=== PATIENT | male | born 1955 | race Caucasian/White ===

== ENCOUNTER 2025-04-01 12:28 | Outpatient (REF) | payer MEDICARE, MEDICAID, SELFPAY ==
--- OUTSIDE RECORDS SUMMARY | 2025-03-16 05:16 | XMS_ITS | Encounter Summary ---
Author Organization [employer] [facility] tem Address [id number] [address] [place] [address] Care Team Providers Care Cabinet Builder Name Role Phone Gato Cha MD Primary Care Provider [phone] Reason for Referral * Misc (Routine) - AuthorizedSpecialtyDiagnoses / ProceduresReferred By Contact Referred To Contact Procedures Discharge follow-up Deana Albert MD [address] [place] [address] Phone: tel: fax: Referral IDStatusReasonStart DateExpiration DateVisits RequestedVisits [id number]/11/202512/11/202611 * Misc (Routine) - AuthorizedSpecialtyDiagnoses / ProceduresReferred By Contact Referred To Contact Procedures Discharge follow-up Deana Albert MD [address] [place] [address] Phone: tel: fax: Referral IDStatusReasonStart DateExpiration DateVisits RequestedVisits [id number]/11/202512/11/202611 * Misc (Routine) - AuthorizedSpecialtyDiagnoses / ProceduresReferred By Contact Referred To Contact Procedures Adult diet Deana Albert MD [address] [place] [address] [address] Phone: tel: fax: Referral IDStatusReasonStart DateExpiration DateVisits RequestedVisits [id number]/11/202512/11/202611 * Misc (Routine) - AuthorizedSpecialtyDiagnoses / ProceduresReferred By Contact Referred To Contact Procedures Discharge Follow-Up Deana Albert MD [address] [place] [address] [address] Phone: tel: fax: Referral IDStatusReasonStart DateExpiration DateVisits RequestedVisits [id number]/11/202512/11/202611 * Misc (Routine) - AuthorizedSpecialtyDiagnoses / ProceduresReferred By Contact Referred To Contact Procedures Discharge Follow-Up Deana Albert MD [address] [facility] [address] [address] Phone: tel: fax: Referral IDStatusReasonStart DateExpiration DateVisits RequestedVisits [id number]/11/202512/11/202611 * Misc (Routine) - AuthorizedSpecialtyDiagnoses / ProceduresReferred By Contact Referred To Contact Procedures Discharge Follow-Up Deana Albert MD [address] [address] Phone: tel: fax: Referral IDStatusReasonStart DateExpiration DateVisits RequestedVisits [id number]/11/202512/11/202611 * Misc (Routine) - AuthorizedSpecialtyDiagnoses / ProceduresReferred By Contact Referred To Contact Diagnoses Sepsis with encephalopathy and septic shock, due to unspecified organism ([facility]) Procedures Follow-up with primary care provider Daena Albert MD [address] [address] Phone: tel: fax: Referral IDStatusReasonStmingo junction DateExpiration DateVisits RequestedVisits [id number]/11/202512/11/202611 Reason for Visit * ReasonCommentsAltered Mental Status * Auth/CertSpecialtyDiagnoses / ProceduresReferred By ContactReferred To Contact Diagnoses Sepsis with encephalopathy and septic shock, due to unspecified organism ([facility]) Sumit Osborne MD [address] [facility], [address] [place] [address] Phone: tel: fax: Referral IDStatusAlissaasonTama DateExpiration DateVisits RequestedVisits [id number] Encounter Details DateTypeDepartmentCare Team (Latest Contact Info)Avquszwjfmm66/03/2025 5:16 AM EST - 03/25/2025 1:20 AM ESTHospital Encounter [facility] [address] [place] [id number] Fritz, Aurelio, DO [address] [facility], 3rd [place] [address] Sumit Osborne MD [address] [facility], [address] [place] [address] Michelle Howell MD [address] [facility], [address] [place] [address] Celina Mckeon, [address] [address] Landy Ness MD [address] [place] [address] Ricarda Reece MD [address] [place] [address] Deana Albert MD [address] [address] Sepsis with encephalopathy and septic shock, due to unspecified organism ([facility]) (Primary Dx); Pneumonia of right lower lobe due to infectious organism; ESRD (end stage renal disease) ([facility]) Discharge Disposition: [facility] Facility-Medicare Cert Social History Tobacco UseTypesPacks/DayYears UsedDateSmoking Tobacco: NeverSmokeless Tobacco: Never Comments:02/25 [facility] - AMS, un able to reach family. Per [place] pt does not have history of smoking on file with them Alcohol UseStandard Drinks/WeekCommentsDefer0 (1 standard drink = 0.6 oz pure alcohol)02/25 [facility] - AMS, unable to reach family.AUDIT-CAnswerDate RecordedQ1: How often do you have a drink containing alcohol?Patient unable to answer 02/25/2025Q2: How many drinks containing alcohol do you have on a typical day when you are drinking?Patient unable to wefcjp3302/25/2025Q3: How often do you have six or more drinks on one occasion?Patient unable to gfexug0702/25/2025 PRAPARE - TransportationAnswerDate RecordedIn the past 12 months, has lack of transportation kept you from medical appointments or from getting medications?No 02/25/2025In the past 12 months, has lack of transportation kept you from meetings, work, or from getting things needed for daily living?No02/25/2025HC UtilitiesAnswerDate RecordedIn the past 12 months has the electric, gas, oil, or water company threatened to shut off services in your home?No02/25/2025Housing InstabilityAnswerDate RecordedAre you worried or concerned that in the next two months you may not have stable housing that you own, rent or stay in as a part of a household?No02/25/2025hildcareAnswerDate RecordedChildcareUnknown 09/21/2018EmploymentAnswerDate DfppdgxqBihewplbmaEhbrkzn56/10/2019Hunger ScreeningAnswerDate RecordedWithin the past 12 months we worried whether our food would run out before we got money to buy more.Never True03/19/2025Within the past 12 months the food we bought just didn't last and we didn't have money to get more.Never True03/19/2025Sex and Gender InformationValueDate RecordedSex Assigned at BirthNot on fileLegal ZgxTtmu9511/15/2014 1:57 PM EDTGender Identity Not on fileSexual OrientationNot on filedocumented as of this encounter Last Filed Vital Signs Vital SignReadingTime TakenCommentsBlood Ccjuywew728/8203/24/2025 10:06 PM EST Ciykp012603/24/2025 10:06 PM GZKSfztrhzwolb10.9 ??C (98.5 ??F)03/24/2025 7:34 PM ESTRespiratory Opzz981505/25/2024 9:09 PM ESTOxygen Pdaguinpdn207%03/24/2025 9:09 PM ESTInhaled Oxygen Concentration--Vhnbcr42.9 kg (176 lb 2.4 oz)03/24/2025 3:23 PM TBPQfwctp549.2 cm (5' 7 )03/22/2025 10:11 AM ESTBody Mass Index27.59 03/22/2025 10:11 AM ESTdocumented in this encounter Functional Status * VitalsQuestionAnswerDate of WzijztmeksDntklwSD298/8203/24/2025 10:06 PM EST Rylee Baez ZOTrlkq2561/11/2025 10:06 PM Rylee Cook RNHeight67 03/22/2025 10:11 AM Elsa Barboza RN * HEENTQuestionAnswerDate of AssessmentAuthorHEENT (WDL)X105/25/2024 7:34 PM Rylee Casas RNR IfkDjepsw14/11/2025 7:34 PM Rylee Cook RNL EyeIntact 03/24/2025 7:34 PM Rylee Cook RNR EarImpaired Hearing;Inqwot2603/23/2025 7:27 AM Parrish Gresham RNL EarIntact;Impaired Jjhsrru0603/23/2025 7:27 AM Parrish Gresham SSNwbkXymdpd06/10/2025 7:27 AM Parrish Gresham, MISTYNasal Drainage ColorUnable to lydbnn9303/23/2025 7:27 AM Parrish Gresham, MISTYNasal Drainage ConsistencyUnable to hixltz3303/23/2025 7:27 AM Parrish Gresham RNThroatIntact;Dry03/23/2025 7:27 AM Parrish Gresham JEPhspysJom67/11/2025 7:34 PM Rylee Cook RNVoiceHoarse 03/23/2025 7:27 AM Parrish Gresham RNMucous Membrane(s)Intact;Dry 03/24/2025 7:34 PM Rylee Cook RNTeethMissing teeth03/24/2025 7:34 PM Rylee Cook RNHead and KtlcLojapwndziz37/11/2025 7:34 PM Rylee Cook RNNeckSymmetrical03/23/2025 7:27 AM Parrish Gresham RNLips Dry;Macmbntfgbq80/11/2025 7:34 PM Rylee Cook RN * ICP/PressureQuestionAnswerDate of AssessmentAuthorMAP (mmHg)8103/24/2025 7:34 PM Rylee Cook RN * IP Hunger/Food Insecurity ScreeningQuestionAnswerDate of AssessmentAuthor Within the past 12 months the food we bought just didn't last and we didn't have money to get more.Never True03/19/2025 3:47 PM Luh Galicia RNWithin the past 12 months we worried whether our food would run out before we got money to buy more.Never True03/19/2025 3:47 PM Luh Galicia RNHunger Screening Complete?Yes03/19/2025 3:47 PM Luh Galicia RNPt. Eligible for Food / SvajpubCo84/06/2025 3:47 PM Luh Galicia RN * Mobility AssessmentQuestionAnswerDate of AssessmentAuthorFailed Criteria Vasopressor(s)03/18/2025 8:00 AM Dia Gandara * ActivityQuestionAnswerDate of AssessmentAuthorActivity PerformedResting in bed 03/24/2025 7:34 PM Rylee Cook RNActivity ResponseTolerated well 03/23/2025 7:41 PM Rylee Cook RNRange of MotionActive;All extremities 03/23/2025 7:41 PM Rylee Cook RNToileting AssistanceAssist with urinal 03/23/2025 7:27 AM Parrish Gresham RNRepositionedSemi Merritt's;Lying left side;Pillow smdxspl7903/25/2025 12:30 AM Rylee Cook RNTransport MethodBed;Vlefrwgsj79/11/2025 8:45 AM Rosana Zafar RN * Deterioration IndexQuestionAnswerDate of AssessmentAuthorDeterioration Index (30-60 mod; 60+ high)43.9503/25/2025 1:15 AM Blake Clindonella * Pulmonary MechanicsQuestionAnswerDate of NxdpjohvwbIxpkiaXlfa1894/11/2025 9:09 PM Jozef Jackson RCP * BEE (kcal)AnswerDate of TnsinuokvyUwcwtt806599/09/2025 10:11 AM Elsa Barboza RN * Opioid Screening (SAFER)QuestionAnswerDate of AssessmentAuthorDo you struggle with any opiates (such as Oxycodone, [place], Percocet, Morphine, Fentanyl, Heroin) that you may need help?Unable to Rgtbty8603/16/2025 5:34 AM Nory Hayes RN * Clinical Practice Guidelines OrderedQuestionAnswerDate of AssessmentAuthor Oxygen IndicationsHome oxygen use03/19/2025 1:54 PM Aurelio Zapata RCP Bronchodilator IndicationsDiseases requiring aerosolized medication;Home duffzon5503/24/2025 10:06 AM Delisa Mejia, PHILPBronchodilator Total2 03/24/2025 10:06 AM Delisa Mejia, PHILPConsult Assessment Consult;Ioipjhqsjpzlcm16/11/2025 10:06 AM Delisa Mejia RCP * Pneumonia Vaccine Screen 65 and OverQuestionAnswerDate of AssessmentAuthorHas the patient received a dose of any pneumococcal vaccine?Prevnar 13 (PCV13) + Pneumovax 23 (PPSV23)03/16/2025 12:01 PM Mirlande Lovelace RNWas a dose of PPSV23 given after the age of 65?Yes03/16/2025 12:01 PM Mirlande Lovelace RNPneumococcal Vaccine Decision:STOP - No Pneumococcal vaccine is indicated 03/16/2025 12:01 PM Mirlande Lovelace RNAre any of the following pneumococcal vaccine contraindications present?No taeowgxdkigqpvtas24/03/2025 12:01 PM Mirlande Lovelace RN * Vital SignsQuestionAnswerDate of ZrvjulzrnrRnxxkfFcO731983/11/2025 9:09 PM Jozef Terrazas RCPO2 DeviceNone (Room air)03/24/2025 9:02 PM Jozef Jackson RCPHeart Rate SourcePulse Ox03/24/2025 9:02 PM Jozef Jackson RCP FiO2 (%)28105/19/2024 8:52 PM Kimberly Munroe RCPPatient Position Semi-ltgvryo4403/24/2025 9:02 PM Jozef Jackson RCP * Skin ManagementQuestionAnswerDate of AssessmentAuthorSkin InspectionWNL 03/24/2025 9:52 AM Trang Prince RCP * Sepsis RN ScreeningQuestionAnswerDate of AssessmentAuthorReasons for Suspending Sepsis Early Detection Alerts (12h)Sepsis not suspected per ywusxfkb22/07/2025 7:15 PM Britni Pastor RN * Fall Risk 65+QuestionAnswerDate of AssessmentAuthorHave you fallen in the past year?1. 5:34 AM Nory Hayes RNDo you feel unsteady while standing or walking?1. 5:34 AM Nory Hayes RNDo you worry about falling?1. 5:34 AM Nory Hayes RNIs there an observable gait, strength or balance problem?1. 5:34 AM Nory Hayes RNIn the past year how many times have you fallen?3. 5:34 AM Nory Hayes RNWere you injured?2. 5:34 AM Nory Hayes RNScore9 03/16/2025 5:34 AM Nory Hayes RN * Stephanie Coma ScaleQuestionAnswerDate of AssessmentAuthorEye Cnssupa200/11/2025 7:34 PM Rylee Cook RNBest Motor Gtoydccj095/11/2025 7:34 PM Rylee Cook RNBest Verbal Qlqhodwp843/11/2025 7:34 PM Rylee Cook RNGlasgow Coma Scale Iwugt2439/11/2025 7:34 PM Rylee Cook RN * Vital SignsQuestionAnswerDate of AssessmentAuthorO2 Flow Rate (L/min)2 03/24/2025 3:23 PM Jb Martines RNIs this an Orthostatic BP?No03/24/2025 3:23 PM Jb Martines RNOrthostatic ErwnsjbcYwgh45/11/2025 3:23 PM Jb Wolf RN * Pain 2QuestionAnswerDate of AssessmentAuthorObserved BehaviorRestless 03/24/2025 10:25 PM Rylee Cook RN * Patient ObservationQuestionAnswerDate of NcvfpafpbuDdauduNfzncc4535.36 03/24/2025 3:23 PM Summer Deal RNPatient Observationspatient leaving HD to go back to room03/21/2025 2:23 PM Adelaide Rg LPN * VitalsQuestionAnswerDate of BnkhnrtixgQoycfpWyjp06. 7:34 PM Rylee Casas RNTemp vuwSfbm9703/24/2025 7:34 PM Rylee Cook RNBP LocationLeft arm03/24/2025 7:34 PM Rylee Cook RNBP MethodAutomatic 03/24/2025 7:34 PM Rylee Cook RN * NeurologicalQuestionAnswerDate of AssessmentAuthorOrientation LevelOriented to person;Oriented to place;Oriented to age;Disoriented to situation;Oriented to time03/24/2025 7:34 PM Rylee Cook RNCognitionFollows commands;Poor judgement;Poor safety xpvroutvd56/11/2025 7:34 PM Rylee Cook RNSpeech Sgdmntk88/11/2025 7:34 PM Rylee Cook RNLUE Motor ResponseResponds to jzvrajmy16/11/2025 7:34 PM Rylee Cook RNLUE Sensation Numbness;Tingling;Svyalpyc20/11/2025 7:34 PM Rylee Cook RNLLE Motor ResponseResponds to hmrkjkfu59/11/2025 7:34 PM Rylee Cook RNLLE SensationNumbness;Tingling;Xocqjvqy17/11/2025 7:34 PM Rylee Cook RNRUE Motor ResponseResponds to vdghkiyn10/11/2025 7:34 PM Rylee Cook RNRUE SensationNumbness;Tingling;Xphgzgpk69/11/2025 7:34 PM Rylee Cook RNRLE Motor ResponseResponds to glignrwx07/11/2025 7:34 PM Rylee Cook RNRLE SensationNumbness;Tingling;Kepzjlxy19/11/2025 7:34 PM Rylee Cook RN Neuro (WDL)X105/25/2024 7:34 PM ESTKiptoo, Rylee, RNSwallowDifficulty cjqjkxzaqs63/11/2025 7:34 PM Rylee Cook, RNRLE Motor StrengthNormal power03/24/2025 7:34 PM Rylee Cook, RNLLE Motor StrengthNormal power 03/24/2025 7:34 PM Rylee Cook, RNL Hand MpyigEmhdrkcz82/11/2025 7:34 PM Rylee Cook, RNR Hand HnuitQltwmbmy34/11/2025 7:34 PM Rylee Cook, RNRUE Motor StrengthNormal power03/24/2025 7:34 PM Rylee Cook, RNLUE Motor StrengthNormal power03/24/2025 7:34 PM Rylee Cook, RNBalanceUnable to hhcrtl0103/24/2025 7:34 PM Rylee Cook, RNPupil HuohnnenpsGei19/11/2025 7:34 PM Rylee Cook, RNR Pupil Size (mm) 7:34 PM Rylee Cook, RNR Pupil NnayyArarg33/11/2025 7:34 PM Rylee Cook, RNR Pupil ZhrhzirjZahde26/11/2025 7:34 PM Rylee Cook, RNL Pupil Size (mm)2 03/24/2025 7:34 PM Rylee Cook, RNL Pupil AaegxYjmji64/11/2025 7:34 PM Rylee Cook, RNL Pupil SysxyxtlKnbfy2025 7:34 PM Rylee Cook, RNR Foot JdsynezrcnciOaxm68/11/2025 7:34 PM Rylee Cook, RNL Foot HhcnowbexmssBsrg23/11/2025 7:34 PM Rylee Cook, RNR Foot Plantar Flexion Weak03/24/2025 7:34 PM Rylee Cook, RNL Foot Plantar FlexionWeak 03/24/2025 7:34 PM Rylee Cook, RNTongue StrvdzppmSyiv28/11/2025 7:34 PM Rylee Cook, RNNeuro UqaphjsaJqld68/11/2025 7:34 PM Rylee Cook RN Relieved byListening and hoxvfylome09/06/2025 4:23 PM Mahsa Field RNNeuro Additional SusekriaheyFz89/06/2025 1:45 AM Flori Hoff RNMotor Function/Sensation AssessmentGrip;Dorsiflexion;Plantar flexion;Motor response;Motor strength;Epfbhybws70/11/2025 7:34 PM Rylee Cook, RNFacial KoomfkxfNhfmdahntxq44/11/2025 7:34 PM Rylee Cook RNRichmond Agitation Sedation Scale (RASS) 6:03 AM Britni Pastor RN * RespiratoryQuestionAnswerDate of AssessmentAuthorRespiratory (WDL)X105/25/2024 7:34 PM Rylee Cook RNVentilator WnyipshKb42/10/2025 7:27 AM Parrish Gresham RNRespiratory Additional VwrulorklenYk85/10/2025 7:27 AM Parrish Smith RN * Pacemaker/ICDQuestionAnswerDate of AssessmentAuthorPacemaker/ICDPacemaker 03/24/2025 7:34 PM Ryele Cook RNCardiac RhythmNormal sinus rhythm 03/24/2025 8:45 AM Rosana Zafar RNEctopyPremature ventricular contractions 03/23/2025 7:27 AM Parrish Gresham RNEctopy FrequencyOccasional 03/23/2025 7:27 AM Parrish Gresham RNPacemaker UavjUvnqhwupj84/11/2025 7:34 PM Rylee Cook RN * Bowel SoundsQuestionAnswerDate of AssessmentAuthorRUQ Bowel SoundsActive 03/24/2025 7:34 PM Rylee Cook RNRLQ Bowel TvrlkvLrhpdb19/11/2025 7:34 PM Rylee Cook RNLUQ Bowel TsmbttBaoedl11/11/2025 7:34 PM Rylee Cook RNLLQ Bowel BtudltEywlpx58/11/2025 7:34 PM Rylee Cook RN * GastrointestinalQuestionAnswerDate of AssessmentAuthorLast Rvev77665 03/24/2025 7:34 PM Rylee Cook, RNPassing UplxbuOcw41/11/2025 8:45 AM Rosana Hernandez RNGastrointestinal (WDL)WDL105/25/2024 7:34 PM Rylee Cook RNAbdomen AssessmentSoft;Limemvhvimkn46/11/2025 7:34 PM Rylee Cook RN Appears NourishedWell Tcsohweye88/11/2025 7:34 PM Rylee Cook RNGI HjybmilsWifz20/11/2025 7:34 PM Rylee Cook RNGastrointestinal Additional WogymxjbrpiAf31/11/2025 7:34 PM Rylee Cook RN * EdemaQuestionAnswerDate of NpbdznfwquKvdzolXyhyctv056/11/2025 7:34 PM Rylee Casas RNRLE Edema+ 7:27 AM Parrish Gresham RNLLE Edema+ 7:27 AM Parrish Gresham, MISTY * RUE Peripheral Vascular AssessmentQuestionAnswerDate of AssessmentAuthorR Radial Pulse+ 7:34 PM Rylee Cook RN * LUE Peripheral Vascular AssessmentQuestionAnswerDate of AssessmentAuthorL Radial Pulse+ 7:34 PM Rylee Cook RN * RLE Peripheral Vascular AssessmentQuestionAnswerDate of AssessmentAuthorR Posterior Tibial Pulse+ 8:00 PM Georgia Hargrove RNR Dorsalis Pedis/Pedal Pulse+ 7:34 PM Rylee Cook RN * LLE Peripheral Vascular AssessmentQuestionAnswerDate of AssessmentAuthorL Posterior Tibial Pulse+ 9:30 AM Rosana Zafar RNL Dorsalis Pedis/Pedal Pulse+ 7:34 PM Rylee Cook RN * MusculoskeletalQuestionAnswerDate of AssessmentAuthorRUEFull movement 03/24/2025 7:34 PM Rylee Cook RNRLEFull movement;Kmiffgpf61/11/2025 7:34 PM Rylee Cook RNLUEFull fmmejduj2025 7:34 PM Rylee Cook RNLLEFull movement;Dkkscoky43/11/2025 7:34 PM Rylee Cook RN Musculoskeletal (WDL)X105/25/2024 7:34 PM Rylee Cook RNMusculoskeletal Additional FvaaicjyvifEn36/10/2025 7:27 AM Parrish Gresham RN * Urine AssessmentQuestionAnswerDate of AssessmentAuthorUrinary IncontinenceYes 03/24/2025 8:45 AM Rosana Zafar RN * Anus/RectumQuestionAnswerDate of AssessmentAuthorAnus/Rectum ([facility])WDL 03/24/2025 7:34 PM Rylee Cook RN * PsychosocialQuestionAnswerDate of AssessmentAuthorPatient Behaviors/Mood Anxious;Fpxaakhay66/11/2025 7:34 PM Rylee Cook RNNeeds ExpressedDenies 03/24/2025 7:34 PM Rylee Cook RNPsychosocial ([facility])X105/25/2024 7:34 PM Rylee Cook RNPerson/Family VisitationNo visitors dxinmai9103/24/2025 7:34 PM Rylee Cook RNPsychosocial Additional YrnjxujyekdIc89/11/2025 7:34 PM Rylee Cook RNAbility to Express FeelingsAble to jisvcou5303/24/2025 7:34 PM Rylee Cook RNAbility to Express NeedsAble to tohboez7603/24/2025 7:34 PM Rylee Cook RNAbility to Express ThoughtsAble to asztkra5603/24/2025 7:34 PM Rylee Cook RNAbilbrenden to Understand OthersSometimes understands 03/24/2025 7:34 PM Rylee Cook RN * IntakeQuestionAnswerDate of AssessmentAuthorPercent Meals Eaten (%)25 03/24/2025 1:00 PM Rosana Zafar RN * Arriaga Fall RiskQuestionAnswerDate of AssessmentAuthorHistory of Falling0 03/24/2025 7:34 PM Rylee Cook, RNSecondary Iffrvadnn4762/11/2025 7:34 PM Rylee Cook, RNAmbulatory Fcty33805/25/2024 7:34 PM Rylee Cook RN Intravenous Therapy/Heparin/Saline Ecuz536305/25/2024 7:34 PM Rylee Cook RNGait/Srzhsxzboejy528/11/2025 7:34 PM Rylee Cook RNMental Ezacsr51 03/24/2025 7:34 PM Rylee Cook, QNGymnk2477/11/2025 7:34 PM Rylee Cook RN * Jus ScaleQuestionAnswerDate of AssessmentAuthorSensory Perceptions3 03/24/2025 7:34 PM Rylee Cook QOHliptlmn417/11/2025 7:34 PM Rylee Cook, MOIrjplvwk936/11/2025 7:34 PM Rylee Cook LOFigshgae941/11/2025 7:34 PM Rylee Cook UWZlymliqxf625/11/2025 7:34 PM Rylee Cook RN Friction and Jiypr43605/25/2024 7:34 PM Rylee Cook RNBraden Scale Score16 03/24/2025 7:34 PM Rylee Cook RN * BSA (Calculated - sq m)AnswerDate of AssessmentAuthor1.9703/22/2025 10:11 AM Elsa Barboza, MISTY * BMI (Calculated)AnswerDate of WgioqnacmfVhwrze81.312 10:11 AM Elsa Jeronimo, MISTY * Charting TypeQuestionAnswerDate of AssessmentAuthorCharting TypeShift yveocatpnt22/11/2025 7:34 PM Rylee Cook RN * Inhalation TherapyQuestionAnswerDate of AssessmentAuthorVolume to be Infused: pulm105/25/2024 9:05 PM Jozef Jackson RCPDelivery TmmsdtCevoxf45/11/2025 9:05 PM Jozef Jackson RCPDuration (Minutes)8105/25/2024 9:52 AM Trang Prince, PHILPPositionHigh Merritt'03/24/2025 9:05 PM Jozef Jackson RCP LsgsciXrdcwtcgj37/11/2025 9:05 PM Jozef Jackson RCP * Patient InformationQuestionAnswerDate of AssessmentAuthorPrimary Caregiver Pulgys4203/19/2025 3:47 PM Luh Galicia RNSupport SystemFamily Members 03/19/2025 3:47 PM Luh Galicia RNReligious/Cultural Factorsdenies 03/19/2025 3:47 PM Lhu Galicia RNInitial Pre-Hospitalization Assessment Completed?Yqjgmuajh89/06/2025 3:47 PM Luh Galicia RN * Activities of Daily LivingQuestionAnswerDate of AssessmentAuthorFunctional StatusTotally odhelryyc13/06/2025 3:46 PM Luh Galicia, RNAmbulationMaximum /06/2025 3:46 PM Luh Galicia RNPGXbmiqetkBegnypwt78/06/2025 3:46 PM Luh Galicia RNDressingNeeds mlmsyvostr49/06/2025 3:46 PM Luh Shelby, RNGroomingNeeds voskilscnm19/06/2025 3:46 PM Luh Galicia RN FeedingNeeds wpchjztgqi35/06/2025 3:46 PM Luh Galicia RNBathingNeeds tspxkynvlz44/06/2025 3:46 PM Luh Galicia RNToiletingNeeds assistance 03/19/2025 3:46 PM Luh Galicia, RN * Services RequestedQuestionAnswerDate of AssessmentAuthorDoes the patient need discharge transportation arranged?Yes03/19/2025 3:47 PM Luh Galicia RN Discharge DispositionSkilled Msngao1903/19/2025 3:47 PM Luh Galicia RN Patient expects to be discharged to:[place]03/19/2025 3:47 PM Luh Galicia RNTransportation ZsvhbpijWmkqdilaz64/06/2025 3:47 PM Luh Galicia RNSkilled [place]/19/2025 3:47 PM Luh Galicia RNSkilled Return Fax Vvqxni111-390-931638/06/2025 3:47 PM Luh Galicia RNSkilled Return Phone Nomcjw957-614-497913/06/2025 3:47 PM Luh Galicia RNDoes the patient wish to have family/friend/caregiver involved in their discharge planning?Yes03/19/2025 3:47 PM Luh Galicia RNDoes the patient plan to return home to a community setting?No, patient to discharge to facility-based provider. See Discharge Cpamashwiub28/06/2025 3:47 PM Luh Galicia RNList ProvidedOther (comment)03/19/2025 3:47 PM Luh Galicia RNPatient choice offeredOther (comment)03/19/2025 3:47 PM Luh Galicia RN * Discharge PlanningQuestionAnswerDate of AssessmentAuthorSupport SystemsFamily members;Other (Comment)03/16/2025 12:02 PM Mirlande Lovelace RNDoes the patient need discharge transport arranged?Yes03/16/2025 12:02 PM Mirlande Lovelace RN * Stool AssessmentQuestionAnswerDate of AssessmentAuthorStool ColorBrown 03/23/2025 7:27 AM Parrish Gresham RNStool BqktfhFegody84/10/2025 7:27 AM Parrish Gresham RNBowel QqdurqxihjkcUtl03/10/2025 7:27 AM Parrish Gresham RN * GenitourinaryQuestionAnswerDate of AssessmentAuthorMale Genitalia Intact;Enlarged oradngr2303/24/2025 8:45 AM Rosana Zafar RNGenitourinary (WDL)X105/25/2024 8:45 AM Rosana Zafar RNGenitourinary SymptomsIncontinence (bladder);Diminished urine tkaepejjxl21/11/2025 8:45 AM Rosana Zafar RN * Abuse Indicator ScreeningQuestionAnswerDate of AssessmentAuthorSafe in HomeUTA 03/16/2025 5:34 AM Nory Hayes RNDo you feel safe in your relationship(s)?UTA03/16/2025 5:34 AM Nory Hayes RNAre you in immediate danger?UTA03/16/2025 5:34 AM Nory Hayes RN * Baseline AssessmentQuestionAnswerDate of AssessmentAuthorTemperature Spikes LnjpoZf8403/24/2025 10:52 AM Magaly Aguila CCC-SLPBehavior/Cognition Alert;Aveogemzwic17/11/2025 10:52 AM Magaly Aguila CCC-SLPVision Functional for self-dgfidjy9103/24/2025 10:52 AM Magaly Aguila CCC-SLP Patient PositioningUpright in bed03/24/2025 10:52 AM Magaly Aguila CCC-SLPBaseline Vocal QualityWet/lziuyj3803/17/2025 11:05 AM Trena Headley CCC-SLPVolitional MfcfzPmbm99/04/2025 11:05 AM Trena Headley CCC-SLP Volitional DzuntokIbxkydm01/04/2025 11:05 AM Trena Headley CCC-SLP DiemeiopqGsjfwgmfyn19/11/2025 10:52 AM Magaly Aguila CCC-SLP Additional Testing ResultsChest X-Ray;CT03/24/2025 10:52 AM Magaly Aguila CCC-SLPLaryngectomyNo03/24/2025 10:52 AM Magaly Aguila CCC-SLPAbility to Control XnpiwadefsSqi52/11/2025 10:52 AM Magaly Aguila CCC-SLP * Consistencies AssessedQuestionAnswerDate of AssessmentAuthorConsistencies WwaacitpAbz13/04/2025 11:05 AM Trena Headley CCC-SLP * Safe EnvironmentQuestionAnswerDate of AssessmentAuthorHourly RoundingYes 03/24/2025 10:00 PM Rylee Cook RNArm Bands OnID;Allergies;Fall 03/24/2025 10:00 PM Rylee Cook RNCall Sher Within JracuPpa49/11/2025 10:00 PM Rylee Cook RNOverbed Table Within MvmdnWbn11/11/2025 10:00 PM Rylee Cook RNBed In Lowest UjvmlvmfGte65/11/2025 10:00 PM Rylee Cook RNBed Wheels PnzuheIcw71/11/2025 10:00 PM Rylee Cook RNSide Rails/Bed Safety3/ 10:00 PM Rylee Cook RNNonSkid Footwear On;Patient in bed03/24/2025 10:00 PM Rylee Cook RNBed/Chair Alarm On Yes/Qedfqaz1103/24/2025 10:00 PM Rylee Cook RN * Hygiene and AssistanceQuestionAnswerDate of AssessmentAuthorSkin CareAnti- fungal powder;Barrier cream/ointment;Cornstarch/Baby powder;Moisturizing Hihfkk0603/24/2025 9:22 AM Dorcas Renteria CNAHygieneBrief changed;Diaper edafsas9803/24/2025 4:45 PM Dorcas Renteria CNAOral CareMouth swabbed 03/24/2025 5:51 AM Kirsten Preston CNAEye CareEyes lucpmvhe03/10/2025 7:41 PM Rylee Cook RNApplied to:Cspekyru05/11/2025 4:51 AM Rylee Cook RNCHG (Chlorhexidine Gluconate) ZzypmqsSqkhsjiup63/11/2025 4:51 AM Rylee Cook RN * PrecautionsQuestionAnswerDate of AssessmentAuthorPrecautions Aspiration/Swallowing;Fall03/24/2025 7:34 PM Rylee Cook RN * Comfort and Environment InterventionsQuestionAnswerDate of AssessmentAuthor Comfort/Environmental InterventionsSpecial mattress/bed03/23/2025 7:27 AM Parrish Smith RN * Safety Equipment at BedsideQuestionAnswerDate of AssessmentAuthorSafety Equipment at BedsideOxygen setup03/23/2025 7:41 PM Rylee Cook RN * Level 4 PureedQuestionAnswerDate of AssessmentAuthorPresentationSpoon 03/17/2025 11:05 AM Trena Headley CCC-SLPOralDecreased bolus formation;Decreased A-P zbkwqlxfxu66/04/2025 11:05 AM Trena Headley CCC-MILKAPharyngealDelayed swallow nmdukernfu31/04/2025 11:05 AM Trena Headley CCC-MILKA * Level 0 ThinQuestionAnswerDate of ZvrnsenvyxRsrbzgMmkuunoanwtpAvrty78/04/2025 11:05 AM Trena Headley CCC-SLPOralSuspect premature qgueboas71/04/2025 11:05 AM Trena Headley CCC-MILKAPharyngealDelayed swallow initiation;Decreased laryngeal elevation;Wet/gurgly vocal niabbwe6803/17/2025 11:05 AM Trena Headley CCC-SLP * Oral/MotorQuestionAnswerDate of AssessmentAuthorLabial CBRAwllemb26/04/2025 11:05 AM Trena Headley CCC-MILKALabial TlhdmgozHgdsbym57/04/2025 11:05 AM Trena Headley CCC-SLPLingual XDRBxdoamw05/04/2025 11:05 AM Trena Headley CCC-SLPLingual HowhyrvmJnkdqdf30/04/2025 11:05 AM Trena Headley CCC-DGSDbrFqov24/04/2025 11:05 AM Trena Headley CCC-NRQCjayKwbu92/04/2025 11:05 AM Trena Headley CCC-SLPVocal KklvuwyO89/04/2025 11:05 AM Trena Headley CCC-SLPVocal QupixcafcZAO33/04/2025 11:05 AM Trena Headley CCC-PROPRIETARY TRADER Overall Oral/Motor QlkgfeB54/04/2025 11:05 AM Trena Headley CCC-SLPLabial JxglirlxpehdBwnsahi86/04/2025 11:05 AM Trena Headley CCC-SLPLingual VbompwqddhvaFciugmw33/04/2025 11:05 AM Trena Headley CCC-SLP * Provider CommunicationQuestionAnswerDate of AssessmentAuthorProvider Role Consulting yerczqwgi82/11/2025 3:00 PM Summer Deal RNProvider NameDr. Maritza Caawjh5703/24/2025 3:00 PM Summer Deal RNMethod of AhrxckrdfhsbqLfsp23/11/2025 3:00 PM Summer Deal RNResponseSee pzqsqp1103/24/2025 3:00 PM Summer Deal RN * Harm Risk AssessmentQuestionAnswerDate of AssessmentAuthorAre you having thoughts of homicide or causing harm to others?No03/16/2025 1:58 PM Alla Samuel RN * Neuro Additional AssessmentsAnswerDate of TodikicnwbUkkxcyUBD43/03/2025 5:35 AM Brandi Chang RN * Special Mattress/BedAnswerDate of AssessmentAuthorLow air loss03/23/2025 7:27 AM Parrish Gresham RN * Blood HistoryQuestionAnswerDate of AssessmentAuthorHave you had a blood transfusion?Vetcvxu8103/16/2025 5:34 AM Nory Hayes RNWould you accept a blood transfusion in a life-threatening situation?Ldluisp1503/16/2025 5:34 AM Nory Hayes RN * Medium/High Fall Risk Interventions (score = 25 and higher)AnswerDate of AssessmentAuthorAdequate lighting/nightlight;Bed alarm;Bed/low position;Bed or chair locked;Call light within reach;Chair alarm on;Diversional activity;Evaluate SPH needs;Fall risk ID band;Reinforce fall risk limits; [place] footwear;Patient fall risk education reinforced;[place] to environment;Personal items withinreach;PT/OT consult;Side rails up x3;Supervise patient dvcvkc4803/24/2025 7:34 PM Rylee Cook RN * VTE Nursing InterventionsQuestionAnswerDate of AssessmentAuthorVTE Prophylaxis TgtlddJyuetzvtrb63/11/2025 7:34 PM Rylee Cook RNType of [facility] VTE ProphylaxisIntermittent pneumatic cuffs (IPC/EPC)03/23/2025 7:41 PM Rylee Cook RNIntermittent Pneumatic Cuff (IPC/EPC)Bilateral lower extremities;Off;Patient odteivf4003/23/2025 7:41 PM Rylee Cook RN * HeadacheQuestionAnswerDate of AssessmentAuthorComplaint of HeadacheNo 03/24/2025 7:34 PM Rylee Cook RN * NeurologicalQuestionAnswerDate of AssessmentAuthorL Pupil ReactionBrisk 03/16/2025 5:35 AM Brandi Chang RNL Pupil Size (mm) 5:35 AM Brandi Taveras RNR Pupil RlydwnxiEgpuw12/03/2025 5:35 AM Brandi Chang RNR Pupil Size (mm) 5:35 AM Brandi Chang RNLevel of Consciousness Responds to Pain03/16/2025 5:35 AM Brandi Chang RNR Pupil ShapeRound 03/16/2025 5:35 AM Brandi Chang RNL Pupil HgjpzSkrzv99/03/2025 5:35 AM Brandi Taveras RNNeuro (WDL)X105/17/2024 5:35 AM Brandi Chang RN * Patient Safety ChecksQuestionAnswerDate of AssessmentAuthorTransducer CheckN/A 03/24/2025 3:00 PM Jb Martines RNAccess YstukVyx87/11/2025 3:00 PM Jb Wolf RNArterial/Venous parameters jylWlm5303/24/2025 3:00 PM Jb Wolf, RNSaline Line double wytoigqEut45/11/2025 3:00 PM Jb Martines RNAir Detector GivsvapEjt81/11/2025 3:00 PM Jb Martines RN Arteriovenous Lines GqaeimLmi22/11/2025 3:00 PM Jb Martines RNHemosafe Clip OnYe03/24/2025 3:00 PM Jb Martines RN * PrescriptionQuestionAnswerDate of AssessmentAuthorEstimated Dry Weight (kg) 2821.8903/21/2025 11:44 AM Shama Victor LPN * Machine ReadingsQuestionAnswerDate of AssessmentAuthorTreatment Status Fnkcyboqv10/11/2025 3:22 PM Jb Martines RN * Height and WeightQuestionAnswerDate of AssessmentAuthorWeight MethodBed scale 03/24/2025 3:23 PM Jb Martines RNPre-Treatment Uwnxmh5921.42105/25/2024 1:16 PM Summer Deal RNPost-Treatment Bzkcst0163.36105/25/2024 3:23 PM Jb Martines RNWeight Change for Billing (kg) (read only)79.9 03/24/2025 3:23 PM Jb Martines RNTreatment Weight Change (kg)-0.2 03/24/2025 3:23 PM Jb Martines RN * Time-OutQuestionAnswerDate of AssessmentAuthorCorrect Treament LocationYes 03/24/2025 1:16 PM Summer Deal RNCorrect Water Quality Checks RejregukjLsy55/11/2025 1:16 PM Summer Deal RNCorrect PatientY 03/24/2025 1:16 PM Summer Deal RNCorrect Access SiteYes 03/24/2025 1:16 PM Summer Deal RNCorrect Treatment OrdersYes 03/24/2025 1:16 PM Summer Deal RNConsents ZhfcrfjaOce47/11/2025 1:16 PM Summer Deal RNRad Studies AvailableN/A105/19/2024 8:17 AM Jelena De Luna RNLab Results LxfbhdqvpZqc10/11/2025 1:16 PM ESTHenderson, Summer, RNSafety Precautions TnxqfbebRji45/11/2025 1:16 PM Summer Deal RN * Pre-Hemodialysis AssessmentQuestionAnswerDate of AssessmentAuthorTreatment LocationChronic Unit03/24/2025 1:16 PM Summer Deal RN * Patient belongings returned?AnswerDate of DgyzqtbmjzEzhfcmRen57/12/2025 1:26 AM Rylee Cook RN * Belongings returned to?AnswerDate of CbgpjjfnwdIwvklcHckprha18/12/2025 1:26 AM Rylee Cook RN * Belongings returned from security/ safe?AnswerDate of AssessmentAuthorNone to fjgwvq2503/25/2025 1:26 AM Rylee Cook RN * Family/Corporate Travel Manager Notified of TransferQuestionAnswerDate of Assessment AuthorFamily/Corporate Travel Manager Notified of TransferUnable to reach03/19/2025 11:31 AM Mahsa Field RN * Readmission RiskQuestionAnswerDate of AssessmentAuthorRisk of Unplanned Readmission (30+ danger)27.7105/26/2024 1:29 AM Blake Clinvijaya * Adult Sepsis RiskQuestionAnswerDate of AssessmentAuthorSIRS Criteria1 03/25/2025 1:20 AM Yael Lozano of Sepsis v.22. 1:20 AM Alaina Lozano * Skin Breakdown PreventionQuestionAnswerDate of AssessmentAuthorBed PositionHOB 45105/25/2024 8:45 AM Rosana Zafar RNPreventative Dressing TypeDry Dressing 03/21/2025 7:45 AM Mahsa Field RNDressing LocationCoccyx/Muxrpy1103/21/2025 7:45 AM Mahsa Field RNDressing BavnmwXmswaeh26/08/2025 7:45 AM Mahsa Field RNExtremities ElevatedBilateral heels105/25/2024 8:45 AM Rosana Zafar RNProtective DeviceWaffle boot - mjdvoweuf99/11/2025 7:34 PM Rylee Cook RN * VisitQuestionAnswerDate of AssessmentAuthorOT Type of VisitDischarge from Therapy;Patient oqcgkwa3703/23/2025 9:30 AM Regan Reddy, OTR/LReason For Medical DeferralVitals outside safe tovftpqabs04/09/2025 7:33 AM Regan Reddy, OTR/LLab ResultsLow vmwiphuayo30/09/2025 7:33 AM Regan Reddy, OTR/LPT Type of VisitDischarge from Iujluyu1803/23/2025 9:31 AM Starr Rivas, PTRN EejyhhbneujyjLug47/10/2025 9:31 AM Starr Rivas, PTMedical Record SkpuqkhsPky70/10/2025 9:31 AM Starr Rivas, PT * Influenza Vaccine Screen - January Through JuneQuestionAnswerDate of AssessmentAuthorHave you had an influenza vaccine this season?Yes03/16/2025 2:50 PM Mirlande Lovelace RN * RN: Observer/Environment EvaluationQuestionAnswerDate of AssessmentAuthor ObserverNot vlqprnrum99/11/2025 7:34 PM Rylee Cook, MISTY * Bedside MonitorQuestionAnswerDate of AssessmentAuthorPulse Ox Monitoring Oqmekbeddo04/03/2025 5:34 AM Nory Hayes, MISTY * HEENTQuestionAnswerDate of AssessmentAuthorHEENT (WDL)WDL105/17/2024 5:35 AM Brandi Chang RN * Weight in (lb) to have BMI = 25AnswerDate of LbzsbisewqIitbjv478. 10:11 AM Elsa Barboza, MISTY * Respiratory AssessmentQuestionAnswerDate of AssessmentAuthorSubjective Commentspt wanted to keep chewing on nebulizer - kept with pt03/19/2025 8:26 PM Kong Patel RCPBilateral Breath YvbozwNlahe03/11/2025 9:09 PM Jozef Terrazas, PHILPRespiratory KbzysmkYfiumsa92/11/2025 9:09 PM Jozef Jackson RCPChest AssessmentChest expansion sygukadcceb51/11/2025 9:09 PM Jozef Terrazas RCPAssessment TypePost-cnmlrlius31/11/2025 9:09 PM Jozef Jackson RCPLevel of JanzaypmicyhdYffqn87/11/2025 9:09 PM Jozef Jackson RCP * Post-Hemodialysis AssessmentQuestionAnswerDate of AssessmentAuthorDialysis length of treatment in nfhyeme87285/11/2025 3:23 PM Jb Martines RN Catheter Ports Locked to fill volume with locking solution (See MAR)Yes 03/24/2025 3:23 PM Jb Martines RNMobility StatusBed Rest03/24/2025 3:23 PM Jb Martines RNRinseback Volume (mL)5004703/24/2025 3:23 PM Jb Martines RNTotal Liters Processed (L)41.512 3:23 PM Jb Martines RN Dialyzer MgbnpqptyOdtdc07/11/2025 3:23 PM Jb Martines RNHemodialysis Intake (mL)1545403/24/2025 3:23 PM Jb Martines RNHemodialysis Output (mL) 9026803/24/2025 3:23 PM Jb Martines RNPatient Response to Treatment toleratd poor03/24/2025 3:23 PM Jb Martines RNPost-Hemodialysis Comments See Post HD note03/24/2025 3:23 PM Jb Martines RNDischarge patient to: Room03/24/2025 3:23 PM Jb Martines RN * Blood Specimen Collection StatusQuestionAnswerDate of AssessmentAuthorBlood Specimen HuxzfnyjwyVsq59/10/2025 7:41 PM Rylee Cook RN * Pain AssessmentQuestionAnswerDate of AssessmentAuthorPain LocationGeneralized 03/24/2025 10:25 PM Rylee Cook RNPain Orientation Right;Left;Anterior;Pfwsrjewp28/10/2025 3:42 PM Parrish Gresham RNPain Intervention(s)Medication (See MAR)03/24/2025 10:25 PM Rylee Cook RN Pain Radiating TowardsN/A105/24/2024 3:42 PM Parrish Gresham RNPain DescriptorsAching;Oajvbfalph37/11/2025 10:25 PM Rylee Cook RNPain UjobelwwToevhuyujjwg40/11/2025 10:25 PM Rylee Cook RNPatient's Stated Acceptable Pain LevelNo pain03/24/2025 10:25 PM Rylee Cook RNResponse to InterventionsPain improved;Quiet03/23/2025 3:42 PM Parrish Gresham RNMultiple Pain FqhpbWj4603/23/2025 3:42 PM Parrish Gresham RNSelf Entered Pain Udrig32305/24/2024 4:31 AM Sally Larkin RNPain Assessment No/denies pain03/24/2025 11:25 PM Rylee Cook RN * FLACC (Face, Legs, Activity, Crying, Consolability)QuestionAnswerDate of AssessmentAuthorPain Rating: FLACC (Rest) - Whsh995 12:00 AM Georgia Hargrove RNPain Rating: FLACC (Rest) - Czfd169 12:00 AM Georgia Hargrove RNPain Rating: FLACC (Rest) - Aqmjtvbu550/04/2025 12:00 AM Georgia Hargrove RNPain Rating: FLACC (Rest) - Cem079 12:00 AM Georgia Hargrove RNPain Rating: FLACC (Rest) - Naqlxffansxmb658/04/2025 12:00 AM Georgia Heredia RNScore: FLACC (Rest) 12:00 AM Georgia Hargrove RNPain Rating: FLACC (Activity) - Egep518 4:00 PM En Li RNPain Rating: FLACC (Activity) - Xisd865 4:00 PM En Li RNPain Rating: FLACC (Activity) 4:00 PM En Li RNPain Rating: FLACC (Activity) - Mht10603/16/2025 4:00 PM En Li RNPain Rating: FLACC (Activity) - Gyqcmfmqwkbwh729/03/2025 4:00 PM En Li RNScore: FLACC (Activity)6105/17/2024 4:00 PM En Li RN * ReflexesQuestionAnswerDate of AssessmentAuthorL DjjvvacTgxkfs15/10/2025 7:27 AM Parrish Gresham RNCoughPresent03/23/2025 7:27 AM Parrish Gresham RNGagUnable to mwumje2403/23/2025 7:27 AM Parrish Gresham RNR GlfqqcaSlfxjt64/10/2025 7:27 AM Parrish Gresham, MISTY * NutritionQuestionAnswerDate of AssessmentAuthorFluid Restrictionsno fluids 03/23/2025 7:41 PM Rylee Cook RNCurrent Diet TypeLevel 5 Minced and Moist;Level 3 Moderately Thick03/24/2025 7:34 PM Rylee Cook, RNAppetite Good03/24/2025 8:45 AM Rosana Zafar RNSnackapple sauce & ogsvoel4303/23/2025 9:31 PM Rylee Cook RNRoom ServiceNon Appropriate for room service 03/24/2025 7:34 PM Rylee Cook RNNPO for:Per order03/17/2025 8:00 AM Trena Reagan RN * Respiratory InterventionsAnswerDate of AssessmentAuthorCough and deep breathe 03/23/2025 7:27 AM Parrish Gresham, MISTY * Cough and Deep BreatheQuestionAnswerDate of AssessmentAuthorCough and Deep FzmmonfAov64/10/2025 7:27 AM Parrish Gresham, MISTY * IntegumentaryQuestionAnswerDate of AssessmentAuthorSkin Integrity Bruising;Excoriation;Vlgtsni0703/24/2025 8:45 AM Rosana Zafar RNSkin Color Pale;Ebrgxnuisz99/11/2025 7:34 PM Rylee Cook RNSkin TempWarm;Dry 03/24/2025 7:34 PM Rylee Cook RNCosignI Reviewed & Agree With The Skin and Wound Ajubzewneg93/06/2025 1:45 AM Zenia Smiley, RNBruising location Arm;Hand;Qowscoe1103/24/2025 8:45 AM ESTWade, Rosana, RNBruising Orientation Bilateral;Left03/24/2025 8:45 AM ESTWade, Rosana, RNExcoriation Location Adugkuuz54/11/2025 8:45 AM ESTWade, Rosana, RNExcoriation OrientationBilateral 03/24/2025 8:45 AM ESTWade, Rosana, RNFlaking BjzhwvzrRtau98/11/2025 8:45 AM ESTWade, Rosana, RNFlaking VousprykdrbYjgfcogif06/11/2025 8:45 AM ESTWade, Rosana, RNScaling LocationFoot;Leg03/24/2025 8:45 AM ESTWade, Rosana, RNScaling BgaucwdbmviThnalvdeg91/11/2025 8:45 AM ESTWade, Rosana, RNSwelling Location Huespam6703/24/2025 8:45 AM ESTWade, Rosana, RNSwelling OrientationBilateral 03/23/2025 7:27 AM Parrish Gresham RNIntegumentary (WDL)X105/25/2024 7:34 PM Rylee Cook RN * Patient medications returnedAnswerDate of AssessmentAuthorNone to return 03/25/2025 1:26 AM Rylee Cook RN * Adult Non-Verbal Pain ScoreQuestionAnswerDate of AssessmentAuthorFacial Bbwalrqqdf595/03/2025 8:00 AM En Li RNActivity/Movement0 03/16/2025 8:00 AM En Li RNGuarding0105/17/2024 8:00 AM En Dempsey RNVital Kmerh57705/17/2024 8:00 AM En Li RN Respiratory Khvkqrof748/03/2025 8:00 AM En Li RNAdu Nonverbal Pain Kaexj49605/17/2024 8:00 AM En Li RN * Dominant HandQuestionAnswerDate of AssessmentAuthorWhich is your dominant hand?Right03/19/2025 11:00 AM Mahsa Field RN * Pain ScoreAnswerDate of FywgnojrqxTgvwea045/11/2025 10:25 PM Rylee Cook RN * Confusion Assessment Method (CAM)QuestionAnswerDate of AssessmentAuthorAcute OnadlFw7703/24/2025 7:34 PM Rylee Cook, RNFluctuating IgitpvNm49/11/2025 8:45 AM Rosana Zafar RNInattentionNo03/24/2025 8:45 AM Rosana Zafar RN Disorganized BsvqapcaCc17/11/2025 8:45 AM Rosana Zafar RNRate Patient's Level of ConsciousnessAlert (Normal), No03/24/2025 8:45 AM Rosana Zafar RN Delirium UhckiyvXl18/11/2025 8:45 AM Rosana Zafar RN * Confusion Assessment Method-ICU (CAM-ICU)QuestionAnswerDate of Assessment AuthorFeature 1: Acute Onset or Fluctuating KyxivlWfmjbakt20/03/2025 4:00 PM En Li RNFeature 2: GqwfutdloshPqmkqlho45/03/2025 4:00 PM En Dempsey RN * Feature 3: Altered Level of ConsciousnessAnswerDate of AssessmentAuthor Ifcwcbig62/07/2025 6:03 AM Britni Pastor RN * Fall Risk ScaleQuestionAnswerDate of AssessmentAuthorFall Risk ScaleMorse Fall Risk Scale03/24/2025 7:34 PM Rylee Cook RN * Urine Output/AssessmentQuestionAnswerDate of NwuiagliobLtouwoAifrv710 03/24/2025 10:07 PM Rylee Cook RNBladder Scan Volume Pre-Void or Cath (mL)6903/19/2025 1:10 PM Mahsa Field RNBladder Scan Volume Post-Void (mL) 4:00 PM Mahsa Field RNUrine EntoyUextz51/11/2025 10:07 PM EST Rylee Baez RNUrine WelvbbvvyhCswhm20/11/2025 10:07 PM Rylee Cook RN * Neuro ShortQuestionAnswerDate of AssessmentAuthorLevel of ConsciousnessAlert 03/24/2025 3:23 PM Jb Martines RNNeuro ([facility])X105/25/2024 3:23 PM EST Jb Reddy RN * Respiratory ShortQuestionAnswerDate of AssessmentAuthorR Breath SoundsClear 03/24/2025 3:23 PM Jb Martines RNL Breath RkbghfUkoqn80/11/2025 3:23 PM Jb Martines RNCoughNone105/25/2024 1:16 PM Summer Deal RN Respiratory ([facility])X105/25/2024 3:23 PM Jb Martines RN * Cardiac ShortQuestionAnswerDate of AssessmentAuthorCardiac RegularityRegular 03/24/2025 3:23 PM Jb Martines RNCardiac ([facility])WDL105/25/2024 3:23 PM Jb Wolf RN * Peripheral Vascular ShortQuestionAnswerDate of AssessmentAuthorGeneralized LbubrPpoy90/11/2025 3:23 PM Jb Martines RNCyanosisNone105/25/2024 3:23 PM Jb Martines RNPeripheral Vascular (WDL)WDL105/25/2024 3:23 PM Jb Martines RN * Integumentary ShortQuestionAnswerDate of AssessmentAuthorSkin Integrity Xrrkfcke80/11/2025 3:23 PM Jb Martines RNSkin Locationgeneralized 03/24/2025 3:23 PM Jb Martines RNIntegumentary (WD)WDL105/25/2024 3:23 PM Jb Martines RN * Tattoos/PiercingsQuestionAnswerDate of AssessmentAuthorPiercings RemainingNo 03/19/2025 1:45 AM Flori Hoff RNDoes patient have tattoos?No03/19/2025 1:45 AM Flori Hoff RN * PsychosocialQuestionAnswerDate of AssessmentAuthorPsychosocial (WDL)WDL 03/24/2025 3:23 PM Jb Martines RN * Alcohol/Subtance Abuse AssessmentQuestionAnswerDate of AssessmentAuthor Alcohol/Substance AssessmentNo - Patient Cydxfp0503/19/2025 3:46 PM Luh Galicia RN * Patient/Caregiver GoalsQuestionAnswerDate of AssessmentAuthoHolmes Regional Medical Centered [facility] ([employer])03/19/2025 3:47 PM Luh Galicia RN Patient/Caregiver GoalsSkilled Nursing Care03/19/2025 3:47 PM Luh Galicia RN * Community Provider ReferralQuestionAnswerDate of AssessmentAuthorCommunity Provider JsubuymeRhkd06/06/2025 3:47 PM Luh Galicia RN * Readmission EvaluationQuestionAnswerDate of AssessmentAuthorIs this admission a 30-day gwdjsusapbgPh70/06/2025 3:47 PM Luh Galicia RN * [place] Suicide BehaviorQuestionAnswerDate of AssessmentAuthor6. Have you ever done anything, started to do anything, or prepared to do anything to end your life?No03/16/2025 1:58 PM Alla Viramontes RN * Suicidal Ideation (Last Month)QuestionAnswerDate of AssessmentAuthor1. In the last month have you wished you were or wished you could go to sleep and not wake up?No03/16/2025 1:58 PM Alla Viramontes RN2. In the last month have you actually had any thoughts of killing yourself?No03/16/2025 1:58 PM Alla Viramontes RNAble to assess?Yes03/16/2025 1:58 PM Alla Samuel RN * Oxygen TherapyQuestionAnswerDate of AssessmentAuthorPulse Oximetry Type Mgempgjfqr08/11/2025 3:23 PM Jb Martines RN * ADL AssessmentQuestionAnswerDate of AssessmentAuthorLevel of Hygiene AssistanceComplete ecvkvm8203/24/2025 7:34 PM Rylee Cook RNLevel of Feeding AssistanceNeeds set up;Needs fzerqz8203/24/2025 7:34 PM Rylee Cook RN * AbdominalQuestionAnswerDate of AssessmentAuthorGastrointestinal (WDL)X 03/16/2025 5:35 AM Brandi Chang RN * CardiovascularQuestionAnswerDate of AssessmentAuthorHeart SoundsMurmur 03/16/2025 5:35 AM Brandi Chang RNCardiovascular (WDL)X105/17/2024 5:35 AM Brandi Chang RN * GenitourinaryQuestionAnswerDate of AssessmentAuthorGenitourinary (WDL)X 03/16/2025 5:35 AM Brandi Chang RN * Vitals TimerQuestionAnswerDate of AssessmentAuthorRestart Vitals TimerYes 03/24/2025 8:08 AM Dorcas Renteria CNA * Respiratory (WDL)AnswerDate of EqgrjefkwtPftgniQSR51/03/2025 5:35 AM Brandi Chang RN * CardiovascularQuestionAnswerDate of AssessmentAuthorCardiovascular (WDL)X 03/24/2025 7:34 PM Rylee Cook RNCardiac VytmyxrfhrIwvxgld96/11/2025 8:45 AM Rosana Zafar RNBedside CeubmljqmtGbqokcylv76/11/2025 8:45 AM Rosana Hernandez RNMonitoring XygeblxmubtuvRrzsrnzzju57/11/2025 8:45 AM Rosana Zafar RNMonitoring AlarmsAudible;Alarms Set and Jekvsoq9803/24/2025 8:45 AM Rosana Hernandez RNCapillary RefillLess than/equal to 3 seconds (All extremities) 03/24/2025 7:34 PM Rylee Cook RNPulsesR dorsalis pedis/pedal;L dorsalis pedis/pedal;R radial;L xfckiq2503/24/2025 7:34 PM Rylee Cook RNHeart SoundsS1, S203/24/2025 7:34 PM Rylee Cook RNTelemetry Box PnebusY321 03/21/2025 3:29 PM Mahsa Field RNEdemaScrotal105/25/2024 7:34 PM Rylee Casas RNPVS Additional CzjajwrpuviQc58/06/2025 1:45 AM Flori Hoff RNJugular Venous Distention (JVD)None03/24/2025 7:34 PM Rylee Cook RNCardiac BmoisgowAygu25/11/2025 7:34 PM Rylee Cook RN * Discharge PlanningQuestionAnswerDate of AssessmentAuthorLiving Arrangements Nursing Home03/19/2025 3:47 PM Luh Galicia RNAssistance Neededad 03/19/2025 3:47 PM Luh Galicia RNType [facility]25 3:47 PM [facility]/19/2025 3:47 PM [facility] ZdsactwxPb11/06/2025 3:47 PM Luh Galicia, RN * TB ScreeningQuestionAnswerDate of AssessmentAuthorPatient has prolonged cough? Mpxsxkl0403/16/2025 5:34 AM Nory Hayes RNPatient has bloody cough?Unknown 03/16/2025 5:34 AM Nory Hayes RNPatient has fever?Orvxmfo3903/16/2025 5:34 AM Nory Hayes RNPatient has night sweats?Zqdmehq5003/16/2025 5:34 AM Nory Hooker RNPatient has weight loss?Bbodkzd9803/16/2025 5:34 AM Nory Hayes RNPatient has positive PPD?Mfvrgfi0703/16/2025 5:34 AM Nory Hayes RN * Critical ResultsQuestionAnswerDate of AssessmentAuthorProvider Namedustin tmfiaex49/09/2025 6:11 AM Britni Pastor RNCritical Results Commenthgb 6.8105/23/2024 6:11 AM Britni Pastor RNMethod of CommunicationCall 03/22/2025 6:11 AM Britni Pastor RN * Reason for CommunicationQuestionAnswerDate of AssessmentAuthorReason for UspvqqsgfeqykUpbvqjb03/11/2025 6:53 PM Rosana Zafar RN * Evaluate PatientQuestionAnswerDate of AssessmentAuthorEvaluate Patient Comment Pt temp 100.7, had tylenol an hour prior, SBP 80s/MAP 50s, levo restarted 03/18/2025 12:00 AM Steffi Hayes RN * OrdersQuestionAnswerDate of AssessmentAuthorOrders Commenthmg 7.2, drop from 8.0. recheck hmg in a few hours03/18/2025 3:45 AM Georgia Hargrove RN * Other CommunicationQuestionAnswerDate of AssessmentAuthorOther Communication CommentmaNavas aware of low urine ojoadd0603/16/2025 11:00 PM Georgia Hargrove RN * Blood Return Present?AnswerDate of FjzfiravkeBiexwwTbd14/11/2025 1:30 PM Summer Lizama RN * [place] Suicide Risk LevelAnswerDate of AssessmentAuthorNot at Suicide Risk 03/16/2025 1:58 PM Alla Viramontes RN * Penetration/Aspiration ScaleQuestionAnswerDate of AssessmentAuthorLevel 0 Thin 8105/25/2024 10:52 AM Magaly Aguila CCC-SLPLevel 2 Mildly Thick8 03/24/2025 10:52 AM Magaly Aguila CCC-MILKALevel 3 Moderately Thick1 03/24/2025 10:52 AM Magaly Aguila CCC-SLPLevel 4 Trqtcq375 10:52 AM Magaly Aguila CCC-SLPLevel 6 Soft & Bite-Ekpif812 10:52 AM Magaly Aguila CCC-SLPRegular 10:52 AM Magaly Sanderson CCC-SLPPenetration/Aspiration Scale EofrzsxxvW60/11/2025 10:52 AM Magaly Aguila CCC-SLP * HandoffQuestionAnswerDate of AssessmentAuthorHandoff Report:Given to Next Shift RN03/24/2025 6:55 PM Rosana Zafar RNPerson Handoff Given To / Received FtxcZwtco09/11/2025 6:55 PM Rosana Zafar RNHandoff Comments:report 03/23/2025 7:09 PM Parrish Gresham RN * VisitQuestionAnswerDate of AssessmentAuthorAllergies Marked As Reviewed Isnfhysa29/11/2025 10:52 AM Magaly Aguila CCC-SLPFood or Dye TbkzoorfmDc63/11/2025 10:52 AM Magaly Aguila CCC-SLP * Treatment PlanQuestionAnswerDate of AssessmentAuthorDurationUntil discharge 03/24/2025 10:52 AM Magaly Aguila CCC-SLPFrequency2-3days/week 03/24/2025 10:52 AM Magaly Aguila CCC-SLP * Discharge Recommendations for Safe Patient TransitionQuestionAnswerDate of AssessmentAuthorCurrent Impairments Informing Therapy RecommendationSwallowing 03/19/2025 10:12 AM Tatiana Leon CCC-SLPSLP Therapy Recommendations Continue ST crhumhak09/11/2025 10:52 AM Magaly Aguila CCC-SLP * VitalsQuestionAnswerDate of DqqivddabsZksrbvKC448/8203/24/2025 10:06 PM Rylee Casas RNPulse7703/24/2025 10:06 PM Rylee Cook RNHeight67 03/22/2025 10:11 AM Elsa Barboza RN * ICP/PressureQuestionAnswerDate of AssessmentAuthorMAP (mmHg)8103/24/2025 7:34 PM Rylee Cook RN * ActivityQuestionAnswerDate of AssessmentAuthorActivity PerformedResting in bed 03/24/2025 7:34 PM Rylee Cook RNActivity ResponseTolerated well 03/23/2025 7:41 PM Rylee Cook RNRange of MotionActive;All extremities 03/23/2025 7:41 PM Rylee Cook RNToileting AssistanceAssist with urinal 03/23/2025 7:27 AM Parrish Gresham RNRepositionedSemi Merritt's;Lying left side;Pillow yttlnos7303/25/2025 12:30 AM Rylee Cook RNTransport MethodBed;Snbwxbqcv54/11/2025 8:45 AM Rosana Zafar RN * Pulmonary MechanicsQuestionAnswerDate of VogprjdcibKntjwnNidb3400/11/2025 9:09 PM Jozef Jackson RCP * BEE (kcal)AnswerDate of IylwamptcdXfrwhf170817/09/2025 10:11 AM Elsa Barboza RN * Vital SignsQuestionAnswerDate of NkhxpzrtiqDymxejQuX001164/11/2025 9:09 PM Jozef Terrazas RCPHeart Rate SourcePulse Ox03/24/2025 9:02 PM Jozef Jackson RCPPatient PositionSemi-tvoysvc9003/24/2025 9:02 PM Jozef Jackson RCP * Vital SignsQuestionAnswerDate of AssessmentAuthorIs this an Orthostatic BP?No 03/24/2025 3:23 PM Jb Martines RNOrthostatic LprnpzudVgkk31/11/2025 3:23 PM Jb Martines RN * Patient ObservationQuestionAnswerDate of AnrolgdjtcLtqdzcGxeeka6019.36 03/24/2025 3:23 PM Summer Deal RN * VitalsQuestionAnswerDate of XqjyjmdiclRmrfyaSzxc12. 7:34 PM Rylee Casas RNTemp kzkJxyf1903/24/2025 7:34 PM Rylee Cook RNBP LocationLeft arm03/24/2025 7:34 PM Rylee Cook RNBP MethodAutomatic 03/24/2025 7:34 PM Rylee Cook RN * BSA (Calculated - sq m)AnswerDate of AssessmentAuthor1.9703/22/2025 10:11 AM Elsa Barboza RN * BMI (Calculated)AnswerDate of YzbuuquxhaIijujb17.312 10:11 AM Elsa Jeronimo RN * Activities of Daily LivingQuestionAnswerDate of AssessmentAuthorFunctional StatusTotally fsgbifdsk81/06/2025 3:46 PM Luh Galicia RNAmbulationMaximum vbyipwnrmb56/06/2025 3:46 PM Luh Galicia RNVIJfzyydaiLorsaycn31/06/2025 3:46 PM Luh Galicia RNDressingNeeds wlgiciymdf82/06/2025 3:46 PM Luh Shelby RNGroomingNeeds /06/2025 3:46 PM Luh Galicia RN FeedingNeeds ylbkirsqvf07/06/2025 3:46 PM Luh Galicia RNBathingNeeds ntfomunjlu00/06/2025 3:46 PM Luh Galicia RNToiletingNeeds assistance 03/19/2025 3:46 PM Luh Galicia RN * Safe EnvironmentQuestionAnswerDate of AssessmentAuthorCall Sher Within Reach Yes03/24/2025 10:00 PM Rylee Cook RNBed In Lowest JmnxsbyiSnq75/11/2025 10:00 PM Rylee Cook RNBed Wheels CdmmhaWzr67/11/2025 10:00 PM Rylee Casas RN * PrescriptionQuestionAnswerDate of AssessmentAuthorEstimated Dry Weight (kg) 2821.8903/21/2025 11:44 AM Shama Victor LPN * Height and WeightQuestionAnswerDate of AssessmentAuthorWeight MethodBed scale 03/24/2025 3:23 PM Jb Martines RN * Skin Breakdown PreventionQuestionAnswerDate of AssessmentAuthorBed PositionHOB 45105/25/2024 8:45 AM Rosana Zafar RNExtremities ElevatedBilateral heels 03/24/2025 8:45 AM Rosana Zafar RNProtective DeviceWaffle boot - bilateral 03/24/2025 7:34 PM Rylee Cook RN * VisitQuestionAnswerDate of AssessmentAuthorOT Type of VisitDischarge from Therapy;Patient gsutpwz5803/23/2025 9:30 AM Regan Reddy, OTR/LReason For Medical DeferralVitals outside safe swjttluycm38/09/2025 7:33 AM Regan Reddy, OTR/LLab ResultsLow geireiyobh13/09/2025 7:33 AM Regan Reddy, OTR/LPT Type of VisitDischarge from Urzsjku2003/23/2025 9:31 AM Starr Rivas, PTRN NjjmmoqrlhfheYta25/10/2025 9:31 AM Starr Rivas, PTMedical Record DybnofsqUll60/10/2025 9:31 AM Starr Rivas, PT * Weight in (lb) to have BMI = 25AnswerDate of OerogazzlkCupnus541. 10:11 AM Elsa Barboza RN * Dominant HandQuestionAnswerDate of AssessmentAuthorWhich is your dominant hand?Right03/19/2025 11:00 AM Mahsa Field RN documented as of this encounter Mental Status * VitalsQuestionAnswerEntry PdnnCaioasHY576/8203/24/2025 10:06 PM Rylee Cook RNPulse7703/24/2025 10:06 PM Rylee Cook RN * HEENTQuestionAnswerEntry DateAuthorHEENT (WDL)X105/25/2024 7:34 PM Rylee Cook RNR YqhUmyepq69/11/2025 7:34 PM Rylee Cook RNL EyeIntact 03/24/2025 7:34 PM Rylee Cook RNR EarImpaired Hearing;Forzdb4303/23/2025 7:27 AM ESTRoxas, Parrish Eloy, RNL EarIntact;Impaired Cxdbztb6803/23/2025 7:27 AM Parrish Gresham RNNoseIntact03/23/2025 7:27 AM Parrish Gresham RNNasal Drainage ColorUnable to gauylq8903/23/2025 7:27 AM Parrish Gresham RNNasal Drainage ConsistencyUnable to nkckeq8103/23/2025 7:27 AM Parrish Gresham RNThroatIntact;Dry03/23/2025 7:27 AM Parrish Gresham YGLzodxrOcs29/11/2025 7:34 PM Rylee Cook RNVoiceHoarse 03/23/2025 7:27 AM Parrish Grehsam RNMucous Membrane(s)Intact;Dry 03/24/2025 7:34 PM Rylee Cook RNTeethMissing teeth03/24/2025 7:34 PM Rylee Cook RNHead and KihgYyyprbtdyts77/11/2025 7:34 PM Rylee Cook RNNeckSymmetrical03/23/2025 7:27 AM Parrish Gresham RNLips Dry;Ldyaqkxlazv16/11/2025 7:34 PM Rylee Cook RN * ICP/PressureQuestionAnswerEntry DateAuthorMAP (mmHg)8103/24/2025 7:34 PM Rylee Casas RN * ActivityQuestionAnswerEntry DateAuthorTransport MethodBed;Ypsklzeen39/11/2025 8:45 AM Rosana Zafar RN * Pulmonary MechanicsQuestionAnswerEntry QmsqYoydmoUopz4073/11/2025 9:09 PM Jozef Terrazas RCP * Vital SignsQuestionAnswerEntry JaddZhdlgmYdR794040/11/2025 9:09 PM Jozef Jackson RCPO2 DeviceNone (Room air)03/24/2025 9:02 PM Jozef Jackson RCP Heart Rate SourcePulse Ox03/24/2025 9:02 PM Jozef Jackson RCPFiO2 (%)28 03/18/2025 8:52 PM Ludwig Kimberlykurt Perkins, RCPPatient PositionSemi-fowlers 03/24/2025 9:02 PM Jozef Jackson RCP * [place] Coma ScaleQuestionAnswerEntry DateAuthorEye Byleect929/11/2025 7:34 PM Rylee Cook RNBest Motor Fosqdkgw124/11/2025 7:34 PM Rylee Cook RNBest Verbal Cwjdgipp001/11/2025 7:34 PM Rylee Cook RNGlasgow Coma Scale Pzlnq3353/11/2025 7:34 PM Rylee Cook RN * Vital SignsQuestionAnswerEntry DateAuthorO2 Flow Rate (L/min) 3:23 PM Jb Martines RNIs this an Orthostatic BP?No03/24/2025 3:23 PM Jb Wolf RNOrthostatic QrlvhwznOxvf14/11/2025 3:23 PM Jb Martines RN * Pain 2QuestionAnswerEntry DateAuthorObserved EawwyaraOofdyofg88/11/2025 10:25 PM Rylee Cook RN * VitalsQuestionAnswerEntry BwglHrhiyuPiht76. 7:34 PM Rylee Cook RNTemp sjmMdei6803/24/2025 7:34 PM Rylee Cook RNBP LocationLeft arm03/24/2025 7:34 PM Rylee Cook RNBP VxhwerJpxtdcuvk68/11/2025 7:34 PM Rylee Cook RN * NeurologicalQuestionAnswerEntry DateAuthorOrientation LevelOriented to person;Oriented to place;Oriented to age;Disoriented to situation;Oriented to time03/24/2025 7:34 PM Rylee Cook RNCognitionFollows commands;Poor judgement;Poor safety affkbiqrv53/11/2025 7:34 PM Rylee Cook RNSpeech Owkqhmn13/11/2025 7:34 PM Rylee Cook RNLUE Motor ResponseResponds to iipcgrbb32/11/2025 7:34 PM Rylee Cook, RNLUE Sensation Numbness;Tingling;Gulkgnuk73/11/2025 7:34 PM Rylee Cook, RNLLE Motor ResponseResponds to ugfrmitn54/11/2025 7:34 PM Rylee Cook, RNLLE SensationNumbness;Tingling;Mahpicpq63/11/2025 7:34 PM Rylee Cook, RNRUE Motor ResponseResponds to ukyimcec46/11/2025 7:34 PM Rylee Cook, RNRUE SensationNumbness;Tingling;Uutreesx29/11/2025 7:34 PM Rylee Cook, RNRLE Motor ResponseResponds to /11/2025 7:34 PM Rylee Cook, RNRLE SensationNumbness;Tingling;Jzhksqzz22/11/2025 7:34 PM Rylee Cook RN Neuro (WDL)X105/25/2024 7:34 PM Rylee Cook, RNSwallowDifficulty pogvmciqus41/11/2025 7:34 PM Rylee Cook RNRLE Motor StrengthNormal power03/24/2025 7:34 PM Rylee Cook, RNLLE Motor StrengthNormal power 03/24/2025 7:34 PM Rylee Cook, RNL Hand AbptgDtkgjacq32/11/2025 7:34 PM Rylee Cook RNR Hand QhlqnPiczmgfl78/11/2025 7:34 PM Rylee Cook, RNRUE Motor StrengthNormal power03/24/2025 7:34 PM Rylee Cook, RNLUE Motor StrengthNormal power03/24/2025 7:34 PM Rylee Cook RNBalanceUnable to szpapp3303/24/2025 7:34 PM Rylee Cook RNPupil MzjkxhawtlZvu20/11/2025 7:34 PM Rylee Cook RNR Pupil Size (mm) 7:34 PM Rylee Cook RNR Pupil UdhdhKacfg20/11/2025 7:34 PM ESTKiptoo, Rylee, RNR Pupil KwlxysleKtrrc09/11/2025 7:34 PM Rylee Cook, RNL Pupil Size (mm)2 03/24/2025 7:34 PM Rylee Cook, RNL Pupil MvyyoOytxw14/11/2025 7:34 PM yRlee Cook, RNL Pupil MmexfudnGotnb74/11/2025 7:34 PM Rylee Cook, RNR Foot YmvevxlcoegcBetr08/11/2025 7:34 PM Rylee Cook, RNL Foot EuonzkssszapKyou83/11/2025 7:34 PM Rylee Cook, RNR Foot Plantar Flexion Weak03/24/2025 7:34 PM Rylee Cook, RNL Foot Plantar FlexionWeak 03/24/2025 7:34 PM Rylee Cook RNTongue WydcivdolPibt68/11/2025 7:34 PM Rylee Cook RNNeuro VbjcasmfYazo42/11/2025 7:34 PM Rylee Cook, RN Relieved byListening and elndgblzsq45/06/2025 4:23 PM Mahsa Field RNNeuro Additional ObganmzeoroXn62/06/2025 1:45 AM Flori Hoff RNMotor Function/Sensation AssessmentGrip;Dorsiflexion;Plantar flexion;Motor response;Motor strength;Gajtmbadz13/11/2025 7:34 PM Rylee Cook, RNFacial GfjyarxsYywzkykaunb93/11/2025 7:34 PM Rylee Cook RNRichmond Agitation Sedation Scale (RASS) 6:03 AM Britni Pastor RN * RespiratoryQuestionAnswerEntry DateAuthorRespiratory (WDL)X105/25/2024 7:34 PM Rylee Cook RNVentilator VrdnegwJt36/10/2025 7:27 AM Parrish Gresham, MISTYRespiratory Additional JdydixamvkcIr64/10/2025 7:27 AM Parrish Gresham, MISTY * Pacemaker/ICDQuestionAnswerEntry DateAuthorPacemaker/GSOIiivuhzfz32/11/2025 7:34 PM Rylee Cook RNCardiac RhythmNormal sinus mfnjey3003/24/2025 8:45 AM Rosana Zafar RNEctopyPremature ventricular vplpbuhbhsni96/10/2025 7:27 AM Parrish Gresham, RNEctopy HgklalwvcRoydtnfnqx50/10/2025 7:27 AM Parrish Smith, RNPacemaker QdurYrnmrhnoo27/11/2025 7:34 PM Rylee Cook, RN * Bowel SoundsQuestionAnswerEntry DateAuthorRUQ Bowel JflqgnJwwvbc56/11/2025 7:34 PM Rylee Cook, RNRLQ Bowel TeqrauZrzhlk60/11/2025 7:34 PM Rylee Casas, RNLUQ Bowel DodnucEnxpsp25/11/2025 7:34 PM Rylee Cook RN LLQ Bowel SabeklYiipvw54/11/2025 7:34 PM Rylee Cook RN * GastrointestinalQuestionAnswerEntry DateAuthorLast BM Xcfh4327975/11/2025 7:34 PM Rylee Cook, RNPassing VqroumRpp96/11/2025 8:45 AM Rosana Zafar RN Gastrointestinal (WDL)WDL105/25/2024 7:34 PM Rylee Cook, RNAbdomen AssessmentSoft;Pediglgevcup48/11/2025 7:34 PM Rylee Cook, RNAppears NourishedWell Tuckeeldv06/11/2025 7:34 PM Rylee Cook RNGI SymptomsNone 03/24/2025 7:34 PM Rylee Cook RNGastrointestinal Additional Assessments No03/24/2025 7:34 PM Rylee Cook RN * EdemaQuestionAnswerEntry HvnaIqfxymLyfojmy930/11/2025 7:34 PM Rylee Cook RNRLE Edema+ 7:27 AM Parrish Gresham, RNLLE Edema+1 03/23/2025 7:27 AM Parrish Gresham, RN * RUE Peripheral Vascular AssessmentQuestionAnswerEntry DateAuthorR Radial Pulse + 7:34 PM Rylee Cook RN * LUE Peripheral Vascular AssessmentQuestionAnswerEntry DateAuthorL Radial Pulse + 7:34 PM Ryele Cook RN * RLE Peripheral Vascular AssessmentQuestionAnswerEntry DateAuthorR Posterior Tibial Pulse+ 8:00 PM Georgia Hargrove, RNR Dorsalis Pedis/Pedal Pulse+ 7:34 PM Rylee Cook RN * LLE Peripheral Vascular AssessmentQuestionAnswerEntry DateAuthorL Posterior Tibial Pulse+ 9:30 AM Rosana Zafar RNL Dorsalis Pedis/Pedal Pulse+ 7:34 PM Rylee Cook RN * MusculoskeletalQuestionAnswerEntry DateAuthorRUEFull gnidrmib99/11/2025 7:34 PM Rylee Cook RNRLEFull movement;Mzcixjkf83/11/2025 7:34 PM Rylee Cook RNLUEFull pxlsriiq55/11/2025 7:34 PM Rylee Cook RNLLEFull movement;Sxcecugv79/11/2025 7:34 PM Rylee Cook RNMusculoskeletal (WDL)X 03/24/2025 7:34 PM Rylee Cook RNMusculoskeletal Additional Assessments No03/23/2025 7:27 AM Parrish Gresham RN * Urine AssessmentQuestionAnswerEntry DateAuthorUrinary IncontinenceYes 03/24/2025 8:45 AM Rosana Zafar RN * Anus/RectumQuestionAnswerEntry DateAuthorAnus/Rectum (WDL)WDL105/25/2024 7:34 PM Rylee Cook RN * PsychosocialQuestionAnswerEntry DateAuthorPatient Behaviors/Mood Anxious;Xqnpuwwkw32/11/2025 7:34 PM Rylee Cook RNNeeds ExpressedDenies 03/24/2025 7:34 PM ESTKiptoo, Rylee, RNPsychosocial (WDL)X105/25/2024 7:34 PM Rylee Cook, RNPerson/Family VisitationNo visitors ntklaqv5003/24/2025 7:34 PM Rylee Cook RNPsychosocial Additional AqmgoiaiavrBt05/11/2025 7:34 PM Rylee Cook, RNAbility to Express FeelingsAble to mhzdhcm7603/24/2025 7:34 PM Rylee Cook, RNAbility to Express NeedsAble to mvgmllj4103/24/2025 7:34 PM Rylee Cook, RNAbility to Express ThoughtsAble to express 03/24/2025 7:34 PM Rylee Cook, RNAbility to Understand OthersSometimes pslatcslekb59/11/2025 7:34 PM Rylee Cook RN * Jus ScaleQuestionAnswerEntry DateAuthorSensory Lhfjwahodid938/11/2025 7:34 PM Rylee Cook, ZJTcjumxya256/11/2025 7:34 PM Rylee Cook, RN Bxgeknrl112/11/2025 7:34 PM Rylee Cook, EUDdqzcalf467/11/2025 7:34 PM Rylee Cook, LXDfdxvoxzm465/11/2025 7:34 PM Rylee Cook, RNFriction and Fqlug37405/25/2024 7:34 PM Rylee Cook RNBraden Scale Score16 03/24/2025 7:34 PM Rylee Cook RN * Charting TypeQuestionAnswerEntry DateAuthorCharting TypeShift assessment 03/24/2025 7:34 PM Rylee Cook RN * Stool AssessmentQuestionAnswerEntry DateAuthorStool WupqlIfkjj46/10/2025 7:27 AM Parrish Gresham, RNStool NbcjknVrgaio27/10/2025 7:27 AM Parrish Gresham, RNBowel VmbdurwokypfKru41/10/2025 7:27 AM Parrish Gresham, RN * GenitourinaryQuestionAnswerEntry DateAuthorMale GenitaliaIntact;Enlarged ntmkwxp2103/24/2025 8:45 AM Rosana Zafar RNGenitourinary (WDL)X105/25/2024 8:45 AM Rosana Zafar RNGenitourinary SymptomsIncontinence (bladder);Diminished urine vxeagmegvt10/11/2025 8:45 AM Rosana Zafar RN * Baseline AssessmentQuestionAnswerEntry AzygPntlsoFrzxekayoYbrdgtdyjr47/11/2025 10:52 AM Magaly Aguila CCC-PROPRIETARY TRADER * Oral/MotorQuestionAnswerEntry DateAuthorLabial NNWZlfeemt95/04/2025 11:05 AM Trena Headley CCC-SLPLabial ZyjydhxeIchkjbd54/04/2025 11:05 AM Trena Headley CCC-SLPLingual BMOPlcndcg86/04/2025 11:05 AM Trena Headley CCC-PROPRIETARY TRADER Lingual BbsmasehZldxvqr42/04/2025 11:05 AM Trena Headley CCC-SLPWetMild 03/17/2025 11:05 AM Trena Headley CCC-OZTSxjnRgux44/04/2025 11:05 AM Trena Olivas CCC-SLPVocal KluiniqJ84/04/2025 11:05 AM Trena Headley CCC-SLPVocal EbfxfqmggWVF71/04/2025 11:05 AM Trena Headley CCC-SLPOverall Oral/Motor CcameoW09/04/2025 11:05 AM Trena Headley CCC-SLPLabial BxpgtqivjbiiSdxucul22/04/2025 11:05 AM Trena Headley CCC-SLPLingual IwwhtqbfyrwvEeuzxzy80/04/2025 11:05 AM Trena Headley [facility]-PROPRIETARY TRADER * Provider CommunicationQuestionAnswerEntry DateAuthorProvider RoleConsulting vlghdkdai04/11/2025 3:00 PM Summer Deal RNProvider NameDr. Maritza Sharma03/24/2025 3:00 PM Summer Deal RNMethod of XitvttusbaqxgYbsm44/11/2025 3:00 PM Summer Deal RNResponseSee brpxuu6703/24/2025 3:00 PM Summer Deal RN * Neuro Additional AssessmentsAnswerEntry NjipKfnrswBCL71/03/2025 5:35 AM Brandi Taveras RN * HeadacheQuestionAnswerEntry DateAuthorComplaint of MrnuokyuAv33/11/2025 7:34 PM Rylee Cook RN * NeurologicalQuestionAnswerEntry DateAuthorL Pupil ConrzhzjAcjeh00/03/2025 5:35 AM Brandi Chang RNL Pupil Size (mm) 5:35 AM Brandi Chang RN R Pupil EfigualqMyaad33/03/2025 5:35 AM Brandi Chang RNR Pupil Size (mm)3 03/16/2025 5:35 AM Brandi Chang RNLevel of ConsciousnessResponds to Pain 03/16/2025 5:35 AM Brandi Chang RNR Pupil UjmibRrsvr91/03/2025 5:35 AM Brandi Taveras RNL Pupil WbzkgLrujr69/03/2025 5:35 AM Brandi Chang RNNeuro (WDL)X105/17/2024 5:35 AM Brandi Chang RN * Time-OutQuestionAnswerEntry DateAuthorCorrect JkzeisuI19/11/2025 1:16 PM Summer Lizama RNCorrect Access CvloVhy26/11/2025 1:16 PM Summer Lizama RNCorrect Treatment AdceazIuf21/11/2025 1:16 PM Summer Lizama RNConsents OmequfwgCyy65/11/2025 1:16 PM Summer Deal RNRad Studies AvailableN/A105/19/2024 8:17 AM Jelena De Luna RNLab Results JjpeorfucEjy38/11/2025 1:16 PM Summer Deal RN Safety Precautions JqscictoNfb65/11/2025 1:16 PM Summer Deal RN * RN: Observer/Environment EvaluationQuestionAnswerEntry DateAuthorObserverNot vmgntaylb86/11/2025 7:34 PM Rylee Cook RN * Respiratory AssessmentQuestionAnswerEntry DateAuthorBilateral Breath Sounds Clear03/24/2025 9:09 PM Jozef Jackson RCPRespiratory PatternRegular 03/24/2025 9:09 PM Jozef Jackson RCPChest AssessmentChest expansion vkbdzyacgmv41/11/2025 9:09 PM Jozef Jackson RCPLevel of Consciousness Alert03/24/2025 9:09 PM Jozef Jackson RCP * Pain AssessmentQuestionAnswerEntry DateAuthorPain LocationGeneralized 03/24/2025 10:25 PM Rylee Cook RNPain Orientation Right;Left;Anterior;Clzetwomx84/10/2025 3:42 PM Parrish Gresham RNPain Intervention(s)Medication (See MAR)03/24/2025 10:25 PM Rylee Cook RN Pain Radiating TowardsN/A105/24/2024 3:42 PM Parrish Gresham RNPain DescriptorsAching;Yucoogiiws59/11/2025 10:25 PM Rylee Cook RNPain QuhdskoxNiqeibzqiygy89/11/2025 10:25 PM Rylee Cook RNPatient's Stated Acceptable Pain LevelNo pain03/24/2025 10:25 PM Rylee Cook RNResponse to InterventionsPain improved;Quiet03/23/2025 3:42 PM Parrish Gresham RNMultiple Pain CvbeiHv3103/23/2025 3:42 PM Parrish Gresham RNSelf Entered Pain Ktqxp82305/24/2024 4:31 AM Sally Larkin RNPain Assessment No/denies pain03/24/2025 11:25 PM Rylee Cook RN * FLACC (Face, Legs, Activity, Crying, Consolability)QuestionAnswerEntry Date AuthorPain Rating: FLACC (Rest) - Gofw07905/18/2024 12:00 AM Georgia Hargrove RNPain Rating: FLACC (Rest) - Zxzh669 12:00 AM Georgia Hargrove RN Pain Rating: FLACC (Rest) - Dbjcrhqg982/04/2025 12:00 AM Georgia Hargrove RNPain Rating: FLACC (Rest) - Nxq81205/18/2024 12:00 AM Georgia Hargrove RN Pain Rating: FLACC (Rest) - Hfgkucocrfiui757/04/2025 12:00 AM Georgia Hargrove, RNScore: FLACC (Rest) 12:00 AM Georgia Hargrove RNPain Rating: FLACC (Activity) - Cswc027 4:00 PM En Li RNPain Rating: FLACC (Activity) - Gpho792 4:00 PM En Li RNPain Rating: FLACC (Activity) 4:00 PM En Li RNPain Rating: FLACC (Activity) - Jff96103/16/2025 4:00 PM En Li RNPain Rating: FLACC (Activity) - Txmasorssoyos346/03/2025 4:00 PM En Li RNScore: FLACC (Activity)6105/17/2024 4:00 PM En Li RN * ReflexesQuestionAnswerEntry DateAuthorL PihoagjGikano40/10/2025 7:27 AM Parrish Smiht RNCoughPresent03/23/2025 7:27 AM Parrish Gresham RNGagUnable to dsoyqt7003/23/2025 7:27 AM Parrish Gresham RNR Corneal Fozdin8803/23/2025 7:27 AM Parrish Gresham RN * Respiratory InterventionsAnswerEntry DateAuthorCough and deep breathe 03/23/2025 7:27 AM Parrish Gresham RN * Cough and Deep BreatheQuestionAnswerEntry DateAuthorCough and Deep BreatheYes 03/23/2025 7:27 AM Parrish Gresham RN * IntegumentaryQuestionAnswerEntry DateAuthorSkin Integrity Bruising;Excoriation;Jxgvgck3403/24/2025 8:45 AM Rosana Zafar RNSkin Color Pale;Enifzrrnvd88/11/2025 7:34 PM Rylee Cook RNSkin TempWarm;Dry 03/24/2025 7:34 PM Rylee Cook RNCosignI Reviewed & Agree With The Skin and Wound Juyhmezpuv09/06/2025 1:45 AM THONGMetZenia bailon, RNBruising location Arm;Hand;Ieaubrq4603/24/2025 8:45 AM ESTWaRosana vasquez, RNBruising Orientation Bilateral;Left03/24/2025 8:45 AM ESTRosana Lemus, RNExcoriation Location Shzhyvwo15/11/2025 8:45 AM ESTRosana Lemus, RNExcoriation OrientationBilateral 03/24/2025 8:45 AM ESTWadeJeremya, RNFlaking PlshbxucQxjf56/11/2025 8:45 AM ESTWade, Rosana, RNFlaking YaqowxxqtbcRbtthxaws39/11/2025 8:45 AM ESTWade, Rosana, RNScaling LocationFoot;Leg03/24/2025 8:45 AM ESTWade, Rosana, RNScaling IucvfbwxcfxXuukgkmqq12/11/2025 8:45 AM ESTWaJeremy vasqueza, RNSwelling Location Yepdtwc6303/24/2025 8:45 AM ESTWaJeremy vasqueza, RNSwelling OrientationBilateral 03/23/2025 7:27 AM Parrish Gresham RNIntegumentary (WDL)X105/25/2024 7:34 PM Rylee Cook RN * Pain ScoreAnswerEntry YffcAuuovc084/11/2025 10:25 PM Rylee Cook RN * Confusion Assessment Method (CAM)QuestionAnswerEntry DateAuthorAcute OnsetNo 03/24/2025 7:34 PM Rylee Cook RNFluctuating HpoheuWl57/11/2025 8:45 AM Rosana Zafar RNInattentionNo03/24/2025 8:45 AM Rosana Zafar RN Disorganized JngehjzlBj27/11/2025 8:45 AM Rosana Zafar RNRate Patient's Level of ConsciousnessAlert (Normal), No03/24/2025 8:45 AM Rosana Zafar RN Delirium XyroxbfWe67/11/2025 8:45 AM Rosana Zafar RN * Confusion Assessment Method-ICU (CAM-ICU)QuestionAnswerEntry DateAuthorFeature 1: Acute Onset or Fluctuating YulcekIkdftrhu45/03/2025 4:00 PM En Li RNFeature 2: KxrzxgrhkthGkdfittd74/03/2025 4:00 PM En Li RN * Feature 3: Altered Level of ConsciousnessAnswerEntry DateAuthorNegative 03/20/2025 6:03 AM Britni Pastor RN * Urine Output/AssessmentQuestionAnswerEntry ZxvrCfgcdzPapgu10940/11/2025 10:07 PM Rylee Cook RNBladder Scan Volume Pre-Void or Cath (mL)6903/19/2025 1:10 PM Mahsa Field RNBladder Scan Volume Post-Void (mL) 4:00 PM Mahsa Field RNUrine JcsaqRjzht08/11/2025 10:07 PM Rylee Cook RN Urine AtpcsyqykzCwucu55/11/2025 10:07 PM Rylee Cook RN * Neuro ShortQuestionAnswerEntry DateAuthorLevel of UmoioogzwttteDxxar44/11/2025 3:23 PM Jb Martines RN * Respiratory ShortQuestionAnswerEntry DateAuthorR Breath HszzitBknqm75/11/2025 3:23 PM Jb Martines RNL Breath IhqbzlAjjfi36/11/2025 3:23 PM Jb Martines RNCoughNone105/25/2024 1:16 PM Summer Deal RN * Peripheral Vascular ShortQuestionAnswerEntry DateAuthorGeneralized EdemaNone 03/24/2025 3:23 PM Jb Martines RNCyanosisNone105/25/2024 3:23 PM Jb Wolf RN * Tattoos/PiercingsQuestionAnswerEntry DateAuthorPiercings FsbtahwjgTq66/06/2025 1:45 AM Flori Hoff RNDoes patient have tattoos?No03/19/2025 1:45 AM Flori Vinson RN * Oxygen TherapyQuestionAnswerEntry DateAuthorPulse Oximetry TypeContinuous 03/24/2025 3:23 PM Jb Martines RN * CardiovascularQuestionAnswerEntry DateAuthorCardiac RegularityRegular 03/24/2025 8:45 AM Rosana Zafar RNBedside JslpezwntzWqowrshah87/11/2025 8:45 AM Rosana Zafar RNMonitoring FsdgilkupxxxuKywpuwfklg10/11/2025 8:45 AM Rosana Zafar RNMonitoring AlarmsAudible;Alarms Set and Gmasmip0703/24/2025 8:45 AM Rosana Zaafr RNCapillary RefillLess than/equal to 3 seconds (All extremities)03/24/2025 7:34 PM Rylee Cook RNPulsesR dorsalis pedis/pedal;L dorsalis pedis/pedal;R radial;L tdxhuq3003/24/2025 7:34 PM Rylee Casas RNHeart SoundsS1, S203/24/2025 7:34 PM Rylee Cook RN Telemetry Box TacgufU31220/08/2025 3:29 PM Mahsa Field RNEdemaScrotal 03/24/2025 7:34 PM Rylee Cook RNPVS Additional RipfuohuefgEb30/06/2025 1:45 AM Flori Hoff RNJugular Venous Distention (JVD)None03/24/2025 7:34 PM Rylee Cook RNCardiac QbixtaofOzwl63/11/2025 7:34 PM Rylee Cook RN * Treatment PlanQuestionAnswerEntry DateAuthorDurationUntil mfoolwguz44/11/2025 10:52 AM Magaly Aguila CCC-SLPFrequency2-3days/week03/24/2025 10:52 AM Magaly Aguila CCC-SLP * Discharge Recommendations for Safe Patient TransitionQuestionAnswerEntry Date AuthorCurrent Impairments Informing Therapy VhfoddmdcdlixvFuxuobxgyo56/06/2025 10:12 AM Tatiana Leon CCC-SLPSLP Therapy RecommendationsContinue ST daumnemn11/11/2025 10:52 AM Magaly Aguila CCC-SLP documented in this encounter Discharge Summaries * Deana Albert MD - 03/24/2025 2:29 PM EST Images from the original note were not included. [facility] Medicine Discharge Summary Patient Name: Timmy Muñoz : 1955 PCP: GATO CHA MD DATE OF ADMISSION: 03/16/2025 DATE OF DISCHARGE: 03/24/2025 PRIMARY DISCHARGE DIAGNOSIS: Septic shock present on admission-resolved SECONDARY DISCHARGE DIAGNOSIS: Acute metabolic encephalopathy in setting of sepsis. History of dementia on rivastigmine. And history of schizoaffective/bipolar Acute on chronic respiratory failure with hypoxia-resolved. Currently on room air. Previously notedto use 2 L/min nasal cannula at baseline Right lower lobe bacterial pneumonia Enterococcus UTI Acute on chronic anemia. Concern for GI bleed with positive fecal occult on anemia of chronic disease. Oropharyngeal dysphagia COPD on home oxygen-no exacerbation ESRD on hemodialysis MWF Chronic systolic heart failure with no exacerbation Paroxysmal atrial fibrillation status post Maze on Eliquis Coronary artery disease status post CABG and stent. Brilinta on hold for history of GI bleed and anemia Chronic thrombocytopenia Sick sinus syndrome status post pacemaker Diabetes mellitus type 2 BPH on [facility] delirium CONSULTANTS: Nephrology Gastroenterology Infectious Disease Palliative Medicine HPI/HOSPITAL COURSE SUMMARY: Timmy Muñoz is a 70 y.o. male with a past medical history significant for COPD, on 2 L O2 baseline supplemental oxygen, history of coronary artery disease, history of CABG, history of ischemic cardiomyopathy, heart failure reduced ejection fraction, paroxysmal atrial fibrillation on Eliquis, hyp ertension, end-stage renal disease on hemodialysis, type 2 diabetes mellitus Who presented to outside ED initial concerns for altered mental status and initially evaluated as astroke alert at [place] Patient required transferred to [facility] ICU for septic shock For right lower lobe bacterial pneumonia and Enterococcus UTI Completed course of IV daptomycin andmeropenem Daptomycin and meropenem per infectious disease CT abdomen pelvis right basilar infiltrate underlying lesion not excluded and continued follow up recommended. Large left inguinal hernia extending in the scrotum without definitive obstruction or findings of acute ischemia. Large left inguinal hernia also noted on CT abdomen and pelvis 03/12/2024. Continue to trend H&H . Monitor for overt evidence of GI bleeding. Appreciate gastroenterology recommendations okay to continue anticoagulation as long as no overt GIbleed Per GI. No urgent endoscopic intervention warranted and to considering outpatient EGD/colonoscopy. Currently no liquid diet. Repeat swallow study Nebulizers prn Cardiology following. Toprol increased to 12.5 mg b.I.d.. Continue amiodarone 200 mg. DISCHARGE INSTRUCTIONS: Disposition: discharge to [facility] facility Condition: good Activity: as tolerated Diet: Adult diet Level 5 Minced and Moist diet; Level 3 Moderately Thick; No straws (No Liquids); No straws, meds crushed in puree, no ice, ice cream, popsicles, jellow, shakes, smoothies, small sips/one at a time, remain upright 15 mins after meals, as... Adult diet Code Status: Full Code FOLLOW-UP: Follow up with primary care provider within 1-2 weeks of discharge Follow up Infectious Disease in clinic in 2-3 weeks Follow up with Nephrology for hemodialysis Follow up with Gastroenterology for consideration for outpatient EGD / colonoscopy Physical Exam: BP 145/72 Pulse 71 Temp 36.5 ??C (97.7 ??F) (Oral) Resp 21 Ht 170.2 cm (5' 7 ) Wt 81.7 kg(180 lb 1.9 oz) SpO2 100% BMI 28.21 kg/m?? General appearance: alert, in no acute distress Skin: warm and dry to touch HEENT: atraumatic, EOM's intact Lungs: clear to ausculation bilaterally, no use of accessory muscles Heart: RRR, normal S1 and S2, no murmurs Abdomen: soft, non-distended, non-tender, bowel sounds normoactive Extremities: no edema Neurologic: no focal motor deficits Intake/output: Net IO Since Admission: -2,218.18 mL [03/24/25 1429] Labs: Results from last 7 days Lab Units 03/24/25 0547 03/23/25 1515 03/23/25 0604 03/22/25 1324 03/22/25 0529 WBC 10^9/L 4.5 -- 4.9 -- 4.3 HEMOGLOBIN g/dL 7.4* 7.4* 7.4* < > 6.8* HEMATOCRIT % 21.9* 21.9* 21.7* < > 20.1* PLATELETS 10^9/L 224 -- 212 -- 190 < > = values in this interval not displayed. Results from last 7 days Lab Units 03/24/25 0547 03/23/25 0604 03/22/25 0529 03/21/25 0642 SODIUM mmol/L 147* 145 144 146 POTASSIUM mmol/L 4.6 4.6 4.1 4.2 CHLORIDE mmol/L 116* 112* 110* 111* CO2 mmol/L 24 24 26 24 BUN mg/dL 45* 42* 37* 46* CREATININE mg/dL 2.22* 2.33* 2.03* 2.39* CALCIUM mg/dL 9.3 9.1 8.8 9.3 MAGNESIUM mg/dL -- 2.0 2.0 2.1 Results from last 7 days Lab Units 03/24/25 0547 03/23/25 0604 03/22/25 0529 ALBUMIN g/dL 3.4 3.2 3.1* PROTEIN TOTAL g/dL 6.3 6.1 5.9* ALT U/L 8 5 7 AST U/L 11 8 10 ALK PHOS U/L 170* 156* 151* Results from last 7 days Lab Units 03/24/25 0547 03/23/25 0604 03/22/25 0529 GLUCOSE mg/dL 125* 173* 122* No results found for: HGBA1C Results from last 7 days Lab Units 03/21/25 1708 03/21/25 1518 TROPONIN I HS ng/L 14 18 Results from last 7 days Lab Units 03/18/25 0203 PROCALCITONIN ng/mL 13.33* Results from last 7 days Lab Units 03/22/25 0700 VITAMIN B 12 pg/mL 507 FOLATE ng/mL 17.6 FERRITIN ng/mL 849* IRON ug/dL 40* IRON BINDING CAPACITY ug/dL 162* IRON SATURATION % SATURATION 25 Lab Results Component Value Date WBCU 3 03/15/2025 SPECIFICGRA 1.015 03/15/2025 LEUKOCYTE Negative 03/15/2025 NITRITEN Positive (A) 02/24/2025 PHNUR 6.5 02/24/2025 PROTEINNUR >=300 mg/dL (A) 02/24/2025 KETONESNUR 15 mg/dL (A) 02/24/2025 UROBILINOGEN 1.0 eu/dL 03/15/2025 BLOODHGBNU Large (A) 02/24/2025 Imaging X-ray chest 1 view Result Date: 03/16/2025 History: Right lower lobe infiltrate Technique: A portable single frontal view of the chest was obtained. Comparison: 03/15/25 Findings: A right lower lobe infiltrate is again seen. The heart size remains enlarged but is unchanged. The remaining lung emery are clear. There is a stable tunneled dialysis catheter on the right. Impression: Stable right lower lobe infiltrate. Finalized by Aurelio Saldaña MD on 03/16/2025 1:57 AM Last Echo Echo complete W/3D Recon Independ wkstn Result Date: 02/01/2025 1 1 [facility] Heart Station [address] [id number] [phone] (fax) Echocardiogram-[facility] Name: TIMMY MUÑOZ Study Date: 02/01/2025 04:09 PM B/P: 144 mmHg/65 mmHg HR: 72 bpm Date of : 1955 Location: [facility] Height: 67 in. Age: 69 year(s) Patient Room: 3135 Weight: 210 lb. Gender: Male Patient Status: InPt BSA: 2.06 m2 Indication: Arrhythmia, Ischemic cardiomyopathy, CHF with low EF, Atrial Fibrillation, H/O NSTEMI, H/O ETOH abuse Examination: Echocardiogram (Complete), Lumason Contrast Image Quality: Fair Patient Consent: Procedure explained to patient Exam Details Contrast: I.V. dose of LumasonConclusions Left Ventricle: The left ventricle is normal size. Global left ventricular systolic function is moderately reduced. The EF is 35 % visually. Left ventricular wall thickness is mildly increased. Regional wall motion abnormalities (see diagram). Grade 3, severe diastolic dysfunction (reversible restrictive LV filling pattern). Right Ventricle: The right ventricle is mildly enlarged. Right ventricular systolic function appears reduced. Doppler studies suggest severely elevated right sided pressures. Left Atrium: The left atrium is moderately enlarged. Right Atrium: The right atrium is moderately enlarged. Mitral Valve: Mild to moderate mitral regurgitation. Aortic Valve: Trivial aortic valve regurgitation. Tricuspid Valve: Moderate tricuspid regurgitation. Aorta: The aortic root exhibits mild dilatation. Overall Conclusions: Due to suboptimal imaging Lumason contrast was administered for opacification and better delineation of endocardial borders. Measurements Left Ventricle Label Value Normal Value LVOTd 2.2 cm (19cm - 21cm) LVOT VTI 19.3 cm (18cm - 22cm) LVOT PGmax 4 mmHgLVEF visual 35 % LVDd, 2D 5.41 cm (4.2cm - 5.9cm) LVDs, 2D 4.04 cm (2.1cm - 4cm) IVSd, 2D 1.44 cm (0.6cm - 1.1cm) LVPWd, 2D 1.24 cm (0.6cm - 1cm) LV Mass, 2D ASE 309.38 g LV Mass Index, 2D ASE 150.2 g/m?? (50g/m?? - 102.4g/m??) RWT, MM 0.46 (0 - 0.42) LVSVI, 2D 34 ml/m2 LVOT PGmean 2 mmHg LVSV_LVOT73 ml Right Ventricle Label Value Normal Value RVDd, 2D 4.42 cm (1.9cm - 3.8cm) TAPSE 1.5 cm Left Atrium Label Value Normal Value LA Volume, BP 96 ml (18ml - 58ml) LADs, 2D 4.5 cm (3cm - 4cm) LAESV index, BP 46.6 ml/m?? Right Atrium Label Value Normal Value RA Area 28 cm?? Aortic Valve Label Value Normal Value AV DVI 0.58 AV VTI 35.1 cm Mitral Valve Label Value Normal Value MV E Vmax 1.19 m/s MV A Vmax 0.51 m/s MV E/A 2.33 MV E/E' lateral 14.4 MV E' lateral 0.08 m/s Tricuspid Valve Label Value Normal Value RA Pressure 8 mmHg RVSP 69 mmHg TR Vmax 3.89 m/s Aorta Label Value Normal Value AoRoot,2D 3.9 cm (1.4cm - 3.8cm) Great Vessels Label Value Normal Value IVC 2.6 cm (1.2cm - 2.3cm) Valvular Assessment LVOT 0.7 - 1.1 m/sec Aortic Valve 1.0 - 1.7 m/sec Mitral Valve 0.6 - 1.3 m/sec Tricuspid Valve 0.3 - 0.7 m/sec Pulmonic Valve 0.6 - 0.9 m/sec Regurgitation Trivial MildMod Moderate Trivial Stenosis No No No No Max Velocity 1.05 m/sec 1.82 m/s 1.19 m/sec Max Gradient 13.00 mmHg Mean Gradient 7.00 mmHg Valve Area 2.2 cm?? Findings Left Ventricle: The left ventricle is normal size. Global left ventricular systolic function is moderately reduced. The EF is 35 % visually. Left ventricular wall thickness is mildly increased. Regional wall motion abnormalities (see diagram). The basal anterior, basal anteroseptal, basal inferoseptal, basal inferior, mid anterior, mid anteroseptal, mid i nferoseptal, mid inferior, apical anterior, apical septal, apical inferior and apex left ventricular wall segments are hypokinetic. All remaining scored left ventricular wall segments are with no wall motion abnormalities. Grade 3, severe diastolic dysfunction (reversible restrictive LV filling pattern). No thrombus is identified in the left ventricle. Right Ventricle: The right ventricle is mildly enlarged. Right ventricular systolic function appears reduced. A pacemaker wire is seen in the right atrium and right ventricle. Doppler studies suggest severely elevated right sided pressures. Left Atrium: The left atrium is moderately enlarged. Right Atrium: The right atrium is moderately enlarged. Mitral Valve: There is nonspecific thickening of the mitral valve leaflet. Mild to moderate mitral regurgitation. No mitral valve stenosis. Aortic Valve: Aortic valve is tri-leaflet. Trivial aortic valve regurgitation. No aortic valve stenosis. Aortic leaflets exhibit mild calcification. Tricuspid Valve: Tricuspid valve appears normal. Moderate tricuspid regurgitation. No tricuspid valve steno sis. Pulmonic Valve: Pulmonary valve appears normal. Trivial pulmonary regurgitation. No pulmonic valve stenosis. Aorta: The aortic root exhibits mild dilatation. Great Vessels: IVC: The IVC is dilated. Respiratory inspiration greater than 50%. Pericardium: No pericardial effusion. Procedure Staff Reading Group: [facility] Referring Physician: JOE LONG Grease Man[facility] Ordering Physician: RODOLFO MOORE Wall Motion Scores -1 - hyperkinesia, 0 - not evaluated, 1 - normal, 2 - hypokinesia, 3 - akinesia, 4 - dyskinesia Echo congenital limited W/O contrast Result Date: 12/22/2024 Left Ventricle: Severely reduced left ventricular systolic function with a visually estimated EF of15 - 20%. EF by visual approximation is 20%. Left ventricle size is normal. Moderately increased wall thickness. See diagram for wall motion findings. Normal diastolic function. Right Ventricle: Right ventricle size is normal. Lead present in the right ventricle. Normal systolic function. Aortic Valve: Mildly calcified cusps. Mitral Valve: Mildly thickened leaflets. Moderate regurgitation. Tricuspid Valve: Moderate to severe regurgitation. Severely elevated RVSP, consistent with severe pulmonary hypertension. RVSP is 75 mmHg. Image quality is adequate. Contrast used: Lumason. Left Ventricle Severely reduced left ventricular systolic function with a visually estimated EF of 15 - 20%. EF by visual approximation is 20%. Left ventricle size is normal. Moderately increased wall thickness. See diagram for wall motion findings. Normal diastolic function. Right Ventricle Right ventricle size isnormal. Lead present in the right ventricle. Normal systolic function. Left Atrium Left atrium sizeis normal. Right Atrium Lead present in the right atrium. Right atrium size is normal. IVC/SVC IVC diameter is dilated and decreases less than 50% during inspiration; therefore the estimated right atrial pressure is elevated (~15 mmHg). IVC size is normal. Mitral Valve Mildly thickened leaflets. Moderate regurgitation. No stenosis noted. Tricuspid Valve Valve structure is normal. Moderate to severe regurgitation. No stenosis noted. Severely elevated RVSP, consistent with severe pulmonary hypertension. RVSP is 75 mmHg. Aortic Valve Mildly calcified cusps. No regurgitation. No stenosis. Pulmonic Valve The pulmonic valve visualization is suboptimal but appears to be functioning normally. Physiologically normal regurgitation. No stenosis noted. Ascending Aorta Normal sized aortic root and ascending aorta. Pericardium No pericardial effusion. Septum No interatrial shunt visualized with colorDoppler. Study Details Image quality: adequate. Heart rate was 66 bpm. The underlying ECG rhythm was sinus rhythm. Cardiac history: PPM/AICD. Color flow Doppler was performed and pulse wave and/or continuous wave Doppler was performed. Lumason contrast was given to enhance imaging. Wall Scoring Baseline Score Index: 1.76 The following segments are akinetic: basal inferoseptal, basal inferior, mid inferoseptal and apical septal. The following segments are hypokinetic: basal anteroseptal, mid anteroseptal, mid inferior, apical inferior and apex. All other segments are normal. Echo complete W/3D Recon Independ wkstn Result Date: 07/08/2024 1 1 [facility] Heart Station [address] [place] [address] [phone] (fax) Echocardiogram-[facility] Name: TIMMY MUÑOZ Study Date: 07/08/2024 12:08 PM B/P: 132 mmHg/68 mmHg HR: Date of : 1955 Location: [facility] Height: 67 in. Age: 69 year(s) Patient Room: 3135 Weight: 230 lb. Gender: Male Patient Status: InPt BSA : 2.15 m2 Indication: CHF with low ejection fraction Examination: Echocardiogram (Complete), Lumason Contrast Image Quality: Fair Patient Consent: Procedure explained to patient Conclusions Left Ventricle: The left ventricle is normal size. Global left ventricular systolic function is severely reduced. The EF is 10 % visually. Left ventricular wall thickness is normal. Diffuse global hypokinesis.Right Ventricle: The right ventricle is enlarged. Right ventricular systolic function appears reduced. Doppler studies suggest moderately elevated right sided pressures (elevated pulmonary pressure).Left Atrium: The left atrium is moderately enlarged. Right Atrium: The right atrium is moderately enlarged. Mitral Valve: Mild mitral regurgitation. Tricuspid Valve: Moderate tricuspid regurgitation.Great Vessels: IVC: The IVC is dilated. There is no inspiratory collapse of the IVC. Overall Conclusions: Due to suboptimal imaging Lumason contrast was administered for opacification and better delineation of endocardial borders. Measurements Left Ventricle Label Value Normal Value LVOT VTI 10.5 cm (18cm - 22cm) LVOT PGmax 1 mmHg LVEF visual 10 % LVDd, 2D 5.28 cm (4.2cm - 5.9cm) LVDs, 2D 4.62 cm(2.1cm - 4cm) IVSd, 2D 1.33 cm (0.6cm - 1.1cm) LVPWd, 2D 1.07 cm (0.6cm - 1cm) LV Mass, 2D ASE 255.01 g LV Mass Index, 2D ASE 118.6 g/m?? (50g/m?? - 102.4g/m??) RWT, MM 0.41 (0 - 0.42) LVSVI, 2D 16.7ml/m2 LVOT PGmean 1 mmHg Right Ventricle Label Value Normal Value RVDd, 2D 4.59 cm (1.9cm - 3.8cm) TAPSE 0.78 cm Left Atrium Label Value Normal Value LA Volume, BP 87 ml (18ml - 58ml) LAESV index, BP40.5 ml/m?? Right Atrium Label Value Normal Value RA Area 24.2 cm?? Aortic Valve Label Value NormalValue AV DVI 0.44 AV VTI 21.7 cm Mitral Valve Label Value Normal Value MV E' lateral 0.08 m/s Tricuspid Valve Label Value Normal Value RA Pressure 15 mmHg RVSP 47 mmHg TR Vmax 2.82 m/s Aorta Label Value Normal Value AoRoot, 2D 3.8 cm (1.4cm - 3.8cm) Valvular Assessment LVOT 0.7 - 1.1 m/sec Aortic Valve 1.0 - 1.7 m/sec Mitral Valve 0.6 - 1.3 m/sec Tricuspid Valve 0.3 - 0.7 m/sec Pulmonic Valve 0.6- 0.9 m/sec Regurgitation No Mild Moderate Trivial Max Velocity 0.57 m/sec 1.30 m/s 0.84 m/s Max Gradient 7.00 mmHg 3.00 mmHg Mean Gradient 3.00 mmHg Findings Left Ventricle: The left ventricle is normal size. Global left ventricular systolic function is severely reduced. The EF is 10 % visually. Left ventricular wall thickness is normal. Diffuse global hypokinesis. Right Ventricle: The right vent ricle is enlarged. Right ventricular systolic function appears reduced. Doppler studies suggest moderately elevated right sided pressures (elevated pulmonary pressure). Left Atrium: The left atrium is moderately enlarged. Right Atrium: The right atrium is moderately enlarged. Mitral Valve: There isnonspecific thickening of the mitral valve leaflet. Mild mitral regurgitation. Aortic Valve: Focal aortic cusp thickening is noted. No aortic valve regurgitation. Tricuspid Valve: Normal tricuspid valve. Moderate tricuspid regurgitation. Pulmonic Valve: Normal pulmonary valve. Trivial pulmonary regurgitation. Aorta: The aortic root exhibits normal size. Great Vessels: IVC: The IVC is dilated. There is no inspiratory collapse of the IVC. Pericardium: No pericardial effusion. Procedure Staff Reading Group: [facility] Grease Man: Morena Green RDCS Ordering Physician: PIERRE AKINS Echo congenital limited W/O contrast Result Date: 01/26/2024 Left Ventricle: Moderately reduced left ventricular systolic function with a visually estimated EF of 35 - 40%. EF by 2D Simpsons Biplane is 36%. Left ventricle size is normal. Mild posterior thickening. Moderate septal thickening. Moderate hypokinesis of the following segments: basal inferior, midinferior and mid inferoseptal. Diastolic function indeterminate in the setting of atrial fibrillation. Right Ventricle: Right ventricle is mildly dilated. Lead present in the right ventricle. MitralValve: Moderate regurgitation with a centrally directed jet. Tricuspid Valve: Mild to moderate regurgitation with a centrally directed jet. The estimated RVSP is 87 mmHg. Severely elevated RVSP, consistent with severe pulmonary hypertension. Aorta: Normal sized ascending aorta. Mildly dilated aortic root. Ao root diameter is 4.1 cm. No previous studies were available for comparison. Left Ventricle Moderately reduced left ventricular systolic function with a visually estimated EF of 35 - 40%. EFby 2D Simpsons Biplane is 36%. Left ventricle size is normal. Mild posterior thickening. Moderate septal thickening.Moderate hypokinesis of the following segments: basal inferior, mid inferior and mid inferoseptal. Diastolic function indeterminate in the setting of atrial fibrillation. Right Ventricle Right ventricle is mildly dilated. Lead present in the right ventricle. Normal systolic function. Left Atrium Left atrium size is normal. Right Atrium Lead present in the right atrium. Right atrium size is normal. IVC/SVC IVC diameter is less than or equal to 21 mm and decreases greater than 50%during inspiration; therefore the estimated right atrial pressure is normal (~3 mmHg). IVC size is normal. Mitral Valve Valve structure is normal. Moderate regurgitation with a centrally directed jet. No stenosis noted. Tricuspid Valve Valve structure is normal. Mild to moderate regurgitation with a centrally directed jet. The estimated RVSP is 87 mmHg. No stenosis noted. Severely elevated RVSP, consistent with severe pulmonary hypertension. Aortic Valve Valve structure is normal. Trace regurgit ation. No stenosis. Pulmonic Valve The pulmonic valve visualization is suboptimal but appears to befunctioning normally. Mild regurgitation. No stenosis noted. Ascending Aorta Normal sized ascendingaorta. Mildly dilated aortic root. Ao root diameter is 4.1 cm. Pericardium No pericardial effusion. Pulmonary Artery Main pulmonary artery is mildly dilated. Study Details Image quality: adequate. Nocontrast was given. Echo limited W/O contrast Result Date: 04/08/2023 APPROVED REPORT Conclusion Mild left ventricular enlargement Mild concentric LVH Mild to moderate global LV systolic dysfunction with no obvious segmental wall motion abnormalities-ejection fraction 40% Grossly normal right-sided chamber dimensions Trileaflet aortic valve with mild calcification but no stenosis Grossly normal mitral valve No pericardial effusion Left Ventricle Left ventricle is mildly dilated. Mild to moderate overall LV systolic dysfunction with no major discrete wall motion abnormalities Borderline concentric left ventricular hypertrophy. General global hypokinesis The diastolic function was not assessed. LVEF is 40%. Right Ventricle The right ventricle is normal size. Right ventricular systolic function could not be assessed. Atria Left atrium is borderline dilated. The right atrium size is normal. The right atrium size is normal. Aortic Valve Trileaflet valve with mild fibrocalcific changes and normal opening in systole The aortic valve is normal in structure. There is no aortic valvular stenosis. Tricuspid Valve The tricuspid valve is normal in structure. Pulmonic Valve Pulmonic valve is not well visualized. Great Vessels The aortic root is normal in size. The IVC was not visualized. Pericardium There is no pericardial effusion. EXAM: Limited 2D Echocardiogram Imaging system used: Bee Resilient 2D Dimensions LVDd 5.5 cm M: 4.2 - 5.8 LVEF (Roberts's) 47.11 % M: 52 - 72 LVDs 4.58 cm M: 2.5 - 4.0 EF AP4-a2DQ 41.12 % EF AP2-a2DQ 50.69 % EF BP-a2DQ 47.11 % LVESV 89 mL LVEDV 167.48 mL M: 62 - 150 LV Volume Index 72.50 mL/m2 M: 34 - 74 Cultures Microbiology Results Procedure Component Value Units Date/Time Blood culture #1 [[id number]] Collected: 03/19/25 0649 Specimen: Blood, Venous Updated: 03/24/25801 CULTURE RESULTS NO GROWTH 5 DAYS Narrative: Suboptimal volume of blood collected, Results may be affected. Blood culture #2 [[id number]] Collected: 03/19/25648 Specimen: Blood, Venous Updated: 03/24/25801 CULTURE RESULTS NO GROWTH 5 DAYS Narrative: Suboptimal volume of blood collected, Results may be affected. DISCHARGE MEDICATIONS: Your medication list PAUSE taking these medications Instructions Last Dose Given Next Dose Due ranolazine 1,000 mg 12 hr tablet Wait to take this until your doctor or other care provider tells you to start again. Commonly known as: RANEXA sacubitriL-valsartan 24-26 mg tablet Wait to take this until your doctor or other care provider tells you to start again. Commonly known as: ENTRESTO ticagrelor 90 mg tablet Wait to take this until your doctor or other care provider tells you to start again. Commonly known as: BRILINTA START taking these medications Instructions Last Dose Given Next Dose Due aspirin 81 mg chewable tablet Start taking on: March 25, 2025 Chew 1 tablet (81 mg total) and swallow in the morning. metoprolol succinate XL 25 mg 24 hr tablet Commonly known as: TOPROL XL Take 0.5 tablets (12.5 mg total) by mouth in the morning and 0.5 tablets (12.5 mg total) before bedtime. CONTINUE taking these medications Instructions Last Dose Given Next Dose Due acetaminophen 500 mg tablet Commonly known as: TYLENOL EXTRA STRENGTH albuterol 90 mcg/actuation inhaler Commonly known as: PROVENTIL HFA;VENTOLIN HFA albuterol 2.5 mg /3 mL (0.083 %) nebulizer solution Commonly known as: PROVENTIL,VENTOLIN albuterol-budesonide 90-80 mcg/actuation HFA aerosol inhaler allopurinoL 200 mg tablet amiodarone 200 mg tablet Commonly known as: PACERONE ammonium lactate 12 % cream Commonly known as: AMLACTIN apixaban 5 mg tablet Commonly known as: ELIQUIS ARIPiprazole 10 mg tablet Commonly known as: ABILIFY atorvastatin 40 mg tablet Commonly known as: LIPITOR budesonide 0.5 mg/2 mL nebulizer solution Commonly known as: PULMICORT busPIRone 15 mg tablet Commonly known as: BUSPAR cholecalciferol 1,000 units tablet Commonly known as: VITAMIN D3 cyanocobalamin 1000 MCG tablet Take 1 tablet (1,000 mcg total) by mouth in the morning. darbepoetin sylwia-polysorbate 60 mcg/0.3 mL syringe Commonly known as: ARANESP Inject 0.3 mL (60 mcg total) under the skin once a week Indications: anemia due to kidney failure. DULoxetine 20 mg capsule Commonly known as: CYMBALTA ferrous sulfate 325 (65 FE) MG tablet gabapentin 100 mg capsule Commonly known as: NEURONTIN ipratropium-albuteroL 0.5 mg-3 mg(2.5 mg base)/3 mL nebulizer Commonly known as: DUONEB isosorbide mononitrate 120 mg 24 hr tablet Commonly known as: IMDUR melatonin 5 mg tablet Commonly known as: CIRCADIN Take 1 tablet (5 mg total) by mouth nightly as needed (insomina). midodrine 10 mg tablet Commonly known as: PROAMATINE nitroglycerin 0.4 MG SL tablet Commonly known as: NITROSTAT pantoprazole 40 mg EC tablet Commonly known as: PROTONIX polyethylene glycol 17 gram packet Commonly known as: GLYCOLAX risperiDONE 3 mg tablet Commonly known as: RisperDAL rivastigmine 4.6 mg/24 hour Commonly known as: EXELON sevelamer 800 mg tablet Commonly known as: RENVELA sodium chloride 0.9 % injection Infuse 10 mL into a venous catheter as needed for line care. spironolactone 25 mg tablet Commonly known as: ALDACTONE Take 0.5 tablets (12.5 mg total) by mouth in the morning. tamsulosin 0.4 mg capsule Commonly known as: FLOMAX topiramate 200 MG tablet Commonly known as: TOPAMAX STOP taking these medications carvediloL 3.125 mg tablet Commonly known as: COREG furosemide 80 mg tablet Commonly known as: LASIX ASK your doctor about these medications Instructions Last Dose Given Next Dose Due sodium chloride 0.9 % injection Infuse 20 mL into a venous catheter as needed for line care. sodium chloride 0.9 % injection Infuse 10 mL into a venous catheter every 12 (twelve) hours. Where to Get Your Medications Information about where to get these medications is not yet available Ask your nurse or doctor about these medications aspirin 81 mg chewable tablet metoprolol succinate XL 25 mg 24 hr tablet 35 minutes were spent on discharging this patient. Deana Albert MD documented in this encounter Medications at Time of Discharge MedicationSigDispense QuantityRefillsLast FilledStart DateEnd Date acetaminophen (TYLENOL EXTRA STRENGTH) 500 mg tablet Take 2 tablets (1,000 mg total) by mouth every 12 (twelve) hours as needed for pain. albuterol (PROVENTIL HFA;VENTOLIN HFA) 90 mcg/actuation inhaler Inhale 2 puffs every 6 (six) hours as needed for wheezing or shortness of breath. albuterol (PROVENTIL,VENTOLIN) 2.5 mg /3 mL (0.083 %) nebulizer solution Inhale 3 mL (2.5 mg total) every 6 (six) hours as needed for wheezing or shortness of breath. albuterol-budesonide 90-80 mcg/actuation HFA aerosol inhaler Inhale 2 puffs every 6 (six) hours as needed (wheezing, SOB). allopurinoL 200 mg tablet Take 200 mg by mouth in the morning. amiodarone (PACERONE) 200 mg tablet Take 1 tablet (200 mg total) by mouth in the morning.01/11/2025 ammonium lactate (AMLACTIN) 12 % cream Apply 1 Application topically in the morning and 1 Application before bedtime. apixaban (ELIQUIS) 5 mg tablet Take 1 tablet (5 mg total) by mouth in the morning and 1 tablet (5 mg total) before bedtime.04/08/2024 ARIPiprazole (ABILIFY) 10 mg tablet Indications:bipolar disorderTake 1 tablet (10 mg total) by mouth in the morning. Indications: manic-depression. aspirin 81 mg chewable tablet Chew 1 tablet (81 mg total) and swallow in the morning.03/25/2025 atorvastatin (LIPITOR) 40 mg tablet Indications:hyperlipidemiaTake 1 tablet (40 mg total) by mouth in the morning. Indications: excessive fat in the blood. budesonide (PULMICORT) 0.5 mg/2 mL nebulizer solution Inhale 2 mL (0.5 mg total) in the morning and 2 mL (0.5 mg total) before bedtime. busPIRone (BUSPAR) 15 mg tablet Take 1 tablet (15 mg total) by mouth 3 (three) times a day. cholecalciferol (VITAMIN D3) 1,000 units tablet Take 2 tablets (2,000 Units total) by mouth in the morning. cyanocobalamin 1000 MCG tablet Take 1 tablet (1,000 mcg total) by mouth in the morning.03/02/2025 darbepoetin sylwia-polysorbate (ARANESP) 60 mcg/0.3 mL syringe Indications:anemia due to renal failureInject 0.3 mL (60 mcg total) under the skin once a week Indications: anemia due to kidney failure.03/07/2025 DULoxetine (CYMBALTA) 20 mg capsule Take 1 capsule (20 mg total) by mouth in the morning. ferrous sulfate 325 (65 FE) MG tablet Take 1 tablet (325 mg total) by mouth daily with breakfast. gabapentin (NEURONTIN) 100 mg capsule Take 1 capsule (100 mg total) by mouth 3 (three) times a day. ipratropium-albuteroL (DUONEB) 0.5 mg-3 mg(2.5 mg base)/3 mL nebulizer Inhale 3 mL in the morning and 3 mL before bedtime. isosorbide mononitrate (IMDUR) 120 mg 24 hr tablet Take 1 tablet (120 mg total) by mouth daily.02/19/2025 melatonin (CIRCADIN) 5 mg tablet Take 1 tablet (5 mg total) by mouth nightly as needed (insomina).03/01/2025 metoprolol succinate XL (TOPROL XL) 25 mg 24 hr tablet Take 0.5 tablets (12.5 mg total) by mouth in the morning and 0.5 tablets (12.5 mg total) before bedtime.03/24/2025 midodrine (PROAMATINE) 10 mg tablet Take 1 tablet (10 mg total) by mouth every 3 (three) hours as needed (for hypotension give pre and mid dialysis).02/22/2025 nitroglycerin (NITROSTAT) 0.[address] 1 tablet (0.4 mg total) under the tongue every 5 (five) minutes as needed for chest pain.02/20/2025 pantoprazole (PROTONIX) 40 mg EC tablet Take 1 tablet (40 mg total) by mouth every morning before breakfast.12/29/2024 polyethylene glycol (GLYCOLAX) 17 gram packet Take 17 g by mouth in the morning. ranolazine (RANEXA) 1,000 mg 12 hr tablet Take 1 tablet (1,000 mg total) by mouth in the morning and 1 tablet (1,000 mg total) before bedtime.12/29/2024 risperiDONE (RisperDAL) 3 mg tablet Take 1 tablet (3 mg total) by mouth nightly.01/03/2025 rivastigmine (EXELON) 4.6 mg/[address] 1 patch on the skin in the morning.02/19/2025 sacubitriL-valsartan (ENTRESTO) 24-26 mg tablet Take 0.5 tablets by mouth in the morning and 0.5 tablets before bedtime. sevelamer (RENVELA) 800 mg tablet Take 1 tablet (800 mg total) by mouth 3 (three) times a day. sodium chloride 0.9 % injection Infuse 10 mL into a venous catheter as needed for line care.03/01/2025 sodium chloride 0.9 % injection Infuse 20 mL into a venous catheter as needed for line care.03/01/2025 sodium chloride 0.9 % injection Infuse 10 mL into a venous catheter every 12 (twelve) hours.03/01/2025 spironolactone (ALDACTONE) 25 mg tablet Take 0.5 tablets (12.5 mg total) by mouth in the morning.03/01/2025 tamsulosin (FLOMAX) 0.4 mg capsule Take 1 capsule (0.4 mg total) by mouth in the morning. ticagrelor (BRILINTA) 90 mg tablet Take 1 tablet (90 mg total) by mouth in the morning and 1 tablet (90 mg total) before bedtime. topiramate (TOPAMAX) 200 MG tablet Take 1 tablet (200 mg total) by mouth in the morning and 1 tablet (200 mg total) before bedtime.documented as of this encounter Progress Notes * Maritza Sharma MD - 03/24/2025 5:24 PM EST Images from the original note were not included. [facility] Mattcasandra Goncalves, A[employer]IC FACILITY MANAGER Nephrology Progress Note Patient Name: Timmy Muñoz : 1955 Date of Service: 03/24/25 PCP: GATO CHA MD Attending Physician: Deana Albert MD Admission Date: 03/16/2025 Length of stay: LOS: 8 days Chief complaint. Chief Complaint Patient presents with Altered Mental Status Reason for Consult: Assessment and Plan. 70-year-old male with a past medical history significant for end-stage renal disease (ESRD) on hemodialysis (Friday, , Friday schedule) since 12/23/2024 at [facility] under the care of Dr. Matt Sharma, chronic systolic heart failure with reduced ejection fraction (HFrEF) of 35%, paroxysmal atrial fibrillation on Eliquis, type 2 diabetes mellitus, and COPD on 2 liters of oxygen at baseline presented to the emergency department with altered mental status on 03/16/2025. The patient was initially at [facility] where a stroke alert was called for left-sided deficit, facial droop, and slurring of speech. CT of the brain was negative for acute pathology. A chest x-ray revealed a right lower lobe infiltrate, and the altered mental status was attributed to an infectious etiology. The patient was started on vancomycin and cefepime. While being transferred to [facility], he developed hypotension, unresponsiveness, and fever, prompting his return to the [facility] ED. There, a right femoral central line was placed, and he was started on vasopressor support with Levophed. He was subsequently transferred to the ICU at this facility for septic shock. Upon arrival in the ICU, he was noted to be alert but confused and not following commands, requiring Levophed. Nephrology consultation was requested for management of ESRD and planning for hemodialysis in thesetting of critical illness. Assessment End stage renal disease (ESRD) [facility]. Electrolyte Abnormalities: Stable. Acid-Base status: No significant acidosis or alkalosis. Volume Status: Appears euvolemic. Blood pressure remains on the low side. Net I/O over last 24 hours is -53.84 ml. Hypertension: Home antihypertensives are held due to hypotension. Hemodynamics: History of reduced LVEF EF 35% per last echo on 01/2025. Currently requires vasopressor support for hypotension. Anemia of CKD: Most recent hemoglobin is 7.2 g/dL. CKD-MBD / Renal Osteodystrophy: To be managed as per outpatient protocol. Sepsis secondary to right-sided pneumonia. Septic shock requiring vasopressor support. Acute on chronic hypoxic respiratory failure. COPD on 2L NC at baseline. Acute Metabolic encephalopathy, improving. Heart failure with reduced ejection fraction (HFrEF). Paroxysmal atrial fibrillation on Eliquis. Type 2 diabetes mellitus. Plan Plan for dialysis today Loop diuretics for volume management as needed Continue amiodarone Home dose of Entresto spironolactone Imdur Flomax to be resumed as able KG per protocol. Heme/onc and GI following for anemia Pneumonia and respiratory failure management per primary service/ ID Dose all medication to GFR <10 ml/min. Strict ins and outs, renal chemistry, and monitoring in AM. Thank you for this consultation, we will follow along with you regarding care of this patient whilethe patient is here in the hospital, please call if you have any questions or concerns. MARITZA SHARMA MD on 03/24/2025 at 5:24 PM [facility] 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 Schedule : See [facility] on-call schedule for [facility] ( [facility] ) Nephrology [facility] chat : Available on Blink for iPhone and Android chat during working hours only, if no response please use answering service Perfect serve answering service: [phone], if no response please use utilization reviewer Physician Cell phone Cell Phone for utilization reviewer Physician : Use as back up, available on Bl[employer] for iPhone and Android on-call schedule Subjective : Patient is stable seen at bedside, he remains confused Objective VITALS BP 146/86 Pulse 81 Temp 36.6 ??C (97.9 ??F) (Axillary) Resp 21 Ht 170.2 cm (5' 7 ) Wt 79.9 kg (176 lb 2.4 oz) SpO2 100% BMI 27.59 kg/m?? BMI: Body mass index is 27.59 kg/m??. Weight change: -0.3 kg (-10.6 oz) Wt Readings from Last 3 Encounters: 03/24/25 79.9 kg (176 lb 2.4 oz) 03/16/25 83 kg (183 lb) 02/28/25 83.4 kg (183 lb 13.8 oz) I/O (24 Hours) Intake/Output Summary (Last 24 hours) at 03/24/2025 1724 Last data filed at 03/24/2025 1523 Gross per 24 hour Intake 1080 ml Output 1110 ml Net -30 ml General: Awake, alert, he remains confused HEENT: No conjunctival pallor, anicteric sclera. Atraumatic, normocephalic. Moist oral mucosa. Neck: No lymphadenopathy, no JVD. Neck is supple. Cardiovascular: Regular rate and rhythm. S1 and S2 heard. No murmur, rub, or gallop. Dialysis port present in right upper chest. Respiratory: Bilateral air entry clear to auscultation. No wheezes, rhonchi or crackles. No respiratory distress. Abdomen: Soft, non-tender to palpation. Bowel sounds are normal. Extremities: No cyanosis, clubbing, or edema. Neurological: Patient awake, he remains confused, examination grossly nonfocal Skin: No rashes or lesions. Skin is pink, warm, and dry. Psychiatric: No agitation Medications Scheduled Meds: amiodarone, 200 mg, oral, Daily apixaban, 5 mg, oral, BID ARIPiprazole, 10 mg, oral, Daily aspirin, 81 mg, nasogastric, Daily budesonide, 0.5 mg, nebulization, Q12H busPIRone, 15 mg, nasogastric, TID cholecalciferol (vitamin D3), 1,000 Units, nasogastric, Daily cyanocobalamin, 1,000 mcg, nasogastric, Daily darbepoetin sylwia (ARANESP) injection, 60 mcg, subcutaneous, Weekly DULoxetine, 20 mg, oral, Daily ferrous sulfate, 325 mg, nasogastric, Daily with breakfast gabapentin, 100 mg, oral, TID ipratropium-albuteroL, 3 mL, nebulization, Q6H While awake metoprolol succinate XL, 12.5 mg, oral, BID pantoprazole, 40 mg, intravenous, Q12H risperiDONE, 3 mg, oral, Nightly rivastigmine, 1 patch, transdermal, Daily sodium chloride, 10 mL, intravenous, Q96H sodium chloride, 10 mL, intravenous, Q96H sodium chloride, 30 mL, intravenous, Q8H AND sodium chloride, 10 mL, intravenous, PRN AND sodium chloride, 20 mL, intravenous, PRN sodium citrate, 1.6 mL, intravenous, Q96H sodium citrate, 1.6 mL, intravenous, Q96H tamsulosin, 0.4 mg, oral, Daily topiramate, 200 mg, nasogastric, BID Continuous Infusions: PRN Meds: acetaminophen calcium gluconate OR calcium gluconate OR [DISCONTINUED] calcium gluconate ipratropium-albuteroL magnesium sulfate OR [DISCONTINUED] magnesium sulfate melatonin midodrine oxyCODONE OR oxyCODONE sodium chloride AND sodium chloride AND sodium chloride sodium chloride sodium chloride sodium chloride sodium chloride sodium citrate sodium citrate sodium phosphate IV OR sodium phosphate IV - central line OR [DISCONTINUED] sod phos di, mono-K phos mono Results Review: Renal Chemistry Results from last 7 days Lab Units 03/24/25 0547 03/23/25 0604 03/22/25 0529 03/21/25 0642 03/19/25 0649 SODIUM mmol/L 147* 145 144 146 140 POTASSIUM mmol/L 4.6 4.6 4.1 4.2 3.9 CHLORIDE mmol/L 116* 112* 110* 111* 104 CO2 mmol/L 24 24 26 24 27 BUN mg/dL 45* 42* 37* 46* 34* CREATININE mg/dL 2.22* 2.33* 2.03* 2.39* 2.23* CALCIUM mg/dL 9.3 9.1 8.8 9.3 9.0 MAGNESIUM mg/dL -- 2.0 2.0 2.1 -- Hepatic: Lab Results Component Value Date AST 11 03/24/2025 AST 8 03/23/2025 AST 10 03/22/2025 ALT 8 03/24/2025 ALT 5 03/23/2025 ALT 7 03/22/2025 ALKPHOS 170 (H) 03/24/2025 ALKPHOS 156 (H) 03/23/2025 ALKPHOS 151 (H) 03/22/2025 BNP Lab Results Component Value Date BNP 951 (H) 03/16/2025 Albumin: Lab Results Component Value Date ALBUMIN 3.4 03/24/2025 CBC Results from last 7 days Lab Units 03/24/25 1637 03/24/25 0547 03/23/25 1515 03/23/25 0604 03/22/25 1652 03/22/25 1324 03/22/25 0529 03/21/25 0642 03/19/25 0649 WBC 10^9/L -- 4.5 -- 4.9 -- -- 4.3 4.7 4.3 HEMOGLOBIN g/dL 8.7* 7.4* 7.4* 7.4* 7.6* < > 6.8* 7.4* 7.9* HEMATOCRIT % 25.6* 21.9* 21.9* 21.7* 22.5* < > 20.1* 21.8* 23.8* PLATELETS 10^9/L -- 224 -- 212 -- -- 190 165 118* < > = values in this interval not displayed. Results from last 7 days Lab Units 03/24/25 1432 03/24/25 0547 03/23/25 0604 03/22/25 0529 03/21/25 0642 BEDSIDE GLUCOSE mg/dL 133* -- -- -- -- GLUCOSE mg/dL -- 125* 173* 122* 144* Urine Studies: Lab Results Component Value Date COLOR Yellow 03/15/2025 TURBIDITY Clear 03/15/2025 SPECIFICGRA 1.015 03/15/2025 SPECIFICGRA 1.020 07/12/2012 NITRITE Negative 03/15/2025 PHURINE 7.0 03/15/2025 LEUKOCYTE Negative 03/15/2025 LEUKOCYTE Negative 07/12/2012 PROTEIN 100 mg/dL (A) 03/15/2025 KETONES Negative 03/15/2025 UROBILINOGEN 1.0 eu/dL 03/15/2025 UROBILINOGEN 0.2 07/12/2012 BLOODHGB Moderate (A) 03/15/2025 No results found for: URINECREATI , PROTUR , MICROALBUR , MICRAU No results found for: UPROCRTRAT , ALBCREATRA Urine Sodium: No components found for: TRAVIS Urine Potassium: No results found for: KUR Urine Chloride: No results found for: CLUR Urine Osmolarity: No components found for: OSMOU Urine Creatinine: No results found for: LABCREA Urine Eosinophils: No components found for: UEOS Urine Protein: No components found for: TPU Immunology Profile Lab Results Component Value Date CRP 1.6 (H) 02/25/2025 No results found for: HAV , HEPAIGM , HEPBIGM , HEPBCAB , HBEAG , HEPCAB SARITA: No results found for: SARITA C3:No results found for: C3 C4:No results found for: C4 MPO ANCA: No results found for: MPO PR3 ANCA: No components found for: PR3 hepatitis serologies ANTIGBM:No components found for: GBMABIGG HEPATITIS B SURFACE AG: Lab Results Component Value Date HEPBSAG Non-Reactive 02/25/2025 HEPATITIS C AB: No results found for: HEPCAB Electrophoresis: SPEP:No results found for: PROT , LABALPH , LABBETA , PATH UPEP:No results found for: LABPE Anemia Profile Lab Results Component Value Date WBC 4.5 03/24/2025 WBC 4.9 03/23/2025 HGB 8.7 (L) 03/24/2025 HGB 7.4 (L) 03/24/2025 HCT 25.6 (L) 03/24/2025 HCT 21.9 (L) 03/24/2025 PLT 224 03/24/2025 PLT 212 03/23/2025 Lab Results Component Value Date IRONSAT 25 03/22/2025 IRONSAT 30 02/25/2025 FERRITIN 849 (H) 03/22/2025 FERRITIN 551 (H) 02/25/2025 [id number] 507 03/22/2025 [id number] 226 02/25/2025 FOLATE 17.6 03/22/2025 FOLATE >25.0 02/25/2025 Bone Mineral Profile No results found for: PTH Echocardiogram: Echo complete W/3D Recon Independ wkstn Result Date: 02/01/2025 1 1 [facility] Heart Station [address], [place] [id number] (fax) Echocardiogram-[facility] Name: TIMMY MUÑOZ Study Date: 02/01/2025 04:09 PM B/P: 144 mmHg/65 mmHg HR: 72 bpm Date of : 1955 Location: [facility] Height: 67 in. Age: 69 year(s) Patient Room: 3135 Weight: 210 lb. Gender: Male Patient Status: InPt BSA: 2.06 m2 Indication: Arrhythmia, Ischemic cardiomyopathy, CHF with low EF, Atrial Fibrillation, H/O NSTEMI, H/O ETOH abuse Examination: Echocardiogram (Complete), Lumason Contrast Image Quality: Fair Patient Consent: Procedure explained to patient Exam Details Contrast: I.V. dose of LumasonConclusions Left Ventricle: The left ventricle is normal size. Global left ventricular systolic function is moderately reduced. The EF is 35 % visually. Left ventricular wall thickness is mildly increased. Regional wall motion abnormalities (see diagram). Grade 3, severe diastolic dysfunction (reversible restrictive LV filling pattern). Right Ventricle: The right ventricle is mildly enlarged. Right ventricular systolic function appears reduced. Doppler studies suggest severely elevated right sided pressures. Left Atrium: The left atrium is moderately enlarged. Right Atrium: The right atrium is moderately enlarged. Mitral Valve: Mild to moderate mitral regurgitation. Aortic Valve: Trivial aortic valve regurgitation. Tricuspid Valve: Moderate tricuspid regurgitation. Aorta: The aortic root exhibits mild dilatation. Overall Conclusions: Due to suboptimal imaging Lumason contrast was administered for opacification and better delineation of endocardial borders. Measurements Left Ventricle Label Value Normal Value LVOTd 2.2 cm (19cm - 21cm) LVOT VTI 19.3 cm (18cm - 22cm) LVOT PGmax 4 mmHgLVEF visual 35 % LVDd, 2D 5.41 cm (4.2cm - 5.9cm) LVDs, 2D 4.04 cm (2.1cm - 4cm) IVSd, 2D 1.44 cm (0.6cm - 1.1cm) LVPWd, 2D 1.24 cm (0.6cm - 1cm) LV Mass, 2D ASE 309.38 g LV Mass Index, 2D ASE 150.2 g/m?? (50g/m?? - 102.4g/m??) RWT, MM 0.46 (0 - 0.42) LVSVI, 2D 34 ml/m2 LVOT PGmean 2 mmHg [id number] ml Right Ventricle Label Value Normal Value RVDd, 2D 4.42 cm (1.9cm - 3.8cm) TAPSE 1.5 cm Left Atrium Label Value Normal Value LA Volume, BP 96 ml (18ml - 58ml) LADs, 2D 4.5 cm (3cm - 4cm) LAESV index, BP 46.6 ml/m?? Right Atrium Label Value Normal Value RA Area 28 cm?? Aortic Valve Label Value Normal Value AV DVI 0.58 AV VTI 35.1 cm Mitral Valve Label Value Normal Value MV E Vmax 1.19 m/s MV A Vmax 0.51 m/s MV E/A 2.33 MV E/E' lateral 14.4 MV E' lateral 0.08 m/s Tricuspid Valve Label Value Normal Value RA Pressure 8 mmHg RVSP 69 mmHg TR Vmax 3.89 m/s Aorta Label Value Normal Value AoRoot,2D 3.9 cm (1.4cm - 3.8cm) Great Vessels Label Value Normal Value IVC 2.6 cm (1.2cm - 2.3cm) Valvular Assessment LVOT 0.7 - 1.1 m/sec Aortic Valve 1.0 - 1.7 m/sec Mitral Valve 0.6 - 1.3 m/sec Tricuspid Valve 0.3 - 0.7 m/sec Pulmonic Valve 0.6 - 0.9 m/sec Regurgitation Trivial MildMod Moderate Trivial Stenosis No No No No Max Velocity 1.05 m/sec 1.82 m/s 1.19 m/sec Max Gradient 13.00 mmHg Mean Gradient 7.00 mmHg Valve Area 2.2 cm?? Findings Left Ventricle: The left ventricle is normal size. Global left ventricular systolic function is moderately reduced. The EF is 35 % visually. Left ventricular wall thickness is mildly increased. Regional wall motion abnormalities (see diagram). The basal anterior, basal anteroseptal, basal inferoseptal, basal inferior, mid anterior, mid anteroseptal, mid i nferoseptal, mid inferior, apical anterior, apical septal, apical inferior and apex left ventricular wall segments are hypokinetic. All remaining scored left ventricular wall segments are with no wall motion abnormalities. Grade 3, severe diastolic dysfunction (reversible restrictive LV filling pattern). No thrombus is identified in the left ventricle. Right Ventricle: The right ventricle is mildly enlarged. Right ventricular systolic function appears reduced. A pacemaker wire is seen in the right atrium and right ventricle. Doppler studies suggest severely elevated right sided pressures. Left Atrium: The left atrium is moderately enlarged. Right Atrium: The right atrium is moderately enlarged. Mitral Valve: There is nonspecific thickening of the mitral valve leaflet. Mild to moderate mitral regurgitation. No mitral valve stenosis. Aortic Valve: Aortic valve is tri-leaflet. Trivial aortic valve regurgitation. No aortic valve stenosis. Aortic leaflets exhibit mild calcification. Tricuspid Valve: Tricuspid valve appears normal. Moderate tricuspid regurgitation. No tricuspid valve stenosis. Pulmonic Valve: Pulmonary valve appears normal. Trivial pulmonary regurgitation. No pulmonic valve stenosis. Aorta: The aortic root exhibits mild dilatation. Great Vessels: IVC: The IVC is dilated. Respiratory inspiration greater than 50%. Pericardium: No pericardial effusion. Procedure Staff Reading Group: [facility] Referring Physician: JOE LONG Grease Man: PRACHI Baires Ordering Physician: RODOLFO MOORE Wall Motion Scores -1 - hyperkinesia, 0 - not evaluated, 1 - normal, 2 - hypokinesia, 3 - akinesia, 4 - dyskinesia Echo congenital limited W/O contrast Result Date: 12/22/2024 Left Ventricle: Severely reduced left ventricular systolic function with a visually estimated EF of15 - 20%. EF by visual approximation is 20%. Left ventricle size is normal. Moderately increased wall thickness. See diagram for wall motion findings. Normal diastolic function. Right Ventricle: Right ventricle size is normal. Lead present in the right ventricle. Normal systolic function. Aortic Valve: Mildly calcified cusps. Mitral Valve: Mildly thickened leaflets. Moderate regurgitation. Tricuspid Valve: Moderate to severe regurgitation. Severely elevated RVSP, consistent with severe pulmonary hypertension. RVSP is 75 mmHg. Image quality is adequate. Contrast used: Lumason. Left Ventricle Severely reduced left ventricular systolic function with a visually estimated EF of 15 - 20%. EF by visual approximation is 20%. Left ventricle size is normal. Moderately increased wall thickness. See diagram for wall motion findings. Normal diastolic function. Right Ventricle Right ventricle size isnormal. Lead present in the right ventricle. Normal systolic function. Left Atrium Left atrium sizeis normal. Right Atrium Lead present in the right atrium. Right atrium size is normal. IVC/SVC IVC diameter is dilated and decreases less than 50% during inspiration; therefore the estimated right atrial pressure is elevated (~15 mmHg). IVC size is normal. Mitral Valve Mildly thickened leaflets. Moderate regurgitation. No stenosis noted. Tricuspid Valve Valve structure is normal. Moderate to severe regurgitation. No stenosis noted. Severely elevated RVSP, consistent with severe pulmonary hypertension. RVSP is 75 mmHg. Aortic Valve Mildly calcified cusps. No regurgitation. No stenosis. Pulmonic Valve The pulmonic valve visualization is suboptimal but appears to be functioning normally. Physiologically normal regurgitation. No stenosis noted. Ascending Aorta Normal sized aortic root and ascending aorta. Pericardium No pericardial effusion. Septum No interatrial shunt visualized with colorDoppler. Study Details Image quality: adequate. Heart rate was 66 bpm. The underlying ECG rhythm was sinus rhythm. Cardiac history: PPM/AICD. Color flow Doppler was performed and pulse wave and/or continuous wave Doppler was performed. Lumason contrast was given to enhance imaging. Wall Scoring Baseline Score Index: 1.76 The following segments are akinetic: basal inferoseptal, basal inferior, mid inferoseptal and apical septal. The following segments are hypokinetic: basal anteroseptal, mid anteroseptal, mid inferior, apical inferior and apex. All other segments are normal. Echo complete W/3D Recon Independ wkstn Result Date: 07/08/2024 1 1 [facility] Heart Station [address] [place] [address] [phone] (fax) Echocardiogram-[facility] Name: TIMMY MUÑOZ Study Date: 07/08/2024 12:08 PM B/P: 132 mmHg/68 mmHg HR: Date of : 1955 Location: [facility] Height: 67 in. Age: 69 year(s) Patient Room: 3135 Weight: 230 lb. Gender: Male Patient Status: InPt BSA: 2.15 m2 Indication: CHF with low ejection fraction Examination: Echocardiogram (Complete), Lumason Contrast Image Quality: Fair Patient Consent: Procedure explained to patient Conclusions Left Ventricle: The left ventricle is normal size. Global left ventricular systolic function is severely reduced. The EF is 10 % visually. Left ventricular wall thickness is normal. Diffuse global hypokinesis.Right Ventricle: The right ventricle is enlarged. Right ventricular systolic function appears reduced. Doppler studies suggest moderately elevated right sided pressures (elevated pulmonary pressure).Left Atrium: The left atrium is moderately enlarged. Right Atrium: The right atrium is moderately enlarged. Mitral Valve: Mild mitral regurgitation. Tricuspid Valve: Moderate tricuspid regurgitation.Great Vessels: IVC: The IVC is dilated. There is no inspiratory collapse of the IVC. Overall Conclusions: Due to suboptimal imaging Lumason contrast was administered for opacification and better delineation of endocardial borders. Measurements Left Ventricle Label Value Normal Value LVOT VTI 10.5 cm (18cm - 22cm) LVOT PGmax 1 mmHg LVEF visual 10 % LVDd, 2D 5.28 cm (4.2cm - 5.9cm) LVDs, 2D 4.62 cm(2.1cm - 4cm) IVSd, 2D 1.33 cm (0.6cm - 1.1cm) LVPWd, 2D 1.07 cm (0.6cm - 1cm) LV Mass, 2D ASE 255.01 g LV Mass Index, 2D ASE 118.6 g/m?? (50g/m?? - 102.4g/m??) RWT, MM 0.41 (0 - 0.42) LVSVI, 2D 16.7ml/m2 LVOT PGmean 1 mmHg Right Ventricle Label Value Normal Value RVDd, 2D 4.59 cm (1.9cm - 3.8cm) TAPSE 0.78 cm Left Atrium Label Value Normal Value LA Volume, BP 87 ml (18ml - 58ml) LAESV index, BP40.5 ml/m?? Right Atrium Label Value Normal Value RA Area 24.2 cm?? Aortic Valve Label Value NormalValue AV DVI 0.44 AV VTI 21.7 cm Mitral Valve Label Value Normal Value MV E' lateral 0.08 m/s Tricuspid Valve Label Value Normal Value RA Pressure 15 mmHg RVSP 47 mmHg TR Vmax 2.82 m/s Aorta Label Value Normal Value AoRoot, 2D 3.8 cm (1.4cm - 3.8cm) Valvular Assessment LVOT 0.7 - 1.1 m/sec Aortic Valve 1.0 - 1.7 m/sec Mitral Valve 0.6 - 1.3 m/sec Tricuspid Valve 0.3 - 0.7 m/sec Pulmonic Valve 0.6- 0.9 m/sec Regurgitation No Mild Moderate Trivial Max Velocity 0.57 m/sec 1.30 m/s 0.84 m/s Max Gradient 7.00 mmHg 3.00 mmHg Mean Gradient 3.00 mmHg Findings Left Ventricle: The left ventricle is normal size. Global left ventricular systolic function is severely reduced. The EF is 10 % visually. Left ventricular wall thickness is normal. Diffuse global hypokinesis. Right Ventricle: The right ventricle is enlarged. Right ventricular systolic function appears reduced. Doppler studies suggest moderately elevated right sided pressures (elevated pulmonary pressure). Left Atrium: The left atrium is moderately enlarged. Right Atrium: The right atrium is moderately enlarged. Mitral Valve: There isnonspecific thickening of the mitral valve leaflet. Mild mitral regurgitation. Aortic Valve: Focal aortic cusp thickening is noted. No aortic valve regurgitation. Tricuspid Valve: Normal tricuspid valve. Moderate tricuspid regurgitation. Pulmonic Valve: Normal pulmonary valve. Trivial pulmonary regurgitation. Aorta: The aortic root exhibits normal size. Great Vessels: IVC: The IVC is dilated. There is no inspiratory collapse of the IVC. Pericardium: No pericardial effusion. Procedure Staff Reading Group: [facility] Grease Man: Morena Green RDCS Ordering Physician: PIERRE AKINS Echo congenital limited W/O contrast Result Date: 01/26/2024 Left Ventricle: Moderately reduced left ventricular systolic function with a visually estimated EF of 35 - 40%. EF by 2D Simpsons Biplane is 36%. Left ventricle size is normal. Mild posterior thickening. Moderate septal thickening. Moderate hypokinesis of the following segments: basal inferior, midinferior and mid inferoseptal. Diastolic function indeterminate in the setting of atrial fibrillation. Right Ventricle: Right ventricle is mildly dilated. Lead present in the right ventricle. Mitral Valve: Moderate regurgitation with a centrally directed jet. Tricuspid Valve: Mild to moderate regurgitation with a centrally directed jet. The estimated RVSP is 87 mmHg. Severely elevated RVSP, consistent with severe pulmonary hypertension. Aorta: Normal sized ascending aorta. Mildly dilated aorticroot. Ao root diameter is 4.1 cm. No previous studies were available for comparison. Left VentricleModerately reduced left ventricular systolic function with a visually estimated EF of 35 - 40%. EF by 2D Simpsons Biplane is 36%. Left ventricle size is normal. Mild posterior thickening. Moderate septal thickening.Moderate hypokinesis of the following segments: basal inferior, mid inferior and midinferoseptal. Diastolic function indeterminate in the setting of atrial fibrillation. Right Ventricle Right ventricle is mildly dilated. Lead present in the right ventricle. Normal systolic function.Left Atrium Left atrium size is normal. Right Atrium Lead present in the right atrium. Right atriumsize is normal. IVC/SVC IVC diameter is less than or equal to 21 mm and decreases greater than 50% during inspiration; therefore the estimated right atrial pressure is normal (~3 mmHg). IVC size is normal. Mitral Valve Valve structure is normal. Moderate regurgitation with a centrally directed jet.No stenosis noted. Tricuspid Valve Valve structure is normal. Mild to moderate regurgitation with acentrally directed jet. The estimated RVSP is 87 mmHg. No stenosis noted. Severely elevated RVSP, consistent with severe pulmonary hypertension. Aortic Valve Valve structure is normal. Trace regurgita tion. No stenosis. Pulmonic Valve The pulmonic valve visualization is suboptimal but appears to be functioning normally. Mild regurgitation. No stenosis noted. Ascending Aorta Normal sized ascending aorta. Mildly dilated aortic root. Ao root diameter is 4.1 cm. Pericardium No pericardial effusion. Pulmonary Artery Main pulmonary artery is mildly dilated. Study Details Image quality: adequate. No contrast was given. Echo limited W/O contrast Result Date: 04/08/2023 APPROVED REPORT Conclusion Mild left ventricular enlargement Mild concentric LVH Mild to moderate global LV systolic dysfunction with no obvious segmental wall motion abnormalities-ejection fraction 40% Grossly normal right-sided chamber dimensions Trileaflet aortic valve with mild calcification but no stenosis Grossly normal mitral valve No pericardial effusion Left Ventricle Left ventricle is mildly dilated. Mild to moderate overall LV systolic dysfunction with no major discrete wall motion abnormalities Borderline concentric left ventricular hypertrophy. General global hypokinesis The diastolic function was not assessed. LVEF is 40%. Right Ventricle The right ventricle is normal size. Right ventricular systolic function could not be assessed. Atria Left atrium is borderline dilated. The right atrium size is normal. The right atrium size is normal. Aortic Valve Trileaflet valve with mild fibrocalcific changes and normal opening in systole The aortic valve is normal in structure. There is no aortic valvular stenosis. Tricuspid Valve The tricuspid valve is normal in structure. Pulmonic Valve Pulmonic valve is not well visualized. Great Vessels The aortic root is normal in size. The IVC was not visualized. Pericardium There is no pericardial effusion. EXAM: Limited 2D Echocardiogram Imaging system used: GE 2D Dimensions LVDd 5.5 cm M: 4.2 - 5.8 LVEF (Roberts's) 47.11 % M: 52 - 72 LVDs 4.58 cm M: 2.5 - 4.0 EF AP4-a2DQ 41.12 % EF AP2-a2DQ 50.69 %EF BP-a2DQ 47.11 % LVESV 89 mL LVEDV 167.48 mL M: 62 - 150 LV Volume Index 72.50 mL/m2 M: 34 - 74 Thank you for the consultation. Please do not hesitate to contact us for any further questions/concerns. We will continue to follow along with you. * EMILI Izaguirre - 03/24/2025 10:17 AM EST NUTRITION ADULT INITIAL EVALUATION NUTRITION ASSESSMENT: Reason to be seen: length of stay Patient History: Admit Diagnosis: Patient Active Problem List Diagnosis Has a tremor Atrial fibrillation, chronic ([facility]) Type 2 diabetes mellitus with hyperglycemia ([facility]) Chronic obstructive pulmonary disease ([facility]) Acute systolic (congestive) heart failure ([facility]) End stage renal disease ([facility]) Sepsis with encephalopathy and septic shock, due to unspecified organism ([facility]) Past Medical History: Past Medical History: Diagnosis Date Acute myocardial infarction ([facility]) Cardiac pacemaker in situ Chronic systolic heart failure ([facility]) Dependence on renal dialysis Diabetes mellitus without complication ([facility]) End stage renal disease ([facility]) Has a tremor 02/25/2025 admission Hypomagnesemia Hyposmolality syndrome PNA (pneumonia) Sepsis with encephalopathy and septic shock, due to unspecified organism ([facility]) 03/16/2025 Syncope and collapse Past Surgical History:No past surgical history on file. Social/ Cognitive/ Economic: from a facility Brief Clinical Summary: Pt with past medical history of COPD on 2 L oxygen at baseline, history of CAD status post stent, history of CABG, ischemic cardiomyopathy, HFrEF (last echo showed EF of 35%),paroxysmal Afib on Eliquis, hypertension, ESRD on hemodialysis (T/T/S), type 2 diabetes mellitus. Initially he was admitted to ICU for septic shock and now out of ICU. Biochemical Data, Medical Tests, and Procedures: Labs: Results from last 3 days Lab Units 03/24/25 0547 03/23/25 0604 03/22/25 0529 SODIUM mmol/L 147* 145 144 POTASSIUM mmol/L 4.6 4.6 4.1 CHLORIDE mmol/L 116* 112* 110* CO2 mmol/L 24 24 26 BUN mg/dL 45* 42* 37* CREATININE mg/dL 2.22* 2.33* 2.03* CALCIUM mg/dL 9.3 9.1 8.8 ALBUMIN g/dL 3.4 3.2 3.1* ALK PHOS U/L 170* 156* 151* ALT U/L 8 5 7 AST U/L 11 8 10 Results from last 7 days Lab Units 03/24/25 0547 03/23/25 0604 03/22/25 0529 03/21/25 0642 03/19/25 0649 03/18/25 0203 GLUCOSE mg/dL 125* 173* 122* 144* 126* 166* Results from last 3 days Lab Units 03/24/25 0547 03/23/25 1515 03/23/25 0604 03/22/25 1324 03/22/25 0529 WBC 10^9/L 4.5 -- 4.9 -- 4.3 HEMOGLOBIN g/dL 7.4* 7.4* 7.4* < > 6.8* HEMATOCRIT % 21.9* 21.9* 21.7* < > 20.1* PLATELETS 10^9/L 224 -- 212 -- 190 MCV fL 94 -- 94 -- 94 < > = values in this interval not displayed. Results from last 3 days Lab Units 03/23/25 0604 03/22/25 0529 MAGNESIUM mg/dL 2.0 2.0 No data from last 3 days. Results from last 3 days Lab Units 03/24/25 0547 03/23/25 0604 03/22/25 0529 BILIRUBIN, TOTAL mg/dL 0.6 0.6 0.7 No results found for: HGBA1C Lab Results Component Value Date IRON 40 (L) 03/22/2025 TIBC 162 (L) 03/22/2025 FERRITIN 849 (H) 03/22/2025 Lab Results Component Value Date IRONSAT 25 03/22/2025 No results found for: CHOL No results found for: CHDL No results found for: HDL No results found for: LDLCALC No results found for: TRIG No results found for: VERYLOWLIP Lab Results Component Value Date [id number] 507 03/22/2025 Lab Results Component Value Date FOLATE 17.6 03/22/2025 Lab Results Component Value Date VITD25 14.6 (L) 02/25/2025 Comments (labs): Vit D low, Na 147 CL 116 BUN 45 creat 2.22 K 4.6 Medications/ Parenteral: Renvela Vit D, Medications Prior to Admission Medication Sig Dispense Refill Last Dose/Taking acetaminophen (TYLENOL EXTRA STRENGTH) 500 mg tablet Take 2 tablets (1,000 mg total) by mouth every12 (twelve) hours as needed for pain. Taking As Needed albuterol (PROVENTIL HFA;VENTOLIN HFA) 90 mcg/actuation inhaler Inhale 2 puffs every 6 (six) hours as needed for wheezing or shortness of breath. Taking As Needed albuterol (PROVENTIL,VENTOLIN) 2.5 mg /3 mL (0.083 %) nebulizer solution Inhale 3 mL (2.5 mg total)every 6 (six) hours as needed for wheezing or shortness of breath. Taking As Needed albuterol-budesonide 90-80 mcg/actuation HFA aerosol inhaler Inhale 2 puffs every 6 (six) hours as needed (wheezing, SOB). Taking As Needed allopurinoL 200 mg tablet Take 200 mg by mouth in the morning. Taking amiodarone (PACERONE) 200 mg tablet Take 1 tablet (200 mg total) by mouth in the morning. Taking ammonium lactate (AMLACTIN) 12 % cream Apply 1 Application topically in the morning and 1 Application before bedtime. Taking apixaban (ELIQUIS) 5 mg tablet Take 1 tablet (5 mg total) by mouth in the morning and 1 tablet (5 mg total) before bedtime. Taking ARIPiprazole (ABILIFY) 10 mg tablet Take 1 tablet (10 mg total) by mouth in the morning. Indications: manic-depression. Taking atorvastatin (LIPITOR) 40 mg tablet Take 1 tablet (40 mg total) by mouth in the morning. Indications: excessive fat in the blood. Taking budesonide (PULMICORT) 0.5 mg/2 mL nebulizer solution Inhale 2 mL (0.5 mg total) in the morning and2 mL (0.5 mg total) before bedtime. Taking busPIRone (BUSPAR) 15 mg tablet Take 1 tablet (15 mg total) by mouth 3 (three) times a day. Taking carvediloL (COREG) 3.125 mg tablet Take 1 tablet (3.125 mg total) by mouth in the morning and 1 tablet (3.125 mg total) before bedtime. Taking cholecalciferol (VITAMIN D3) 1,000 units tablet Take 2 tablets (2,000 Units total) by mouth in the morning. Taking cyanocobalamin 1000 MCG tablet Take 1 tablet (1,000 mcg total) by mouth in the morning. Taking darbepoetin sylwia-polysorbate (ARANESP) 60 mcg/0.3 mL syringe Inject 0.3 mL (60 mcg total) under theskin once a week Indications: anemia due to kidney failure. (Patient taking differently: Inject 0.3mL (60 mcg total) under the skin once a week Indications: anemia due to kidney failure. Mondays) Taking Differently DULoxetine (CYMBALTA) 20 mg capsule Take 1 capsule (20 mg total) by mouth in the morning. Taking ferrous sulfate 325 (65 FE) MG tablet Take 1 tablet (325 mg total) by mouth daily with breakfast. Taking furosemide (LASIX) 80 mg tablet Take 1 tablet (80 mg total) by mouth daily. Taking gabapentin (NEURONTIN) 100 mg capsule Take 1 capsule (100 mg total) by mouth 3 (three) times a day.Taking ipratropium-albuteroL (DUONEB) 0.5 mg-3 mg(2.5 mg base)/3 mL nebulizer Inhale 3 mL in the morning and 3 mL before bedtime. Taking isosorbide mononitrate (IMDUR) 120 mg 24 hr tablet Take 1 tablet (120 mg total) by mouth daily. Taking melatonin (CIRCADIN) 5 mg tablet Take 1 tablet (5 mg total) by mouth nightly as needed (insomina). Taking As Needed midodrine (PROAMATINE) 10 mg tablet Take 1 tablet (10 mg total) by mouth every 3 (three) hours as needed (for hypotension give pre and mid dialysis). Taking As Needed nitroglycerin (NITROSTAT) 0.[address] 1 tablet (0.4 mg total) under the tongue every 5 (five) minutes as needed for chest pain. Taking As Needed pantoprazole (PROTONIX) 40 mg EC tablet Take 1 tablet (40 mg total) by mouth every morning before breakfast. Taking polyethylene glycol (GLYCOLAX) 17 gram packet Take 17 g by mouth in the morning. Taking ranolazine (RANEXA) 1,000 mg 12 hr tablet Take 1 tablet (1,000 mg total) by mouth in the morning and 1 tablet (1,000 mg total) before bedtime. Taking risperiDONE (RisperDAL) 3 mg tablet Take 1 tablet (3 mg total) by mouth nightly. Taking rivastigmine (EXELON) 4.6 mg/[address] 1 patch on the skin in the morning. Taking sacubitriL-valsartan (ENTRESTO) 24-26 mg tablet Take 0.5 tablets by mouth in the morning and 0.5 tablets before bedtime. Taking sevelamer (RENVELA) 800 mg tablet Take 1 tablet (800 mg total) by mouth 3 (three) times a day. Taking sodium chloride 0.9 % injection Infuse 10 mL into a venous catheter as needed for line care. (Patient taking differently: Infuse 10 mL into a venous catheter every 12 (twelve) hours. Line care) Taking Differently spironolactone (ALDACTONE) 25 mg tablet Take 0.5 tablets (12.5 mg total) by mouth in the morning. Taking tamsulosin (FLOMAX) 0.4 mg capsule Take 1 capsule (0.4 mg total) by mouth in the morning. Taking ticagrelor (BRILINTA) 90 mg tablet Take 1 tablet (90 mg total) by mouth in the morning and 1 tablet(90 mg total) before bedtime. Taking topiramate (TOPAMAX) 200 MG tablet Take 1 tablet (200 mg total) by mouth in the morning and 1 tablet (200 mg total) before bedtime. Taking sodium chloride 0.9 % injection Infuse 20 mL into a venous catheter as needed for line care. (Patient not taking: Reported on 03/16/2025) Unknown sodium chloride 0.9 % injection Infuse 10 mL into a venous catheter every 12 (twelve) hours. (Patient not taking: Reported on 03/16/2025) Unknown Current Facility-Administered Medications Medication Dose Route Frequency Provider Last Rate Last Admin acetaminophen (TYLENOL) tablet 650 mg 650 mg oral Q6H PRN Elvira Atkins MD 650 mg at 03/24/25 0516 amiodarone (PACERONE) tablet 200 mg 200 mg oral Daily Landy Ness MD 200 mg at 03/24/25 0853 apixaban (ELIQUIS) tablet 5 mg 5 mg oral BID Deana Albert MD 5 mg at 03/24/25 0851 ARIPiprazole (ABILIFY) tablet 10 mg 10 mg oral Daily Ezio Mccabe MD 10 mg at 03/24/25 0900 aspirin chewable tablet 81 mg 81 mg nasogastric Daily Magdiel Greene MD 81 mg at 03/24/25 0853 budesonide (PULMICORT) nebulizer solution 0.5 mg 0.5 mg nebulization Q12H Celina Mckeon DO 0.5 mg at 03/24/25 0952 busPIRone (BUSPAR) tablet 15 mg 15 mg nasogastric TID Magdiel Greene MD 15 mg at 03/24/25 0516 calcium gluconate IVPB 1000 mg/50 mL (20 mg/mL premix) 1,000 mg intravenous PRN Ezio Mccabe MD Or calcium gluconate IVPB 2000 mg/100 mL (20 mg/mL premix) 2,000 mg intravenous PRN Ezio Mccabe MD cholecalciferol (vitamin D3) tablet 1,000 Units 1,000 Units nasogastric Daily Magdiel Greene MD 1,000 Units at 03/24/25 0852 cyanocobalamin tablet 1,000 mcg 1,000 mcg nasogastric Daily Magdiel Greene MD 1,000 mcg at 03/24/25 0851 darbepoetin sylwia-polysorbate (ARANESP) injection 60 mcg 60 mcg subcutaneous Weekly Maritza Sharma MD 60 mcg at 03/16/25 1748 DULoxetine (CYMBALTA) DR capsule 20 mg 20 mg oral Daily Ezio Mccabe MD 20 mg at 03/24/25 0859 ferrous sulfate tablet 325 mg 325 mg nasogastric Daily with breakfast Magdiel Greene MD 325 mg at 03/24/25 0853 gabapentin (NEURONTIN) capsule 100 mg 100 mg oral TID Ezio Mccabe MD 100 mg at 03/24/25 0516 ipratropium-albuteroL (DUONEB) 0.5 mg-3 mg(2.5 mg base)/3 mL nebulizer solution 3 mL 3 mL nebulization Q6H PRN Sumit Osborne MD ipratropium-albuteroL (DUONEB) 0.5 mg-3 mg(2.5 mg base)/3 mL nebulizer solution 3 mL 3 mL nebulization Q6H While awake Deana Albert MD magnesium sulfate IVPB 2000 mg/50 mL in iso-osmotic water (40 mg/mL premix) 2,000 mg intravenous PRN Ezio Mccabe MD Stopped at 03/17/25 0652 melatonin (CIRCADIN) tablet 5 mg 5 mg oral Nightly PRN Deana Albert MD 5 mg at 03/23/25 213 metoprolol succinate XL (TOPROL XL) 24 hr tablet 12.5 mg 12.5 mg oral BID Siddhartha Vazquez MD 12.5 mg at 03/24/25 0851 midodrine (PROAMATINE) tablet 5 mg 5 mg oral PRN Siddhartha Vazquez MD oxyCODONE (ROXICODONE) immediate release tablet 5 mg 5 mg oral Q4H PRN Merlin Albaro, MATERIAL REQUISITIONER-A[employer]ATIC FACILITY MANAGER 5 mg at 03/23/25 2133 Or oxyCODONE (ROXICODONE) immediate release tablet 10 mg 10 mg oral Q4H PRN Merlin Albaro, MATERIAL REQUISITIONER-AQUATIC FACILITY MANAGER pantoprazole (PROTONIX) injection 40 mg 40 mg intravenous Q12H Merlin Albaro, MATERIAL REQUISITIONER-AQUATIC FACILITY MANAGER 40 mg at 03/24/25 0900 risperiDONE (RisperDAL) tablet 3 mg 3 mg oral Nightly Farheen Abel MD 3 mg at 03/23/252128 rivastigmine (EXELON) 4.6 mg/24 hour 1 patch 1 patch transdermal Daily Magdiel Greene MD 1 patch at 03/24/25 0900 sodium chloride 0.9 % flush 30 mL 30 mL intravenous Q8H Ezio Mccabe MD 30 mL at 03/24/25 0901 And sodium chloride 0.9 % flush 10 mL 10 mL intravenous PRN Ezio Mccabe MD And sodium chloride 0.9 % flush 20 mL 20 mL intravenous PRN Ezio Mccabe MD sodium chloride 0.9 % flush 10 mL 10 mL intravenous Q96H Maritza Sharma MD sodium chloride 0.9 % flush 10 mL 10 mL intravenous Q96H Maritza Sharma MD 10 mL at 03/20/25 1436 sodium chloride 0.9 % flush 10 mL 10 mL intravenous PRN Maritza Sharma MD 10 mL at 03/21/25 1238 sodium chloride 0.9 % flush 10 mL 10 mL intravenous PRCrow Sharma MD 10 mL at 03/18/25 1057 sodium chloride 0.9 % flush 10 mL 10 mL intravenous PRN Maritza Sharma MD 10 mL at 03/21/25 1238 sodium chloride 0.9 % flush 10 mL 10 mL intravenous PRN Maritza Sharma MD 10 mL at 03/18/25 1057 sodium citrate 4 % (3 mL) flush 1.6 mL 1.6 mL intravenous Q96H Maritza Sharma MD sodium citrate 4 % (3 mL) flush 1.6 mL 1.6 mL intravenous Q96H Maritza Sharma MD sodium citrate 4 % (3 mL) flush 1.6 mL 1.6 mL intravenous PRCrow Sharma MD 1.6 mL at 03/21/25 1400 sodium citrate 4 % (3 mL) flush 1.6 mL 1.6 mL intravenous BERTON Maritza Sharma MD 1.6 mL at 03/21/25 1400 sodium phosphate 20 mmol in sodium chloride 0.9 % 250 mL IVPB 20 mmol intravenous PRN Ezio Mccabe MD Or sodium phosphate 20 mmol in sodium chloride 0.9 % 100 mL IVPB 20 mmol intravenous PRN Ezio Mccabe MD tamsulosin (FLOMAX) 24 hr capsule 0.4 mg 0.4 mg oral Daily Landy Ness MD 0.4 mg at 03/24/25 0851 topiramate (TOPAMAX) tablet 200 mg 200 mg nasogastric BID Magdiel Greene MD 200 mg at 03/24/25 0853 Nutrition Focused Physical Findings no IVF running, pt is ESRD, Urine output 350ml yesterday Extremities, Muscles, and Bones- pt is not in room. Skin (per nursing flow sheets): Skin Color: Pale; Ecchymosis (03/23/251940) Skin Temp: Warm; Dry (03/23/251940) Wound (per nursing flow sheets): Wound 03/20/25 1 Skin Tear Arm Anterior;Left-Site Assessment: Dry (03/23/25726) Gastrointestinal (per nursing flow sheets): Abdomen Assessment: Soft; Nondistended (03/23/251940) Last BM Date: 03/23/25 (03/23/251940) Passing Flatus: Yes (03/23/25726) RUQ Bowel Sounds: Active (03/23/251940) LUQ Bowel Sounds: Active (03/23/251940) RLQ Bowel Sounds: Active (03/23/251940) LLQ Bowel Sounds: Active (03/23/251940) GI Symptoms: None (03/23/251940) Edema (per nursing flow sheets): Generalized Edema: None (03/23/25726) RLE Edema: +1 (03/23/25726) LLE Edema: +1 (03/23/25726) Intake/ Output Last 24 hrs: Intake/Output Summary (Last 24 hours) at 03/24/2025 1018 Last data filed at 03/23/20251940 Gross per 24 hour Intake 20 ml Output 350 ml Net -330 ml Food/Nutrition Related History: Diet History: was recently in hospital, on 1200ml fluid restricted, level 6, renal restricted diet Allergies: Allergies Allergen Reactions Diphenhydramine Anxiety, Hallucinations and Other (See Comments) Confusion Amlodipine Depakote [Divalproex] Felodipine Metformin Nitroglycerin Hives Patient states I get hives , breakout in rashes Ropinirole Sulfa (Sulfonamide Antibiotics) Diet/ Nutrition Order Review: Dietary Orders (From admission, onward) Start Ordered 03/22/25 180 Adult diet Level 4 Pureed diet; No fluids on tray (No Liquids); Small sips/bites at atime, one bit/sip at a time Diet effective now Question Answer Comment Diet Type: Level 4 Pureed diet Additional Liquid/Fluid Modifiers: No fluids on tray No Liquids Nursing Instructions: Small sips/bites at a time, one bit/sip at a time 03/22/25 1807 Diet Intakes: Percent Meals Eaten (%): 75 (03/23/25 1941) Anthropometrics: Ht Readings from Last 1 Encounters: 03/22/25 170.2 cm (5' 7 ) Wt Readings from Last 20 Encounters: 03/24/25 81.7 kg (180 lb 1.9 oz) 03/16/25 83 kg (183 lb) 02/28/25 83.4 kg (183 lb 13.8 oz) 02/24/25 64.9 kg (143 lb) Last 3 Weight Readings 03/22/25 1011 03/23/25 0500 03/24/25 0451 Weight: 82 kg (180 lb 12.4 oz) 81.5 kg (179 lb 10.8 oz) 81.7 kg (180 lb 1.9 oz) Admit Weight: 82kg (Bed Scale, 03/22) Usual Body Weight: see above Renal Standard Weight: 77kg Percent [place] [place] Weight: 106 Weight Changes: stable Body Mass Index: Body mass index is 28.21 kg/m??. BMI Category: Pre-obese (25.00- 29.99) Comparative Standards: Estimated Energy Needs: 4856-5902 kcals daily. Method and weight used: 25-35 kcal/kg RSW 77kg Estimated Protein Needs: 85-116 grams daily. Method and weight used: 1.1-1.5g protein/kg RSW Estimated Fluid Needs: 0944-0807 ml daily. Method weight used: 25-35 ml/kg RSW Comments: dialysis needs Malnutrition Status: Malnutrition Present: No NUTRITION DIAGNOSIS: Intake Diagnosis: Inadequate fluid intake (NI 3.1) related to dysphagia as evidenced by failed swallow study for fluids. *note pt is on HD for ESRD, low UO NUTRITION INTERVENTIONS: Meals & snacks: continue diet per PROPRIETARY TRADER. Supplements (medical food, vitamin or mineral): will add magic cup BID fof 290 kcal and 9 g proteinper serving.Monitor renal labs. Defer fluids to renal; may need supplemental route for fluids if not contraindicated( ie enteral feeding tube) , noted some UO. GOAL(S): >75% of meals/supplements to be taken. NUTRITION MONITORING AND EVALUATION: I/O, weights, po intake, supplement acceptance. Ileana Bowden R.D,LLeora. Clinical dietitian Patient Touch extension:[phone] Direct Dial phone number: [phone] 03/24/25 10:55 AM * Tanna Josue MD - 03/24/2025 8:22 AM EST [facility] - Daily Progress Note Timmy Muñoz Admission date/time 03/16/2025 5:16 AM Today's Date and Time: 03/24/2025, 8:22 AM Impression : Sepsis Fever Aspiration pneumonia Right basilar infiltrate Right pleural effusion Enterococcus UTI History of ESBL E coli UTI February 2025 Altered mental status COPD CAD status post stenting and CABG Ischemic cardiomyopathy Heart failure with reduced ejection fraction AFib on Eliquis Hypertension End-stage renal disease on hemodialysis Type 2 diabetes mellitus Anemia Thrombocytopenia Prolonged QTC Recommendations: CT abdomen pelvis without contrast 03/22/2025: IMPRESSION: Large left inguinal hernia extending into the scrotum containing a large and small bowel without definite obstruction or findings of acute ischemia. Close follow-up recommended. Right basilar infiltrate suggestive of pneumonia but not completely imaged on this study. An underlying lesion is not excluded and follow-up is recommended. Moderate right pleural effusion. ECG 03/22/2025: Prolonged QTC of 517 Cultures Blood cultures x2 03/19/2025 finalized with no growth Blood cultures x2 03/16/25 finalized with no growth. MRSA PCR 03/16/2025 finalized negative Respiratory pathogen panel 03/16/2025 final negative Urine culture 03/15/2025 positive for Enterococcus Blood cultures x2 03/15/2025 negative Previous admission Urine culture 02/24/2025 positive for ESBL E coli. Antibiotics Completed daptomycin and meropenem March 23, 2025 Nephrology and palliative medicine on consult Follow-up WBC platelets creatinine LFT ID clinic in 2-3 weeks Supportive care FOLLOW UP/chief complaints Aspiration pneumonia, Enterococcus UTI Interval History: The patient is seen resting in bed. Afebrile. Denies nausea, vomiting, diarrhea, trauma rash. ROS: Negative except as above Social History: Social History Socioeconomic History Marital status: Single Spouse name: Not on file Number of children: Not on file Years of education: Not on file Highest education level: Not on file Occupational History Not on file Tobacco Use Smoking status: Never Smokeless tobacco: Never Tobacco comments: 02/25 TEO - AMS, unable to reach family. [facility] pt does not have history of smoking on file with them Vaping Use Vaping status: Unknown Substance and Sexual Activity Alcohol use: Defer Comment: 02/25 TEO - AMS, unable to reach family. Drug use: Not on file Comment: 02/25 TEO - AMS, unable to reach family. Sexual activity: Not on file Other Topics Concern Not on file Social History Narrative Not on file Social Drivers of Health Financial Resource Strain: Low Risk (01/31/2025) [facility] Difficulty of Paying Living Expenses: Not hard at all Food Insecurity: No Food Insecurity (03/19/2025) Hunger Screening Food Insecurity - Worry: Never True Food Insecurity - Inability: Never True Transportation Needs: No Transportation Needs (02/25/2025) PRAPARE - Transportation Lack of Transportation (Medical): No Lack of Transportation (Non-Medical): No Physical Activity: Not on file Stress: Not on file Social Connections: Not on file Interpersonal Safety: Patient Unable To Answer (02/25/2025) Humiliation, Afraid, Rape, and Kick questionnaire Fear of Current or Ex-Partner: Patient unable to answer Emotionally Abused: Patient unable to answer Physically Abused: Patient unable to answer Sexually Abused: Patient unable to answer Housing Instability: Low Risk (02/25/2025) Housing Instability Housing Instability: No Family History: Family History Family history unknown: Yes Physical Examination : Vitals: 03/24/25 0451 03/24/25 0551 03/24/25 0635 03/24/25 0808 BP: 118/69 Pulse: 73 73 76 Resp: 16 19 20 Temp: TempSrc: Oral SpO2: 98% 98% 90% Weight: 81.7 kg (180 lb 1.9 oz) Height: Temperature Range: Temp: 36.6 ??C (97.8 ??F) Temp Av.6 ??C (97.8 ??F) Min: 36.6 ??C (97.8 ??F)Max: 36.6 ??C (97.8 ??F) General Appearance: Awake, alert, and in no apparent distress Pulmonary/Chest: Clear to auscultation, without wheezes, rales, or rhonchi Cardiovascular: Regular rate and rhythm without murmurs, rubs, or gallops. Abdomen: soft, non-tender, without masses or organomegaly, normal bowel sounds Extremities: No cyanosis, clubbing, edema, or effusions. Skin:no unusual rash Laboratory data: I have independently reviewed the following labs: Results from last 7 days Lab Units 03/24/25 0547 03/23/25 1515 03/23/25 0604 03/22/25 1324 03/22/25 0529 WBC 10^9/L 4.5 -- 4.9 -- 4.3 HEMOGLOBIN g/dL 7.4* 7.4* 7.4* < > 6.8* HEMATOCRIT % 21.9* 21.9* 21.7* < > 20.1* PLATELETS 10^9/L 224 -- 212 -- 190 < > = values in this interval not displayed. Results from last 7 days Lab Units 03/24/25 0547 03/23/25 0604 03/22/25 0529 03/21/25 0642 POTASSIUM mmol/L 4.6 4.6 4.1 4.2 CHLORIDE mmol/L 116* 112* 110* 111* CO2 mmol/L 24 24 26 24 BUN mg/dL 45* 42* 37* 46* CREATININE mg/dL 2.22* 2.33* 2.03* 2.39* EGFR (CKD-EPI) NON-RACE DEPENDENT ml/min/1.73sq.m 31* 29* 34* 28* CALCIUM mg/dL 9.3 9.1 8.8 9.3 MAGNESIUM mg/dL -- 2.0 2.0 2.1 Results from last 7 days Lab Units 03/24/25 0547 03/23/25 0604 03/22/25 0529 ALK PHOS U/L 170* 156* 151* ALT U/L 8 5 7 AST U/L 11 8 10 Lab Results Component Value Date CRP 1.6 (H) 02/25/2025 No results found for: SEDRATE Cultures: Microbiology Results Procedure Component Value Units Date/Time Blood culture #1 [[id number]] Collected: 03/19/25648 Specimen: Blood, Venous Updated: 03/24/25801 CULTURE RESULTS NO GROWTH 5 DAYS Narrative: Suboptimal volume of blood collected, Results may be affected. Blood culture #2 [[id number]] Collected: 03/19/25648 Specimen: Blood, Venous Updated: 03/24/25801 CULTURE RESULTS NO GROWTH 5 DAYS Narrative: Suboptimal volume of blood collected, Results may be affected. Imaging Studies: CT abdomen and pelvis without contrast Result Date: 03/22/2025 Clinical History: Fever. CT abdomen and pelvis without contrast: 03/22/2025 Procedure: Axial images were obtained through the abdomen and pelvis without intravenous contrast. Coronal and sagittal reconstructions were performed. All CT scans at this facility use dose modulation, iterative reconstruction, and/or weight based dosing when appropriate to reduce radiation dose to as low as reasonably achievable. Findings: There is confluent opacity in the right basilar region with a right pleural effusion. Minimal strandy density is present in the left lung base centrally. Noncontrast evaluation of abdominal and retroperitoneal organs is not optimal. No focal hepatic or splenic abnormality is present. There is no pancreatic, adrenal, or biliary abnormality grossly. The patient is postcholecystectomy. . Punctate nonobstructing right superior pole renal calculus is present. There is no hydronephrosis. Renal contours are within normal limits. The ureters and urinary bladder are within normal limits. A moderate of stool is present within the left colon extending to the rectosigmoid region. Enlarged left inguinal hernia contains a large portion of the colon. There is no free intracranial gas or fluid. No mass or mass effect is evident. Moderate calcifications are present within the aorta and iliac vessels. There are degenerative changes through the lower lumbar spine and within the hips. G eographic sclerosis within the superior femoral heads are compatible with avascular necrosis. IMPRESSION: Large left inguinal hernia extending into the scrotum containing a large and small bowel without definite obstruction or findings of acute ischemia. Close follow-up recommended. Right basilar in filtrate suggestive of pneumonia but not completely imaged on this study. An underlying lesion is not excluded and follow-up is recommended. Moderate right pleural effusion. Other chronic appearing findings as described above. Finalized by Lester Morgan MD on 03/22/2025 3:06 PM Medications: amiodarone, 200 mg, oral, Daily apixaban, 5 mg, oral, BID ARIPiprazole, 10 mg, oral, Daily aspirin, 81 mg, nasogastric, Daily budesonide, 0.5 mg, nebulization, Q12H busPIRone, 15 mg, nasogastric, TID cholecalciferol (vitamin D3), 1,000 Units, nasogastric, Daily cyanocobalamin, 1,000 mcg, nasogastric, Daily DAPTOmycin (CUBICIN) IV, 500 mg, intravenous, Q48H darbepoetin sylwia (ARANESP) injection, 60 mcg, subcutaneous, Weekly DULoxetine, 20 mg, oral, Daily ferrous sulfate, 325 mg, nasogastric, Daily with breakfast gabapentin, 100 mg, oral, TID ipratropium-albuteroL, 3 mL, nebulization, Q6H [COMPLETED] meropenem, 500 mg, intravenous, Once FOLLOWED BY meropenem, 500 mg, intravenous, Q24H metoprolol succinate XL, 12.5 mg, oral, BID pantoprazole, 40 mg, intravenous, Q12H risperiDONE, 3 mg, oral, Nightly rivastigmine, 1 patch, transdermal, Daily sodium chloride, 10 mL, intravenous, Q96H sodium chloride, 10 mL, intravenous, Q96H sodium chloride, 30 mL, intravenous, Q8H AND sodium chloride, 10 mL, intravenous, PRN AND sodium chloride, 20 mL, intravenous, PRN sodium citrate, 1.6 mL, intravenous, Q96H sodium citrate, 1.6 mL, intravenous, Q96H tamsulosin, 0.4 mg, oral, Daily topiramate, 200 mg, nasogastric, BID Thank you for allowing us to participate in the care of this patient. Please call with questions. TIMOTEO Smart This note was completed using a voice mailing jogger system. Every effort was made to ensure accuracy. However, inadvertent computerized mailing jogger errors may be present. TIMOTEO Peña 03/24/25 1053 ITanna MD, personally performed [id number] diagnostic evaluation on this patient I reviewed and performed all the darby component of the patient visit I reviewed SUGAR history, exam and MDM - Tanna Josue MD 03/24/25 11:17 AM * Lorena Hall MD - 03/24/2025 6:51 AM EST [facility] Teaching GI Service Consult Gastroenterology/Hepatology Progress Note IDENTIFYING DATA PATIENT: Timmy Muñoz ADMIT DATE: 03/16/2025 TIME OF EVALUATION: 03/24/2025 6:51 AM HOSPITAL STAY: LOS: 8 days REASON FOR HOSPITALIZATION: Septic shock SUBJECTIVE/INTERVAL HISTORY Timmy Muñoz's overnight events were reviewed. Patient's hemoglobin has been stable for the past 2 days. He is started back on anticoagulation. Patient had 1 bowel movement yesterday morning which was brown, no black or tarry stool reported. OBJECTIVE MEDICATIONS SCHEDULED: @MEDSCURRENTMD@ PRNs: acetaminophen, 650 mg, Q6H PRN calcium gluconate, 1,000 mg, PRN Or calcium gluconate, 2,000 mg, PRN ipratropium-albuteroL, 3 mL, Q6H PRN magnesium sulfate, 2,000 mg, PRN melatonin, 5 mg, Nightly PRN midodrine, 5 mg, PRN oxyCODONE, 5 mg, Q4H PRN Or oxyCODONE, 10 mg, Q4H PRN sodium chloride, 10 mL, PRN And sodium chloride, 20 mL, PRN sodium chloride, 10 mL, PRN sodium chloride, 10 mL, PRN sodium chloride, 10 mL, PRN sodium chloride, 10 mL, PRN sodium citrate, 1.6 mL, PRN sodium citrate, 1.6 mL, PRN sodium phosphate IV, 20 mmol, PRN Or sodium phosphate IV - central line, 20 mmol, PRN Physical VITALS: BP 145/77 Pulse 73 Temp 36.6 ??C (97.8 ??F) (Oral) Resp 19 Ht 170.2 cm (5' 7 ) Wt81.7 kg (180 lb 1.9 oz) SpO2 98% BMI 28.21 kg/m?? GEN: alert and oriented x3, NAD HEENT: No lymphadenopathy, normal appearance of eyes, ears, nose, trachea midline CV: RRR, no murmur, no edema PULM: CTAB ABD: soft, non-tender, non-distended, +BS, no hernias Neuro: PERRLA, CN intact, no overt deficits Skin: No rashes, erythema, or bruising Lymph: No enlarged LN Psych: normal affect, normal mentation LABS AND IMAGING CBC: Lab Results Component Value Date WBC 4.5 03/24/2025 HGB 7.4 (L) 03/24/2025 HCT 21.9 (L) 03/24/2025 MCV 94 03/24/2025 RDW 18.5 (H) 03/24/2025 RDW 13.9 07/12/2012 PLT 224 03/24/2025 CMP: Lab Results Component Value Date K 4.6 03/23/2025 CL 112 (H) 03/23/2025 CL 108 07/12/2012 CO2 24 03/23/2025 BUN 42 (H) 03/23/2025 GLU 173 (H) 03/23/2025 GLU 180 (H) 03/17/2025 GLU 161 (H) 07/12/2012 IMAGING: ASSESSMENT AND PLAN Timmy Muñoz is a 70 y.o. 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 Patient was found to have septic shock likely secondary to Enterococcus UTI. On 03/22, patient's hemoglobin dropped to 6.8. GI consulted for GI bleed. Assessment: Acute on chronic anemia, no overt GI bleeding On 03/22, patient's hemoglobin dropped to 6.8. Baseline hemoglobin is around 9. No overt GI bleeding noted. Patient had a brown bowel movement earlier on 03/22 Patient has acute on chronic anemia likely multifactorial in the setting of sepsis, anemia of chronic disease. Septic shock on admission, resolved Right lower lobe bacterial pneumonia Oropharyngeal dysphagia, on level 4 diet ESRD on hemodialysis Chronic heart failure with reduced ejection fraction Paroxysmal atrial fibrillation status post Maze procedure, on Eliquis Last dose of Eliquis 12/8 p.m. CAD s/p CABG X 4 Brilinta has been on hold this admission due to anemia and history of GI bleeding Sick sinus syndrome s/p pacemaker Type 2 diabetes mellitus BPH Oropharyngeal dysphagia Plan: Continue to monitor hemoglobin, transfuse as clinically indicated. Monitor for overt GI bleeding. Continue Protonix 40 mg twice daily. Okay to continue aspirin Okay to continue anticoagulation as per primary team as patient has had no overt bleeding and hemoglobin has been stable. No urgent endoscopic intervention warranted in the setting of sepsis and no overt GI bleeding. We can consider for outpatient EGD and colonoscopy workup upon resolution of the current issues. If patient's hemoglobin continues to drop or if he develops any overt GI bleeding, we will considerendoscopy. GI will sign off. Please call us with questions. The case will be discussed with the attending physician For Questions please contact us at: [facility] GI Service 7 am to 5pm weekdays in house 5 pm to 7 am or weekends please contact the steam plant operator to page the fellow information assurance analyst Cosigned by Gordon Garrison MD at 03/24/2025 10:56 AM EST Associated attestation - Gordon Garrison MD - 03/24/2025 10:56 AM EST Discussed with fellow, agree with plan. * Maritza Sharma MD - 03/23/2025 5:13 PM EST Images from the original note were not included. [facility] Matt Goncalves, AQUATIC FACILITY MANAGER Nephrology Progress Note Patient Name: Timmy Muñoz : 1955 Date of Service: 03/23/25 PCP: GATO CHA MD Attending Physician: Deana Albert MD Admission Date: 03/16/2025 Length of stay: LOS: 7 days Chief complaint. Chief Complaint Patient presents with Altered Mental Status Reason for Consult: Assessment and Plan. 70-year-old male with a past medical history significant for end-stage renal disease (ESRD) on hemodialysis (Friday, , Friday schedule) since 12/23/2024 at [facility] under the care of Dr. Matt Sharma, chronic systolic heart failure with reduced ejection fraction (HFrEF) of 35%, paroxysmal atrial fibrillation on Eliquis, type 2 diabetes mellitus, and COPD on 2 liters of oxygen at baseline presented to the emergency department with altered mental status on 03/16/2025. The patient was initially at [facility] where a stroke alert was called for left-sided deficit, facial droop, and slurring of speech. CT of the brain was negative for acute pathology. A chest x-ray revealed a right lower lobe infiltrate, and the altered mental status was attributed to an infectious etiology. The patient was started on vancomycin and cefepime. While being transferred to [facility], he developed hypotension, unresponsiveness, and fever, prompting his return to the [facility] ED. There, a right femoral central line was placed, and he was started on vasopressor support with Levophed. He was subsequently transferred to the ICU at this facility for septic shock. Upon arrival in the ICU, he was noted to be alert but confused and not following commands, requiring Levophed. Nephrology consultation was requested for management of ESRD and planning for hemodialysis in thesetting of critical illness. Assessment End stage renal disease (ESRD) on maintenance hemodialysis, Friday, , Friday schedule [facility] under the care of Dr. Matt Sharma. Electrolyte Abnormalities: Stable. Acid-Base status: No significant acidosis or alkalosis. Volume Status: Appears euvolemic. Blood pressure remains on the low side. Net I/O over last 24 hours is -53.84 ml. Hypertension: Home antihypertensives are held due to hypotension. Hemodynamics: History of reduced LVEF EF 35% per last echo on 01/2025. Currently requires vasopressor support for hypotension. Anemia of CKD: Most recent hemoglobin is 7.2 g/dL. CKD-MBD / Renal Osteodystrophy: To be managed as per outpatient protocol. Sepsis secondary to right-sided pneumonia. Septic shock requiring vasopressor support. Acute on chronic hypoxic respiratory failure. COPD on 2L NC at baseline. Acute Metabolic encephalopathy, improving. Heart failure with reduced ejection fraction (HFrEF). Paroxysmal atrial fibrillation on Eliquis. Type 2 diabetes mellitus. Plan Patient refused hemodialysis today , we will plan for hemodialysis tomorrow and will then continue as TTS per his schedule. Loop diuretics for volume management as needed Continue amiodarone Home dose of Entresto spironolactone Imdur Flomax to be resumed as able KG per protocol. Heme/onc and GI following for anemia Pneumonia and respiratory failure management per primary service/ ID Dose all medication to GFR <10 ml/min. Strict ins and outs, renal chemistry, and monitoring in AM. Thank you for this consultation, we will follow along with you regarding care of this patient whilethe patient is here in the hospital, please call if you have any questions or concerns. MARITZA SHARMA MD on 03/23/2025 at 5:14 PM [facility] 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 Schedule : See Blink for iPhone and Android on-call schedule for [facility] ( [facility] ) Nephrology [facility] chat : Available on Blink for iPhone and Android chat during working hours only, if no response please use answering service Perfect serve answering service: [phone], if no response please use utilization reviewer Physician Cell phone Cell Phone for utilization reviewer Physician : Use as back up, available on Blink for iPhone and Android on-call schedule Subjective : Patient is stable seen at bedside, he remains confused This morning patient refused hemodialysis Objective VITALS BP 144/74 Pulse 84 Temp 36.4 ??C (97.6 ??F) (Axillary) Resp 15 Ht 170.2 cm (5' 7 ) Wt 81.5 kg (179 lb 10.8 oz) SpO2 93% BMI 28.14 kg/m?? BMI: Body mass index is 28.14 kg/m??. Weight change: 0 kg (0 lb) Wt Readings from Last 3 Encounters: 03/23/25 81.5 kg (179 lb 10.8 oz) 03/16/25 83 kg (183 lb) 02/28/25 83.4 kg (183 lb 13.8 oz) I/O (24 Hours) Intake/Output Summary (Last 24 hours) at 03/23/2025 1714 Last data filed at 03/23/2025 1534 Gross per 24 hour Intake -- Output 525 ml Net -525 ml General: Awake, alert, he remains confused HEENT: No conjunctival pallor, anicteric sclera. Atraumatic, normocephalic. Moist oral mucosa. Neck: No lymphadenopathy, no JVD. Neck is supple. Cardiovascular: Regular rate and rhythm. S1 and S2 heard. No murmur, rub, or gallop. Dialysis port present in right upper chest. Respiratory: Bilateral air entry clear to auscultation. No wheezes, rhonchi or crackles. No respiratory distress. Abdomen: Soft, non-tender to palpation. Bowel sounds are normal. Extremities: No cyanosis, clubbing, or edema. Neurological: Patient awake, he remains confused, examination grossly nonfocal Skin: No rashes or lesions. Skin is pink, warm, and dry. Psychiatric: No agitation Medications Scheduled Meds: amiodarone, 200 mg, oral, Daily apixaban, 5 mg, oral, BID ARIPiprazole, 10 mg, oral, Daily aspirin, 81 mg, nasogastric, Daily budesonide, 0.5 mg, nebulization, Q12H busPIRone, 15 mg, nasogastric, TID cholecalciferol (vitamin D3), 1,000 Units, nasogastric, Daily cyanocobalamin, 1,000 mcg, nasogastric, Daily DAPTOmycin (CUBICIN) IV, 500 mg, intravenous, Q48H darbepoetin sylwia (ARANESP) injection, 60 mcg, subcutaneous, Weekly DULoxetine, 20 mg, oral, Daily ferrous sulfate, 325 mg, nasogastric, Daily with breakfast gabapentin, 100 mg, oral, TID ipratropium-albuteroL, 3 mL, nebulization, Q6H [COMPLETED] meropenem, 500 mg, intravenous, Once FOLLOWED BY meropenem, 500 mg, intravenous, Q24H metoprolol succinate XL, 12.5 mg, oral, BID pantoprazole, 40 mg, intravenous, Q12H risperiDONE, 3 mg, oral, Nightly rivastigmine, 1 patch, transdermal, Daily sodium chloride, 10 mL, intravenous, Q96H sodium chloride, 10 mL, intravenous, Q96H sodium chloride, 30 mL, intravenous, Q8H AND sodium chloride, 10 mL, intravenous, PRN AND sodium chloride, 20 mL, intravenous, PRN sodium citrate, 1.6 mL, intravenous, Q96H sodium citrate, 1.6 mL, intravenous, Q96H tamsulosin, 0.4 mg, oral, Daily topiramate, 200 mg, nasogastric, BID Continuous Infusions: PRN Meds: acetaminophen calcium gluconate OR calcium gluconate OR [DISCONTINUED] calcium gluconate ipratropium-albuteroL magnesium sulfate OR [DISCONTINUED] magnesium sulfate melatonin midodrine oxyCODONE OR oxyCODONE sodium chloride AND sodium chloride AND sodium chloride sodium chloride sodium chloride sodium chloride sodium chloride sodium citrate sodium citrate sodium phosphate IV OR sodium phosphate IV - central line OR [DISCONTINUED] sod phos di, mono-K phos mono Results Review: Renal Chemistry Results from last 7 days Lab Units 03/23/25 0604 03/22/25 0529 03/21/25 0642 03/19/25 0649 03/18/25 0203 03/17/25 0627 03/17/25 0223 SODIUM mmol/L 145 144 146 140 135 -- 139 POTASSIUM mmol/L 4.6 4.1 4.2 3.9 3.9 < > 3.5 CHLORIDE mmol/L 112* 110* 111* 104 101 -- 105 CO2 mmol/L 24 26 24 27 23 -- 24 BUN mg/dL 42* 37* 46* 34* 52* -- 34* CREATININE mg/dL 2.33* 2.03* 2.39* 2.23* 3.33* -- 2.28* CALCIUM mg/dL 9.1 8.8 9.3 9.0 8.8 -- 8.3* MAGNESIUM mg/dL 2.0 2.0 2.1 -- -- -- 1.7* < > = values in this interval not displayed. Hepatic: Lab Results Component Value Date AST 8 03/23/2025 AST 10 03/22/2025 AST 8 03/21/2025 ALT 5 03/23/2025 ALT 7 03/22/2025 ALT 8 03/21/2025 ALKPHOS 156 (H) 03/23/2025 ALKPHOS 151 (H) 03/22/2025 ALKPHOS 154 (H) 03/21/2025 BNP Lab Results Component Value Date BNP 951 (H) 03/16/2025 Albumin: Lab Results Component Value Date ALBUMIN 3.2 03/23/2025 CBC Results from last 7 days Lab Units 03/23/25 1515 03/23/25 0604 03/22/25 1652 03/22/25 1324 03/22/25 0529 03/21/25 0642 03/19/25 0649 03/18/25 0503 03/18/25 0203 WBC 10^9/L -- 4.9 -- -- 4.3 4.7 4.3 -- 4.6 HEMOGLOBIN g/dL 7.4* 7.4* 7.6* 8.0* 6.8* 7.4* 7.9* < > 7.2* HEMATOCRIT % 21.9* 21.7* 22.5* 23.2* 20.1* 21.8* 23.8* -- 21.6* PLATELETS 10^9/L -- 212 -- -- 190 165 118* -- 109* < > = values in this interval not displayed. Results from last 7 days Lab Units 03/23/25 0604 03/22/25 0529 03/21/25 0642 03/19/25 0649 03/18/25 0203 GLUCOSE mg/dL 173* 122* 144* 126* 166* Urine Studies: Lab Results Component Value Date COLOR Yellow 03/15/2025 TURBIDITY Clear 03/15/2025 SPECIFICGRA 1.015 03/15/2025 SPECIFICGRA 1.020 07/12/2012 NITRITE Negative 03/15/2025 PHURINE 7.0 03/15/2025 LEUKOCYTE Negative 03/15/2025 LEUKOCYTE Negative 07/12/2012 PROTEIN 100 mg/dL (A) 03/15/2025 KETONES Negative 03/15/2025 UROBILINOGEN 1.0 eu/dL 03/15/2025 UROBILINOGEN 0.2 07/12/2012 BLOODHGB Moderate (A) 03/15/2025 No results found for: URINECREATI , PROTUR , MICROALBUR , MICRAU No results found for: UPROCRTRAT , ALBCREATRA Urine Sodium: No components found for: TRAVIS Urine Potassium: No results found for: KUR Urine Chloride: No results found for: CLUR Urine Osmolarity: No components found for: OSMOU Urine Creatinine: No results found for: LABCREA Urine Eosinophils: No components found for: UEOS Urine Protein: No components found for: TPU Immunology Profile Lab Results Component Value Date CRP 1.6 (H) 02/25/2025 No results found for: HAV , HEPAIGM , HEPBIGM , HEPBCAB , HBEAG , HEPCAB SARITA: No results found for: SARITA C3:No results found for: C3 C4:No results found for: C4 MPO ANCA: No results found for: MPO PR3 ANCA: No components found for: PR3 hepatitis serologies ANTIGBM:No components found for: GBMABIGG HEPATITIS B SURFACE AG: Lab Results Component Value Date HEPBSAG Non-Reactive 02/25/2025 HEPATITIS C AB: No results found for: HEPCAB Electrophoresis: SPEP:No results found for: PROT , LABALPH , LABBETA , PATH UPEP:No results found for: LABPE Anemia Profile Lab Results Component Value Date WBC 4.9 03/23/2025 WBC 4.3 03/22/2025 HGB 7.4 (L) 03/23/2025 HGB 7.4 (L) 03/23/2025 HCT 21.9 (L) 03/23/2025 HCT 21.7 (L) 03/23/2025 PLT 212 03/23/2025 PLT 190 03/22/2025 Lab Results Component Value Date IRONSAT 25 03/22/2025 IRONSAT 30 02/25/2025 FERRITIN 849 (H) 03/22/2025 FERRITIN 551 (H) 02/25/2025 [id number] 507 03/22/2025 [id number] 226 02/25/2025 FOLATE 17.6 03/22/2025 FOLATE >25.0 02/25/2025 Bone Mineral Profile No results found for: PTH Echocardiogram: Echo complete W/3D Recon Independ wkstn Result Date: 02/01/2025 1 1 [facility] Heart Station [address] [place] [address] [phone] (fax) Echocardiogram-[facility] Name: TIMMY MUÑOZ Study Date: 02/01/2025 04:09 PM B/P: 144 mmHg/65 mmHg HR: 72 bpm Date of : 1955 Location: [facility] Height: 67 in. Age: 69 year(s) Patient Room: 3135 Weight: 210 lb. Gender: Male Patient Status: InPt BSA: 2.06 m2 Indication: Arrhythmia, Ischemic cardiomyopathy, CHF with low EF, Atrial Fibrillation, H/O NSTEMI, H/O ETOH abuse Examination: Echocardiogram (Complete), Lumason Contrast Image Quality: Fair Patient Consent: Procedure explained to patient Exam Details Contrast: I.V. dose of LumasonConclusions Left Ventricle: The left ventricle is normal size. Global left ventricular systolic function is moderately reduced. The EF is 35 % visually. Left ventricular wall thickness is mildly increased. Regional wall motion abnormalities (see diagram). Grade 3, severe diastolic dysfunction (reversible restrictive LV filling pattern). Right Ventricle: The right ventricle is mildly enlarged. Right ventricular systolic function appears reduced. Doppler studies suggest severely elevated right sided pressures. Left Atrium: The left atrium is moderately enlarged. Right Atrium: The right atrium is moderately enlarged. Mitral Valve: Mild to moderate mitral regurgitation. Aortic Valve: Trivial aortic valve regurgitation. Tricuspid Valve: Moderate tricuspid regurgitation. Aorta: The aortic root exhibits mild dilatation. Overall Conclusions: Due to suboptimal imaging Lumason contrast was administered for opacification and better delineation of endocardial borders. Measurements Left Ventricle Label Value Normal Value LVOTd 2.2 cm (19cm - 21cm) LVOT VTI 19.3 cm (18cm - 22cm) LVOT PGmax 4 mmHgLVEF visual 35 % LVDd, 2D 5.41 cm (4.2cm - 5.9cm) LVDs, 2D 4.04 cm (2.1cm - 4cm) IVSd, 2D 1.44 cm (0.6cm - 1.1cm) LVPWd, 2D 1.24 cm (0.6cm - 1cm) LV Mass, 2D ASE 309.38 g LV Mass Index, 2D ASE 150.2 g/m?? (50g/m?? - 102.4g/m??) RWT, MM 0.46 (0 - 0.42) LVSVI, 2D 34 ml/m2 LVOT PGmean 2 mmHg LVSV_LVOT73 ml Right Ventricle Label Value Normal Value RVDd, 2D 4.42 cm (1.9cm - 3.8cm) TAPSE 1.5 cm Left Atrium Label Value Normal Value LA Volume, BP 96 ml (18ml - 58ml) LADs, 2D 4.5 cm (3cm - 4cm) LAESV index, BP 46.6 ml/m?? Right Atrium Label Value Normal Value RA Area 28 cm?? Aortic Valve Label Value Normal Value AV DVI 0.58 AV VTI 35.1 cm Mitral Valve Label Value Normal Value MV E Vmax 1.19 m/s MV A Vmax 0.51 m/s MV E/A 2.33 MV E/E' lateral 14.4 MV E' lateral 0.08 m/s Tricuspid Valve Label Value Normal Value RA Pressure 8 mmHg RVSP 69 mmHg TR Vmax 3.89 m/s Aorta Label Value Normal Value AoRoot,2D 3.9 cm (1.4cm - 3.8cm) Great Vessels Label Value Normal Value IVC 2.6 cm (1.2cm - 2.3cm) Valvular Assessment LVOT 0.7 - 1.1 m/sec Aortic Valve 1.0 - 1.7 m/sec Mitral Valve 0.6 - 1.3 m/sec Tricuspid Valve 0.3 - 0.7 m/sec Pulmonic Valve 0.6 - 0.9 m/sec Regurgitation Trivial MildMod Moderate Trivial Stenosis No No No No Max Velocity 1.05 m/sec 1.82 m/s 1.19 m/sec Max Gradient 13.00 mmHg Mean Gradient 7.00 mmHg Valve Area 2.2 cm?? Findings Left Ventricle: The left ventricle is normal size. Global left ventricular systolic function is moderately reduced. The EF is 35 % visually. Left ventricular wall thickness is mildly increased. Regional wall motion abnormalities (see diagram). The basal anterior, basal anteroseptal, basal inferoseptal, basal inferior, mid anterior, mid anteroseptal, mid i nferoseptal, mid inferior, apical anterior, apical septal, apical inferior and apex left ventricular wall segments are hypokinetic. All remaining scored left ventricular wall segments are with no wall motion abnormalities. Grade 3, severe diastolic dysfunction (reversible restrictive LV filling pattern). No thrombus is identified in the left ventricle. Right Ventricle: The right ventricle is mildly enlarged. Right ventricular systolic function appears reduced. A pacemaker wire is seen in the right atrium and right ventricle. Doppler studies suggest severely elevated right sided pressures. Left Atrium: The left atrium is moderately enlarged. Right Atrium: The right atrium is moderately enlarged. Mitral Valve: There is nonspecific thickening of the mitral valve leaflet. Mild to moderate mitral regurgitation. No mitral valve stenosis. Aortic Valve: Aortic valve is tri-leaflet. Trivial aortic valve regurgitation. No aortic valve stenosis. Aortic leaflets exhibit mild calcification. Tricuspid Valve: Tricuspid valve appears normal. Moderate tricuspid regurgitation. No tricuspid valve stenosis. Pulmonic Valve: Pulmonary valve appears normal. Trivial pulmonary regurgitation. No pulmonic valve stenosis. Aorta: The aortic root exhibits mild dilatation. Great Vessels: IVC: The IVC is dilated. Respiratory inspiration greater than 50%. Pericardium: No pericardial effusion. Procedure Staff Reading Group: [facility] Referring Physician: JOE LONG Grease Man: PRACHI Baires Ordering Physician: RODOLFO MOORE Wall Motion Scores -1 - hyperkinesia, 0 - not evaluated, 1 - normal, 2 - hypokinesia, 3 - akinesia, 4 - dyskinesia Echo congenital limited W/O contrast Result Date: 12/22/2024 Left Ventricle: Severely reduced left ventricular systolic function with a visually estimated EF of15 - 20%. EF by visual approximation is 20%. Left ventricle size is normal. Moderately increased wall thickness. See diagram for wall motion findings. Normal diastolic function. Right Ventricle: Right ventricle size is normal. Lead present in the right ventricle. Normal systolic function. Aortic Valve: Mildly calcified cusps. Mitral Valve: Mildly thickened leaflets. Moderate regurgitation. Tricuspid Valve: Moderate to severe regurgitation. Severely elevated RVSP, consistent with severe pulmonary hypertension. RVSP is 75 mmHg. Image quality is adequate. Contrast used: Lumason. Left Ventricle Severely reduced left ventricular systolic function with a visually estimated EF of 15 - 20%. EF by visual approximation is 20%. Left ventricle size is normal. Moderately increased wall thickness. See diagram for wall motion findings. Normal diastolic function. Right Ventricle Right ventricle size isnormal. Lead present in the right ventricle. Normal systolic function. Left Atrium Left atrium sizeis normal. Right Atrium Lead present in the right atrium. Right atrium size is normal. IVC/SVC IVC diameter is dilated and decreases less than 50% during inspiration; therefore the estimated right atrial pressure is elevated (~15 mmHg). IVC size is normal. Mitral Valve Mildly thickened leaflets. Moderate regurgitation. No stenosis noted. Tricuspid Valve Valve structure is normal. Moderate to severe regurgitation. No stenosis noted. Severely elevated RVSP, consistent with severe pulmonary hypertension. RVSP is 75 mmHg. Aortic Valve Mildly calcified cusps. No regurgitation. No stenosis. Pulmonic Valve The pulmonic valve visualization is suboptimal but appears to be functioning normally. Physiologically normal regurgitation. No stenosis noted. Ascending Aorta Normal sized aortic root and ascending aorta. Pericardium No pericardial effusion. Septum No interatrial shunt visualized with colorDoppler. Study Details Image quality: adequate. Heart rate was 66 bpm. The underlying ECG rhythm was sinus rhythm. Cardiac history: PPM/AICD. Color flow Doppler was performed and pulse wave and/or continuous wave Doppler was performed. Lumason contrast was given to enhance imaging. Wall Scoring Baseline Score Index: 1.76 The following segments are akinetic: basal inferoseptal, basal inferior, mid inferoseptal and apical septal. The following segments are hypokinetic: basal anteroseptal, mid anteroseptal, mid inferior, apical inferior and apex. All other segments are normal. Echo complete W/3D Recon Independ wkstn Result Date: 07/08/2024 1 1 [facility] Heart Station [address] [place] [address] [phone] (fax) Echocardiogram-[facility] Name: TIMMY MUÑOZ Study Date: 07/08/2024 12:08 PM B/P: 132 mmHg/68 mmHg HR: Date of : 1955 Location: [facility] Height: 67 in. Age: 69 year(s) Patient Room: 3135 Weight: 230 lb. Gender: Male Patient Status: InPt BSA: 2.15 m2 Indication: CHF with low ejection fraction Examination: Echocardiogram (Complete), Lumason Contrast Image Quality: Fair Patient Consent: Procedure explained to patient Conclusions Left Ventricle: The left ventricle is normal size. Global left ventricular systolic function is severely reduced. The EF is 10 % visually. Left ventricular wall thickness is normal. Diffuse global hypokinesis.Right Ventricle: The right ventricle is enlarged. Right ventricular systolic function appears reduced. Doppler studies suggest moderately elevated right sided pressures (elevated pulmonary pressure).Left Atrium: The left atrium is moderately enlarged. Right Atrium: The right atrium is moderately enlarged. Mitral Valve: Mild mitral regurgitation. Tricuspid Valve: Moderate tricuspid regurgitation.Great Vessels: IVC: The IVC is dilated. There is no inspiratory collapse of the IVC. Overall Conclusions: Due to suboptimal imaging Lumason contrast was administered for opacification and better delineation of endocardial borders. Measurements Left Ventricle Label Value Normal Value LVOT VTI 10.5 cm (18cm - 22cm) LVOT PGmax 1 mmHg LVEF visual 10 % LVDd, 2D 5.28 cm (4.2cm - 5.9cm) LVDs, 2D 4.62 cm(2.1cm - 4cm) IVSd, 2D 1.33 cm (0.6cm - 1.1cm) LVPWd, 2D 1.07 cm (0.6cm - 1cm) LV Mass, 2D ASE 255.01 g LV Mass Index, 2D ASE 118.6 g/m?? (50g/m?? - 102.4g/m??) RWT, MM 0.41 (0 - 0.42) LVSVI, 2D 16.7ml/m2 LVOT PGmean 1 mmHg Right Ventricle Label Value Normal Value RVDd, 2D 4.59 cm (1.9cm - 3.8cm) TAPSE 0.78 cm Left Atrium Label Value Normal Value LA Volume, BP 87 ml (18ml - 58ml) LAESV index, BP40.5 ml/m?? Right Atrium Label Value Normal Value RA Area 24.2 cm?? Aortic Valve Label Value NormalValue AV DVI 0.44 AV VTI 21.7 cm Mitral Valve Label Value Normal Value MV E' lateral 0.08 m/s Tricuspid Valve Label Value Normal Value RA Pressure 15 mmHg RVSP 47 mmHg TR Vmax 2.82 m/s Aorta Label Value Normal Value AoRoot, 2D 3.8 cm (1.4cm - 3.8cm) Valvular Assessment LVOT 0.7 - 1.1 m/sec Aortic Valve 1.0 - 1.7 m/sec Mitral Valve 0.6 - 1.3 m/sec Tricuspid Valve 0.3 - 0.7 m/sec Pulmonic Valve 0.6- 0.9 m/sec Regurgitation No Mild Moderate Trivial Max Velocity 0.57 m/sec 1.30 m/s 0.84 m/s Max Gradient 7.00 mmHg 3.00 mmHg Mean Gradient 3.00 mmHg Findings Left Ventricle: The left ventricle is normal size. Global left ventricular systolic function is severely reduced. The EF is 10 % visually. Left ventricular wall thickness is normal. Diffuse global hypokinesis. Right Ventricle: The right ventricle is enlarged. Right ventricular systolic function appears reduced. Doppler studies suggest moderately elevated right sided pressures (elevated pulmonary pressure). Left Atrium: The left atrium is moderately enlarged. Right Atrium: The right atrium is moderately enlarged. Mitral Valve: There isnonspecific thickening of the mitral valve leaflet. Mild mitral regurgitation. Aortic Valve: Focal aortic cusp thickening is noted. No aortic valve regurgitation. Tricuspid Valve: Normal tricuspid valve. Moderate tricuspid regurgitation. Pulmonic Valve: Normal pulmonary valve. Trivial pulmonary regurgitation. Aorta: The aortic root exhibits normal size. Great Vessels: IVC: The IVC is dilated. There is no inspiratory collapse of the IVC. Pericardium: No pericardial effusion. Procedure Staff Reading Group: [facility] Grease Man: Morena Green RDCS Ordering Physician: PIERRE AKINS Echo congenital limited W/O contrast Result Date: 01/26/2024 Left Ventricle: Moderately reduced left ventricular systolic function with a visually estimated EF of 35 - 40%. EF by 2D Simpsons Biplane is 36%. Left ventricle size is normal. Mild posterior thickening. Moderate septal thickening. Moderate hypokinesis of the following segments: basal inferior, midinferior and mid inferoseptal. Diastolic function indeterminate in the setting of atrial fibrillation. Right Ventricle: Right ventricle is mildly dilated. Lead present in the right ventricle. Mitral Valve: Moderate regurgitation with a centrally directed jet. Tricuspid Valve: Mild to moderate regurgitation with a centrally directed jet. The estimated RVSP is 87 mmHg. Severely elevated RVSP, consistent with severe pulmonary hypertension. Aorta: Normal sized ascending aorta. Mildly dilated aorticroot. Ao root diameter is 4.1 cm. No previous studies were available for comparison. Left VentricleModerately reduced left ventricular systolic function with a visually estimated EF of 35 - 40%. EF by 2D Simpsons Biplane is 36%. Left ventricle size is normal. Mild posterior thickening. Moderate septal thickening.Moderate hypokinesis of the following segments: basal inferior, mid inferior and midinferoseptal. Diastolic function indeterminate in the setting of atrial fibrillation. Right Ventricle Right ventricle is mildly dilated. Lead present in the right ventricle. Normal systolic function.Left Atrium Left atrium size is normal. Right Atrium Lead present in the right atrium. Right atriumsize is normal. IVC/SVC IVC diameter is less than or equal to 21 mm and decreases greater than 50% during inspiration; therefore the estimated right atrial pressure is normal (~3 mmHg). IVC size is normal. Mitral Valve Valve structure is normal. Moderate regurgitation with a centrally directed jet.No stenosis noted. Tricuspid Valve Valve structure is normal. Mild to moderate regurgitation with acentrally directed jet. The estimated RVSP is 87 mmHg. No stenosis noted. Severely elevated RVSP, consistent with severe pulmonary hypertension. Aortic Valve Valve structure is normal. Trace regurgita tion. No stenosis. Pulmonic Valve The pulmonic valve visualization is suboptimal but appears to be functioning normally. Mild regurgitation. No stenosis noted. Ascending Aorta Normal sized ascending aorta. Mildly dilated aortic root. Ao root diameter is 4.1 cm. Pericardium No pericardial effusion. Pulmonary Artery Main pulmonary artery is mildly dilated. Study Details Image quality: adequate. No contrast was given. Echo limited W/O contrast Result Date: 04/08/2023 APPROVED REPORT Conclusion Mild left ventricular enlargement Mild concentric LVH Mild to moderate global LV systolic dysfunction with no obvious segmental wall motion abnormalities-ejection fraction 40% Grossly normal right-sided chamber dimensions Trileaflet aortic valve with mild calcification but no stenosis Grossly normal mitral valve No pericardial effusion Left Ventricle Left ventricle is mildly dilated. Mild to moderate overall LV systolic dysfunction with no major discrete wall motion abnormalities Borderline concentric left ventricular hypertrophy. General global hypokinesis The diastolic function was not assessed. LVEF is 40%. Right Ventricle The right ventricle is normal size. Right ventricular systolic function could not be assessed. Atria Left atrium is borderline dilated. The right atrium size is normal. The right atrium size is normal. Aortic Valve Trileaflet valve with mild fibrocalcific changes and normal opening in systole The aortic valve is normal in structure. There is no aortic valvular stenosis. Tricuspid Valve The tricuspid valve is normal in structure. Pulmonic Valve Pulmonic valve is not well visualized. Great Vessels The aortic root is normal in size. The IVC was not visualized. Pericardium There is no pericardial effusion. EXAM: Limited 2D Echocardiogram Imaging system used: Bee Resilient 2D Dimensions LVDd 5.5 cm M: 4.2 - 5.8 LVEF (Roberts's) 47.11 % M: 52 - 72 LVDs 4.58 cm M: 2.5 - 4.0 EF AP4-a2DQ 41.12 % EF AP2-a2DQ 50.69 %EF BP-a2DQ 47.11 % LVESV 89 mL LVEDV 167.48 mL M: 62 - 150 LV Volume Index 72.50 mL/m2 M: 34 - 74 Thank you for the consultation. Please do not hesitate to contact us for any further questions/concerns. We will continue to follow along with you. * Deana Albert MD - 03/23/2025 4:29 PM EST [facility] 03/23/2025 Hospital Day: 8 Patient Name: Timmy Muñoz : 1955 ASSESSMENT Septic shock present on admission-resolved Acute metabolic encephalopathy in setting of sepsis. History of dementia on rivastigmine. And history of schizoaffective/bipolar Acute on chronic respiratory failure with hypoxia-resolved. Currently on room air. Previously notedto use 2 L/min nasal cannula at baseline Right lower lobe bacterial pneumonia Enterococcus UTI Acute on chronic anemia. Concern for GI bleed with positive fecal occult on anemia of chronic disease. Oropharyngeal dysphagia on level 4 pureed diet and no liquids. Per chart review patient refusing PEG tube placement. COPD on home oxygen-no exacerbation ESRD on hemodialysis MWF Chronic systolic heart failure with no exacerbation Paroxysmal atrial fibrillation status post Maze on Eliquis Coronary artery disease status post CABG and stent. Brilinta on hold for history of GI bleed and anemia Chronic thrombocytopenia Sick sinus syndrome status post pacemaker Diabetes mellitus type 2 BPH on [facility] delirium PLAN Daptomycin and meropenem per infectious disease CT abdomen pelvis right basilar infiltrate underlying lesion not excluded and continued follow up recommended. Large left inguinal hernia extending in the scrotum without definitive obstruction or findings of acute ischemia. Large left inguinal hernia also noted on CT abdomen and pelvis 03/12/2024. Continue to trend H&H . Monitor for overt evidence of GI bleeding. Appreciate gastroenterology recommendations okay to continue anticoagulation as long as no overt GIbleed Per GI. No urgent endoscopic intervention warranted and to considering outpatient EGD/colonoscopy. Currently no liquid diet. Repeat swallow study Nebulizers prn Cardiology following. Toprol increased to 12.5 mg b.I.d.. Continue amiodarone 200 mg. PT/OT Delirium precautions Patient was agitated this morning and declined hemodialysis DVT prophylaxis: SCDs, On Eliquis Discharge planning: SNF Subjective SUBJECTIVE Patient was evaluated at bedside. He is irritable and tells me to get out . Discussed with MISTY tineo. Patient had declined oral medications and declined dialysis. Noted dialysis rescheduled for tomorrow. Objective OBJECTIVE Physical Exam: General appearance: alert, agitated HEENT: atraumatic, EOM intact, no erythema Lungs: clear to auscultation bilaterally, no use of accessory muscles Heart: RRR, normal S1 and S2, no murmurs Abdomen: soft, non-distended, non-tender, normoactive bowel sounds Extremities: no edema, no rash Neurologic: no focal deficits Vital Signs: Temp: [36.3 ??C (97.4 ??F)-36.4 ??C (97.6 ??F)] 36.4 ??C (97.6 ??F) Pulse: [65-84] 84 Resp: [12-26] 15 BP: (135-144)/(74-82) 144/74 SpO2: [92 %-100 %] 93 % O2 Device: None (Room air) O2 Flow Rate (L/min): [0 L/min] 0 L/min Weight: Body mass index is 28.14 kg/m??. Admission weight: 86.5 kg (190 lb 11.2 oz) Wt Readings from Last 3 Encounters: 03/23/25 81.5 kg (179 lb 10.8 oz) 03/16/25 83 kg (183 lb) 02/28/25 83.4 kg (183 lb 13.8 oz) Input/Output: Intake/Output Summary (Last 24 hours) at 03/23/2025 1629 Last data filed at 03/23/2025 1534 Gross per 24 hour Intake -- Output 525 ml Net -525 ml Labs/Imaging: Recent Results (from the past 24 hours) Hemoglobin and hematocrit, blood Collection Time: 03/22/25 4:52 PM Result Value Ref Range Hemoglobin 7.6 (L) 13 - 17 g/dL Hematocrit 22.5 (L) 39 - 50 % Comprehensive metabolic panel Collection Time: 03/23/25 6:04 AM Result Value Ref Range SODIUM 145 134 - 146 mmol/L POTASSIUM 4.6 3.5 - 5.0 mmol/L CHLORIDE 112 (H) 98 - 109 mmol/L CARBON DIOXIDE 24 22 - 32 mmol/L ANION GAP 9 5 - 15 mmol/L BLOOD UREA NITROGEN 42 (H) 5 - 27 mg/dL CREATININE 2.33 (H) 0.60 - 1.30 mg/dL GLUCOSE 173 (H) 65 - 99 mg/dL CALCIUM 9.1 8.5 - 10.5 mg/dL TOTAL PROTEIN 6.1 6.0 - 8.0 g/dL ALBUMIN 3.2 3.2 - 5.3 g/dL ALKALINE PHOSPHATASE 156 (H) 39 - 130 U/L AST 8 <=41 U/L ALT 5 <=40 U/L BILIRUBIN,TOTAL 0.6 0.3 - 1.2 mg/dL EGFR Non-Race Dependent 29 (L) >=60 ml/min/1.73sq.m CBC auto differential Collection Time: 03/23/25 6:04 AM Result Value Ref Range WBC 4.9 4 - 11 10^9/L RBC Count 2.31 (L) 4.1 - 5.7 10^12/L Hemoglobin 7.4 (L) 13 - 17 g/dL Hematocrit 21.7 (L) 39 - 50 % MCV 94 80 - 100 fL MCH 32.1 27 - 34 pg MCHC 34.1 32 - 36 g/dL RDW 18.6 (H) 11.5 - 15 % Platelet Count 212 150 - 450 10^9/L MPV 7.3 7 - 12 fL Neutrophils % 66.3 % Lymphocytes % 15.9 % Monocytes % 9.1 % Eosinophils % 7.5 % Basophils % 1.2 % Neutrophils Absolute (A) 3.3 1.5 - 6.6 10^9/L Lymphocytes Absolute 0.8 (L) 1.0 - 3.5 10^9/L Monocytes Absolute 0.4 0.0 - 0.9 10^9/L Eosinophils Absolute 0.4 0.0 - 0.4 10^9/L Basophils Absolute 0.1 0.0 - 0.2 10^9/L Differential Type AUTOMATED DIFFERENTIAL Magnesium Collection Time: 03/23/25 6:04 AM Result Value Ref Range MAGNESIUM 2.0 1.8 - 2.6 mg/dL Hemoglobin and hematocrit, blood Collection Time: 03/23/25 3:15 PM Result Value Ref Range Hemoglobin 7.4 (L) 13 - 17 g/dL Hematocrit 21.9 (L) 39 - 50 % All available laboratory, imaging, and microbiology data has been personally reviewed in detail, and accessible in full per EMR. Medications: amiodarone, 200 mg, oral, Daily ARIPiprazole, 10 mg, oral, Daily aspirin, 81 mg, nasogastric, Daily budesonide, 0.5 mg, nebulization, Q12H busPIRone, 15 mg, nasogastric, TID cholecalciferol (vitamin D3), 1,000 Units, nasogastric, Daily cyanocobalamin, 1,000 mcg, nasogastric, Daily DAPTOmycin (CUBICIN) IV, 500 mg, intravenous, Q48H darbepoetin sylwia (ARANESP) injection, 60 mcg, subcutaneous, Weekly DULoxetine, 20 mg, oral, Daily ferrous sulfate, 325 mg, nasogastric, Daily with breakfast gabapentin, 100 mg, oral, TID ipratropium-albuteroL, 3 mL, nebulization, Q6H [COMPLETED] meropenem, 500 mg, intravenous, Once FOLLOWED BY meropenem, 500 mg, intravenous, Q24H metoprolol succinate XL, 12.5 mg, oral, BID pantoprazole, 40 mg, intravenous, Q12H risperiDONE, 3 mg, oral, Nightly rivastigmine, 1 patch, transdermal, Daily sodium chloride, 10 mL, intravenous, Q96H sodium chloride, 10 mL, intravenous, Q96H sodium chloride, 30 mL, intravenous, Q8H AND sodium chloride, 10 mL, intravenous, PRN AND sodium chloride, 20 mL, intravenous, PRN sodium citrate, 1.6 mL, intravenous, Q96H sodium citrate, 1.6 mL, intravenous, Q96H tamsulosin, 0.4 mg, oral, Daily topiramate, 200 mg, nasogastric, BID acetaminophen calcium gluconate OR calcium gluconate OR [DISCONTINUED] calcium gluconate ipratropium-albuteroL magnesium sulfate OR [DISCONTINUED] magnesium sulfate melatonin midodrine oxyCODONE OR oxyCODONE sodium chloride AND sodium chloride AND sodium chloride sodium chloride sodium chloride sodium chloride sodium chloride sodium citrate sodium citrate sodium phosphate IV OR sodium phosphate IV - central line OR [DISCONTINUED] sod phos di, mono-K phos mono Deana Albert MD * Tanna Josue MD - 03/23/2025 8:42 AM EST [facility] - Daily Progress Note Timmy Muñoz Admission date/time 03/16/2025 5:16 AM Today's Date and Time: 03/23/2025, 8:42 AM Impression : Sepsis Fever Aspiration pneumonia Right basilar infiltrate Right pleural effusion Enterococcus UTI History of ESBL E coli UTI February 2025 Altered mental status COPD CAD status post stenting and CABG Ischemic cardiomyopathy Heart failure with reduced ejection fraction AFib on Eliquis Hypertension End-stage renal disease on hemodialysis Type 2 diabetes mellitus Anemia Thrombocytopenia Prolonged QTC Recommendations: CT abdomen pelvis without contrast 03/22/2025: IMPRESSION: Large left inguinal hernia extending into the scrotum containing a large and small bowel without definite obstruction or findings of acute ischemia. Close follow-up recommended. Right basilar infiltrate suggestive of pneumonia but not completely imaged on this study. An underlying lesion is not excluded and follow-up is recommended. Moderate right pleural effusion. ECG 03/22/2025: Prolonged QTC of 517 ck 25 Cultures Blood cultures x2 03/19/2025 in process Blood cultures x2 03/16/25 finalized with no growth. MRSA PCR 03/16/2025 finalized negative Respiratory pathogen panel 03/16/2025 final negative Urine culture 03/15/2025 positive for Enterococcus Blood cultures x2 03/15/2025 negative Previous admission Urine culture 02/24/2025 positive for ESBL E coli. Antibiotics Continue daptomycin and meropenem tentatively until March 23 No statins while on daptomycin Check and monitor CK level Nephrology and palliative medicine on consult Follow-up WBC platelets creatinine LFT ID clinic in 2-3 weeks Supportive care FOLLOW UP/chief complaints Aspiration pneumonia, Enterococcus UTI Interval History: The patient was seen resting in bed. He is trying to eat breakfast, although no food or tray is in front of him. Patient redirected. Afebrile. Denies nausea, vomiting, diarrhea, itch, rash. ROS: Negative except as above Social History: Social History Socioeconomic History Marital status: Single Spouse name: Not on file Number of children: Not on file Years of education: Not on file Highest education level: Not on file Occupational History Not on file Tobacco Use Smoking status: Never Smokeless tobacco: Never Tobacco comments: 02/25 TEO - AMS, unable to reach family. Per [place] pt does not have history of smoking on file with them Vaping Use Vaping status: Unknown Substance and Sexual Activity Alcohol use: Defer Comment: 02/25 TEO - AMS, unable to reach family. Drug use: Not on file Comment: 02/25 TEO - AMS, unable to reach family. Sexual activity: Not on file Other Topics Concern Not on file Social History Narrative Not on file Social Drivers of Health Financial Resource Strain: Low Risk (01/31/2025) Received from [facility] Overall Financial Resource Strain (CARDIA) Difficulty of Paying Living Expenses: Not hard at all Food Insecurity: No Food Insecurity (03/19/2025) Hunger Screening Food Insecurity - Worry: Never True Food Insecurity - Inability: Never True Transportation Needs: No Transportation Needs (02/25/2025) PRAPARE - Transportation Lack of Transportation (Medical): No Lack of Transportation (Non-Medical): No Physical Activity: Not on file Stress: Not on file Social Connections: Not on file Interpersonal Safety: Patient Unable To Answer (02/25/2025) Humiliation, Afraid, Rape, and Kick questionnaire Fear of Current or Ex-Partner: Patient unable to answer Emotionally Abused: Patient unable to answer Physically Abused: Patient unable to answer Sexually Abused: Patient unable to answer Housing Instability: Low Risk (02/25/2025) Housing Instability Housing Instability: No Family History: Family History Family history unknown: Yes Physical Examination : Vitals: 03/23/25 0314 03/23/25 0500 03/23/25 0727 03/23/25 0839 BP: 144/74 Pulse: 68 72 78 Resp: 17 23 12 Temp: 36.4 ??C (97.6 ??F) TempSrc: Axillary SpO2: 100% 92% Weight: 81.5 kg (179 lb 10.8 oz) Height: Temperature Range: Temp: 36.4 ??C (97.6 ??F) Temp Av.4 ??C (97.5 ??F) Min: 36.1 ??C (96.9 ??F)Max: 36.5 ??C (97.7 ??F) General Appearance: Awake, alert, and in no apparent distress Pulmonary/Chest: Clear to auscultation, without wheezes, rales, or rhonchi Cardiovascular: Regular rate and rhythm without murmurs, rubs, or gallops. Abdomen: soft, non-tender, without masses or organomegaly, normal bowel sounds Extremities: No cyanosis, clubbing, edema, or effusions. Skin:no unusual rash Laboratory data: I have independently reviewed the following labs: Results from last 7 days Lab Units 03/23/25 0604 03/22/25 1652 03/22/25 1324 03/22/25 0529 03/21/25 0642 WBC 10^9/L 4.9 -- -- 4.3 4.7 HEMOGLOBIN g/dL 7.4* 7.6* 8.0* 6.8* 7.4* HEMATOCRIT % 21.7* 22.5* 23.2* 20.1* 21.8* PLATELETS 10^9/L 212 -- -- 190 165 Results from last 7 days Lab Units 03/23/25 0604 03/22/25 0529 03/21/25 0642 POTASSIUM mmol/L 4.6 4.1 4.2 CHLORIDE mmol/L 112* 110* 111* CO2 mmol/L 24 26 24 BUN mg/dL 42* 37* 46* CREATININE mg/dL 2.33* 2.03* 2.39* EGFR (CKD-EPI) NON-RACE DEPENDENT ml/min/1.73sq.m 29* 34* 28* CALCIUM mg/dL 9.1 8.8 9.3 MAGNESIUM mg/dL 2.0 2.0 2.1 Results from last 7 days Lab Units 03/23/25 0604 03/22/25 0529 03/21/25 0642 ALK PHOS U/L 156* 151* 154* ALT U/L 5 7 8 AST U/L 8 10 8 Lab Results Component Value Date CRP 1.6 (H) 02/25/2025 No results found for: SEDRATE Cultures: Microbiology Results Procedure Component Value Units Date/Time Blood culture #1 [[id number]] Collected: 03/19/2549 Specimen: Blood, Venous Updated: 03/23/25 0801 CULTURE RESULTS NO GROWTH 4 DAYS Narrative: Suboptimal volume of blood collected, Results may be affected. Blood culture #2 [[id number]] Collected: 03/19/25 0649 Specimen: Blood, Venous Updated: 03/23/25 0801 CULTURE RESULTS NO GROWTH 4 DAYS Narrative: Suboptimal volume of blood collected, Results may be affected. Blood culture #1 [[id number]] Collected: 03/16/25 1035 Specimen: Blood, Venous Updated: 03/21/25 1101 CULTURE RESULTS NO GROWTH 5 DAYS Narrative: Suboptimal volume of blood collected, Results may be affected. Blood culture #2 [[id number]] Collected: 03/16/25 1035 Specimen: Blood, Venous Updated: 03/21/25 1101 CULTURE RESULTS NO GROWTH 5 DAYS Narrative: Suboptimal volume of blood collected, Results may be affected. Imaging Studies: CT abdomen and pelvis without contrast Result Date: 03/22/2025 Clinical History: Fever. CT abdomen and pelvis without contrast: 03/22/2025 Procedure: Axial images were obtained through the abdomen and pelvis without intravenous contrast. Coronal and sagittal reconstructions were performed. All CT scans at this facility use dose modulation, iterative reconstruction, and/or weight based dosing when appropriate to reduce radiation dose to as low as reasonably achievable. Findings: There is confluent opacity in the right basilar region with a right pleural effusion. Minimal strandy density is present in the left lung base centrally. Noncontrast evaluation of abdominal and retroperitoneal organs is not optimal. No focal hepatic or splenic abnormality is present. There is no pancreatic, adrenal, or biliary abnormality grossly. The patient is postcholecystectomy. . Punctate nonobstructing right superior pole renal calculus is present. There is no hydronephrosis. Renal contours are within normal limits. The ureters and urinary bladder are within normal limits. A moderate of stool is present within the left colon extending to the rectosigmoid region. Enlarged left inguinal hernia contains a large portion of the colon. There is no free intracranial gas or fluid. No mass or mass effect is evident. Moderate calcifications are present within the aorta and iliac vessels. There are degenerative changes through the lower lumbar spine and within the hips. G eographic sclerosis within the superior femoral heads are compatible with avascular necrosis. IMPRESSION: Large left inguinal hernia extending into the scrotum containing a large and small bowel without definite obstruction or findings of acute ischemia. Close follow-up recommended. Right basilar in filtrate suggestive of pneumonia but not completely imaged on this study. An underlying lesion is not excluded and follow-up is recommended. Moderate right pleural effusion. Other chronic appearing findings as described above. Finalized by Lester Morgan MD on 03/22/2025 3:06 PM Medications: amiodarone, 200 mg, oral, Daily ARIPiprazole, 10 mg, oral, Daily aspirin, 81 mg, nasogastric, Daily budesonide, 0.5 mg, nebulization, Q12H busPIRone, 15 mg, nasogastric, TID cholecalciferol (vitamin D3), 1,000 Units, nasogastric, Daily cyanocobalamin, 1,000 mcg, nasogastric, Daily DAPTOmycin (CUBICIN) IV, 500 mg, intravenous, Q48H darbepoetin sylwia (ARANESP) injection, 60 mcg, subcutaneous, Weekly DULoxetine, 20 mg, oral, Daily ferrous sulfate, 325 mg, nasogastric, Daily with breakfast gabapentin, 100 mg, oral, TID ipratropium-albuteroL, 3 mL, nebulization, Q6H [COMPLETED] meropenem, 500 mg, intravenous, Once FOLLOWED BY meropenem, 500 mg, intravenous, Q24H metoprolol succinate XL, 12.5 mg, oral, BID pantoprazole, 40 mg, intravenous, Q12H risperiDONE, 3 mg, oral, Nightly rivastigmine, 1 patch, transdermal, Daily sodium chloride, 10 mL, intravenous, Q96H sodium chloride, 10 mL, intravenous, Q96H sodium chloride, 30 mL, intravenous, Q8H AND sodium chloride, 10 mL, intravenous, PRN AND sodium chloride, 20 mL, intravenous, PRN sodium citrate, 1.6 mL, intravenous, Q96H sodium citrate, 1.6 mL, intravenous, Q96H tamsulosin, 0.4 mg, oral, Daily topiramate, 200 mg, nasogastric, BID Thank you for allowing us to participate in the care of this patient. Please call with questions. TIMOTEO Smart This note was completed using a voice mailing jogger system. Every effort was made to ensure accuracy. However, inadvertent computerized mailing jogger errors may be present. TIMOTEO Peña 03/23/25 0948 ITanna MD, personally performed [id number] diagnostic evaluation on this patient I reviewed and performed all the darby component of the patient visit I reviewed SUGAR history, exam and MDM - Tanna Josue MD 03/23/25 11:03 AM * Maritza Sharma MD - 03/22/2025 5:08 PM EST Images from the original note were not included. [facility] Matt Goncalves CNP Nephrology Progress Note Patient Name: Timmy Muñoz : 1955 Date of Service: 03/22/25 PCP: GATO CHA MD Attending Physician: Deana Albert MD Admission Date: 03/16/2025 Length of stay: LOS: 6 days Chief complaint. Chief Complaint Patient presents with Altered Mental Status Reason for Consult: Assessment and Plan. 70-year-old male with a past medical history significant for end-stage renal disease (ESRD) on hemodialysis (Friday, , Friday schedule) since 12/23/2024 at [facility] under the care of Dr. Matt Sharma, chronic systolic heart failure with reduced ejection fraction (HFrEF) of 35%, paroxysmal atrial fibrillation on Eliquis, type 2 diabetes mellitus, and COPD on 2 liters of oxygen at baseline presented to the emergency department with altered mental status on 03/16/2025. The patient was initially at [facility] where a stroke alert was called for left-sided deficit, facial droop, and slurring of speech. CT of the brain was negative for acute pathology. A chest x-ray revealed a right lower lobe infiltrate, and the altered mental status was attributed to an infectious etiology. The patient was started on vancomycin and cefepime. While being transferred to [facility], he developed hypotension, unresponsiveness, and fever, prompting his return to the [facility] ED. There, a right femoral central line was placed, and he was started on vasopressor support with Levophed. He was subsequently transferred to the ICU at this facility for septic shock. Upon arrival in the ICU, he was noted to be alert but confused and not following commands, requiring Levophed. Nephrology consultation was requested for management of ESRD and planning for hemodialysis in thesetting of critical illness. Assessment End stage renal disease (ESRD) on maintenance hemodialysis, Friday, , Friday schedule [facility] under the care of Dr. Matt Sharma. Electrolyte Abnormalities: Stable. Acid-Base status: No significant acidosis or alkalosis. Volume Status: Appears euvolemic. Blood pressure remains on the low side. Net I/O over last 24 hours is -53.84 ml. Hypertension: Home antihypertensives are held due to hypotension. Hemodynamics: History of reduced LVEF EF 35% per last echo on 01/2025. Currently requires vasopressor support for hypotension. Anemia of CKD: Most recent hemoglobin is 7.2 g/dL. CKD-MBD / Renal Osteodystrophy: To be managed as per outpatient protocol. Sepsis secondary to right-sided pneumonia. Septic shock requiring vasopressor support. Acute on chronic hypoxic respiratory failure. COPD on 2L NC at baseline. Acute Metabolic encephalopathy, improving. Heart failure with reduced ejection fraction (HFrEF). Paroxysmal atrial fibrillation on Eliquis. Type 2 diabetes mellitus. Plan We will plan for another session tomorrow, we will then continue TTS per his schedule. Loop diuretics for volume management as needed Continue amiodarone Home dose of Entresto spironolactone Imdur Flomax to be resumed as able KG per protocol. Heme/onc and GI following for anemia Pneumonia and respiratory failure management per primary service/ ID Dose all medication to GFR <10 ml/min. Strict ins and outs, renal chemistry, and monitoring in AM. Thank you for this consultation, we will follow along with you regarding care of this patient whilethe patient is here in the hospital, please call if you have any questions or concerns. MARITZA SHARMA MD on 03/22/2025 at 5:08 PM [facility] 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 Schedule : See Blink for iPhone and Android on-call schedule for [facility] ( [facility] ) Nephrology Epic chat : Available on Blink for iPhone and Android chat during working hours only, if no response please use answering service Perfect serve answering service: [phone], if no response please use utilization reviewer Physician Cell phone Cell Phone for utilization reviewer Physician : Use as back up, available on Blink for iPhone and Android on-call schedule Subjective : Patient is stable seen at bedside, he remains confused Objective VITALS BP 135/68 Pulse 74 Temp 36.4 ??C (97.6 ??F) (Oral) Resp 25 Ht 170.2 cm (5' 7 ) Wt 82 kg (180 lb 12.4 oz) SpO2 100% BMI 28.31 kg/m?? BMI: Body mass index is 28.31 kg/m??. Weight change: -4.3 kg (-9 lb 7.7 oz) Wt Readings from Last 3 Encounters: 03/22/25 82 kg (180 lb 12.4 oz) 03/16/25 83 kg (183 lb) 02/28/25 83.4 kg (183 lb 13.8 oz) I/O (24 Hours) Intake/Output Summary (Last 24 hours) at 03/22/2025 1708 Last data filed at 03/22/2025 1202 Gross per 24 hour Intake 347.33 ml Output 500 ml Net -152.67 ml General: Awake, alert, he remains confused HEENT: No conjunctival pallor, anicteric sclera. Atraumatic, normocephalic. Moist oral mucosa. Neck: No lymphadenopathy, no JVD. Neck is supple. Cardiovascular: Regular rate and rhythm. S1 and S2 heard. No murmur, rub, or gallop. Dialysis port present in right upper chest. Respiratory: Bilateral air entry clear to auscultation. No wheezes, rhonchi or crackles. No respiratory distress. Abdomen: Soft, non-tender to palpation. Bowel sounds are normal. Extremities: No cyanosis, clubbing, or edema. Neurological: Patient awake, he remains confused, examination grossly nonfocal Skin: No rashes or lesions. Skin is pink, warm, and dry. Psychiatric: No agitation Medications Scheduled Meds: amiodarone, 200 mg, oral, Daily ARIPiprazole, 10 mg, oral, Daily aspirin, 81 mg, nasogastric, Daily budesonide, 0.5 mg, nebulization, Q12H busPIRone, 15 mg, nasogastric, TID cholecalciferol (vitamin D3), 1,000 Units, nasogastric, Daily cyanocobalamin, 1,000 mcg, nasogastric, Daily DAPTOmycin (CUBICIN) IV, 500 mg, intravenous, Q48H darbepoetin sylwia (ARANESP) injection, 60 mcg, subcutaneous, Weekly DULoxetine, 20 mg, oral, Daily ferrous sulfate, 325 mg, nasogastric, Daily with breakfast gabapentin, 100 mg, oral, TID ipratropium-albuteroL, 3 mL, nebulization, Q6H [COMPLETED] meropenem, 500 mg, intravenous, Once FOLLOWED BY meropenem, 500 mg, intravenous, Q24H metoprolol succinate XL, 12.5 mg, oral, BID pantoprazole, 40 mg, intravenous, Q12H risperiDONE, 3 mg, oral, Nightly rivastigmine, 1 patch, transdermal, Daily sodium chloride, 10 mL, intravenous, Q96H sodium chloride, 10 mL, intravenous, Q96H sodium chloride, 30 mL, intravenous, Q8H AND sodium chloride, 10 mL, intravenous, PRN AND sodium chloride, 20 mL, intravenous, PRN sodium citrate, 1.6 mL, intravenous, Q96H sodium citrate, 1.6 mL, intravenous, Q96H tamsulosin, 0.4 mg, oral, Daily topiramate, 200 mg, nasogastric, BID Continuous Infusions: sodium chloride 0.9 %, 20 mL/hr PRN Meds: acetaminophen calcium gluconate OR calcium gluconate OR [DISCONTINUED] calcium gluconate ipratropium-albuteroL magnesium sulfate OR [DISCONTINUED] magnesium sulfate midodrine sodium chloride AND sodium chloride AND sodium chloride sodium chloride sodium chloride sodium chloride sodium chloride sodium chloride 0.9 % sodium citrate sodium citrate sodium phosphate IV OR sodium phosphate IV - central line OR [DISCONTINUED] sod phos di, mono-K phos mono Results Review: Renal Chemistry Results from last 7 days Lab Units 03/22/25 0529 03/21/25 0642 03/19/25 0649 03/18/25 0203 03/17/25 0627 03/17/25 0223 03/16/25 1132 03/16/25 0135 03/15/25 1739 SODIUM mmol/L 144 146 140 135 -- 139 < > -- 136 POTASSIUM mmol/L 4.1 4.2 3.9 3.9 4.3 3.5 < > -- 4.0 CHLORIDE mmol/L 110* 111* 104 101 -- 105 < > -- 100 CO2 mmol/L 26 24 27 23 -- 24 < > -- 24 BUN mg/dL 37* 46* 34* 52* -- 34* < > -- 51* CREATININE mg/dL 2.03* 2.39* 2.23* 3.33* -- 2.28* < > -- 3.13* CALCIUM mg/dL 8.8 9.3 9.0 8.8 -- 8.3* < > -- 9.2 MAGNESIUM mg/dL 2.0 2.1 -- -- -- 1.7* -- 1.9 1.8 < > = values in this interval not displayed. Hepatic: Lab Results Component Value Date AST 10 03/22/2025 AST 8 03/21/2025 AST 11 03/19/2025 ALT 7 03/22/2025 ALT 8 03/21/2025 ALT 6 03/19/2025 ALKPHOS 151 (H) 03/22/2025 ALKPHOS 154 (H) 03/21/2025 ALKPHOS 132 (H) 03/19/2025 BNP Lab Results Component Value Date BNP 951 (H) 03/16/2025 Albumin: Lab Results Component Value Date ALBUMIN 3.1 (L) 03/22/2025 CBC Results from last 7 days Lab Units 03/22/25 1324 03/22/25 0529 03/21/25 0642 03/19/25 0649 03/18/25 0503 03/18/25 0203 03/17/25 0740 03/17/25 0223 WBC 10^9/L -- 4.3 4.7 4.3 -- 4.6 -- 5.0 HEMOGLOBIN g/dL 8.0* 6.8* 7.4* 7.9* 7.4* 7.2* < > 7.0* HEMATOCRIT % 23.2* 20.1* 21.8* 23.8* -- 21.6* < > 20.5* PLATELETS 10^9/L -- 190 165 118* -- 109* -- 77* < > = values in this interval not displayed. Results from last 7 days Lab Units 03/22/25 0529 03/21/25 0642 03/19/25 0649 03/18/25 0203 03/17/25 0223 BEDSIDE GLUCOSE mg/dL -- -- -- -- 180* GLUCOSE mg/dL 122* 144* 126* 166* 122* Urine Studies: Lab Results Component Value Date COLOR Yellow 03/15/2025 TURBIDITY Clear 03/15/2025 SPECIFICGRA 1.015 03/15/2025 SPECIFICGRA 1.020 07/12/2012 NITRITE Negative 03/15/2025 PHURINE 7.0 03/15/2025 LEUKOCYTE Negative 03/15/2025 LEUKOCYTE Negative 07/12/2012 PROTEIN 100 mg/dL (A) 03/15/2025 KETONES Negative 03/15/2025 UROBILINOGEN 1.0 eu/dL 03/15/2025 UROBILINOGEN 0.2 07/12/2012 BLOODHGB Moderate (A) 03/15/2025 No results found for: URINECREATI , PROTUR , MICROALBUR , MICRAU No results found for: UPROCRTRAT , ALBCREATRA Urine Sodium: No components found for: TRAVIS Urine Potassium: No results found for: KUR Urine Chloride: No results found for: CLUR Urine Osmolarity: No components found for: OSMOU Urine Creatinine: No results found for: LABCREA Urine Eosinophils: No components found for: UEOS Urine Protein: No components found for: TPU Immunology Profile Lab Results Component Value Date CRP 1.6 (H) 02/25/2025 No results found for: HAV , HEPAIGM , HEPBIGM , HEPBCAB , HBEAG , HEPCAB SARITA: No results found for: SARITA C3:No results found for: C3 C4:No results found for: C4 MPO ANCA: No results found for: MPO PR3 ANCA: No components found for: PR3 hepatitis serologies ANTIGBM:No components found for: GBMABIGG HEPATITIS B SURFACE AG: Lab Results Component Value Date HEPBSAG Non-Reactive 02/25/2025 HEPATITIS C AB: No results found for: HEPCAB Electrophoresis: SPEP:No results found for: PROT , LABALPH , LABBETA , PATH UPEP:No results found for: LABPE Anemia Profile Lab Results Component Value Date WBC 4.3 03/22/2025 WBC 4.7 03/21/2025 HGB 8.0 (L) 03/22/2025 HGB 6.8 (LL) 03/22/2025 HCT 23.2 (L) 03/22/2025 HCT 20.1 (L) 03/22/2025 PLT 190 03/22/2025 PLT 165 03/21/2025 Lab Results Component Value Date IRONSAT 25 03/22/2025 IRONSAT 30 02/25/2025 FERRITIN 849 (H) 03/22/2025 FERRITIN 551 (H) 02/25/2025 [id number] 507 03/22/2025 [id number] 226 02/25/2025 FOLATE 17.6 03/22/2025 FOLATE >25.0 02/25/2025 Bone Mineral Profile No results found for: PTH Echocardiogram: Echo complete W/3D Recon Independ wkstn Result Date: 02/01/2025 1 1 [facility] Heart Station [address] [place] [address] [phone] (fax) Echocardiogram-[facility] Name: TIMMY MUÑOZ Study Date: 02/01/2025 04:09 PM B/P: 144 mmHg/65 mmHg HR: 72 bpm Date of : 1955 Location: [facility] Height: 67 in. Age: 69 year(s) Patient Room: 3135 Weight: 210 lb. Gender: Male Patient Status: InPt BSA: 2.06 m2 Indication: Arrhythmia, Ischemic cardiomyopathy, CHF with low EF, Atrial Fibrillation, H/O NSTEMI, H/O ETOH abuse Examination: Echocardiogram (Complete), Lumason Contrast Image Quality: Fair Patient Consent: Procedure explained to patient Exam Details Contrast: I.V. dose of LumasonConclusions Left Ventricle: The left ventricle is normal size. Global left ventricular systolic function is moderately reduced. The EF is 35 % visually. Left ventricular wall thickness is mildly increased. Regional wall motion abnormalities (see diagram). Grade 3, severe diastolic dysfunction (reversible restrictive LV filling pattern). Right Ventricle: The right ventricle is mildly enlarged. Right ventricular systolic function appears reduced. Doppler studies suggest severely elevated right sided pressures. Left Atrium: The left atrium is moderately enlarged. Right Atrium: The right atrium is moderately enlarged. Mitral Valve: Mild to moderate mitral regurgitation. Aortic Valve: Trivial aortic valve regurgitation. Tricuspid Valve: Moderate tricuspid regurgitation. Aorta: The aortic root exhibits mild dilatation. Overall Conclusions: Due to suboptimal imaging Lumason contrast was administered for opacification and better delineation of endocardial borders. Measurements Left Ventricle Label Value Normal Value LVOTd 2.2 cm (19cm - 21cm) LVOT VTI 19.3 cm (18cm - 22cm) LVOT PGmax 4 mmHgLVEF visual 35 % LVDd, 2D 5.41 cm (4.2cm - 5.9cm) LVDs, 2D 4.04 cm (2.1cm - 4cm) IVSd, 2D 1.44 cm (0.6cm - 1.1cm) LVPWd, 2D 1.24 cm (0.6cm - 1cm) LV Mass, 2D ASE 309.38 g LV Mass Index, 2D ASE 150.2 g/m?? (50g/m?? - 102.4g/m??) RWT, MM 0.46 (0 - 0.42) LVSVI, 2D 34 ml/m2 LVOT PGmean 2 mmHg LVSV_LVOT73 ml Right Ventricle Label Value Normal Value RVDd, 2D 4.42 cm (1.9cm - 3.8cm) TAPSE 1.5 cm Left Atrium Label Value Normal Value LA Volume, BP 96 ml (18ml - 58ml) LADs, 2D 4.5 cm (3cm - 4cm) LAESV index, BP 46.6 ml/m?? Right Atrium Label Value Normal Value RA Area 28 cm?? Aortic Valve Label Value Normal Value AV DVI 0.58 AV VTI 35.1 cm Mitral Valve Label Value Normal Value MV E Vmax 1.19 m/s MV A Vmax 0.51 m/s MV E/A 2.33 MV E/E' lateral 14.4 MV E' lateral 0.08 m/s Tricuspid Valve Label Value Normal Value RA Pressure 8 mmHg RVSP 69 mmHg TR Vmax 3.89 m/s Aorta Label Value Normal Value AoRoot,2D 3.9 cm (1.4cm - 3.8cm) Great Vessels Label Value Normal Value IVC 2.6 cm (1.2cm - 2.3cm) Valvular Assessment LVOT 0.7 - 1.1 m/sec Aortic Valve 1.0 - 1.7 m/sec Mitral Valve 0.6 - 1.3 m/sec Tricuspid Valve 0.3 - 0.7 m/sec Pulmonic Valve 0.6 - 0.9 m/sec Regurgitation Trivial MildMod Moderate Trivial Stenosis No No No No Max Velocity 1.05 m/sec 1.82 m/s 1.19 m/sec Max Gradient 13.00 mmHg Mean Gradient 7.00 mmHg Valve Area 2.2 cm?? Findings Left Ventricle: The left ventricle is normal size. Global left ventricular systolic function is moderately reduced. The EF is 35 % visually. Left ventricular wall thickness is mildly increased. Regional wall motion abnormalities (see diagram). The basal anterior, basal anteroseptal, basal inferoseptal, basal inferior, mid anterior, mid anteroseptal, mid i nferoseptal, mid inferior, apical anterior, apical septal, apical inferior and apex left ventricular wall segments are hypokinetic. All remaining scored left ventricular wall segments are with no wall motion abnormalities. Grade 3, severe diastolic dysfunction (reversible restrictive LV filling pattern). No thrombus is identified in the left ventricle. Right Ventricle: The right ventricle is mildly enlarged. Right ventricular systolic function appears reduced. A pacemaker wire is seen in the right atrium and right ventricle. Doppler studies suggest severely elevated right sided pressures. Left Atrium: The left atrium is moderately enlarged. Right Atrium: The right atrium is moderately enlarged. Mitral Valve: There is nonspecific thickening of the mitral valve leaflet. Mild to moderate mitral regurgitation. No mitral valve stenosis. Aortic Valve: Aortic valve is tri-leaflet. Trivial aortic valve regurgitation. No aortic valve stenosis. Aortic leaflets exhibit mild calcification. Tricuspid Valve: Tricuspid valve appears normal. Moderate tricuspid regurgitation. No tricuspid valve stenosis. Pulmonic Valve: Pulmonary valve appears normal. Trivial pulmonary regurgitation. No pulmonic valve stenosis. Aorta: The aortic root exhibits mild dilatation. Great Vessels: IVC: The IVC is dilated. Respiratory inspiration greater than 50%. Pericardium: No pericardial effusion. Procedure Staff Reading Group: [facility] Referring Physician: JOE LONG Grease Man[facility] Ordering Physician: RODOLFO MOORE Wall Motion Scores -1 - hyperkinesia, 0 - not evaluated, 1 - normal, 2 - hypokinesia, 3 - akinesia, 4 - dyskinesia Echo congenital limited W/O contrast Result Date: 12/22/2024 Left Ventricle: Severely reduced left ventricular systolic function with a visually estimated EF of15 - 20%. EF by visual approximation is 20%. Left ventricle size is normal. Moderately increased wall thickness. See diagram for wall motion findings. Normal diastolic function. Right Ventricle: Right ventricle size is normal. Lead present in the right ventricle. Normal systolic function. Aortic Valve: Mildly calcified cusps. Mitral Valve: Mildly thickened leaflets. Moderate regurgitation. Tricuspid Valve: Moderate to severe regurgitation. Severely elevated RVSP, consistent with severe pulmonary hypertension. RVSP is 75 mmHg. Image quality is adequate. Contrast used: Lumason. Left Ventricle Severely reduced left ventricular systolic function with a visually estimated EF of 15 - 20%. EF by visual approximation is 20%. Left ventricle size is normal. Moderately increased wall thickness. See diagram for wall motion findings. Normal diastolic function. Right Ventricle Right ventricle size isnormal. Lead present in the right ventricle. Normal systolic function. Left Atrium Left atrium sizeis normal. Right Atrium Lead present in the right atrium. Right atrium size is normal. IVC/SVC IVC diameter is dilated and decreases less than 50% during inspiration; therefore the estimated right atrial pressure is elevated (~15 mmHg). IVC size is normal. Mitral Valve Mildly thickened leaflets. Moderate regurgitation. No stenosis noted. Tricuspid Valve Valve structure is normal. Moderate to severe regurgitation. No stenosis noted. Severely elevated RVSP, consistent with severe pulmonary hypertension. RVSP is 75 mmHg. Aortic Valve Mildly calcified cusps. No regurgitation. No stenosis. Pulmonic Valve The pulmonic valve visualization is suboptimal but appears to be functioning normally. Physiologically normal regurgitation. No stenosis noted. Ascending Aorta Normal sized aortic root and ascending aorta. Pericardium No pericardial effusion. Septum No interatrial shunt visualized with colorDoppler. Study Details Image quality: adequate. Heart rate was 66 bpm. The underlying ECG rhythm was sinus rhythm. Cardiac history: PPM/AICD. Color flow Doppler was performed and pulse wave and/or continuous wave Doppler was performed. Lumason contrast was given to enhance imaging. Wall Scoring Baseline Score Index: 1.76 The following segments are akinetic: basal inferoseptal, basal inferior, mid inferoseptal and apical septal. The following segments are hypokinetic: basal anteroseptal, mid anteroseptal, mid inferior, apical inferior and apex. All other segments are normal. Echo complete W/3D Recon Independ wkstn Result Date: 07/08/2024 1 1 [facility] Heart Station [address] [place] [address] [phone] (fax) Echocardiogram-[facility] Name: TIMMY MUÑOZ Study Date: 07/08/2024 12:08 PM B/P: 132 mmHg/68 mmHg HR: Date of : 1955 Location: [facility] Height: 67 in. Age: 69 year(s) Patient Room: 3135 Weight: 230 lb. Gender: Male Patient Status: InPt BSA: 2.15 m2 Indication: CHF with low ejection fraction Examination: Echocardiogram (Complete), Lumason Contrast Image Quality: Fair Patient Consent: Procedure explained to patient Conclusions Left Ventricle: The left ventricle is normal size. Global left ventricular systolic function is severely reduced. The EF is 10 % visually. Left ventricular wall thickness is normal. Diffuse global hypokinesis.Right Ventricle: The right ventricle is enlarged. Right ventricular systolic function appears reduced. Doppler studies suggest moderately elevated right sided pressures (elevated pulmonary pressure).Left Atrium: The left atrium is moderately enlarged. Right Atrium: The right atrium is moderately enlarged. Mitral Valve: Mild mitral regurgitation. Tricuspid Valve: Moderate tricuspid regurgitation.Great Vessels: IVC: The IVC is dilated. There is no inspiratory collapse of the IVC. Overall Conclusions: Due to suboptimal imaging Lumason contrast was administered for opacification and better delineation of endocardial borders. Measurements Left Ventricle Label Value Normal Value LVOT VTI 10.5 cm (18cm - 22cm) LVOT PGmax 1 mmHg LVEF visual 10 % LVDd, 2D 5.28 cm (4.2cm - 5.9cm) LVDs, 2D 4.62 cm(2.1cm - 4cm) IVSd, 2D 1.33 cm (0.6cm - 1.1cm) LVPWd, 2D 1.07 cm (0.6cm - 1cm) LV Mass, 2D ASE 255.01 g LV Mass Index, 2D ASE 118.6 g/m?? (50g/m?? - 102.4g/m??) RWT, MM 0.41 (0 - 0.42) LVSVI, 2D 16.7ml/m2 LVOT PGmean 1 mmHg Right Ventricle Label Value Normal Value RVDd, 2D 4.59 cm (1.9cm - 3.8cm) TAPSE 0.78 cm Left Atrium Label Value Normal Value LA Volume, BP 87 ml (18ml - 58ml) LAESV index, BP40.5 ml/m?? Right Atrium Label Value Normal Value RA Area 24.2 cm?? Aortic Valve Label Value NormalValue AV DVI 0.44 AV VTI 21.7 cm Mitral Valve Label Value Normal Value MV E' lateral 0.08 m/s Tricuspid Valve Label Value Normal Value RA Pressure 15 mmHg RVSP 47 mmHg TR Vmax 2.82 m/s Aorta Label Value Normal Value AoRoot, 2D 3.8 cm (1.4cm - 3.8cm) Valvular Assessment LVOT 0.7 - 1.1 m/sec Aortic Valve 1.0 - 1.7 m/sec Mitral Valve 0.6 - 1.3 m/sec Tricuspid Valve 0.3 - 0.7 m/sec Pulmonic Valve 0.6- 0.9 m/sec Regurgitation No Mild Moderate Trivial Max Velocity 0.57 m/sec 1.30 m/s 0.84 m/s Max Gradient 7.00 mmHg 3.00 mmHg Mean Gradient 3.00 mmHg Findings Left Ventricle: The left ventricle is normal size. Global left ventricular systolic function is severely reduced. The EF is 10 % visually. Left ventricular wall thickness is normal. Diffuse global hypokinesis. Right Ventricle: The right ventricle is enlarged. Right ventricular systolic function appears reduced. Doppler studies suggest moderately elevated right sided pressures (elevated pulmonary pressure). Left Atrium: The left atrium is moderately enlarged. Right Atrium: The right atrium is moderately enlarged. Mitral Valve: There isnonspecific thickening of the mitral valve leaflet. Mild mitral regurgitation. Aortic Valve: Focal aortic cusp thickening is noted. No aortic valve regurgitation. Tricuspid Valve: Normal tricuspid valve. Moderate tricuspid regurgitation. Pulmonic Valve: Normal pulmonary valve. Trivial pulmonary regurgitation. Aorta: The aortic root exhibits normal size. Great Vessels: IVC: The IVC is dilated. There is no inspiratory collapse of the IVC. Pericardium: No pericardial effusion. Procedure Staff Reading Group: [facility] Grease Man: Morena Green RDCS Ordering Physician: PIERRE AKINS Echo congenital limited W/O contrast Result Date: 01/26/2024 Left Ventricle: Moderately reduced left ventricular systolic function with a visually estimated EF of 35 - 40%. EF by 2D Simpsons Biplane is 36%. Left ventricle size is normal. Mild posterior thickening. Moderate septal thickening. Moderate hypokinesis of the following segments: basal inferior, midinferior and mid inferoseptal. Diastolic function indeterminate in the setting of atrial fibrillation. Right Ventricle: Right ventricle is mildly dilated. Lead present in the right ventricle. Mitral Valve: Moderate regurgitation with a centrally directed jet. Tricuspid Valve: Mild to moderate regurgitation with a centrally directed jet. The estimated RVSP is 87 mmHg. Severely elevated RVSP, consistent with severe pulmonary hypertension. Aorta: Normal sized ascending aorta. Mildly dilated aorticroot. Ao root diameter is 4.1 cm. No previous studies were available for comparison. Left VentricleModerately reduced left ventricular systolic function with a visually estimated EF of 35 - 40%. EF by 2D Simpsons Biplane is 36%. Left ventricle size is normal. Mild posterior thickening. Moderate septal thickening.Moderate hypokinesis of the following segments: basal inferior, mid inferior and midinferoseptal. Diastolic function indeterminate in the setting of atrial fibrillation. Right Ventricle Right ventricle is mildly dilated. Lead present in the right ventricle. Normal systolic function.Left Atrium Left atrium size is normal. Right Atrium Lead present in the right atrium. Right atriumsize is normal. IVC/SVC IVC diameter is less than or equal to 21 mm and decreases greater than 50% during inspiration; therefore the estimated right atrial pressure is normal (~3 mmHg). IVC size is normal. Mitral Valve Valve structure is normal. Moderate regurgitation with a centrally directed jet.No stenosis noted. Tricuspid Valve Valve structure is normal. Mild to moderate regurgitation with acentrally directed jet. The estimated RVSP is 87 mmHg. No stenosis noted. Severely elevated RVSP, consistent with severe pulmonary hypertension. Aortic Valve Valve structure is normal. Trace regurgita tion. No stenosis. Pulmonic Valve The pulmonic valve visualization is suboptimal but appears to be functioning normally. Mild regurgitation. No stenosis noted. Ascending Aorta Normal sized ascending aorta. Mildly dilated aortic root. Ao root diameter is 4.1 cm. Pericardium No pericardial effusion. Pulmonary Artery Main pulmonary artery is mildly dilated. Study Details Image quality: adequate. No contrast was given. Echo limited W/O contrast Result Date: 04/08/2023 APPROVED REPORT Conclusion Mild left ventricular enlargement Mild concentric LVH Mild to moderate global LV systolic dysfunction with no obvious segmental wall motion abnormalities-ejection fraction 40% Grossly normal right-sided chamber dimensions Trileaflet aortic valve with mild calcification but no stenosis Grossly normal mitral valve No pericardial effusion Left Ventricle Left ventricle is mildly dilated. Mild to moderate overall LV systolic dysfunction with no major discrete wall motion abnormalities Borderline concentric left ventricular hypertrophy. General global hypokinesis The diastolic function was not assessed. LVEF is 40%. Right Ventricle The right ventricle is normal size. Right ventricular systolic function could not be assessed. Atria Left atrium is borderline dilated. The right atrium size is normal. The right atrium size is normal. Aortic Valve Trileaflet valve with mild fibrocalcific changes and normal opening in systole The aortic valve is normal in structure. There is no aortic valvular stenosis. Tricuspid Valve The tricuspid valve is normal in structure. Pulmonic Valve Pulmonic valve is not well visualized. Great Vessels The aortic root is normal in size. The IVC was not visualized. Pericardium There is no pericardial effusion. EXAM: Limited 2D Echocardiogram Imaging system used: GE 2D Dimensions LVDd 5.5 cm M: 4.2 - 5.8 LVEF (Roberts's) 47.11 % M: 52 - 72 LVDs 4.58 cm M: 2.5 - 4.0 EF AP4-a2DQ 41.12 % EF AP2-a2DQ 50.69 % EF BP-a2DQ 47.11 % LVESV 89 mL LVEDV 167.48 mL M: 62 - 150 LV Volume Index 72.50 mL/m2 M: 34 - 74 Thank you for the consultation. Please do not hesitate to contact us for any further questions/concerns. We will continue to follow along with you. * Deana Albert MD - 03/22/2025 3:30 PM EST [facility] 03/22/2025 Hospital Day: 7 Patient Name: Timmy Muñoz : 1955 ASSESSMENT Septic shock present on admission-resolved Acute metabolic encephalopathy in setting of sepsis Acute on chronic respiratory failure with hypoxia-resolved. Currently on room air. Previously notedto use 2 L/min nasal cannula at baseline Right lower lobe bacterial pneumonia Enterococcus UTI Acute on chronic anemia. Oropharyngeal dysphagia on level 4 pureed diet and no liquids. Per chart review patient refusing PEG tube placement. COPD on home oxygen-no exacerbation ESRD on hemodialysis MWF Chronic systolic heart failure with no exacerbation Paroxysmal atrial fibrillation status post Maze on Eliquis Coronary artery disease status post CABG and stent. Brilinta on hold for history of GI bleed and anemia Acute on chronic anemia. Concern for GI bleed with positive fecal occult on anemia of chronic disease. Chronic thrombocytopenia Sick sinus syndrome status post pacemaker Diabetes mellitus type 2 BPH on [facility] delirium PLAN Daptomycin and meropenem per infectiosu disease 1 unit packed red blood cells ordered this morning for hemoglobin 6.8 Fecal occult blood test positive. Gastroenterology consulted. Appreciate recommendations. Protonix q.12 hours Level 4 pureed diet and no liquids per [employer]ET[employer]ADER recommendations. Will hold all off on repeat swallow study and keep NPO pending GI evaluation. Eliquis/ aspirin on hold Nebulizers prn Cardiology following. Toprol increased to 12.5 mg b.I.d.. Continue amiodarone 200 mg. PT/OT Delirium precautions DVT prophylaxis: SCDs, Eliquis on hold due to severe anemia requiring blood transfusion and concernfor GI bleeding Discharge planning: SNF Subjective SUBJECTIVE Hemoglobin 6.8 on this morning labs and unit of packed red blood cells ordered. He denies abdominalpain. Discussed with RN no reported hematochezia or melena. Several brown bowel movements documented yesterday. Objective OBJECTIVE Physical Exam: General appearance: alert, in no apparent distress HEENT: atraumatic, EOM intact, no erythema Lungs: clear to auscultation bilaterally, no use of accessory muscles Heart: RRR, normal S1 and S2, no murmurs Abdomen: soft, non-distended, non-tender, normoactive bowel sounds Extremities: no edema, no rash Neurologic: no focal deficits Vital Signs: Temp: [36.1 ??C (96.9 ??F)-36.8 ??C (98.2 ??F)] 36.4 ??C (97.6 ??F) Pulse: [66-95] 74 Resp: [16-34] 25 BP: (119-139)/(60-85) 135/68 SpO2: [92 %-100 %] 100 % O2 Device: None (Room air) O2 Flow Rate (L/min): [0 L/min] 0 L/min Weight: Body mass index is 28.31 kg/m??. Admission weight: 86.5 kg (190 lb 11.2 oz) Wt Readings from Last 3 Encounters: 03/22/25 82 kg (180 lb 12.4 oz) 03/16/25 83 kg (183 lb) 02/28/25 83.4 kg (183 lb 13.8 oz) Input/Output: Intake/Output Summary (Last 24 hours) at 03/22/2025 1530 Last data filed at 03/22/2025 1202 Gross per 24 hour Intake 347.33 ml Output 700 ml Net -352.67 ml Labs/Imaging: Recent Results (from the past 24 hours) Troponin I, High Sensitivity 1 Hour Collection Time: 03/21/25 5:08 PM Result Value Ref Range TROPONIN I, HIGH SENSITIVITY 14 <21 ng/L Comprehensive metabolic panel Collection Time: 03/22/25 5:29 AM Result Value Ref Range SODIUM 144 134 - 146 mmol/L POTASSIUM 4.1 3.5 - 5.0 mmol/L CHLORIDE 110 (H) 98 - 109 mmol/L CARBON DIOXIDE 26 22 - 32 mmol/L ANION GAP 8 5 - 15 mmol/L BLOOD UREA NITROGEN 37 (H) 5 - 27 mg/dL CREATININE 2.03 (H) 0.60 - 1.30 mg/dL GLUCOSE 122 (H) 65 - 99 mg/dL CALCIUM 8.8 8.5 - 10.5 mg/dL TOTAL PROTEIN 5.9 (L) 6.0 - 8.0 g/dL ALBUMIN 3.1 (L) 3.2 - 5.3 g/dL ALKALINE PHOSPHATASE 151 (H) 39 - 130 U/L AST 10 <=41 U/L ALT 7 <=40 U/L BILIRUBIN,TOTAL 0.7 0.3 - 1.2 mg/dL EGFR Non-Race Dependent 34 (L) >=60 ml/min/1.73sq.m CBC auto differential Collection Time: 03/22/25 5:29 AM Result Value Ref Range WBC 4.3 4 - 11 10^9/L RBC Count 2.15 (L) 4.1 - 5.7 10^12/L Hemoglobin 6.8 (LL) 13 - 17 g/dL Hematocrit 20.1 (L) 39 - 50 % MCV 94 80 - 100 fL MCH 31.5 27 - 34 pg MCHC 33.7 32 - 36 g/dL RDW 18.8 (H) 11.5 - 15 % Platelet Count 190 150 - 450 10^9/L MPV 7.3 7 - 12 fL Neutrophils % 61.5 % Lymphocytes % 19.0 % Monocytes % 10.7 % Eosinophils % 7.7 % Basophils % 1.1 % Neutrophils Absolute (A) 2.7 1.5 - 6.6 10^9/L Lymphocytes Absolute 0.8 (L) 1.0 - 3.5 10^9/L Monocytes Absolute 0.5 0.0 - 0.9 10^9/L Eosinophils Absolute 0.3 0.0 - 0.4 10^9/L Basophils Absolute 0.0 0.0 - 0.2 10^9/L Differential Type AUTOMATED DIFFERENTIAL Magnesium Collection Time: 03/22/25 5:29 AM Result Value Ref Range MAGNESIUM 2.0 1.8 - 2.6 mg/dL Type and screen(includes indirect bryce) Collection Time: 03/22/25 7:00 AM Result Value Ref Range ABO O RH Positive Antibody Screen Negative Iron and TIBC Collection Time: 03/22/25 7:00 AM Result Value Ref Range IRON 40 (L) 50 - 212 ug/dL IRON BINDING 162 (L) 250 - 425 ug/dL IRON SATURATION 25 20 - 50 % SATURATION Extra Tubes Collection Time: 03/22/25 7:00 AM Narrative The following orders were created for panel order Extra Tubes. Procedure Abnormality Status --------- ------ Lavender Top[[id number]] Final result Please view results for these tests on the individual orders. Lavender Top Collection Time: 03/22/25 7:00 AM Result Value Ref Range Extra Tube Auto Resulted Ferritin Collection Time: 03/22/25 7:00 AM Result Value Ref Range FERRITIN 849 (H) 24 - 336 ng/mL Vitamin B12 Collection Time: 03/22/25 7:00 AM Result Value Ref Range VITAMIN B12 507 180 - 914 pg/mL Folate Collection Time: 03/22/25 7:00 AM Result Value Ref Range FOLIC ACID 17.6 >5.8 ng/mL Crossmatch RBC:Number of Units: 1 Collection Time: 03/22/25 7:00 AM Result Value Ref Range Blood component type [id number] Unit number [id number] Unit ABO O Unit RH POS Crossmatch Compatible Status of unit ISSUED Expiration Date [id number] BB Type Barcode 5100 Occult blood x 1, stool Collection Time: 03/22/25 11:59 AM Result Value Ref Range FECAL OCCULT BLOOD Positive (A) Negative Hemoglobin and hematocrit, blood Collection Time: 03/22/25 1:24 PM Result Value Ref Range Hemoglobin 8.0 (L) 13 - 17 g/dL Hematocrit 23.2 (L) 39 - 50 % All available laboratory, imaging, and microbiology data has been personally reviewed in detail, and accessible in full per EMR. Medications: amiodarone, 200 mg, oral, Daily ARIPiprazole, 10 mg, oral, Daily aspirin, 81 mg, nasogastric, Daily budesonide, 0.5 mg, nebulization, Q12H busPIRone, 15 mg, nasogastric, TID cholecalciferol (vitamin D3), 1,000 Units, nasogastric, Daily cyanocobalamin, 1,000 mcg, nasogastric, Daily DAPTOmycin (CUBICIN) IV, 500 mg, intravenous, Q48H darbepoetin sylwia (ARANESP) injection, 60 mcg, subcutaneous, Weekly DULoxetine, 20 mg, oral, Daily ferrous sulfate, 325 mg, nasogastric, Daily with breakfast gabapentin, 100 mg, oral, TID ipratropium-albuteroL, 3 mL, nebulization, Q6H [COMPLETED] meropenem, 500 mg, intravenous, Once FOLLOWED BY meropenem, 500 mg, intravenous, Q24H metoprolol succinate XL, 12.5 mg, oral, BID pantoprazole, 40 mg, intravenous, Q12H risperiDONE, 3 mg, oral, Nightly rivastigmine, 1 patch, transdermal, Daily sodium chloride, 10 mL, intravenous, Q96H sodium chloride, 10 mL, intravenous, Q96H sodium chloride, 30 mL, intravenous, Q8H AND sodium chloride, 10 mL, intravenous, PRN AND sodium chloride, 20 mL, intravenous, PRN sodium citrate, 1.6 mL, intravenous, Q96H sodium citrate, 1.6 mL, intravenous, Q96H tamsulosin, 0.4 mg, oral, Daily topiramate, 200 mg, nasogastric, BID acetaminophen calcium gluconate OR calcium gluconate OR [DISCONTINUED] calcium gluconate ipratropium-albuteroL magnesium sulfate OR [DISCONTINUED] magnesium sulfate midodrine sodium chloride AND sodium chloride AND sodium chloride sodium chloride sodium chloride sodium chloride sodium chloride sodium chloride 0.9 % sodium citrate sodium citrate sodium phosphate IV OR sodium phosphate IV - central line OR [DISCONTINUED] sod phos di, mono-K phos mono Deana Albert MD * Siddhartha Vazquez MD - 03/22/2025 12:21 PM EST Images from the original note were not included. [facility], SIDDHARTHA VAZQUEZ MD, personally performed the face to face diagnostic evaluation on this patient.My findings are as follows: Subjective:NAEON. PVCs noted on Tele. Appears to be in atrial fibrillation. Pt does not answer my questions and falls back asleep. Objective: BP 135/68 Pulse 74 Temp 36.4 ??C (97.6 ??F) (Oral) Resp 25 Ht 170.2 cm (5' 7 ) Wt 82 kg (180 lb 12.4 oz) SpO2 100% BMI 28.31 kg/m?? General: no acute distress Cardiac: irregular rate and rhythm Lungs: Clear to ausculation Ext: no edema PVCs/NSVT Device interrogated. No VT. Frequent episodes of PMT (pacemaker mediated tachycardia). 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 -Change midodrine to as needed for dialysis. -Continue amiodarone 200 mg, Elquis 5 mg BID. -[facility] cardi[facility] [facility]. Thank you for this consult, cardiology will sign off. SIDDHARTHA VAZQUEZ MD This note was completed using a voice mailing jogger system. Every effort was made to ensure accuracy. However, inadvertent computerized mailing jogger errors may be present. * Tanna Josue MD - 03/22/2025 9:24 AM EST Images from the original note were not included. [facility] - Daily Progress Note Timmy Muñoz Admission date/time 03/16/2025 5:16 AM Today's Date and Time: 03/22/2025, 9:24 AM Impression : sepsis Fever Aspiration pneumonia Right basilar infiltrate Enterococcus UTI History of ESBL E coli UTI February 2025 Altered mental status COPD CAD status post stenting and CABG Ischemic cardiomyopathy Heart failure with reduced ejection fraction AFib on Eliquis Hypertension End-stage renal disease on hemodialysis Type 2 diabetes mellitus Anemia Thrombocytopenia Prolonged QTC Recommendations: Chest x-ray 03/19/2025: IMPRESSION: Airspace infiltrate at the right lung base appears more extensive than on the previous study suggestive of pneumonia. ECG 03/16/2025: Prolonged QTC of 512 Cultures Blood cultures x2 03/19/2025 in process Blood cultures x2 03/15/25 finalized with no growth. MRSA PCR 03/16/2025 finalized negative Respiratory pathogen panel 03/16/2025 final negative Urine culture 03/15/2025 positive for Enterococcus Blood cultures x2 03/15/2025 in process Previous admission Urine culture 02/24/2025 positive for ESBL E coli. CK [address] abdomen and pelvis Antibiotics Continue daptomycin and meropenem tentatively until March [address] abdomen pelvis negative No statins while on daptomycin Check and monitor CK level Nephrology and palliative medicine on consult Follow-up WBC platelets creatinine LFT ID clinic in 2-3 weeks Supportive care FOLLOW UP/chief complaints Aspiration pneumonia, Enterococcus UTI Interval History: The patient was seen resting in bed. Afebrile. Denies nausea, vomiting, diarrhea, itch, rash. ROS: Negative except as above Social History: Social History Socioeconomic History Marital status: Single Spouse name: Not on file Number of children: Not on file Years of education: Not on file Highest education level: Not on file Occupational History Not on file Tobacco Use Smoking status: Never Smokeless tobacco: Never Tobacco comments: 02/25 TEO - AMS, unable to reach family. [facility] pt does not have history of smoking on file with them Vaping Use Vaping status: Unknown Substance and Sexual Activity Alcohol use: Defer Comment: 02/25 TEO - AMS, unable to reach family. Drug use: Not on file Comment: 02/25 TEO - AMS, unable to reach family. Sexual activity: Not on file Other Topics Concern Not on file Social History Narrative Not on file Social Drivers of Health Financial Resource Strain: Low Risk (01/31/2025) Received from [facility] Overall Financial Resource Strain ([facility]) Difficulty of Paying Living Expenses: Not hard at all Food Insecurity: No Food Insecurity (03/19/2025) Hunger Screening Food Insecurity - Worry: Never True Food Insecurity - Inability: Never True Transportation Needs: No Transportation Needs (02/25/2025) PRAPARE - Transportation Lack of Transportation (Medical): No Lack of Transportation (Non-Medical): No Physical Activity: Not on file Stress: Not on file Social Connections: Not on file Interpersonal Safety: Patient Unable To Answer (02/25/2025) Humiliation, Afraid, Rape, and Kick questionnaire Fear of Current or Ex-Partner: Patient unable to answer Emotionally Abused: Patient unable to answer Physically Abused: Patient unable to answer Sexually Abused: Patient unable to answer Housing Instability: Low Risk (02/25/2025) Housing Instability Housing Instability: No Family History: Family History Family history unknown: Yes Physical Examination : Vitals: 03/21/25200903/21/25 2020 03/22/25 0559 03/22/25 0809 BP: 128/76 Pulse: 93 80 95 Resp: (!) 27 (!) 34 (!) 27 Temp: 36.8 ??C (98.2 ??F) TempSrc: Oral SpO2: 97% 99% 98% Weight: 82 kg (180 lb 12.4 oz) Temperature Range: Temp: 36.8 ??C (98.2 ??F) Temp Av.6 ??C (97.9 ??F) Min: 36.4 ??C (97.6 ??F)Max: 36.8 ??C (98.2 ??F) General Appearance: Awake, alert, and in no apparent distress Pulmonary/Chest: Clear to auscultation, without wheezes, rales, or rhonchi Cardiovascular: Regular rate and rhythm without murmurs, rubs, or gallops. Abdomen: soft, non-tender, without masses or organomegaly, normal bowel sounds Extremities: No cyanosis, clubbing, edema, or effusions. Skin:no unusual rash Laboratory data: I have independently reviewed the following labs: Results from last 7 days Lab Units 03/22/2552803/21/2564103/19/25648 WBC 10^9/L 4.3 4.7 4.3 HEMOGLOBIN g/dL 6.8* 7.4* 7.9* HEMATOCRIT % 20.1* 21.8* 23.8* PLATELETS 10^9/L 190 165 118* Results from last 7 days Lab Units 03/22/25 0503/21/2542 03/19/2549 03/17/2562603/17/25 0223 POTASSIUM mmol/L 4.1 4.2 3.9 < > 3.5 CHLORIDE mmol/L 110* 111* 104 < > 105 CO2 mmol/L 26 24 27 < > 24 BUN mg/dL 37* 46* 34* < > 34* CREATININE mg/dL 2.03* 2.39* 2.23* < > 2.28* EGFR (CKD-EPI) NON-RACE DEPENDENT ml/min/1.73sq.m 34* 28* 31* < > 30* CALCIUM mg/dL 8.8 9.3 9.0 < > 8.3* MAGNESIUM mg/dL 2.0 2.1 -- -- 1.7* < > = values in this interval not displayed. Results from last 7 days Lab Units 03/22/25 0503/21/2564103/19/25648 ALK PHOS U/L 151* 154* 132* ALT U/L 7 8 6 AST U/L 10 8 11 Lab Results Component Value Date CRP 1.6 (H) 02/25/2025 No results found for: SEDRATE Cultures: Microbiology Results Procedure Component Value Units Date/Time Blood culture #1 [[id number]] Collected: 03/19/25648 Specimen: Blood, Venous Updated: 03/22/25 0801 CULTURE RESULTS NO GROWTH 3 DAYS Narrative: Suboptimal volume of blood collected, Results may be affected. Blood culture #2 [[id number]] Collected: 03/19/25 0649 Specimen: Blood, Venous Updated: 03/22/25 0801 CULTURE RESULTS NO GROWTH 3 DAYS Narrative: Suboptimal volume of blood collected, Results may be affected. Blood culture #1 [[id number]] Collected: 03/16/25 1035 Specimen: Blood, Venous Updated: 03/21/25 1101 CULTURE RESULTS NO GROWTH 5 DAYS Narrative: Suboptimal volume of blood collected, Results may be affected. Blood culture #2 [[id number]] Collected: 03/16/25 1035 Specimen: Blood, Venous Updated: 03/21/25 1101 CULTURE RESULTS NO GROWTH 5 DAYS Narrative: Suboptimal volume of blood collected, Results may be affected. Mrsa Pcr nasal swab [[id number]] (Normal) Collected: 03/16/25 0748 Specimen: Swab from Nostril Updated: 03/16/25 0959 MRSA PCR NASAL Negative Resp Pathogens Panel/SARS CoV-2 [[id number]] (Normal) Collected: 03/16/25 0748 Specimen: Swab from Nasopharynx Updated: 03/16/25 0949 SARS COV 2 BY PCR Not Detected ADENOVIRUS Not Detected CORONAVIRUS 229E Not Detected CORONAVIRUS HKU1 Not Detected CORONAVIRUS NL63 Not Detected CORONAVIRUS OC43 Not Detected HUMAN METAPNEUVIRUS Not Detected RHINO/ENTEROVIRUS Not Detected INFLUENZA A Not Detected INFLUENZA B Not Detected PARAINFLUENZA 1 Not Detected PARAINFLUENZA 2 Not Detected PARAINFLUENZA 3 Not Detected PARAINFLUENZA 4 Not Detected RESP SYNCYTIAL VIRUS Not Detected BORD PARAPERTUSSIS Not Detected BORDETELLA PERTUSSIS Not Detected CHLAM.PNEUMONIAE Not Detected MYCOPLASMA PNEUMONIAE Not Detected Narrative: The [employer] Respiratory Panel 2.1 (RP2.1) is a multiplexed nucleic acid test intended for the simultaneous qualitative detection and differentiation of nucleic acid from multiple viral and bacterial respiratory organisms, including nucleic acid from Severe Acute Respiratory Syndrome Coronavirus 2 (SARS-CoV-2), in nasopharyngeal swabs obtained from individuals suspected of COVID-19 by their healthcare provider. Testing is limited to laboratories certified under the Clinical Laboratory Improvement Amendments of 1988 (CLIA), to perform high complexity or moderate complexity tests. SARS-CoV-2 RNA and nucleic acids from the other respiratory viral and bacterial organisms identified by this test are generally detectable in nasopharyngeal swabs during the acute phase of infection.The detection and identification of specific viral and bacterial nucleic acids from individuals exhibiting signs and/or symptoms of respiratory infection is indicative of the presence of the identified microorganism and aids in the diagnosis of respiratory infection if used in conjunction with other clinical and epidemiological information. Positive results are indicative of the presence of the identified organism, but do not rule out co-infection with other pathogens. The agent(s) detected by the [employer] RP2.1 may not be the definite cause of disease and clinical correlation with patient history and other diagnostic information is necessary to determine patient infection status. Negative results in the setting of a respiratory illness may be due to infection with pathogens notdetected by this test, or lower respiratory tract infection that may not be detected by a nasopharyngeal specimen. Negative results do not preclude SARS-CoV-2 infection and should not be used as the sole basis for patient management decisions. Negative HORACIO-CoV-2 results must be combined with clinical observations, patient history and epidemiological information. Negative results for other organisms identified by the test may require additional laboratory testing when evaluating a patient with possible respiratory tract infection. Urine Culture Urine, Indwelling Catheter [[id number]] (Abnormal) (Susceptibility) Collected: 03/15/25 1751 Specimen: Urine, Indwelling Catheter Updated: 03/18/25 0820 CULTURE RESULTS 50,000-100,000 CFU/mL Enterococcus species Susceptibility Enterococcus species Method Not Specified Ampicillin >=32.0 Resistant Levofloxacin >=8.0 Resistant Nitrofurantoin 32 Susceptible Vancomycin <=0.5 Susceptible Blood culture [[id number]] Collected: 03/15/251738 Specimen: Blood, Venous Updated: 03/21/25 0004 CULTURE RESULTS NO GROWTH 5 DAYS Narrative: Suboptimal volume of blood collected, Results may be affected. Blood culture [[id number]] Collected: 03/15/251738 Specimen: Blood, Venous Updated: 03/21/25 0004 CULTURE RESULTS NO GROWTH 5 DAYS Narrative: Suboptimal volume of blood collected, Results may be affected. Imaging Studies: Fluoroscopy swallow motility function Result Date: 03/19/2025 FL SWALLOW MOTILITY FUNCTION HISTORY: Oropharyngeal dysphagia COMPARISON: None TECHNIQUE: Video fluoroscopic swallow study was performed in conjunction with speech pathologist. Barium contrast materials of varying consistencies administered. FINDINGS: Fluoroscopy time: 2.6 Reference air kerma: 5.4 mGy Runs: 13 Thin: Aspiration Mildly thick: Aspiration Moderately thick: Aspiration Applesauce: No penetration or aspiration. Fruit: No penetration or aspiration. IMPRESSION: 1. Abnormal swallow studyas described above 2. Please correlate with dedicated speech pathology report for additional details and recommendations. Approved by Res Alejandro Teran MD on 03/19/2025 10:31 AM I, Kwesi Cleary have personally reviewed the image(s) and agree with and/or edited the report Finalized by Kwesi Cleary on 03/19/2025 10:39 AM Medications: amiodarone, 200 mg, oral, Daily ARIPiprazole, 10 mg, oral, Daily aspirin, 81 mg, nasogastric, Daily budesonide, 0.5 mg, nebulization, Q12H busPIRone, 15 mg, nasogastric, TID cholecalciferol (vitamin D3), 1,000 Units, nasogastric, Daily cyanocobalamin, 1,000 mcg, nasogastric, Daily DAPTOmycin (CUBICIN) IV, 500 mg, intravenous, Q48H darbepoetin sylwia (ARANESP) injection, 60 mcg, subcutaneous, Weekly DULoxetine, 20 mg, oral, Daily ferrous sulfate, 325 mg, nasogastric, Daily with breakfast gabapentin, 100 mg, oral, TID ipratropium-albuteroL, 3 mL, nebulization, Q6H [COMPLETED] meropenem, 500 mg, intravenous, Once FOLLOWED BY meropenem, 500 mg, intravenous, Q24H metoprolol succinate XL, 12.5 mg, oral, Daily midodrine, 5 mg, oral, TID pantoprazole, 40 mg, intravenous, Q12H risperiDONE, 3 mg, oral, Nightly rivastigmine, 1 patch, transdermal, Daily sodium chloride, 10 mL, intravenous, Q96H sodium chloride, 10 mL, intravenous, Q96H sodium chloride, 30 mL, intravenous, Q8H AND sodium chloride, 10 mL, intravenous, PRN AND sodium chloride, 20 mL, intravenous, PRN sodium citrate, 1.6 mL, intravenous, Q96H sodium citrate, 1.6 mL, intravenous, Q96H tamsulosin, 0.4 mg, oral, Daily topiramate, 200 mg, nasogastric, BID Thank you for allowing us to participate in the care of this patient. Please call with questions. TIMOTEO Smart This note was completed using a voice mailing jogger system. Every effort was made to ensure accuracy. However, inadvertent computerized mailing jogger errors may be present. TIMOTEO Peña 03/22/25 1017 ITanna MD, personally performed veid-fw-lwce diagnostic evaluation on this patient I reviewed and performed all the darby component of the patient visit I reviewed SUGAR history, exam and MDM - Tanna Josue MD 03/22/25 11:29 AM * Maritza Sharma MD - 03/21/2025 5:40 PM EST Images from the original note were not included. [facility] Matt Goncalves CNP Nephrology Progress Note Patient Name: Timmy Muñoz : 1955 Date of Service: 03/21/25 PCP: GATO CHA MD Attending Physician: Deana Albert MD Admission Date: 03/16/2025 Length of stay: LOS: 5 days Chief complaint. Chief Complaint Patient presents with Altered Mental Status Reason for Consult: Assessment and Plan. 70-year-old male with a past medical history significant for end-stage renal disease (ESRD) on hemodialysis (Friday, , Friday schedule) since 12/23/2024 at [facility] under the care of Dr. Matt Sharma, chronic systolic heart failure with reduced ejection fraction (HFrEF) of 35%, paroxysmal atrial fibrillation on Eliquis, type 2 diabetes mellitus, and COPD on 2 liters of oxygen at baseline presented to the emergency department with altered mental status on 03/16/2025. The patient was initially at [facility] where a stroke alert was called for left-sided deficit, facial droop, and slurring of speech. CT of the brain was negative for acute pathology. A chest x-ray revealed a right lower lobe infiltrate, and the altered mental status was attributed to an infectious etiology. The patient was started on vancomycin and cefepime. While being transferred to [facility], he developed hypotension, unresponsiveness, and fever, prompting his return to the [facility] ED. There, a right femoral central line was placed, and he was started on vasopressor support with Levophed. He was subsequently transferred to the ICU at this facility for septic shock. Upon arrival in the ICU, he was noted to be alert but confused and not following commands, requiring Levophed. Nephrology consultation was requested for management of ESRD and planning for hemodialysis in thesetting of critical illness. Assessment End stage renal disease (ESRD) on maintenance hemodialysis, Friday, , Friday schedule [facility] under the care of Dr. Matt Sharma. Electrolyte Abnormalities: Stable. Acid-Base status: No significant acidosis or alkalosis. Volume Status: Appears euvolemic. Blood pressure remains on the low side. Net I/O over last 24 hours is -53.84 ml. Hypertension: Home antihypertensives are held due to hypotension. Hemodynamics: History of reduced LVEF EF 35% per last echo on 01/2025. Currently requires vasopressor support for hypotension. Anemia of CKD: Most recent hemoglobin is 7.2 g/dL. CKD-MBD / Renal Osteodystrophy: To be managed as per outpatient protocol. Sepsis secondary to right-sided pneumonia. Septic shock requiring vasopressor support. Acute on chronic hypoxic respiratory failure. COPD on 2L NC at baseline. Acute Metabolic encephalopathy, improving. Heart failure with reduced ejection fraction (HFrEF). Paroxysmal atrial fibrillation on Eliquis. Type 2 diabetes mellitus. Plan Plan for HD today Loop diuretics for volume management as needed Continue amiodarone Home dose of Entresto spironolactone Imdur Flomax to be resumed as able KG per protocol. Pneumonia and respiratory failure management per primary service. Recommend neurology evaluation given multiple sedative and psychotropic medications including Abilify, buspirone, Cymbalta, Neurontin, risperidone, rivastigmine, and Topamax. Dose all medication to GFR <10 ml/min. Strict ins and outs, renal chemistry, and monitoring in AM. Thank you for this consultation, we will follow along with you regarding care of this patient whilethe patient is here in the hospital, please call if you have any questions or concerns. MARITZA SHARMA MD on 03/21/2025 at 5:40 PM [facility] 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 Schedule : See [facility] on-call schedule for [facility] ( [facility] ) Nephrology Epic chat : Available on Blink for iPhone and Android chat during working hours only, if no response please use answering service Perfect serve answering service: [phone], if no response please use utilization reviewer Physician Cell phone Cell Phone for utilization reviewer Physician : Use as back up, available on Blink for iPhone and Android on-call schedule Subjective : PVCs/NSVT on telemetry while on HD Rapide response called HD dc'd Cardiology consulted Objective VITALS BP 136/75 Pulse 85 Temp 36.4 ??C (97.6 ??F) (Oral) Resp 18 Wt 86.3 kg (190 lb 4.1 oz) SpO2 95% BMI 29.80 kg/m?? BMI: Body mass index is 29.8 kg/m??. Weight change: 0.2 kg (7.1 oz) Wt Readings from Last 3 Encounters: 03/21/25 86.3 kg (190 lb 4.1 oz) 03/16/25 83 kg (183 lb) 02/28/25 83.4 kg (183 lb 13.8 oz) I/O (24 Hours) Intake/Output Summary (Last 24 hours) at 03/21/2025 1740 Last data filed at 03/21/2025 1600 Gross per 24 hour Intake 619.69 ml Output 1420 ml Net -800.31 ml General: Awake, alert, he remains confused HEENT: No conjunctival pallor, anicteric sclera. Atraumatic, normocephalic. Moist oral mucosa. Neck: No lymphadenopathy, no JVD. Neck is supple. Cardiovascular: Regular rate and rhythm. S1 and S2 heard. No murmur, rub, or gallop. Dialysis port present in right upper chest. Respiratory: Bilateral air entry clear to auscultation. No wheezes, rhonchi or crackles. No respiratory distress. Abdomen: Soft, non-tender to palpation. Bowel sounds are normal. Extremities: No cyanosis, clubbing, or edema. Neurological: Patient awake, he remains confused, examination grossly nonfocal Skin: No rashes or lesions. Skin is pink, warm, and dry. Psychiatric: No agitation Medications Scheduled Meds: amiodarone, 200 mg, oral, Daily apixaban, 5 mg, oral, BID ARIPiprazole, 10 mg, oral, Daily aspirin, 81 mg, nasogastric, Daily budesonide, 0.5 mg, nebulization, Q12H busPIRone, 15 mg, nasogastric, TID cholecalciferol (vitamin D3), 1,000 Units, nasogastric, Daily cyanocobalamin, 1,000 mcg, nasogastric, Daily DAPTOmycin (CUBICIN) IV, 500 mg, intravenous, Q48H darbepoetin sylwia (ARANESP) injection, 60 mcg, subcutaneous, Weekly DULoxetine, 20 mg, oral, Daily ferrous sulfate, 325 mg, nasogastric, Daily with breakfast gabapentin, 100 mg, oral, TID ipratropium-albuteroL, 3 mL, nebulization, Q6H [COMPLETED] meropenem, 500 mg, intravenous, Once FOLLOWED BY meropenem, 500 mg, intravenous, Q24H metoprolol succinate XL, 12.5 mg, oral, Daily midodrine, 5 mg, oral, TID pantoprazole, 40 mg, oral, QAM AC risperiDONE, 3 mg, oral, Nightly rivastigmine, 1 patch, transdermal, Daily sodium chloride, 10 mL, intravenous, Q96H sodium chloride, 10 mL, intravenous, Q96H sodium chloride, 30 mL, intravenous, Q8H AND sodium chloride, 10 mL, intravenous, PRN AND sodium chloride, 20 mL, intravenous, PRN sodium citrate, 1.6 mL, intravenous, Q96H sodium citrate, 1.6 mL, intravenous, Q96H tamsulosin, 0.4 mg, oral, Daily topiramate, 200 mg, nasogastric, BID Continuous Infusions: PRN Meds: acetaminophen calcium gluconate OR calcium gluconate OR [DISCONTINUED] calcium gluconate ipratropium-albuteroL magnesium sulfate OR [DISCONTINUED] magnesium sulfate sodium chloride AND sodium chloride AND sodium chloride sodium chloride sodium chloride sodium chloride sodium chloride sodium citrate sodium citrate sodium phosphate IV OR sodium phosphate IV - central line OR [DISCONTINUED] sod phos di, mono-K phos mono Results Review: Renal Chemistry Results from last 7 days Lab Units 03/21/25 0642 03/19/25 0649 03/18/25 0203 03/17/25 0627 03/17/25 0223 03/16/25 1132 03/16/25 0135 03/15/25 1739 SODIUM mmol/L 146 140 135 -- 139 139 -- 136 POTASSIUM mmol/L 4.2 3.9 3.9 4.3 3.5 4.1 -- 4.0 CHLORIDE mmol/L 111* 104 101 -- 105 104 -- 100 CO2 mmol/L 24 27 23 -- 24 24 -- 24 BUN mg/dL 46* 34* 52* -- 34* 59* -- 51* CREATININE mg/dL 2.39* 2.23* 3.33* -- 2.28* 3.86* -- 3.13* CALCIUM mg/dL 9.3 9.0 8.8 -- 8.3* 9.1 -- 9.2 MAGNESIUM mg/dL 2.1 -- -- -- 1.7* -- 1.9 1.8 Hepatic: Lab Results Component Value Date AST 8 03/21/2025 AST 11 03/19/2025 AST 12 03/18/2025 ALT 8 03/21/2025 ALT 6 03/19/2025 ALT 8 03/18/2025 ALKPHOS 154 (H) 03/21/2025 ALKPHOS 132 (H) 03/19/2025 ALKPHOS 115 03/18/2025 BNP Lab Results Component Value Date BNP 951 (H) 03/16/2025 Albumin: Lab Results Component Value Date ALBUMIN 3.3 03/21/2025 CBC Results from last 7 days Lab Units 03/21/25 0642 03/19/25 0649 03/18/25 0503 03/18/25 0203 03/17/25 0740 03/17/25 0223 03/16/25 1132 WBC 10^9/L 4.7 4.3 -- 4.6 -- 5.0 8.1 HEMOGLOBIN g/dL 7.4* 7.9* 7.4* 7.2* 8.0* 7.0* 8.1* HEMATOCRIT % 21.8* 23.8* -- 21.6* 24.0* 20.5* 23.9* PLATELETS 10^9/L 165 118* -- 109* -- 77* 84* Results from last 7 days Lab Units 03/21/25 0642 03/19/25 0649 03/18/25 0203 03/17/25 0223 BEDSIDE GLUCOSE mg/dL -- -- -- 180* GLUCOSE mg/dL 144* 126* 166* 122* Urine Studies: Lab Results Component Value Date COLOR Yellow 03/15/2025 TURBIDITY Clear 03/15/2025 SPECIFICGRA 1.015 03/15/2025 SPECIFICGRA 1.020 07/12/2012 NITRITE Negative 03/15/2025 PHURINE 7.0 03/15/2025 LEUKOCYTE Negative 03/15/2025 LEUKOCYTE Negative 07/12/2012 PROTEIN 100 mg/dL (A) 03/15/2025 KETONES Negative 03/15/2025 UROBILINOGEN 1.0 eu/dL 03/15/2025 UROBILINOGEN 0.2 07/12/2012 BLOODHGB Moderate (A) 03/15/2025 No results found for: URINECREATI , PROTUR , MICROALBUR , MICRAU No results found for: UPROCRTRAT , ALBCREATRA Urine Sodium: No components found for: TRAVIS Urine Potassium: No results found for: KUR Urine Chloride: No results found for: CLUR Urine Osmolarity: No components found for: OSMOU Urine Creatinine: No results found for: LABCREA Urine Eosinophils: No components found for: UEOS Urine Protein: No components found for: TPU Immunology Profile Lab Results Component Value Date CRP 1.6 (H) 02/25/2025 No results found for: HAV , HEPAIGM , HEPBIGM , HEPBCAB , HBEAG , HEPCAB SARITA: No results found for: SARITA C3:No results found for: C3 C4:No results found for: C4 MPO ANCA: No results found for: MPO PR3 ANCA: No components found for: PR3 hepatitis serologies ANTIGBM:No components found for: GBMABIGG HEPATITIS B SURFACE AG: Lab Results Component Value Date HEPBSAG Non-Reactive 02/25/2025 HEPATITIS C AB: No results found for: HEPCAB Electrophoresis: SPEP:No results found for: PROT , LABALPH , LABBETA , PATH UPEP:No results found for: LABPE Anemia Profile Lab Results Component Value Date WBC 4.7 03/21/2025 WBC 4.3 03/19/2025 HGB 7.4 (L) 03/21/2025 HGB 7.9 (L) 03/19/2025 HCT 21.8 (L) 03/21/2025 HCT 23.8 (L) 03/19/2025 PLT 165 03/21/2025 PLT 118 (L) 03/19/2025 Lab Results Component Value Date IRONSAT 30 02/25/2025 FERRITIN 551 (H) 02/25/2025 [id number] 226 02/25/2025 FOLATE >25.0 02/25/2025 Bone Mineral Profile No results found for: PTH Echocardiogram: Echo complete W/3D Recon Independ wkstn Result Date: 02/01/2025 1 1 [facility] Heart Station [address] [phone] (fax) Echocardiogram-[facility] Name: TIMMY MUÑOZ Study Date: 02/01/2025 04:09 PM B/P: 144 mmHg/65 mmHg HR: 72 bpm Date of : 1955 Location: [facility] Height: 67 in. Age: 69 year(s) Patient Room: 3135 Weight: 210 lb. Gender: Male Patient Status: InPt BSA: 2.06 m2 Indication: Arrhythmia, Ischemic cardiomyopathy, CHF with low EF, Atrial Fibrillation, H/O NSTEMI, H/O ETOH abuse Examination: Echocardiogram (Complete), Lumason Contrast Image Quality: Fair Patient Consent: Procedure explained to patient Exam Details Contrast: I.V. dose of LumasonConclusions Left Ventricle: The left ventricle is normal size. Global left ventricular systolic function is moderately reduced. The EF is 35 % visually. Left ventricular wall thickness is mildly increased. Regional wall motion abnormalities (see diagram). Grade 3, severe diastolic dysfunction (reversible restrictive LV filling pattern). Right Ventricle: The right ventricle is mildly enlarged. Right ventricular systolic function appears reduced. Doppler studies suggest severely elevated right sided pressures. Left Atrium: The left atrium is moderately enlarged. Right Atrium: The right atrium is moderately enlarged. Mitral Valve: Mild to moderate mitral regurgitation. Aortic Valve: Trivial aortic valve regurgitation. Tricuspid Valve: Moderate tricuspid regurgitation. Aorta: The aortic root exhibits mild dilatation. Overall Conclusions: Due to suboptimal imaging Lumason contrast was administered for opacification and better delineation of endocardial borders. Measurements Left Ventricle Label Value Normal Value LVOTd 2.2 cm (19cm - 21cm) LVOT VTI 19.3 cm (18cm - 22cm) LVOT PGmax 4 mmHgLVEF visual 35 % LVDd, 2D 5.41 cm (4.2cm - 5.9cm) LVDs, 2D 4.04 cm (2.1cm - 4cm) IVSd, 2D 1.44 cm (0.6cm - 1.1cm) LVPWd, 2D 1.24 cm (0.6cm - 1cm) LV Mass, 2D ASE 309.38 g LV Mass Index, 2D ASE 150.2 g/m?? (50g/m?? - 102.4g/m??) RWT, MM 0.46 (0 - 0.42) LVSVI, 2D 34 ml/m2 LVOT PGmean 2 mmHg [id number]_LVOT73 ml Right Ventricle Label Value Normal Value RVDd, 2D 4.42 cm (1.9cm - 3.8cm) TAPSE 1.5 cm Left Atrium Label Value Normal Value LA Volume, BP 96 ml (18ml - 58ml) LADs, 2D 4.5 cm (3cm - 4cm) LAESV index, BP 46.6 ml/m?? Right Atrium Label Value Normal Value RA Area 28 cm?? Aortic Valve Label Value Normal Value AV DVI 0.58 AV VTI 35.1 cm Mitral Valve Label Value Normal Value MV E Vmax 1.19 m/s MV A Vmax 0.51 m/s MV E/A 2.33 MV E/E' lateral 14.4 MV E' lateral 0.08 m/s Tricuspid Valve Label Value Normal Value RA Pressure 8 mmHg RVSP 69 mmHg TR Vmax 3.89 m/s Aorta Label Value Normal Value AoRoot,2D 3.9 cm (1.4cm - 3.8cm) Great Vessels Label Value Normal Value IVC 2.6 cm (1.2cm - 2.3cm) Valvular Assessment LVOT 0.7 - 1.1 m/sec Aortic Valve 1.0 - 1.7 m/sec Mitral Valve 0.6 - 1.3 m/sec Tricuspid Valve 0.3 - 0.7 m/sec Pulmonic Valve 0.6 - 0.9 m/sec Regurgitation Trivial MildMod Moderate Trivial Stenosis No No No No Max Velocity 1.05 m/sec 1.82 m/s 1.19 m/sec Max Gradient 13.00 mmHg Mean Gradient 7.00 mmHg Valve Area 2.2 cm?? Findings Left Ventricle: The left ventricle is normal size. Global left ventricular systolic function is moderately reduced. The EF is 35 % visually. Left ventricular wall thickness is mildly increased. Regional wall motion abnormalities (see diagram). The basal anterior, basal anteroseptal, basal inferoseptal, basal inferior, mid anterior, mid anteroseptal, mid i nferoseptal, mid inferior, apical anterior, apical septal, apical inferior and apex left ventricular wall segments are hypokinetic. All remaining scored left ventricular wall segments are with no wall motion abnormalities. Grade 3, severe diastolic dysfunction (reversible restrictive LV filling pattern). No thrombus is identified in the left ventricle. Right Ventricle: The right ventricle is mildly enlarged. Right ventricular systolic function appears reduced. A pacemaker wire is seen in the right atrium and right ventricle. Doppler studies suggest severely elevated right sided pressures. Left Atrium: The left atrium is moderately enlarged. Right Atrium: The right atrium is moderately enlarged. Mitral Valve: There is nonspecific thickening of the mitral valve leaflet. Mild to moderate mitral regurgitation. No mitral valve stenosis. Aortic Valve: Aortic valve is tri-leaflet. Trivial aortic valve regurgitation. No aortic valve stenosis. Aortic leaflets exhibit mild calcification. Tricuspid Valve: Tricuspid valve appears normal. Moderate tricuspid regurgitation. No tricuspid valve stenosis. Pulmonic Valve: Pulmonary valve appears normal. Trivial pulmonary regurgitation. No pulmonic valve stenosis. Aorta: The aortic root exhibits mild dilatation. Great Vessels: IVC: The IVC is dilated. Respiratory inspiration greater than 50%. Pericardium: No pericardial effusion. Procedure Staff Reading Group: [facility] Referring Physician: JOE LONG Grease Man[facility] Ordering Physician: RODOLFO MOORE Wall Motion Scores -1 - hyperkinesia, 0 - not evaluated, 1 - normal, 2 - hypokinesia, 3 - akinesia, 4 - dyskinesia Echo congenital limited W/O contrast Result Date: 12/22/2024 Left Ventricle: Severely reduced left ventricular systolic function with a visually estimated EF of15 - 20%. EF by visual approximation is 20%. Left ventricle size is normal. Moderately increased wall thickness. See diagram for wall motion findings. Normal diastolic function. Right Ventricle: Right ventricle size is normal. Lead present in the right ventricle. Normal systolic function. Aortic Valve: Mildly calcified cusps. Mitral Valve: Mildly thickened leaflets. Moderate regurgitation. Tricuspid Valve: Moderate to severe regurgitation. Severely elevated RVSP, consistent with severe pulmonary hypertension. RVSP is 75 mmHg. Image quality is adequate. Contrast used: Lumason. Left Ventricle Severely reduced left ventricular systolic function with a visually estimated EF of 15 - 20%. EF by visual approximation is 20%. Left ventricle size is normal. Moderately increased wall thickness. See diagram for wall motion findings. Normal diastolic function. Right Ventricle Right ventricle size isnormal. Lead present in the right ventricle. Normal systolic function. Left Atrium Left atrium sizeis normal. Right Atrium Lead present in the right atrium. Right atrium size is normal. IVC/SVC IVC diameter is dilated and decreases less than 50% during inspiration; therefore the estimated right atrial pressure is elevated (~15 mmHg). IVC size is normal. Mitral Valve Mildly thickened leaflets. Moderate regurgitation. No stenosis noted. Tricuspid Valve Valve structure is normal. Moderate to severe regurgitation. No stenosis noted. Severely elevated RVSP, consistent with severe pulmonary hypertension. RVSP is 75 mmHg. Aortic Valve Mildly calcified cusps. No regurgitation. No stenosis. Pulmonic Valve The pulmonic valve visualization is suboptimal but appears to be functioning normally. Physiologically normal regurgitation. No stenosis noted. Ascending Aorta Normal sized aortic root and ascending aorta. Pericardium No pericardial effusion. Septum No interatrial shunt visualized with colorDoppler. Study Details Image quality: adequate. Heart rate was 66 bpm. The underlying ECG rhythm was sinus rhythm. Cardiac history: PPM/AICD. Color flow Doppler was performed and pulse wave and/or continuous wave Doppler was performed. Lumason contrast was given to enhance imaging. Wall Scoring Baseline Score Index: 1.76 The following segments are akinetic: basal inferoseptal, basal inferior, mid inferoseptal and apical septal. The following segments are hypokinetic: basal anteroseptal, mid anteroseptal, mid inferior, apical inferior and apex. All other segments are normal. Echo complete W/3D Recon Independ wkstn Result Date: 07/08/2024 1 1 [facility] Heart Station [address] [place] [address] [phone] (fax) Echocardiogram-[facility] Name: TIMMY MUÑOZ Study Date: 07/08/2024 12:08 PM B/P: 132 mmHg/68 mmHg HR: Date of : 1955 Location: [facility] Height: 67 in. Age: 69 year(s) Patient Room: 3135 Weight: 230 lb. Gender: Male Patient Status: InPt BSA: 2.15 m2 Indication: CHF with low ejection fraction Examination: Echocardiogram (Complete), Lumason Contrast Image Quality: Fair Patient Consent: Procedure explained to patient Conclusions Left Ventricle: The left ventricle is normal size. Global left ventricular systolic function is severely reduced. The EF is 10 % visually. Left ventricular wall thickness is normal. Diffuse global hypokinesis.Right Ventricle: The right ventricle is enlarged. Right ventricular systolic function appears reduced. Doppler studies suggest moderately elevated right sided pressures (elevated pulmonary pressure).Left Atrium: The left atrium is moderately enlarged. Right Atrium: The right atrium is moderately enlarged. Mitral Valve: Mild mitral regurgitation. Tricuspid Valve: Moderate tricuspid regurgitation.Great Vessels: IVC: The IVC is dilated. There is no inspiratory collapse of the IVC. Overall Conclusions: Due to suboptimal imaging Lumason contrast was administered for opacification and better delineation of endocardial borders. Measurements Left Ventricle Label Value Normal Value LVOT VTI 10.5 cm (18cm - 22cm) LVOT PGmax 1 mmHg LVEF visual 10 % LVDd, 2D 5.28 cm (4.2cm - 5.9cm) LVDs, 2D 4.62 cm(2.1cm - 4cm) IVSd, 2D 1.33 cm (0.6cm - 1.1cm) LVPWd, 2D 1.07 cm (0.6cm - 1cm) LV Mass, 2D ASE 255.01 g LV Mass Index, 2D ASE 118.6 g/m?? (50g/m?? - 102.4g/m??) RWT, MM 0.41 (0 - 0.42) LVSVI, 2D 16.7ml/m2 LVOT PGmean 1 mmHg Right Ventricle Label Value Normal Value RVDd, 2D 4.59 cm (1.9cm - 3.8cm) TAPSE 0.78 cm Left Atrium Label Value Normal Value LA Volume, BP 87 ml (18ml - 58ml) LAESV index, BP40.5 ml/m?? Right Atrium Label Value Normal Value RA Area 24.2 cm?? Aortic Valve Label Value NormalValue AV DVI 0.44 AV VTI 21.7 cm Mitral Valve Label Value Normal Value MV E' lateral 0.08 m/s Tricuspid Valve Label Value Normal Value RA Pressure 15 mmHg RVSP 47 mmHg TR Vmax 2.82 m/s Aorta Label Value Normal Value AoRoot, 2D 3.8 cm (1.4cm - 3.8cm) Valvular Assessment LVOT 0.7 - 1.1 m/sec Aortic Valve 1.0 - 1.7 m/sec Mitral Valve 0.6 - 1.3 m/sec Tricuspid Valve 0.3 - 0.7 m/sec Pulmonic Valve 0.6- 0.9 m/sec Regurgitation No Mild Moderate Trivial Max Velocity 0.57 m/sec 1.30 m/s 0.84 m/s Max Gradient 7.00 mmHg 3.00 mmHg Mean Gradient 3.00 mmHg Findings Left Ventricle: The left ventricle is normal size. Global left ventricular systolic function is severely reduced. The EF is 10 % visually. Left ventricular wall thickness is normal. Diffuse global hypokinesis. Right Ventricle: The right ventricle is enlarged. Right ventricular systolic function appears reduced. Doppler studies suggest moderately elevated right sided pressures (elevated pulmonary pressure). Left Atrium: The left atrium is moderately enlarged. Right Atrium: The right atrium is moderately enlarged. Mitral Valve: There isnonspecific thickening of the mitral valve leaflet. Mild mitral regurgitation. Aortic Valve: Focal aortic cusp thickening is noted. No aortic valve regurgitation. Tricuspid Valve: Normal tricuspid valve. Moderate tricuspid regurgitation. Pulmonic Valve: Normal pulmonary valve. Trivial pulmonary regurgitation. Aorta: The aortic root exhibits normal size. Great Vessels: IVC: The IVC is dilated. There is no inspiratory collapse of the IVC. Pericardium: No pericardial effusion. Procedure Staff Reading Group: [facility] Grease Man: Morena Green RDCS Ordering Physician: PIERRE AKINS Echo congenital limited W/O contrast Result Date: 01/26/2024 Left Ventricle: Moderately reduced left ventricular systolic function with a visually estimated EF of 35 - 40%. EF by 2D Simpsons Biplane is 36%. Left ventricle size is normal. Mild posterior thickening. Moderate septal thickening. Moderate hypokinesis of the following segments: basal inferior, midinferior and mid inferoseptal. Diastolic function indeterminate in the setting of atrial fibrillation. Right Ventricle: Right ventricle is mildly dilated. Lead present in the right ventricle. Mitral Valve: Moderate regurgitation with a centrally directed jet. Tricuspid Valve: Mild to moderate regurgitation with a centrally directed jet. The estimated RVSP is 87 mmHg. Severely elevated RVSP, consistent with severe pulmonary hypertension. Aorta: Normal sized ascending aorta. Mildly dilated aorticroot. Ao root diameter is 4.1 cm. No previous studies were available for comparison. Left VentricleModerately reduced left ventricular systolic function with a visually estimated EF of 35 - 40%. EF by 2D Simpsons Biplane is 36%. Left ventricle size is normal. Mild posterior thickening. Moderate septal thickening.Moderate hypokinesis of the following segments: basal inferior, mid inferior and midinferoseptal. Diastolic function indeterminate in the setting of atrial fibrillation. Right Ventricle Right ventricle is mildly dilated. Lead present in the right ventricle. Normal systolic function.Left Atrium Left atrium size is normal. Right Atrium Lead present in the right atrium. Right atriumsize is normal. IVC/SVC IVC diameter is less than or equal to 21 mm and decreases greater than 50% during inspiration; therefore the estimated right atrial pressure is normal (~3 mmHg). IVC size is normal. Mitral Valve Valve structure is normal. Moderate regurgitation with a centrally directed jet.No stenosis noted. Tricuspid Valve Valve structure is normal. Mild to moderate regurgitation with acentrally directed jet. The estimated RVSP is 87 mmHg. No stenosis noted. Severely elevated RVSP, consistent with severe pulmonary hypertension. Aortic Valve Valve structure is normal. Trace regurgita tion. No stenosis. Pulmonic Valve The pulmonic valve visualization is suboptimal but appears to be functioning normally. Mild regurgitation. No stenosis noted. Ascending Aorta Normal sized ascending aorta. Mildly dilated aortic root. Ao root diameter is 4.1 cm. Pericardium No pericardial effusion. Pulmonary Artery Main pulmonary artery is mildly dilated. Study Details Image quality: adequate. No contrast was given. Echo limited W/O contrast Result Date: 04/08/2023 APPROVED REPORT Conclusion Mild left ventricular enlargement Mild concentric LVH Mild to moderate global LV systolic dysfunction with no obvious segmental wall motion abnormalities-ejection fraction 40% Grossly normal right-sided chamber dimensions Trileaflet aortic valve with mild calcification but no stenosis Grossly normal mitral valve No pericardial effusion Left Ventricle Left ventricle is mildly dilated. Mild to moderate overall LV systolic dysfunction with no major discrete wall motion abnormalities Borderline concentric left ventricular hypertrophy. General global hypokinesis The diastolic function was not assessed. LVEF is 40%. Right Ventricle The right ventricle is normal size. Right ventricular systolic function could not be assessed. Atria Left atrium is borderline dilated. The right atrium size is normal. The right atrium size is normal. Aortic Valve Trileaflet valve with mild fibrocalcific changes and normal opening in systole The aortic valve is normal in structure. There is no aortic valvular stenosis. Tricuspid Valve The tricuspid valve is normal in structure. Pulmonic Valve Pulmonic valve is not well visualized. Great Vessels The aortic root is normal in size. The IVC was not visualized. Pericardium There is no pericardial effusion. EXAM: Limited 2D Echocardiogram Imaging system used: Bee Resilient 2D Dimensions LVDd 5.5 cm M: 4.2 - 5.8 LVEF (Roberts's) 47.11 % M: 52 - 72 LVDs 4.58 cm M: 2.5 - 4.0 EF AP4-a2DQ 41.12 % EF AP2-a2DQ 50.69 % EF BP-a2DQ 47.11 % LVESV 89 mL LVEDV 167.48 mL M: 62 - 150 LV Volume Index 72.50 mL/m2 M: 34 - 74 Thank you for the consultation. Please do not hesitate to contact us for any further questions/concerns. We will continue to follow along with you. * Deana Albert MD - 03/21/2025 4:32 PM EST [facility] 03/21/2025 Hospital Day: 6 Patient Name: Timmy Muñoz : 1955 ASSESSMENT Septic shock present on admission-resolved Acute metabolic encephalopathy in setting of sepsis Acute on chronic respiratory failure with hypoxia-resolved. Currently on room air. Supposed to be using 2 L/min nasal cannula at baseline Right lower lobe bacterial pneumonia Enterococcus UTI Oropharyngeal dysphagia on level 4 pureed diet and no liquids. Per chart review patient refusing PEG tube placement. COPD on home oxygen-no exacerbation ESRD on hemodialysis MWF Chronic systolic heart failure with no exacerbation Paroxysmal atrial fibrillation status post Maze on [facility] Coronary artery disease status post CABG and stent. Brilinta on hold for history of GI bleed and anemia Normocytic anemia -stable Chronic thrombocytopenia Sick sinus syndrome status post pacemaker Diabetes mellitus type 2 BPH on [facility] delirium PLAN Daptomycin and meropenem per infectiosu disease Currently on level 4 pureed diet and no liquids per [employer]RIET[employer]ADER recommendations Aspiration precautions Repeat swallow study tomorrow Nebulizers prn Antihypertensives on hold. Currently on midodrin tid with hold parameters. Continue to monitor blood pressure. Resume home GDMT as able. Continue home eliquis Patient was unable to complete entire dialysis session due to reported chest pain/PVCs. Troponins negative. Cardiology consulted appreciate recommendations. PT/OT Delirium precautions DVT prophylaxis: on eliquis Discharge planning: SNF Subjective SUBJECTIVE Patient was evaluated at bedside. He does not cooperate with history and responds to orientation questions such as location with you know where we are . He denied having pain or shortness of breath this morning. This afternoon RN reported dialysis was unable to be completed due to patient having chest pain and it was noted during dialysis patient was having intermittent PVCs but that he was not having any further chest pain symptoms. Objective OBJECTIVE Physical Exam: General appearance: alert, in no apparent distress HEENT: atraumatic, EOM intact, no erythema Lungs: clear to auscultation bilaterally, no use of accessory muscles Heart: RRR, normal S1 and S2, no murmurs Abdomen: soft, non-distended, non-tender, normoactive bowel sounds Extremities: no edema, no rash Neurologic: no focal deficits Vital Signs: Temp: [36.4 ??C (97.6 ??F)-36.8 ??C (98.3 ??F)] 36.4 ??C (97.6 ??F) Pulse: [72-95] 85 Resp: [14-23] 18 BP: (124-149)/(75-95) 136/75 SpO2: [91 %-100 %] 95 % O2 Device: None (Room air) O2 Flow Rate (L/min): [2 L/min] 2 L/min Weight: Body mass index is 29.8 kg/m??. Admission weight: 86.5 kg (190 lb 11.2 oz) Wt Readings from Last 3 Encounters: 03/21/25 86.3 kg (190 lb 4.1 oz) 03/16/25 83 kg (183 lb) 02/28/25 83.4 kg (183 lb 13.8 oz) Input/Output: Intake/Output Summary (Last 24 hours) at 03/21/2025 1632 Last data filed at 03/21/2025 1600 Gross per 24 hour Intake 619.69 ml Output 1420 ml Net -800.31 ml Labs/Imaging: Recent Results (from the past 24 hours) Comprehensive metabolic panel Collection Time: 03/21/25 6:42 AM Result Value Ref Range SODIUM 146 134 - 146 mmol/L POTASSIUM 4.2 3.5 - 5.0 mmol/L CHLORIDE 111 (H) 98 - 109 mmol/L CARBON DIOXIDE 24 22 - 32 mmol/L ANION GAP 11 5 - 15 mmol/L BLOOD UREA NITROGEN 46 (H) 5 - 27 mg/dL CREATININE 2.39 (H) 0.60 - 1.30 mg/dL GLUCOSE 144 (H) 65 - 99 mg/dL CALCIUM 9.3 8.5 - 10.5 mg/dL TOTAL PROTEIN 6.4 6.0 - 8.0 g/dL ALBUMIN 3.3 3.2 - 5.3 g/dL ALKALINE PHOSPHATASE 154 (H) 39 - 130 U/L AST 8 <=41 U/L ALT 8 <=40 U/L BILIRUBIN,TOTAL 0.7 0.3 - 1.2 mg/dL EGFR Non-Race Dependent 28 (L) >=60 ml/min/1.73sq.m CBC auto differential Collection Time: 03/21/25 6:42 AM Result Value Ref Range WBC 4.7 4 - 11 10^9/L RBC Count 2.31 (L) 4.1 - 5.7 10^12/L Hemoglobin 7.4 (L) 13 - 17 g/dL Hematocrit 21.8 (L) 39 - 50 % MCV 94 80 - 100 fL MCH 31.9 27 - 34 pg MCHC 33.9 32 - 36 g/dL RDW 19.2 (H) 11.5 - 15 % Platelet Count 165 150 - 450 10^9/L MPV 7.4 7 - 12 fL Neutrophils % 70.8 % Lymphocytes % 12.1 % Monocytes % 8.6 % Eosinophils % 7.5 % Basophils % 1.0 % Neutrophils Absolute (A) 3.3 1.5 - 6.6 10^9/L Lymphocytes Absolute 0.6 (L) 1.0 - 3.5 10^9/L Monocytes Absolute 0.4 0.0 - 0.9 10^9/L Eosinophils Absolute 0.4 0.0 - 0.4 10^9/L Basophils Absolute 0.0 0.0 - 0.2 10^9/L Differential Type AUTOMATED DIFFERENTIAL Magnesium Collection Time: 03/21/25 6:42 AM Result Value Ref Range MAGNESIUM 2.1 1.8 - 2.6 mg/dL CK Total Collection Time: 03/21/25 6:42 AM Result Value Ref Range CPK 25 24 - 195 U/L Troponin I, High Sensitivity Collection Time: 03/21/25 3:18 PM Narrative The following orders were created for panel order Troponin I, High Sensitivity. Procedure Abnormality Status --------- ------ Troponin I, High Sensiti...[[id number]] Normal Final result Troponin I, High Sensiti...[[id number]] Please view results for these tests on the individual orders. Troponin I, High Sensitivity 0 Hour Collection Time: 03/21/25 3:18 PM Result Value Ref Range TROPONIN I, HIGH SENSITIVITY 18 <21 ng/L All available laboratory, imaging, and microbiology data has been personally reviewed in detail, and accessible in full per EMR. Medications: amiodarone, 200 mg, oral, Daily apixaban, 5 mg, oral, BID ARIPiprazole, 10 mg, oral, Daily aspirin, 81 mg, nasogastric, Daily budesonide, 0.5 mg, nebulization, Q12H busPIRone, 15 mg, nasogastric, TID cholecalciferol (vitamin D3), 1,000 Units, nasogastric, Daily cyanocobalamin, 1,000 mcg, nasogastric, Daily DAPTOmycin (CUBICIN) IV, 500 mg, intravenous, Q48H darbepoetin sylwia (ARANESP) injection, 60 mcg, subcutaneous, Weekly DULoxetine, 20 mg, oral, Daily ferrous sulfate, 325 mg, nasogastric, Daily with breakfast gabapentin, 100 mg, oral, TID ipratropium-albuteroL, 3 mL, nebulization, Q6H [COMPLETED] meropenem, 500 mg, intravenous, Once FOLLOWED BY meropenem, 500 mg, intravenous, Q24H midodrine, 10 mg, oral, TID pantoprazole, 40 mg, oral, QAM AC risperiDONE, 3 mg, oral, Nightly rivastigmine, 1 patch, transdermal, Daily sodium chloride, 10 mL, intravenous, Q96H sodium chloride, 10 mL, intravenous, Q96H sodium chloride, 30 mL, intravenous, Q8H AND sodium chloride, 10 mL, intravenous, PRN AND sodium chloride, 20 mL, intravenous, PRN sodium citrate, 1.6 mL, intravenous, Q96H sodium citrate, 1.6 mL, intravenous, Q96H tamsulosin, 0.4 mg, oral, Daily topiramate, 200 mg, nasogastric, BID acetaminophen calcium gluconate OR calcium gluconate OR [DISCONTINUED] calcium gluconate ipratropium-albuteroL magnesium sulfate OR [DISCONTINUED] magnesium sulfate sodium chloride AND sodium chloride AND sodium chloride sodium chloride sodium chloride sodium chloride sodium chloride sodium citrate sodium citrate sodium phosphate IV OR sodium phosphate IV - central line OR [DISCONTINUED] sod phos di, mono-K phos mono Deana Albert MD * Tanna Josue MD - 03/21/2025 8:50 AM EST Images from the original note were not included. [facility] - Daily Progress Note Timmy Muñoz Admission date/time 03/16/2025 5:16 AM Today's Date and Time: 03/21/2025, 8:50 AM Impression : sepsis Fever Aspiration pneumonia Right basilar infiltrate Enterococcus UTI History of ESBL E coli UTI February 2025 Altered mental status COPD CAD status post stenting and CABG Ischemic cardiomyopathy Heart failure with reduced ejection fraction AFib on Eliquis Hypertension End-stage renal disease on hemodialysis Type 2 diabetes mellitus Anemia Thrombocytopenia Prolonged QTC Recommendations: Chest x-ray 03/19/2025: IMPRESSION: Airspace infiltrate at the right lung base appears more extensive than on the previous study suggestive of pneumonia. ECG 03/16/2025: Prolonged QTC of 512 Cultures Blood cultures x2 03/19/2025 in process Blood cultures x2 03/16/2025 in process MRSA PCR 03/16/2025 finalized negative Respiratory pathogen panel 03/16/2025 final negative Urine culture 03/15/2025 positive for Enterococcus Blood cultures x2 03/15/2025 in process Previous admission Urine culture 02/24/2025 positive for ESBL E coli. Antibiotics Continue daptomycin and meropenem No statins while on daptomycin Check and monitor CK level - ordered for 03/20, not yet completed. Will reorder CK level for today. Nephrology and palliative medicine on consult Follow-up WBC platelets creatinine LFT ID clinic in 2-3 weeks Supportive care FOLLOW UP/chief complaints Aspiration pneumonia, Enterococcus UTI Interval History: The patient was seen resting in bed eating breakfast. Afebrile. Denies nausea, vomiting, diarrhea, itch, rash. ROS: Negative except as above Social History: Social History Socioeconomic History Marital status: Single Spouse name: Not on file Number of children: Not on file Years of education: Not on file Highest education level: Not on file Occupational History Not on file Tobacco Use Smoking status: Never Smokeless tobacco: Never Tobacco comments: 02/25 TEO - AMS, unable to reach family. Per [place] pt does not have history of smoking on file with them Vaping Use Vaping status: Unknown Substance and Sexual Activity Alcohol use: Defer Comment: 02/25 TEO - AMS, unable to reach family. Drug use: Not on file Comment: 02/25 TEO - AMS, unable to reach family. Sexual activity: Not on file Other Topics Concern Not on file Social History Narrative Not on file Social Drivers of Health Financial Resource Strain: Low Risk (01/31/2025) Received from [facility] Overall Financial Resource Strain (CARDIA) Difficulty of Paying Living Expenses: Not hard at all Food Insecurity: No Food Insecurity (03/19/2025) Hunger Screening Food Insecurity - Worry: Never True Food Insecurity - Inability: Never True Transportation Needs: No Transportation Needs (02/25/2025) PRAPARE - Transportation Lack of Transportation (Medical): No Lack of Transportation (Non-Medical): No Physical Activity: Not on file Stress: Not on file Social Connections: Not on file Interpersonal Safety: Patient Unable To Answer (02/25/2025) Humiliation, Afraid, Rape, and Kick questionnaire Fear of Current or Ex-Partner: Patient unable to answer Emotionally Abused: Patient unable to answer Physically Abused: Patient unable to answer Sexually Abused: Patient unable to answer Housing Instability: Low Risk (02/25/2025) Housing Instability Housing Instability: No Family History: Family History Family history unknown: Yes Physical Examination : Vitals: 03/21/25 0430 03/21/25 0500 03/21/25 0744 03/21/25 0745 BP: 136/80 Pulse: 88 84 92 92 Resp: Temp: 36.7 ??C (98.1 ??F) 36.7 ??C (98.1 ??F) TempSrc: Oral Oral SpO2: 95% Weight: 86.3 kg (190 lb 4.1 oz) Temperature Range: Temp: 36.7 ??C (98.1 ??F) Temp Av.8 ??C (98.2 ??F) Min: 36.7 ??C (98.1 ??F)Max: 36.8 ??C (98.3 ??F) General Appearance: Awake, alert, and in no apparent distress Pulmonary/Chest: Clear to auscultation, without wheezes, rales, or rhonchi Cardiovascular: Regular rate and rhythm without murmurs, rubs, or gallops. Abdomen: soft, non-tender, without masses or organomegaly, normal bowel sounds Extremities: No cyanosis, clubbing, edema, or effusions. Skin:no unusual rash Laboratory data: I have independently reviewed the following labs: Results from last 7 days Lab Units 03/21/25 0642 03/19/25 0649 03/18/25 0503 03/18/25 0203 WBC 10^9/L 4.7 4.3 -- 4.6 HEMOGLOBIN g/dL 7.4* 7.9* 7.4* 7.2* HEMATOCRIT % 21.8* 23.8* -- 21.6* PLATELETS 10^9/L 165 118* -- 109* Results from last 7 days Lab Units 03/21/25 0642 03/19/25 0649 03/18/25 0203 03/17/25 0627 03/17/25 0223 03/16/25 1132 03/16/25 0135 POTASSIUM mmol/L 4.2 3.9 3.9 < > 3.5 < > -- CHLORIDE mmol/L 111* 104 101 -- 105 < > -- CO2 mmol/L 24 27 23 -- 24 < > -- BUN mg/dL 46* 34* 52* -- 34* < > -- CREATININE mg/dL 2.39* 2.23* 3.33* -- 2.28* < > -- EGFR (CKD-EPI) NON-RACE DEPENDENT ml/min/1.73sq.m 28* 31* 19* -- 30* < > -- CALCIUM mg/dL 9.3 9.0 8.8 -- 8.3* < > -- MAGNESIUM mg/dL 2.1 -- -- -- 1.7* -- 1.9 < > = values in this interval not displayed. Results from last 7 days Lab Units 03/21/25 0642 03/19/25 0649 03/18/25 0203 ALK PHOS U/L 154* 132* 115 ALT U/L 8 6 8 AST U/L 8 11 12 Lab Results Component Value Date CRP 1.6 (H) 02/25/2025 No results found for: SEDRATE Cultures: Microbiology Results Procedure Component Value Units Date/Time Blood culture #1 [[id number]] Collected: 12/06/25 0649 Specimen: Blood, Venous Updated: 03/21/25 0802 CULTURE RESULTS NO GROWTH 2 DAYS Narrative: Suboptimal volume of blood collected, Results may be affected. Blood culture #2 [[id number]] Collected: 03/19/25 0649 Specimen: Blood, Venous Updated: 03/21/25 0802 CULTURE RESULTS NO GROWTH 2 DAYS Narrative: Suboptimal volume of blood collected, Results may be affected. Blood culture #1 [[id number]] Collected: 03/16/25 1035 Specimen: Blood, Venous Updated: 03/20/25 1101 CULTURE RESULTS NO GROWTH 4 DAYS Narrative: Suboptimal volume of blood collected, Results may be affected. Blood culture #2 [[id number]] Collected: 03/16/25 1035 Specimen: Blood, Venous Updated: 03/20/25 1101 CULTURE RESULTS NO GROWTH 4 DAYS Narrative: Suboptimal volume of blood collected, Results may be affected. Mrsa Pcr nasal swab [[id number]] (Normal) Collected: 03/16/25 0748 Specimen: Swab from Nostril Updated: 03/16/25 0959 MRSA PCR NASAL Negative Resp Pathogens Panel/SARS CoV-2 [[id number]] (Normal) Collected: 03/16/2548 Specimen: Swab from Nasopharynx Updated: 03/16/25 0949 SARS COV 2 BY PCR Not Detected ADENOVIRUS Not Detected CORONAVIRUS 229E Not Detected CORONAVIRUS HKU1 Not Detected CORONAVIRUS NL63 Not Detected CORONAVIRUS OC43 Not Detected HUMAN METAPNEUVIRUS Not Detected RHINO/ENTEROVIRUS Not Detected INFLUENZA A Not Detected INFLUENZA B Not Detected PARAINFLUENZA 1 Not Detected PARAINFLUENZA 2 Not Detected PARAINFLUENZA 3 Not Detected PARAINFLUENZA 4 Not Detected RESP SYNCYTIAL VIRUS Not Detected BORD PARAPERTUSSIS Not Detected BORDETELLA PERTUSSIS Not Detected CHLAM.PNEUMONIAE Not Detected MYCOPLASMA PNEUMONIAE Not Detected Narrative: The [employer] Respiratory Panel 2.1 (RP2.1) is a multiplexed nucleic acid test intended for the simultaneous qualitative detection and differentiation of nucleic acid from multiple viral and bacterial respiratory organisms, including nucleic acid from Severe Acute Respiratory Syndrome Coronavirus 2 (SARS-CoV-2), in nasopharyngeal swabs obtained from individuals suspected of COVID-19 by their healthcare provider. Testing is limited to laboratories certified under the Clinical Laboratory Improvement Amendments of 1988 (CLIA), to perform high complexity or moderate complexity tests. SARS-CoV-2 RNA and nucleic acids from the other respiratory viral and bacterial organisms identified by this test are generally detectable in nasopharyngeal swabs during the acute phase of infection.The detection and identification of specific viral and bacterial nucleic acids from individuals exhibiting signs and/or symptoms of respiratory infection is indicative of the presence of the identified microorganism and aids in the diagnosis of respiratory infection if used in conjunction with other clinical and epidemiological information. Positive results are indicative of the presence of the identified organism, but do not rule out co-infection with other pathogens. The agent(s) detected by the [employer] RP2.1 may not be the definite cause of disease and clinical correlation with patient history and other diagnostic information is necessary to determine patient infection status. Negative results in the setting of a respiratory illness may be due to infection with pathogens notdetected by this test, or lower respiratory tract infection that may not be detected by a nasopharyngeal specimen. Negative results do not preclude SARS-CoV-2 infection and should not be used as the sole basis for patient management decisions. Negative HORACIO-CoV-2 results must be combined with clinical observations, patient history and epidemiological information. Negative results for other organisms identified by the test may require additional laboratory testing when evaluating a patient with possible respiratory tract infection. Urine Culture Urine, Indwelling Catheter [[id number]] (Abnormal) (Susceptibility) Collected: 03/15/25 175 Specimen: Urine, Indwelling Catheter Updated: 03/18/25 0820 CULTURE RESULTS 50,000-100,000 CFU/mL Enterococcus species Susceptibility Enterococcus species Method Not Specified Ampicillin >=32.0 Resistant Levofloxacin >=8.0 Resistant Nitrofurantoin 32 Susceptible Vancomycin <=0.5 Susceptible Blood culture [[id number]] Collected: 03/15/251738 Specimen: Blood, Venous Updated: 03/21/25 0004 CULTURE RESULTS NO GROWTH 5 DAYS Narrative: Suboptimal volume of blood collected, Results may be affected. Blood culture [[id number]] Collected: 03/15/251738 Specimen: Blood, Venous Updated: 03/21/25 0004 CULTURE RESULTS NO GROWTH 5 DAYS Narrative: Suboptimal volume of blood collected, Results may be affected. Imaging Studies: Fluoroscopy swallow motility function Result Date: 03/19/2025 FL SWALLOW MOTILITY FUNCTION HISTORY: Oropharyngeal dysphagia COMPARISON: None TECHNIQUE: Video fluoroscopic swallow study was performed in conjunction with speech pathologist. Barium contrast materials of varying consistencies administered. FINDINGS: Fluoroscopy time: 2.6 Reference air kerma: 5.4 mGy Runs: 13 Thin: Aspiration Mildly thick: Aspiration Moderately thick: Aspiration Applesauce: No penetration or aspiration. Fruit: No penetration or aspiration. IMPRESSION: 1. Abnormal swallow studyas described above 2. Please correlate with dedicated speech pathology report for additional details and recommendations. Approved by Edward Teran MD on 03/19/2025 10:31 AM IKwesi have personally reviewed the image(s) and agree with and/or edited the report Finalized by Kwesi Cleary on 03/19/2025 10:39 AM X-ray chest 1 view Result Date: 03/19/2025 History: Follow-up for infiltrate right lung. Exam/Technique: Portable upright AP chest Comparison:03/16/2025 Findings: Right-sided tunneled dialysis catheter, transvenous pacemaker, and changes fromprevious open heart surgery all unaltered. Infiltrate at the right lung base appears more extensivethan on the previous study.. Cardiomegaly appears unchanged with interval increase in vascular congestion IMPRESSION: Airspace infiltrate at the right lung base appears more extensive than on the previous study suggestive of pneumonia. Pulmonary vascular congestion has also increased. Finalized by Erwin Rivero MD on 03/19/2025 5:03 AM Medications: amiodarone, 200 mg, oral, Daily apixaban, 5 mg, oral, BID ARIPiprazole, 10 mg, oral, Daily aspirin, 81 mg, nasogastric, Daily budesonide, 0.5 mg, nebulization, Q12H busPIRone, 15 mg, nasogastric, TID cholecalciferol (vitamin D3), 1,000 Units, nasogastric, Daily cyanocobalamin, 1,000 mcg, nasogastric, Daily DAPTOmycin (CUBICIN) IV, 500 mg, intravenous, Q48H darbepoetin sylwia (ARANESP) injection, 60 mcg, subcutaneous, Weekly DULoxetine, 20 mg, oral, Daily ferrous sulfate, 325 mg, nasogastric, Daily with breakfast gabapentin, 100 mg, oral, TID ipratropium-albuteroL, 3 mL, nebulization, Q6H [COMPLETED] meropenem, 500 mg, intravenous, Once FOLLOWED BY meropenem, 500 mg, intravenous, Q24H midodrine, 10 mg, oral, TID pantoprazole, 40 mg, oral, QAM AC risperiDONE, 3 mg, oral, Nightly rivastigmine, 1 patch, transdermal, Daily sodium chloride, 10 mL, intravenous, Q96H sodium chloride, 10 mL, intravenous, Q96H sodium chloride, 30 mL, intravenous, Q8H AND sodium chloride, 10 mL, intravenous, PRN AND sodium chloride, 20 mL, intravenous, PRN sodium citrate, 1.6 mL, intravenous, Q96H sodium citrate, 1.6 mL, intravenous, Q96H tamsulosin, 0.4 mg, oral, Daily topiramate, 200 mg, nasogastric, BID Thank you for allowing us to participate in the care of this patient. Please call with questions. Trena Sanford APRN-THADDEUS This note was completed using a voice mailing jogger system. Every effort was made to ensure accuracy. However, inadvertent computerized mailing jogger errors may be present. TIMOTEO Peña 03/21/25 1051 I, Tanna Josue MD, personally performed [id number] diagnostic evaluation on this patient I reviewed and performed all the darby component of the patient visit I reviewed SUGAR history, exam and MDM - Tanna Josue MD 03/21/25 2:20 PM * Maritza Sharma MD - 03/20/2025 5:00 PM EST Images from the original note were not included. [facility] Matt Goncalves, AQUATIC FACILITY MANAGER Nephrology Progress Note Patient Name: Timmy Muñoz : 1955 Date of Service: 03/20/25 PCP: GATO CHA MD Attending Physician: Ricarda Reece MD Admission Date: 03/16/2025 Length of stay: LOS: 4 days Chief complaint. Chief Complaint Patient presents with Altered Mental Status Reason for Consult: Assessment and Plan. 70-year-old male with a past medical history significant for end-stage renal disease (ESRD) on hemodialysis (Friday, , Friday schedule) since 12/23/2024 at [facility] under the care of Dr. Matt Sharma, chronic systolic heart failure with reduced ejection fraction (HFrEF) of 35%, paroxysmal atrial fibrillation on Eliquis, type 2 diabetes mellitus, and COPD on 2 liters of oxygen at baseline presented to the emergency department with altered mental status on 03/16/2025. The patient was initially at [facility] where a stroke alert was called for left-sided deficit, facial droop, and slurring of speech. CT of the brain was negative for acute pathology. A chest x-ray revealed a right lower lobe infiltrate, and the altered mental status was attributed to an infectious etiology. The patient was started on vancomycin and cefepime. While being transferred to [facility], he developed hypotension, unresponsiveness, and fever, prompting his return to the [facility] ED. There, a right femoral central line was placed, and he was started on vasopressor support with Levophed. He was subsequently transferred to the ICU at this facility for septic shock. Upon arrival in the ICU, he was noted to be alert but confused and not following commands, requiring Levophed. Nephrology consultation was requested for management of ESRD and planning for hemodialysis in thesetting of critical illness. Assessment End stage renal disease (ESRD) on maintenance hemodialysis, Friday, , Friday schedule [facility] under the care of Dr. Matt Sharma. Electrolyte Abnormalities: Stable. Acid-Base status: No significant acidosis or alkalosis. Volume Status: Appears euvolemic. Blood pressure remains on the low side. Net I/O over last 24 hours is -53.84 ml. Hypertension: Home antihypertensives are held due to hypotension. Hemodynamics: History of reduced LVEF EF 35% per last echo on 01/2025. Currently requires vasopressor support for hypotension. Anemia of CKD: Most recent hemoglobin is 7.2 g/dL. CKD-MBD / Renal Osteodystrophy: To be managed as per outpatient protocol. Sepsis secondary to right-sided pneumonia. Septic shock requiring vasopressor support. Acute on chronic hypoxic respiratory failure. COPD on 2L NC at baseline. Acute Metabolic encephalopathy, improving. Heart failure with reduced ejection fraction (HFrEF). Paroxysmal atrial fibrillation on Eliquis. Type 2 diabetes mellitus. Plan We will evaluate for hemodialysis tomorrow otherwise we will continue per his schedule TTS Continue midodrine for blood pressure support. Loop diuretics for volume management as needed Continue amiodarone Home dose of Entresto spironolactone Imdur Flomax to be resumed as able KG per protocol. Pneumonia and respiratory failure management per primary service. Recommend neurology evaluation given multiple sedative and psychotropic medications including Abilify, buspirone, Cymbalta, Neurontin, risperidone, rivastigmine, and Topamax. Dose all medication to GFR <10 ml/min. Strict ins and outs, renal chemistry, and monitoring in AM. Thank you for this consultation, we will follow along with you regarding care of this patient whilethe patient is here in the hospital, please call if you have any questions or concerns. MARITZA SHARMA MD on 03/20/2025 at 5:01 PM [facility] 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 Schedule : See [facility] on-call schedule for [facility] ( [facility] ) Nephrology [facility] chat : Available on Blink for iPhone and Android chat during working hours only, if no response please use answering service Perfect serve answering service: [phone], if no response please use utilization reviewer Physician Cell phone Cell Phone for utilization reviewer Physician : Use as back up, available on Blink for iPhone and Android on-call schedule Subjective : Patient seen at bedside, No acute distress Objective VITALS BP 151/79 Pulse 86 Temp 36.4 ??C (97.5 ??F) (Oral) Resp 18 Wt 86.1 kg (189 lb 13.1 oz) SpO2 97% BMI 29.73 kg/m?? BMI: Body mass index is 29.73 kg/m??. Weight change: Wt Readings from Last 3 Encounters: 03/20/25 86.1 kg (189 lb 13.1 oz) 03/16/25 83 kg (183 lb) 02/28/25 83.4 kg (183 lb 13.8 oz) I/O (24 Hours) Intake/Output Summary (Last 24 hours) at 03/20/2025 1701 Last data filed at 03/20/2025 1000 Gross per 24 hour Intake 107.14 ml Output 400 ml Net -292.86 ml General: Awake, alert, he remains confused HEENT: No conjunctival pallor, anicteric sclera. Atraumatic, normocephalic. Moist oral mucosa. Neck: No lymphadenopathy, no JVD. Neck is supple. Cardiovascular: Regular rate and rhythm. S1 and S2 heard. No murmur, rub, or gallop. Dialysis port present in right upper chest. Respiratory: Bilateral air entry clear to auscultation. No wheezes, rhonchi or crackles. No respiratory distress. Abdomen: Soft, non-tender to palpation. Bowel sounds are normal. Extremities: No cyanosis, clubbing, or edema. Neurological: Patient awake, he remains confused, examination grossly nonfocal Skin: No rashes or lesions. Skin is pink, warm, and dry. Psychiatric: No agitation Medications Scheduled Meds: amiodarone, 200 mg, oral, Daily apixaban, 5 mg, oral, BID ARIPiprazole, 10 mg, oral, Daily aspirin, 81 mg, nasogastric, Daily budesonide, 0.5 mg, nebulization, Q12H busPIRone, 15 mg, nasogastric, TID cholecalciferol (vitamin D3), 1,000 Units, nasogastric, Daily cyanocobalamin, 1,000 mcg, nasogastric, Daily DAPTOmycin (CUBICIN) IV, 500 mg, intravenous, Q48H darbepoetin sylwia (ARANESP) injection, 60 mcg, subcutaneous, Weekly DULoxetine, 20 mg, oral, Daily ferrous sulfate, 325 mg, nasogastric, Daily with breakfast gabapentin, 100 mg, oral, TID ipratropium-albuteroL, 3 mL, nebulization, Q6H [COMPLETED] meropenem, 500 mg, intravenous, Once FOLLOWED BY meropenem, 500 mg, intravenous, Q24H midodrine, 10 mg, oral, TID pantoprazole, 40 mg, oral, QAM AC risperiDONE, 3 mg, oral, Nightly rivastigmine, 1 patch, transdermal, Daily sodium chloride, 10 mL, intravenous, Q96H sodium chloride, 10 mL, intravenous, Q96H sodium chloride, 30 mL, intravenous, Q8H AND sodium chloride, 10 mL, intravenous, PRN AND sodium chloride, 20 mL, intravenous, PRN sodium citrate, 1.6 mL, intravenous, Q96H sodium citrate, 1.6 mL, intravenous, Q96H tamsulosin, 0.4 mg, oral, Daily topiramate, 200 mg, nasogastric, BID Continuous Infusions: PRN Meds: acetaminophen calcium gluconate OR calcium gluconate OR [DISCONTINUED] calcium gluconate ipratropium-albuteroL magnesium sulfate OR [DISCONTINUED] magnesium sulfate sodium chloride AND sodium chloride AND sodium chloride sodium chloride sodium chloride sodium chloride sodium chloride sodium citrate sodium citrate sodium phosphate IV OR sodium phosphate IV - central line OR [DISCONTINUED] sod phos di, mono-K phos mono Results Review: Renal Chemistry Results from last 7 days Lab Units 03/19/25 0649 03/18/25 0203 03/17/25 0627 03/17/25 0223 03/16/25 1132 03/16/25 0135 03/15/25 1739 SODIUM mmol/L 140 135 -- 139 139 -- 136 POTASSIUM mmol/L 3.9 3.9 4.3 3.5 4.1 -- 4.0 CHLORIDE mmol/L 104 101 -- 105 104 -- 100 CO2 mmol/L 27 23 -- 24 24 -- 24 BUN mg/dL 34* 52* -- 34* 59* -- 51* CREATININE mg/dL 2.23* 3.33* -- 2.28* 3.86* -- 3.13* CALCIUM mg/dL 9.0 8.8 -- 8.3* 9.1 -- 9.2 MAGNESIUM mg/dL -- -- -- 1.7* -- 1.9 1.8 Hepatic: Lab Results Component Value Date AST 11 03/19/2025 AST 12 03/18/2025 AST 10 03/17/2025 ALT 6 03/19/2025 ALT 8 03/18/2025 ALT 6 03/17/2025 ALKPHOS 132 (H) 03/19/2025 ALKPHOS 115 03/18/2025 ALKPHOS 100 03/17/2025 BNP Lab Results Component Value Date BNP 951 (H) 03/16/2025 Albumin: Lab Results Component Value Date ALBUMIN 3.3 03/19/2025 CBC Results from last 7 days Lab Units 03/19/25 0649 03/18/25 0503 03/18/25 0203 03/17/25 0740 03/17/25 0223 03/16/25 1132 03/15/25 1739 WBC 10^9/L 4.3 -- 4.6 -- 5.0 8.1 9.4 HEMOGLOBIN g/dL 7.9* 7.4* 7.2* 8.0* 7.0* 8.1* 9.4* HEMATOCRIT % 23.8* -- 21.6* 24.0* 20.5* 23.9* 27.3* PLATELETS 10^9/L 118* -- 109* -- 77* 84* 96* Results from last 7 days Lab Units 03/19/25 0649 03/18/25 0203 03/17/25 0223 03/16/25 1917 BEDSIDE GLUCOSE mg/dL -- -- 180* 118* GLUCOSE mg/dL 126* 166* 122* -- Urine Studies: Lab Results Component Value Date COLOR Yellow 03/15/2025 TURBIDITY Clear 03/15/2025 SPECIFICGRA 1.015 03/15/2025 SPECIFICGRA 1.020 07/12/2012 NITRITE Negative 03/15/2025 PHURINE 7.0 03/15/2025 LEUKOCYTE Negative 03/15/2025 LEUKOCYTE Negative 07/12/2012 PROTEIN 100 mg/dL (A) 03/15/2025 KETONES Negative 03/15/2025 UROBILINOGEN 1.0 eu/dL 03/15/2025 UROBILINOGEN 0.2 07/12/2012 BLOODHGB Moderate (A) 03/15/2025 No results found for: URINECREATI , PROTUR , MICROALBUR , MICRAU No results found for: UPROCRTRAT , ALBCREATRA Urine Sodium: No components found for: TRAVIS Urine Potassium: No results found for: KUR Urine Chloride: No results found for: CLUR Urine Osmolarity: No components found for: OSMOU Urine Creatinine: No results found for: LABCREA Urine Eosinophils: No components found for: UEOS Urine Protein: No components found for: TPU Immunology Profile Lab Results Component Value Date CRP 1.6 (H) 02/25/2025 No results found for: HAV , HEPAIGM , HEPBIGM , HEPBCAB , HBEAG , HEPCAB SARITA: No results found for: SARITA C3:No results found for: C3 C4:No results found for: C4 MPO ANCA: No results found for: MPO PR3 ANCA: No components found for: PR3 hepatitis serologies ANTIGBM:No components found for: GBMABIGG HEPATITIS B SURFACE AG: Lab Results Component Value Date HEPBSAG Non-Reactive 02/25/2025 HEPATITIS C AB: No results found for: HEPCAB Electrophoresis: SPEP:No results found for: PROT , LABALPH , LABBETA , PATH UPEP:No results found for: LABPE Anemia Profile Lab Results Component Value Date WBC 4.3 03/19/2025 WBC 4.6 03/18/2025 HGB 7.9 (L) 03/19/2025 HGB 7.4 (L) 03/18/2025 HCT 23.8 (L) 03/19/2025 HCT 21.6 (L) 03/18/2025 PLT 118 (L) 03/19/2025 PLT 109 (L) 03/18/2025 Lab Results Component Value Date IRONSAT 30 02/25/2025 FERRITIN 551 (H) 02/25/2025 [id number] 226 02/25/2025 FOLATE >25.0 02/25/2025 Bone Mineral Profile No results found for: PTH Echocardiogram: Echo complete W/3D Recon Independ wkstn Result Date: 02/01/2025 1 1 [facility] Heart [facility] [address] [facility] [place] [id number] (fax) Echocardiogram-[facility] Name: TIMMY MUÑOZ Study Date: 02/01/2025 04:09 PM B/P: 144 mmHg/65 mmHg HR: 72 bpm Date of : 1955 Location: [facility] Height: 67 in. Age: 69 year(s) Patient Room: 3135 Weight: 210 lb. Gender: Male Patient Status: InPt BSA: 2.06 m2 Indication: Arrhythmia, Ischemic cardiomyopathy, CHF with low EF, Atrial Fibrillation, H/O NSTEMI, H/O ETOH abuse Examination: Echocardiogram (Complete), Lumason Contrast Image Quality: Fair Patient Consent: Procedure explained to patient Exam Details Contrast: I.V. dose of LumasonConclusions Left Ventricle: The left ventricle is normal size. Global left ventricular systolic function is moderately reduced. The EF is 35 % visually. Left ventricular wall thickness is mildly increased. Regional wall motion abnormalities (see diagram). Grade 3, severe diastolic dysfunction (reversible restrictive LV filling pattern). Right Ventricle: The right ventricle is mildly enlarged. Right ventricular systolic function appears reduced. Doppler studies suggest severely elevated right sided pressures. Left Atrium: The left atrium is moderately enlarged. Right Atrium: The right atrium is moderately enlarged. Mitral Valve: Mild to moderate mitral regurgitation. Aortic Valve: Trivial aortic valve regurgitation. Tricuspid Valve: Moderate tricuspid regurgitation. Aorta: The aortic root exhibits mild dilatation. Overall Conclusions: Due to suboptimal imaging Lumason contrast was administered for opacification and better delineation of endocardial borders. Measurements Left Ventricle Label Value Normal Value LVOTd 2.2 cm (19cm - 21cm) LVOT VTI 19.3 cm (18cm - 22cm) LVOT PGmax 4 mmHgLVEF visual 35 % LVDd, 2D 5.41 cm (4.2cm - 5.9cm) LVDs, 2D 4.04 cm (2.1cm - 4cm) IVSd, 2D 1.44 cm (0.6cm - 1.1cm) LVPWd, 2D 1.24 cm (0.6cm - 1cm) LV Mass, 2D ASE 309.38 g LV Mass Index, 2D ASE 150.2 g/m?? (50g/m?? - 102.4g/m??) RWT, MM 0.46 (0 - 0.42) LVSVI, 2D 34 ml/m2 LVOT PGmean 2 mmHg LVSV_LVOT73 ml Right Ventricle Label Value Normal Value RVDd, 2D 4.42 cm (1.9cm - 3.8cm) TAPSE 1.5 cm Left Atrium Label Value Normal Value LA Volume, BP 96 ml (18ml - 58ml) LADs, 2D 4.5 cm (3cm - 4cm) LAESV index, BP 46.6 ml/m?? Right Atrium Label Value Normal Value RA Area 28 cm?? Aortic Valve Label Value Normal Value AV DVI 0.58 AV VTI 35.1 cm Mitral Valve Label Value Normal Value MV E Vmax 1.19 m/s MV A Vmax 0.51 m/s MV E/A 2.33 MV E/E' lateral 14.4 MV E' lateral 0.08 m/s Tricuspid Valve Label Value Normal Value RA Pressure 8 mmHg RVSP 69 mmHg TR Vmax 3.89 m/s Aorta Label Value Normal Value AoRoot,2D 3.9 cm (1.4cm - 3.8cm) Great Vessels Label Value Normal Value IVC 2.6 cm (1.2cm - 2.3cm) Valvular Assessment LVOT 0.7 - 1.1 m/sec Aortic Valve 1.0 - 1.7 m/sec Mitral Valve 0.6 - 1.3 m/sec Tricuspid Valve 0.3 - 0.7 m/sec Pulmonic Valve 0.6 - 0.9 m/sec Regurgitation Trivial MildMod Moderate Trivial Stenosis No No No No Max Velocity 1.05 m/sec 1.82 m/s 1.19 m/sec Max Gradient 13.00 mmHg Mean Gradient 7.00 mmHg Valve Area 2.2 cm?? Findings Left Ventricle: The left ventricle is normal size. Global left ventricular systolic function is moderately reduced. The EF is 35 % visually. Left ventricular wall thickness is mildly increased. Regional wall motion abnormalities (see diagram). The basal anterior, basal anteroseptal, basal inferoseptal, basal inferior, mid anterior, mid anteroseptal, mid i nferoseptal, mid inferior, apical anterior, apical septal, apical inferior and apex left ventricular wall segments are hypokinetic. All remaining scored left ventricular wall segments are with no wall motion abnormalities. Grade 3, severe diastolic dysfunction (reversible restrictive LV filling pattern). No thrombus is identified in the left ventricle. Right Ventricle: The right ventricle is mildly enlarged. Right ventricular systolic function appears reduced. A pacemaker wire is seen in the right atrium and right ventricle. Doppler studies suggest severely elevated right sided pressures. Left Atrium: The left atrium is moderately enlarged. Right Atrium: The right atrium is moderately enlarged. Mitral Valve: There is nonspecific thickening of the mitral valve leaflet. Mild to moderate mitral regurgitation. No mitral valve stenosis. Aortic Valve: Aortic valve is tri-leaflet. Trivial aortic valve regurgitation. No aortic valve stenosis. Aortic leaflets exhibit mild calcification. Tricuspid Valve: Tricuspid valve appears normal. Moderate tricuspid regurgitation. No tricuspid valve stenosis. Pulmonic Valve: Pulmonary valve appears normal. Trivial pulmonary regurgitation. No pulmonic valve stenosis. Aorta: The aortic root exhibits mild dilatation. Great Vessels: IVC: The IVC is dilated. Respiratory inspiration greater than 50%. Pericardium: No pericardial effusion. Procedure Staff Reading Group: [facility] Referring Physician: JOE LONG Grease Man: PRACHI Baires Ordering Physician: RODOLFO MOORE Wall Motion Scores -1 - hyperkinesia, 0 - not evaluated, 1 - normal, 2 - hypokinesia, 3 - akinesia, 4 - dyskinesia Echo congenital limited W/O contrast Result Date: 12/22/2024 Left Ventricle: Severely reduced left ventricular systolic function with a visually estimated EF of15 - 20%. EF by visual approximation is 20%. Left ventricle size is normal. Moderately increased wall thickness. See diagram for wall motion findings. Normal diastolic function. Right Ventricle: Right ventricle size is normal. Lead present in the right ventricle. Normal systolic function. Aortic Valve: Mildly calcified cusps. Mitral Valve: Mildly thickened leaflets. Moderate regurgitation. Tricuspid Valve: Moderate to severe regurgitation. Severely elevated RVSP, consistent with severe pulmonary hypertension. RVSP is 75 mmHg. Image quality is adequate. Contrast used: Lumason. Left Ventricle Severely reduced left ventricular systolic function with a visually estimated EF of 15 - 20%. EF by visual approximation is 20%. Left ventricle size is normal. Moderately increased wall thickness. See diagram for wall motion findings. Normal diastolic function. Right Ventricle Right ventricle size isnormal. Lead present in the right ventricle. Normal systolic function. Left Atrium Left atrium sizeis normal. Right Atrium Lead present in the right atrium. Right atrium size is normal. IVC/SVC IVC diameter is dilated and decreases less than 50% during inspiration; therefore the estimated right atrial pressure is elevated (~15 mmHg). IVC size is normal. Mitral Valve Mildly thickened leaflets. Moderate regurgitation. No stenosis noted. Tricuspid Valve Valve structure is normal. Moderate to severe regurgitation. No stenosis noted. Severely elevated RVSP, consistent with severe pulmonary hypertension. RVSP is 75 mmHg. Aortic Valve Mildly calcified cusps. No regurgitation. No stenosis. Pulmonic Valve The pulmonic valve visualization is suboptimal but appears to be functioning normally. Physiologically normal regurgitation. No stenosis noted. Ascending Aorta Normal sized aortic root and ascending aorta. Pericardium No pericardial effusion. Septum No interatrial shunt visualized with colorDoppler. Study Details Image quality: adequate. Heart rate was 66 bpm. The underlying ECG rhythm was sinus rhythm. Cardiac history: PPM/AICD. Color flow Doppler was performed and pulse wave and/or continuous wave Doppler was performed. Lumason contrast was given to enhance imaging. Wall Scoring Baseline Score Index: 1.76 The following segments are akinetic: basal inferoseptal, basal inferior, mid inferoseptal and apical septal. The following segments are hypokinetic: basal anteroseptal, mid anteroseptal, mid inferior, apical inferior and apex. All other segments are normal. Echo complete W/3D Recon Independ wkstn Result Date: 07/08/2024 1 1 [facility] Heart Station [address] [place] [address] [phone] (fax) Echocardiogram-[facility] Name: TIMMY MUÑOZ Study Date: 07/08/2024 12:08 PM B/P: 132 mmHg/68 mmHg HR: Date of : 1955 Location: [facility] Height: 67 in. Age: 69 year(s) Patient Room: 3135 Weight: 230 lb. Gender: Male Patient Status: InPt BSA: 2.15 m2 Indication: CHF with low ejection fraction Examination: Echocardiogram (Complete), Lumason Contrast Image Quality: Fair Patient Consent: Procedure explained to patient Conclusions Left Ventricle: The left ventricle is normal size. Global left ventricular systolic function is severely reduced. The EF is 10 % visually. Left ventricular wall thickness is normal. Diffuse global hypokinesis.Right Ventricle: The right ventricle is enlarged. Right ventricular systolic function appears reduced. Doppler studies suggest moderately elevated right sided pressures (elevated pulmonary pressure).Left Atrium: The left atrium is moderately enlarged. Right Atrium: The right atrium is moderately enlarged. Mitral Valve: Mild mitral regurgitation. Tricuspid Valve: Moderate tricuspid regurgitation.Great Vessels: IVC: The IVC is dilated. There is no inspiratory collapse of the IVC. Overall Conclusions: Due to suboptimal imaging Lumason contrast was administered for opacification and better delineation of endocardial borders. Measurements Left Ventricle Label Value Normal Value LVOT VTI 10.5 cm (18cm - 22cm) LVOT PGmax 1 mmHg LVEF visual 10 % LVDd, 2D 5.28 cm (4.2cm - 5.9cm) LVDs, 2D 4.62 cm(2.1cm - 4cm) IVSd, 2D 1.33 cm (0.6cm - 1.1cm) LVPWd, 2D 1.07 cm (0.6cm - 1cm) LV Mass, 2D ASE 255.01 g LV Mass Index, 2D ASE 118.6 g/m?? (50g/m?? - 102.4g/m??) RWT, MM 0.41 (0 - 0.42) LVSVI, 2D 16.7ml/m2 LVOT PGmean 1 mmHg Right Ventricle Label Value Normal Value RVDd, 2D 4.59 cm (1.9cm - 3.8cm) TAPSE 0.78 cm Left Atrium Label Value Normal Value LA Volume, BP 87 ml (18ml - 58ml) LAESV index, BP40.5 ml/m?? Right Atrium Label Value Normal Value RA Area 24.2 cm?? Aortic Valve Label Value NormalValue AV DVI 0.44 AV VTI 21.7 cm Mitral Valve Label Value Normal Value MV E' lateral 0.08 m/s Tricuspid Valve Label Value Normal Value RA Pressure 15 mmHg RVSP 47 mmHg TR Vmax 2.82 m/s Aorta Label Value Normal Value AoRoot, 2D 3.8 cm (1.4cm - 3.8cm) Valvular Assessment LVOT 0.7 - 1.1 m/sec Aortic Valve 1.0 - 1.7 m/sec Mitral Valve 0.6 - 1.3 m/sec Tricuspid Valve 0.3 - 0.7 m/sec Pulmonic Valve 0.6- 0.9 m/sec Regurgitation No Mild Moderate Trivial Max Velocity 0.57 m/sec 1.30 m/s 0.84 m/s Max Gradient 7.00 mmHg 3.00 mmHg Mean Gradient 3.00 mmHg Findings Left Ventricle: The left ventricle is normal size. Global left ventricular systolic function is severely reduced. The EF is 10 % visually. Left ventricular wall thickness is normal. Diffuse global hypokinesis. Right Ventricle: The right ventricle is enlarged. Right ventricular systolic function appears reduced. Doppler studies suggest moderately elevated right sided pressures (elevated pulmonary pressure). Left Atrium: The left atrium is moderately enlarged. Right Atrium: The right atrium is moderately enlarged. Mitral Valve: There isnonspecific thickening of the mitral valve leaflet. Mild mitral regurgitation. Aortic Valve: Focal aortic cusp thickening is noted. No aortic valve regurgitation. Tricuspid Valve: Normal tricuspid valve. Moderate tricuspid regurgitation. Pulmonic Valve: Normal pulmonary valve. Trivial pulmonary regurgitation. Aorta: The aortic root exhibits normal size. Great Vessels: IVC: The IVC is dilated. There is no inspiratory collapse of the IVC. Pericardium: No pericardial effusion. Procedure Staff Reading Group: [facility] Grease Man: Morena Green RDCS Ordering Physician: PIERRE AKINS Echo congenital limited W/O contrast Result Date: 01/26/2024 Left Ventricle: Moderately reduced left ventricular systolic function with a visually estimated EF of 35 - 40%. EF by 2D Simpsons Biplane is 36%. Left ventricle size is normal. Mild posterior thickening. Moderate septal thickening. Moderate hypokinesis of the following segments: basal inferior, midinferior and mid inferoseptal. Diastolic function indeterminate in the setting of atrial fibrillation. Right Ventricle: Right ventricle is mildly dilated. Lead present in the right ventricle. Mitral Valve: Moderate regurgitation with a centrally directed jet. Tricuspid Valve: Mild to moderate regurgitation with a centrally directed jet. The estimated RVSP is 87 mmHg. Severely elevated RVSP, consistent with severe pulmonary hypertension. Aorta: Normal sized ascending aorta. Mildly dilated aorticroot. Ao root diameter is 4.1 cm. No previous studies were available for comparison. Left VentricleModerately reduced left ventricular systolic function with a visually estimated EF of 35 - 40%. EF by 2D Simpsons Biplane is 36%. Left ventricle size is normal. Mild posterior thickening. Moderate septal thickening.Moderate hypokinesis of the following segments: basal inferior, mid inferior and midinferoseptal. Diastolic function indeterminate in the setting of atrial fibrillation. Right Ventricle Right ventricle is mildly dilated. Lead present in the right ventricle. Normal systolic function.Left Atrium Left atrium size is normal. Right Atrium Lead present in the right atrium. Right atriumsize is normal. IVC/SVC IVC diameter is less than or equal to 21 mm and decreases greater than 50% during inspiration; therefore the estimated right atrial pressure is normal (~3 mmHg). IVC size is normal. Mitral Valve Valve structure is normal. Moderate regurgitation with a centrally directed jet.No stenosis noted. Tricuspid Valve Valve structure is normal. Mild to moderate regurgitation with acentrally directed jet. The estimated RVSP is 87 mmHg. No stenosis noted. Severely elevated RVSP, consistent with severe pulmonary hypertension. Aortic Valve Valve structure is normal. Trace regurgita tion. No stenosis. Pulmonic Valve The pulmonic valve visualization is suboptimal but appears to be functioning normally. Mild regurgitation. No stenosis noted. Ascending Aorta Normal sized ascending aorta. Mildly dilated aortic root. Ao root diameter is 4.1 cm. Pericardium No pericardial effusion. Pulmonary Artery Main pulmonary artery is mildly dilated. Study Details Image quality: adequate. No contrast was given. Echo limited W/O contrast Result Date: 04/08/2023 APPROVED REPORT Conclusion Mild left ventricular enlargement Mild concentric LVH Mild to moderate global LV systolic dysfunction with no obvious segmental wall motion abnormalities-ejection fraction 40% Grossly normal right-sided chamber dimensions Trileaflet aortic valve with mild calcification but no stenosis Grossly normal mitral valve No pericardial effusion Left Ventricle Left ventricle is mildly dilated. Mild to moderate overall LV systolic dysfunction with no major discrete wall motion abnormalities Borderline concentric left ventricular hypertrophy. General global hypokinesis The diastolic function was not assessed. LVEF is 40%. Right Ventricle The right ventricle is normal size. Right ventricular systolic function could not be assessed. Atria Left atrium is borderline dilated. The right atrium size is normal. The right atrium size is normal. Aortic Valve Trileaflet valve with mild fibrocalcific changes and normal opening in systole The aortic valve is normal in structure. There is no aortic valvular stenosis. Tricuspid Valve The tricuspid valve is normal in structure. Pulmonic Valve Pulmonic valve is not well visualized. Great Vessels The aortic root is normal in size. The IVC was not visualized. Pericardium There is no pericardial effusion. EXAM: Limited 2D Echocardiogram Imaging system used: Bee Resilient 2D Dimensions LVDd 5.5 cm M: 4.2 - 5.8 LVEF (Roberts's) 47.11 % M: 52 - 72 LVDs 4.58 cm M: 2.5 - 4.0 EF AP4-a2DQ 41.12 % EF AP2-a2DQ 50.69 % EF BP-a2DQ 47.11 % LVESV 89 mL LVEDV 167.48 mL M: 62 - 150 LV Volume Index 72.50 mL/m2 M: 34 - 74 Thank you for the consultation. Please do not hesitate to contact us for any further questions/concerns. We will continue to follow along with you. * Sarwat Salas RN - 03/20/2025 2:18 PM EST Images from the original note were not included. FOLLOW-UP: Post-Intensive Care Rounding Note Patient: Timmy Muñoz : 1955 Age: 70 y.o. Length of Stay: 4 days Admission Diagnosis: ESRD (end stage renal disease) ([facility]) [N18.6] Pneumonia of right lower lobe due to infectious organism [J18.9] Sepsis with encephalopathy and septic shock, due to unspecified organism ([facility]) [A41.9, R65.21, G93.41] Reviewing patient due to his recent transfer out from Intensive Care. Recorded vital signs are stable and the patient is not noted to be in any apparent distress. Telemetry and monitoring noted. Staff may call with any issues or concerns regarding his clinical presentation or stability. Thank you, Sarwat Salas RN Rapid Response: [facility] * Ricarda Reece MD - 03/20/2025 11:[address] [facility] PROGRESS NOTE 03/20/2025 Patient Name: Timmy Muñoz : 1955 Hospital Day: 5 Chief complaint: Chief Complaint Patient presents with Altered Mental Status SUBJECTIVE Patient seen and examined bedside. No acute events overnight. Patient sitting comfortably in bed having breakfast with nursing teacher assistance. Did not want to be-door examined and did not want to interact with physician. Care of patient discussed with RN at bedside. No concerns OBJECTIVE Vital Signs: BP 151/79 Pulse 86 Temp 36.4 ??C (97.5 ??F) (Oral) Resp 18 Wt 86.1 kg (189 lb 13.1 oz) SpO2 97% BMI 29.73 kg/m?? Weight: Body mass index is 29.73 kg/m??. Admission weight: 86.5 kg (190 lb 11.2 oz) Wt Readings from Last 3 Encounters: 03/20/25 86.1 kg (189 lb 13.1 oz) 03/16/25 83 kg (183 lb) 02/28/25 83.4 kg (183 lb 13.8 oz) Input/Output: Intake/Output Summary (Last 24 hours) at 03/20/2025 1140 Last data filed at 03/20/2025 0226 Gross per 24 hour Intake 107.14 ml Output 200 ml Net -92.86 ml Physical Exam: Physical Exam Constitutional No distress. Pulmonary/Chest: Effort normal. No respiratory distress. Neurological He is alert. Physical exam limited as patient did not permit and got agitated Labs/Imaging: Recent Results (from the past 48 hours) Cortisol Collection Time: 03/18/25 2:24 PM Result Value Ref Range CORTISOL, TOTAL 17.2 ug/dL Narrative Due to the diurnal variation of cortisol levels in normal subjects, all cortisol measurments should be referenced to the time of day of sample collection. AM Cortisol Age>=6 6.7-22.4 ug/dL PM Cortisol Age>=6 <10 ug/dL Blood culture #1 Collection Time: 03/19/25 6:49 AM Specimen: Blood, Venous Result Value Ref Range CULTURE RESULTS NO GROWTH 1 DAY Narrative Suboptimal volume of blood collected, Results may be affected. Blood culture #2 Collection Time: 03/19/25 6:49 AM Specimen: Blood, Venous Result Value Ref Range CULTURE RESULTS NO GROWTH 1 DAY Narrative Suboptimal volume of blood collected, Results may be affected. Comprehensive metabolic panel Collection Time: 03/19/25 6:49 AM Result Value Ref Range SODIUM 140 134 - 146 mmol/L POTASSIUM 3.9 3.5 - 5.0 mmol/L CHLORIDE 104 98 - 109 mmol/L CARBON DIOXIDE 27 22 - 32 mmol/L ANION GAP 9 5 - 15 mmol/L BLOOD UREA NITROGEN 34 (H) 5 - 27 mg/dL CREATININE 2.23 (H) 0.60 - 1.30 mg/dL GLUCOSE 126 (H) 65 - 99 mg/dL CALCIUM 9.0 8.5 - 10.5 mg/dL TOTAL PROTEIN 6.4 6.0 - 8.0 g/dL ALBUMIN 3.3 3.2 - 5.3 g/dL ALKALINE PHOSPHATASE 132 (H) 39 - 130 U/L AST 11 <=41 U/L ALT 6 <=40 U/L BILIRUBIN,TOTAL 0.7 0.3 - 1.2 mg/dL EGFR Non-Race Dependent 31 (L) >=60 ml/min/1.73sq.m CBC auto differential Collection Time: 03/19/25 6:49 AM Result Value Ref Range WBC 4.3 4 - 11 10^9/L RBC Count 2.53 (L) 4.1 - 5.7 10^12/L Hemoglobin 7.9 (L) 13 - 17 g/dL Hematocrit 23.8 (L) 39 - 50 % MCV 94 80 - 100 fL MCH 31.3 27 - 34 pg MCHC 33.2 32 - 36 g/dL RDW 19.4 (H) 11.5 - 15 % Platelet Count 118 (L) 150 - 450 10^9/L MPV 8.0 7 - 12 fL Neutrophils % 70.1 % Lymphocytes % 10.2 % Monocytes % 11.4 % Eosinophils % 7.7 % Basophils % 0.6 % Neutrophils Absolute (A) 3.0 1.5 - 6.6 10^9/L Lymphocytes Absolute 0.4 (L) 1.0 - 3.5 10^9/L Monocytes Absolute 0.5 0.0 - 0.9 10^9/L Eosinophils Absolute 0.3 0.0 - 0.4 10^9/L Basophils Absolute 0.0 0.0 - 0.2 10^9/L Differential Type AUTOMATED DIFFERENTIAL Available imaging and microbiology data has been reviewed in detail and is available in full per EMR. Medications: Reviewed extensively, available in full per EMR ASSESSMENT Septic shock present on admission-resolved Acute metabolic encephalopathy in setting of sepsis Acute on chronic respiratory failure with hypoxia-resolved. Currently on room air. Supposed to be using 2 L/min nasal cannula at baseline Right lower lobe bacterial pneumonia Enterococcus UTI Oropharyngeal dysphagia on level 4 pureed diet and no liquids. Per chart review patient refusing PEG tube placement. COPD on home oxygen-no exacerbation ESRD on hemodialysis MWF Chronic systolic heart failure with no exacerbation Paroxysmal atrial fibrillation status post Maze on Eliquis Coronary artery disease status post CABG and stent. Brilinta on hold for history of GI bleed and anemia Normocytic anemia -stable Chronic thrombocytopenia Sick sinus syndrome status post pacemaker Diabetes mellitus type 2 BPH on [facility] delirium PLAN Telemetry Continuous pulse oximetry and use supplemental oxygen to maintain sats more than 90% Bronchopulmonary hygiene Breathing treatments PRN Aspiration precautions Diet per speech therapy. Will need repeat swallow study in 2 days On daptomycin and meropenem per ID. Monitor CK on daptomycin. No statins while on daptomycin Follow repeat blood cultures from 03/16 and 03/19-negative till date Monitor blood pressure closely. Continue holding antihypertensives. GDM T on hold for hypotension. Will need to confirm amiodarone it is not there in current med list.But he is supposed to be on it per chart review. Continue aspirin and Eliquis Monitor CBC closely PT OT/encourage ambulation and out of bed into chair Delirium precautions DVT prophylaxis-Eliquis Code status-full code Discharge disposition-[facility] facility This note was created with the assistance of a speech-recognition program. Every effort was made toensure accuracy; however, inadvertent computerized mailing jogger errors may be present. Electronically signed by: RICARDA REECE MD 03/20/2025 11:40 AM * Trena Sanford APRN-AQUATIC FACILITY MANAGER - 03/20/2025 9:02 AM EST Images from the original note were not included. [facility] - Daily Progress Note Timmy Muñoz Admission date/time 03/16/2025 5:16 AM Today's Date and Time: 03/20/2025, 9:03 AM Impression : Septic shock Fever Aspiration pneumonia Right basilar infiltrate Enterococcus UTI History of ESBL E coli UTI February 2025 Altered mental status COPD CAD status post stenting and CABG Ischemic cardiomyopathy Heart failure with reduced ejection fraction AFib on Eliquis Hypertension End-stage renal disease on hemodialysis Type 2 diabetes mellitus Anemia Thrombocytopenia Prolonged QTC Recommendations: Chest x-ray 03/19/2025: IMPRESSION: Airspace infiltrate at the right lung base appears more extensive than on the previous study suggestive of pneumonia. ECG 03/16/2025: Prolonged QTC of 512 Cultures Blood cultures x2 03/19/2025 in process Blood cultures x2 03/16/2025 in process MRSA PCR 03/16/2025 finalized negative Respiratory pathogen panel 03/16/2025 final negative Urine culture 03/15/2025 positive for Enterococcus Blood cultures x2 03/15/2025 in process Previous admission Urine culture 02/24/2025 positive for ESBL E coli. Antibiotics Continue daptomycin and meropenem No statins while on daptomycin Check and monitor CK level - result today is pending Nephrology and palliative medicine on consult Follow-up WBC platelets creatinine LFT ID clinic in 2-3 weeks Supportive care FOLLOW UP/chief complaints Aspiration pneumonia, Enterococcus UTI Interval History: The patient was seen resting in bed. Afebrile. Denies nausea, vomiting, diarrhea, itch, rash. ROS: Negative except as above Social History: Social History Socioeconomic History Marital status: Single Spouse name: Not on file Number of children: Not on file Years of education: Not on file Highest education level: Not on file Occupational History Not on file Tobacco Use Smoking status: Never Smokeless tobacco: Never Tobacco comments: 02/25 TEO - AMS, unable to reach family. Per [place] pt does not have history of smoking on file with them Vaping Use Vaping status: Unknown Substance and Sexual Activity Alcohol use: Defer Comment: 02/25 TEO - AMS, unable to reach family. Drug use: Not on file Comment: 02/25 TEO - AMS, unable to reach family. Sexual activity: Not on file Other Topics Concern Not on file Social History Narrative Not on file Social Drivers of Health Financial Resource Strain: Low Risk (01/31/2025) Received from [facility] Overall Financial Resource Strain (CARDIA) Difficulty of Paying Living Expenses: Not hard at all Food Insecurity: No Food Insecurity (03/19/2025) Hunger Screening Food Insecurity - Worry: Never True Food Insecurity - Inability: Never True Transportation Needs: No Transportation Needs (02/25/2025) PRAPARE - Transportation Lack of Transportation (Medical): No Lack of Transportation (Non-Medical): No Physical Activity: Not on file Stress: Not on file Social Connections: Not on file Interpersonal Safety: Patient Unable To Answer (02/25/2025) Humiliation, Afraid, Rape, and Kick questionnaire Fear of Current or Ex-Partner: Patient unable to answer Emotionally Abused: Patient unable to answer Physically Abused: Patient unable to answer Sexually Abused: Patient unable to answer Housing Instability: Low Risk (02/25/2025) Housing Instability Housing Instability: No Family History: Family History Family history unknown: Yes Physical Examination : Vitals: 03/20/25 0253 03/20/25 0603 03/20/25 0810 03/20/25 0811 BP: 151/79 Pulse: 89 86 86 Resp: 18 18 Temp: 36.4 ??C (97.5 ??F) TempSrc: Oral SpO2: 100% 94% 99% Weight: 86.1 kg (189 lb 13.1 oz) Temperature Range: Temp: 36.4 ??C (97.5 ??F) Temp Av.6 ??C (97.9 ??F) Min: 36.4 ??C (97.5 ??F)Max: 36.8 ??C (98.2 ??F) General Appearance: Awake, alert, and in no apparent distress Pulmonary/Chest: Clear to auscultation, without wheezes, rales, or rhonchi Cardiovascular: Regular rate and rhythm without murmurs, rubs, or gallops. Abdomen: soft, non-tender, without masses or organomegaly, normal bowel sounds Extremities: No cyanosis, clubbing, edema, or effusions. Skin:no unusual rash Laboratory data: I have independently reviewed the following labs: Results from last 7 days Lab Units 03/19/25 0649 03/18/25 0503 03/18/25 0203 03/17/25 0740 03/17/25 0223 WBC 10^9/L 4.3 -- 4.6 -- 5.0 HEMOGLOBIN g/dL 7.9* 7.4* 7.2* 8.0* 7.0* HEMATOCRIT % 23.8* -- 21.6* 24.0* 20.5* PLATELETS 10^9/L 118* -- 109* -- 77* Results from last 7 days Lab Units 03/19/25 0649 03/18/25 0203 03/17/25 0627 03/17/25 0223 03/16/25 1132 03/16/25 0135 03/15/25 1739 POTASSIUM mmol/L 3.9 3.9 4.3 3.5 < > -- 4.0 CHLORIDE mmol/L 104 101 -- 105 < > -- 100 CO2 mmol/L 27 23 -- 24 < > -- 24 BUN mg/dL 34* 52* -- 34* < > -- 51* CREATININE mg/dL 2.23* 3.33* -- 2.28* < > -- 3.13* EGFR (CKD-EPI) NON-RACE DEPENDENT ml/min/1.73sq.m 31* 19* -- 30* < > -- 20* CALCIUM mg/dL 9.0 8.8 -- 8.3* < > -- 9.2 MAGNESIUM mg/dL -- -- -- 1.7* -- 1.9 1.8 < > = values in this interval not displayed. Results from last 7 days Lab Units 03/19/25 0649 03/18/25 0203 03/17/25 0223 ALK PHOS U/L 132* 115 100 ALT U/L 6 8 6 AST U/L 11 12 10 Lab Results Component Value Date CRP 1.6 (H) 02/25/2025 No results found for: SEDRATE Cultures: Microbiology Results Procedure Component Value Units Date/Time Blood culture #1 [[id number]] Collected: 03/19/2549 Specimen: Blood, Venous Updated: 03/20/25 0801 CULTURE RESULTS NO GROWTH 1 DAY Narrative: Suboptimal volume of blood collected, Results may be affected. Blood culture #2 [[id number]] Collected: 03/19/25 0649 Specimen: Blood, Venous Updated: 03/20/25 0801 CULTURE RESULTS NO GROWTH 1 DAY Narrative: Suboptimal volume of blood collected, Results may be affected. Blood culture #1 [[id number]] Collected: 03/16/25 1035 Specimen: Blood, Venous Updated: 03/19/25 1101 CULTURE RESULTS NO GROWTH 3 DAYS Narrative: Suboptimal volume of blood collected, Results may be affected. Blood culture #2 [[id number]] Collected: 03/16/25 1035 Specimen: Blood, Venous Updated: 03/19/25 1101 CULTURE RESULTS NO GROWTH 3 DAYS Narrative: Suboptimal volume of blood collected, Results may be affected. Mrsa Pcr nasal swab [[id number]] (Normal) Collected: 03/16/25 0748 Specimen: Swab from Nostril Updated: 03/16/25 0959 MRSA PCR NASAL Negative Resp Pathogens Panel/SARS CoV-2 [[id number]] (Normal) Collected: 03/16/25 0748 Specimen: Swab from Nasopharynx Updated: 03/16/25 0949 SARS COV 2 BY PCR Not Detected ADENOVIRUS Not Detected CORONAVIRUS 229E Not Detected CORONAVIRUS HKU1 Not Detected CORONAVIRUS NL63 Not Detected CORONAVIRUS OC43 Not Detected HUMAN METAPNEUVIRUS Not Detected RHINO/ENTEROVIRUS Not Detected INFLUENZA A Not Detected INFLUENZA B Not Detected PARAINFLUENZA 1 Not Detected PARAINFLUENZA 2 Not Detected PARAINFLUENZA 3 Not Detected PARAINFLUENZA 4 Not Detected RESP SYNCYTIAL VIRUS Not Detected BORD PARAPERTUSSIS Not Detected BORDETELLA PERTUSSIS Not Detected CHLAM.PNEUMONIAE Not Detected MYCOPLASMA PNEUMONIAE Not Detected Narrative: The [employer] Respiratory Panel 2.1 (RP2.1) is a multiplexed nucleic acid test intended for the simultaneous qualitative detection and differentiation of nucleic acid from multiple viral and bacterial respiratory organisms, including nucleic acid from Severe Acute Respiratory Syndrome Coronavirus 2 (SARS-CoV-2), in nasopharyngeal swabs obtained from individuals suspected of COVID-19 by their healthcare provider. Testing is limited to laboratories certified under the Clinical Laboratory Improvement Amendments of 1988 (CLIA), to perform high complexity or moderate complexity tests. SARS-CoV-2 RNA and nucleic acids from the other respiratory viral and bacterial organisms identified by this test are generally detectable in nasopharyngeal swabs during the acute phase of infection.The detection and identification of specific viral and bacterial nucleic acids from individuals exhibiting signs and/or symptoms of respiratory infection is indicative of the presence of the identified microorganism and aids in the diagnosis of respiratory infection if used in conjunction with other clinical and epidemiological information. Positive results are indicative of the presence of the identified organism, but do not rule out co-infection with other pathogens. The agent(s) detected by the [employer] RP2.1 may not be the definite cause of disease and clinical correlation with patient history and other diagnostic information is necessary to determine patient infection status. Negative results in the setting of a respiratory illness may be due to infection with pathogens notdetected by this test, or lower respiratory tract infection that may not be detected by a nasopharyngeal specimen. Negative results do not preclude SARS-CoV-2 infection and should not be used as the sole basis for patient management decisions. Negative HORACIO-CoV-2 results must be combined with clinical observations, patient history and epidemiological information. Negative results for other organisms identified by the test may require additional laboratory testing when evaluating a patient with possible respiratory tract infection. Urine Culture Urine, Indwelling Catheter [[id number]] (Abnormal) (Susceptibility) Collected: 03/15/251750 Specimen: Urine, Indwelling Catheter Updated: 03/18/25 0820 CULTURE RESULTS 50,000-100,000 CFU/mL Enterococcus species Susceptibility Enterococcus species Method Not Specified Ampicillin >=32.0 Resistant Levofloxacin >=8.0 Resistant Nitrofurantoin 32 Susceptible Vancomycin <=0.5 Susceptible Blood culture [[id number]] Collected: 03/15/251738 Specimen: Blood, Venous Updated: 03/20/25 0002 CULTURE RESULTS NO GROWTH 4 DAYS Narrative: Suboptimal volume of blood collected, Results may be affected. Blood culture [[id number]] Collected: 03/15/251738 Specimen: Blood, Venous Updated: 03/20/25 0002 CULTURE RESULTS NO GROWTH 4 DAYS Narrative: Suboptimal volume of blood collected, Results may be affected. Imaging Studies: Fluoroscopy swallow motility function Result Date: 03/19/2025 FL SWALLOW MOTILITY FUNCTION HISTORY: Oropharyngeal dysphagia COMPARISON: None TECHNIQUE: Video fluoroscopic swallow study was performed in conjunction with speech pathologist. Barium contrast materials of varying consistencies administered. FINDINGS: Fluoroscopy time: 2.6 Reference air kerma: 5.4 mGy Runs: 13 Thin: Aspiration Mildly thick: Aspiration Moderately thick: Aspiration Applesauce: No penetration or aspiration. Fruit: No penetration or aspiration. IMPRESSION: 1. Abnormal swallow studyas described above 2. Please correlate with dedicated speech pathology report for additional details and recommendations. Approved by Edward Teran MD on 03/19/2025 10:31 AM Kwesi Zamorano have personally reviewed the image(s) and agree with and/or edited the report Finalized by Kwesi Cleary on 03/19/2025 10:39 AM X-ray chest 1 view Result Date: 03/19/2025 History: Follow-up for infiltrate right lung. Exam/Technique: Portable upright AP chest Comparison:03/16/2025 Findings: Right-sided tunneled dialysis catheter, transvenous pacemaker, and changes fromprevious open heart surgery all unaltered. Infiltrate at the right lung base appears more extensivethan on the previous study.. Cardiomegaly appears unchanged with interval increase in vascular congestion IMPRESSION: Airspace infiltrate at the right lung base appears more extensive than on the previous study suggestive of pneumonia. Pulmonary vascular congestion has also increased. Finalized by Erwin Rivero MD on 03/19/2025 5:03 AM Medications: amiodarone, 200 mg, oral, Daily apixaban, 5 mg, oral, BID ARIPiprazole, 10 mg, oral, Daily aspirin, 81 mg, nasogastric, Daily budesonide, 0.5 mg, nebulization, Q12H busPIRone, 15 mg, nasogastric, TID cholecalciferol (vitamin D3), 1,000 Units, nasogastric, Daily cyanocobalamin, 1,000 mcg, nasogastric, Daily DAPTOmycin (CUBICIN) IV, 500 mg, intravenous, Q48H darbepoetin syliwa (ARANESP) injection, 60 mcg, subcutaneous, Weekly DULoxetine, 20 mg, oral, Daily ferrous sulfate, 325 mg, nasogastric, Daily with breakfast gabapentin, 100 mg, oral, TID ipratropium-albuteroL, 3 mL, nebulization, Q6H [COMPLETED] meropenem, 500 mg, intravenous, Once FOLLOWED BY meropenem, 500 mg, intravenous, Q24H midodrine, 10 mg, oral, TID pantoprazole, 40 mg, oral, QAM AC risperiDONE, 3 mg, oral, Nightly rivastigmine, 1 patch, transdermal, Daily sodium chloride, 10 mL, intravenous, Q96H sodium chloride, 10 mL, intravenous, Q96H sodium chloride, 30 mL, intravenous, Q8H AND sodium chloride, 10 mL, intravenous, PRN AND sodium chloride, 20 mL, intravenous, PRN sodium citrate, 1.6 mL, intravenous, Q96H sodium citrate, 1.6 mL, intravenous, Q96H tamsulosin, 0.4 mg, oral, Daily topiramate, 200 mg, nasogastric, BID Thank you for allowing us to participate in the care of this patient. Please call with questions. TIMOTEO Smart This note was completed using a voice mailing jogger system. Every effort was made to ensure accuracy. However, inadvertent computerized mailing jogger errors may be present. TIMOTEO Peña 03/20/25 1124 * Aurelio Bourgeois RN - 03/19/2025 7:30 PM EST Images from the original note were not included. FOLLOW-UP: Post-Intensive Care Rounding Note Patient: Timmy Muñoz : 1955 Age: 70 y.o. Length of Stay: 3 days Admission Diagnosis: ESRD (end stage renal disease) ([facility] [N18.6] Pneumonia of right lower lobe due to infectious organism [J18.9] Sepsis with encephalopathy and septic shock, due to unspecified organism ([facility]) [A41.9, R65.21, G93.41] Reviewing patient due to his recent transfer out from Intensive Care. Recorded vital signs are stable and the patient is not noted to be in any apparent distress. Telemetry and monitoring noted. Staff may call with any issues or concerns regarding his clinical presentation or stability. Thank you, Aurelio Bourgeois RN Rapid Response: [facility] * Maritza Sharma MD - 03/19/2025 1:41 PM EST Images from the original note were not included. [facility] Matt Goncalves, AQUATIC FACILITY MANAGER Nephrology Brief Progress Note Patient Name: Timmy Muñoz : 1955 Date of Service: 03/19/25 PCP: GATO CHA MD Attending Physician: Landy Ness MD Admission Date: 03/16/2025 Length of stay: LOS: 3 days Assessment and Plan. 70-year-old male with a past medical history significant for end-stage renal disease (ESRD) on hemodialysis (Friday, , Friday schedule) since 12/23/2024 at [facility] under the care of Dr. Matt Sharma, chronic systolic heart failure with reduced ejection fraction (HFrEF) of 35%, paroxysmal atrial fibrillation on Eliquis, type 2 diabetes mellitus, and COPD on 2 liters of oxygen at baseline presented to the emergency department with altered mental status on 03/16/2025. The patient was initially at [facility] where a stroke alert was called for left-sided deficit, facial droop, and slurring of speech. CT of the brain was negative for acute pathology. A chest x-ray revealed a right lower lobe infiltrate, and the altered mental status was attributed to an infectious etiology. The patient was started on vancomycin and cefepime. While being transferred to [facility], he developed hypotension, unresponsiveness, and fever, prompting his return to the [facility] ED. There, a right femoral central line was placed, and he was started on vasopressor support with Levophed. He was subsequently transferred to the ICU at this facility for septic shock. Upon arrival in the ICU, he was noted to be alert but confused and not following commands, requiring Levophed. Nephrology consultation was requested for management of ESRD and planning for hemodialysis in thesetting of critical illness. Assessment End stage renal disease (ESRD) on maintenance hemodialysis, Friday, , Friday schedule [facility] under the care of Dr. Matt Sharma. Electrolyte Abnormalities: Stable. Acid-Base status: No significant acidosis or alkalosis. Volume Status: Appears euvolemic. Blood pressure remains on the low side. Net I/O over last 24 hours is -53.84 ml. Hypertension: Home antihypertensives are held due to hypotension. Hemodynamics: History of reduced LVEF EF 35% per last echo on 01/2025. Currently requires vasopressor support for hypotension. Anemia of CKD: Most recent hemoglobin is 7.2 g/dL. CKD-MBD / Renal Osteodystrophy: To be managed as per outpatient protocol. Sepsis secondary to right-sided pneumonia. Septic shock requiring vasopressor support. Acute on chronic hypoxic respiratory failure. COPD on 2L NC at baseline. Acute Metabolic encephalopathy, improving. Heart failure with reduced ejection fraction (HFrEF). Paroxysmal atrial fibrillation on Eliquis. Type 2 diabetes mellitus. Plan Patient was dialyzed 2 days in a row, no indication for hemodialysis today, next hemodialysis [facility] on Friday and he can then be transition to his op TTS schedule Loop diuretics for volume management as indicated Home medications including amiodarone, carvedilol, Lasix, Imdur, Entresto, spironolactone, and Flomax will be held for now. Can reintroduce once blood pressure is stable. KG per protocol. Pneumonia and respiratory failure management per primary service. Watch for volume and fluid overload given history of decreased ejection fraction of 35%. Consider cardiology evaluation for goal-directed medical therapy and medication adjustment. Recommend neurology evaluation given multiple sedative and psychotropic medications including Abilify, buspirone, Cymbalta, Neurontin, risperidone, rivastigmine, and Topamax. Dose all medication to GFR <10 ml/min. Strict ins and outs, renal chemistry, and monitoring in AM. Lab workup, imaging, chart workup reviewed in detail. Thank you for this consultation, we will follow along with you regarding care of this patient whilethe patient is here in the hospital, please call if you have any questions or concerns. MARITZA SHARMA MD on 03/19/2025 at 2:40 PM [facility] 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 Schedule : See [facility] on-call schedule for [facility] ( [facility] ) Nephrology [facility] chat : Available on Blink for iPhone and Android chat during working hours only, if no response please use answering service Perfect serve answering service: [phone], if no response please use utilization reviewer Physician Cell phone Cell Phone for utilization reviewer Physician : Use as back up, available on Blink for iPhone and Android on-call schedule * Shane Merritt [facility] - 03/19/2025 12:53 PM EST [facility] Department of Pharmacy Pharmacist to Physician Communication The dose of meropenem for UTI has been changed to 500 mg IV x 1 infused over 30 minutes followed by500 mg IV every 24 hours infused over 3 hours starting 24 hours after the loading dose per the [facility] approved renal dosing guidelines, based on hemodialysis patient and an estimated creatinine clearance is 28.4 mL/min (A) (by C-G formula based on SCr of 2.23 mg/dL (H)). Dose to be given after HD on di alysis days. Thank you, Shane Merritt [facility] * Sarwat Salas RN - 03/19/2025 12:01 PM EST Images from the original note were not included. FOLLOW-UP: Post-Intensive Care Rounding Note Patient: Timmy Muñoz : 1955 Age: 70 y.o. Length of Stay: 3 days Admission Diagnosis: ESRD (end stage renal disease) ([facility]) [N18.6] Pneumonia of right lower lobe due to infectious organism [J18.9] Sepsis with encephalopathy and septic shock, due to unspecified organism ([facility]) [A41.9, R65.21, G93.41] Reviewing patient due to his recent transfer out from Intensive Care. Recorded vital signs are stable and the patient is not noted to be in any apparent distress. Telemetry and monitoring noted. Staff may call with any issues or concerns regarding his clinical presentation or stability. Thank you, Sarwat Salas RN Rapid Response: [facility] * Katia Leyva RPH - 03/19/2025 11:36 AM EST [facility] Department of Pharmacy Pharmacist to Physician Communication The dose of daptomycin has been changed to 6 mg/kg using actual body weight (BMI < 30 mg/m2) every 48 hours per the [facility] approved dosing guidelines, based on body mass index is 29.04 kg/m??. and anestimated creatinine clearance is 28.4 mL/min (A) (by C-G formula based on SCr of 2.23 mg/dL (H)). Thank you, Katia Leyva RPH Indication: Enterococcus UTI Wt= 84.1 x 6 mg/kg = 504.5 mg, rounded to 500mg mg (nearest 1/4 vial size per [facility] policy) * Landy Ness MD - 03/19/2025 10:09 AM EST Images from the original note were not included. [facility] Progress Note 03/19/2025 Patient Name: Timmy Muñoz : 1955 Hospital Day: 4 SUBJECTIVE Follow-up for AMS The patient seen and examined. No acute events over night. The patient is AAOx2 per RN but he refused to answer my orientation questions. He denies any SOB or cough. No chest pain. No fevers or chills. No diarrhea. Past Medical History: Diagnosis Date Acute myocardial infarction ([facility]) Cardiac pacemaker in situ Chronic systolic heart failure ([facility]) Dependence on renal dialysis Diabetes mellitus without complication ([facility]) End stage renal disease ([facility]) Has a tremor 02/25/2025 admission Hypomagnesemia Hyposmolality syndrome PNA (pneumonia) Sepsis with encephalopathy and septic shock, due to unspecified organism ([facility]) 03/16/2025 Syncope and collapse No past surgical history on file. OBJECTIVE Vital Signs: Temp: [36.7 ??C (98 ??F)-37.4 ??C (99.3 ??F)] 36.7 ??C (98 ??F) Pulse: [77-96] 95 Resp: [13-26] 19 BP: (90-132)/(52-79) 107/56 FiO2 (%): [28 %] 28 % SpO2: [87 %-100 %] 98 % O2 Device: Nasal cannula O2 Flow Rate (L/min): [2 L/min-3 L/min] 3 L/min Weight: Body mass index is 29.04 kg/m??. Admission weight: 86.5 kg (190 lb 11.2 oz) Wt Readings from Last 3 Encounters: 03/18/25 84.1 kg (185 lb 6.5 oz) 03/16/25 83 kg (183 lb) 02/28/25 83.4 kg (183 lb 13.8 oz) Input/Output: Intake/Output Summary (Last 24 hours) at 03/19/2025 1008 Last data filed at 03/19/2025 0642 Gross per 24 hour Intake 435.95 ml Output 995 ml Net -559.05 ml Physical Exam: General appearance: Alert, cooperative, no distress. Eyes: PERRLA, EOM's intact Conjunctiva/corneas moist and clear, no pallor or icterus. ENT: Oropharynx clear with moist mucous membranes and no mucosal ulcerations. No thrush. External ears and nose are normal without lesions or scars. Respiratory: Normal work of breathing. No use of accessory muscles. No wheezing, rhonchi or crackles. Cardiovascular: Regular rate and rhythm, S1, S2 normal, no murmur, rub or gallop. No LE edema. Abdomen: Soft, non-tender, no masses. No hernia. No hepatosplenomegaly. Skin: No rashes, lesions or ulcers. No induration or subcutaneous nodules. Psychiatric: Mood and affect appropriate, Appropriate judgment and insight. The patient didn't demonstrate good understanding of his current diagnosis and reason for hospitalization. Labs/Imaging: Recent Results (from the past 24 hours) Cortisol Collection Time: 03/18/25 2:24 PM Result Value Ref Range CORTISOL, TOTAL 17.2 ug/dL Narrative Due to the diurnal variation of cortisol levels in normal subjects, all cortisol measurments should be referenced to the time of day of sample collection. AM Cortisol Age>=6 6.7-22.4 ug/dL PM Cortisol Age>=6 <10 ug/dL Comprehensive metabolic panel Collection Time: 03/19/25 6:49 AM Result Value Ref Range SODIUM 140 134 - 146 mmol/L POTASSIUM 3.9 3.5 - 5.0 mmol/L CHLORIDE 104 98 - 109 mmol/L CARBON DIOXIDE 27 22 - 32 mmol/L ANION GAP 9 5 - 15 mmol/L BLOOD UREA NITROGEN 34 (H) 5 - 27 mg/dL CREATININE 2.23 (H) 0.60 - 1.30 mg/dL GLUCOSE 126 (H) 65 - 99 mg/dL CALCIUM 9.0 8.5 - 10.5 mg/dL TOTAL PROTEIN 6.4 6.0 - 8.0 g/dL ALBUMIN 3.3 3.2 - 5.3 g/dL ALKALINE PHOSPHATASE 132 (H) 39 - 130 U/L AST 11 <=41 U/L ALT 6 <=40 U/L BILIRUBIN,TOTAL 0.7 0.3 - 1.2 mg/dL EGFR Non-Race Dependent 31 (L) >=60 ml/min/1.73sq.m CBC auto differential Collection Time: 03/19/25 6:49 AM Result Value Ref Range WBC 4.3 4 - 11 10^9/L RBC Count 2.53 (L) 4.1 - 5.7 10^12/L Hemoglobin 7.9 (L) 13 - 17 g/dL Hematocrit 23.8 (L) 39 - 50 % MCV 94 80 - 100 fL MCH 31.3 27 - 34 pg MCHC 33.2 32 - 36 g/dL RDW 19.4 (H) 11.5 - 15 % Platelet Count 118 (L) 150 - 450 10^9/L MPV 8.0 7 - 12 fL Neutrophils % 70.1 % Lymphocytes % 10.2 % Monocytes % 11.4 % Eosinophils % 7.7 % Basophils % 0.6 % Neutrophils Absolute (A) 3.0 1.5 - 6.6 10^9/L Lymphocytes Absolute 0.4 (L) 1.0 - 3.5 10^9/L Monocytes Absolute 0.5 0.0 - 0.9 10^9/L Eosinophils Absolute 0.3 0.0 - 0.4 10^9/L Basophils Absolute 0.0 0.0 - 0.2 10^9/L Differential Type AUTOMATED DIFFERENTIAL Microbiology Results Procedure Component Value Units Date/Time Blood culture #1 [[id number]] Collected: 03/19/25648 Specimen: Blood, Venous Updated: 03/19/25700 Blood culture #2 [[id number]] Collected: 03/19/25648 Specimen: Blood, Venous Updated: 03/19/25700 Blood culture #1 [[id number]] Collected: 03/16/25 1035 Specimen: Blood, Venous Updated: 03/18/25 1101 CULTURE RESULTS NO GROWTH 2 DAYS Narrative: Suboptimal volume of blood collected, Results may be affected. Blood culture #2 [[id number]] Collected: 03/16/25 1035 Specimen: Blood, Venous Updated: 03/18/25 1101 CULTURE RESULTS NO GROWTH 2 DAYS Narrative: Suboptimal volume of blood collected, Results may be affected. Mrsa Pcr nasal swab [[id number]] (Normal) Collected: 03/16/25 0748 Specimen: Swab from Nostril Updated: 03/16/25 0959 MRSA PCR NASAL Negative Resp Pathogens Panel/SARS CoV-2 [[id number]] (Normal) Collected: 03/16/25 0748 Specimen: Swab from Nasopharynx Updated: 03/16/25 0949 SARS COV 2 BY PCR Not Detected ADENOVIRUS Not Detected CORONAVIRUS 229E Not Detected CORONAVIRUS HKU1 Not Detected CORONAVIRUS NL63 Not Detected CORONAVIRUS OC43 Not Detected HUMAN METAPNEUVIRUS Not Detected RHINO/ENTEROVIRUS Not Detected INFLUENZA A Not Detected INFLUENZA B Not Detected PARAINFLUENZA 1 Not Detected PARAINFLUENZA 2 Not Detected PARAINFLUENZA 3 Not Detected PARAINFLUENZA 4 Not Detected RESP SYNCYTIAL VIRUS Not Detected BORD PARAPERTUSSIS Not Detected BORDETELLA PERTUSSIS Not Detected CHLAM.PNEUMONIAE Not Detected MYCOPLASMA PNEUMONIAE Not Detected Narrative: The [employer] Respiratory Panel 2.1 (RP2.1) is a multiplexed nucleic acid test intended for the simultaneous qualitative detection and differentiation of nucleic acid from multiple viral and bacterial respiratory organisms, including nucleic acid from Severe Acute Respiratory Syndrome Coronavirus 2 (SARS-CoV-2), in nasopharyngeal swabs obtained from individuals suspected of COVID-19 by their healthcare provider. Testing is limited to laboratories certified under the Clinical Laboratory Improvement Amendments of 1988 (CLIA), to perform high complexity or moderate complexity tests. SARS-CoV-2 RNA and nucleic acids from the other respiratory viral and bacterial organisms identified by this test are generally detectable in nasopharyngeal swabs during the acute phase of infection.The detection and identification of specific viral and bacterial nucleic acids from individuals exhibiting signs and/or symptoms of respiratory infection is indicative of the presence of the identified microorganism and aids in the diagnosis of respiratory infection if used in conjunction with other clinical and epidemiological information. Positive results are indicative of the presence of the identified organism, but do not rule out co-infection with other pathogens. The agent(s) detected by the BioFire RP2.1 may not be the definite cause of disease and clinical correlation with patient history and other diagnostic information is necessary to determine patient infection status. Negative results in the setting of a respiratory illness may be due to infection with pathogens notdetected by this test, or lower respiratory tract infection that may not be detected by a nasopharyngeal specimen. Negative results do not preclude SARS-CoV-2 infection and should not be used as the sole basis for patient management decisions. Negative HORACIO-CoV-2 results must be combined with clinical observations, patient history and epidemiological information. Negative results for other organisms identified by the test may require additional laboratory testing when evaluating a patient with possible respiratory tract infection. Urine Culture Urine, Indwelling Catheter [[id number]] (Abnormal) (Susceptibility) Collected: 03/15/25 175 Specimen: Urine, Indwelling Catheter Updated: 03/18/25 0820 CULTURE RESULTS 50,000-100,000 CFU/mL Enterococcus species Susceptibility Enterococcus species Method Not Specified Ampicillin >=32.0 Resistant Levofloxacin >=8.0 Resistant Nitrofurantoin 32 Susceptible Vancomycin <=0.5 Susceptible Blood culture [[id number]] Collected: 03/15/25 173 Specimen: Blood, Venous Updated: 03/19/25 0002 CULTURE RESULTS NO GROWTH 3 DAYS Narrative: Suboptimal volume of blood collected, Results may be affected. Blood culture [[id number]] Collected: 03/15/251738 Specimen: Blood, Venous Updated: 03/19/25 0002 CULTURE RESULTS NO GROWTH 3 DAYS Narrative: Suboptimal volume of blood collected, Results may be affected. X-ray chest 1 view Result Date: 03/19/2025 History: Follow-up for infiltrate right lung. Exam/Technique: Portable upright AP chest Comparison:03/16/2025 Findings: Right-sided tunneled dialysis catheter, transvenous pacemaker, and changes fromprevious open heart surgery all unaltered. Infiltrate at the right lung base appears more extensivethan on the previous study.. Cardiomegaly appears unchanged with interval increase in vascular congestion IMPRESSION: Airspace infiltrate at the right lung base appears more extensive than on the previous study suggestive of pneumonia. Pulmonary vascular congestion has also increased. Finalized by Erwin Rivero MD on 03/19/2025 5:03 AM All available laboratory, imaging, and microbiology data has been personally reviewed in detail, and accessible in full per EMR. Medications: apixaban, 5 mg, oral, BID ARIPiprazole, 10 mg, oral, Daily aspirin, 81 mg, nasogastric, Daily atorvastatin, 40 mg, nasogastric, Daily budesonide, 0.5 mg, nebulization, Q12H busPIRone, 15 mg, nasogastric, TID cholecalciferol (vitamin D3), 1,000 Units, nasogastric, Daily cyanocobalamin, 1,000 mcg, nasogastric, Daily darbepoetin sylwia (ARANESP) injection, 60 mcg, subcutaneous, Weekly DULoxetine, 20 mg, oral, Daily ferrous sulfate, 325 mg, nasogastric, Daily with breakfast gabapentin, 100 mg, oral, TID ipratropium-albuteroL, 3 mL, nebulization, Q6H meropenem, 500 mg, intravenous, Q24H midodrine, 10 mg, oral, TID pantoprazole, 40 mg, oral, QAM AC risperiDONE, 3 mg, oral, Nightly rivastigmine, 1 patch, transdermal, Daily sodium chloride, 10 mL, intravenous, Q96H sodium chloride, 10 mL, intravenous, Q96H sodium chloride, 30 mL, intravenous, Q8H AND sodium chloride, 10 mL, intravenous, PRN AND sodium chloride, 20 mL, intravenous, PRN [START ON 03/20/2025] sodium citrate, 1.6 mL, intravenous, Q96H [START ON 03/20/2025] sodium citrate, 1.6 mL, intravenous, Q96H topiramate, 200 mg, nasogastric, BID Infusion: norepinephrine, 0.01-0.2 mcg/kg/min, Last Rate: Stopped (03/18/25 0949) PRN medications: acetaminophen calcium gluconate OR calcium gluconate OR [DISCONTINUED] calcium gluconate ipratropium-albuteroL magnesium sulfate OR [DISCONTINUED] magnesium sulfate sodium chloride AND sodium chloride AND sodium chloride sodium chloride sodium chloride sodium chloride sodium chloride sodium citrate sodium citrate sodium phosphate IV OR sodium phosphate IV - central line OR [DISCONTINUED] sod phos di, mono-K phos mono ASSESSMENT and plan: Active Hospital Problems Diagnosis Date Noted Sepsis with encephalopathy and septic shock, due to unspecified organism ([facility] 03/16/2025 Resolved Problems No resolved problems to display. - Acute metabolic encephalopathy in the setting of sepsis- improved - Hospital delirium: - Was seen by Stroke Service due to left-sided deficit, facial droop and slurred speech - CT brain was negative for acute pathology - S/p Precedex ICU. - Delirium precautions. - Due to +ve urine cultures for Ampicillin resistant Enterococcus, I will start the patient on IV Daptomycin to see if it helps with his encephalopathy. Can't use IV Vancomycin because he has a midline and is ESRD (not a good candidate for PICC line) and doesn't want additional procedures at this point. Will consult ID. - Sepsis: - Acute on chronic hypoxic respiratory failure- now on RA (baseline is 2 L O2 nasal cannula) - Right lower lobe pneumonia: - Enterococcus UTI - CXR 03/19/25 shows worsening RLL infiltrate. Respiratory pathogen panel is negative. Negative urine Streptococcus and Legionella antigens. -ve MRSA swab. -Urinalysis on admission is negative for pyuria. Urine cultures positive from 03/15/2025 and showedresistance to ampicillin and levofloxacin. - He has no respiratory symptoms. He received 3 days of Meropenem. I recommended CT chest but he declined and would prefer to wait. - Start Daptomycin for UTI and ask for ID consultation. Hypotension/shock -resolved S/p pressors. Likely medication induced (morphine) with normal lactic acid levels Not septic shock per intensive care Oropharyngeal dysphagia On level 4 pureed Diet and No liquids Will need to repeat VFSS in 3 days. The patient refused PEG tube. I am not sure about his decision making capacity since he is recovering from his acute encephalopathy and refused to cooperate with certain parts of my cognitive assessment. COPD not in exacerbation DuoNeb q.6 hours. ESRD on HD MWF at [facility]: Outpatient follow up with Dr. Matt Sharma. - Chronic HFrEF (EF improved to 35%): - Paroxysmal atrial fibrillation s/p MAZE - CAD s/p CABG and RPL stent (patent grafts and stent on cath 03/2024) - SSS s/p PPM - Continue to hold Coreg, Lasix, Imdur, Entresto and Aldactone due to low blood pressure - Eliquis 5 mg p.o. b.i.d. and ASA 81 mg po daily. Will need outpatient evaluation to upgrade PPM to AICD. Diabetes mellitus type 2 Insulin sliding scale. BPH Resume Flomax 0.4 mg p.o. daily DVT prophylaxis: Already on Eliquis. Code Status: Full code. Disposition: To be determined later. Current care plan discussed in detail with the patient. He verbalized understanding. Further management will follow based on the clinical course of the patient and results of ongoing evaluation Electronically signed by: LANDY NESS MD 03/19/2025 Preferred contact method: #1. Epic chat #2. [facility] team pager Available from 7 am to 7 pm For after hours, please page [facility] night team. Disclaimer Note: To increase efficiency, your provider may have prepared this document using voice recognition technology. In that case, if a word or phrase is confusing, or does not make sense, thisis likely due to a recognition error within the program which was not discovered during the provider???s review. If you believe an error has occurred, please notify your provider???s office at your earliest convenience, so we can correct any mistakes. * Deana Zev, [facility] - 03/18/2025 2:28 PM EST Respiratory Therapy Clinical Practice Guidelines Consult Vital Signs BP: 118/65 Pulse: 78 Resp: 19 SpO2: 96 % O2 Device: Nasal cannula O2 Flow Rate (L/min): 2 L/min Respiratory Assessment Assessment Type: Pre-treatment Level of Consciousness: Alert, Responds to Voice Respiratory Pattern: Regular Chest Assessment: Chest expansion symmetrical Bilateral Breath Sounds: Clear, Diminished Patient Active Problem List Diagnosis Has a tremor Atrial fibrillation, chronic ([facility]) Type 2 diabetes mellitus with hyperglycemia ([facility]) Chronic obstructive pulmonary disease ([facility]) Acute systolic (congestive) heart failure ([facility]) End stage renal disease ([facility]) Sepsis with encephalopathy and septic shock, due to unspecified organism ([facility]) Last Chest XRAY: Reviewed Pulmonary History: COPD RT Reassessment Due In: 12 hours Bronchodilator Respiratory Rate Level 1: Less than 20 Dyspnea Level 1: No SOB Breath Sounds Level 2: Diminished and/or faint wheezes Respiratory History Level 5: Diagnosis of pulmonary disease such as: Asthma/reactive airway disease; Bronchitis/Emphysema (COPD) ; Cystic Fibrosis ; Severe Laryngitis/Tracheitis/Bronchiectasis ; Microbial infection ; Anesthesia related bronchospasms ; Severe exacerbation Oxygen to Keep SpO2 Greater Than Or Equal To 92% Home Therapy: Patient Baseline Peak Flow ([facility] Only) Home Therapy: Not Applicable Patients Current Level & Intervention: 2 Three times daily and Q4 PRN for wheezing * Maritza Sharma MD - 03/18/2025 9:37 AM EST Images from the original note were not included. [facility] Matt Goncalves, [facility] Nephrology Progress Note Patient Name: Timmy Muñoz : 1955 Date of Service: 03/18/25 PCP: GATO CHA MD Attending Physician: Celina Mckeon DO Admission Date: 03/16/2025 Length of stay: LOS: 2 days Chief complaint. Chief Complaint Patient presents with Altered Mental Status Reason for Consult: Assessment and Plan. 70-year-old male with a past medical history significant for end-stage renal disease (ESRD) on hemodialysis (Friday, , Friday schedule) since 12/23/2024 at [facility] under the care of Dr. Matt Sharma, chronic systolic heart failure with reduced ejection fraction (HFrEF) of 35%, paroxysmal atrial fibrillation on Eliquis, type 2 diabetes mellitus, and COPD on 2 liters of oxygen at baseline presented to the emergency department with altered mental status on 03/16/2025. The patient was initially at [facility] where a stroke alert was called for left-sided deficit, facial droop, and slurring of speech. CT of the brain was negative for acute pathology. A chest x-ray revealed a right lower lobe infiltrate, and the altered mental status was attributed to an infectious etiology. The patient was started on vancomycin and cefepime. While being transferred to [facility], he developed hypotension, unresponsiveness, and fever, prompting his return to the [facility]. There, a right femoral central line was placed, and he was started on vasopressor support with Levophed. He was subsequently transferred to the ICU at this facility for septic shock. Upon arrival in the ICU, he was noted to be alert but confused and not following commands, requiring Levophed. Nephrology consultation was requested for management of ESRD and planning for hemodialysis in thesetting of critical illness. Assessment End stage renal disease (ESRD) on maintenance hemodialysis, Friday, , Friday schedule [facility] under the care of Dr. Matt Sharma. Electrolyte Abnormalities: Stable. Acid-Base status: No significant acidosis or alkalosis. Volume Status: Appears euvolemic. Blood pressure remains on the low side. Net I/O over last 24 hours is -53.84 ml. Hypertension: Home antihypertensives are held due to hypotension. Hemodynamics: History of reduced LVEF EF 35% per last echo on 01/2025. Currently requires vasopressor support for hypotension. Anemia of CKD: Most recent hemoglobin is 7.2 g/dL. CKD-MBD / Renal Osteodystrophy: To be managed as per outpatient protocol. Sepsis secondary to right-sided pneumonia. Septic shock requiring vasopressor support. Acute on chronic hypoxic respiratory failure. COPD on 2L NC at baseline. Acute Metabolic encephalopathy, improving. Heart failure with reduced ejection fraction (HFrEF). Paroxysmal atrial fibrillation on Eliquis. Type 2 diabetes mellitus. Plan Patient will be dialyzed today. He is making some urine. Continue midodrine for blood pressure support. Can use loop diuretics for volume management if needed, so far no need at this point, blood pressure remains on the low side. Home medications including amiodarone, carvedilol, Lasix, Imdur, Entresto, spironolactone, and Flomax will be held for now. Can reintroduce once blood pressure is stable. KG per protocol. Pneumonia and respiratory failure management per primary service. Watch for volume and fluid overload given history of decreased ejection fraction of 35%. Consider cardiology evaluation for goal-directed medical therapy and medication adjustment. Recommend neurology evaluation given multiple sedative and psychotropic medications including Abilify, buspirone, Cymbalta, Neurontin, risperidone, rivastigmine, and Topamax. Dose all medication to GFR <10 ml/min. Strict ins and outs, renal chemistry, and monitoring in AM. Thank you for this consultation, we will follow along with you regarding care of this patient whilethe patient is here in the hospital, please call if you have any questions or concerns. MARITZA SHARMA MD on 03/18/2025 at 9:37 AM [facility] 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 Schedule : See [facility] on-call schedule for [facility] ( [facility] ) Nephrology Epic chat : Available on Blink for iPhone and Android chat during working hours only, if no response please use answering service Perfect serve answering service: [phone], if no response please use utilization reviewer Physician Cell phone Cell Phone for utilization reviewer Physician : Use as back up, available on [employer] for iPhone and Android on-call schedule Subjective : Patient seen at bedside, No acute distress Objective VITALS BP 97/61 Pulse 90 Temp 36.7 ??C (98.1 ??F) (Axillary) Resp 17 Wt 84.1 kg (185 lb 6.5 oz) SpO2 94% BMI 29.04 kg/m?? BMI: Body mass index is 29.04 kg/m??. Weight change: 0.5 kg (1 lb 1.6 oz) Wt Readings from Last 3 Encounters: 03/18/25 84.1 kg (185 lb 6.5 oz) 03/16/25 83 kg (183 lb) 02/28/25 83.4 kg (183 lb 13.8 oz) I/O (24 Hours) Intake/Output Summary (Last 24 hours) at 03/18/2025 0937 Last data filed at 03/18/2025 0700 Gross per 24 hour Intake 306.16 ml Output 360 ml Net -53.84 ml General: Awake, alert, and oriented to person, place, and time. Not in acute distress. HEENT: No conjunctival pallor, anicteric sclera. Atraumatic, normocephalic. Moist oral mucosa. Neck: No lymphadenopathy, no JVD. Neck is supple. Cardiovascular: Regular rate and rhythm. S1 and S2 heard. No murmur, rub, or gallop. Dialysis port present in right upper chest. Respiratory: Bilateral air entry clear to auscultation. No wheezes, rhonchi or crackles. No respiratory distress. Abdomen: Soft, non-tender to palpation. Bowel sounds are normal. Extremities: No cyanosis, clubbing, or edema. Neurological: Oriented to person, place, and time. Speech is clear. Face is symmetrical. No tremor noted on exam. Skin: No rashes or lesions. Skin is pink, warm, and dry. Psychiatric: Appropriate affect, no acute distress. Medications Scheduled Meds: apixaban, 5 mg, oral, BID ARIPiprazole, 10 mg, oral, Daily aspirin, 81 mg, nasogastric, Daily atorvastatin, 40 mg, nasogastric, Daily budesonide, 0.5 mg, nebulization, Q12H busPIRone, 15 mg, nasogastric, TID cholecalciferol (vitamin D3), 1,000 Units, nasogastric, Daily cyanocobalamin, 1,000 mcg, nasogastric, Daily darbepoetin sylwia (ARANESP) injection, 60 mcg, subcutaneous, Weekly DULoxetine, 20 mg, oral, Daily ferrous sulfate, 325 mg, nasogastric, Daily with breakfast gabapentin, 100 mg, oral, TID ipratropium-albuteroL, 3 mL, nebulization, Q6H [COMPLETED] meropenem, 500 mg, intravenous, Once FOLLOWED BY meropenem, 500 mg, intravenous, Q24H midodrine, 10 mg, oral, TID pantoprazole, 40 mg, oral, QAM AC risperiDONE, 3 mg, oral, Nightly rivastigmine, 1 patch, transdermal, Daily sodium chloride, 10 mL, intravenous, Q96H sodium chloride, 10 mL, intravenous, Q96H sodium chloride, 30 mL, intravenous, Q8H AND sodium chloride, 10 mL, intravenous, PRN AND sodium chloride, 20 mL, intravenous, PRN [START ON 03/20/2025] sodium citrate, 1.6 mL, intravenous, Q96H [START ON 03/20/2025] sodium citrate, 1.6 mL, intravenous, Q96H topiramate, 200 mg, nasogastric, BID Continuous Infusions: dexmedeTOMIDine, 0.1-0.7 mcg/kg/hr, Last Rate: Stopped (12/04/25 1041) norepinephrine, 0.01-0.2 mcg/kg/min, Last Rate: 0.04 mcg/kg/min (03/18/25 0700) PRN Meds: acetaminophen calcium gluconate OR calcium gluconate OR [DISCONTINUED] calcium gluconate ipratropium-albuteroL magnesium sulfate OR [DISCONTINUED] magnesium sulfate sodium chloride AND sodium chloride AND sodium chloride sodium chloride sodium chloride sodium chloride sodium chloride sodium citrate sodium citrate sodium phosphate IV OR sodium phosphate IV - central line OR [DISCONTINUED] sod phos di, mono-K phos mono Results Review: Renal Chemistry Results from last 7 days Lab Units 03/18/25 0203 03/17/25 0627 03/17/25 0223 03/16/25 1132 03/16/25 0135 03/15/25 1739 SODIUM mmol/L 135 -- 139 139 -- 136 POTASSIUM mmol/L 3.9 4.3 3.5 4.1 -- 4.0 CHLORIDE mmol/L 101 -- 105 104 -- 100 CO2 mmol/L 23 -- 24 24 -- 24 BUN mg/dL 52* -- 34* 59* -- 51* CREATININE mg/dL 3.33* -- 2.28* 3.86* -- 3.13* CALCIUM mg/dL 8.8 -- 8.3* 9.1 -- 9.2 MAGNESIUM mg/dL -- -- 1.7* -- 1.9 1.8 Hepatic: Lab Results Component Value Date AST 12 03/18/2025 AST 10 03/17/2025 AST 10 03/16/2025 ALT 8 03/18/2025 ALT 6 03/17/2025 ALT 6 03/16/2025 ALKPHOS 115 03/18/2025 ALKPHOS 100 03/17/2025 ALKPHOS 122 03/16/2025 BNP Lab Results Component Value Date BNP 951 (H) 03/16/2025 Albumin: Lab Results Component Value Date ALBUMIN 3.0 (L) 03/18/2025 CBC Results from last 7 days Lab Units 03/18/25 0503 03/18/25 0203 03/17/25 0740 03/17/25 0223 03/16/25 1132 03/15/25 1739 WBC 10^9/L -- 4.6 -- 5.0 8.1 9.4 HEMOGLOBIN g/dL 7.4* 7.2* 8.0* 7.0* 8.1* 9.4* HEMATOCRIT % -- 21.6* 24.0* 20.5* 23.9* 27.3* PLATELETS 10^9/L -- 109* -- 77* 84* 96* Results from last 7 days Lab Units 03/18/25 0203 03/17/25 0223 03/16/25 1917 03/16/25 1132 BEDSIDE GLUCOSE mg/dL -- 180* 118* -- GLUCOSE mg/dL 166* 122* -- 138* Urine Studies: Lab Results Component Value Date COLOR Yellow 03/15/2025 TURBIDITY Clear 03/15/2025 SPECIFICGRA 1.015 03/15/2025 SPECIFICGRA 1.020 07/12/2012 NITRITE Negative 03/15/2025 PHURINE 7.0 03/15/2025 LEUKOCYTE Negative 03/15/2025 LEUKOCYTE Negative 07/12/2012 PROTEIN 100 mg/dL (A) 03/15/2025 KETONES Negative 03/15/2025 UROBILINOGEN 1.0 eu/dL 03/15/2025 UROBILINOGEN 0.2 07/12/2012 BLOODHGB Moderate (A) 03/15/2025 No results found for: URINECREATI , PROTUR , MICROALBUR , MICRAU No results found for: UPROCRTRAT , ALBCREATRA Urine Sodium: No components found for: TRAVIS Urine Potassium: No results found for: KUR Urine Chloride: No results found for: CLUR Urine Osmolarity: No components found for: OSMOU Urine Creatinine: No results found for: LABCREA Urine Eosinophils: No components found for: UEOS Urine Protein: No components found for: TPU Immunology Profile Lab Results Component Value Date CRP 1.6 (H) 02/25/2025 No results found for: HAV , HEPAIGM , HEPBIGM , HEPBCAB , HBEAG , HEPCAB SARITA: No results found for: SARITA C3:No results found for: C3 C4:No results found for: C4 MPO ANCA: No results found for: MPO PR3 ANCA: No components found for: PR3 hepatitis serologies ANTIGBM:No components found for: GBMABIGG HEPATITIS B SURFACE AG: Lab Results Component Value Date HEPBSAG Non-Reactive 02/25/2025 HEPATITIS C AB: No results found for: HEPCAB Electrophoresis: SPEP:No results found for: PROT , LABALPH , LABBETA , PATH UPEP:No results found for: LABPE Anemia Profile Lab Results Component Value Date WBC 4.6 03/18/2025 WBC 5.0 03/17/2025 HGB 7.4 (L) 03/18/2025 HGB 7.2 (L) 03/18/2025 HCT 21.6 (L) 03/18/2025 HCT 24.0 (L) 03/17/2025 PLT 109 (L) 03/18/2025 PLT 77 (L) 03/17/2025 Lab Results Component Value Date IRONSAT 30 02/25/2025 FERRITIN 551 (H) 02/25/2025 [id number] 226 02/25/2025 FOLATE >25.0 02/25/2025 Bone Mineral Profile No results found for: PTH Echocardiogram: Echo complete W/3D Recon Independ wkstn Result Date: 02/01/2025 1 1 [facility] Heart Station [address] [id number] [phone] (fax) Echocardiogram-[facility] Name: TIMMY MUÑOZ Study Date: 02/01/2025 04:09 PM B/P: 144 mmHg/65 mmHg HR: 72 bpm Date of : 1955 Location: [facility] Height: 67 in. Age: 69 year(s) Patient Room: 3135 Weight: 210 lb. Gender: Male Patient Status: InPt BSA: 2.06 m2 Indication: Arrhythmia, Ischemic cardiomyopathy, CHF with low EF, Atrial Fibrillation, H/O NSTEMI, H/O ETOH abuse Examination: Echocardiogram (Complete), Lumason Contrast Image Quality: Fair Patient Consent: Procedure explained to patient Exam Details Contrast: I.V. dose of LumasonConclusions Left Ventricle: The left ventricle is normal size. Global left ventricular systolic function is moderately reduced. The EF is 35 % visually. Left ventricular wall thickness is mildly increased. Regional wall motion abnormalities (see diagram). Grade 3, severe diastolic dysfunction (reversible restrictive LV filling pattern). Right Ventricle: The right ventricle is mildly enlarged. Right ventricular systolic function appears reduced. Doppler studies suggest severely elevated right sided pressures. Left Atrium: The left atrium is moderately enlarged. Right Atrium: The right atrium is moderately enlarged. Mitral Valve: Mild to moderate mitral regurgitation. Aortic Valve: Trivial aortic valve regurgitation. Tricuspid Valve: Moderate tricuspid regurgitation. Aorta: The aortic root exhibits mild dilatation. Overall Conclusions: Due to suboptimal imaging Lumason contrast was administered for opacification and better delineation of endocardial borders. Measurements Left Ventricle Label Value Normal Value LVOTd 2.2 cm (19cm - 21cm) LVOT VTI 19.3 cm (18cm - 22cm) LVOT PGmax 4 mmHgLVEF visual 35 % LVDd, 2D 5.41 cm (4.2cm - 5.9cm) LVDs, 2D 4.04 cm (2.1cm - 4cm) IVSd, 2D 1.44 cm (0.6cm - 1.1cm) LVPWd, 2D 1.24 cm (0.6cm - 1cm) LV Mass, 2D ASE 309.38 g LV Mass Index, 2D ASE 150.2 g/m?? (50g/m?? - 102.4g/m??) RWT, MM 0.46 (0 - 0.42) LVSVI, 2D 34 ml/m2 LVOT PGmean 2 mmHg [id number] ml Right Ventricle Label Value Normal Value RVDd, 2D 4.42 cm (1.9cm - 3.8cm) TAPSE 1.5 cm Left Atrium Label Value Normal Value LA Volume, BP 96 ml (18ml - 58ml) LADs, 2D 4.5 cm (3cm - 4cm) LAESV index, BP 46.6 ml/m?? Right Atrium Label Value Normal Value RA Area 28 cm?? Aortic Valve Label Value Normal Value AV DVI 0.58 AV VTI 35.1 cm Mitral Valve Label Value Normal Value MV E Vmax 1.19 m/s MV A Vmax 0.51 m/s MV E/A 2.33 MV E/E' lateral 14.4 MV E' lateral 0.08 m/s Tricuspid Valve Label Value Normal Value RA Pressure 8 mmHg RVSP 69 mmHg TR Vmax 3.89 m/s Aorta Label Value Normal Value AoRoot,2D 3.9 cm (1.4cm - 3.8cm) Great Vessels Label Value Normal Value IVC 2.6 cm (1.2cm - 2.3cm) Valvular Assessment LVOT 0.7 - 1.1 m/sec Aortic Valve 1.0 - 1.7 m/sec Mitral Valve 0.6 - 1.3 m/sec Tricuspid Valve 0.3 - 0.7 m/sec Pulmonic Valve 0.6 - 0.9 m/sec Regurgitation Trivial MildMod Moderate Trivial Stenosis No No No No Max Velocity 1.05 m/sec 1.82 m/s 1.19 m/sec Max Gradient 13.00 mmHg Mean Gradient 7.00 mmHg Valve Area 2.2 cm?? Findings Left Ventricle: The left ventricle is normal size. Global left ventricular systolic function is moderately reduced. The EF is 35 % visually. Left ventricular wall thickness is mildly increased. Regional wall motion abnormalities (see diagram). The basal anterior, basal anteroseptal, basal inferoseptal, basal inferior, mid anterior, mid anteroseptal, mid i nferoseptal, mid inferior, apical anterior, apical septal, apical inferior and apex left ventricular wall segments are hypokinetic. All remaining scored left ventricular wall segments are with no wall motion abnormalities. Grade 3, severe diastolic dysfunction (reversible restrictive LV filling pattern). No thrombus is identified in the left ventricle. Right Ventricle: The right ventricle is mildly enlarged. Right ventricular systolic function appears reduced. A pacemaker wire is seen in the right atrium and right ventricle. Doppler studies suggest severely elevated right sided pressures. Left Atrium: The left atrium is moderately enlarged. Right Atrium: The right atrium is moderately enlarged. Mitral Valve: There is nonspecific thickening of the mitral valve leaflet. Mild to moderate mitral regurgitation. No mitral valve stenosis. Aortic Valve: Aortic valve is tri-leaflet. Trivial aortic valve regurgitation. No aortic valve stenosis. Aortic leaflets exhibit mild calcification. Tricuspid Valve: Tricuspid valve appears normal. Moderate tricuspid regurgitation. No tricuspid valve stenosis. Pulmonic Valve: Pulmonary valve appears normal. Trivial pulmonary regurgitation. No pulmonic valve stenosis. Aorta: The aortic root exhibits mild dilatation. Great Vessels: IVC: The IVC is dilated. Respiratory inspiration greater than 50%. Pericardium: No pericardial effusion. Procedure Staff Reading Group: [facility] Referring Physician: JOE LONG Grease [facility] Ordering Physician: RODOLFO MOORE Wall Motion Scores -1 - hyperkinesia, 0 - not evaluated, 1 - normal, 2 - hypokinesia, 3 - akinesia, 4 - dyskinesia Echo congenital limited W/O contrast Result Date: 12/22/2024 Left Ventricle: Severely reduced left ventricular systolic function with a visually estimated EF of15 - 20%. EF by visual approximation is 20%. Left ventricle size is normal. Moderately increased wall thickness. See diagram for wall motion findings. Normal diastolic function. Right Ventricle: Right ventricle size is normal. Lead present in the right ventricle. Normal systolic function. Aortic Valve: Mildly calcified cusps. Mitral Valve: Mildly thickened leaflets. Moderate regurgitation. Tricuspid Valve: Moderate to severe regurgitation. Severely elevated RVSP, consistent with severe pulmonary hypertension. RVSP is 75 mmHg. Image quality is adequate. Contrast used: Lumason. Left Ventricle Severely reduced left ventricular systolic function with a visually estimated EF of 15 - 20%. EF by visual approximation is 20%. Left ventricle size is normal. Moderately increased wall thickness. See diagram for wall motion findings. Normal diastolic function. Right Ventricle Right ventricle size isnormal. Lead present in the right ventricle. Normal systolic function. Left Atrium Left atrium sizeis normal. Right Atrium Lead present in the right atrium. Right atrium size is normal. IVC/SVC IVC diameter is dilated and decreases less than 50% during inspiration; therefore the estimated right atrial pressure is elevated (~15 mmHg). IVC size is normal. Mitral Valve Mildly thickened leaflets. Moderate regurgitation. No stenosis noted. Tricuspid Valve Valve structure is normal. Moderate to severe regurgitation. No stenosis noted. Severely elevated RVSP, consistent with severe pulmonary hypertension. RVSP is 75 mmHg. Aortic Valve Mildly calcified cusps. No regurgitation. No stenosis. Pulmonic Valve The pulmonic valve visualization is suboptimal but appears to be functioning normally. Physiologically normal regurgitation. No stenosis noted. Ascending Aorta Normal sized aortic root and ascending aorta. Pericardium No pericardial effusion. Septum No interatrial shunt visualized with colorDoppler. Study Details Image quality: adequate. Heart rate was 66 bpm. The underlying ECG rhythm was sinus rhythm. Cardiac history: PPM/AICD. Color flow Doppler was performed and pulse wave and/or continuous wave Doppler was performed. Lumason contrast was given to enhance imaging. Wall Scoring Baseline Score Index: 1.76 The following segments are akinetic: basal inferoseptal, basal inferior, mid inferoseptal and apical septal. The following segments are hypokinetic: basal anteroseptal, mid anteroseptal, mid inferior, apical inferior and apex. All other segments are normal. Echo complete W/3D Recon Independ wkstn Result Date: 07/08/2024 1 1 [facility] Heart Station [address] [place] [address] [phone] (fax) Echocardiogram-[facility] Name: TIMMY MUÑOZ Study Date: 07/08/2024 12:08 PM B/P: 132 mmHg/68 mmHg HR: Date of : 1955 Location: [facility] Height: 67 in. Age: 69 year(s) Patient Room: 3135 Weight: 230 lb. Gender: Male Patient Status: InPt BSA: 2.15 m2 Indication: CHF with low ejection fraction Examination: Echocardiogram (Complete), Lumason Contrast Image Quality: Fair Patient Consent: Procedure explained to patient Conclusions Left Ventricle: The left ventricle is normal size. Global left ventricular systolic function is severely reduced. The EF is 10 % visually. Left ventricular wall thickness is normal. Diffuse global hypokinesis.Right Ventricle: The right ventricle is enlarged. Right ventricular systolic function appears reduced. Doppler studies suggest moderately elevated right sided pressures (elevated pulmonary pressure).Left Atrium: The left atrium is moderately enlarged. Right Atrium: The right atrium is moderately enlarged. Mitral Valve: Mild mitral regurgitation. Tricuspid Valve: Moderate tricuspid regurgitation.Great Vessels: IVC: The IVC is dilated. There is no inspiratory collapse of the IVC. Overall Conclusions: Due to suboptimal imaging Lumason contrast was administered for opacification and better delineation of endocardial borders. Measurements Left Ventricle Label Value Normal Value LVOT VTI 10.5 cm (18cm - 22cm) LVOT PGmax 1 mmHg LVEF visual 10 % LVDd, 2D 5.28 cm (4.2cm - 5.9cm) LVDs, 2D 4.62 cm(2.1cm - 4cm) IVSd, 2D 1.33 cm (0.6cm - 1.1cm) LVPWd, 2D 1.07 cm (0.6cm - 1cm) LV Mass, 2D ASE 255.01 g LV Mass Index, 2D ASE 118.6 g/m?? (50g/m?? - 102.4g/m??) RWT, MM 0.41 (0 - 0.42) LVSVI, 2D 16.7ml/m2 LVOT PGmean 1 mmHg Right Ventricle Label Value Normal Value RVDd, 2D 4.59 cm (1.9cm - 3.8cm) TAPSE 0.78 cm Left Atrium Label Value Normal Value LA Volume, BP 87 ml (18ml - 58ml) LAESV index, BP40.5 ml/m?? Right Atrium Label Value Normal Value RA Area 24.2 cm?? Aortic Valve Label Value NormalValue AV DVI 0.44 AV VTI 21.7 cm Mitral Valve Label Value Normal Value MV E' lateral 0.08 m/s Tricuspid Valve Label Value Normal Value RA Pressure 15 mmHg RVSP 47 mmHg TR Vmax 2.82 m/s Aorta Label Value Normal Value AoRoot, 2D 3.8 cm (1.4cm - 3.8cm) Valvular Assessment LVOT 0.7 - 1.1 m/sec Aortic Valve 1.0 - 1.7 m/sec Mitral Valve 0.6 - 1.3 m/sec Tricuspid Valve 0.3 - 0.7 m/sec Pulmonic Valve 0.6- 0.9 m/sec Regurgitation No Mild Moderate Trivial Max Velocity 0.57 m/sec 1.30 m/s 0.84 m/s Max Gradient 7.00 mmHg 3.00 mmHg Mean Gradient 3.00 mmHg Findings Left Ventricle: The left ventricle is normal size. Global left ventricular systolic function is severely reduced. The EF is 10 % visually. Left ventricular wall thickness is normal. Diffuse global hypokinesis. Right Ventricle: The right ventricle is enlarged. Right ventricular systolic function appears reduced. Doppler studies suggest moderately elevated right sided pressures (elevated pulmonary pressure). Left Atrium: The left atrium is moderately enlarged. Right Atrium: The right atrium is moderately enlarged. Mitral Valve: There isnonspecific thickening of the mitral valve leaflet. Mild mitral regurgitation. Aortic Valve: Focal aortic cusp thickening is noted. No aortic valve regurgitation. Tricuspid Valve: Normal tricuspid valve. Moderate tricuspid regurgitation. Pulmonic Valve: Normal pulmonary valve. Trivial pulmonary regurgitation. Aorta: The aortic root exhibits normal size. Great Vessels: IVC: The IVC is dilated. There is no inspiratory collapse of the IVC. Pericardium: No pericardial effusion. Procedure Staff Reading Group: [facility] Grease Man: Morena Green RDCS Ordering Physician: PIERRE AKINS Echo congenital limited W/O contrast Result Date: 01/26/2024 Left Ventricle: Moderately reduced left ventricular systolic function with a visually estimated EF of 35 - 40%. EF by 2D Simpsons Biplane is 36%. Left ventricle size is normal. Mild posterior thickening. Moderate septal thickening. Moderate hypokinesis of the following segments: basal inferior, midinferior and mid inferoseptal. Diastolic function indeterminate in the setting of atrial fibrillation. Right Ventricle: Right ventricle is mildly dilated. Lead present in the right ventricle. Mitral Valve: Moderate regurgitation with a centrally directed jet. Tricuspid Valve: Mild to moderate regurgitation with a centrally directed jet. The estimated RVSP is 87 mmHg. Severely elevated RVSP, consistent with severe pulmonary hypertension. Aorta: Normal sized ascending aorta. Mildly dilated aorticroot. Ao root diameter is 4.1 cm. No previous studies were available for comparison. Left VentricleModerately reduced left ventricular systolic function with a visually estimated EF of 35 - 40%. EF by 2D Simpsons Biplane is 36%. Left ventricle size is normal. Mild posterior thickening. Moderate septal thickening.Moderate hypokinesis of the following segments: basal inferior, mid inferior and midinferoseptal. Diastolic function indeterminate in the setting of atrial fibrillation. Right Ventricle Right ventricle is mildly dilated. Lead present in the right ventricle. Normal systolic function.Left Atrium Left atrium size is normal. Right Atrium Lead present in the right atrium. Right atriumsize is normal. IVC/SVC IVC diameter is less than or equal to 21 mm and decreases greater than 50% during inspiration; therefore the estimated right atrial pressure is normal (~3 mmHg). IVC size is normal. Mitral Valve Valve structure is normal. Moderate regurgitation with a centrally directed jet.No stenosis noted. Tricuspid Valve Valve structure is normal. Mild to moderate regurgitation with acentrally directed jet. The estimated RVSP is 87 mmHg. No stenosis noted. Severely elevated RVSP, consistent with severe pulmonary hypertension. Aortic Valve Valve structure is normal. Trace regurgita tion. No stenosis. Pulmonic Valve The pulmonic valve visualization is suboptimal but appears to be functioning normally. Mild regurgitation. No stenosis noted. Ascending Aorta Normal sized ascending aorta. Mildly dilated aortic root. Ao root diameter is 4.1 cm. Pericardium No pericardial effusion. Pulmonary Artery Main pulmonary artery is mildly dilated. Study Details Image quality: adequate. No contrast was given. Echo limited W/O contrast Result Date: 04/08/2023 APPROVED REPORT Conclusion Mild left ventricular enlargement Mild concentric LVH Mild to moderate global LV systolic dysfunction with no obvious segmental wall motion abnormalities-ejection fraction 40% Grossly normal right-sided chamber dimensions Trileaflet aortic valve with mild calcification but no stenosis Grossly normal mitral valve No pericardial effusion Left Ventricle Left ventricle is mildly dilated. Mild to moderate overall LV systolic dysfunction with no major discrete wall motion abnormalities Borderline concentric left ventricular hypertrophy. General global hypokinesis The diastolic function was not assessed. LVEF is 40%. Right Ventricle The right ventricle is normal size. Right ventricular systolic function could not be assessed. Atria Left atrium is borderline dilated. The right atrium size is normal. The right atrium size is normal. Aortic Valve Trileaflet valve with mild fibrocalcific changes and normal opening in systole The aortic valve is normal in structure. There is no aortic valvular stenosis. Tricuspid Valve The tricuspid valve is normal in structure. Pulmonic Valve Pulmonic valve is not well visualized. Great Vessels The aortic root is normal in size. The IVC was not visualized. Pericardium There is no pericardial effusion. EXAM: Limited 2D Echocardiogram Imaging system used: Bee Resilient 2D Dimensions LVDd 5.5 cm M: 4.2 - 5.8 LVEF (Roberts's) 47.11 % M: 52 - 72 LVDs 4.58 cm M: 2.5 - 4.0 EF AP4-a2DQ 41.12 % EF AP2-a2DQ 50.69 % EF BP-a2DQ 47.11 % LVESV 89 mL LVEDV 167.48 mL M: 62 - 150 LV Volume Index 72.50 mL/m2 M: 34 - 74 Thank you for the consultation. Please do not hesitate to contact us for any further questions/concerns. We will continue to follow along with you. * Ole Best MD - 03/18/2025 8:17 AM EST Images from the original note were not included. Adult ICU Progress Note Patient - Timmy Muñoz Age - 70 y.[facility]. [facility] 1955 [id number] Date of Admission - 03/16/2025 5:16 AM SUBJECTIVE 03/18: Patient has been seen and examined today, he reports feeling better, denies chest pain, shortness of breath, or abdominal pain. BP 110/61 RR 15 HR 81 V pacing SpO2 100% on 2 L nasal cannula Patient is on hemodialysis. Reassess after hemodialysis for vasopressor requirement and resume midodrine, if the patient hemodynamically stable plan step down to inpatient floor. HPI and Interval History Timmy Muñoz is a 70 y.o. male with a past medical history of COPD on 2 L oxygen at baseline, history of CAD status post stent, history of CABG, ischemic cardiomyopathy, HFrEF (last echo showed EFof 35%), paroxysmal Afib on Eliquis, hypertension, ESRD on hemodialysis (T/T/S), type 2 diabetes mellitus he has been admitted to ICU for septic shock. [facility] ED course: Patient initially presented yesterday at [facility] via EMS with history of altered mental status. Patient was found to have left-sided deficit, facial droop and slurring of speech. Stroke alert was called at [facility]. Of note, patient was recently discharged on 03/01/2025 where he was admitted for ESBL E coli UTI and new onset tremors. Patient was treated with IV Invanz. Pertinent labs: WBC 9.4, hemoglobin 9.4, creatinine 3.13, lactate 1.3, urinalysis negative for leukocyte and nitrate, troponin 29 Imaging: CT brain was negative for acute pathology. Chest x-ray showed right lower lobe infiltrate. After negative imaging, stroke signed off with altered mental status most likely secondary to infectious etiology. Patient was given 500 mL normal saline, cefepime and vancomycin Patient was planned to be transferred to [facility]. In route, patient was hypotensive, unresponsive and febrile. Patient was taken back to [facility], femoral central line was placed and was started on Levophed and transferred toT. Upon arrival in the ICU, heart rate 96, blood pressure 150/72, respiratory rate 18, saturation 91% on room air. Patient is alert but confused and does not follow commands. 02/07: Patient has been seen and examined today, he looks somnolent and is not following the commands. Vitals BP 150/72, HR 95, RR 25, map 9, SpO2, 100% on 1.5 L nasal cannula. 03/17: Patient has been seen and examined today, he is oriented by 3, no acute event overnight, his tremor improved today (CK 104), sometimes looks agitated. BP 100/67 RR 15 heart rate 88 Bedside monitor A paced Plan for video swallow study, no Zyprexa, resume psych meds OBJECTIVE Vitals Temp: [36.6 ??C (97.9 ??F)-38.2 ??C (100.7 ??F)] 36.6 ??C (97.9 ??F) Pulse: [60-112] 86 Resp: [13-34] 16 BP: (68-160)/(41-138) 112/69 SpO2: [86 %-100 %] 98 % O2 Device: Nasal cannula O2 Flow Rate (L/min): [2 L/min-6 L/min] 2 L/min Weight: Admission weight: 86.5 kg (190 lb 11.2 oz) Wt Readings from Last 3 Encounters: 03/18/25 84.1 kg (185 lb 6.5 oz) 03/16/25 83 kg (183 lb) 02/28/25 83.4 kg (183 lb 13.8 oz) Input/Output: Intake/Output Summary (Last 24 hours) at 03/18/2025 0817 Last data filed at 03/18/2025 0700 Gross per 24 hour Intake 306.16 ml Output 360 ml Net -53.84 ml Ventilator: Physical Exam Physical Exam Constitutional: General: He is not in acute distress. Comments: The patient appears somnolent and is not following commands Cardiovascular: Rate and Rhythm: Normal rate and regular rhythm. Heart sounds: Murmur heard. Pulmonary: Effort: No respiratory distress. Breath sounds: Normal breath sounds. No wheezing. Abdominal: General: Bowel sounds are normal. Palpations: Abdomen is soft. Musculoskeletal: Right lower leg: No edema. Left lower leg: No edema. Neurological: Mental Status: He is oriented to person, place, and time. Lab Results Results from last 7 days Lab Units 03/18/25 0503 03/18/25 0203 03/17/25 0740 03/17/25 0223 03/16/25 1132 WBC 10^9/L -- 4.6 -- 5.0 8.1 HEMOGLOBIN g/dL 7.4* 7.2* 8.0* 7.0* 8.1* HEMATOCRIT % -- 21.6* 24.0* 20.5* 23.9* PLATELETS 10^9/L -- 109* -- 77* 84* Results from last 7 days Lab Units 03/15/25 1739 APTT sec 39* INR 2.1* Results from last 7 days Lab Units 03/18/25 0203 03/17/25 0627 03/17/25 0223 03/16/25 1132 03/16/25 0135 03/15/25 1739 SODIUM mmol/L 135 -- 139 139 -- 136 POTASSIUM mmol/L 3.9 4.3 3.5 4.1 -- 4.0 CHLORIDE mmol/L 101 -- 105 104 -- 100 CO2 mmol/L 23 -- 24 24 -- 24 BUN mg/dL 52* -- 34* 59* -- 51* CREATININE mg/dL 3.33* -- 2.28* 3.86* -- 3.13* CALCIUM mg/dL 8.8 -- 8.3* 9.1 -- 9.2 MAGNESIUM mg/dL -- -- 1.7* -- 1.9 1.8 Results from last 7 days Lab Units 03/18/25 0203 03/17/25 0223 03/16/25 1132 ALBUMIN g/dL 3.0* 2.8* 3.4 PROTEIN TOTAL g/dL 5.9* 5.4* 6.7 ALT U/L 8 6 6 AST U/L 12 10 10 ALK PHOS U/L 115 100 122 Results from last 7 days Lab Units 03/18/25 02003/17/25 0223 BEDSIDE GLUCOSE mg/dL -- 180* GLUCOSE mg/dL 166* 122* No results found for: HGBA1C Results from last 7 days Lab Units 03/16/25 0538 03/16/25 0240 03/16/25 0135 03/15/25 1853 TROPONIN I HS ng/L -- 29* 31* 28* BNP pg/mL 951* -- -- -- Results from last 7 days Lab Units 03/18/25 0203 03/15/25 1739 LIPASE U/L -- 24 PROCALCITONIN ng/mL 13.33* -- Lab Results Component Value Date WBCU 3 03/15/2025 SPECIFICGRA 1.015 03/15/2025 LEUKOCYTE Negative 03/15/2025 NITRITEN Positive (A) 02/24/2025 PHNUR 6.5 02/24/2025 PROTEINNUR >=300 mg/dL (A) 02/24/2025 KETONESNUR 15 mg/dL (A) 02/24/2025 UROBILINOGEN 1.0 eu/dL 03/15/2025 BLOODHGBNU Large (A) 02/24/2025 Radiology X-ray chest 1 view Result Date: 03/16/2025 History: Right lower lobe infiltrate Technique: A portable single frontal view of the chest was obtained. Comparison: 03/15/25 Findings: A right lower lobe infiltrate is again seen. The heart size remains enlarged but is unchanged. The remaining lung emery are clear. There is a stable tunneled dialysis catheter on the right. Impression: Stable right lower lobe infiltrate. Finalized by Aurelio Saldaña MD on 03/16/2025 1:57 AM X-ray chest 1 view Result Date: 03/15/2025 Portable chest: HISTORY: Cough. Single view the chest was obtained and compared to prior exam 02/24/2025. There is right lower lobe infiltrate. Cardiac contour is enlarged but unchanged. No pneumothorax. Pulmonary vasculature is stable. IMPRESSION: Lower lobe infiltrate. Finalized by Kp Serrano MD on 03/15/2025 5:[address] brain without contrast stroke alert Result Date: 03/15/2025 HISTORY: A 70-year-old male with a history of the altered mental status and new hallucination. There is history of dementia and patient is on dialysis. EXAM/TECHNIQUE: Multidetector spiral CT scan ofbrain is performed. Multiplanar reconstruction images are reformatted. All CT scans at this facility use dose modulation, iterative reconstruction, and/or weight based dosing when appropriate to reduce radiation dose to as low as reasonably achievable. COMPARISON: Comparison is made with CT scan ofbrain of 02/24/2025. FINDINGS: The ventricular system is normal in size and configuration. There ismild degree of cortical atrophy. There is normal differentiation of zelaya and white matters. There is no evidence of intracranial hemorrhage or acute pathology. The cerebellum and brainstem are unremarkable. No mass effect, midline shift of the structures or extra-axial fluid collections are noted. The calvarium is intact. The visualized paranasal sinuses and mastoid air cells are clear. IMPRESSION: * No evidence of intracranial hemorrhage or acute pathology. Finalized by Rakesh Zhu MD on 03/15/2025 5:19 PM Cultures Microbiology Results Procedure Component Value Units Date/Time Blood culture #1 [[id number]] Collected: 03/16/255 Specimen: Blood, Venous Updated: 03/17/252300 CULTURE RESULTS NO GROWTH AT 36 HOURS Narrative: Suboptimal volume of blood collected, Results may be affected. Blood culture #2 [[id number]] Collected: 03/16/255 Specimen: Blood, Venous Updated: 03/17/252300 CULTURE RESULTS NO GROWTH AT 36 HOURS Narrative: Suboptimal volume of blood collected, Results may be affected. Mrsa Pcr nasal swab [[id number]] (Normal) Collected: 03/16/2548 Specimen: Swab from Nostril Updated: 03/16/2559 MRSA PCR NASAL Negative Resp Pathogens Panel/SARS CoV-2 [[id number]] (Normal) Collected: 03/16/2548 Specimen: Swab from Nasopharynx Updated: 03/16/2549 SARS COV 2 BY PCR Not Detected ADENOVIRUS Not Detected CORONAVIRUS 229E Not Detected CORONAVIRUS HKU1 Not Detected CORONAVIRUS NL63 Not Detected CORONAVIRUS OC43 Not Detected HUMAN METAPNEUVIRUS Not Detected RHINO/ENTEROVIRUS Not Detected INFLUENZA A Not Detected INFLUENZA B Not Detected PARAINFLUENZA 1 Not Detected PARAINFLUENZA 2 Not Detected PARAINFLUENZA 3 Not Detected PARAINFLUENZA 4 Not Detected RESP SYNCYTIAL VIRUS Not Detected BORD PARAPERTUSSIS Not Detected BORDETELLA PERTUSSIS Not Detected CHLAM.PNEUMONIAE Not Detected MYCOPLASMA PNEUMONIAE Not Detected Narrative: The [employer] Respiratory Panel 2.1 (RP2.1) is a multiplexed nucleic acid test intended for the simultaneous qualitative detection and differentiation of nucleic acid from multiple viral and bacterial respiratory organisms, including nucleic acid from Severe Acute Respiratory Syndrome Coronavirus 2 (SARS-CoV-2), in nasopharyngeal swabs obtained from individuals suspected of COVID-19 by their healthcare provider. Testing is limited to laboratories certified under the Clinical Laboratory Improvement Amendments of 1988 (CLIA), to perform high complexity or moderate complexity tests. SARS-CoV-2 RNA and nucleic acids from the other respiratory viral and bacterial organisms identified by this test are generally detectable in nasopharyngeal swabs during the acute phase of infection.The detection and identification of specific viral and bacterial nucleic acids from individuals exhibiting signs and/or symptoms of respiratory infection is indicative of the presence of the identified microorganism and aids in the diagnosis of respiratory infection if used in conjunction with other clinical and epidemiological information. Positive results are indicative of the presence of the identified organism, but do not rule out co-infection with other pathogens. The agent(s) detected by the [employer] RP2.1 may not be the definite cause of disease and clinical correlation with patient history and other diagnostic information is necessary to determine patient infection status. Negative results in the setting of a respiratory illness may be due to infection with pathogens notdetected by this test, or lower respiratory tract infection that may not be detected by a nasopharyngeal specimen. Negative results do not preclude SARS-CoV-2 infection and should not be used as the sole basis for patient management decisions. Negative HORACIO-CoV-2 results must be combined with clinical observations, patient history and epidemiological information. Negative results for other organisms identified by the test may require additional laboratory testing when evaluating a patient with possible respiratory tract infection. Urine Culture Urine, Indwelling Catheter [[id number]] (Abnormal) Collected: 03/15/25 1751 Specimen: Urine, Indwelling Catheter Updated: 03/17/25 1144 CULTURE RESULTS 50,000-100,000 CFU/mL Enterococcus species Blood culture [[id number]] Collected: 03/15/25 1739 Specimen: Blood, Venous Updated: 03/18/25 0002 CULTURE RESULTS NO GROWTH 2 DAYS Narrative: Suboptimal volume of blood collected, Results may be affected. Blood culture [[id number]] Collected: 03/15/25 1739 Specimen: Blood, Venous Updated: 03/18/25 0002 CULTURE RESULTS NO GROWTH 2 DAYS Narrative: Suboptimal volume of blood collected, Results may be affected. Medications Scheduled: apixaban, 5 mg, oral, BID ARIPiprazole, 10 mg, oral, Daily aspirin, 81 mg, nasogastric, Daily atorvastatin, 40 mg, nasogastric, Daily busPIRone, 15 mg, nasogastric, TID cholecalciferol (vitamin D3), 1,000 Units, nasogastric, Daily cyanocobalamin, 1,000 mcg, nasogastric, Daily darbepoetin sylwia (ARANESP) injection, 60 mcg, subcutaneous, Weekly DULoxetine, 20 mg, oral, Daily ferrous sulfate, 325 mg, nasogastric, Daily with breakfast gabapentin, 100 mg, oral, TID [COMPLETED] meropenem, 500 mg, intravenous, Once FOLLOWED BY meropenem, 500 mg, intravenous, Q24H midodrine, 10 mg, oral, TID pantoprazole, 40 mg, oral, QAM AC risperiDONE, 3 mg, oral, Nightly rivastigmine, 1 patch, transdermal, Daily sodium chloride, 10 mL, intravenous, Q96H sodium chloride, 10 mL, intravenous, Q96H sodium chloride, 30 mL, intravenous, Q8H AND sodium chloride, 10 mL, intravenous, PRN AND sodium chloride, 20 mL, intravenous, PRN [START ON 03/20/2025] sodium citrate, 1.6 mL, intravenous, Q96H [START ON 03/20/2025] sodium citrate, 1.6 mL, intravenous, Q96H topiramate, 200 mg, nasogastric, BID Infusions: dexmedeTOMIDine, 0.1-0.7 mcg/kg/hr, Last Rate: Stopped (03/17/25 1041) norepinephrine, 0.01-0.2 mcg/kg/min, Last Rate: 0.04 mcg/kg/min (03/18/25 0700) As Needed: acetaminophen calcium gluconate OR calcium gluconate OR [DISCONTINUED] calcium gluconate ipratropium-albuteroL magnesium sulfate OR [DISCONTINUED] magnesium sulfate sodium chloride AND sodium chloride AND sodium chloride sodium chloride sodium chloride sodium chloride sodium chloride sodium citrate sodium citrate sodium phosphate IV OR sodium phosphate IV - central line OR [DISCONTINUED] sod phos di, mono-K phos mono ASSESSMENT AND PLAN ASSESSMENT Acute on chronic hypoxic respiratory failure secondary to pneumonia (right lower infiltrate on x ray) - pneumoniae workup (urine Legionella and strep, respiratory pathogen panel, MRSA nasal swab) normal - Blood culture no growth 36 hours - Sputum culture/ pending not collected - MRSA PCR negative - SpO2 100% on 2.5 L NC - Chest x-ray 03/16: Stable right lower lobe infiltrate, plan to repeat chest x- ray tomorrow morning - On meropenem 500 mg Q 24 hour (day3) Metabolic encephalopathy secondary to above Symptomatic hypotension requiring pressor support-most likely secondary to pain medication (received morphine en route)-patient does not have end-organ damage and has normal lactate, less likely shock - resume midodrine 10 mg t.i.d. - hold vasopressor and reassess Heart failure with reduced EF (EF 35% with grade 3 diastolic dysfunction 01/2025) Paroxysmal Afib - Resume ASPIRIN and Eliquis ESRD on hemodialysis (T/T/S) Hyperglycemia with type 2 diabetes mellitus Mildly elevated troponin-type 2 demand ischemia Recent ESBL E coli UTI - 03/15 urine culture: positive to Enterococcus species - On meropenem 500 mg Q 24 hour (day3) 10. COPD not on exacerbation-baseline 2 L oxygen at home 11.History of CAD status post stent 12.History of CABG 13.Anemia of chronic disease PLAN Admit to ICU for close cardiopulmonary monitoring Continue pressor support with Levophed to maintain map above 65, stopped yesterday 03/16 at 22:25 and reassess Resume midodrine 10 mg t.i.d. Continue supplemental oxygen to maintain saturation above 90 Consult Nephrology for hemodialysis Medium insulin sliding scale Resume home psych medication Bedside swallow/ feeding evaluation: Level 4 pureed and no liquid Ventilation: 2.5 L nasal cannula Sedation: none Vasopressors: None Antibiotics: Meropenem DVT prophylaxis: Eliquis GI prophylaxis: Pantoprazole Lines: Femoral central line Diet: Pureed diet Fluids: None Code Status: Most likely full cod This progress note was completed using a voice mailing jogger system. Every effort was made to ensure accuracy. However, inadvertent computerized mailing jogger errors may be present. Ole Best MD PGY-1 Internal Medicine Resident Adult ICU 03/18/25 8:17 AM Cosigned by Celina Mckeon DO at 03/18/2025 2:01 PM EST Associated attestation - Celina Mckeon DO - 03/18/2025 2:01 PM EST Attestation signed by 1:57 PM PULMONARY/CRITICAL CARE ATTENDING ATTESTATION I have personally and independently examined the patient. I confirm the note and agree with the assessment and plan as documented by the nurse practitioner. Please note there may be additional comments below. Comments Patient off precedex gtt since yesterday. Off IV pressors this am and presently tolerating HD off pressors. He is alert and confused at times. Intermittently agitated and yells but redirectable. He is improved per staff since resuming home regimen yesterday. Currently appears to be breathing comfortably on NC. Remains on antimicrobials. Recommendations Plan for resume oral meds. Speech therapy and video swallow evaluation pending. Remains off levophed and on midodrine. Tolerating HD. Wean O2 for saturation >90% Repeat CXR. If persistent opacity will need CT chest. Continue glucose montioring. Remains on Merrem for ESBL UTI and findings concerning of pneumonia. Discussed with RN. Please see orders. Okay to transfer out of ICU later this afternoon. Celina Mckeon DO. [facility] Pager: [phone] * Grzegorz Pacheco MD - 03/17/2025 11:52 AM EST Images from the original note were not included. [facility] Matt Goncalves, THADDEUS Reason for Follow up: ESRD. Assessment End stage renal disease (ESRD) on maintenance hemodialysis, Friday, , Friday schedule [facility] under the care of Dr. Matt Sharma. He had dialysis yesterday. Will plan for nxt HD on Fri/Fri. Electrolyte Abnormalities: Stable on initial evaluation. Acid-Base status: No significant acidosis or alkalosis on initial evaluation. Volume Status: Appears euvolemic to slightly hypervolemic based on recent admission for HFrEF. Currently on vasopressors which can affect volume assessment. Hypertension: Historically managed with multiple agents, currently held due to shock. Hemodynamics: History of reduced LVEF EF 35% per last echo on 01/2025. Currently on vasopressor support. Anemia of CKD: Most recent hemoglobin is 8.1 g/dL. CKD-MBD / Renal Osteodystrophy: To be managed as per outpatient protocol. Sepsis secondary to right-sided pneumonia. Septic shock requiring vasopressor support. Acute on chronic hypoxic respiratory failure. COPD on 2L NC at baseline Acute Metabolic encephalopathy. Heart failure with reduced ejection fraction (HFrEF). Paroxysmal atrial fibrillation on Eliquis. Type 2 diabetes mellitus. Plan Holding all home antihypertensive medications pre-dialysis. Will re-evaluate post-dialysis for possible resumption of some oral antihypertensives. Midodrine may be used as needed for intradialytic or post-dialysis hypotension. Strict I&O, bladder scan q12h, Daily weight, accurate documentation of urine output. Erythropoietin-stimulating agent (KG) per protocol. 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 On Puree diet. Dose all medications to GFR <10 ml/min. Renal chemistry panel monitoring in AM. Please do not hesitate to call with questions. SUBJECTIVE: Confused. Appears comfortable. Review Of Systems: Unable to obtain as he is confused. Scheduled Meds: acetaminophen, 1,000 mg, intravenous, Q6H apixaban, 5 mg, oral, BID ARIPiprazole, 10 mg, oral, Daily aspirin, 81 mg, nasogastric, Daily atorvastatin, 40 mg, nasogastric, Daily busPIRone, 15 mg, nasogastric, TID cholecalciferol (vitamin D3), 1,000 Units, nasogastric, Daily cyanocobalamin, 1,000 mcg, nasogastric, Daily darbepoetin sylwia (ARANESP) injection, 60 mcg, subcutaneous, Weekly DULoxetine, 20 mg, oral, Daily ferrous sulfate, 325 mg, nasogastric, Daily with breakfast gabapentin, 100 mg, oral, TID [COMPLETED] meropenem, 500 mg, intravenous, Once FOLLOWED BY meropenem, 500 mg, intravenous, Q24H pantoprazole, 40 mg, oral, QAM AC risperiDONE, 3 mg, oral, Nightly rivastigmine, 1 patch, transdermal, Daily sodium chloride, 10 mL, intravenous, Q96H sodium chloride, 10 mL, intravenous, Q96H sodium chloride, 30 mL, intravenous, Q8H AND sodium chloride, 10 mL, intravenous, PRN AND sodium chloride, 20 mL, intravenous, PRN [START ON 03/20/2025] sodium citrate, 1.6 mL, intravenous, Q96H [START ON 03/20/2025] sodium citrate, 1.6 mL, intravenous, Q96H topiramate, 200 mg, nasogastric, BIDContinuous Infusions: dexmedeTOMIDine, 0.1- 0.7 mcg/kg/hr, Last Rate: 0.7 mcg/kg/hr (03/17/25 0644) PRN Meds: calcium gluconate OR calcium gluconate OR calcium gluconate ipratropium-albuteroL magnesium sulfate OR magnesium sulfate potassium chloride OR potassium chloride potassium chloride in water OR potassium chloride in water sodium phosphate IV OR sodium phosphate IV - central line OR sod phos di, mono-K phos mono sodium chloride AND sodium chloride AND sodium chloride sodium chloride sodium chloride sodium chloride sodium chloride sodium citrate sodium citrate vancomycin Allergies Allergen Reactions Diphenhydramine Anxiety, Hallucinations and Other (See Comments) Confusion Amlodipine Depakote [Divalproex] Felodipine Metformin Nitroglycerin Hives Patient states I get hives , breakout in rashes Ropinirole Sulfa (Sulfonamide Antibiotics) Physical Exam: Blood pressure 110/62, pulse 60, temperature 36.4 ??C (97.6 ??F), temperature source Oral, resp. rate 18, weight 83.6 kg (184 lb 4.9 oz), SpO2 97%. Intake/Output Summary (Last 24 hours) at 03/17/2025 1152 Last data filed at 03/17/2025 0644 Gross per 24 hour Intake 1420.55 ml Output 825 ml Net 595.55 ml General: Awake, in no distress. HEENT: Atraumatic, normocephalic. Anicteric sclera. Drumright and moist oral mucosa. No carotid bruit. No JVD. Chest: Bilateral air entry, clear to auscultation, no wheezing, rhonchi or rales. Cardiovascular: RRR, S1S2, no murmur, rub or gallop. Has lower extremity edema. Abdomen: Soft, non tender to palpation. Active bowel sounds x 4 quadrants. Musculoskeletal: Active ROM x 4 extremities. No cyanosis or clubbing. Integumentary: Drumright, warm and dry. Free from rash or lesions. Skin turgor normal. 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 Face symmetrical. No tremor. Data: CBC: Lab Results Component Value Date WBC 5.0 03/17/2025 HGB 8.0 (L) 03/17/2025 HCT 24.0 (L) 03/17/2025 MCV 94 03/17/2025 PLT 77 (L) 03/17/2025 BMP: Lab Results Component Value Date K 4.3 03/17/2025 CL 105 03/17/2025 CO2 24 03/17/2025 BUN 34 (H) 03/17/2025 CREATININE 2.28 (H) 03/17/2025 CMP: Lab Results Component Value Date K 4.3 03/17/2025 CL 105 03/17/2025 CO2 24 03/17/2025 BUN 34 (H) 03/17/2025 CREATININE 2.28 (H) 03/17/2025 CALCIUM 8.3 (L) 03/17/2025 ALKPHOS 100 03/17/2025 AST 10 03/17/2025 ALT 6 03/17/2025 Hepatic: Lab Results Component Value Date AST 10 03/17/2025 ALT 6 03/17/2025 ALKPHOS 100 03/17/2025 BNP: Lab Results Component Value Date BNP 951 (H) 03/16/2025 Lipids: No results found for: CHOL , HDL INR: Lab Results Component Value Date INR 2.1 (H) 03/15/2025 PTH: No results found for: PTH Phosphorus: No results found for: PHOS Ionized Calcium: No components found for: IONCA Magnesium: Lab Results Component Value Date MG 1.7 (L) 03/17/2025 Albumin: No components found for: LABALBU Last 3 CK, CKMB, Troponin: Results from last 7 days Lab Units 03/16/25 1801 CPK ISOENZYMES U/L 104 URINE:)No results found for: NAUR , PROTUR Radiology: Reviewed. - Grzegorz Pacheco MD 03/17/25 11:52 AM * Ole Best MD - 03/17/2025 6:16 AM EST Images from the original note were not included. Adult ICU Progress Note Patient - Timmy Muñoz Age - 70 y.o. - 1955 Date of Admission - 03/16/2025 5:16 AM SUBJECTIVE Patient has been seen and examined today, he is oriented by 3, no acute event overnight, his tremorimproved today (CK 104), sometimes looks agitated. BP 100/67 RR 15 heart rate 88 Bedside monitor A paced Plan for video swallow study, no Zyprexa, resume psych meds HPI and Interval History Timmy Muñoz is a 70 y.o. male with a past medical history of COPD on 2 L oxygen at baseline, history of CAD status post stent, history of CABG, ischemic cardiomyopathy, HFrEF (last echo showed EFof 35%), paroxysmal Afib on Eliquis, hypertension, ESRD on hemodialysis (T/T/S), type 2 diabetes mellitus he has been admitted to ICU for septic shock. [facility] ED course: Patient initially presented yesterday at [facility] via EMS with history of altered mental status. Patient was found to have left-sided deficit, facial droop and slurring of speech. Stroke alert was called at [facility]. Of note, patient was recently discharged on 03/01/2025 where he was admitted for ESBL E coli UTI and new onset tremors. Patient was treated with IV Invanz. Pertinent labs: WBC 9.4, hemoglobin 9.4, creatinine 3.13, lactate 1.3, urinalysis negative for leukocyte and nitrate, troponin 29 Imaging: CT brain was negative for acute pathology. Chest x-ray showed right lower lobe infiltrate. After negative imaging, stroke signed off with altered mental status most likely secondary to infectious etiology. Patient was given 500 mL normal saline, cefepime and vancomycin Patient was planned to be transferred to [facility]. In route, patient was hypotensive, unresponsive and febrile. Patient was taken back to [facility], femoral central line was placed and was started on Levophed and transferred toT. Upon arrival in the ICU, heart rate 96, blood pressure 150/72, respiratory rate 18, saturation 91% on room air. Patient is alert but confused and does not follow commands. 02/07: Patient has been seen and examined today, he looks somnolent and is not following the commands. Vitals BP 150/72, HR 95, RR 25, map 9, SpO2, 100% on 1.5 L nasal cannula. OBJECTIVE Vitals Temp: [36.4 ??C (97.6 ??F)-39.4 ??C (102.9 ??F)] 36.4 ??C (97.6 ??F) Pulse: [60-101] 68 Resp: [14-27] 20 BP: (84-199)/(49-186) 109/77 SpO2: [80 %-100 %] 98 % O2 Device: Nasal cannula O2 Flow Rate (L/min): [2 L/min-6 L/min] 6 L/min Weight: Admission weight: 86.5 kg (190 lb 11.2 oz) Wt Readings from Last 3 Encounters: 03/17/25 83.6 kg (184 lb 4.9 oz) 03/16/25 83 kg (183 lb) 02/28/25 83.4 kg (183 lb 13.8 oz) Input/Output: Intake/Output Summary (Last 24 hours) at 03/17/2025 0616 Last data filed at 03/17/2025 0600 Gross per 24 hour Intake 1386.06 ml Output 825 ml Net 561.06 ml Ventilator: Physical Exam Physical Exam Constitutional: General: He is in acute distress. Comments: The patient appears somnolent and is not following commands Cardiovascular: Rate and Rhythm: Normal rate and regular rhythm. Heart sounds: Murmur heard. Pulmonary: Effort: No respiratory distress. Breath sounds: Normal breath sounds. No wheezing. Abdominal: General: Bowel sounds are normal. Palpations: Abdomen is soft. Musculoskeletal: Right lower leg: No edema. Left lower leg: No edema. Neurological: Mental Status: He is oriented to person, place, and time. Lab Results Results from last 7 days Lab Units 03/17/2522203/16/25113103/15/25 1739 WBC 10^9/L 5.0 8.1 9.4 HEMOGLOBIN g/dL 7.0* 8.1* 9.4* HEMATOCRIT % 20.5* 23.9* 27.3* PLATELETS 10^9/L 77* 84* 96* Results from last 7 days Lab Units 03/15/25 1739 APTT sec 39* INR 2.1* Results from last 7 days Lab Units 03/17/2522203/16/25113103/16/2513403/15/25 1739 SODIUM mmol/L 139 139 -- 136 POTASSIUM mmol/L 3.5 4.1 -- 4.0 CHLORIDE mmol/L 105 104 -- 100 CO2 mmol/L 24 24 -- 24 BUN mg/dL 34* 59* -- 51* CREATININE mg/dL 2.28* 3.86* -- 3.13* CALCIUM mg/dL 8.3* 9.1 -- 9.2 MAGNESIUM mg/dL 1.7* -- 1.9 1.8 Results from last 7 days Lab Units 03/17/2522203/16/25 11303/15/25 1739 ALBUMIN g/dL 2.8* 3.4 3.6 PROTEIN TOTAL g/dL 5.4* 6.7 7.6 ALT U/L 6 6 9 AST U/L 10 10 13 ALK PHOS U/L 100 122 147* Results from last 7 days Lab Units 03/17/2522203/16/25 1917 BEDSIDE GLUCOSE mg/dL 180* 118* GLUCOSE mg/dL 122* -- No results found for: HGBA1C Results from last 7 days Lab Units 03/16/25 0538 03/16/25 0240 03/16/25 0135 03/15/25 1853 TROPONIN I HS ng/L -- 29* 31* 28* BNP pg/mL 951* -- -- -- Results from last 7 days Lab Units 03/15/25 1739 LIPASE U/L 24 Lab Results Component Value Date WBCU 3 03/15/2025 SPECIFICGRA 1.015 03/15/2025 LEUKOCYTE Negative 03/15/2025 NITRITEN Positive (A) 02/24/2025 PHNUR 6.5 02/24/2025 PROTEINNUR >=300 mg/dL (A) 02/24/2025 KETONESNUR 15 mg/dL (A) 02/24/2025 UROBILINOGEN 1.0 eu/dL 03/15/2025 BLOODHGBNU Large (A) 02/24/2025 Radiology X-ray chest 1 view Result Date: 03/16/2025 History: Right lower lobe infiltrate Technique: A portable single frontal view of the chest was obtained. Comparison: 03/15/25 Findings: A right lower lobe infiltrate is again seen. The heart size remains enlarged but is unchanged. The remaining lung emery are clear. There is a stable tunneled dialysis catheter on the right. Impression: Stable right lower lobe infiltrate. Finalized by Aurelio Saldaña MD on 03/16/2025 1:57 AM X-ray chest 1 view Result Date: 03/15/2025 Portable chest: HISTORY: Cough. Single view the chest was obtained and compared to prior exam 02/24/2025. There is right lower lobe infiltrate. Cardiac contour is enlarged but unchanged. No pneumothorax. Pulmonary vasculature is stable. IMPRESSION: Lower lobe infiltrate. Finalized by Kp Serrano MD on 03/15/2025 5:[address] brain without contrast stroke alert Result Date: 03/15/2025 HISTORY: A 70-year-old male with a history of the altered mental status and new hallucination. There is history of dementia and patient is on dialysis. EXAM/TECHNIQUE: Multidetector spiral CT scan ofbrain is performed. Multiplanar reconstruction images are reformatted. All CT scans at this facility use dose modulation, iterative reconstruction, and/or weight based dosing when appropriate to reduce radiation dose to as low as reasonably achievable. COMPARISON: Comparison is made with CT scan ofbrain of 02/24/2025. FINDINGS: The ventricular system is normal in size and configuration. There ismild degree of cortical atrophy. There is normal differentiation of zelaya and white matters. There is no evidence of intracranial hemorrhage or acute pathology. The cerebellum and brainstem are unremarkable. No mass effect, midline shift of the structures or extra-axial fluid collections are noted. The calvarium is intact. The visualized paranasal sinuses and mastoid air cells are clear. IMPRESSION: * No evidence of intracranial hemorrhage or acute pathology. Finalized by Rakesh Zhu MD on 03/15/2025 5:19 PM Cultures Microbiology Results Procedure Component Value Units Date/Time Blood culture #1 [[id number]] Collected: 03/16/25 1035 Specimen: Blood, Venous Updated: 03/16/252300 CULTURE RESULTS NO GROWTH <24 HRS Narrative: Suboptimal volume of blood collected, Results may be affected. Blood culture #2 [[id number]] Collected: 03/16/25 1035 Specimen: Blood, Venous Updated: 03/16/252300 CULTURE RESULTS NO GROWTH <24 HRS Narrative: Suboptimal volume of blood collected, Results may be affected. Mrsa Pcr nasal swab [[id number]] (Normal) Collected: 03/16/2548 Specimen: Swab from Nostril Updated: 03/16/25 0959 MRSA PCR NASAL Negative Resp Pathogens Panel/SARS CoV-2 [[id number]] (Normal) Collected: 03/16/2548 Specimen: Swab from Nasopharynx Updated: 03/16/25 0949 SARS COV 2 BY PCR Not Detected ADENOVIRUS Not Detected CORONAVIRUS 229E Not Detected CORONAVIRUS HKU1 Not Detected CORONAVIRUS NL63 Not Detected CORONAVIRUS OC43 Not Detected HUMAN METAPNEUVIRUS Not Detected RHINO/ENTEROVIRUS Not Detected INFLUENZA A Not Detected INFLUENZA B Not Detected PARAINFLUENZA 1 Not Detected PARAINFLUENZA 2 Not Detected PARAINFLUENZA 3 Not Detected PARAINFLUENZA 4 Not Detected RESP SYNCYTIAL VIRUS Not Detected BORD PARAPERTUSSIS Not Detected BORDETELLA PERTUSSIS Not Detected CHLAM.PNEUMONIAE Not Detected MYCOPLASMA PNEUMONIAE Not Detected Narrative: The [employer] Respiratory Panel 2.1 (RP2.1) is a multiplexed nucleic acid test intended for the simultaneous qualitative detection and differentiation of nucleic acid from multiple viral and bacterial respiratory organisms, including nucleic acid from Severe Acute Respiratory Syndrome Coronavirus 2 (SARS-CoV-2), in nasopharyngeal swabs obtained from individuals suspected of COVID-19 by their healthcare provider. Testing is limited to laboratories certified under the Clinical Laboratory Improvement Amendments of 1988 (CLIA), to perform high complexity or moderate complexity tests. SARS-CoV-2 RNA and nucleic acids from the other respiratory viral and bacterial organisms identified by this test are generally detectable in nasopharyngeal swabs during the acute phase of infection.The detection and identification of specific viral and bacterial nucleic acids from individuals exhibiting signs and/or symptoms of respiratory infection is indicative of the presence of the identified microorganism and aids in the diagnosis of respiratory infection if used in conjunction with other clinical and epidemiological information. Positive results are indicative of the presence of the identified organism, but do not rule out co-infection with other pathogens. The agent(s) detected by the [employer] RP2.1 may not be the definite cause of disease and clinical correlation with patient history and other diagnostic information is necessary to determine patient infection status. Negative results in the setting of a respiratory illness may be due to infection with pathogens notdetected by this test, or lower respiratory tract infection that may not be detected by a nasopharyngeal specimen. Negative results do not preclude SARS-CoV-2 infection and should not be used as the sole basis for patient management decisions. Negative HORACIO-CoV-2 results must be combined with clinical observations, patient history and epidemiological information. Negative results for other organisms identified by the test may require additional laboratory testing when evaluating a patient with possible respiratory tract infection. Urine Culture Urine, Indwelling Catheter [[id number]] Collected: 03/15/25 1751 Specimen: Urine, Indwelling Catheter Updated: 03/15/25 1859 Blood culture [[id number]] Collected: 03/15/25 1739 Specimen: Blood, Venous Updated: 03/17/25 0004 CULTURE RESULTS NO GROWTH 1 DAY Narrative: Suboptimal volume of blood collected, Results may be affected. Blood culture [[id number]] Collected: 03/15/25 173 Specimen: Blood, Venous Updated: 03/17/25 0004 CULTURE RESULTS NO GROWTH 1 DAY Narrative: Suboptimal volume of blood collected, Results may be affected. Medications Scheduled: acetaminophen, 1,000 mg, intravenous, Q6H apixaban, 5 mg, nasogastric, BID ARIPiprazole, 10 mg, oral, Daily aspirin, 81 mg, nasogastric, Daily atorvastatin, 40 mg, nasogastric, Daily busPIRone, 15 mg, nasogastric, TID cholecalciferol (vitamin D3), 1,000 Units, nasogastric, Daily cyanocobalamin, 1,000 mcg, nasogastric, Daily darbepoetin sylwia (ARANESP) injection, 60 mcg, subcutaneous, Weekly DULoxetine, 20 mg, oral, Daily ferrous sulfate, 325 mg, nasogastric, Daily with breakfast gabapentin, 100 mg, oral, TID [COMPLETED] meropenem, 500 mg, intravenous, Once FOLLOWED BY meropenem, 500 mg, intravenous, Q24H pantoprazole, 40 mg, oral, QAM AC rivastigmine, 1 patch, transdermal, Daily sodium chloride, 10 mL, intravenous, Q96H sodium chloride, 10 mL, intravenous, Q96H sodium chloride, 30 mL, intravenous, Q8H AND sodium chloride, 10 mL, intravenous, PRN AND sodium chloride, 20 mL, intravenous, PRN [START ON 03/20/2025] sodium citrate, 1.6 mL, intravenous, Q96H [START ON 03/20/2025] sodium citrate, 1.6 mL, intravenous, Q96H topiramate, 200 mg, nasogastric, BID Infusions: dexmedeTOMIDine, 0.1-0.7 mcg/kg/hr, Last Rate: 0.5 mcg/kg/hr (03/17/25 0546) norepinephrine, 0.01-0.4 mcg/kg/min, Last Rate: Stopped (03/16/252224) sodium chloride 0.9 %, 10 mL/hr sodium chloride 0.9 %, 10 mL/hr sodium chloride 0.9 %, 10 mL/hr sodium chloride 0.9 %, 10 mL/hr As Needed: calcium gluconate OR calcium gluconate OR calcium gluconate ipratropium-albuteroL magnesium sulfate OR magnesium sulfate potassium chloride OR potassium chloride potassium chloride in water OR potassium chloride in water sodium phosphate IV OR sodium phosphate IV - central line OR sod phos di, mono-K phos mono sodium chloride AND sodium chloride AND sodium chloride sodium chloride sodium chloride sodium chloride sodium chloride sodium chloride 0.9 % sodium chloride 0.9 % sodium chloride 0.9 % sodium chloride 0.9 % sodium citrate sodium citrate vancomycin ASSESSMENT AND PLAN ASSESSMENT Acute on chronic hypoxic respiratory failure secondary to pneumonia (right lower infiltrate on x ray) Metabolic encephalopathy secondary to above Symptomatic hypotension requiring pressor support-most likely secondary to pain medication (received morphine en route)-patient does not have end-organ damage and has normal lactate, less likely shock Heart failure with reduced EF (EF 35% with grade 3 diastolic dysfunction 01/2025) Paroxysmal AFib ESRD on hemodialysis (T/T/S) Hyperglycemia with type 2 diabetes mellitus Mildly elevated troponin-type 2 demand ischemia Recent ESBL E coli UTI COPD not on exacerbation-baseline 2 L oxygen at home History of CAD status post stent History of CABG Anemia of chronic disease PLAN Admit to ICU for close cardiopulmonary monitoring Continue pressor support with Levophed to maintain map above 65, stopped yesterday 03/16 at 22:25 Continue supplemental oxygen to maintain saturation above 90 Chest x-ray 03/16: Impression: Stable right lower lobe infiltrate. On meropenem 500 mg Q 24 hour (day2) Blood culture no growth 1 day Sputum culture is pending Urine culture in process Send pneumoniae workup (urine Legionella and strep, respiratory pathogen panel, MRSA nasal swab) normal Consult Nephrology for hemodialysis CK 104 Medium insulin sliding scale Resume home psych medication Resume ASPIRIN and Eliquis Bedside swallow/ feeding evaluation: Level 4 pureed and no liquid Ventilation: 6 L nasal cannula Sedation: Precedex Vasopressors: None Antibiotics: Meropenem DVT prophylaxis: Eliquis GI prophylaxis: Pantoprazole Lines: Femoral central line Diet: Pureed diet Fluids: None Code Status: Most likely full cod This progress note was completed using a voice mailing jogger system. Every effort was made to ensure accuracy. However, inadvertent computerized mailing jogger errors may be present. Ole Best MD PGY-1 Internal Medicine Resident Adult ICU 03/17/25 6:16 AM Cosigned by Michelle Howell MD at 03/21/2025 12:40 PM EST Associated attestation - Michelle Howell MD - 03/21/2025 12:40 PM EST Attestation signed by 12:37 PM PULMONARY/CRITICAL CARE ATTENDING ATTESTATION I have personally and independently examined the patient. I confirm the note and agree with the assessment and plan as documented by the resident. Please note there may be additional comments below. Patient is a 70yo man admitted to the ICU in the setting of acute on chronic hypoxic respiratory failure in the setting of pneumonia and sepsis, with hemodynamic instability. Precedex utilized for encephalopthy, will wean off as able. Broad spectrum antibiotics for UTIL and possible pnuemonia. Previous urine culture grew enterococcus and prior to that ESBL Ecoli, therefore patient placed on merrem. Will deescalate as able. Nephrology consulted Spetic evaluation, follow up cultures Home psych meds to restart as able. Patient to remain in ICU for hemodynamic montioring Total critical care time involved with this patient equals 35 minutes excluding procedure time. The patient is at risk for further decompensation. Michelle Howell MD [facility] Pulmonary and Sleep Pulmonary / Critical Care This note was created with the assistance of a speech-recognition program. Although the intention is to generate a document that actually reflects the content of the visit, no guarantees can be provided that every mistake has been identified and corrected by editing. * Wilda Wood RPH - 03/16/2025 4:11 PM EST [facility] Department of Pharmacy Pharmacist to Physician Communication The dose of meropenem for bacteremia has been changed to 500mg IV x 1 infused over 30 minutes followed by 500mg IV every 24 hours infused over 3 hours starting 24 hours after the loading dose per [facility] approved renal dosing guidelines, based on an estimated creatinine clearance is 16.4 mL/min (A)(by C-G formula based on SCr of 3.86 mg/dL (H)). Patient receiving hemodialysis Thank you, Wilda Wood RPH * Geovany Hand PharmD - 03/16/2025 11:51 AM EST Pharmacokinetic Consult - Vancomycin Dosing Vanco scheduled 750 mg after HD. Will need to f/u on MRSA PCR and necessity of MRSA coverage. Geovany Hand PharmD * Ole Best MD - 03/16/2025 8:37 AM EST Images from the original note were not included. Adult ICU Progress Note Patient - Timmy Muñoz Age - 70 y.[facility]. [facility] 1955 [id number] Date of Admission - 03/16/2025 5:16 AM SUBJECTIVE Patient has been seen and examined today, he looks somnolent and is not following the commands. Vitals BP 150/72, HR 95, RR 25, map 9, SpO2, 100% on 1.5 L nasal cannula. HPI and Interval History Timmy Muñoz is a 70 y.o. male with a past medical history of COPD on 2 L oxygen at baseline, history of CAD status post stent, history of CABG, ischemic cardiomyopathy, HFrEF (last echo showed EFof 35%), paroxysmal Afib on Eliquis, hypertension, ESRD on hemodialysis (T/T/S), type 2 diabetes mellitus he has been admitted to ICU for septic shock. [facility] ED course: Patient initially presented yesterday at [facility] via EMS with history of altered mental status. Patient was found to have left-sided deficit, facial droop and slurring of speech. Stroke alert was called at [facility]. Of note, patient was recently discharged on 03/01/2025 where he was admitted for ESBL E coli UTI and new onset tremors. Patient was treated with IV Invanz. Pertinent labs: WBC 9.4, hemoglobin 9.4, creatinine 3.13, lactate 1.3, urinalysis negative for leukocyte and nitrate, troponin 29 Imaging: CT brain was negative for acute pathology. Chest x-ray showed right lower lobe infiltrate. After negative imaging, stroke signed off with altered mental status most likely secondary to infectious etiology. Patient was given 500 mL normal saline, cefepime and vancomycin Patient was planned to be transferred to [facility]. In route, patient was hypotensive, unresponsive and febrile. Patient was taken back to [facility], femoral central line was placed and was started on Levophed and transferred toT. Upon arrival in the ICU, heart rate 96, blood pressure 150/72, respiratory rate 18, saturation 91% on room air. Patient is alert but confused and does not follow commands. OBJECTIVE Vitals Temp: [36.4 ??C (97.6 ??F)-38.8 ??C (101.8 ??F)] 38.8 ??C (101.8 ??F) Pulse: [85-104] 93 Resp: [16-25] 19 BP: (72-188)/(52-164) 132/77 SpO2: [74 %-99 %] 98 % O2 Device: Nasal cannula O2 Flow Rate (L/min): [0 L/min] 0 L/min Weight: Admission weight: 86.5 kg (190 lb 11.2 oz) Wt Readings from Last 3 Encounters: 03/16/25 86.5 kg (190 lb 11.2 oz) 03/16/25 83 kg (183 lb) 02/28/25 83.4 kg (183 lb 13.8 oz) Input/Output: No intake or output data in the 24 hours ending 03/16/25 0837 Ventilator: Physical Exam Physical Exam Constitutional: General: He is in acute distress. Appearance: He is ill-appearing. Comments: The patient appears somnolent and is not following commands Cardiovascular: Rate and Rhythm: Normal rate and regular rhythm. Heart sounds: Murmur heard. Pulmonary: Effort: No respiratory distress. Breath sounds: Normal breath sounds. No wheezing. Abdominal: General: Bowel sounds are normal. Palpations: Abdomen is soft. Musculoskeletal: Right lower leg: No edema. Left lower leg: No edema. Lab Results Results from last 7 days Lab Units 03/15/25 1739 WBC 10^9/L 9.4 HEMOGLOBIN g/dL 9.4* HEMATOCRIT % 27.3* PLATELETS 10^9/L 96* Results from last 7 days Lab Units 03/15/25 1739 APTT sec 39* INR 2.1* Results from last 7 days Lab Units 03/16/25 0135 03/15/25 1739 SODIUM mmol/L -- 136 POTASSIUM mmol/L -- 4.0 CHLORIDE mmol/L -- 100 CO2 mmol/L -- 24 BUN mg/dL -- 51* CREATININE mg/dL -- 3.13* CALCIUM mg/dL -- 9.2 MAGNESIUM mg/dL 1.9 1.8 Results from last 7 days Lab Units 03/15/25 1739 ALBUMIN g/dL 3.6 PROTEIN TOTAL g/dL 7.6 ALT U/L 9 AST U/L 13 ALK PHOS U/L 147* Results from last 7 days Lab Units 03/16/25 0648 03/16/25 0150 03/15/25 1739 BEDSIDE GLUCOSE mg/dL 143* 200* -- GLUCOSE mg/dL -- -- 141* No results found for: HGBA1C Results from last 7 days Lab Units 03/16/25 0538 03/16/25 0240 03/16/25 0135 03/15/25 1853 TROPONIN I HS ng/L -- 29* 31* 28* BNP pg/mL 951* -- -- -- Results from last 7 days Lab Units 03/15/25 1739 LIPASE U/L 24 Lab Results Component Value Date WBCU 3 03/15/2025 SPECIFICGRA 1.015 03/15/2025 LEUKOCYTE Negative 03/15/2025 NITRITEN Positive (A) 02/24/2025 PHNUR 6.5 02/24/2025 PROTEINNUR >=300 mg/dL (A) 02/24/2025 KETONESNUR 15 mg/dL (A) 02/24/2025 UROBILINOGEN 1.0 eu/dL 03/15/2025 BLOODHGBNU Large (A) 02/24/2025 Radiology X-ray chest 1 view Result Date: 03/16/2025 History: Right lower lobe infiltrate Technique: A portable single frontal view of the chest was obtained. Comparison: 03/15/25 Findings: A right lower lobe infiltrate is again seen. The heart size remains enlarged but is unchanged. The remaining lung emery are clear. There is a stable tunneled dialysis catheter on the right. Impression: Stable right lower lobe infiltrate. Finalized by Aurelio Saldaña MD on 03/16/2025 1:57 AM X-ray chest 1 view Result Date: 03/15/2025 Portable chest: HISTORY: Cough. Single view the chest was obtained and compared to prior exam 02/24/2025. There is right lower lobe infiltrate. Cardiac contour is enlarged but unchanged. No pneumothorax. Pulmonary vasculature is stable. IMPRESSION: Lower lobe infiltrate. Finalized by Kp Serrano MD on 03/15/2025 5:[address] brain without contrast stroke alert Result Date: 03/15/2025 HISTORY: A 70-year-old male with a history of the altered mental status and new hallucination. There is history of dementia and patient is on dialysis. EXAM/TECHNIQUE: Multidetector spiral CT scan ofbrain is performed. Multiplanar reconstruction images are reformatted. All CT scans at this facility use dose modulation, iterative reconstruction, and/or weight based dosing when appropriate to reduce radiation dose to as low as reasonably achievable. COMPARISON: Comparison is made with CT scan ofbrain of 02/24/2025. FINDINGS: The ventricular system is normal in size and configuration. There ismild degree of cortical atrophy. There is normal differentiation of zelaya and white matters. There is no evidence of intracranial hemorrhage or acute pathology. The cerebellum and brainstem are unremarkable. No mass effect, midline shift of the structures or extra-axial fluid collections are noted. The calvarium is intact. The visualized paranasal sinuses and mastoid air cells are clear. IMPRESSION: * No evidence of intracranial hemorrhage or acute pathology. Finalized by Rakesh Zhu MD on 03/15/2025 5:19 PM Cultures Microbiology Results Procedure Component Value Units Date/Time Urine Culture Urine, Indwelling Catheter [[id number]] Collected: 03/15/25 175 Specimen: Urine, Indwelling Catheter Updated: 03/15/25 1859 Blood culture [[id number]] Collected: 03/15/251738 Specimen: Blood, Venous Updated: 03/15/251742 Blood culture [[id number]] Collected: 03/15/251738 Specimen: Blood, Venous Updated: 03/15/251742 Medications Scheduled: ARIPiprazole, 10 mg, oral, Daily cefepime (MAXIPIME) IV, 1,000 mg, intravenous, Q24H DULoxetine, 20 mg, oral, Daily gabapentin, 100 mg, oral, TID pantoprazole, 40 mg, oral, QAM AC sodium chloride, 30 mL, intravenous, Q8H AND sodium chloride, 10 mL, intravenous, PRN AND sodium chloride, 20 mL, intravenous, PRN vancomycin, , intravenous, Dosed by Levels Infusions: norepinephrine, 0.01-0.4 mcg/kg/min, Last Rate: 0.04 mcg/kg/min (03/16/25 0628) sodium chloride 0.9 %, 10 mL/hr sodium chloride 0.9 %, 10 mL/hr sodium chloride 0.9 %, 10 mL/hr sodium chloride 0.9 %, 10 mL/hr As Needed: calcium gluconate OR calcium gluconate OR calcium gluconate ipratropium-albuteroL magnesium sulfate OR magnesium sulfate potassium chloride OR potassium chloride potassium chloride in water OR potassium chloride in water sodium phosphate IV OR sodium phosphate IV - central line OR sod phos di, mono-K phos mono sodium chloride AND sodium chloride AND sodium chloride sodium chloride 0.9 % sodium chloride 0.9 % sodium chloride 0.9 % sodium chloride 0.9 % ASSESSMENT AND PLAN ASSESSMENT Acute on chronic hypoxic respiratory failure secondary to pneumonia (right lower infiltrate on x ray) Metabolic encephalopathy secondary to above Symptomatic hypotension requiring pressor support-most likely secondary to pain medication (received morphine en route)-patient does not have end-organ damage and has normal lactate, less likely shock Heart failure with reduced EF (EF 35% with grade 3 diastolic dysfunction 01/2025) Paroxysmal AFib ESRD on hemodialysis (T/T/S) Hyperglycemia with type 2 diabetes mellitus Mildly elevated troponin-type 2 demand ischemia Recent ESBL E coli UTI COPD not on exacerbation-baseline 2 L oxygen at home History of CAD status post stent History of CABG Anemia of chronic disease PLAN Admit to ICU for close cardiopulmonary monitoring Continue pressor support with Levophed to maintain map above 65, weaned down as tolerated Continue supplemental oxygen to maintain saturation above 90 Chest x-ray 03/16: Impression: Stable right lower lobe infiltrate. Start broad-spectrum antibiotics with vancomycin and cefepime with recent hospital admission Blood culture in process Sputum culture is pending Send pneumoniae workup (urine Legionella and strep, respiratory pathogen panel, MRSA nasal swab) normal Consult Nephrology for hemodialysis Medium insulin sliding scale Resume home medication Resume ASPIRIN and Eliquis Ventilation: room air Sedation: None Vasopressors: Levophed Antibiotics: Vancomycin and cefepime DVT prophylaxis: Eliquis GI prophylaxis: Oral Pepcid Lines: Femoral central line Diet: NG/OG Fluids: None Code Status: Most likely full cod This progress note was completed using a voice mailing jogger system. Every effort was made to ensure accuracy. However, inadvertent computerized mailing jogger errors may be present. Ole Best MD PGY-1 Internal Medicine Resident Adult ICU 03/16/25 8:37 AM Cosigned by Michelle Howell MD at 03/16/2025 2:29 PM EST Associated attestation - Michelle Howell MD - 03/16/2025 2:29 PM EST Attestation signed by 1:33 PM PULMONARY/CRITICAL CARE ATTENDING ATTESTATION I have personally and independently examined the patient. I confirm the note and agree with the assessment and plan as documented by the resident. Please note there may be additional comments below. Patient is a 70yo man with chronic hypoxic respiratory failure in the setting of COPD on 2L/min nasal canula, history of CAD s/p PCI, history of CABG, DM admitted in the setting of shock. He initiially presented to OSH with AMS. Stroke alert called and imaging negative for stroke. Patient has recent history of ESBL E.coli UTI. On evaluation at the bedside, he appears ill. Impression Acute on chronic hypoxic respiratory failure secondary to right lower lobe pneumonia and COPD Metabolic encephalopathy secondary to above Right lower lobe pneumonia Heart failure with reduced EF (EF 35% with grade 3 diastolic dysfunction 01/2025) Paroxysmal AFib ESRD on hemodialysis (T/T/S) Hyperglycemia with type 2 diabetes mellitus Recent ESBL E coli UTI COPD History of CAD status post stent History of CABG Recommendations: Supplemental oxygen to maintain sats > 90% Levophed for MAP > 65 Vancomycin and cefepime. D/c vanc if MRSA negative Follow up culture data Nephrology consulted Continue aspirin and eliquis Total critical care time involved with this patient equals 35 minutes excluding procedure time. The patient is at risk for further decompensation. Michelle Howell MD [facility] Pulmonary and Sleep Pulmonary / Critical Care This note was created with the assistance of a speech-recognition program. Although the intention is to generate a document that actually reflects the content of the visit, no guarantees can be provided that every mistake has been identified and corrected by editing. * Gordon Kurt Raymond PharmD - 03/16/2025 7:30 AM EST Images from the original note were not included. Pharmacokinetic Consult - Vancomycin Dosing Timmy Muñoz is a 70 y.o. male for whom pharmacy has been consulted for dosing vancomycin. Today is day 2 of vancomycin therapy. Indication: Pneumonia Goal Range: Trough 15-20 mcg/mL Assessment Patient is being initiated on vancomycin therapy Renal function assessment: End Stage Renal Disease on hemodialysis No vancomycin level has been collected for this patient. Patient-specific risk-factors for nephrotoxicity include: pre-existing renal impairment and advanced age Plan Will initiate vancomycin loading dose of 1750 mg IV x 1 dose, followed by vancomycin dose by levels. The next vancomycin random concentration expected to be ordered prior to 3rd HD session. Relevant clinical data and objective history reviewed: Allergies: Diphenhydramine, Amlodipine, Depakote [divalproex], Felodipine, Metformin, Nitroglycerin, Ropinirole, and Sulfa (sulfonamide antibiotics) Renal Parameters: No intake/output data recorded. Estimated Creatinine Clearance: 20.2 mL/min (A) (by C-G formula based on SCr of 3.13 mg/dL (H)). Results from last 7 days Lab Units 03/15/25 1739 CREATININE mg/dL 3.13* Recent Vancomycin Serum Concentrations: DOC FSH TEMPERATURE Temp Most Recent Value Past ~7 days 38.4 ??C (101.1 ??F) 03/16/2025 03/16/2025 38.4 ??C (101.1 ??F) 03/15/2025 37.6 ??C (99.6 ??F) More abnormal values are hidden. Newest values shown. Go to activity for more data. More values are hidden. Newest values shown. Go to activity for more data. Culture Data: Microbiology Results Procedure Component Value Units Date/Time Urine Culture Urine, Indwelling Catheter [[id number]] Collected: 03/15/25 175 Specimen: Urine, Indwelling Catheter Updated: 03/15/25 1859 Blood culture [[id number]] Collected: 03/15/25 173 Specimen: Blood, Venous Updated: 03/15/25 1743 Blood culture [[id number]] Collected: 03/15/25 173 Specimen: Blood, Venous Updated: 03/15/25 1743 Concurrent Antibiotics: Anti-infectives (From admission, onward) Start Dose/Rate Route Frequency Ordered Stop 03/16/25 1800 cefEPime (MAXIPIME) 1,000 mg in sodium chloride 0.9 % 50 mL IVPB W/ADAPTER 1,000 mg 100 mL/hr over 30 Minutes intravenous Every 24 hours 03/16/25 0651 03/16/25 0709 vancomycin (VANCOCIN) IVPB Dosed by Levels intravenous Dosed by Levels 03/16/25 0716 Pharmacy Dosing Service to follow serum concentrations and adjust as needed based on the patient's clinical status. Thank you for consulting. Gordon Raymond PharmD * Joe Baptiste PharmD - 03/16/2025 7:12 AM EST [facility] Department of Pharmacy Pharmacist to Physician Communication The dose of cefepime for pneumonia (community acquired) has been changed to 1 gram every 24 hours per the [facility] approved renal dosing guidelines, based on an estimated creatinine clearance is 20.2 mL/min (A) (by C-G formula based on SCr of 3.13 mg/dL (H)). Thank you, Joe Baptiste PharmD documented in this encounter H&P Notes * Ezio Mccabe MD - 03/16/2025 6:28 AM EST Images from the original note were not included. Adult ICU History & Physical Patient - Timmy Muñoz Age - 70 y.o. - 1955 Date of Admission - 03/16/2025 5:16 AM Chief Complaint Altered mental status Septic shock History of Present Illness Timmy Muñoz is a 70 y.o. male with a past medical history of COPD on 2 L oxygen at baseline, history of CAD status post stent, history of CABG, ischemic cardiomyopathy, HFrEF (last echo showed EFof 35%), paroxysmal Afib on Eliquis, hypertension, ESRD on hemodialysis (T/T/S), type 2 diabetes mellitus he has been admitted to ICU for septic shock. [facility] ED course: Patient initially presented yesterday at [facility] via EMS with history of altered mental status. Patient was found to have left-sided deficit, facial droop and slurring of speech. Stroke alert was called at [facility]. Of note, patient was recently discharged on 03/01/2025 where he was admitted for ESBL E coli UTI and new onset tremors. Patient was treated with IV Invanz. Pertinent labs: WBC 9.4, hemoglobin 9.4, creatinine 3.13, lactate 1.3, urinalysis negative for leukocyte and nitrate, troponin 29 Imaging: CT brain was negative for acute pathology. Chest x-ray showed right lower lobe infiltrate. After negative imaging, stroke signed off with altered mental status most likely secondary to infectious etiology. Patient was given 500 mL normal saline, cefepime and vancomycin Patient was planned to be transferred to [facility]. In route, patient was hypotensive, unresponsive and febrile. Patient was taken back to [facility], femoral central line was placed and was started on Levophed and transferred toT. Upon arrival in the ICU, heart rate 96, blood pressure 150/72, respiratory rate 18, saturation 91% on room air. Patient is alert but confused and does not follow commands. Past Medical History: Past Medical History: Diagnosis Date Acute myocardial infarction ([facility]) Cardiac pacemaker in situ Chronic systolic heart failure ([facility]) Dependence on renal dialysis Diabetes mellitus without complication ([facility]) End stage renal disease ([facility]) Has a tremor 02/25/2025 admission Hypomagnesemia Hyposmolality syndrome PNA (pneumonia) Syncope and collapse Past Surgical History: No past surgical history on file. Home Medications: Prior to Admission medications Medication Sig Start Date End Date Taking? Authorizing Provider acetaminophen (TYLENOL EXTRA STRENGTH) 500 mg tablet Take 2 tablets (1,000 mg total) by mouth every12 (twelve) hours as needed for pain. Not In System Ref Prov albuterol (PROVENTIL HFA;VENTOLIN HFA) 90 mcg/actuation inhaler Inhale 2 puffs every 6 (six) hours as needed. Not In System Ref Prov albuterol (PROVENTIL,VENTOLIN) 2.5 mg /3 mL (0.083 %) nebulizer solution Inhale 3 mL (2.5 mg total)every 6 (six) hours as needed. Not In System Ref Prov albuterol-budesonide 90-80 mcg/actuation HFA aerosol inhaler Inhale 2 puffs every 6 (six) hours as needed. Not In System Ref Prov allopurinoL (ZYLOPRIM) 100 mg tablet Take 2 tablets (200 mg total) by mouth in the morning. Not In System Ref Prov amiodarone (PACERONE) 200 mg tablet Take 1 tablet (200 mg total) by mouth in the morning. 01/11/25 Not In System Ref Prov ammonium lactate (AMLACTIN) 12 % cream Apply 1 Application topically in the morning and 1 Application before bedtime. Not In System Ref Prov apixaban (ELIQUIS) 5 mg tablet Take 1 tablet (5 mg total) by mouth in the morning and 1 tablet (5 mg total) before bedtime. 04/08/24 Not In System Ref Prov ARIPiprazole (ABILIFY) 10 mg tablet Take 1 tablet (10 mg total) by mouth in the morning. Not In System Ref Prov atorvastatin (LIPITOR) 40 mg tablet Take 1 tablet (40 mg total) by mouth in the morning. Not In System Ref Prov budesonide (PULMICORT) 0.5 mg/2 mL nebulizer solution Inhale 2 mL (0.5 mg total) in the morning and2 mL (0.5 mg total) before bedtime. Not In System Ref Prov busPIRone (BUSPAR) 15 mg tablet Take 1 tablet (15 mg total) by mouth 3 (three) times a day. Not In System Ref Prov carvediloL (COREG) 3.125 mg tablet Take 1 tablet (3.125 mg total) by mouth in the morning and 1 tablet (3.125 mg total) before bedtime. 02/17/25 05/18/25 Not In System Ref Prov cholecalciferol, vitamin D3, 2,000 units tablet Take 0.5 tablets (1,000 Units total) by mouth in the morning. Not In System Ref Prov cyanocobalamin 1000 MCG tablet Take 1 tablet (1,000 mcg total) by mouth in the morning. 03/02/25 Jacqueline Eduardo, MATERIAL REQUISITIONER-AQUATIC FACILITY MANAGER darbepoetin sylwia-polysorbate (ARANESP) 60 mcg/0.3 mL syringe Inject 0.3 mL (60 mcg total) under theskin once a week Indications: anemia due to kidney failure. 03/07/25 TIMOTEO Roldan DULoxetine (CYMBALTA) 20 mg capsule Take 1 capsule (20 mg total) by mouth in the morning. Not In System Ref Prov ferrous sulfate 325 (65 FE) MG tablet Take 1 tablet (325 mg total) by mouth daily with breakfast. Not In System Ref Prov furosemide (LASIX) 80 mg tablet Take 1 tablet (80 mg total) by mouth daily. 03/02/25 TIMOTEO Roldan gabapentin (NEURONTIN) 100 mg capsule Take 1 capsule (100 mg total) by mouth 3 (three) times a day.Not In System Ref Prov ipratropium-albuteroL (DUONEB) 0.5 mg-3 mg(2.5 mg base)/3 mL nebulizer Inhale 3 mL in the morning and 3 mL before bedtime. 05/13/24 05/13/25 Not In System Ref Prov isosorbide mononitrate (IMDUR) 120 mg 24 hr tablet Take 1 tablet (120 mg total) by mouth daily. 02/19/25 Not In System Ref Prov melatonin (CIRCADIN) 5 mg tablet Take 1 tablet (5 mg total) by mouth nightly as needed (insomina). 03/01/25 TIMOTEO Roldan midodrine (PROAMATINE) 10 mg tablet Take 1 tablet (10 mg total) by mouth every 3 (three) hours as needed (for hypotension give pre and mid dialysis). 02/22/25 Not In System Ref Prov nitroglycerin (NITROSTAT) 0.[address] 1 tablet (0.4 mg total) under the tongue every 5 (five) minutes as needed for chest pain. 02/20/25 Not In System Ref Prov pantoprazole (PROTONIX) 40 mg EC tablet Take 1 tablet (40 mg total) by mouth every morning before breakfast. 12/29/24 Not In System Ref Prov polyethylene glycol (GLYCOLAX) 17 gram packet Take 17 g by mouth in the morning. Not In System Ref Prov ranolazine (RANEXA) 1,000 mg 12 hr tablet Take 1 tablet (1,000 mg total) by mouth in the morning and 1 tablet (1,000 mg total) before bedtime. 12/29/24 Not In System Ref Prov risperiDONE (RisperDAL) 3 mg tablet Take 1 tablet (3 mg total) by mouth nightly. 01/03/25 Not In System Ref Prov rivastigmine (EXELON) 4.6 mg/[address] 1 patch on the skin in the morning. 02/19/25 Not In System Ref Prov sacubitriL-valsartan (ENTRESTO) 24-26 mg tablet Take 0.5 tablets by mouth in the morning and 0.5 tablets before bedtime. 02/17/25 06/17/25 Not In System Ref Prov sodium chloride 0.9 % injection Infuse 10 mL into a venous catheter as needed for line care. 03/01/25 Jacqueline Eduardo APRN-THADDEUS sodium chloride 0.9 % injection Infuse 20 mL into a venous catheter as needed for line care. 03/01/25 Jacqueline Eduardo APRN-THADDEUS sodium chloride 0.9 % injection Infuse 10 mL into a venous catheter every 12 (twelve) hours. 03/01/25 TIMOTEO Roldan spironolactone (ALDACTONE) 25 mg tablet Take 0.5 tablets (12.5 mg total) by mouth in the morning. 03/01/25 TIMOTEO Roldan tamsulosin (FLOMAX) 0.4 mg capsule Take 1 capsule (0.4 mg total) by mouth in the morning. Not In System Ref Prov ticagrelor (BRILINTA) 90 mg tablet Take 1 tablet (90 mg total) by mouth in the morning and 1 tablet(90 mg total) before bedtime. Not In System Ref Prov topiramate (TOPAMAX) 200 MG tablet Take 1 tablet (200 mg total) by mouth in the morning and 1 tablet (200 mg total) before bedtime. Not In System Ref Prov Allergies: Diphenhydramine, Amlodipine, Depakote [divalproex], Felodipine, Metformin, Nitroglycerin, Ropinirole, and Sulfa (sulfonamide antibiotics) Social History: reports that he has never smoked. He has never used smokeless tobacco. Alcohol use questions deferred to the physician. Family History: Family History Family history unknown: Yes Review of Systems: Review of Systems Unable to obtain Physical Exam BP 98/85 Pulse 85 Temp 37.2 ??C (99 ??F) Resp 21 SpO2 92% No intake or output data in the 24 hours ending 03/16/25 5995 Respiratory Source: O2 Device: None (Room air) Admission weight: Physical Exam Cardiovascular: Rate and Rhythm: Tachycardia present. Rhythm irregular. Pulses: Normal pulses. Heart sounds: Normal heart sounds. Pulmonary: Effort: Pulmonary effort is normal. Breath sounds: Normal breath sounds. Abdominal: General: Abdomen is flat. Bowel sounds are normal. Palpations: Abdomen is soft. Musculoskeletal: Cervical back: Normal range of motion. Right lower leg: No edema. Left lower leg: No edema. Skin: Comments: Dry skin bilateral lower extremity Neurological: Mental Status: He is alert. Comments: Patient is confused and does not follow any commands Labs/Imaging Recent Results (from the past 24 hours) Bedside Glucose *Place/Obtain serum glucose if >500 per glucometer. Collection Time: 03/15/25 5:28 PM Result Value Ref Range Bedside Glucose (POC) 175 (H) 65 - 99 mg/dL Troponin I, High Sensitivity Collection Time: 03/15/25 5:39 PM Narrative The following orders were created for panel order Troponin I, High Sensitivity. Procedure Abnormality Status --------- ------ Troponin I, High Sensiti...[[id number]] Abnormal Final result Troponin I, High Sensiti...[[id number]] Abnormal Final result Please view results for these tests on the individual orders. Basic Metabolic Panel Collection Time: 03/15/25 5:39 PM Result Value Ref Range SODIUM 136 134 - 146 mmol/L POTASSIUM 4.0 3.5 - 5.0 mmol/L CHLORIDE 100 98 - 109 mmol/L CARBON DIOXIDE 24 22 - 32 mmol/L ANION GAP 12 5 - 15 mmol/L BLOOD UREA NITROGEN 51 (H) 5 - 27 mg/dL CREATININE 3.13 (H) 0.70 - 1.20 mg/dL GLUCOSE 141 (H) 65 - 99 mg/dL CALCIUM 9.2 8.5 - 10.5 mg/dL EGFR Non-Race Dependent 20 (L) >=60 ml/min/1.73sq.m Protime & INR Collection Time: 03/15/25 5:39 PM Result Value Ref Range PROTIME 24.3 (H) 9.8 - 13.2 sec INR 2.1 (H) 0.9 - 1.2 APTT Collection Time: 03/15/25 5:39 PM Result Value Ref Range APTT 39 (H) 26 - 37 sec CBC auto differential Collection Time: 03/15/25 5:39 PM Result Value Ref Range WBC 9.4 4 - 11 10^9/L RBC Count 2.92 (L) 4.1 - 5.7 10^12/L Hemoglobin 9.4 (L) 13 - 17 g/dL Hematocrit 27.3 (L) 39 - 50 % MCV 93 80 - 100 fL MCH 32.3 27 - 34 pg MCHC 34.6 32 - 36 g/dL RDW 19.7 (H) 11.5 - 15 % Platelet Count 96 (L) 150 - 450 10^9/L MPV 7.9 7 - 12 fL Neutrophils % 85.0 % Lymphocytes % 5.6 % Monocytes % 8.4 % Eosinophils % 0.6 % Basophils % 0.4 % Neutrophils Absolute (A) 8.0 (H) 1.5 - 6.6 10^9/L Lymphocytes Absolute 0.5 (L) 1.0 - 3.5 10^9/L Monocytes Absolute 0.8 0.0 - 0.9 10^9/L Eosinophils Absolute 0.1 0.0 - 0.4 10^9/L Basophils Absolute 0.0 0.0 - 0.2 10^9/L Differential Type AUTOMATED DIFFERENTIAL Troponin I, High Sensitivity 0 Hour Collection Time: 03/15/25 5:39 PM Result Value Ref Range TROPONIN I, HIGH SENSITIVITY 29 (H) <21 ng/L Lactate w/ Reflex Collection Time: 03/15/25 5:39 PM Result Value Ref Range LACTATE W/REFLEX 1.3 0.4 - 2.0 mmol/L Narrative Result did not trigger repeat Lactate, re-order if needed. Magnesium Collection Time: 03/15/25 5:39 PM Result Value Ref Range MAGNESIUM 1.8 1.8 - 2.6 mg/dL Thyroid profile includes TSH FT4 Collection Time: 03/15/25 5:39 PM Result Value Ref Range FREE T4 1.04 0.61 - 1.60 ng/dL TSH 2.61 0.49 - 4.67 uIU/mL Liver panel Collection Time: 03/15/25 5:39 PM Result Value Ref Range TOTAL PROTEIN 7.6 6.0 - 8.0 g/dL ALBUMIN 3.6 3.2 - 5.3 g/dL BILIRUBIN,TOTAL 1.2 0.3 - 1.2 mg/dL ALKALINE PHOSPHATASE 147 (H) 39 - 130 U/L AST 13 <=41 U/L ALT 9 <=40 U/L BILIRUBIN,DIRECT 0.4 <=0.4 mg/dL Lipase Collection Time: 03/15/25 5:39 PM Result Value Ref Range LIPASE 24 17 - 40 U/L Urinalysis Collection Time: 03/15/25 5:51 PM Specimen: Urine Result Value Ref Range COLOR Yellow Yellow TURBIDITY Clear Clear SPECIFIC GRAVITY 1.015 1.003 - 1.035 NITRITE Negative Negative PH,URINE 7.0 5.0 - 8.5 LEUKOCYTE ESTERASE Negative Negative PROTEIN 100 mg/dL (A) Negative KETONES (URINE) Negative Negative UROBILINOGEN 1.0 eu/dL 0.2 eu/dL, 1.0 eu/dL BILIRUBIN (URINE) Negative Negative BLOOD/HGB Moderate (A) Negative R.B.CELLS 19 (H) 0 - 5 SQUAMOUS EPITHELIUM 0 0 - 5 W.B.CELLS 3 0 - 5 GLUCOSE (URINE) Negative Negative, 250 mg/dL Troponin I, High Sensitivity 1 Hour Collection Time: 03/15/25 6:53 PM Result Value Ref Range TROPONIN I, HIGH SENSITIVITY 28 (H) <21 ng/L Narrative Elevations of hs-Troponin may be due to causes other than myocardial ischemia. Recommend serial hs-Troponin testing be performed. For the initial evaluation and management of chest pain patients, refer to the algorithms linked below. Emergency Patient: [email or web address] Inpatient: [email or web address] Troponin I, High Sensitivity Collection Time: 03/16/25 1:35 AM Narrative The following orders were created for panel order Troponin I, High Sensitivity. Procedure Abnormality Status --------- ------ Troponin I, High Sensiti...[[id number]] Abnormal Final result Troponin I, High Sensiti...[[id number]] Abnormal Final result Please view results for these tests on the individual orders. Magnesium Collection Time: 03/16/25 1:35 AM Result Value Ref Range MAGNESIUM 1.9 1.8 - 2.6 mg/dL Troponin I, High Sensitivity 0 Hour Collection Time: 03/16/25 1:35 AM Result Value Ref Range TROPONIN I, HIGH SENSITIVITY 31 (H) <21 ng/L Extra Tubes Collection Time: 03/16/25 1:35 AM Narrative The following orders were created for panel order Extra Tubes. Procedure Abnormality Status --------- ------ Light Blue Top[[id number]] Final result Lavender Top[[id number]] Final result SST TOP[[id number]] Final result Please view results for these tests on the individual orders. Light Blue Top Collection Time: 03/16/25 1:35 AM Result Value Ref Range Extra Tube Auto Resulted Lavender Top Collection Time: 03/16/25 1:35 AM Result Value Ref Range Extra Tube Auto Resulted SST TOP Collection Time: 03/16/25 1:35 AM Result Value Ref Range Extra Tube Auto Resulted Bedside Glucose *Place/Obtain serum glucose if >500 per glucometer. Collection Time: 03/16/25 1:50 AM Result Value Ref Range Bedside Glucose (POC) 200 (H) 65 - 99 mg/dL Troponin I, High Sensitivity 1 Hour Collection Time: 03/16/25 2:40 AM Result Value Ref Range TROPONIN I, HIGH SENSITIVITY 29 (H) <21 ng/L Narrative Elevations of hs-Troponin may be due to causes other than myocardial ischemia. Recommend serial hs-Troponin testing be performed. For the initial evaluation and management of chest pain patients, refer to the algorithms linked below. Emergency Patient: [email or web address] Inpatient: [email or web address] Lactate w/ Reflex Collection Time: 03/16/25 2:40 AM Result Value Ref Range LACTATE W/REFLEX 1.1 0.4 - 2.0 mmol/L Narrative Result did not trigger repeat Lactate, re-order if needed. [place] draw Collection Time: 03/16/25 5:38 AM Narrative The following orders were created for panel order [place] draw. Procedure Abnormality Status --------- ------ Light Blue Top[[id number]] PST TOP[[id number]] Lavender Top[[id number]] Taylor Top On Ice[[id number]] Please view results for these tests on the individual orders. X-ray chest 1 view Result Date: 03/16/2025 History: Right lower lobe infiltrate Technique: A portable single frontal view of the chest was obtained. Comparison: 03/15/25 Findings: A right lower lobe infiltrate is again seen. The heart size remains enlarged but is unchanged. The remaining lung emery are clear. There is a stable tunneled dialysis catheter on the right. Impression: Stable right lower lobe infiltrate. Finalized by Aurelio Saldaña MD on 03/16/2025 1:57 AM X-ray chest 1 view Result Date: 03/15/2025 Portable chest: HISTORY: Cough. Single view the chest was obtained and compared to prior exam 02/24/2025. There is right lower lobe infiltrate. Cardiac contour is enlarged but unchanged. No pneumothorax. Pulmonary vasculature is stable. IMPRESSION: Lower lobe infiltrate. Finalized by Kp Serrano MD on 03/15/2025 5:[address] brain without contrast stroke alert Result Date: 03/15/2025 HISTORY: A 70-year-old male with a history of the altered mental status and new hallucination. There is history of dementia and patient is on dialysis. EXAM/TECHNIQUE: Multidetector spiral CT scan ofbrain is performed. Multiplanar reconstruction images are reformatted. All CT scans at this facility use dose modulation, iterative reconstruction, and/or weight based dosing when appropriate to reduce radiation dose to as low as reasonably achievable. COMPARISON: Comparison is made with CT scan ofbrain of 02/24/2025. FINDINGS: The ventricular system is normal in size and configuration. There ismild degree of cortical atrophy. There is normal differentiation of zelaya and white matters. There is no evidence of intracranial hemorrhage or acute pathology. The cerebellum and brainstem are unremarkable. No mass effect, midline shift of the structures or extra-axial fluid collections are noted. The calvarium is intact. The visualized paranasal sinuses and mastoid air cells are clear. IMPRESSION: * No evidence of intracranial hemorrhage or acute pathology. Finalized by Rakesh Zhu MD on 03/15/2025 5:19 PM Microbiology Results Procedure Component Value Units Date/Time Urine Culture Urine, Indwelling Catheter [[id number]] Collected: 03/15/251750 Specimen: Urine, Indwelling Catheter Updated: 03/15/25 185 Blood culture [[id number]] Collected: 03/15/251738 Specimen: Blood, Venous Updated: 03/15/251742 Blood culture [[id number]] Collected: 03/15/251738 Specimen: Blood, Venous Updated: 03/15/251742 ASSESSMENT Acute on chronic hypoxic respiratory failure secondary to pneumonia (right lower infiltrate on x ray) Metabolic encephalopathy secondary to above Symptomatic hypotension requiring pressor support-most likely secondary to pain medication (received morphine en route)-patient does not have end-organ damage and has normal lactate, less likely shock Heart failure with reduced EF (EF 35% with grade 3 diastolic dysfunction 01/2025) Paroxysmal AFib ESRD on hemodialysis (T/T/S) Hyperglycemia with type 2 diabetes mellitus Mildly elevated troponin-type 2 demand ischemia Recent ESBL E coli UTI COPD not on exacerbation-baseline 2 L oxygen at home History of CAD status post stent History of CABG Anemia of chronic disease PLAN Admit to ICU for close cardiopulmonary monitoring Continue pressor support with Levophed to maintain map above 65, weaned down as tolerated Continue supplemental oxygen to maintain saturation above 90 Start broad-spectrum antibiotics with vancomycin and cefepime with recent hospital admission Send pneumoniae workup (urine Legionella and strep, respiratory pathogen panel, MRSA nasal swab, sputum profile) Send blood culture Consult Nephrology for hemodialysis Medium insulin sliding scale Resume DAPT and Eliquis Ventilation: room air Sedation: None Vasopressors: Levophed Antibiotics: Vancomycin and cefepime DVT prophylaxis: Eliquis GI prophylaxis: Oral Pepcid Lines: Femoral central line Diet: NPO Fluids: None Code Status: Most likely full code This progress note was completed using a voice mailing jogger system. Every effort was made to ensure accuracy. However, inadvertent computerized mailing jogger errors may be present. Ezio Mccabe MD PGY-3 Internal Medicine Resident Adult ICU 03/16/25 5:47 AM Cosigned by Michelle Howell MD at 03/16/2025 1:32 PM EST Associated attestation - Michelle Howell MD - 03/16/2025 1:32 PM EST Attestation signed by 1:30 PM PULMONARY/CRITICAL CARE ATTENDING ATTESTATION I have personally and independently examined the patient. I confirm the note and agree with the assessment and plan as documented by the resident. Please note there may be additional comments below. See updated attestation from progress node dated 03/16. Michelle Howell MD [facility] / Critical Care This note was created with the assistance of a speech-recognition program. Although the intention is to generate a document that actually reflects the content of the visit, no guarantees can be provided that every mistake has been identified and corrected by editing. documented in this encounter Procedure Notes * Summer Rosenbaum RN - 03/24/2025 3:23 PM ESTAssociated Order(s): HEMODIALYSIS INPATIENT Patient completed 2 hours dialysis treatment. One hour into dialysis treatment, the patient reported feeling unwell and experiencing chest pain.Vitals signs remained stable. BS checked and was 133. O2 applied via NC at 2L, patient BP 130/70. Patient placed in minimum. Patient continued to c/o chestpain. Rapid called and a bedside EKG performed. Per rapid response EKG was normal. The patient later reported that he was beginning to feel better. Vitals remained stable throughout. Dr. Sharma notified and ordered 500 ml saline bolus x1 and to shorten patient treatment to 2 hours. See flowsheet for additional information. CVC functioned well at BFR 350. Post BP- 146/86, 80. Post Weight-79.9kg Bed scale shows removal of 0.2 kg Report given to primary RN. * Summer Rosenbaum RN - 03/23/2025 12:34 PM ESTAssociated Order(s): HEMODIALYSIS INPATIENT Dialysis held today per nephrology Dr. Sharma * Adelaide Garza LPN - 03/21/2025 2:30 PM ESTAssociated Order(s): HEMODIALYSIS INPATIENT Patient completed 82 minutes of HD, ending treatment 1 hour and 38 minutes early, MD aware. Patient became increasingly agitated and needed frequent reminders to stay in bed. PVCs were noted on monitor and fluid removal was stopped. Patient would occasionally stare and not respond to his name for a few seconds. Patient began moaning and called out it hurts to breathe and was rinsed back, 2L O2 applied via nasal cannula. Rapid response called. Patient continued to have intermittent PVCs, triggering pacemaker. Blood pressure remained stable. Patient taken back to room. Report given to charge nurse. Post BP 142/87 Unable to obtain post weight * Jelena Arboleda RN - 03/18/2025 11:02 AM ESTAssociated Order(s): HEMODIALYSIS INPATIENT Pt completed 3 hour HD treatment. Pt tolerated well. VSS. Pt was given scheduled dose of midodrine beginning of treatment. Pt's catheter functioned well at 350 bfr. Post BP 100/52 Post weight. 83.1kg Orders for no fluid removal * Adriane Shen RN - 03/16/2025 5:32 PM ESTAssociated Order(s): HEMODIALYSIS INPATIENT Pt dialyzed for 3 hours with a net gain of 0.1kg Pre wt 83.6kg Poist wt 83.7kg Access functioned well at ordered pump speed. Vancomycin was given at last hour. Primary nurse, polly Gatica. documented in this encounter Consult Notes * Delisa Pollard RCP - 03/24/2025 10:09 AM EST Respiratory Therapy Clinical Practice Guidelines Consult Clinical Practice Guidelines Ordered Consult Assessment: Consult, Bronchodilator Bronchodilator Indications: Diseases requiring aerosolized medication, Home regimen Bronchodilator Total: 2 Vital Signs Pulse: 75 Resp: 21 SpO2: 100 % O2 Device: None (Room air) Respiratory Assessment Assessment Type: Subsequent assessment Level of Consciousness: Alert Respiratory Pattern: Regular Chest Assessment: Chest expansion symmetrical Bilateral Breath Sounds: Diminished Patient Active Problem List Diagnosis Has a tremor Atrial fibrillation, chronic ([facility]) Type 2 diabetes mellitus with hyperglycemia ([facility]) Chronic obstructive pulmonary disease ([facility]) Acute systolic (congestive) heart failure ([facility]) End stage renal disease ([facility]) Sepsis with encephalopathy and septic shock, due to unspecified organism ([facility]) Last Chest XRAY: Unavailable Pulmonary History: COPD, Takes duoneb and pulmicort daily. Pt is unable to specify how frequently. States he does not take treatments in the middle of the night. RT Reassessment Due In: prn Bronchodilator Respiratory Rate Level 1: Less than 20 Dyspnea Level 1: No SOB Breath Sounds Level 2: Diminished and/or faint wheezes Respiratory History Level 4: Diagnosis of pulmonary disease such as: Asthma/reactive airway disease; Bronchitis/Emphysema (COPD) ; Cystic Fibrosis ; Severe Laryngitis/Tracheitis/Bronchiectasis ; Microbial infection ; Anesthesia related bronchospasms Oxygen to Keep SpO2 Greater Than Or Equal To 92% Level 1: Room air or baseline O2 ; NIV less than or equal to 40% Peak Flow ([facility] Only) Patients Current Level & Intervention: Home Therapy As at home, reconcile orders with home medsif pulmonary status is stable * Tahir Anderson MD - 03/22/2025 1:27 PM ESTAssociated Order(s): IP CONSULT TO GASTROENTEROLOGY [facility] Teaching GI Service Initial Gastroenterology/Hepatology Consultation Note IDENTIFYING DATA PATIENT: Timmy Muñoz ADMIT DATE: 03/16/2025 TIME OF EVALUATION: 03/22/2025 1:27 PM Reason for Consult: GI bleed Requesting Physician: Deana Albert MD HISTORY OF PRESENT ILLNESS Timmy Muñoz is a 70 y.o. 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 Patient was found to have left-sided deficit, facial droop and slurring of speech. Stroke alert was called. CT brain was negative for acute pathology. Chest x-ray showed right lower lobe infiltrate. Pa tient developed hypotension and became unresponsive, he was started on Levophed and transferred to [facility] for further evaluation. Patient was admitted to ICU for septic shock. Urine culture came back positive for Enterococcus. Patient was started on broad-spectrum antibiotics. Patient was encephalopathic, thought to be secondary to sepsis and hospital-acquired delirium. On 03/22, patient's hemoglobin dropped to 6.8. Baseline hemoglobin is around 9. Fecal occult blood test was positive. GI consulted for GI bleed. On my evaluation, patient was hemodynamically stable. He is alert and oriented. Denies any abdominal pain. GI HISTORY SUMMARY TABLE Last EGD EGD 12/23/24 GIB, anemia Findings:: Esophagus: normal. Stomach: normal Duodenum: Small pale benign appearing polyp in 2nd part. No bleeding stigmata Last colonoscopy Primary GI physician PAST MEDICAL, SURGICAL, FAMILY, and SOCIAL HISTORY Past Medical History: Diagnosis Date Acute myocardial infarction (CMS-HCC) Cardiac pacemaker in situ Chronic systolic heart failure (CMS-HCC) Dependence on renal dialysis Diabetes mellitus without complication (CMS-HCC) End stage renal disease (CMS-HCC) Has a tremor 02/25/2025 admission Hypomagnesemia Hyposmolality syndrome PNA (pneumonia) Sepsis with encephalopathy and septic shock, due to unspecified organism ([facility]) 03/16/2025 Syncope and collapse No past surgical history on file. Family History Family history unknown: Yes Social History: Social History Tobacco Use Smoking status: Never Smokeless tobacco: Never Tobacco comments: 02/25 [facility] - [facility], unable to reach family. Per [place] pt does not have history of smoking on file with them Vaping Use Vaping status: Unknown Substance Use Topics Alcohol use: Defer Comment: 02/25 [facility] - [facility], unable to reach family. MEDICATIONS Allergies: Allergies Allergen Reactions Diphenhydramine Anxiety, Hallucinations and Other (See Comments) Confusion Amlodipine Depakote [Divalproex] Felodipine Metformin Nitroglycerin Hives Patient states I get hives , breakout in rashes Ropinirole Sulfa (Sulfonamide Antibiotics) Home Medications: Prior to Admission medications Medication Sig Start Date End Date Taking? Authorizing Provider acetaminophen (TYLENOL EXTRA STRENGTH) 500 mg tablet Take 2 tablets (1,000 mg total) by mouth every12 (twelve) hours as needed for pain. Yes Not In System Ref Prov albuterol (PROVENTIL HFA;VENTOLIN HFA) 90 mcg/actuation inhaler Inhale 2 puffs every 6 (six) hours as needed for wheezing or shortness of breath. Yes Not In System Ref Prov albuterol (PROVENTIL,VENTOLIN) 2.5 mg /3 mL (0.083 %) nebulizer solution Inhale 3 mL (2.5 mg total)every 6 (six) hours as needed for wheezing or shortness of breath. Yes Not In System Ref Prov albuterol-budesonide 90-80 mcg/actuation HFA aerosol inhaler Inhale 2 puffs every 6 (six) hours as needed (wheezing, SOB). Yes Not In System Ref Prov allopurinoL 200 mg tablet Take 200 mg by mouth in the morning. Yes Not In System Ref Prov amiodarone (PACERONE) 200 mg tablet Take 1 tablet (200 mg total) by mouth in the morning. 01/11/25 Yes Not In System Ref Prov ammonium lactate (AMLACTIN) 12 % cream Apply 1 Application topically in the morning and 1 Application before bedtime. Yes Not In System Ref Prov apixaban (ELIQUIS) 5 mg tablet Take 1 tablet (5 mg total) by mouth in the morning and 1 tablet (5 mg total) before bedtime. 04/08/24 Yes Not In System Ref Prov ARIPiprazole (ABILIFY) 10 mg tablet Take 1 tablet (10 mg total) by mouth in the morning. Indications: manic-depression. Yes Not In System Ref Prov atorvastatin (LIPITOR) 40 mg tablet Take 1 tablet (40 mg total) by mouth in the morning. Indications: excessive fat in the blood. Yes Not In System Ref Prov budesonide (PULMICORT) 0.5 mg/2 mL nebulizer solution Inhale 2 mL (0.5 mg total) in the morning and2 mL (0.5 mg total) before bedtime. Yes Not In System Ref Prov busPIRone (BUSPAR) 15 mg tablet Take 1 tablet (15 mg total) by mouth 3 (three) times a day. Yes NotIn System Ref Prov carvediloL (COREG) 3.125 mg tablet Take 1 tablet (3.125 mg total) by mouth in the morning and 1 tablet (3.125 mg total) before bedtime. 02/17/25 05/18/25 Yes Not In System Ref Prov cholecalciferol (VITAMIN D3) 1,000 units tablet Take 2 tablets (2,000 Units total) by mouth in the morning. Yes Not In System Ref Prov cyanocobalamin 1000 MCG tablet Take 1 tablet (1,000 mcg total) by mouth in the morning. 03/02/25 Yes TIMOTEO Roldan darbepoetin sylwia-polysorbate (ARANESP) 60 mcg/0.3 mL syringe Inject 0.3 mL (60 mcg total) under theskin once a week Indications: anemia due to kidney failure. Patient taking differently: Inject 0.3 mL (60 mcg total) under the skin once a week Indications: anemia due to kidney failure. Mondays03/07/25 Yes TIMOTEO Roldan DULoxetine (CYMBALTA) 20 mg capsule Take 1 capsule (20 mg total) by mouth in the morning. Yes Not In System Ref Prov ferrous sulfate 325 (65 FE) MG tablet Take 1 tablet (325 mg total) by mouth daily with breakfast. Yes Not In System Ref Prov furosemide (LASIX) 80 mg tablet Take 1 tablet (80 mg total) by mouth daily. 03/02/25 Yes TIMOTEO Roldan gabapentin (NEURONTIN) 100 mg capsule Take 1 capsule (100 mg total) by mouth 3 (three) times a day.Yes Not In System Ref Prov ipratropium-albuteroL (DUONEB) 0.5 mg-3 mg(2.5 mg base)/3 mL nebulizer Inhale 3 mL in the morning and 3 mL before bedtime. 05/13/24 05/13/25 Yes Not In System Ref Prov isosorbide mononitrate (IMDUR) 120 mg 24 hr tablet Take 1 tablet (120 mg total) by mouth daily. 02/19/25 Yes Not In System Ref Prov melatonin (CIRCADIN) 5 mg tablet Take 1 tablet (5 mg total) by mouth nightly as needed (insomina). 03/01/25 Yes TIMOTEO Roldan midodrine (PROAMATINE) 10 mg tablet Take 1 tablet (10 mg total) by mouth every 3 (three) hours as needed (for hypotension give pre and mid dialysis). 02/22/25 Yes Not In System Ref Prov nitroglycerin (NITROSTAT) 0.[address] 1 tablet (0.4 mg total) under the tongue every 5 (five) minutes as needed for chest pain. 02/20/25 Yes Not In System Ref Prov pantoprazole (PROTONIX) 40 mg EC tablet Take 1 tablet (40 mg total) by mouth every morning before breakfast. 12/29/24 Yes Not In System Ref Prov polyethylene glycol (GLYCOLAX) 17 gram packet Take 17 g by mouth in the morning. Yes Not In System Ref Prov ranolazine (RANEXA) 1,000 mg 12 hr tablet Take 1 tablet (1,000 mg total) by mouth in the morning and 1 tablet (1,000 mg total) before bedtime. 12/29/24 Yes Not In System Ref Prov risperiDONE (RisperDAL) 3 mg tablet Take 1 tablet (3 mg total) by mouth nightly. 01/03/25 Yes Not InSystem Ref Prov rivastigmine (EXELON) 4.6 mg/[address] 1 patch on the skin in the morning. 02/19/25 Yes Not In System Ref Prov sacubitriL-valsartan (ENTRESTO) 24-26 mg tablet Take 0.5 tablets by mouth in the morning and 0.5 tablets before bedtime. 02/17/25 06/17/25 Yes Not In System Ref Prov sevelamer (RENVELA) 800 mg tablet Take 1 tablet (800 mg total) by mouth 3 (three) times a day. Yes Not In System Ref Prov sodium chloride 0.9 % injection Infuse 10 mL into a venous catheter as needed for line care. Patient taking differently: Infuse 10 mL into a venous catheter every 12 (twelve) hours. Line care 03/01/25 Yes TIMOTEO Roldan spironolactone (ALDACTONE) 25 mg tablet Take 0.5 tablets (12.5 mg total) by mouth in the morning. 03/01/25 Yes TIMOTEO Roldan tamsulosin (FLOMAX) 0.4 mg capsule Take 1 capsule (0.4 mg total) by mouth in the morning. Yes Not In System Ref Prov ticagrelor (BRILINTA) 90 mg tablet Take 1 tablet (90 mg total) by mouth in the morning and 1 tablet(90 mg total) before bedtime. Yes Not In System Ref Prov topiramate (TOPAMAX) 200 MG tablet Take 1 tablet (200 mg total) by mouth in the morning and 1 tablet (200 mg total) before bedtime. Yes Not In System Ref Prov sodium chloride 0.9 % injection Infuse 20 mL into a venous catheter as needed for line care. Patient not taking: Reported on 03/16/2025 03/01/25 TIMOTEO Roldan sodium chloride 0.9 % injection Infuse 10 mL into a venous catheter every 12 (twelve) hours. Patient not taking: Reported on 03/16/2025 03/01/25 TIMOTEO Roldan Current Medications: amiodarone, 200 mg, oral, Daily ARIPiprazole, 10 mg, oral, Daily aspirin, 81 mg, nasogastric, Daily budesonide, 0.5 mg, nebulization, Q12H busPIRone, 15 mg, nasogastric, TID cholecalciferol (vitamin D3), 1,000 Units, nasogastric, Daily cyanocobalamin, 1,000 mcg, nasogastric, Daily DAPTOmycin (CUBICIN) IV, 500 mg, intravenous, Q48H darbepoetin sylwia (ARANESP) injection, 60 mcg, subcutaneous, Weekly DULoxetine, 20 mg, oral, Daily ferrous sulfate, 325 mg, nasogastric, Daily with breakfast gabapentin, 100 mg, oral, TID ipratropium-albuteroL, 3 mL, nebulization, Q6H [COMPLETED] meropenem, 500 mg, intravenous, Once FOLLOWED BY meropenem, 500 mg, intravenous, Q24H metoprolol succinate XL, 12.5 mg, oral, BID pantoprazole, 40 mg, intravenous, Q12H risperiDONE, 3 mg, oral, Nightly rivastigmine, 1 patch, transdermal, Daily sodium chloride, 10 mL, intravenous, Q96H sodium chloride, 10 mL, intravenous, Q96H sodium chloride, 30 mL, intravenous, Q8H AND sodium chloride, 10 mL, intravenous, PRN AND sodium chloride, 20 mL, intravenous, PRN sodium citrate, 1.6 mL, intravenous, Q96H sodium citrate, 1.6 mL, intravenous, Q96H tamsulosin, 0.4 mg, oral, Daily topiramate, 200 mg, nasogastric, BID PRNs: acetaminophen, 650 mg, Q6H PRN calcium gluconate, 1,000 mg, PRN Or calcium gluconate, 2,000 mg, PRN ipratropium-albuteroL, 3 mL, Q6H PRN magnesium sulfate, 2,000 mg, PRN midodrine, 5 mg, PRN sodium chloride, 10 mL, PRN And sodium chloride, 20 mL, PRN sodium chloride, 10 mL, PRN sodium chloride, 10 mL, PRN sodium chloride, 10 mL, PRN sodium chloride, 10 mL, PRN sodium chloride 0.9 %, 20 mL/hr, Continuous PRN sodium citrate, 1.6 mL, PRN sodium citrate, 1.6 mL, PRN sodium phosphate IV, 20 mmol, PRN Or sodium phosphate IV - central line, 20 mmol, PRN REVIEW OF SYSTEMS See HPI, otherwise ROS negative as below CONSTITUTIONAL: negative HEENT: negative RESPIRATORY: negative CARDIOVASCULAR: negative GASTROINTESTINAL: as in HPI GENITOURINARY: negative INTEGUMENT/BREAST: negative HEMATOLOGIC/LYMPHATIC: negative ALLERGIC/IMMUNOLOGIC: negative ENDOCRINE: negative MUSCULOSKELETAL: negative NEUROLOGICAL: negative BEHAVIOR/PSYCH: negative OBJECTIVE DATA Vitals: BP 135/68 Pulse 74 Temp 36.4 ??C (97.6 ??F) (Oral) Resp 25 Ht 170.2 cm (5' 7 ) Wt 82 kg (180 lb 12.4 oz) SpO2 100% BMI 28.31 kg/m?? GEN: alert and oriented x3, NAD HEENT: EOMI, PERRL, oropharynx non-erythematous without exudate, no oral lesions LYMPH: no lad CV: RRR, no murmur, rub, gallop, no edema PULM: CTAB ABD: soft, non-tender, non-distended, +BS NEURO: no focal deficits, moves all 4 extremities spontaneously SKIN: no rashes PSYCH: normal affect LABS AND IMAGING CBC: Lab Results Component Value Date WBC 4.3 03/22/2025 HGB 6.8 (LL) 03/22/2025 HCT 20.1 (L) 03/22/2025 MCV 94 03/22/2025 RDW 18.8 (H) 03/22/2025 RDW 13.9 07/12/2012 PLT 190 03/22/2025 CMP: Lab Results Component Value Date K 4.1 03/22/2025 CL 110 (H) 03/22/2025 CL 108 07/12/2012 CO2 26 03/22/2025 BUN 37 (H) 03/22/2025 GLU 122 (H) 03/22/2025 GLU 180 (H) 03/17/2025 GLU 161 (H) 07/12/2012 Lipase: No components found for: LIP Amylase: No results found for: LELAND Ionized Calcium: No components found for: IONCA Magnesium: Lab Results Component Value Date MG 2.0 03/22/2025 Phosphorus: No components found for: PO4 PT/INR: Lab Results Component Value Date INR 2.1 (H) 03/15/2025 INR 0.9 07/12/2012 TSH: Lab Results Component Value Date TSH 2.61 03/15/2025 VITAMIN B12: No components found for: B12 FOLATE: Lab Results Component Value Date FOLATE 17.6 03/22/2025 IRON: No results found for: FE Iron Saturation: No components found for: PERCENTFESAT TIBC: Lab Results Component Value Date TIBC 162 (L) 03/22/2025 FERRITIN: Lab Results Component Value Date FERRITIN 849 (H) 03/22/2025 MICRO Blood Culture: No components found for: CBLOOD , CFUNGUSBL Stool Culture: No components found for: CSTOOL IMAGING: ASSESSMENT AND PLAN Timmy Muñoz is a 70 y.o. 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 Patient was found to have septic shock likely secondary to Enterococcus UTI. On 03/22, patient's hemoglobin dropped to 6.8. GI consulted for GI bleed. Assessment: Acute on chronic anemia, no overt GI bleeding On 03/22, patient's hemoglobin dropped to 6.8. Baseline hemoglobin is around 9. No overt GI bleeding noted. Patient had a brown bowel movement earlier on 03/22 Patient has acute on chronic anemia likely multifactorial in the setting of sepsis, anemia of chronic disease. Septic shock on admission, resolved Right lower lobe bacterial pneumonia Oropharyngeal dysphagia, on level 4 diet ESRD on hemodialysis Chronic heart failure with reduced ejection fraction Paroxysmal atrial fibrillation status post Maze procedure, on Eliquis Last dose of Eliquis 12/8 p.m. CAD s/p CABG X 4 Brilinta has been on hold this admission due to anemia and history of GI bleeding Sick sinus syndrome s/p pacemaker Type 2 diabetes mellitus BPH Oropharyngeal dysphagia Plan: Continue to monitor hemoglobin, transfuse as clinically indicated. Monitor for overt GI bleeding. Continue Protonix 40 mg twice daily. Okay to continue aspirin Okay to continue anticoagulation as long as no overt GI bleed. No urgent endoscopic intervention warranted in the setting of sepsis and no overt GI bleeding. We can consider an arrange for outpatient EGD and colonoscopy workup upper resolution of the current issues. If patient's hemoglobin continues to drop or if he develops any overt GI bleeding, we will considerendoscopy. GI will continue to follow. This consult will be discussed with attending physician Dr. Garrison. If you have any questions please feel free to contact the GI Service. Thank you for allowing us to participate in the care of Timmy Muñoz. [place] [facility] 7 am to 5pm weekdays in house 5 pm to 7 am or weekends please contact the steam plant operator to page the fellow information assurance analyst Cosigned by Gordon Garrison MD at 03/23/2025 3:01 PM EST Associated attestation - Gordon Garrison MD - 03/23/2025 3:01 PM EST Seen and discussed with fellow, agree with history/physical exam/plan. * Siddhartha Vazquez MD - 03/21/2025 5:14 PM ESTAssociated Order(s): Consult Cardiology Images from the original note were not included. Consult Cardiology Consult performed by: Siddhartha Vazquez MD Consult ordered by: Deana Albert MD [facility] I, SIDDHARTHA VAZQUEZ MD, personally performed the face to face diagnostic evaluation on this patient.My findings are as follows: . History of Present Illness: 70 y.o. male with a PMHx of chronic heart failure with severely reducedEF, severe MVCAD s/p CABG x 4 in 2019 at [facility], paroxysmal atrial fibrillation s/p MAZE and SHIRLENE ligation, SSS s/p [facility]-PPM in 09/2016, T2DM, severe pulmonary hypertension, HTN, HLD, AMAN, who was recently started on IHD due to severe NATANAEL who was admitted to the ICU due to septic shock. Cardiology was consulted due to an episode of chest pain and PVCs noted during dialysis. The patient denies any chest pain, orthopnea, shortness of breath, , or any other sx at this time. He responds to my questions by saying no, do you? . He is noted to have PVCs/NSVT on telemetry. He refused my physical exam. Troponins checked earlier today have been negative. He was recently diagnosed with NATANAEL from ischemic ATN due to severe anemia and obstructive uropathy in 12/2024 and is now on HD MWF. He also had recent admission for syncopal event/PEA arrest while ondialysis and was noted to have hypokalemia at the time in 01/2025 with 1 round of CPR and ROSC. TTE in 01/2025 demonstrated LVEF 35%, grade 3 diastolic dysfunction, reduced RV function, mild to moderate MR, moderate TR. Previous TTE had been reported at 15-20% in 12/2024. Patient does not have an ICD. Allergies: Allergies Allergen Reactions Diphenhydramine Anxiety, Hallucinations and Other (See Comments) Confusion Amlodipine Depakote [Divalproex] Felodipine Metformin Nitroglycerin Hives Patient states I get hives , breakout in rash Ropinirole Sulfa (Sulfonamide Antibiotics) [facility] Meds: Current Facility-Administered Medications Medication Dose Route Frequency Provider Last Rate Last Admin acetaminophen (TYLENOL) tablet 650 mg 650 mg oral Q6H PRN Elvira Atkins MD 650 mg at 03/21/25 0822 amiodarone (PACERONE) tablet 200 mg 200 mg oral Daily Landy Ness MD 200 mg at 03/21/25 0822 apixaban (ELIQUIS) tablet 5 mg 5 mg oral BID Farheen Abel MD 5 mg at 03/21/25 0823 ARIPiprazole (ABILIFY) tablet 10 mg 10 mg oral Daily Ezio Mccabe MD 10 mg at 03/21/25 0822 aspirin chewable tablet 81 mg 81 mg nasogastric Daily Magdiel Greene MD 81 mg at 03/21/25 0822 budesonide (PULMICORT) nebulizer solution 0.5 mg 0.5 mg nebulization Q12H Celina Mckeon DO 0.5 mg at 03/21/25 0916 busPIRone (BUSPAR) tablet 15 mg 15 mg nasogastric TID Magdiel Greene MD 15 mg at 03/21/25 1600 calcium gluconate IVPB 1000 mg/50 mL (20 mg/mL premix) 1,000 mg intravenous PRN Ezio Mccabe MD Or calcium gluconate IVPB 2000 mg/100 mL (20 mg/mL premix) 2,000 mg intravenous PRN Ezio Mccabe MD cholecalciferol (vitamin D3) tablet 1,000 Units 1,000 Units nasogastric Daily Magdiel Greene MD 1,000 Units at 03/21/25 0822 cyanocobalamin tablet 1,000 mcg 1,000 mcg nasogastric Daily Magdiel Greene MD 1,000 mcg at 03/21/25 0823 DAPTOmycin (CUBICIN) 500 mg in sodium chloride 0.9 % 50 mL IVPB 500 mg intravenous Q48H Landy Ness MD Stopped at 03/21/25 1623 darbepoetin sylwia-polysorbate (ARANESP) injection 60 mcg 60 mcg subcutaneous Weekly Maritza Sharma MD 60 mcg at 03/16/25 1748 DULoxetine (CYMBALTA) DR capsule 20 mg 20 mg oral Daily Ezio Mccabe MD 20 mg at 03/21/25 0822 ferrous sulfate tablet 325 mg 325 mg nasogastric Daily with breakfast Magdiel Greene MD 325 mg at 03/21/25 0822 gabapentin (NEURONTIN) capsule 100 mg 100 mg oral TID Ezio Mccabe MD 100 mg at 03/21/25 1600 ipratropium-albuteroL (DUONEB) 0.5 mg-3 mg(2.5 mg base)/3 mL nebulizer solution 3 mL 3 mL nebulization Q6H PRN Sumit Osborne MD ipratropium-albuteroL (DUONEB) 0.5 mg-3 mg(2.5 mg base)/3 mL nebulizer solution 3 mL 3 mL nebulization Q6H Celina Mckeon DO 3 mL at 03/21/25 1444 magnesium sulfate IVPB 2000 mg/50 mL in iso-osmotic water (40 mg/mL premix) 2,000 mg intravenous PRN Ezio Mccabe MD Stopped at 03/17/25 0652 meropenem (MERREM) 500 mg in sodium chloride 0.9 % 50 mL IVPB W/ADAPTER 500 mg intravenous Q24H Trena Sanford APRN-AQUATIC FACILITY MANAGER 16.7 mL/hr at 03/21/25 1559 500 mg at 03/21/25 1559 midodrine (PROAMATINE) tablet 10 mg 10 mg oral TID Farheen Abel MD 10 mg at 03/21/25 0606 pantoprazole (PROTONIX) EC tablet 40 mg 40 mg oral QAM AC Ezio Mccabe MD 40 mg at 03/21/25 0606 risperiDONE (RisperDAL) tablet 3 mg 3 mg oral Nightly Farheen Abel MD 3 mg at 03/20/252043 rivastigmine (EXELON) 4.6 mg/24 hour 1 patch 1 patch transdermal Daily Magdiel Flower Greene MD 1 patch at 03/21/25 0824 sodium chloride 0.9 % flush 30 mL 30 mL intravenous Q8H Ezio Mccabe MD 30 mL at 03/21/25 1601 And sodium chloride 0.9 % flush 10 mL 10 mL intravenous PRN Ezio Mccabe MD And sodium chloride 0.9 % flush 20 mL 20 mL intravenous PRN Ezio Mccabe MD sodium chloride 0.9 % flush 10 mL 10 mL intravenous Q96H Maritza Sharma MD sodium chloride 0.9 % flush 10 mL 10 mL intravenous Q96H Maritza Sharma MD 10 mL at 03/20/25 1436 sodium chloride 0.9 % flush 10 mL 10 mL intravenous PRN Maritza Sharma MD 10 mL at 03/21/25 1238 sodium chloride 0.9 % flush 10 mL 10 mL intravenous PRN Maritza Sharma MD 10 mL at 03/18/25 1057 sodium chloride 0.9 % flush 10 mL 10 mL intravenous PRN Maritza Sharma MD 10 mL at 03/21/25 1238 sodium chloride 0.9 % flush 10 mL 10 mL intravenous PRN Maritza Sharma MD 10 mL at 03/18/25 1057 sodium citrate 4 % (3 mL) flush 1.6 mL 1.6 mL intravenous Q96H Maritza Sharma MD sodium citrate 4 % (3 mL) flush 1.6 mL 1.6 mL intravenous Q96H Maritza Sharma MD sodium citrate 4 % (3 mL) flush 1.6 mL 1.6 mL intravenous PRN Maritza Sharma MD 1.6 mL at 03/21/25 1400 sodium citrate 4 % (3 mL) flush 1.6 mL 1.6 mL intravenous PRN Maritza Sharma MD 1.6 mL at 03/21/25 1400 sodium phosphate 20 mmol in sodium chloride 0.9 % 250 mL IVPB 20 mmol intravenous PRN Ezio Mccabe MD Or sodium phosphate 20 mmol in sodium chloride 0.9 % 100 mL IVPB 20 mmol intravenous PRN Ezio Mccabe MD tamsulosin (FLOMAX) 24 hr capsule 0.4 mg 0.4 mg oral Daily Landy Ness MD 0.4 mg at 03/21/25 08 topiramate (TOPAMAX) tablet 200 mg 200 mg nasogastric BID Magdiel Greene MD 200 mg at 03/21/25 0822 Laboratory CBC: Results from last 7 days Lab Units 03/21/25 0642 03/19/25 0649 03/18/25 0503 03/18/25 0203 WBC 10^9/L 4.7 4.3 -- 4.6 HEMOGLOBIN g/dL 7.4* 7.9* 7.4* 7.2* HEMATOCRIT % 21.8* 23.8* -- 21.6* MCV fL 94 94 -- 94 PLATELETS 10^9/L 165 118* -- 109* BMP: Results from last 7 days Lab Units 03/21/25 0642 03/19/25 0649 03/18/25 0203 03/17/25 0627 03/17/25 0223 03/16/25 1132 03/16/25 0135 SODIUM mmol/L 146 140 135 -- 139 < > -- POTASSIUM mmol/L 4.2 3.9 3.9 < > 3.5 < > -- CHLORIDE mmol/L 111* 104 101 -- 105 < > -- CO2 mmol/L 24 27 23 -- 24 < > -- BUN mg/dL 46* 34* 52* -- 34* < > -- CREATININE mg/dL 2.39* 2.23* 3.33* -- 2.28* < > -- CALCIUM mg/dL 9.3 9.0 8.8 -- 8.3* < > -- MAGNESIUM mg/dL 2.1 -- -- -- 1.7* -- 1.9 < > = values in this interval not displayed. Troponin I Physical Exam Vital Signs: BP 136/75 Pulse 85 Temp 36.4 ??C (97.6 ??F) (Oral) Resp 18 Wt 86.3 kg (190 lb 4.1 oz) SpO2 95% BMI 29.80 kg/m?? 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 Add Toprol 12.5 mg daily for GDMT and PVC/NSVT suppression. Interrogate pacemaker device to assess NSVT/PVC burden. Continue amiodarone 200 mg daily, eliquis 5 mg BID. Troponins negative and patient denies chest pain. Do not suspect ACS at this time. SIDDHARTHA VAZQUEZ MD This note was completed using a voice mailing jogger system. Every effort was made to ensure accuracy. However, inadvertent computerized mailing jogger errors may be present. * Aurelio Villanueva RCP - 03/19/2025 2:13 PM EST Respiratory ConsultRespiratory Therapy Clinical Practice Guidelines Consult Clinical Practice Guidelines Ordered Consult Assessment: Consult, Oxygen, Bronchodilator Oxygen Indications: Home oxygen use Bronchodilator Indications: Home regimen, Diseases requiring aerosolized medication Bronchodilator Total: 2 Vital Signs BP: 102/57 Pulse: 95 Heart Rate Source: Pulse Ox, Monitor Resp: 24 SpO2: 100 % O2 Device: None (Room air) Respiratory Assessment Assessment Type: Post-treatment Level of Consciousness: Responds to Voice, Alert Respiratory Pattern: Tachypneic Chest Assessment: Chest expansion symmetrical Bilateral Breath Sounds: Diminished, Clear R Breath Sounds: Diminished, Clear L Breath Sounds: Diminished, Clear Patient Active Problem List Diagnosis Has a tremor Atrial fibrillation, chronic ([facility]) Type 2 diabetes mellitus with hyperglycemia ([facility]) Chronic obstructive pulmonary disease ([facility]) Acute systolic (congestive) heart failure ([facility]) End stage renal disease ([facility]) Sepsis with encephalopathy and septic shock, due to unspecified organism ([facility]) Last Chest XRAY: Reviewed, 03/19 Pulmonary History: Home O2?, Alb mdi, Alb/Budesonide,Duoneb AM and PM RT Reassessment Due In: 24 hours Bronchodilator Respiratory Rate Level 2: Less than 20 Dyspnea Level 2: Periodic SOB Breath Sounds Level 2: Diminished and/or faint wheezes Respiratory History Level 4: Diagnosis of pulmonary disease such as: Asthma/reactive airway disease; Bronchitis/Emphysema (COPD) ; Cystic Fibrosis ; Severe Laryngitis/Tracheitis/Bronchiectasis ; Microbial infection ; Anesthesia related bronchospasms Oxygen to Keep SpO2 Greater Than Or Equal To 92% Level 1: Room air or baseline O2 ; NIV less than or equal to 40% Peak Flow ([facility] Only) Home Therapy: Not Applicable and Level 1: Greater than 80% predicted or personal best Patients Current Level & Intervention: 2 Three times daily and Q4 PRN for wheezing * Christa Lozano MD - 03/19/2025 1:55 PM ESTAssociated Order(s): IP CONSULT TO PALLIATIVE MEDICINE Images from the original note were not included. [facility] CONS[facility] Date of Service: 03/19/2025 Patient Name: Timmy Muñoz : 1955 Reason for Consultation: Goals of care discussions CC: Sepsis Subjective SUBJECTIVE HPI: 70-year-old male with a past medical history significant for end-stage renal disease (ESRD) onhemodialysis (Friday, , Saturday schedule) since 12/23/2024 at [facility] under the care of Dr. Matt Sharma, chronic systolic heart failure with reduced ejection fraction (HFrEF) of 35%, paroxysmal atrial fibrillation on Eliquis, type 2 diabetes mellitus, and COPD on 2 liters of oxygen at baseline presented to the emergency department with altered mental status on 03/16/2025. The patient was initially at [facility] where a stroke alert was called for left-sided deficit, facial droop, and slurring of speech. CT of the brain was negative for acute pathology. A chest x-ray revealed a right lower lobe infiltrate, and the altered mental status was attributed to an infectious etiology. The patient was started on vancomycin and cefepime. While being transferred to [facility], he developed hypotension, unresponsiveness, and fever, prompting his return to the [facility]. There, a right femoral central line was placed, and he was started on vasopressor support with Levophed. He was subsequently transferred to the ICU at this facility for septic shock. Upon arrival in the ICU, he was noted to be alert but confused and not following commands, requiring Levophed. Over the course of his hospitalization his mental status improved. Palliative Care was consulted for advance care planning. Past Medical History: Diagnosis Date Acute myocardial infarction ([facility]) Cardiac pacemaker in situ Chronic systolic heart failure ([facility]) Dependence on renal dialysis Diabetes mellitus without complication ([facility]) End stage renal disease ([facility]) Has a tremor 02/25/2025 admission Hypomagnesemia Hyposmolality syndrome PNA (pneumonia) Sepsis with encephalopathy and septic shock, due to unspecified organism ([facility]) 03/16/2025 Syncope and collapse No past surgical history on file. Allergies: Diphenhydramine, Amlodipine, Depakote [divalproex], Felodipine, Metformin, Nitroglycerin, Ropinirole, and Sulfa (sulfonamide antibiotics) Family History Family history unknown: Yes Social History Tobacco Use Smoking status: Never Smokeless tobacco: Never Tobacco comments: 02/25 [facility] - AMS, unable to reach family. Per [place] pt does not have history of smoking on file with them Vaping Use Vaping status: Unknown Substance Use Topics Alcohol use: Defer Comment: 02/25 [facility] - AMS, unable to reach family. Objective OBJECTIVE BP 102/57 Pulse 95 Temp 36.7 ??C (98 ??F) (Oral) Resp 20 Wt 84.1 kg (185 lb 6.5 oz) SpO2 98% BMI 29.04 kg/m?? Intake/Output Summary (Last 24 hours) at 03/19/2025 1356 Last data filed at 03/19/2025 1343 Gross per 24 hour Intake 48.27 ml Output 485 ml Net -436.73 ml EXAM: Patient was reclining in bed, eating pudding. PALLIATIVE CARE DISCUSSION Talked to patient's brother on the phone. Gave him updates about patient's condition. We discussed how his brother would be the next of kin however they have not discussed living will or any end of life care wishes. I told him that when patient is feeling better and is able to have complex discussions asking aboutcode status and having paperwork completed would be very helpful for the future. We will continue to follow the patient and assist in the conversation when patient's cognition improves. ASSESSMENT Septic shock Aspiration pneumonia Metabolic encephalopathy Heart failure with reduced ejection fraction ESRD on dialysis Encounter for Palliative Care Code Status: Full code Next of Kin: Brother ACP forms: Not on file PLAN -patient remains full code. Continue current management. -palliative Care will arrange advanced care planning discussions once patient's cognition improves. Thank you for the opportunity to participate in the care of this patient. The palliative care team will continue to follow. Please contact us if we can be of additional assistance [phone]. In preparation for, or response to, today's visit I Reviewed today's CBC/BMP, Reviewed recent CXR, Reviewed recent progress notes, Reviewed consult notes, and Obtained independent hx from a family member Electronically signed by: [place] [id number] * Trena Sanford APRN-AQUATIC FACILITY MANAGER - 03/19/2025 11:49 AM ESTAssociated Order(s): IP CONSULT TO INFECTIOUS DISEASES Images from the original note were not included. [facility] - Initial Consult Note Timmy Muñoz Admit date/time 03/16/2025 5:16 AM Today's Date and Time: 03/19/2025, 11:49 AM Impression: Septic shock Fever Aspiration pneumonia Right basilar infiltrate Enterococcus UTI History of ESBL E coli UTI February 2025 Altered mental status COPD CAD status post stenting and CABG Ischemic cardiomyopathy Heart failure with reduced ejection fraction AFib on Eliquis Hypertension End-stage renal disease on hemodialysis Type 2 diabetes mellitus Anemia Thrombocytopenia Prolonged QTC Recommendations Chest x-ray 03/19/2025: IMPRESSION: Airspace infiltrate at the right lung base appears more extensive than on the previous study suggestive of pneumonia. ECG 03/16/2025: Prolonged QTC of 512 Cultures Blood cultures x2 03/19/2025 in process Blood cultures x2 03/16/2025 in process MRSA PCR 03/16/2025 finalized negative Respiratory pathogen panel 03/16/2025 final negative Urine culture 03/15/2025 positive for Enterococcus Blood cultures x2 03/15/2025 in process Previous admission Urine culture 02/24/2025 positive for ESBL E coli. Antibiotics Continue daptomycin Add meropenem No statins while on daptomycin Check and monitor CK level Nephrology on consult Follow-up WBC platelets creatinine LFT ID clinic in 2-3 weeks Supportive care Reason for consultation: Aspiration pneumonia, Enterococcus UTI Chief complaint Aspiration pneumonia, Enterococcus UTI History of Present Illness: Timmy Muñoz is a 70 y.o.-year-old male who was initially admitted on 03/16/2025. Of note, he wasrecently discharged on 03/01/2025 for he was admitted for ESBL E coli UTI. He was treated with IV Invanz. He present to [facility] via EMS due to altered mental status. Alert was called and imaging was negative for acute stroke. Showed right lower lobe infiltrate. He was transferred to hospital 03/16/2025. And oral he became hypotensive, unresponsive and febrile. He was started on Levophed. He was started on vancomycin and cefepime. I have personally reviewed the past medical history, past surgical history, medications, social history, and family history, and I have updated the database accordingly. Past Medical History: Past Medical History: Diagnosis Date Acute myocardial infarction ([facility]) Cardiac pacemaker in situ Chronic systolic heart failure ([facility]) Dependence on renal dialysis Diabetes mellitus without complication ([facility] End stage renal disease ([facility]) Has a tremor 02/25/2025 admission Hypomagnesemia Hyposmolality syndrome PNA (pneumonia) Sepsis with encephalopathy and septic shock, due to unspecified organism ([facility]) 03/16/2025 Syncope and collapse Past Surgical History: No past surgical history on file. Medications: amiodarone, 200 mg, oral, Daily apixaban, 5 mg, oral, BID ARIPiprazole, 10 mg, oral, Daily aspirin, 81 mg, nasogastric, Daily budesonide, 0.5 mg, nebulization, Q12H busPIRone, 15 mg, nasogastric, TID cholecalciferol (vitamin D3), 1,000 Units, nasogastric, Daily cyanocobalamin, 1,000 mcg, nasogastric, Daily DAPTOmycin (CUBICIN) IV, 500 mg, intravenous, Q48H darbepoetin sylwia (ARANESP) injection, 60 mcg, subcutaneous, Weekly DULoxetine, 20 mg, oral, Daily ferrous sulfate, 325 mg, nasogastric, Daily with breakfast gabapentin, 100 mg, oral, TID ipratropium-albuteroL, 3 mL, nebulization, Q6H midodrine, 10 mg, oral, TID pantoprazole, 40 mg, oral, QAM AC risperiDONE, 3 mg, oral, Nightly rivastigmine, 1 patch, transdermal, Daily sodium chloride, 10 mL, intravenous, Q96H sodium chloride, 10 mL, intravenous, Q96H sodium chloride, 30 mL, intravenous, Q8H AND sodium chloride, 10 mL, intravenous, PRN AND sodium chloride, 20 mL, intravenous, PRN [START ON 03/20/2025] sodium citrate, 1.6 mL, intravenous, Q96H [START ON 03/20/2025] sodium citrate, 1.6 mL, intravenous, Q96H tamsulosin, 0.4 mg, oral, Daily topiramate, 200 mg, nasogastric, BID Social History: Social History Socioeconomic History Marital status: Single Spouse name: Not on file Number of children: Not on file Years of education: Not on file Highest education level: Not on file Occupational History Not on file Tobacco Use Smoking status: Never Smokeless tobacco: Never Tobacco comments: 02/25 [facility] - AMS, unable to reach family. Per [place] pt does not have history of smoking on file with them Vaping Use Vaping status: Unknown Substance and Sexual Activity Alcohol use: Defer Comment: 02/25 [facility] - AMS, unable to reach family. Drug use: Not on file Comment: 02/25 [facility] - AMS, unable to reach family. Sexual activity: Not on file Other Topics Concern Not on file Social History Narrative Not on file Social Drivers of Health Financial Resource Strain: Low Risk (01/31/2025) Received from [facility] Overall Financial Resource Strain (CARDIA) Difficulty of Paying Living Expenses: Not hard at all Food Insecurity: Patient Unable To Answer (03/16/2025) Hunger Screening Food Insecurity - Worry: Patient unable to answer Food Insecurity - Inability: Patient unable to answer Transportation Needs: No Transportation Needs (02/25/2025) PRAPARE - Transportation Lack of Transportation (Medical): No Lack of Transportation (Non-Medical): No Physical Activity: Not on file Stress: Not on file Social Connections: Not on file Interpersonal Safety: Patient Unable To Answer (02/25/2025) Humiliation, Afraid, Rape, and Kick questionnaire Fear of Current or Ex-Partner: Patient unable to answer Emotionally Abused: Patient unable to answer Physically Abused: Patient unable to answer Sexually Abused: Patient unable to answer Housing Instability: Low Risk (02/25/2025) Housing Instability Housing Instability: No Family History: Family History Family history unknown: Yes Allergies: Diphenhydramine, Amlodipine, Depakote [divalproex], Felodipine, Metformin, Nitroglycerin, Ropinirole, and Sulfa (sulfonamide antibiotics) Review of Systems: CONSTITUTIONAL: negative EYES: negative HEENT: negative RESPIRATORY: negative CARDIOVASCULAR: negative GASTROINTESTINAL: negative GENITOURINARY: negative INTEGUMENT/BREAST: negative HEMATOLOGIC/LYMPHATIC: negative ALLERGIC/IMMUNOLOGIC: negative ENDOCRINE: negative MUSCULOSKELETAL: negative NEUROLOGICAL: negative BEHAVIOR/PSYCH: negative Physical Examination : BP 107/56 Pulse 95 Temp 36.7 ??C (98 ??F) (Oral) Resp 20 Wt 84.1 kg (185 lb 6.5 oz) SpO2 98% BMI 29.04 kg/m?? Temperature Range: Temp: 36.7 ??C (98 ??F) Temp Av.9 ??C (98.5 ??F) Min: 36.7 ??C (98 ??F) Max: 37.2 ??C (99 ??F) CONSTITUTIONAL: awake, alert, cooperative, no apparent distress, EYES:rt and left eyes Lids and lashes normal, sclera clear, conjunctiva normal ENT: Normocephalic, without obvious abnormality, atraumatic, oral pharynx with moist mucus membranes, rt and left ear with no deformity NECK: Supple, symmetrical, trachea midline, no thyroid deformity LUNGS: No increased work of breathing, good air exchange, clear to auscultation bilaterally, no crackles or wheezing CARDIOVASCULAR: regular rate and rhythm, normal S1 and S2, and no murmur noted ABDOMEN: normal bowel sounds, soft, non-distended, non-tender, no masses palpated, no hepatosplenomegally, MUSCULOSKELETAL:both upper and lower extremities with no redness, warmth, or swelling NEUROLOGIC: Awake, alert, oriented to name, place and time. Follow commands. Cranial nerves grosslyintact SKIN: no rash Medical Decision Making: I have independently reviewed/ordered the following labs: CBC with Differential: Results from last 7 days Lab Units 03/19/25 0649 03/18/25 0503 03/18/25 0203 03/17/25 0740 03/17/25 0223 WBC 10^9/L 4.3 -- 4.6 -- 5.0 HEMOGLOBIN g/dL 7.9* 7.4* 7.2* 8.0* 7.0* HEMATOCRIT % 23.8* -- 21.6* 24.0* 20.5* PLATELETS 10^9/L 118* -- 109* -- 77* BMP: Results from last 7 days Lab Units 03/19/25 0649 03/18/25 0203 03/17/25 0627 03/17/25 0223 03/16/25 1132 03/16/25 0135 03/15/25 1739 POTASSIUM mmol/L 3.9 3.9 4.3 3.5 < > -- 4.0 CHLORIDE mmol/L 104 101 -- 105 < > -- 100 CO2 mmol/L 27 23 -- 24 < > -- 24 BUN mg/dL 34* 52* -- 34* < > -- 51* CREATININE mg/dL 2.23* 3.33* -- 2.28* < > -- 3.13* EGFR (CKD-EPI) NON-RACE DEPENDENT ml/min/1.73sq.m 31* 19* -- 30* < > -- 20* CALCIUM mg/dL 9.0 8.8 -- 8.3* < > -- 9.2 MAGNESIUM mg/dL -- -- -- 1.7* -- 1.9 1.8 < > = values in this interval not displayed. LFTs: Results from last 7 days Lab Units 03/19/2549 03/18/25 0203 03/17/25 0223 ALK PHOS U/L 132* 115 100 ALT U/L 6 8 6 AST U/L 11 12 10 Vanco: Inflam markers: Lab Results Component Value Date CRP 1.6 (H) 02/25/2025 No results found for: SEDRATE Cultures: Microbiology Results Procedure Component Value Units Date/Time Blood culture #1 [[id number]] Collected: 03/19/25648 Specimen: Blood, Venous Updated: 03/19/25700 Blood culture #2 [[id number]] Collected: 03/19/25648 Specimen: Blood, Venous Updated: 03/19/25700 Blood culture #1 [[id number]] Collected: 03/16/25 103 Specimen: Blood, Venous Updated: 03/19/25 1101 CULTURE RESULTS NO GROWTH 3 DAYS Narrative: Suboptimal volume of blood collected, Results may be affected. Blood culture #2 [[id number]] Collected: 03/16/25 1035 Specimen: Blood, Venous Updated: 03/19/25 1101 CULTURE RESULTS NO GROWTH 3 DAYS Narrative: Suboptimal volume of blood collected, Results may be affected. Mrsa Pcr nasal swab [[id number]] (Normal) Collected: 03/16/25747 Specimen: Swab from Nostril Updated: 03/16/2559 MRSA PCR NASAL Negative Resp Pathogens Panel/SARS CoV-2 [[id number]] (Normal) Collected: 03/16/25747 Specimen: Swab from Nasopharynx Updated: 03/16/25948 SARS COV 2 BY PCR Not Detected ADENOVIRUS Not Detected CORONAVIRUS 229E Not Detected CORONAVIRUS HKU1 Not Detected CORONAVIRUS NL63 Not Detected CORONAVIRUS OC43 Not Detected HUMAN METAPNEUVIRUS Not Detected RHINO/ENTEROVIRUS Not Detected INFLUENZA A Not Detected INFLUENZA B Not Detected PARAINFLUENZA 1 Not Detected PARAINFLUENZA 2 Not Detected PARAINFLUENZA 3 Not Detected PARAINFLUENZA 4 Not Detected RESP SYNCYTIAL VIRUS Not Detected BORD PARAPERTUSSIS Not Detected BORDETELLA PERTUSSIS Not Detected CHLAM.PNEUMONIAE Not Detected MYCOPLASMA PNEUMONIAE Not Detected Narrative: The [employer] Respiratory Panel 2.1 (RP2.1) is a multiplexed nucleic acid test intended for the simultaneous qualitative detection and differentiation of nucleic acid from multiple viral and bacterial respiratory organisms, including nucleic acid from Severe Acute Respiratory Syndrome Coronavirus 2 (SARS-CoV-2), in nasopharyngeal swabs obtained from individuals suspected of COVID-19 by their healthcare provider. Testing is limited to laboratories certified under the Clinical Laboratory Improvement Amendments of 1988 (CLIA), to perform high complexity or moderate complexity tests. SARS-CoV-2 RNA and nucleic acids from the other respiratory viral and bacterial organisms identified by this test are generally detectable in nasopharyngeal swabs during the acute phase of infection.The detection and identification of specific viral and bacterial nucleic acids from individuals exhibiting signs and/or symptoms of respiratory infection is indicative of the presence of the identified microorganism and aids in the diagnosis of respiratory infection if used in conjunction with other clinical and epidemiological information. Positive results are indicative of the presence of the identified organism, but do not rule out co-infection with other pathogens. The agent(s) detected by the [employer] RP2.1 may not be the definite cause of disease and clinical correlation with patient history and other diagnostic information is necessary to determine patient infection status. Negative results in the setting of a respiratory illness may be due to infection with pathogens notdetected by this test, or lower respiratory tract infection that may not be detected by a nasopharyngeal specimen. Negative results do not preclude SARS-CoV-2 infection and should not be used as the sole basis for patient management decisions. Negative HORACIO-CoV-2 results must be combined with clinical observations, patient history and epidemiological information. Negative results for other organisms identified by the test may require additional laboratory testing when evaluating a patient with possible respiratory tract infection. Urine Culture Urine, Indwelling Catheter [[id number]] (Abnormal) (Susceptibility) Collected: 03/15/25 175 Specimen: Urine, Indwelling Catheter Updated: 03/18/25 0820 CULTURE RESULTS 50,000-100,000 CFU/mL Enterococcus species Susceptibility Enterococcus species Method Not Specified Ampicillin >=32.0 Resistant Levofloxacin >=8.0 Resistant Nitrofurantoin 32 Susceptible Vancomycin <=0.5 Susceptible Blood culture [[id number]] Collected: 03/15/251738 Specimen: Blood, Venous Updated: 03/19/25 0002 CULTURE RESULTS NO GROWTH 3 DAYS Narrative: Suboptimal volume of blood collected, Results may be affected. Blood culture [[id number]] Collected: 03/15/251738 Specimen: Blood, Venous Updated: 03/19/25 0002 CULTURE RESULTS NO GROWTH 3 DAYS Narrative: Suboptimal volume of blood collected, Results may be affected. Imaging Studies: Fluoroscopy swallow motility function Result Date: 03/19/2025 Narrative: FL SWALLOW MOTILITY FUNCTION HISTORY: Oropharyngeal dysphagia COMPARISON: None TECHNIQUE: Video fluoroscopic swallow study was performed in conjunction with speech pathologist. Barium contrast materials of varying consistencies administered. FINDINGS: Fluoroscopy time: 2.6 Reference air kerma: 5.4 mGy Runs: 13 Thin: Aspiration Mildly thick: Aspiration Moderately thick: Aspiration Applesauce: No penetration or aspiration. Fruit: No penetration or aspiration. IMPRESSION: 1. Abnormal swallow study as described above 2. Please correlate with dedicated speech pathology report for additional details and recommendations. Approved by Edward Teran MD on 03/19/2025 10:31 AM Kwesi Zamorano have personally reviewed the image(s) and agree with and/or edited the report Finalized by Kwesi Cleary on 03/19/2025 10:39 AM X-ray chest 1 view Result Date: 03/19/2025 Narrative: History: Follow-up for infiltrate right lung. Exam/Technique: Portable upright AP chest Comparison: 03/16/2025 Findings: Right-sided tunneled dialysis catheter, transvenous pacemaker, and changes from previous open heart surgery all unaltered. Infiltrate at the right lung base appears more extensive than on the previous study.. Cardiomegaly appears unchanged with interval increase in vascular congestion IMPRESSION: Airspace infiltrate at the right lung base appears more extensive thanon the previous study suggestive of pneumonia. Pulmonary vascular congestion has also increased. Wor kstation:[id number] Finalized by Erwin Rivero MD on 03/19/2025 5:03 AM X-ray chest 1 view Result Date: 03/16/2025 Narrative: History: Right lower lobe infiltrate Technique: A portable single frontal view of the chest was obtained. Comparison: 03/15/25 Findings: A right lower lobe infiltrate is again seen. The heart size remains enlarged but is unchanged. The remaining lung emery are clear. There is a stable tunneled dialysis catheter on the right. Impression: Stable right lower lobe infiltrate. Finalized by Aurelio Saldaña MD on 03/16/2025 1:57 AM X-ray chest 1 view Result Date: 03/15/2025 Narrative: Portable chest: HISTORY: Cough. Single view the chest was obtained and compared to priorexam 02/24/2025. There is right lower lobe infiltrate. Cardiac contour is enlarged but unchanged. No pneumothorax. Pulmonary vasculature is stable. IMPRESSION: Lower lobe infiltrate. Finalized by Kp Serrano MD on 03/15/2025 5:[address] brain without contrast stroke alert Result Date: 03/15/2025 Narrative: HISTORY: A 70-year-old male with a history of the altered mental status and new hallucination. There is history of dementia and patient is on dialysis. EXAM/TECHNIQUE: Multidetector spiralCT scan of brain is performed. Multiplanar reconstruction images are reformatted. All CT scans at this facility use dose modulation, iterative reconstruction, and/or weight based dosing when appropriate to reduce radiation dose to as low as reasonably achievable. COMPARISON: Comparison is made withCT scan of brain of 02/24/2025. FINDINGS: The ventricular system is normal in size and configuration. There is mild degree of cortical atrophy. There is normal differentiation of zelaya and white matters. There is no evidence of intracranial hemorrhage or acute pathology. The cerebellum and brainstemare unremarkable. No mass effect, midline shift of the structures or extra-axial fluid collections are noted. The calvarium is intact. The visualized paranasal sinuses and mastoid air cells are clear. IMPRESSION: * No evidence of intracranial hemorrhage or acute pathology. Finalized by Rakesh Zhu MD on 03/15/2025 5:[address] brain without contrast Result Date: 02/24/2025 Narrative: Clinical information: Tremors. Comparison: Limited comparison with outside report of CT head dated 01/31/2025 Technique: Routine unenhanced brain CT. All CT scans at this facility use dosemodulation, iterative reconstruction, and/or weight based dosing when appropriate to reduce radiation dose to as low as reasonably achievable. Findings: Suboptimal evaluation due to motion and beam hardening artifact. No acute intracranial hemorrhage, extracerebral fluid collection, midline shift or mass effect. No fracture of the calvarium, skull base and visualized maxillofacial bones. No acutetranscortical infarction. Probable chronic ischemic changes of the white matter. Intracranial athero sclerosis. Cerebral volume loss with enlargement of the ventricles. Bilateral lens replacements. Visualized paranasal sinuses are essentially clear. Impression: Suboptimal evaluation due to motion and beam hardening artifact. No gross acute intracranial abnormality. Finalized by Fe Parrish MD on 02/24/2025 7:43 PM X-ray chest 1 view Result Date: 02/24/2025 Narrative: XR CHEST 1 VW HISTORY: Tremors COMPARISON: 07/12/2012 FINDINGS: Patient is significantly rotated. Right chest wall cardiac pacing device remains in place. No pleural effusion, pneumothorax,or focal airspace opacity. Cardiomediastinal silhouette appears nonenlarged. IMPRESSION: * No evidence for acute pulmonary process, within limitations of patient positioning. Approved by Resident: Sundar Jung MD on 02/24/2025 4:50 PM I, Ebenezer Smith MD have personally reviewed the image(s) and agree with and/or edited the report Finalized by Ebenezer Smith MD on 02/24/2025 5:00 PM Thank you for allowing us to participate in the care of this patient. Please call with questions. TIMOTEO Smart This note was completed using a voice mailing jogger system. Every effort was made to ensure accuracy. However, inadvertent computerized mailing jogger errors may be present. TIMOTEO Peña 03/19/25 1235 * Maritza Sharma MD - 03/16/2025 1:10 PM ESTAssociated Order(s): IP CONSULT TO NEPHROLOGY Images from the original note were not included. 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 70-year-old male with a past medical history significant for end-stage renal disease (ESRD) on hemodialysis (Friday, , Friday schedule) since 12/23/2024 at [facility] under the care of Dr. Matt Sharma, chronic systolic heart failure with reduced ejection fraction (HFrEF) of 35%, paroxysmal atrial fibrillation on Eliquis, type 2 diabetes mellitus, and COPD on 2 liters of oxygen at baseline presented to the emergency department with altered mental status. The patient was initially at [facility] where a stroke alert was called for left-sided deficit, facial droop, and slurring of speech. CT of the brain was negative for acute pathology. A chest x-ray revealed a right lower lobe infiltrate, and the altered mental status was attributed to an infectious etiology. The patient was started on vancomycin and cefepime. While being transferred to [facility], he developed hypotension, unresponsiveness, and fever, prompting his return to the [facility] ED. There, a right femoral central line was placed, and he was started on vasopressor support with Levophed. He was subsequently transferred to the ICU at this facility for septic shock. Upon arrival in the ICU, he was noted to be alert but confused and not following commands, requiring Levophed. Nephrology consultation was requested for management of ESRD and planning for hemodialysis in the setting of critical illness. Assessment End stage renal disease (ESRD) on maintenance hemodialysis, Friday, , Friday schedule [facility] under the care of Dr. Matt Sharma. Today is a scheduled dialysis day. Electrolyte Abnormalities: Stable on initial evaluation. Acid-Base status: No significant acidosis or alkalosis on initial evaluation. Volume Status: Appears euvolemic to slightly hypervolemic based on recent admission for HFrEF. Currently on vasopressors which can affect volume assessment. Hypertension: Historically managed with multiple agents, currently held due to shock. Hemodynamics: History of reduced LVEF EF 35% per last echo on 01/2025. Currently on vasopressor support. Anemia of CKD: Most recent hemoglobin is 8.1 g/dL. CKD-MBD / Renal Osteodystrophy: To be managed as per outpatient protocol. Sepsis secondary to right-sided pneumonia. Septic shock requiring vasopressor support. Acute on chronic hypoxic respiratory failure. COPD on 2L NC at baseline Acute Metabolic encephalopathy. Heart failure with reduced ejection fraction (HFrEF). Paroxysmal atrial fibrillation on Eliquis. Type 2 diabetes mellitus. Plan Proceed with routine hemodialysis today. Hold all home antihypertensive medications pre-dialysis. Will re-evaluate post- dialysis for possible resumption of some oral antihypertensives. Midodrine may be used as needed for intradialytic or post-dialysis hypotension. Strict I&O, bladder scan q12h, Daily weight, accurate documentation of urine output. Erythropoietin-stimulating agent (KG) per protocol. 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 Fluid restriction to 1400 ml/day. Dose all medications to GFR <10 ml/min. Renal chemistry panel monitoring in AM. Thank you for this consultation, we will follow along with you regarding care of this patient whilethe patient is here in the hospital, please call if you have any questions or concerns. 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 Schedule : See Blink for iPhone and Android on-call schedule for [facility] ) Nephrology Epic chat : Available on Blink for iPhone and Android chat during working hours only, if no response please use answering service Perfect serve answering service: [phone], if no response please use utilization reviewer Physician Cell phone Cell Phone for utilization reviewer Physician : Use as back up, available on Blink for iPhone and Android on-call schedule History of presenting illness 70-year-old male with a past medical history significant for end-stage renal disease (ESRD) on hemodialysis (Friday, , Friday schedule) since 12/23/2024 at [facility] under the care of Dr. Matt Sharma, chronic systolic heart failure with reduced ejection fraction (HFrEF) of 35%, paroxysmal atrial fibrillation on Eliquis, type 2 diabetes mellitus, and COPD on 2 liters of oxygen at baseline presented to the emergency department with altered mental status. The patient was initially at [facility] where a stroke alert was called for left-sided deficit, facial droop, and slurring of speech. CT of the brain was negative for acute pathology. A chest x-ray revealed a right lower lobe infiltrate, and the altered mental status was attributed to an infectious etiology. The patient was started on vancomycin and cefepime. While being transferred to [facility], he developed hypotension, unresponsiveness, and fever, prompting his return to the [facility] ED. There, a right femoral central line was placed, and he was started on vasopressor support with Levophed. He was subsequently transferred to the ICU at this facility for septic shock. Upon arrival in the ICU, he was noted to be alert but confused and not following commands, requiring Levophed. Nephrology consultation was requested for management of ESRD and planning for hemodialysis in the setting of critical illness. Past Medical History: Diagnosis Date Acute myocardial infarction ([facility]) Cardiac pacemaker in situ Chronic systolic heart failure ([facility]) Dependence on renal dialysis Diabetes mellitus without complication ([facility]) End stage renal disease ([facility]) Has a tremor 02/25/2025 admission Hypomagnesemia Hyposmolality syndrome PNA (pneumonia) Syncope and collapse No past surgical history on file. Family History Family history unknown: Yes Social History Socioeconomic History Marital status: Single Spouse name: Not on file Number of children: Not on file Years of education: Not on file Highest education level: Not on file Occupational History Not on file Tobacco Use Smoking status: Never Smokeless tobacco: Never Tobacco comments: 02/25 TEO - AMS, unable to reach family. Per [facility] pt does not have history of smoking on file with them Vaping Use Vaping status: Unknown Substance and Sexual Activity Alcohol use: Defer Comment: 02/25 TEO - AMS, unable to reach family. Drug use: Not on file Comment: 02/25 TEO - AMS, unable to reach family. Sexual activity: Not on file Other Topics Concern Not on file Social History Narrative Not on file Social Drivers of Health Financial Resource Strain: Low Risk (01/31/2025) Received from [facility] Overall Financial Resource Strain (CARDIA) Difficulty of Paying Living Expenses: Not hard at all Food Insecurity: Patient Unable To Answer (03/16/2025) Hunger Screening Food Insecurity - Worry: Patient unable to answer Food Insecurity - Inability: Patient unable to answer Transportation Needs: No Transportation Needs (02/25/2025) PRAPARE - Transportation Lack of Transportation (Medical): No Lack of Transportation (Non-Medical): No Physical Activity: Not on file Stress: Not on file Social Connections: Not on file Interpersonal Safety: Patient Unable To Answer (02/25/2025) Humiliation, Afraid, Rape, and Kick questionnaire Fear of Current or Ex-Partner: Patient unable to answer Emotionally Abused: Patient unable to answer Physically Abused: Patient unable to answer Sexually Abused: Patient unable to answer Housing Instability: Low Risk (02/25/2025) Housing Instability Housing Instability: No Prior to Admission medications Medication Sig Start Date End Date Taking? Authorizing Provider acetaminophen (TYLENOL EXTRA STRENGTH) 500 mg tablet Take 2 tablets (1,000 mg total) by mouth every12 (twelve) hours as needed for pain. Yes Not In System Ref Prov albuterol (PROVENTIL HFA;VENTOLIN HFA) 90 mcg/actuation inhaler Inhale 2 puffs every 6 (six) hours as needed for wheezing or shortness of breath. Yes Not In System Ref Prov albuterol (PROVENTIL,VENTOLIN) 2.5 mg /3 mL (0.083 %) nebulizer solution Inhale 3 mL (2.5 mg total)every 6 (six) hours as needed for wheezing or shortness of breath. Yes Not In System Ref Prov albuterol-budesonide 90-80 mcg/actuation HFA aerosol inhaler Inhale 2 puffs every 6 (six) hours as needed (wheezing, SOB). Yes Not In System Ref Prov allopurinoL 200 mg tablet Take 200 mg by mouth in the morning. Yes Not In System Ref Prov amiodarone (PACERONE) 200 mg tablet Take 1 tablet (200 mg total) by mouth in the morning. 01/11/25 Yes Not In System Ref Prov ammonium lactate (AMLACTIN) 12 % cream Apply 1 Application topically in the morning and 1 Application before bedtime. Yes Not In System Ref Prov apixaban (ELIQUIS) 5 mg tablet Take 1 tablet (5 mg total) by mouth in the morning and 1 tablet (5 mg total) before bedtime. 04/08/24 Yes Not In System Ref Prov ARIPiprazole (ABILIFY) 10 mg tablet Take 1 tablet (10 mg total) by mouth in the morning. Indications: manic-depression. Yes Not In System Ref Prov atorvastatin (LIPITOR) 40 mg tablet Take 1 tablet (40 mg total) by mouth in the morning. Indications: excessive fat in the blood. Yes Not In System Ref Prov budesonide (PULMICORT) 0.5 mg/2 mL nebulizer solution Inhale 2 mL (0.5 mg total) in the morning and2 mL (0.5 mg total) before bedtime. Yes Not In System Ref Prov busPIRone (BUSPAR) 15 mg tablet Take 1 tablet (15 mg total) by mouth 3 (three) times a day. Yes NotIn System Ref Prov carvediloL (COREG) 3.125 mg tablet Take 1 tablet (3.125 mg total) by mouth in the morning and 1 tablet (3.125 mg total) before bedtime. 02/17/25 05/18/25 Yes Not In System Ref Prov cholecalciferol (VITAMIN D3) 1,000 units tablet Take 2 tablets (2,000 Units total) by mouth in the morning. Yes Not In System Ref Prov cyanocobalamin 1000 MCG tablet Take 1 tablet (1,000 mcg total) by mouth in the morning. 03/02/25 Yes TIMOTEO Roldan darbepoetin sylwia-polysorbate (ARANESP) 60 mcg/0.3 mL syringe Inject 0.3 mL (60 mcg total) under theskin once a week Indications: anemia due to kidney failure. Patient taking differently: Inject 0.3 mL (60 mcg total) under the skin once a week Indications: anemia due to kidney failure. Mondays03/07/25 Yes TIMOTEO Roldan DULoxetine (CYMBALTA) 20 mg capsule Take 1 capsule (20 mg total) by mouth in the morning. Yes Not In System Ref Prov ferrous sulfate 325 (65 FE) MG tablet Take 1 tablet (325 mg total) by mouth daily with breakfast. Yes Not In System Ref Prov furosemide (LASIX) 80 mg tablet Take 1 tablet (80 mg total) by mouth daily. 03/02/25 Yes TIMOTEO Roldan gabapentin (NEURONTIN) 100 mg capsule Take 1 capsule (100 mg total) by mouth 3 (three) times a day.Yes Not In System Ref Prov ipratropium-albuteroL (DUONEB) 0.5 mg-3 mg(2.5 mg base)/3 mL nebulizer Inhale 3 mL in the morning and 3 mL before bedtime. 05/13/24 05/13/25 Yes Not In System Ref Prov isosorbide mononitrate (IMDUR) 120 mg 24 hr tablet Take 1 tablet (120 mg total) by mouth daily. 02/19/25 Yes Not In System Ref Prov melatonin (CIRCADIN) 5 mg tablet Take 1 tablet (5 mg total) by mouth nightly as needed (insomina). 03/01/25 Yes TIMOTEO Roldan midodrine (PROAMATINE) 10 mg tablet Take 1 tablet (10 mg total) by mouth every 3 (three) hours as needed (for hypotension give pre and mid dialysis). 02/22/25 Yes Not In System Ref Prov nitroglycerin (NITROSTAT) 0.[address] 1 tablet (0.4 mg total) under the tongue every 5 (five) minutes as needed for chest pain. 02/20/25 Yes Not In System Ref Prov pantoprazole (PROTONIX) 40 mg EC tablet Take 1 tablet (40 mg total) by mouth every morning before breakfast. 12/29/24 Yes Not In System Ref Prov polyethylene glycol (GLYCOLAX) 17 gram packet Take 17 g by mouth in the morning. Yes Not In System Ref Prov ranolazine (RANEXA) 1,000 mg 12 hr tablet Take 1 tablet (1,000 mg total) by mouth in the morning and 1 tablet (1,000 mg total) before bedtime. 12/29/24 Yes Not In System Ref Prov risperiDONE (RisperDAL) 3 mg tablet Take 1 tablet (3 mg total) by mouth nightly. 01/03/25 Yes Not InSystem Ref Prov rivastigmine (EXELON) 4.6 mg/[address] 1 patch on the skin in the morning. 02/19/25 Yes Not In System Ref Prov sacubitriL-valsartan (ENTRESTO) 24-26 mg tablet Take 0.5 tablets by mouth in the morning and 0.5 tablets before bedtime. 02/17/25 06/17/25 Yes Not In System Ref Prov sevelamer (RENVELA) 800 mg tablet Take 1 tablet (800 mg total) by mouth 3 (three) times a day. Yes Not In System Ref Prov sodium chloride 0.9 % injection Infuse 10 mL into a venous catheter as needed for line care. Patient taking differently: Infuse 10 mL into a venous catheter every 12 (twelve) hours. Line care 03/01/25 Yes TIMOTEO Roldan spironolactone (ALDACTONE) 25 mg tablet Take 0.5 tablets (12.5 mg total) by mouth in the morning. 03/01/25 Yes TIMOTEO Roldan tamsulosin (FLOMAX) 0.4 mg capsule Take 1 capsule (0.4 mg total) by mouth in the morning. Yes Not In System Ref Prov ticagrelor (BRILINTA) 90 mg tablet Take 1 tablet (90 mg total) by mouth in the morning and 1 tablet(90 mg total) before bedtime. Yes Not In System Ref Prov topiramate (TOPAMAX) 200 MG tablet Take 1 tablet (200 mg total) by mouth in the morning and 1 tablet (200 mg total) before bedtime. Yes Not In System Ref Prov sodium chloride 0.9 % injection Infuse 20 mL into a venous catheter as needed for line care. Patient not taking: Reported on 03/16/2025 03/01/25 TIMOTEO Roldan sodium chloride 0.9 % injection Infuse 10 mL into a venous catheter every 12 (twelve) hours. Patient not taking: Reported on 03/16/2025 03/01/25 TIMOTEO Roldan Allergies Allergen Reactions Diphenhydramine Anxiety, Hallucinations and Other (See Comments) Confusion Amlodipine Depakote [Divalproex] Felodipine Metformin Nitroglycerin Hives Patient states I get hives , breakout in rashes Ropinirole Sulfa (Sulfonamide Antibiotics) Review Of Systems: ROS could not be done due to clinical condition Physical Exam: VITALS BP (!) 134/107 Pulse 84 Temp (!) 38.8 ??C (101.8 ??F) (Axillary) Resp 18 Wt 86.5 kg (190 lb11.2 oz) SpO2 97% BMI 29.87 kg/m?? Wt Readings from Last 3 Encounters: 03/16/25 86.5 kg (190 lb 11.2 oz) 03/16/25 83 kg (183 lb) 02/28/25 83.4 kg (183 lb 13.8 oz) BMI: Body mass index is 29.87 kg/m??. I/O (24 Hours) No intake or output data in the 24 hours ending 03/16/25 1310 General: General examination: Ill-appearing, somnolent, not following commands. HEENT: No conjunctival pallor, anicteric sclera, no oropharyngeal erythema. Mucous membranes are moist. Neck: No lymphadenopathy, no JVD. Neck is supple. Cardiovascular: Regular rate and rhythm. Murmur heard. Dialysis port present in right upper chest. Respiratory: Normal breath sounds. No wheezes or crackles. No respiratory distress. Abdomen: Abdomen is soft and non-tender. Bowel sounds are normal. Extremities: No edema. Dry skin noted on bilateral lower extremities. Neurological: Alert but confused and disoriented. Does not follow commands. Skin: No rashes or lesions. Skin is warm and dry. Psychiatric: Appropriate affect, no acute distress. Appears anxious. Medications Scheduled Meds: apixaban, 5 mg, nasogastric, BID ARIPiprazole, 10 mg, oral, Daily aspirin, 81 mg, nasogastric, Daily atorvastatin, 40 mg, nasogastric, Daily busPIRone, 15 mg, nasogastric, TID cefepime (MAXIPIME) IV, 1,000 mg, intravenous, Q24H cholecalciferol (vitamin D3), 1,000 Units, nasogastric, Daily cyanocobalamin, 1,000 mcg, nasogastric, Daily DULoxetine, 20 mg, oral, Daily ferrous sulfate, 325 mg, nasogastric, Daily with breakfast gabapentin, 100 mg, oral, TID pantoprazole, 40 mg, oral, QAM AC risperiDONE, 3 mg, nasogastric, Nightly rivastigmine, 1 patch, transdermal, Daily sodium chloride, 30 mL, intravenous, Q8H AND sodium chloride, 10 mL, intravenous, PRN AND sodium chloride, 20 mL, intravenous, PRN topiramate, 200 mg, nasogastric, BID vancomycin, , intravenous, Dosed by Levels Continuous Infusions: norepinephrine, 0.01-0.4 mcg/kg/min, Last Rate: 0.04 mcg/kg/min (03/16/25 0628) sodium chloride 0.9 %, 10 mL/hr sodium chloride 0.9 %, 10 mL/hr sodium chloride 0.9 %, 10 mL/hr sodium chloride 0.9 %, 10 mL/hr PRN Meds: calcium gluconate OR calcium gluconate OR calcium gluconate ipratropium-albuteroL magnesium sulfate OR magnesium sulfate potassium chloride OR potassium chloride potassium chloride in water OR potassium chloride in water sodium phosphate IV OR sodium phosphate IV - central line OR sod phos di, mono-K phos mono sodium chloride AND sodium chloride AND sodium chloride sodium chloride 0.9 % sodium chloride 0.9 % sodium chloride 0.9 % sodium chloride 0.9 % vancomycin Results Review Renal Chemistry Results from last 7 days Lab Units 03/16/25 1132 03/16/25 0135 03/15/25 1739 SODIUM mmol/L 139 -- 136 POTASSIUM mmol/L 4.1 -- 4.0 CHLORIDE mmol/L 104 -- 100 CO2 mmol/L 24 -- 24 BUN mg/dL 59* -- 51* CREATININE mg/dL 3.86* -- 3.13* CALCIUM mg/dL 9.1 -- 9.2 MAGNESIUM mg/dL -- 1.9 1.8 Hepatic: Lab Results Component Value Date AST 10 03/16/2025 AST 13 03/15/2025 AST 16 03/01/2025 ALT 6 03/16/2025 ALT 9 03/15/2025 ALT 10 03/01/2025 ALKPHOS 122 03/16/2025 ALKPHOS 147 (H) 03/15/2025 ALKPHOS 172 (H) 03/01/2025 BNP Lab Results Component Value Date BNP 951 (H) 03/16/2025 Albumin: Lab Results Component Value Date ALBUMIN 3.4 03/16/2025 CBC Results from last 7 days Lab Units 03/16/25 1132 03/15/25 1739 WBC 10^9/L 8.1 9.4 HEMOGLOBIN g/dL 8.1* 9.4* HEMATOCRIT % 23.9* 27.3* PLATELETS 10^9/L 84* 96* Results from last 7 days Lab Units 03/16/25 1132 03/16/25 0648 03/16/25 0150 03/15/25 1739 03/15/25 1728 BEDSIDE GLUCOSE mg/dL -- 143* 200* -- 175* GLUCOSE mg/dL 138* -- -- 141* -- Urine Studies: Lab Results Component Value Date COLOR Yellow 03/15/2025 TURBIDITY Clear 03/15/2025 SPECIFICGRA 1.015 03/15/2025 SPECIFICGRA 1.020 07/12/2012 NITRITE Negative 03/15/2025 PHURINE 7.0 03/15/2025 LEUKOCYTE Negative 03/15/2025 LEUKOCYTE Negative 07/12/2012 PROTEIN 100 mg/dL (A) 03/15/2025 KETONES Negative 03/15/2025 UROBILINOGEN 1.0 eu/dL 03/15/2025 UROBILINOGEN 0.2 07/12/2012 BLOODHGB Moderate (A) 03/15/2025 No results found for: URINECREATI , PROTUR , MICROALBUR , MICRAU No results found for: UPROCRTRAT , ALBCREATRA Urine Sodium: No components found for: TRAVIS Urine Potassium: No results found for: KUR Urine Chloride: No results found for: CLUR Urine Osmolarity: No components found for: OSMOU Urine Creatinine: No results found for: LABCREA Urine Eosinophils: No components found for: UEOS Urine Protein: No components found for: TPU Immunology Profile Lab Results Component Value Date CRP 1.6 (H) 02/25/2025 No results found for: HAV , HEPAIGM , HEPBIGM , HEPBCAB , HBEAG , HEPCAB SARITA: No results found for: SARITA C3:No results found for: C3 C4:No results found for: C4 MPO ANCA: No results found for: MPO PR3 ANCA: No components found for: PR3 hepatitis serologies ANTIGBM:No components found for: GBMABIGG HEPATITIS B SURFACE AG: Lab Results Component Value Date HEPBSAG Non-Reactive 02/25/2025 HEPATITIS C AB: No results found for: HEPCAB Electrophoresis: SPEP:No results found for: PROT , LABALPH , LABBETA , PATH UPEP:No results found for: LABPE Anemia Profile Lab Results Component Value Date WBC 8.1 03/16/2025 WBC 9.4 03/15/2025 HGB 8.1 (L) 03/16/2025 HGB 9.4 (L) 03/15/2025 HCT 23.9 (L) 03/16/2025 HCT 27.3 (L) 03/15/2025 PLT 84 (L) 03/16/2025 PLT 96 (L) 03/15/2025 Lab Results Component Value Date IRON 73 02/25/2025 TIBC 242 (L) 02/25/2025 FERRITIN 551 (H) 02/25/2025 Bone Mineral Profile Lab Results Component Value Date CALCIUM 9.1 03/16/2025 Results from last 7 days Lab Units 03/16/25 0135 03/15/25 1739 MAGNESIUM mg/dL 1.9 1.8 Echocardiogram: Echo complete W/3D Recon Independ wkstn Result Date: 02/01/2025 1 1 [facility] Heart Station [address] [place] [address] [phone] (fax) Echocardiogram-[facility] Name: TIMMY MUÑOZ Study Date: 02/01/2025 04:09 PM B/P: 144 mmHg/65 mmHg HR: 72 bpm Date of : 1955 Location: [facility] Height: 67 in. Age: 69 year(s) Patient Room: 3135 Weight: 210 lb. Gender: Male Patient Status: InPt BSA: 2.06 m2 Indication: Arrhythmia, Ischemic cardiomyopathy, CHF with low EF, Atrial Fibrillation, H/O NSTEMI, H/O ETOH abuse Examination: Echocardiogram (Complete), Lumason Contrast Image Quality: Fair Patient Consent: Procedure explained to patient Exam Details Contrast: I.V. dose of LumasonConclusions Left Ventricle: The left ventricle is normal size. Global left ventricular systolic function is moderately reduced. The EF is 35 % visually. Left ventricular wall thickness is mildly increased. Regional wall motion abnormalities (see diagram). Grade 3, severe diastolic dysfunction (reversible restrictive LV filling pattern). Right Ventricle: The right ventricle is mildly enlarged. Right ventricular systolic function appears reduced. Doppler studies suggest severely elevated right sided pressures. Left Atrium: The left atrium is moderately enlarged. Right Atrium: The right atrium is moderately enlarged. Mitral Valve: Mild to moderate mitral regurgitation. Aortic Valve: Trivial aortic valve regurgitation. Tricuspid Valve: Moderate tricuspid regurgitation. Aorta: The aortic root exhibits mild dilatation. Overall Conclusions: Due to suboptimal imaging Lumason contrast was administered for opacification and better delineation of endocardial borders. Measurements Left Ventricle Label Value Normal Value LVOTd 2.2 cm (19cm - 21cm) LVOT VTI 19.3 cm (18cm - 22cm) LVOT PGmax 4 mmHgLVEF visual 35 % LVDd, 2D 5.41 cm (4.2cm - 5.9cm) LVDs, 2D 4.04 cm (2.1cm - 4cm) IVSd, 2D 1.44 cm (0.6cm - 1.1cm) LVPWd, 2D 1.24 cm (0.6cm - 1cm) LV Mass, 2D ASE 309.38 g LV Mass Index, 2D ASE 150.2 g/m?? (50g/m?? - 102.4g/m??) RWT, MM 0.46 (0 - 0.42) LVSVI, 2D 34 ml/m2 LVOT PGmean 2 mmHg [id number]_LVOT73 ml Right Ventricle Label Value Normal Value RVDd, 2D 4.42 cm (1.9cm - 3.8cm) TAPSE 1.5 cm Left Atrium Label Value Normal Value LA Volume, BP 96 ml (18ml - 58ml) LADs, 2D 4.5 cm (3cm - 4cm) LAESV index, BP 46.6 ml/m?? Right Atrium Label Value Normal Value RA Area 28 cm?? Aortic Valve Label Value Normal Value AV DVI 0.58 AV VTI 35.1 cm Mitral Valve Label Value Normal Value MV E Vmax 1.19 m/s MV A Vmax 0.51 m/s MV E/A 2.33 MV E/E' lateral 14.4 MV E' lateral 0.08 m/s Tricuspid Valve Label Value Normal Value RA Pressure 8 mmHg RVSP 69 mmHg TR Vmax 3.89 m/s Aorta Label Value Normal Value AoRoot,2D 3.9 cm (1.4cm - 3.8cm) Great Vessels Label Value Normal Value IVC 2.6 cm (1.2cm - 2.3cm) Valvular Assessment LVOT 0.7 - 1.1 m/sec Aortic Valve 1.0 - 1.7 m/sec Mitral Valve 0.6 - 1.3 m/sec Tricuspid Valve 0.3 - 0.7 m/sec Pulmonic Valve 0.6 - 0.9 m/sec Regurgitation Trivial MildMod Moderate Trivial Stenosis No No No No Max Velocity 1.05 m/sec 1.82 m/s 1.19 m/sec Max Gradient 13.00 mmHg Mean Gradient 7.00 mmHg Valve Area 2.2 cm?? Findings Left Ventricle: The left ventricle is normal size. Global left ventricular systolic function is moderately reduced. The EF is 35 % visually. Left ventricular wall thickness is mildly increased. Regional wall motion abnormalities (see diagram). The basal anterior, basal anteroseptal, basal inferoseptal, basal inferior, mid anterior, mid anteroseptal, mid i nferoseptal, mid inferior, apical anterior, apical septal, apical inferior and apex left ventricular wall segments are hypokinetic. All remaining scored left ventricular wall segments are with no wall motion abnormalities. Grade 3, severe diastolic dysfunction (reversible restrictive LV filling pattern). No thrombus is identified in the left ventricle. Right Ventricle: The right ventricle is mildly enlarged. Right ventricular systolic function appears reduced. A pacemaker wire is seen in the right atrium and right ventricle. Doppler studies suggest severely elevated right sided pressures. Left Atrium: The left atrium is moderately enlarged. Right Atrium: The right atrium is moderately enlarged. Mitral Valve: There is nonspecific thickening of the mitral valve leaflet. Mild to moderate mitral regurgitation. No mitral valve stenosis. Aortic Valve: Aortic valve is tri-leaflet. Trivial aortic valve regurgitation. No aortic valve stenosis. Aortic leaflets exhibit mild calcification. Tricuspid Valve: Tricuspid valve appears normal. Moderate tricuspid regurgitation. No tricuspid valve stenosis. Pulmonic Valve: Pulmonary valve appears normal. Trivial pulmonary regurgitation. No pulmonic valve stenosis. Aorta: The aortic root exhibits mild dilatation. Great Vessels: IVC: The IVC is dilated. Respiratory inspiration greater than 50%. Pericardium: No pericardial effusion. Procedure Staff Reading Group: [facility] Referring Physician: JOE LONG Grease Man[facility] Ordering Physician: RODOLFO MOORE Wall Motion Scores -1 - hyperkinesia, 0 - not evaluated, 1 - normal, 2 - hypokinesia, 3 - akinesia, 4 - dyskinesia Echo congenital limited W/O contrast Result Date: 12/22/2024 Left Ventricle: Severely reduced left ventricular systolic function with a visually estimated EF of15 - 20%. EF by visual approximation is 20%. Left ventricle size is normal. Moderately increased wall thickness. See diagram for wall motion findings. Normal diastolic function. Right Ventricle: Right ventricle size is normal. Lead present in the right ventricle. Normal systolic function. Aortic Valve: Mildly calcified cusps. Mitral Valve: Mildly thickened leaflets. Moderate regurgitation. Tricuspid Valve: Moderate to severe regurgitation. Severely elevated RVSP, consistent with severe pulmonary hypertension. RVSP is 75 mmHg. Image quality is adequate. Contrast used: Lumason. Left Ventricle Severely reduced left ventricular systolic function with a visually estimated EF of 15 - 20%. EF by visual approximation is 20%. Left ventricle size is normal. Moderately increased wall thickness. See diagram for wall motion findings. Normal diastolic function. Right Ventricle Right ventricle size isnormal. Lead present in the right ventricle. Normal systolic function. Left Atrium Left atrium sizeis normal. Right Atrium Lead present in the right atrium. Right atrium size is normal. IVC/SVC IVC diameter is dilated and decreases less than 50% during inspiration; therefore the estimated right atrial pressure is elevated (~15 mmHg). IVC size is normal. Mitral Valve Mildly thickened leaflets. Moderate regurgitation. No stenosis noted. Tricuspid Valve Valve structure is normal. Moderate to severe regurgitation. No stenosis noted. Severely elevated RVSP, consistent with severe pulmonary hypertension. RVSP is 75 mmHg. Aortic Valve Mildly calcified cusps. No regurgitation. No stenosis. Pulmonic Valve The pulmonic valve visualization is suboptimal but appears to be functioning normally. Physiologically normal regurgitation. No stenosis noted. Ascending Aorta Normal sized aortic root and ascending aorta. Pericardium No pericardial effusion. Septum No interatrial shunt visualized with colorDoppler. Study Details Image quality: adequate. Heart rate was 66 bpm. The underlying ECG rhythm was sinus rhythm. Cardiac history: PPM/AICD. Color flow Doppler was performed and pulse wave and/or continuous wave Doppler was performed. Lumason contrast was given to enhance imaging. Wall Scoring Baseline Score Index: 1.76 The following segments are akinetic: basal inferoseptal, basal inferior, mid inferoseptal and apical septal. The following segments are hypokinetic: basal anteroseptal, mid anteroseptal, mid inferior, apical inferior and apex. All other segments are normal. Echo complete W/3D Recon Independ wkstn Result Date: 07/08/2024 1 1 [facility] Heart Station [address] [place] [address] [phone] (fax) Echocardiogram-[facility] Name: TIMMY MUÑOZ Study Date: 07/08/2024 12:08 PM B/P: 132 mmHg/68 mmHg HR: Date of : 1955 Location: [facility] Height: 67 in. Age: 69 year(s) Patient Room: 3135 Weight: 230 lb. Gender: Male Patient Status: InPt BSA: 2.15 m2 Indication: CHF with low ejection fraction Examination: Echocardiogram (Complete), Lumason Contrast Image Quality: Fair Patient Consent: Procedure explained to patient Conclusions Left Ventricle: The left ventricle is normal size. Global left ventricular systolic function is severely reduced. The EF is 10 % visually. Left ventricular wall thickness is normal. Diffuse global hypokinesis.Right Ventricle: The right ventricle is enlarged. Right ventricular systolic function appears reduced. Doppler studies suggest moderately elevated right sided pressures (elevated pulmonary pressure).Left Atrium: The left atrium is moderately enlarged. Right Atrium: The right atrium is moderately enlarged. Mitral Valve: Mild mitral regurgitation. Tricuspid Valve: Moderate tricuspid regurgitation.Great Vessels: IVC: The IVC is dilated. There is no inspiratory collapse of the IVC. Overall Conclusions: Due to suboptimal imaging Lumason contrast was administered for opacification and better delineation of endocardial borders. Measurements Left Ventricle Label Value Normal Value LVOT VTI 10.5 cm (18cm - 22cm) LVOT PGmax 1 mmHg LVEF visual 10 % LVDd, 2D 5.28 cm (4.2cm - 5.9cm) LVDs, 2D 4.62 cm(2.1cm - 4cm) IVSd, 2D 1.33 cm (0.6cm - 1.1cm) LVPWd, 2D 1.07 cm (0.6cm - 1cm) LV Mass, 2D ASE 255.01 g LV Mass Index, 2D ASE 118.6 g/m?? (50g/m?? - 102.4g/m??) RWT, MM 0.41 (0 - 0.42) LVSVI, 2D 16.7ml/m2 LVOT PGmean 1 mmHg Right Ventricle Label Value Normal Value RVDd, 2D 4.59 cm (1.9cm - 3.8cm) TAPSE 0.78 cm Left Atrium Label Value Normal Value LA Volume, BP 87 ml (18ml - 58ml) LAESV index, BP40.5 ml/m?? Right Atrium Label Value Normal Value RA Area 24.2 cm?? Aortic Valve Label Value NormalValue AV DVI 0.44 AV VTI 21.7 cm Mitral Valve Label Value Normal Value MV E' lateral 0.08 m/s Tricuspid Valve Label Value Normal Value RA Pressure 15 mmHg RVSP 47 mmHg TR Vmax 2.82 m/s Aorta Label Value Normal Value AoRoot, 2D 3.8 cm (1.4cm - 3.8cm) Valvular Assessment LVOT 0.7 - 1.1 m/sec Aortic Valve 1.0 - 1.7 m/sec Mitral Valve 0.6 - 1.3 m/sec Tricuspid Valve 0.3 - 0.7 m/sec Pulmonic Valve 0.6- 0.9 m/sec Regurgitation No Mild Moderate Trivial Max Velocity 0.57 m/sec 1.30 m/s 0.84 m/s Max Gradient 7.00 mmHg 3.00 mmHg Mean Gradient 3.00 mmHg Findings Left Ventricle: The left ventricle is normal size. Global left ventricular systolic function is severely reduced. The EF is 10 % visually. Left ventricular wall thickness is normal. Diffuse global hypokinesis. Right Ventricle: The right ventricle is enlarged. Right ventricular systolic function appears reduced. Doppler studies suggest moderately elevated right sided pressures (elevated pulmonary pressure). Left Atrium: The left atrium is moderately enlarged. Right Atrium: The right atrium is moderately enlarged. Mitral Valve: There isnonspecific thickening of the mitral valve leaflet. Mild mitral regurgitation. Aortic Valve: Focal aortic cusp thickening is noted. No aortic valve regurgitation. Tricuspid Valve: Normal tricuspid valve. Moderate tricuspid regurgitation. Pulmonic Valve: Normal pulmonary valve. Trivial pulmonary regurgitation. Aorta: The aortic root exhibits normal size. Great Vessels: IVC: The IVC is dilated. There is no inspiratory collapse of the IVC. Pericardium: No pericardial effusion. Procedure Staff Reading Group: [facility] Grease Man: Morena Green RDCS Ordering Physician: PIERRE AKINS Echo congenital limited W/O contrast Result Date: 01/26/2024 Left Ventricle: Moderately reduced left ventricular systolic function with a visually estimated EF of 35 - 40%. EF by 2D Simpsons Biplane is 36%. Left ventricle size is normal. Mild posterior thickening. Moderate septal thickening. Moderate hypokinesis of the following segments: basal inferior, midinferior and mid inferoseptal. Diastolic function indeterminate in the setting of atrial fibrillation. Right Ventricle: Right ventricle is mildly dilated. Lead present in the right ventricle. Mitral Valve: Moderate regurgitation with a centrally directed jet. Tricuspid Valve: Mild to moderate regurgitation with a centrally directed jet. The estimated RVSP is 87 mmHg. Severely elevated RVSP, consistent with severe pulmonary hypertension. Aorta: Normal sized ascending aorta. Mildly dilated aorticroot. Ao root diameter is 4.1 cm. No previous studies were available for comparison. Left VentricleModerately reduced left ventricular systolic function with a visually estimated EF of 35 - 40%. EF by 2D Simpsons Biplane is 36%. Left ventricle size is normal. Mild posterior thickening. Moderate septal thickening.Moderate hypokinesis of the following segments: basal inferior, mid inferior and midinferoseptal. Diastolic function indeterminate in the setting of atrial fibrillation. Right Ventricle Right ventricle is mildly dilated. Lead present in the right ventricle. Normal systolic function.Left Atrium Left atrium size is normal. Right Atrium Lead present in the right atrium. Right atriumsize is normal. IVC/SVC IVC diameter is less than or equal to 21 mm and decreases greater than 50% during inspiration; therefore the estimated right atrial pressure is normal (~3 mmHg). IVC size is normal. Mitral Valve Valve structure is normal. Moderate regurgitation with a centrally directed jet.No stenosis noted. Tricuspid Valve Valve structure is normal. Mild to moderate regurgitation with acentrally directed jet. The estimated RVSP is 87 mmHg. No stenosis noted. Severely elevated RVSP, consistent with severe pulmonary hypertension. Aortic Valve Valve structure is normal. Trace regurgita tion. No stenosis. Pulmonic Valve The pulmonic valve visualization is suboptimal but appears to be functioning normally. Mild regurgitation. No stenosis noted. Ascending Aorta Normal sized ascending aorta. Mildly dilated aortic root. Ao root diameter is 4.1 cm. Pericardium No pericardial effusion. Pulmonary Artery Main pulmonary artery is mildly dilated. Study Details Image quality: adequate. No contrast was given. Echo limited W/O contrast Result Date: 04/08/2023 APPROVED REPORT Conclusion Mild left ventricular enlargement Mild concentric LVH Mild to moderate global LV systolic dysfunction with no obvious segmental wall motion abnormalities-ejection fraction 40% Grossly normal right-sided chamber dimensions Trileaflet aortic valve with mild calcification but no stenosis Grossly normal mitral valve No pericardial effusion Left Ventricle Left ventricle is mildly dilated. Mild to moderate overall LV systolic dysfunction with no major discrete wall motion abnormalities Borderline concentric left ventricular hypertrophy. General global hypokinesis The diastolic function was not assessed. LVEF is 40%. Right Ventricle The right ventricle is normal size. Right ventricular systolic function could not be assessed. Atria Left atrium is borderline dilated. The right atrium size is normal. The right atrium size is normal. Aortic Valve Trileaflet valve with mild fibrocalcific changes and normal opening in systole The aortic valve is normal in structure. There is no aortic valvular stenosis. Tricuspid Valve The tricuspid valve is normal in structure. Pulmonic Valve Pulmonic valve is not well visualized. Great Vessels The aortic root is normal in size. The IVC was not visualized. Pericardium There is no pericardial effusion. EXAM: Limited 2D Echocardiogram Imaging system used: GE 2D Dimensions LVDd 5.5 cm M: 4.2 - 5.8 LVEF (Roberts's) 47.11 % M: 52 - 72 LVDs 4.58 cm M: 2.5 - 4.0 EF AP4-a2DQ 41.12 % EF AP2-a2DQ 50.69 % EF BP-a2DQ 47.11 % LVESV 89 mL LVEDV 167.48 mL M: 62 - 150 LV Volume Index 72.50 mL/m2 M: 34 - 74 Thank you for the consultation. Please do not hesitate to contact us for any further questions/concerns. We will continue to follow along with you. * Madelyn Stevenson MD - 03/16/2025 10:29 AM EST Patient is seen by Dr. uJnior jordan, I will sign off MADELYN STEVENSON MD [facility] ANY QUESTIONS FEEL FREE TO CALL: 1. OFFICE [phone] 2. ANSWERING SERVICE: .[phone] documented in this encounter Nursing Notes * Rosana Lemus RN - 03/20/2025 3:00 PM EST Patient agitated in chair, moving a lot and trying to sit up, twisting back, hit left arm on chair and tore skin, see charting * Jonathon Hendricks RN - 03/17/2025 9:30 AM EST Spoke with primary care nurse Ambrose Albrecht, patient will be going for video swallow study today. SWAT will sign off, call ext [phone] if we can be of any further assistance documented in this encounter ED Notes * Nory Lanier RN - 03/16/2025 5:28 AM EST Pt presents to ED via EMS from [facility] for c/o AMS. Pt arrived to [facility] as a strokealert. Pt has L sided deficits, garbled speech and facial droop. Pt was found to be septic d/t pneumonia. Pt typically A&Ox1-2 at baseline. Pt had episode of hypotension en route to [facility] so pt wasreturned back to [facility] for IV fluids and re-evaluation. Pt arrives to [facility] with fem central line in place. EMS reports vitals stable throughout transport. EMS started 500mL bolus d/t hypotension. On arrival, pt systolic 90's. Pt has garbled speech. Pt waving arms around in air. GCS 12. G * Aurelio Fritz, - 03/16/2025 5:20 AM ESTAssociated Order(s): Critical Care Images from the original note were not included. [facility] - EMERGENCY DEPARTMENT Pt Name: Timmy Muñoz Birthdate: 1955 Chief Complaint: Chief Complaint Patient presents with Altered Mental Status History of Present Illness: Initial evaluation done by Dr. Aurelio Fritz at 5:36 AM. Pt is a 70 y/o M presenting to the ED via for AMS. Pt is a transfer from [facility] for pneumonia when he developed hypotension. Pt was brought back to [place] for fluids and then brought to [facility] ED. Pt was given 1mg of ativan prior to leaving [place] ED. Pt has a Mhx of CHF. Pt is anticoagulated with eliquis. Pt does dialysis Friday, , and Friday. History provided by: EMS personnel and medical records History limited by: Mental status change Past Medical History: Past Medical History: Diagnosis Date Acute myocardial infarction ([facility]) Cardiac pacemaker in situ Chronic systolic heart failure ([facility]) Dependence on renal dialysis Diabetes mellitus without complication ([facility]) End stage renal disease ([facility]) Has a tremor 02/25/2025 admission Hypomagnesemia Hyposmolality syndrome PNA (pneumonia) Sepsis with encephalopathy and septic shock, due to unspecified organism ([facility]) 03/16/2025 Syncope and collapse Past Surgical History: No past surgical history on file. Family History: Family History Family history unknown: Yes Social History: Social History Socioeconomic History Marital status: Single Tobacco Use Smoking status: Never Smokeless tobacco: Never Tobacco comments: 02/25 [facility] - AMS, unable to reach family. Per [facility] pt does not have history of smoking on file with them Vaping Use Vaping status: Unknown Substance and Sexual Activity Alcohol use: Defer Comment: 02/25 [facility] - AMS, unable to reach family. Social Drivers of Health Financial Resource Strain: Low Risk (01/31/2025) Received from [facility] Overall Financial Resource Strain (CARDIA) Difficulty of Paying Living Expenses: Not hard at all Food Insecurity: Patient Unable To Answer (03/16/2025) Hunger Screening Food Insecurity - Worry: Patient unable to answer Food Insecurity - Inability: Patient unable to answer Transportation Needs: No Transportation Needs (02/25/2025) PRAPARE - Transportation Lack of Transportation (Medical): No Lack of Transportation (Non-Medical): No Interpersonal Safety: Patient Unable To Answer (02/25/2025) Humiliation, Afraid, Rape, and Kick questionnaire Fear of Current or Ex-Partner: Patient unable to answer Emotionally Abused: Patient unable to answer Physically Abused: Patient unable to answer Sexually Abused: Patient unable to answer Housing Instability: Low Risk (02/25/2025) Housing Instability Housing Instability: No Review of Systems: Review of Systems Physical Exam: ED Triage Vitals Temp Pulse Resp BP SpO2 -- -- -- -- -- Temp src Heart Rate Source Patient Position BP Location FiO2 (%) -- -- -- -- -- Vitals: 03/17/25 2345 03/18/25 0000 03/18/25 0005 03/18/25 0015 BP: (!) 68/41 (!) 71/44 (!) 76/47 Temp: (!) 38.2 ??C (100.7 ??F) TempSrc: Axillary Pulse: 82 78 77 74 Resp: 16 18 15 17 SpO2: 94% 94% 93% 93% MAP (mmHg): 51 54 56 Weight: 91 Physical Exam Vitals reviewed. HENT: Head: Normocephalic and atraumatic. Eyes: Conjunctiva/sclera: Conjunctivae normal. Cardiovascular: Rate and Rhythm: Normal rate. Pulmonary: Effort: Pulmonary effort is normal. Breath sounds: Examination of the right-lower field reveals rhonchi. Rhonchi present. Comments: Protecting airway Chest: Comments: Dialysis tube in left chest Abdominal: General: There is no distension. Palpations: Abdomen is soft. Genitourinary: Comments: Catheter in place, enlarge hernia, centra line in left groin Musculoskeletal: General: Normal range of motion. Cervical back: Normal range of motion and neck supple. Skin: General: Skin is warm and dry. Neurological: General: No focal deficit present. Mental Status: He is alert and oriented to person, place, and time. GCS: GCS eye subscore is 4. GCS verbal subscore is 5. GCS motor subscore is 6. Procedure: Critical Care Performed by: Aurelio Fritz DO Authorized by: Aurelio Fritz DO Critical care provider statement: Critical care time (minutes): 33 Critical care time was exclusive of: Separately billable procedures and treating other patients andteaching time Critical care was necessary to treat or prevent imminent or life-threatening deterioration of the following conditions: Sepsis Critical care was time spent personally by me on the following activities: Ordering and performing treatments and interventions, ordering and review of radiographic studies, ordering and review of laboratory studies, re-evaluation of patient's condition, review of old charts, obtaining history frompatient or surrogate, examination of patient, evaluation of patient's response to treatment, discussions with consultants and development of treatment plan with patient or surrogate I assumed direction of critical care for this patient from another provider in my specialty: yes Care discussed with: admitting provider Re-evaluation: I, Melissa Carrillo (scribe), documented on behalf and in the presence of Dr. Marie Fritz. Medical Decision Making See ED course Amount and/or Complexity of Data Reviewed Discussion of management or test interpretation with external provider(s): 5:[address] Osborne from ICU, who reviewed case and is agreeable to admit the patient for further care and evaluation to adult ICU. Risk Prescription drug management. ED Course: ED Course as of 03/18/25 0026 FriMar 16, 2025 [id number] I reviewed the patient's records: Patient seen earlier today for right lower lobe pneumonia, sepsis, altered mental status. Was supposed to be transported here, from [place] but upon transport, became acutely hypotensive and had an altered level of consciousness. He was then taken back to [place] where he had a right femoral central line placed, had repeat chest x-ray which showed a stable right lower lobe infiltrate, and otherwise was given 250 cc fluid bolus to stabilize his hypotension.Critical care was hesitant to take this patient because he had not yet been given any IV fluids, and hospitalist was concerned that patient may become hypotensive again, so requested ER to ER transfer for further assessment upon arrival here today. [DW] 0540 Patient transferred from an outside facility for pneumonia and altered mental status in the setting of end-stage renal disease. Did have a hypotensive episode which delayed his transport here. He is hypotensive upon arrival here. He has already received a 30 cc/kilos bolus. We will need to start on norepinephrine and admit him to the ICU. Mental status is clearly altered, but protecting his airway well at this point. [DW] ED Course User Index [DW] Aurelio Fritz DO Clinical Impressions as of 03/18/25 0026 Sepsis with encephalopathy and septic shock, due to unspecified organism ([facility]) Pneumonia of right lower lobe due to infectious organism ESRD (end stage renal disease) ([facility]) . ED Disposition ED Disposition Admit Date/Time FriMar 16, 2025 5:45 AM Comment At this time, the patient has objective evidence of an acute process that will likely require hospitalization for greater than 2 midnights. The patient will be admitted. Medications Prescribed this Visit This print group is not available in inpatient encounters. Please contact a director of business systems. . Please note that portions of this note were completed with a voice recognition program. Efforts were made to edit the dictations but occasionally words are mis-transcribed. Melisas Carrillo 03/16/25 0523 Melissa Carrillo 03/16/25 0533 Melissa Carrillo 03/16/25 0542 Melissa Carrillo 03/16/25 0546 Aurelio Fritz DO 03/18/25 0026 * Irma Blankenship RN - 03/16/2025 5:16 AM EST Bed: 30 Expected date: Expected time: Means of arrival: [facility] Comments: 70 yo M Trf from [facility] 1mg ativan administered prior to leaving [facility] Resting calm and comfortable during transport 85 HR 93 RA 90/40's BP 70y/o Timmy Muñoz, an ESRD/HD patient T//, dementia/confusion at baseline, accepted by [facility] ([facility]) for admit to [place] for encephalopathy & pneumonia. En route, he became unresponsive, SBP dropped to 80s/90s, & sats dropped to 90% on RA. Returned to [place] ED. Sending spoke to crit care ([place]) who doesn't think this warrants an ICU admit. He a dvised 30cc/kg fluid challenge. Upon updating [facility] (Shamika this time) he wants patient to come to ED for eval of proper level of care for admit. Patient at baseline mentation now. Fritz expecting him DONOVAN from [facility] RN report: hx of dementia and parkinson's. Seen earlier as stroke alert, left sided deficits with garbled speech and facial droop. Scans were negative. Pt was febrile with 101F, dx with sepsis d/t pneumonia. Started on cefepime and vanco. PTN was at [facility] to bring pt to [facility] as a floor a dmit. Ptn said that pt became unresponsive and hypoxic, pt was brought back to [facility] at baselineon 2 LO2 at 96%. Pt had triple lumen in the right fem placed. BP staying in the 110's. Pt is dialysis pt , , and Friday. Last received Friday. Norepi was ordered but has not been started d/t BP being above 100's systolic which is the parameter. Pt did have a massive bowel movement'.Pt received zofran and morphine and 2 1/2 L NS. ICU not accepting. Coming here to be admitted. Jaci from [facility] states that fem qi has been bleeding, pressure dressing has been changed d/t saturation[facility] and said that normal just keep applying pressure. documented in this encounter Miscellaneous Notes * Plan of Care - Rylee Baez RN - 03/24/2025 9:00 PM EST Problem: Knowledge Deficit Goal: Patient/patient retail sales representative demonstrates understanding of disease process, treatment plan,medications, and discharge instructions Description: INTERVENTIONS 1. Complete learning assessment and assess knowledge base 2. Provide teaching at level of understanding 3. Provide teaching via preferred learning method(s) Outcome: Not Progressing Note: Evaluation of progress towards goal: Pt edu on plan needs reinforcement Problem: Urinary Incontinence Goal: Perineal skin integrity is maintained or improved Description: INTERVENTIONS 1. Assess genitourinary system, perineal skin, labs (urinalysis), and history of incontinence to include past management, aggravating, and alleviating factors 2. Keep skin clean and dry 3. Apply skin protectant 4. Develop skin care regimen 5. Provide privacy when changing patients incontinence device to maintain their dignity 6. Consider placing an indwelling catheter 7. Collaborate with interdisciplinary team and initiate plans and interventions as needed Outcome: Not Progressing Note: Evaluation of progress towards goal: incontinent at times Problem: Pain Goal: Patient goal is pain score less than 4, able to rest, and participant in treatment plan as appropriate Description: INTERVENTIONS: 1. Encourage patient or legal retail sales representative to report early pain and ask for pain medicine when needed 2. Assess pain using appropriate pain scale and include the scale used when documenting 3. Administer analgesics based on type and severity of pain and evaluate response within appropriate time frame 4. Implement non-pharmacological measures as appropriate and evaluate response 5. Consider cultural and social influences on pain and pain management 6. Notify LIP if interventions ineffective or patient reports new pain 7. Monitor vital signs including pulse ox, end-tidal CO2 based on pain intervention 8. Reassess pain per policy 9. Teach patient or legal retail sales representative interventions for comforting Outcome: Progressing Note: Evaluation of progress towards goal: denies pain at this time reassess per policy Problem: Safety Goal: Patient will be injury free during hospitalization Description: INTERVENTIONS: 1. Assess patient's risk for falls and implement fall prevention plan of care per policy 2. Provide and maintain a safe environment 3. Proper use of double Identifiers 4. Medication administration using the 5 rights 5. Hand hygiene 6. Specimens are labeled at the bedside 7. Instruct patient/ patient retail sales representative about use of safety devices 8. Include patient/ patient retail sales representative in decisions related to safety Outcome: Progressing Note: Evaluation of progress towards goal: Patient injury free at current time Problem: Infection Goal: Absence of infection during hospitalization Description: INTERVENTIONS 1. Assess and monitor for signs and symptoms of infection. 2. Monitor lab/diagnostic results. 3. Monitor all insertion sites i.e., indwelling lines, tubes and drains. 4. Monitor endotracheal (as able) and nasal secretions for changes in amount and color. 5. Administer medications as ordered. 6. Instruct and encourage patient and family to use good hand hygiene technique. 7. Identify and instruct patient/patient retail sales representative in use of appropriate isolation precautionsfor identified infection/symptoms. 8. Provide and discuss with patient/patient retail sales representative on educational MDRO sheet. 9. Encourage and monitor nutritional status daily and consult sheet metal pattern cutter if indicated. 10. Implement neutropenic guidelines as needed. Outcome: Progressing Note: Evaluation of progress towards goal: No s/s of infection at this time Problem: Discharge Planning Goal: Discharge to post-acute care, other facility, or home with appropriate resources Description: Patient's goal is: INTERVENTIONS 1. Conduct assessment to determine patient/family and health care team treatment goals, and need for post-acute services based on payer coverage, community resources, and patient preferences, and barriers to discharge 2. Coordinate with Social work, Care Navigation, and Utilization Review to arrange appropriate level of services according to patient's needs based on patient preference and payer coverage in collaboration with the physician and health care team 3. Address psychosocial, clinical, and financial barriers to discharge as identified in assessment in conjunction with the patient/family and health care team 4. Consult appropriate ancillary services (i.e.. PT/OT/ST, etc) as needed 5. Communicate with and update the patient/family, physician, and health care team regarding progress on the discharge plan 6. Identify discharge learning needs (meds, wound care, etc). 7. Arrange for needed discharge transportation as appropriate Outcome: Progressing Note: Evaluation of progress towards goal: plan to d/c to SNF discharge orders in waiting on Transport Problem: Multi-Drug Resistant Organism / Rule-Out Infection Prevention Goal: Prevent transmission of infection Description: INTERVENTIONS 1. Place patient in private room or in room with patient with same disease 2. Discard single-use items 3. Clean reusable equipment between patients 4. Wear gloves for direct and indirect contact with patient or contaminants 5. Change gloves between tasks and procedures 6. Wash hands before and after caring for each patient 7. Wear appropriate personal protective equipment in relation to the indicated isolation type 8. Place appropriate isolation signage on patient's door 9. Provide patient/ patient retail sales representative with isolation education. Outcome: Progressing Note: Evaluation of progress towards goal: standard precautions Problem: Moderate - High Risk Fall Score Description: Pepe Anna Score of =/> 25 or indicated by [facility] Assessment Goal: Patient should be free from fall Description: Interventions: 1. [place] to environment 2. Hourly rounds addressing the 4 P's (Pain, Positioning, Possessions, Potty) 3. Clear area of hazards (spills, clutter, electrical cords, unnecessary equipment) 4. Place equipment (bed & TV controls, call light, phone, urinal) within reach 5. Encourage patient to wear glasses and hearing aides as appropriate 6. Maintain bed in lowest position 7. Lock wheels on bed/wheelchair 8. Provide adequate lighting, including night light 9. Assess need for additional bedding, food/fluids, pain med's prior to sleep/routinely 10. Provide gripper slippers or personal non-skid footwear 11. Teach patient and patient retail sales representative to maintain environment for safety and engage in all aspects of fall prevention program 12. Remind patient to call for help before getting out of bed 13. Initiate bed/chair/exit alarms supportive devices as appropriate, (chair wedge, no-skid floor mat, raised edge mattress, hip protectors) 14. Locate patient bed assignment for optimal visualization 15. Evaluate and identify Safe Patient Handling Equipment needs 16. Provide supervision when out of bed or chair 17. Utilize gait belt as needed to assist with ambulation 18. Place adaptive equipment (cane, walker) within reach 19. Request patient retail sales representative bring adaptive equipment/mobility aids from home or obtain and provide as needed 20. Consult pharmacy regarding effects of med's affecting mobility, cognition, and alternatives 21. Obtain physician order for PT if risk factors associated with mobility are present 22. Obtain physician order for OT as appropriate 23. Utilize diversional activities 24. Educate patient and patient retail sales representative how to maintain a safe environment during visitationtimes (notify nurse prior to leaving bedside) 25. Consider appropriateness of medical or non-medical record librarians teacher 26. Set up voiding schedule as appropriate (every 2 hours) Outcome: Progressing Note: Evaluation of progress towards goal: free from fall at this time Problem: Potential for Compromised Skin Integrity Goal: Skin integrity is maintained or improved Description: Patient's goal is: INTERVENTIONS 1. Perform initial skin assessment on admission and as needed 2. Turn patient every 2 hours and PRN 3. Relieve pressure to bony prominences 4. Avoid shearing 5. Keep skin clean and dry 6. Alternate a full bath with partial baths for elderly 7. Apply lotion/moisturizer on skin 8. Monitor patient's hygiene practices 9. Float heels 10. Collaborate with interdisciplinary team and initiate plans and interventions as needed Outcome: Progressing Note: Evaluation of progress towards goal: maintained Goal: Patient's nutritional intake is adequate Description: Patient's goal is: INTERVENTIONS 1. Assess and monitor food intake and supplements, patient food preferences, nausea, vomiting, labs, oral cavity (gums, teeth, tongue, mucosa), proper denture fit, and cultural beliefs 2. Monitor for signs of hypoglycemia and hyperglycemia 3. Collaborate with interdisciplinary team and initiate plan and interventions as ordered 4. Monitor patient's weight 5. Assist patient with meals/food selection 6. Assist patient with eating 7. Allow adequate time for meals 8. Provide pleasant environment during mealtime 9. Increase social contact during mealtimes 10. Plan activities to conserve energy 11. Encourage/perform oral hygiene as appropriate 12. Encourage patient to take dietary supplement as ordered 13. Collaborate with clinical sheet metal pattern cutter 14. Include patient/ patient's retail sales representative in decisions related to nutrition Outcome: Progressing Note: Evaluation of progress towards goal: adequate Problem: Neurological Deficit Goal: Neurological status is stable or improving Description: Patient's goal is: INTERVENTIONS 1. Complete Neurological assessment as indicated/ordered 2. Initiate measures to prevent increased intracranial pressure 3. Monitor and assess patient's level of consciousness, motor function, sensory function, and levelof assistance needed for ADLs 4. Monitor and report changes from baseline 5. Maintain blood pressure and fluid volume within ordered parameters to optimize cerebral perfusion and minimize risk of hemorrhage 6. Monitor labs and diagnostic tests 7. Administer anti-seizure medications as ordered 8. Maintain airway, patient safety and administer oxygen as ordered 9. Monitor patient for seizure activity, document and report duration and description of seizure toLIP 10. If seizure occurs, turn patient to side and suction secretions as needed 11. Reorient patient post seizure 12. Seizure pads on all 4 side rails 13. Instruct patient/family to notify RN of any seizure activity 14. Instruct patient/family to call for assistance with activity based on assessment 15. Utilize bleeding precautions if thrombolytic given Outcome: Progressing Note: Evaluation of progress towards goal: Stable with intermittent confusion Problem: Inadequate Breathing Pattern Goal: Patient will achieve/maintain normal respiratory rate/effort Description: Patient's goal is: INTERVENTIONS 1. Assess and monitor respiratory rate, effort, breathing pattern, and oxygenation 2. Monitor patient for restlessness, anxiety, air hunger 3. Assess physical activity tolerance 4. Assess tobacco history; ask, advise, and refer as appropriate 5. Collaborate with interdisciplinary team and initiate plans/interventions as needed Outcome: Progressing Note: Evaluation of progress towards goal: on RA * Discharge Planning Note - Everton Victor - 03/24/2025 3:44 PM EST DISCHARGE PLANNING NOTE BLS transport confirmed with PTN VIA ZOLL for 03/24/25 1800 to [facility] * Discharge Planning Note - Shama Higgins - 03/24/2025 3:30 PM EST DISCHARGE PLANNING NOTE CRF sent to [facility], [facility], [facility] in [place] (P# ; F# ) * Discharge Planning Note - Haylee Lazaro RN - 03/24/2025 12:21 PM EST Ongoing Assessment for Discharge Needs Reviewed discharge milestones and patient needs related to discharge plan. Current estimated discharge date of Mar 25, 2025 has been reviewed by treatment team. Ongoing Assessment for Discharge Needs Flowsheet Row Most Recent Value Referral To Community Referrals / Resources Provided Denies needs Services Requested Patient expects to be discharged to: [email or web address] Does the patient wish to have family/friend/caregiver involved in their discharge planning? Yes Does the patient plan to return home to a community setting? No, patient to discharge to facility-based provider. See Discharge Disposition Discharge Disposition Skilled Return Skilled Return Name [facility] Skilled Return Does the patient need discharge transportation arranged? Yes Transportation Arranged Ambulance Patient choice offered Other (comment) List Provided Other (comment) 3-Midnight Is SNF the current discharge plan for this Traditional/Orignal Medicare patient? Yes Did The Patient Complete A 3 Midnight Qualifying Inpatient Stay? Yes Per RN during discharge transition rounds, barriers to discharge are: IV dapto was completed on 03/23, HD today, repeat \vfss- passed Level 5 diet and Level 3 liquids / no straws, H&H every 12 hours, . Discharge Plan: SNF return to [facility]. [facility] admission has accepted patient to return this evening. No auth needed. Needs a neg COVID test at discharge. 2nd IMM given, patient is oriented and verbalized understanding. Requested transport per PTN BLS at 6pm today. CN called brother Reilly and left message re: discharge later today . DC CRF completed and faxed to SNF an [facility] tasked to send CRF on [facility]. Nurse report number given to bedside nurse. Transpprt packet completed. NO HENS needed. Hand Spring Repairer Helper will continue to follow for any discharge needs. 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 Complete learning assessment and assess knowledge base 2. Provide teaching at level of understanding 3. Provide teaching via preferred learning method(s) Outcome: Not Progressing Note: Evaluation of progress towards goal: minimal understanding from patient, no visitors Problem: Urinary Incontinence Goal: Perineal skin integrity is maintained or improved Description: INTERVENTIONS 1. Assess genitourinary system, perineal skin, labs (urinalysis), and history of incontinence to include past management, aggravating, and alleviating factors 2. Keep skin clean and dry 3. Apply skin protectant 4. Develop skin care regimen 5. Provide privacy when changing patients incontinence device to maintain their dignity 6. Consider placing an indwelling catheter 7. 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 Complete learning assessment and assess knowledge base 2. Provide teaching at level of understanding 3. Provide teaching via preferred learning method(s) Outcome: Not Progressing Note: Evaluation of progress towards goal: minimal understanding from patient, no visitors Problem: Urinary Incontinence Goal: Perineal skin integrity is maintained or improved Description: INTERVENTIONS 1. Assess genitourinary system, perineal skin, labs (urinalysis), and history of incontinence to include past management, aggravating, and alleviating factors 2. Keep skin clean and dry 3. Apply skin protectant 4. Develop skin care regimen 5. Provide privacy when changing patients incontinence device to maintain their dignity 6. Consider placing an indwelling catheter 7. Collaborate with interdisciplinary team and initiate plans and interventions as needed Outcome: Not Progressing Note: Evaluation of progress towards goal: uses urinal but incontinent at times Problem: Pain Goal: Patient goal is pain score less than 4, able to rest, and participant in treatment plan as appropriate Description: INTERVENTIONS: 1. Encourage patient or legal retail sales representative to report early pain and ask for pain medicine when needed 2. Assess pain using appropriate pain scale and include the scale used when documenting 3. Administer analgesics based on type and severity of pain and evaluate response within appropriate time frame 4. Implement non-pharmacological measures as appropriate and evaluate response 5. Consider cultural and social influences on pain and pain management 6. Notify LIP if interventions ineffective or patient reports new pain 7. Monitor vital signs including pulse ox, end-tidal CO2 based on pain intervention 8. Reassess pain per policy 9. Teach patient or legal retail sales representative interventions for comforting Outcome: Progressing Note: Evaluation of progress towards goal: denies pain, comfort measures maintained Problem: Safety Goal: Patient will be injury free during hospitalization Description: INTERVENTIONS: 1. Assess patient's risk for falls and implement fall prevention plan of care per policy 2. Provide and maintain a safe environment 3. Proper use of double Identifiers 4. Medication administration using the 5 rights 5. Hand hygiene 6. Specimens are labeled at the bedside 7. Instruct patient/ patient retail sales representative about use of safety devices 8. Include patient/ patient retail sales representative in decisions related to safety Outcome: Progressing Note: Evaluation of progress towards goal: injury free at this time, safety measures maintained Problem: Infection Goal: Absence of infection during hospitalization Description: INTERVENTIONS 1. Assess and monitor for signs and symptoms of infection. 2. Monitor lab/diagnostic results. 3. Monitor all insertion sites i.e., indwelling lines, tubes and drains. 4. Monitor endotracheal (as able) and nasal secretions for changes in amount and color. 5. Administer medications as ordered. 6. Instruct and encourage patient and family to use good hand hygiene technique. 7. Identify and instruct patient/patient retail sales representative in use of appropriate isolation precautionsfor identified infection/symptoms. 8. Provide and discuss with patient/patient retail sales representative on educational MDRO sheet. 9. Encourage and monitor nutritional status daily and consult sheet metal pattern cutter if indicated. 10. Implement neutropenic guidelines as needed. Outcome: Progressing Note: Evaluation of progress towards goal: monitor for signs of infection Problem: Discharge Planning Goal: Discharge to post-acute care, other facility, or home with appropriate resources Description: Patient's goal is: INTERVENTIONS 1. Conduct assessment to determine patient/family and health care team treatment goals, and need for post-acute services based on payer coverage, community resources, and patient preferences, and barriers to discharge 2. Coordinate with Social work, Care Navigation, and Utilization Review to arrange appropriate level of services according to patient's needs based on patient preference and payer coverage in collaboration with the physician and health care team 3. Address psychosocial, clinical, and financial barriers to discharge as identified in assessment in conjunction with the patient/family and health care team 4. Consult appropriate ancillary services (i.e.. PT/OT/ST, etc) as needed 5. Communicate with and update the patient/family, physician, and health care team regarding progress on the discharge plan 6. Identify discharge learning needs (meds, wound care, etc). 7. Arrange for needed discharge transportation as appropriate Outcome: Progressing Note: Evaluation of progress towards goal: in progress Problem: Multi-Drug Resistant Organism / Rule-Out Infection Prevention Goal: Prevent transmission of infection Description: INTERVENTIONS 1. Place patient in private room or in room with patient with same disease 2. Discard single-use items 3. Clean reusable equipment between patients 4. Wear gloves for direct and indirect contact with patient or contaminants 5. Change gloves between tasks and procedures 6. Wash hands before and after caring for each patient 7. Wear appropriate personal protective equipment in relation to the indicated isolation type 8. Place appropriate isolation signage on patient's door 9. Provide patient/ patient retail sales representative with isolation education. Outcome: Progressing Note: Evaluation of progress towards goal: monitor Problem: Moderate - High Risk Fall Score Description: Pepe Anna Score of =/> 25 or indicated by [facility] Assessment Goal: Patient should be free from fall Description: Interventions: 1. [place] to environment 2. Hourly rounds addressing the 4 P's (Pain, Positioning, Possessions, Potty) 3. Clear area of hazards (spills, clutter, electrical cords, unnecessary equipment) 4. Place equipment (bed & TV controls, call light, phone, urinal) within reach 5. Encourage patient to wear glasses and hearing aides as appropriate 6. Maintain bed in lowest position 7. Lock wheels on bed/wheelchair 8. Provide adequate lighting, including night light 9. Assess need for additional bedding, food/fluids, pain med's prior to sleep/routinely 10. Provide gripper slippers or personal non-skid footwear 11. Teach patient and patient retail sales representative to maintain environment for safety and engage in all aspects of fall prevention program 12. Remind patient to call for help before getting out of bed 13. Initiate bed/chair/exit alarms supportive devices as appropriate, (chair wedge, no-skid floor mat, raised edge mattress, hip protectors) 14. Locate patient bed assignment for optimal visualization 15. Evaluate and identify Safe Patient Handling Equipment needs 16. Provide supervision when out of bed or chair 17. Utilize gait belt as needed to assist with ambulation 18. Place adaptive equipment (cane, walker) within reach 19. Request patient retail sales representative bring adaptive equipment/mobility aids from home or obtain and provide as needed 20. Consult pharmacy regarding effects of med's affecting mobility, cognition, and alternatives 21. Obtain physician order for PT if risk factors associated with mobility are present 22. Obtain physician order for OT as appropriate 23. Utilize diversional activities 24. Educate patient and patient retail sales representative how to maintain a safe environment during visitationtimes (notify nurse prior to leaving bedside) 25. Consider appropriateness of medical or non-medical record librarians teacher 26. Set up voiding schedule as appropriate (every 2 hours) Outcome: Progressing Note: Evaluation of progress towards goal: free of fall this shift Problem: Potential for Compromised Skin Integrity Goal: Skin integrity is maintained or improved Description: Patient's goal is: INTERVENTIONS 1. Perform initial skin assessment on admission and as needed 2. Turn patient every 2 hours and PRN 3. Relieve pressure to bony prominences 4. Avoid shearing 5. Keep skin clean and dry 6. Alternate a full bath with partial baths for elderly 7. Apply lotion/moisturizer on skin 8. Monitor patient's hygiene practices 9. Float heels 10. Collaborate with interdisciplinary team and initiate plans and interventions as needed Outcome: Progressing Note: Evaluation of progress towards goal: buttocks excoriation less red and intact, [place] cream applied and turn every 2 hours Goal: Patient's nutritional intake is adequate Description: Patient's goal is: INTERVENTIONS 1. Assess and monitor food intake and supplements, patient food preferences, nausea, vomiting, labs, oral cavity (gums, teeth, tongue, mucosa), proper denture fit, and cultural beliefs 2. Monitor for signs of hypoglycemia and hyperglycemia 3. Collaborate with interdisciplinary team and initiate plan and interventions as ordered 4. Monitor patient's weight 5. Assist patient with meals/food selection 6. Assist patient with eating 7. Allow adequate time for meals 8. Provide pleasant environment during mealtime 9. Increase social contact during mealtimes 10. Plan activities to conserve energy 11. Encourage/perform oral hygiene as appropriate 12. Encourage patient to take dietary supplement as ordered 13. Collaborate with clinical sheet metal pattern cutter 14. Include patient/ patient's retail sales representative in decisions related to nutrition Outcome: Progressing Note: Evaluation of progress towards goal: good intake of pureed diet, video swallow today to assess for liquids Problem: Neurological Deficit Goal: Neurological status is stable or improving Description: Patient's goal is: INTERVENTIONS 1. Complete Neurological assessment as indicated/ordered 2. Initiate measures to prevent increased intracranial pressure 3. Monitor and assess patient's level of consciousness, motor function, sensory function, and levelof assistance needed for ADLs 4. Monitor and report changes from baseline 5. Maintain blood pressure and fluid volume within ordered parameters to optimize cerebral perfusion and minimize risk of hemorrhage 6. Monitor labs and diagnostic tests 7. Administer anti-seizure medications as ordered 8. Maintain airway, patient safety and administer oxygen as ordered 9. Monitor patient for seizure activity, document and report duration and description of seizure toLIP 10. If seizure occurs, turn patient to side and suction secretions as needed 11. Reorient patient post seizure 12. Seizure pads on all 4 side rails 13. Instruct patient/family to notify RN of any seizure activity 14. Instruct patient/family to call for assistance with activity based on assessment 15. Utilize bleeding precautions if thrombolytic given Outcome: Progressing Note: Evaluation of progress towards goal: neuro checks unchanged Problem: Inadequate Breathing Pattern Goal: Patient will achieve/maintain normal respiratory rate/effort Description: Patient's goal is: INTERVENTIONS 1. Assess and monitor respiratory rate, effort, breathing pattern, and oxygenation 2. Monitor patient for restlessness, anxiety, air hunger 3. Assess physical activity tolerance 4. Assess tobacco history; ask, advise, and refer as appropriate 5. Collaborate with interdisciplinary team and initiate plans/interventions as needed Outcome: Progressing Note: Evaluation of progress towards goal: room air with adequate oxygen saturation Problem: Pain Goal: Patient goal is pain score less than 4, able to rest, and participant in treatment plan as appropriate Description: INTERVENTIONS: 1. Encourage patient or legal retail sales representative to report early pain and ask for pain medicine when needed 2. Assess pain using appropriate pain scale and include the scale used when documenting 3. Administer analgesics based on type and severity of pain and evaluate response within appropriate time frame 4. Implement non-pharmacological measures as appropriate and evaluate response 5. Consider cultural and social influences on pain and pain management 6. Notify LIP if interventions ineffective or patient reports new pain 7. Monitor vital signs including pulse ox, end-tidal CO2 based on pain intervention 8. Reassess pain per policy 9. Teach patient or legal retail sales representative interventions for comforting Outcome: Progressing Note: Evaluation of progress towards goal: denies pain, comfort measures maintained Problem: Safety Goal: Patient will be injury free during hospitalization Description: INTERVENTIONS: 1. Assess patient's risk for falls and implement fall prevention plan of care per policy 2. Provide and maintain a safe environment 3. Proper use of double Identifiers 4. Medication administration using the 5 rights 5. Hand hygiene 6. Specimens are labeled at the bedside 7. Instruct patient/ patient retail sales representative about use of safety devices 8. Include patient/ patient retail sales representative in decisions related to safety Outcome: Progressing Note: Evaluation of progress towards goal: injury free at this time, safety measures maintained Problem: Infection Goal: Absence of infection during hospitalization Description: INTERVENTIONS 1. Assess and monitor for signs and symptoms of infection. 2. Monitor lab/diagnostic results. 3. Monitor all insertion sites i.e., indwelling lines, tubes and drains. 4. Monitor endotracheal (as able) and nasal secretions for changes in amount and color. 5. Administer medications as ordered. 6. Instruct and encourage patient and family to use good hand hygiene technique. 7. Identify and instruct patient/patient retail sales representative in use of appropriate isolation precautionsfor identified infection/symptoms. 8. Provide and discuss with patient/patient retail sales representative on educational MDRO sheet. 9. Encourage and monitor nutritional status daily and consult sheet metal pattern cutter if indicated. 10. Implement neutropenic guidelines as needed. Outcome: Progressing Note: Evaluation of progress towards goal: monitor for signs of infection Problem: Discharge Planning Goal: Discharge to post-acute care, other facility, or home with appropriate resources Description: Patient's goal is: INTERVENTIONS 1. Conduct assessment to determine patient/family and health care team treatment goals, and need for post-acute services based on payer coverage, community resources, and patient preferences, and barriers to discharge 2. Coordinate with Social work, Care Navigation, and Utilization Review to arrange appropriate level of services according to patient's needs based on patient preference and payer coverage in collaboration with the physician and health care team 3. Address psychosocial, clinical, and financial barriers to discharge as identified in assessment in conjunction with the patient/family and health care team 4. Consult appropriate ancillary services (i.e.. PT/OT/ST, etc) as needed 5. Communicate with and update the patient/family, physician, and health care team regarding progress on the discharge plan 6. Identify discharge learning needs (meds, wound care, etc). 7. Arrange for needed discharge transportation as appropriate Outcome: Progressing Note: Evaluation of progress towards goal: in progress Problem: Multi-Drug Resistant Organism / Rule-Out Infection Prevention Goal: Prevent transmission of infection Description: INTERVENTIONS 1. Place patient in private room or in room with patient with same disease 2. Discard single-use items 3. Clean reusable equipment between patients 4. Wear gloves for direct and indirect contact with patient or contaminants 5. Change gloves between tasks and procedures 6. Wash hands before and after caring for each patient 7. Wear appropriate personal protective equipment in relation to the indicated isolation type 8. Place appropriate isolation signage on patient's door 9. Provide patient/ patient retail sales representative with isolation education. Outcome: Progressing Note: Evaluation of progress towards goal: monitor Problem: Moderate - High Risk Fall Score Description: Pepe Anna Score of =/> 25 or indicated by [facility] Assessment Goal: Patient should be free from fall Description: Interventions: 1. [place] to environment 2. Hourly rounds addressing the 4 P's (Pain, Positioning, Possessions, Potty) 3. Clear area of hazards (spills, clutter, electrical cords, unnecessary equipment) 4. Place equipment (bed & TV controls, call light, phone, urinal) within reach 5. Encourage patient to wear glasses and hearing aides as appropriate 6. Maintain bed in lowest position 7. Lock wheels on bed/wheelchair 8. Provide adequate lighting, including night light 9. Assess need for additional bedding, food/fluids, pain med's prior to sleep/routinely 10. Provide gripper slippers or personal non-skid footwear 11. Teach patient and patient retail sales representative to maintain environment for safety and engage in all aspects of fall prevention program 12. Remind patient to call for help before getting out of bed 13. Initiate bed/chair/exit alarms supportive devices as appropriate, (chair wedge, no-skid floor mat, raised edge mattress, hip protectors) 14. Locate patient bed assignment for optimal visualization 15. Evaluate and identify Safe Patient Handling Equipment needs 16. Provide supervision when out of bed or chair 17. Utilize gait belt as needed to assist with ambulation 18. Place adaptive equipment (cane, walker) within reach 19. Request patient retail sales representative bring adaptive equipment/mobility aids from home or obtain and provide as needed 20. Consult pharmacy regarding effects of med's affecting mobility, cognition, and alternatives 21. Obtain physician order for PT if risk factors associated with mobility are present 22. Obtain physician order for OT as appropriate 23. Utilize diversional activities 24. Educate patient and patient retail sales representative how to maintain a safe environment during visitationtimes (notify nurse prior to leaving bedside) 25. Consider appropriateness of medical or non-medical record librarians teacher 26. Set up voiding schedule as appropriate (every 2 hours) Outcome: Progressing Note: Evaluation of progress towards goal: free of fall this shift Problem: Potential for Compromised Skin Integrity Goal: Skin integrity is maintained or improved Description: Patient's goal is: INTERVENTIONS 1. Perform initial skin assessment on admission and as needed 2. Turn patient every 2 hours and PRN 3. Relieve pressure to bony prominences 4. Avoid shearing 5. Keep skin clean and dry 6. Alternate a full bath with partial baths for elderly 7. Apply lotion/moisturizer on skin 8. Monitor patient's hygiene practices 9. Float heels 10. Collaborate with interdisciplinary team and initiate plans and interventions as needed Outcome: Progressing Note: Evaluation of progress towards goal: buttocks excoriation less red and intact, Triad cream applied and turn every 2 hours Problem: Potential for Compromised Skin Integrity Goal: Patient's nutritional intake is adequate Description: Patient's goal is: INTERVENTIONS 1. Assess and monitor food intake and supplements, patient food preferences, nausea, vomiting, labs, oral cavity (gums, teeth, tongue, mucosa), proper denture fit, and cultural beliefs 2. Monitor for signs of hypoglycemia and hyperglycemia 3. Collaborate with interdisciplinary team and initiate plan and interventions as ordered 4. Monitor patient's weight 5. Assist patient with meals/food selection 6. Assist patient with eating 7. Allow adequate time for meals 8. Provide pleasant environment during mealtime 9. Increase social contact during mealtimes 10. Plan activities to conserve energy 11. Encourage/perform oral hygiene as appropriate 12. Encourage patient to take dietary supplement as ordered 13. Collaborate with clinical sheet metal pattern cutter 14. Include patient/ patient's retail sales representative in decisions related to nutrition Outcome: Progressing Note: Evaluation of progress towards goal: good intake of pureed diet, video swallow today to assess for liquids Problem: Neurological Deficit Goal: Neurological status is stable or improving Description: Patient's goal is: INTERVENTIONS 1. Complete Neurological assessment as indicated/ordered 2. Initiate measures to prevent increased intracranial pressure 3. Monitor and assess patient's level of consciousness, motor function, sensory function, and levelof assistance needed for ADLs 4. Monitor and report changes from baseline 5. Maintain blood pressure and fluid volume within ordered parameters to optimize cerebral perfusion and minimize risk of hemorrhage 6. Monitor labs and diagnostic tests 7. Administer anti-seizure medications as ordered 8. Maintain airway, patient safety and administer oxygen as ordered 9. Monitor patient for seizure activity, document and report duration and description of seizure toLIP 10. If seizure occurs, turn patient to side and suction secretions as needed 11. Reorient patient post seizure 12. Seizure pads on all 4 side rails 13. Instruct patient/family to notify RN of any seizure activity 14. Instruct patient/family to call for assistance with activity based on assessment 15. Utilize bleeding precautions if thrombolytic given Outcome: Progressing Note: Evaluation of progress towards goal: neuro checks unchanged Problem: Inadequate Breathing Pattern Goal: Patient will achieve/maintain normal respiratory rate/effort Description: Patient's goal is: INTERVENTIONS 1. Assess and monitor respiratory rate, effort, breathing pattern, and oxygenation 2. Monitor patient for restlessness, anxiety, air hunger 3. Assess physical activity tolerance 4. Assess tobacco history; ask, advise, and refer as appropriate 5. Collaborate with interdisciplinary team and initiate plans/interventions as needed Outcome: Progressing Note: Evaluation of progress towards goal: room air with adequate oxygen saturation Problem: Glucose Imbalance Goal: Patient's discharge needs are met Description: Patient's goal is: INTERVENTIONS 1. Assess patient for self-management skills 2. Encourage participation in diabetes management 3. Identify potential discharge barriers on admission and throughout hospital stay 4. Involve patient/S.O. in discharge planning process 5. Communicate referral to paraeducator as appropriate 6. Communicate referral to sheet metal pattern cutter as appropriate 7. Collaborate with case management/social service agency director for discharge needs Outcome: Completed Note: Evaluation of progress towards goal: not checking/ordered Problem: Glucose Imbalance Goal: Patient's discharge needs are met Description: Patient's goal is: INTERVENTIONS 1. Assess patient for self-management skills 2. Encourage participation in diabetes management 3. Identify potential discharge barriers on admission and throughout hospital stay 4. Involve patient/S.O. in discharge planning process 5. Communicate referral to paraeducator as appropriate 6. Communicate referral to sheet metal pattern cutter as appropriate 7. Collaborate with case management/social service agency director for discharge needs Outcome: Completed Note: Evaluation of progress towards goal: not checking/ordered * PROPRIETARY TRADER Procedure Note - Magaly Lemus CCC-MILKA - 03/24/2025 10:52 AM EST Speech Therapy Videofluoroscopic Swallow Study Evaluation and Treatment Note Discharge Recommendations for Safe Patient Transition PROPRIETARY TRADER Therapy Recommendations: Continue ST services Recommendations Diet Level: Level 5 Minced and Moist Liquid Level: Level 3 Moderately Thick (NO STRAWS!) Alternate Means Of:: Hydration Compensatory Strategies: Small sips/bites, One sip/bite at a time, No straws, Follow aspiration precautions Supervision/Positioning: Patient at 90 degrees for all PO intake (including medication), Patient toremain upright 15 minutes after meals, Assist with feeding, Cue patient to use compensatory strategies Medications: In applesauce/puree, Crushed Referrals: Dysphagia therapy, Ticket Scheduler Impressions Oral Phase: Moderate Pharyngeal Phase: Moderate Functional Oral Intake Scale: Total PO with multiple consistencies requiring special prep Plan Frequency: 2-3days/week Duration: Until discharge Treatments/Modalities: Safety strategies, Oral motor treatment plan, Pharyngeal strengthening Need for skilled Speech Language Pathology Services to address deficits in feeding/swallowing due to a status decline resulting from sepsis with encephalopathy. Educated pt on purpose of exam, contrast administration, and procedural technique prior to initiation of exam. Pt educated on diet recommen dations, plan of care, and encouraged to use safety strategies in order to maintain safe PO intake following exam. Will continue to follow along. Prognosis Services: Skilled PROPRIETARY TRADER services to address above deficits Prognosis/Potential: Good Considerations: Age, Ability to learn, Previous level of function Assessment Baseline Assessment Additional Testing Results: Chest X-Ray, Computed Tomography Temperature Spikes Noted: No Behavior/Cognition: Alert, Cooperative Dentition: Edentulous Vision: Functional for self-feeding Patient Positioning: Upright in bed Laryngectomy: No Ability to Control Secretions: Yes Allergies Marked As Reviewed: Complete Consistencies Tested Views: Lateral position Level 0 Thin: Spoon, Cup, Straw Level 2 Mildly Thick: Cup, Straw Level 3 Moderately Thick: Cup, Straw Level 4 Pureed: Spoon Level 6 Soft & Bite-Sized: Spoon Regular Tested: Bite Modified Barium Swallow Impairment Profile (MBSImP) Oral Impairment: Yes Component 1: Lip Closure: interlabial escape, no progression to anterior lip Component 2: Tongue Control During Bolus Hold: posterior escape of less than half of bolus Component 3: Bolus Preparation/Mastication: disorganized chewing/mashing with solid pieces of bolusunchewed Component 4: Bolus Transport/Lingual Motion: repetitive/disorganized tongue motion Component 5: Oral Residue: residue collection on oral structures Component 6: Initiation of Pharyngeal Swallow: bolus head in pyriforms Pharyngeal Impairment: Yes Component 7: Soft Palate Elevation: no bolus between soft palate/posterior pharyngeal wall Component 8: Laryngeal Elevation: partial superior movement of thyroid cartilage/partial approximation of arytenoids to epiglottic petiole Component 9: Anterior Hyoid Excursion: partial anterior movement Component 10: Epiglottic Movement: partial inversion Component 11: Laryngeal Vestibular Closure - Height of the Swallow: incomplete, narrow column of contrast/air in laryngeal vestibule Component 12: Pharyngeal Stripping Wave: present - diminished Component 13: Pharyngeal Contraction (A/P view only): could not be determined due to logistical reasons not related to physiologic impairment Component 14: Pharyngoesophageal Segment Opening: minimal distension/minimal duration, marked obstruction of flow Component 15: Tongue Base Retraction: narrow column of contrast/air between tongue base and posterior pharyngeal wall Component 16: Pharyngeal Residue: collection of residue within or on pharyngeal structures Esophageal Impairment: Yes Component 17: Esophageal Clearance in Upright Position: could not be determined due to logistical reasons not related to physiologic impairment MBSImP Overall Impression Scores Oral Impairment Total: 13 Pharyngeal Impairment Total: 11 Esophageal Impairment Total: 0 Penetration/Aspiration Scale Penetration/Aspiration Scale Performed: Yes Level 0 Thin: Contrast entered the airway, passed below the vocal folds, and no effort was made to eject Level 2 Mildly Thick: Contrast entered the airway, passed below the vocal folds, and no effort was made to eject Level 3 Moderately Thick: Contrast did not enter the airway Level 4 Pureed: Contrast did not enter the airway Level 6 Soft & Bite-Sized: Contrast did not enter the airway Regular: Contrast did not enter the airway Trialed Compensatory Strategies Strategies Utilized: Small sips/bites, Double swallow, Volitional cough, Controlled bolus Effective: No Pain Assessment Pain Assessment: No/denies pain Plan Diagnosis Code Swallowing: R13.12 Dysphagia, oropharyngeal phase Speech Therapy Care Plan Speech Therapy Care Plan (Active) Template: ST - Dysphagia Problem: Swallowing Dates: Start: 03/17/25 Disciplines: PROPRIETARY TRADER Goal: LTG: Patient will maintain adequate nutrition/ hydration with optimum safety and efficiency of swallowing function of oral intake without overt signs/symptoms of aspiration for the highest appropriate diet level Dates: Start: 03/17/25 Expected End: 04/17/25 Disciplines: PROPRIETARY TRADER Outcomes Date/Time User Outcome 03/24/25 1116 NEVAEH AlcocerPROPRIETARY TRADER Progressing 03/19/25 1027 CHARLES Bhatti Progressing Goal: STG: Patient will complete safety strategies with minimal assistance during PO intake 90% of the time Dates: Start: 03/17/25 Expected End: 04/17/25 Disciplines: PROPRIETARY TRADER Outcomes Date/Time User Outcome 03/19/25 1027 Tatiana Orlando, CCC-PROPRIETARY TRADER Progressing Speech Therapy Care Plan (Resolved) There are no resolved problems. Principal Problem: Sepsis with encephalopathy and septic shock, due to unspecified organism ([facility]) * Plan of Care - Rylee Baez RN - 03/23/2025 8:34 PM EST Problem: Pain Goal: Patient goal is pain score less than 4, able to rest, and participant in treatment plan as appropriate Description: INTERVENTIONS: 1. Encourage patient or legal retail sales representative to report early pain and ask for pain medicine when needed 2. Assess pain using appropriate pain scale and include the scale used when documenting 3. Administer analgesics based on type and severity of pain and evaluate response within appropriate time frame 4. Implement non-pharmacological measures as appropriate and evaluate response 5. Consider cultural and social influences on pain and pain management 6. Notify LIP if interventions ineffective or patient reports new pain 7. Monitor vital signs including pulse ox, end-tidal CO2 based on pain intervention 8. Reassess pain per policy 9. Teach patient or legal retail sales representative interventions for comforting Outcome: Progressing Note: Evaluation of progress towards goal: denies pain at this time reassess per policy Problem: Safety Goal: Patient will be injury free during hospitalization Description: INTERVENTIONS: 1. Assess patient's risk for falls and implement fall prevention plan of care per policy 2. Provide and maintain a safe environment 3. Proper use of double Identifiers 4. Medication administration using the 5 rights 5. Hand hygiene 6. Specimens are labeled at the bedside 7. Instruct patient/ patient retail sales representative about use of safety devices 8. Include patient/ patient retail sales representative in decisions related to safety Outcome: Progressing Note: Evaluation of progress towards goal: Patient injury free at current time Problem: Infection Goal: Absence of infection during hospitalization Description: INTERVENTIONS 1. Assess and monitor for signs and symptoms of infection. 2. Monitor lab/diagnostic results. 3. Monitor all insertion sites i.e., indwelling lines, tubes and drains. 4. Monitor endotracheal (as able) and nasal secretions for changes in amount and color. 5. Administer medications as ordered. 6. Instruct and encourage patient and family to use good hand hygiene technique. 7. Identify and instruct patient/patient retail sales representative in use of appropriate isolation precautionsfor identified infection/symptoms. 8. Provide and discuss with patient/patient retail sales representative on educational MDRO sheet. 9. Encourage and monitor nutritional status daily and consult sheet metal pattern cutter if indicated. 10. Implement neutropenic guidelines as needed. Outcome: Progressing Note: Evaluation of progress towards goal: on HERMILA no signs of infection Problem: Knowledge Deficit Goal: Patient/patient retail sales representative demonstrates understanding of disease process, treatment plan,medications, and discharge instructions Description: INTERVENTIONS 1. Complete learning assessment and assess knowledge base 2. Provide teaching at level of understanding 3. Provide teaching via preferred learning method(s) Outcome: Progressing Note: Evaluation of progress towards goal: Pt edu on plan reinforcement needed Problem: Discharge Planning Goal: Discharge to post-acute care, other facility, or home with appropriate resources Description: Patient's goal is: INTERVENTIONS 1. Conduct assessment to determine patient/family and health care team treatment goals, and need for post-acute services based on payer coverage, community resources, and patient preferences, and barriers to discharge 2. Coordinate with Social work, Care Navigation, and Utilization Review to arrange appropriate level of services according to patient's needs based on patient preference and payer coverage in collaboration with the physician and health care team 3. Address psychosocial, clinical, and financial barriers to discharge as identified in assessment in conjunction with the patient/family and health care team 4. Consult appropriate ancillary services (i.e.. PT/OT/ST, etc) as needed 5. Communicate with and update the patient/family, physician, and health care team regarding progress on the discharge plan 6. Identify discharge learning needs (meds, wound care, etc). 7. Arrange for needed discharge transportation as appropriate Outcome: Progressing Note: Evaluation of progress towards goal: in progress Problem: Glucose Imbalance Goal: Patient's discharge needs are met Description: Patient's goal is: INTERVENTIONS 1. Assess patient for self-management skills 2. Encourage participation in diabetes management 3. Identify potential discharge barriers on admission and throughout hospital stay 4. Involve patient/S.O. in discharge planning process 5. Communicate referral to paraeducator as appropriate 6. Communicate referral to sheet metal pattern cutter as appropriate 7. Collaborate with case management/social service agency director for discharge needs Outcome: Progressing Note: Evaluation of progress towards goal: in progress Problem: Multi-Drug Resistant Organism / Rule-Out Infection Prevention Goal: Prevent transmission of infection Description: INTERVENTIONS 1. Place patient in private room or in room with patient with same disease 2. Discard single-use items 3. Clean reusable equipment between patients 4. Wear gloves for direct and indirect contact with patient or contaminants 5. Change gloves between tasks and procedures 6. Wash hands before and after caring for each patient 7. Wear appropriate personal protective equipment in relation to the indicated isolation type 8. Place appropriate isolation signage on patient's door 9. Provide patient/ patient retail sales representative with isolation education. Outcome: Progressing Note: Evaluation of progress towards goal: standard precautions Problem: Moderate - High Risk Fall Score Description: Pepe Anna Score of =/> 25 [facility] Goal: Patient should be free from fall Description: Interventions: 1. [place] to environment 2. Hourly rounds addressing the 4 P's (Pain, Positioning, Possessions, Potty) 3. Clear area of hazards (spills, clutter, electrical cords, unnecessary equipment) 4. Place equipment (bed & TV controls, call light, phone, urinal) within reach 5. Encourage patient to wear glasses and hearing aides as appropriate 6. Maintain bed in lowest position 7. Lock wheels on bed/wheelchair 8. Provide adequate lighting, including night light 9. Assess need for additional bedding, food/fluids, pain med's prior to sleep/routinely 10. Provide gripper slippers or personal non-skid footwear 11. Teach patient and patient retail sales representative to maintain environment for safety and engage in all aspects of fall prevention program 12. Remind patient to call for help before getting out of bed 13. Initiate bed/chair/exit alarms supportive devices as appropriate, (chair wedge, no-skid floor mat, raised edge mattress, hip protectors) 14. Locate patient bed assignment for optimal visualization 15. Evaluate and identify Safe Patient Handling Equipment needs 16. Provide supervision when out of bed or chair 17. Utilize gait belt as needed to assist with ambulation 18. Place adaptive equipment (cane, walker) within reach 19. Request patient retail sales representative bring adaptive equipment/mobility aids from home or obtain and provide as needed 20. Consult pharmacy regarding effects of med's affecting mobility, cognition, and alternatives 21. Obtain physician order for PT if risk factors associated with mobility are present 22. Obtain physician order for OT as appropriate 23. Utilize diversional activities 24. Educate patient and patient retail sales representative how to maintain a safe environment during visitationtimes (notify nurse prior to leaving bedside) 25. Consider appropriateness of medical or non-medical record librarians teacher 26. Set up voiding schedule as appropriate (every 2 hours) Outcome: Progressing Note: Evaluation of progress towards goal: free from fall at this time safety precautions in place Problem: Potential for Compromised Skin Integrity Goal: Skin integrity is maintained or improved Description: Patient's goal is: INTERVENTIONS 1. Perform initial skin assessment on admission and as needed 2. Turn patient every 2 hours and PRN 3. Relieve pressure to bony prominences 4. Avoid shearing 5. Keep skin clean and dry 6. Alternate a full bath with partial baths for elderly 7. Apply lotion/moisturizer on skin 8. Monitor patient's hygiene practices 9. Float heels 10. Collaborate with interdisciplinary team and initiate plans and interventions as needed Outcome: Progressing Note: Evaluation of progress towards goal: maintained Goal: Patient's nutritional intake is adequate Description: Patient's goal is: INTERVENTIONS 1. Assess and monitor food intake and supplements, patient food preferences, nausea, vomiting, labs, oral cavity (gums, teeth, tongue, mucosa), proper denture fit, and cultural beliefs 2. Monitor for signs of hypoglycemia and hyperglycemia 3. Collaborate with interdisciplinary team and initiate plan and interventions as ordered 4. Monitor patient's weight 5. Assist patient with meals/food selection 6. Assist patient with eating 7. Allow adequate time for meals 8. Provide pleasant environment during mealtime 9. Increase social contact during mealtimes 10. Plan activities to conserve energy 11. Encourage/perform oral hygiene as appropriate 12. Encourage patient to take dietary supplement as ordered 13. Collaborate with clinical sheet metal pattern cutter 14. Include patient/ patient's retail sales representative in decisions related to nutrition Outcome: Progressing Note: Evaluation of progress towards goal: adequate Problem: Urinary Incontinence Goal: Perineal skin integrity is maintained or improved Description: INTERVENTIONS 1. Assess genitourinary system, perineal skin, labs (urinalysis), and history of incontinence to include past management, aggravating, and alleviating factors 2. Keep skin clean and dry 3. Apply skin protectant 4. Develop skin care regimen 5. Provide privacy when changing patients incontinence device to maintain their dignity 6. Consider placing an indwelling catheter 7. Collaborate with interdisciplinary team and initiate plans and interventions as needed Outcome: Progressing Note: Evaluation of progress towards goal: perineal skin integrity maintained Problem: Neurological Deficit Goal: Neurological status is stable or improving Description: Patient's goal is: INTERVENTIONS 1. Complete Neurological assessment as indicated/ordered 2. Initiate measures to prevent increased intracranial pressure 3. Monitor and assess patient's level of consciousness, motor function, sensory function, and levelof assistance needed for ADLs 4. Monitor and report changes from baseline 5. Maintain blood pressure and fluid volume within ordered parameters to optimize cerebral perfusion and minimize risk of hemorrhage 6. Monitor labs and diagnostic tests 7. Administer anti-seizure medications as ordered 8. Maintain airway, patient safety and administer oxygen as ordered 9. Monitor patient for seizure activity, document and report duration and description of seizure toLIP 10. If seizure occurs, turn patient to side and suction secretions as needed 11. Reorient patient post seizure 12. Seizure pads on all 4 side rails 13. Instruct patient/family to notify RN of any seizure activity 14. Instruct patient/family to call for assistance with activity based on assessment 15. Utilize bleeding precautions if thrombolytic given Outcome: Progressing Note: Evaluation of progress towards goal: neuro status stable patient has intermittent confusion * Plan of Care - Patricia Brizuela RCP - 03/23/2025 8:11 PM EST Problem: Inadequate Breathing Pattern Goal: Patient will achieve/maintain normal respiratory rate/effort Description: Patient's goal is: INTERVENTIONS 1. Assess and monitor respiratory rate, effort, breathing pattern, and oxygenation 2. Monitor patient for restlessness, anxiety, air hunger 3. Assess physical activity tolerance 4. Assess tobacco history; ask, advise, and refer as appropriate 5. Collaborate with interdisciplinary team and initiate plans/interventions as needed Outcome: Progressing Note: Evaluation of progress towards goal: RT to continue with therapy and treatments. * Discharge Planning Note - Aurelia Dewey - 03/23/2025 3:25 PM EST DISCHARGE PLANNING NOTE Clinical updates sent to [facility], [facility] in [place] (P# ; F# ) * Plan of Care - Jonathon Benedict RCP - 03/23/2025 1:12 PM EST Respiratory Therapy Clinical Practice Guidelines Consult Vital Signs Pulse: 79 Resp: (!) 26 SpO2: 100 % O2 Device: None (Room air) Patient Position: Semi-fowlers Respiratory Assessment Assessment Type: Pre-treatment Level of Consciousness: Alert Respiratory Pattern: Regular Chest Assessment: Chest expansion symmetrical Bilateral Breath Sounds: Clear Patient Active Problem List Diagnosis Has a tremor Atrial fibrillation, chronic ([facility]) Type 2 diabetes mellitus with hyperglycemia ([facility]) Chronic obstructive pulmonary disease ([facility]) Acute systolic (congestive) heart failure ([facility]) End stage renal disease ([facility]) Sepsis with encephalopathy and septic shock, due to unspecified organism ([facility]) Last Chest XRAY: Reviewed Pulmonary History: See above RT Reassessment Due In: 24 hours Bronchodilator Respiratory Rate Home Therapy: Patient baseline Dyspnea Home Therapy: Patient Baseline Breath Sounds Home Therapy: Patient Baseline Respiratory History Home Therapy: Requires home therapy Oxygen to Keep SpO2 Greater Than Or Equal To 92% Home Therapy: Patient Baseline Peak Flow ([facility] Only) Home Therapy: Not Applicable Patients Current Level & Intervention: Home Therapy As at home, reconcile orders with home medsif pulmonary status is stable * Discharge Planning Note - Haylee Lazaro RN - 03/23/2025 12:29 PM EST Ongoing Assessment for Discharge Needs Reviewed discharge milestones and patient needs related to discharge plan. Current estimated discharge date of Mar 25, 2025 has been reviewed by treatment team. Ongoing Assessment for Discharge Needs Flowsheet Row Most Recent Value Referral To Community Referrals / Resources Provided Denies needs Services Requested [facility]: [facility] Does the patient wish to have family/friend/caregiver involved in their discharge planning? Yes Does the patient plan to return home to a community setting? No, patient to discharge to facility-based provider. See Discharge Disposition Discharge Disposition Skilled Return Skilled Return Name [facility] Skilled Return Skilled Return Does the patient need discharge transportation arranged? Yes Transportation Arranged Ambulance Patient choice offered Other (comment) List Provided Other (comment) 3-Midnight Is SNF the current discharge plan for this Traditional/Orignal Medicare patient? Yes Did The Patient Complete A 3 Midnight Qualifying Inpatient Stay? Yes Per RN during discharge transition rounds, barriers to discharge are: IV dapto , IV meropenem, GI bleed, GI following, monitoring Hgb, H&H every 12 hrs, repeat vfss, IV protonix, has right IJ, PT/OT, palliative follow up. Discharge Plan: SN[facility]. No auth needed. Patient refused dialysis today and morning medications. Updates tasked to [facility] Hand Spring Repairer Helper will continue to follow for any discharge needs. - Haylee Lazaro RN 03/23/25 12:32 PM * Plan of Care - Parrish Fallon RN - 03/23/2025 10:29 AM EST Problem: Pain Goal: Patient goal is pain score less than 4, able to rest, and participant in treatment plan as appropriate Description: INTERVENTIONS: 1. Encourage patient or legal retail sales representative to report early pain and ask for pain medicine when needed 2. Assess pain using appropriate pain scale and include the scale used when documenting 3. Administer analgesics based on type and severity of pain and evaluate response within appropriate time frame 4. Implement non-pharmacological measures as appropriate and evaluate response 5. Consider cultural and social influences on pain and pain management 6. Notify LIP if interventions ineffective or patient reports new pain 7. Monitor vital signs including pulse ox, end-tidal CO2 based on pain intervention 8. Reassess pain per policy 9. Teach patient or legal retail sales representative interventions for comforting Outcome: Progressing Note: Evaluation of progress towards goal: after one & half hour patient pain have decreased / after intervention patient comfortable during hospitalization - continue to monitor Problem: Safety Goal: Patient will be injury free during hospitalization Description: INTERVENTIONS: 1. Assess patient's risk for falls and implement fall prevention plan of care per policy 2. Provide and maintain a safe environment 3. Proper use of double Identifiers 4. Medication administration using the 5 rights 5. Hand hygiene 6. Specimens are labeled at the bedside 7. Instruct patient/ patient retail sales representative about use of safety devices 8. Include patient/ patient retail sales representative in decisions related to safety Outcome: Progressing Note: Evaluation of progress towards goal: After Hourly rounding / proper nsg interventions pt is maintained free / reduced risk for injury; safety is ensured - continue to monitor Problem: Infection Goal: Absence of infection during hospitalization Description: INTERVENTIONS 1. Assess and monitor for signs and symptoms of infection. 2. Monitor lab/diagnostic results. 3. Monitor all insertion sites i.e., indwelling lines, tubes and drains. 4. Monitor endotracheal (as able) and nasal secretions for changes in amount and color. 5. Administer medications as ordered. 6. Instruct and encourage patient and family to use good hand hygiene technique. 7. Identify and instruct patient/patient retail sales representative in use of appropriate isolation precautionsfor identified infection/symptoms. 8. Provide and discuss with patient/patient retail sales representative on educational MDRO sheet. 9. Encourage and monitor nutritional status daily and consult sheet metal pattern cutter if indicated. 10. Implement neutropenic guidelines as needed. Outcome: Progressing Note: Evaluation of progress towards goal: remain free of infection processes, such as elevated temp or drainage from surgical sites(if applicable) or acces sites; demonstrates measures to prevent infection, recognizes s/s, wbc remains wnl - continue to monitor Problem: Knowledge Deficit Goal: Patient/patient retail sales representative demonstrates understanding of disease process, treatment plan,medications, and discharge instructions Description: INTERVENTIONS 1. Complete learning assessment and assess knowledge base 2. Provide teaching at level of understanding 3. Provide teaching via preferred learning method(s) Outcome: Progressing Note: Evaluation of progress towards goal: patient will perform newly learned task safely and correctly during hospitalization and by discharge - continue to re educate / teach about his / her condition. Problem: Glucose Imbalance Goal: Patient's discharge needs are met Description: Patient's goal is: INTERVENTIONS 1. Assess patient for self-management skills 2. Encourage participation in diabetes management 3. Identify potential discharge barriers on admission and throughout hospital stay 4. Involve patient/S.O. in discharge planning process 5. Communicate referral to paraeducator as appropriate 6. Communicate referral to sheet metal pattern cutter as appropriate 7. Collaborate with case management/social service agency director for discharge needs Outcome: Progressing Note: Evaluation of progress towards goal: Patient able or be aware educationally on lifestyle changes that can help maintain balanced electrolytes. Learn about electrolyte imbalances, potential complications, and treatment options. Problem: Moderate - High Risk Fall Score Description: Pepe Anna Score of =/> 25 or indicated by [facility] Assessment Goal: Patient should be free from fall Description: Interventions: 1. [place] to environment 2. Hourly rounds addressing the 4 P's (Pain, Positioning, Possessions, Potty) 3. Clear area of hazards (spills, clutter, electrical cords, unnecessary equipment) 4. Place equipment (bed & TV controls, call light, phone, urinal) within reach 5. Encourage patient to wear glasses and hearing aides as appropriate 6. Maintain bed in lowest position 7. Lock wheels on bed/wheelchair 8. Provide adequate lighting, including night light 9. Assess need for additional bedding, food/fluids, pain med's prior to sleep/routinely 10. Provide gripper slippers or personal non-skid footwear 11. Teach patient and patient retail sales representative to maintain environment for safety and engage in all aspects of fall prevention program 12. Remind patient to call for help before getting out of bed 13. Initiate bed/chair/exit alarms supportive devices as appropriate, (chair wedge, no-skid floor mat, raised edge mattress, hip protectors) 14. Locate patient bed assignment for optimal visualization 15. Evaluate and identify Safe Patient Handling Equipment needs 16. Provide supervision when out of bed or chair 17. Utilize gait belt as needed to assist with ambulation 18. Place adaptive equipment (cane, walker) within reach 19. Request patient retail sales representative bring adaptive equipment/mobility aids from home or obtain and provide as needed 20. Consult pharmacy regarding effects of med's affecting mobility, cognition, and alternatives 21. Obtain physician order for PT if risk factors associated with mobility are present 22. Obtain physician order for OT as appropriate 23. Utilize diversional activities 24. Educate patient and patient retail sales representative how to maintain a safe environment during visitationtimes (notify nurse prior to leaving bedside) 25. Consider appropriateness of medical or non-medical record librarians teacher 26. Set up voiding schedule as appropriate (every 2 hours) Outcome: Progressing Note: Evaluation of progress towards goal: After Hourly rounding / proper nsg interventions pt is maintained free / reduced risk for injury; safety is ensured - continue to monitor Problem: Potential for Compromised Skin Integrity Goal: Skin integrity is maintained or improved Description: Patient's goal is: INTERVENTIONS 1. Perform initial skin assessment on admission and as needed 2. Turn patient every 2 hours and PRN 3. Relieve pressure to bony prominences 4. Avoid shearing 5. Keep skin clean and dry 6. Alternate a full bath with partial baths for elderly 7. Apply lotion/moisturizer on skin 8. Monitor patient's hygiene practices 9. Float heels 10. Collaborate with interdisciplinary team and initiate plans and interventions as needed Outcome: Progressing Note: Evaluation of progress towards goal: able to report any altered sensation or pain at the siteof tissue impairment; maintain and understanding of plan to heal tissue(if applicable) and prevent injury - continue to monitor Problem: Urinary Incontinence Goal: Perineal skin integrity is maintained or improved Description: INTERVENTIONS 1. Assess genitourinary system, perineal skin, labs (urinalysis), and history of incontinence to include past management, aggravating, and alleviating factors 2. Keep skin clean and dry 3. Apply skin protectant 4. Develop skin care regimen 5. Provide privacy when changing patients incontinence device to maintain their dignity 6. Consider placing an indwelling catheter 7. Collaborate with interdisciplinary team and initiate plans and interventions as needed Outcome: Progressing Note: Evaluation of progress towards goal: Patient will report the ability to void without pain, hesitancy, and urgency.will exhibit normal urine output volume and characteristics and will not void more frequently than every 2 hours. Problem: Neurological Deficit Goal: Neurological status is stable or improving Description: Patient's goal is: INTERVENTIONS 1. Complete Neurological assessment as indicated/ordered 2. Initiate measures to prevent increased intracranial pressure 3. Monitor and assess patient's level of consciousness, motor function, sensory function, and levelof assistance needed for ADLs 4. Monitor and report changes from baseline 5. Maintain blood pressure and fluid volume within ordered parameters to optimize cerebral perfusion and minimize risk of hemorrhage 6. Monitor labs and diagnostic tests 7. Administer anti-seizure medications as ordered 8. Maintain airway, patient safety and administer oxygen as ordered 9. Monitor patient for seizure activity, document and report duration and description of seizure toLIP 10. If seizure occurs, turn patient to side and suction secretions as needed 11. Reorient patient post seizure 12. Seizure pads on all 4 side rails 13. Instruct patient/family to notify RN of any seizure activity 14. Instruct patient/family to call for assistance with activity based on assessment 15. Utilize bleeding precautions if thrombolytic given Outcome: Progressing Note: Evaluation of progress towards goal: Will maintain the usual / improved level of consciousness, cognition, motor, and sensory function; no further deterioration, recurrence of deficits - continue to monitor * PT/OT/PROPRIETARY TRADER - Regan Buchanan OTR/L - 03/23/2025 9:32 AM EST Occupational Therapy OT Type of Visit: Discharge from Therapy, Patient refusal (patient refusing to participate, confused, agitated, swinging arm at [employer] under[employer] during attmept for manual muscle testing. He is not appropriate and is uncooperative. It sounds like he is non mobile and dependent for care and resides at a facility.) * PT/OT/PROPRIETARY TRADER - Starr Kirkpatrick, PT - 03/23/2025 9:32 AM EST Physical Therapy PT Type of Visit: Discharge from Therapy Attempted to see pt this date after medical chart review and discussion with RN. Pt adamantly refusing to work with therapy, reports you don't need to touch me . Pt demo equal and strong B UE ROM, staff using maxi serge lift for transfers which is his baseline. Will sign off for PT at this time. * Plan of Care - Sally Bruce RN - 03/22/2025 7:15 PM EST Problem: Pain Goal: Patient goal is pain score less than 4, able to rest, and participant in treatment plan as appropriate Description: INTERVENTIONS: 1. Encourage patient or legal retail sales representative to report early pain and ask for pain medicine when needed 2. Assess pain using appropriate pain scale and include the scale used when documenting 3. Administer analgesics based on type and severity of pain and evaluate response within appropriate time frame 4. Implement non-pharmacological measures as appropriate and evaluate response 5. Consider cultural and social influences on pain and pain management 6. Notify LIP if interventions ineffective or patient reports new pain 7. Monitor vital signs including pulse ox, end-tidal CO2 based on pain intervention 8. Reassess pain per policy 9. Teach patient or legal retail sales representative interventions for comforting Outcome: Progressing Note: Evaluation of progress towards goal: Patient reports a pain score of 2-4 when medicated for pain as ordered and as needed * Discharge Planning Note - Haylee Lazaro RN - 03/22/2025 2:06 PM EST Ongoing Assessment for Discharge Needs Reviewed discharge milestones and patient needs related to discharge plan. Current estimated discharge date of Mar 24, 2025 has been reviewed by treatment team. Ongoing Assessment for Discharge Needs Flowsheet Row Most Recent Value Referral To Community Referrals / Resources Provided Denies needs Services Requested Patient expects to be discharged to: [email or web address] Does the patient wish to have family/friend/caregiver involved in their discharge planning? Yes Does the patient plan to return home to a community setting? No, patient to discharge to facility-based provider. See Discharge Disposition Discharge Disposition Skilled Return Skilled Return Name [facility] Skilled Return Skilled Return Does the patient need discharge transportation arranged? Yes Transportation Arranged Ambulance Patient choice offered Other (comment) List Provided Other (comment) 3-Midnight Is SNF the current discharge plan for this Traditional/Orignal Medicare patient? Yes Did The Patient Complete A 3 Midnight Qualifying Inpatient Stay? Yes Per RN during discharge transition rounds, barriers to discharge are: IV dapto, IV meropenem, GI consult based oln Hgb and occult stool results, Hydrationplan, Nol Liqujds, ID plan, vfss. PT/OT Discharge Plan: SNF Return to [place] . Will need auth Hand Spring Repairer Helper will continue to follow for any discharge needs. - Haylee Lazaro RN 03/22/25 2:08PM * PT/OT/PROPRIETARY TRADER - BETTIE Gallego/Jason - 03/22/2025 7:33 AM EST Occupational Therapy OT Type of Visit: Medical deferral Reason For Medical Deferral: Vitals outside safe parameters Lab Results: Low hemoglobin (6.8 - will be getting blood soon) * PT/OT/PROPRIETARY TRADER - Starr Kirkpatrick, PT - 03/22/2025 7:19 AM EST Physical Therapy PT Type of Visit: Medical deferral (Hold this AM per RNElsa - Hgb 6.8 and pt to get blood) Reason For Medical Deferral: Lab results Lab Results: Low hemoglobin Will check back as appropriate. * Plan of Care - TIMOTEO Webster - 03/22/2025 6:52 AM EST Called by primary RN due to patient having critical low hemoglobin at 6.8. Previous 7.4. Since March 15 he has dropped 3 g on his hemoglobin was previously 9.4 while at [facility]. We will check occult stool. We will initiate IV Protonix for presumptive possible GI bleed, pending results of occult stool. # acute blood loss anemia, ? GI bleed (having multiple bowel movements per day) -iron panel, we will follow for possible need of Venofer -transfuse 1 unit PRBC -occult stool -initiate Protonix 40 mg IV b.i.d, pending rule out of GI bleed -holding Eliquis, we will reinitiate when appropriate TIMOTEO Webster 03/22/25 0703 * Plan of Care - Britni Bernard RN - 03/21/2025 11:36 PM EST Problem: Pain Goal: Patient goal is pain score less than 4, able to rest, and participant in treatment plan as appropriate Description: INTERVENTIONS: 1. Encourage patient or legal retail sales representative to report early pain and ask for pain medicine when needed 2. Assess pain using appropriate pain scale and include the scale used when documenting 3. Administer analgesics based on type and severity of pain and evaluate response within appropriate time frame 4. Implement non-pharmacological measures as appropriate and evaluate response 5. Consider cultural and social influences on pain and pain management 6. Notify LIP if interventions ineffective or patient reports new pain 7. Monitor vital signs including pulse ox, end-tidal CO2 based on pain intervention 8. Reassess pain per policy 9. Teach patient or legal retail sales representative interventions for comforting Outcome: Progressing Note: Evaluation of progress towards goal:patient has been using interventions in place to control pain needs Problem: Safety Goal: Patient will be injury free during hospitalization Description: INTERVENTIONS: 1. Assess patient's risk for falls and implement fall prevention plan of care per policy 2. Provide and maintain a safe environment 3. Proper use of double Identifiers 4. Medication administration using the 5 rights 5. Hand hygiene 6. Specimens are labeled at the bedside 7. Instruct patient/ patient retail sales representative about use of safety devices 8. Include patient/ patient retail sales representative in decisions related to safety Outcome: Progressing Note: Evaluation of progress towards goal: patient identify using two identifiers. Patient educatedon importance on calling out for any needs Problem: Infection Goal: Absence of infection during hospitalization Description: INTERVENTIONS 1. Assess and monitor for signs and symptoms of infection. 2. Monitor lab/diagnostic results. 3. Monitor all insertion sites i.e., indwelling lines, tubes and drains. 4. Monitor endotracheal (as able) and nasal secretions for changes in amount and color. 5. Administer medications as ordered. 6. Instruct and encourage patient and family to use good hand hygiene technique. 7. Identify and instruct patient/patient retail sales representative in use of appropriate isolation precautionsfor identified infection/symptoms. 8. Provide and discuss with patient/patient retail sales representative on educational MDRO sheet. 9. Encourage and monitor nutritional status daily and consult sheet metal pattern cutter if indicated. 10. Implement neutropenic guidelines as needed. Outcome: Progressing Note: Evaluation of progress towards goal: Patient currently on ATB. Monitored for signs or symptoms of worsening infection Problem: Knowledge Deficit Goal: Patient/patient retail sales representative demonstrates understanding of disease process, treatment plan,medications, and discharge instructions Description: INTERVENTIONS 1. Complete learning assessment and assess knowledge base 2. Provide teaching at level of understanding 3. Provide teaching via preferred learning method(s) Outcome: Progressing Note: Evaluation of progress towards goal: patient understands all education provided regarding care plan Problem: Discharge Planning Goal: Discharge to post-acute care, other facility, or home with appropriate resources Description: Patient's goal is: INTERVENTIONS 1. Conduct assessment to determine patient/family and health care team treatment goals, and need for post-acute services based on payer coverage, community resources, and patient preferences, and barriers to discharge 2. Coordinate with Social work, Care Navigation, and Utilization Review to arrange appropriate level of services according to patient's needs based on patient preference and payer coverage in collaboration with the physician and health care team 3. Address psychosocial, clinical, and financial barriers to discharge as identified in assessment in conjunction with the patient/family and health care team 4. Consult appropriate ancillary services (i.e.. PT/OT/ST, etc) as needed 5. Communicate with and update the patient/family, physician, and health care team regarding progress on the discharge plan 6. Identify discharge learning needs (meds, wound care, etc). 7. Arrange for needed discharge transportation as appropriate Outcome: Progressing Note: Evaluation of progress towards goal: care navigation on board. Discharge plan in continuation Problem: Glucose Imbalance Goal: Patient's discharge needs are met Description: Patient's goal is: INTERVENTIONS 1. Assess patient for self-management skills 2. Encourage participation in diabetes management 3. Identify potential discharge barriers on admission and throughout hospital stay 4. Involve patient/S.O. in discharge planning process 5. Communicate referral to paraeducator as appropriate 6. Communicate referral to sheet metal pattern cutter as appropriate 7. Collaborate with case management/social service agency director for discharge needs Outcome: Progressing Note: Evaluation of progress towards goal: patient monitored for signs of hyperglycemia and hypoglycemia. Problem: Multi-Drug Resistant Organism / Rule-Out Infection Prevention Goal: Prevent transmission of infection Description: INTERVENTIONS 1. Place patient in private room or in room with patient with same disease 2. Discard single-use items 3. Clean reusable equipment between patients 4. Wear gloves for direct and indirect contact with patient or contaminants 5. Change gloves between tasks and procedures 6. Wash hands before and after caring for each patient 7. Wear appropriate personal protective equipment in relation to the indicated isolation type 8. Place appropriate isolation signage on patient's door 9. Provide patient/ patient retail sales representative with isolation education. Outcome: Progressing Note: Evaluation of progress towards goal: Patient currently on ATB. Monitored for signs or symptoms of worsening infection Problem: Potential for Compromised Skin Integrity Goal: Skin integrity is maintained or improved Description: Patient's goal is: INTERVENTIONS 1. Perform initial skin assessment on admission and as needed 2. Turn patient every 2 hours and PRN 3. Relieve pressure to bony prominences 4. Avoid shearing 5. Keep skin clean and dry 6. Alternate a full bath with partial baths for elderly 7. Apply lotion/moisturizer on skin 8. Monitor patient's hygiene practices 9. Float heels 10. Collaborate with interdisciplinary team and initiate plans and interventions as needed Outcome: Progressing Note: Evaluation of progress towards goal: patient is q2 turning and checked for moisture every twohours Goal: Patient's nutritional intake is adequate Description: Patient's goal is: INTERVENTIONS 1. Assess and monitor food intake and supplements, patient food preferences, nausea, vomiting, labs, oral cavity (gums, teeth, tongue, mucosa), proper denture fit, and cultural beliefs 2. Monitor for signs of hypoglycemia and hyperglycemia 3. Collaborate with interdisciplinary team and initiate plan and interventions as ordered 4. Monitor patient's weight 5. Assist patient with meals/food selection 6. Assist patient with eating 7. Allow adequate time for meals 8. Provide pleasant environment during mealtime 9. Increase social contact during mealtimes 10. Plan activities to conserve energy 11. Encourage/perform oral hygiene as appropriate 12. Encourage patient to take dietary supplement as ordered 13. Collaborate with clinical sheet metal pattern cutter 14. Include patient/ patient's retail sales representative in decisions related to nutrition Outcome: Progressing Note: Evaluation of progress towards goal: lvl 4 no liquid diet. Needs assistance and set up Problem: Urinary Incontinence Goal: Perineal skin integrity is maintained or improved Description: INTERVENTIONS 1. Assess genitourinary system, perineal skin, labs (urinalysis), and history of incontinence to include past management, aggravating, and alleviating factors 2. Keep skin clean and dry 3. Apply skin protectant 4. Develop skin care regimen 5. Provide privacy when changing patients incontinence device to maintain their dignity 6. Consider placing an indwelling catheter 7. Collaborate with interdisciplinary team and initiate plans and interventions as needed Outcome: Progressing Note: Evaluation of progress towards goal: patient free from incontinence at this time Problem: Neurological Deficit Goal: Neurological status is stable or improving Description: Patient's goal is: INTERVENTIONS 1. Complete Neurological assessment as indicated/ordered 2. Initiate measures to prevent increased intracranial pressure 3. Monitor and assess patient's level of consciousness, motor function, sensory function, and levelof assistance needed for ADLs 4. Monitor and report changes from baseline 5. Maintain blood pressure and fluid volume within ordered parameters to optimize cerebral perfusion and minimize risk of hemorrhage 6. Monitor labs and diagnostic tests 7. Administer anti-seizure medications as ordered 8. Maintain airway, patient safety and administer oxygen as ordered 9. Monitor patient for seizure activity, document and report duration and description of seizure toLIP 10. If seizure occurs, turn patient to side and suction secretions as needed 11. Reorient patient post seizure 12. Seizure pads on all 4 side rails 13. Instruct patient/family to notify RN of any seizure activity 14. Instruct patient/family to call for assistance with activity based on assessment 15. Utilize bleeding precautions if thrombolytic given Outcome: Progressing Note: Evaluation of progress towards goal: patient has not had an evolving change in mental status * Discharge Planning Note - Tisha Hart - 03/21/2025 2:02 PM EST DISCHARGE PLANNING NOTE Updates sent to [facility] (P# ; F# ) * Discharge Planning Note - Marc Jolley RN - 03/21/2025 12:55 PM EST Ongoing Assessment for Discharge Needs Reviewed discharge milestones and patient needs related to discharge plan. Current estimated discharge date of Mar 23, 2025 has been reviewed by treatment team. Ongoing Assessment for Discharge Needs Flowsheet Row Most Recent Value Referral To Community Referrals / Resources Provided Denies needs Services Requested Patient expects to be discharged to: [facility] Does the patient wish to have family/friend/caregiver involved in their discharge planning? Yes Does the patient plan to return home to a community setting? No, patient to discharge to facility-based provider. See Discharge Disposition Discharge Disposition Skilled Return Skilled Return Name [facility] Skilled Return Skilled Return Does the patient need discharge transportation arranged? Yes Transportation Arranged Ambulance Patient choice offered Other (comment) List Provided Other (comment) 3-Midnight Is SNF the current discharge plan for this Traditional/Orignal Medicare patient? Yes Did The Patient Complete A 3 Midnight Qualifying Inpatient Stay? Yes Case discussed in daily transition rounds and chart reviewed by CN. Barriers to discharge include HERMILA-final ID plan, HD patient, UTI, repeat VFSS-No liquids at this time. Discharge Plan remains: Return to [facility]. Tasked [facility] to send clinical updates. CN will continue to follow and is available should any further needs arise. - Marc Jolley RN 03/21/25 12:55 PM * Plan of Care - Mahsa Estrada RN - 03/21/2025 8:57 AM EST Problem: Pain Goal: Patient goal is pain score less than 4, able to rest, and participant in treatment plan as appropriate Description: INTERVENTIONS: 1. Encourage patient or legal retail sales representative to report early pain and ask for pain medicine when needed 2. Assess pain using appropriate pain scale and include the scale used when documenting 3. Administer analgesics based on type and severity of pain and evaluate response within appropriate time frame 4. Implement non-pharmacological measures as appropriate and evaluate response 5. Consider cultural and social influences on pain and pain management 6. Notify LIP if interventions ineffective or patient reports new pain 7. Monitor vital signs including pulse ox, end-tidal CO2 based on pain intervention 8. Reassess pain per policy 9. Teach patient or legal retail sales representative interventions for comforting Outcome: Progressing Note: Evaluation of progress towards goal: will be controlled to allow for rest and adl's Problem: Safety Goal: Patient will be injury free during hospitalization Description: INTERVENTIONS: 1. Assess patient's risk for falls and implement fall prevention plan of care per policy 2. Provide and maintain a safe environment 3. Proper use of double Identifiers 4. Medication administration using the 5 rights 5. Hand hygiene 6. Specimens are labeled at the bedside 7. Instruct patient/ patient retail sales representative about use of safety devices 8. Include patient/ patient retail sales representative in decisions related to safety Outcome: Progressing Note: Evaluation of progress towards goal: fall bundle Problem: Infection Goal: Absence of infection during hospitalization Description: INTERVENTIONS 1. Assess and monitor for signs and symptoms of infection. 2. Monitor lab/diagnostic results. 3. Monitor all insertion sites i.e., indwelling lines, tubes and drains. 4. Monitor endotracheal (as able) and nasal secretions for changes in amount and color. 5. Administer medications as ordered. 6. Instruct and encourage patient and family to use good hand hygiene technique. 7. Identify and instruct patient/patient retail sales representative in use of appropriate isolation precautionsfor identified infection/symptoms. 8. Provide and discuss with patient/patient retail sales representative on educational MDRO sheet. 9. Encourage and monitor nutritional status daily and consult sheet metal pattern cutter if indicated. 10. Implement neutropenic guidelines as needed. Outcome: Progressing Note: Evaluation of progress towards goal: standard precautions Problem: Knowledge Deficit Goal: Patient/patient retail sales representative demonstrates understanding of disease process, treatment plan,medications, and discharge instructions Description: INTERVENTIONS 1. Complete learning assessment and assess knowledge base 2. Provide teaching at level of understanding 3. Provide teaching via preferred learning method(s) Outcome: Progressing Note: Evaluation of progress towards goal: will have knowledge of disease process and treatment by discharge Problem: Discharge Planning Goal: Discharge to post-acute care, other facility, or home with appropriate resources Description: Patient's goal is: INTERVENTIONS 1. Conduct assessment to determine patient/family and health care team treatment goals, and need for post-acute services based on payer coverage, community resources, and patient preferences, and barriers to discharge 2. Coordinate with Social work, Care Navigation, and Utilization Review to arrange appropriate level of services according to patient's needs based on patient preference and payer coverage in collaboration with the physician and health care team 3. Address psychosocial, clinical, and financial barriers to discharge as identified in assessment in conjunction with the patient/family and health care team 4. Consult appropriate ancillary services (i.e.. PT/OT/ST, etc) as needed 5. Communicate with and update the patient/family, physician, and health care team regarding progress on the discharge plan 6. Identify discharge learning needs (meds, wound care, etc). 7. Arrange for needed discharge transportation as appropriate Outcome: Progressing Note: Evaluation of progress towards goal: snf Problem: Glucose Imbalance Goal: Patient's discharge needs are met Description: Patient's goal is: INTERVENTIONS 1. Assess patient for self-management skills 2. Encourage participation in diabetes management 3. Identify potential discharge barriers on admission and throughout hospital stay 4. Involve patient/S.O. in discharge planning process 5. Communicate referral to paraeducator as appropriate 6. Communicate referral to sheet metal pattern cutter as appropriate 7. Collaborate with case management/social service agency director for discharge needs Outcome: Progressing Note: Evaluation of progress towards goal: per orders and protocol Problem: Multi-Drug Resistant Organism / Rule-Out Infection Prevention Goal: Prevent transmission of infection Description: INTERVENTIONS 1. Place patient in private room or in room with patient with same disease 2. Discard single-use items 3. Clean reusable equipment between patients 4. Wear gloves for direct and indirect contact with patient or contaminants 5. Change gloves between tasks and procedures 6. Wash hands before and after caring for each patient 7. Wear appropriate personal protective equipment in relation to the indicated isolation type 8. Place appropriate isolation signage on patient's door 9. Provide patient/ patient retail sales representative with isolation education. Outcome: Progressing Note: Evaluation of progress towards goal: standard precautions Problem: Moderate - High Risk Fall Score Description: Pepe Anna Score of =/> 25 or indicated by [facility] Assessment Goal: Patient should be free from fall Description: Interventions: 1. [place] to environment 2. Hourly rounds addressing the 4 P's (Pain, Positioning, Possessions, Potty) 3. Clear area of hazards (spills, clutter, electrical cords, unnecessary equipment) 4. Place equipment (bed & TV controls, call light, phone, urinal) within reach 5. Encourage patient to wear glasses and hearing aides as appropriate 6. Maintain bed in lowest position 7. Lock wheels on bed/wheelchair 8. Provide adequate lighting, including night light 9. Assess need for additional bedding, food/fluids, pain med's prior to sleep/routinely 10. Provide gripper slippers or personal non-skid footwear 11. Teach patient and patient retail sales representative to maintain environment for safety and engage in all aspects of fall prevention program 12. Remind patient to call for help before getting out of bed 13. Initiate bed/chair/exit alarms supportive devices as appropriate, (chair wedge, no-skid floor mat, raised edge mattress, hip protectors) 14. Locate patient bed assignment for optimal visualization 15. Evaluate and identify Safe Patient Handling Equipment needs 16. Provide supervision when out of bed or chair 17. Utilize gait belt as needed to assist with ambulation 18. Place adaptive equipment (cane, walker) within reach 19. Request patient retail sales representative bring adaptive equipment/mobility aids from home or obtain and provide as needed 20. Consult pharmacy regarding effects of med's affecting mobility, cognition, and alternatives 21. Obtain physician order for PT if risk factors associated with mobility are present 22. Obtain physician order for OT as appropriate 23. Utilize diversional activities 24. Educate patient and patient retail sales representative how to maintain a safe environment during visitationtimes (notify nurse prior to leaving bedside) 25. Consider appropriateness of medical or non-medical record librarians teacher 26. Set up voiding schedule as appropriate (every 2 hours) Outcome: Progressing Note: Evaluation of progress towards goal: fall bundle Problem: Potential for Compromised Skin Integrity Goal: Skin integrity is maintained or improved Description: Patient's goal is: INTERVENTIONS 1. Perform initial skin assessment on admission and as needed 2. Turn patient every 2 hours and PRN 3. Relieve pressure to bony prominences 4. Avoid shearing 5. Keep skin clean and dry 6. Alternate a full bath with partial baths for elderly 7. Apply lotion/moisturizer on skin 8. Monitor patient's hygiene practices 9. Float heels 10. Collaborate with interdisciplinary team and initiate plans and interventions as needed Outcome: Progressing Note: Evaluation of progress towards goal: q2h turns Goal: Patient's nutritional intake is adequate Description: Patient's goal is: INTERVENTIONS 1. Assess and monitor food intake and supplements, patient food preferences, nausea, vomiting, labs, oral cavity (gums, teeth, tongue, mucosa), proper denture fit, and cultural beliefs 2. Monitor for signs of hypoglycemia and hyperglycemia 3. Collaborate with interdisciplinary team and initiate plan and interventions as ordered 4. Monitor patient's weight 5. Assist patient with meals/food selection 6. Assist patient with eating 7. Allow adequate time for meals 8. Provide pleasant environment during mealtime 9. Increase social contact during mealtimes 10. Plan activities to conserve energy 11. Encourage/perform oral hygiene as appropriate 12. Encourage patient to take dietary supplement as ordered 13. Collaborate with clinical sheet metal pattern cutter 14. Include patient/ patient's retail sales representative in decisions related to nutrition Outcome: Progressing Note: Evaluation of progress towards goal: I&O's Problem: Urinary Incontinence Goal: Perineal skin integrity is maintained or improved Description: INTERVENTIONS 1. Assess genitourinary system, perineal skin, labs (urinalysis), and history of incontinence to include past management, aggravating, and alleviating factors 2. Keep skin clean and dry 3. Apply skin protectant 4. Develop skin care regimen 5. Provide privacy when changing patients incontinence device to maintain their dignity 6. Consider placing an indwelling catheter 7. Collaborate with interdisciplinary team and initiate plans and interventions as needed Outcome: Progressing Note: Evaluation of progress towards goal: scheduled toileting * Plan of Care - Britni Bernard RN - 03/20/2025 9:42 PM EST Problem: Pain Goal: Patient goal is pain score less than 4, able to rest, and participant in treatment plan as appropriate Description: INTERVENTIONS: 1. Encourage patient or legal retail sales representative to report early pain and ask for pain medicine when needed 2. Assess pain using appropriate pain scale and include the scale used when documenting 3. Administer analgesics based on type and severity of pain and evaluate response within appropriate time frame 4. Implement non-pharmacological measures as appropriate and evaluate response 5. Consider cultural and social influences on pain and pain management 6. Notify LIP if interventions ineffective or patient reports new pain 7. Monitor vital signs including pulse ox, end-tidal CO2 based on pain intervention 8. Reassess pain per policy 9. Teach patient or legal retail sales representative interventions for comforting Outcome: Progressing Note: Evaluation of progress towards goal: patient has been using interventions in place to controlpain needs Problem: Safety Goal: Patient will be injury free during hospitalization Description: INTERVENTIONS: 1. Assess patient's risk for falls and implement fall prevention plan of care per policy 2. Provide and maintain a safe environment 3. Proper use of double Identifiers 4. Medication administration using the 5 rights 5. Hand hygiene 6. Specimens are labeled at the bedside 7. Instruct patient/ patient retail sales representative about use of safety devices 8. Include patient/ patient retail sales representative in decisions related to safety Outcome: Progressing Note: Evaluation of progress towards goal: patient identify using two identifiers. Patient educatedon importance on calling out for any needs Problem: Infection Goal: Absence of infection during hospitalization Description: INTERVENTIONS 1. Assess and monitor for signs and symptoms of infection. 2. Monitor lab/diagnostic results. 3. Monitor all insertion sites i.e., indwelling lines, tubes and drains. 4. Monitor endotracheal (as able) and nasal secretions for changes in amount and color. 5. Administer medications as ordered. 6. Instruct and encourage patient and family to use good hand hygiene technique. 7. Identify and instruct patient/patient retail sales representative in use of appropriate isolation precautionsfor identified infection/symptoms. 8. Provide and discuss with patient/patient retail sales representative on educational MDRO sheet. 9. Encourage and monitor nutritional status daily and consult sheet metal pattern cutter if indicated. 10. Implement neutropenic guidelines as needed. Outcome: Progressing Note: Evaluation of progress towards goal: Patient currently on ATB. Monitored for signs or symptoms of worsening infection Problem: Knowledge Deficit Goal: Patient/patient retail sales representative demonstrates understanding of disease process, treatment plan,medications, and discharge instructions Description: INTERVENTIONS 1. Complete learning assessment and assess knowledge base 2. Provide teaching at level of understanding 3. Provide teaching via preferred learning method(s) Outcome: Progressing Note: Evaluation of progress towards goal: patient understands all education provided regarding care plan Problem: Discharge Planning Goal: Discharge to post-acute care, other facility, or home with appropriate resources Description: Patient's goal is: INTERVENTIONS 1. Conduct assessment to determine patient/family and health care team treatment goals, and need for post-acute services based on payer coverage, community resources, and patient preferences, and barriers to discharge 2. Coordinate with Social work, Care Navigation, and Utilization Review to arrange appropriate level of services according to patient's needs based on patient preference and payer coverage in collaboration with the physician and health care team 3. Address psychosocial, clinical, and financial barriers to discharge as identified in assessment in conjunction with the patient/family and health care team 4. Consult appropriate ancillary services (i.e.. PT/OT/ST, etc) as needed 5. Communicate with and update the patient/family, physician, and health care team regarding progress on the discharge plan 6. Identify discharge learning needs (meds, wound care, etc). 7. Arrange for needed discharge transportation as appropriate Outcome: Progressing Note: Evaluation of progress towards goal: care navigation on board. Discharge plan in continuation Problem: Glucose Imbalance Goal: Patient's discharge needs are met Description: Patient's goal is: INTERVENTIONS 1. Assess patient for self-management skills 2. Encourage participation in diabetes management 3. Identify potential discharge barriers on admission and throughout hospital stay 4. Involve patient/S.O. in discharge planning process 5. Communicate referral to paraeducator as appropriate 6. Communicate referral to sheet metal pattern cutter as appropriate 7. Collaborate with case management/social service agency director for discharge needs Outcome: Progressing Note: Evaluation of progress towards goal: patient blood sugars not being monitored at this time Problem: Multi-Drug Resistant Organism / Rule-Out Infection Prevention Goal: Prevent transmission of infection Description: INTERVENTIONS 1. Place patient in private room or in room with patient with same disease 2. Discard single-use items 3. Clean reusable equipment between patients 4. Wear gloves for direct and indirect contact with patient or contaminants 5. Change gloves between tasks and procedures 6. Wash hands before and after caring for each patient 7. Wear appropriate personal protective equipment in relation to the indicated isolation type 8. Place appropriate isolation signage on patient's door 9. Provide patient/ patient retail sales representative with isolation education. Outcome: Progressing Note: Evaluation of progress towards goal: Patient currently on ATB. Monitored for signs or symptoms of worsening infection Problem: Moderate - High Risk Fall Score Description: Pepe Anna Score of =/> 25 [facility] Goal: Patient should be free from fall Description: Interventions: 1. [place] to environment 2. Hourly rounds addressing the 4 P's (Pain, Positioning, Possessions, Potty) 3. Clear area of hazards (spills, clutter, electrical cords, unnecessary equipment) 4. Place equipment (bed & TV controls, call light, phone, urinal) within reach 5. Encourage patient to wear glasses and hearing aides as appropriate 6. Maintain bed in lowest position 7. Lock wheels on bed/wheelchair 8. Provide adequate lighting, including night light 9. Assess need for additional bedding, food/fluids, pain med's prior to sleep/routinely 10. Provide gripper slippers or personal non-skid footwear 11. Teach patient and patient retail sales representative to maintain environment for safety and engage in all aspects of fall prevention program 12. Remind patient to call for help before getting out of bed 13. Initiate bed/chair/exit alarms supportive devices as appropriate, (chair wedge, no-skid floor mat, raised edge mattress, hip protectors) 14. Locate patient bed assignment for optimal visualization 15. Evaluate and identify Safe Patient Handling Equipment needs 16. Provide supervision when out of bed or chair 17. Utilize gait belt as needed to assist with ambulation 18. Place adaptive equipment (cane, walker) within reach 19. Request patient retail sales representative bring adaptive equipment/mobility aids from home or obtain and provide as needed 20. Consult pharmacy regarding effects of med's affecting mobility, cognition, and alternatives 21. Obtain physician order for PT if risk factors associated with mobility are present 22. Obtain physician order for OT as appropriate 23. Utilize diversional activities 24. Educate patient and patient retail sales representative how to maintain a safe environment during visitationtimes (notify nurse prior to leaving bedside) 25. Consider appropriateness of medical or non-medical record librarians teacher 26. Set up voiding schedule as appropriate (every 2 hours) Outcome: Progressing Note: Evaluation of progress towards goal: patient free from fall at this time. Bed alarm and chairalarm in place Problem: Potential for Compromised Skin Integrity Goal: Skin integrity is maintained or improved Description: Patient's goal is: INTERVENTIONS 1. Perform initial skin assessment on admission and as needed 2. Turn patient every 2 hours and PRN 3. Relieve pressure to bony prominences 4. Avoid shearing 5. Keep skin clean and dry 6. Alternate a full bath with partial baths for elderly 7. Apply lotion/moisturizer on skin 8. Monitor patient's hygiene practices 9. Float heels 10. Collaborate with interdisciplinary team and initiate plans and interventions as needed Outcome: Progressing Note: Evaluation of progress towards goal: patient kept dry and free from moisture.patient able to self turn Goal: Patient's nutritional intake is adequate Description: Patient's goal is: INTERVENTIONS 1. Assess and monitor food intake and supplements, patient food preferences, nausea, vomiting, labs, oral cavity (gums, teeth, tongue, mucosa), proper denture fit, and cultural beliefs 2. Monitor for signs of hypoglycemia and hyperglycemia 3. Collaborate with interdisciplinary team and initiate plan and interventions as ordered 4. Monitor patient's weight 5. Assist patient with meals/food selection 6. Assist patient with eating 7. Allow adequate time for meals 8. Provide pleasant environment during mealtime 9. Increase social contact during mealtimes 10. Plan activities to conserve energy 11. Encourage/perform oral hygiene as appropriate 12. Encourage patient to take dietary supplement as ordered 13. Collaborate with clinical sheet metal pattern cutter 14. Include patient/ patient's retail sales representative in decisions related to nutrition Outcome: Progressing Note: Evaluation of progress towards goal: patient on regular diet with adequate nutrition. Able tofeed self Problem: Urinary Incontinence Goal: Perineal skin integrity is maintained or improved Description: INTERVENTIONS 1. Assess genitourinary system, perineal skin, labs (urinalysis), and history of incontinence to include past management, aggravating, and alleviating factors 2. Keep skin clean and dry 3. Apply skin protectant 4. Develop skin care regimen 5. Provide privacy when changing patients incontinence device to maintain their dignity 6. Consider placing an indwelling catheter 7. Collaborate with interdisciplinary team and initiate plans and interventions as needed Outcome: Progressing Note: Evaluation of progress towards goal: no urinary incontinence at this time * Discharge Planning Note - Shama Higgins - 03/20/2025 1:28 PM EST DISCHARGE PLANNING NOTE 2nd IMM letter sent via certified mail to Reilly Muñoz at [address] [place] [address] [place] [address] * Plan of Care - Rosana Lemus RN - 03/20/2025 11:45 AM EST Problem: Knowledge Deficit Goal: Patient/patient retail sales representative demonstrates understanding of disease process, treatment plan,medications, and discharge instructions Description: INTERVENTIONS 1. Complete learning assessment and assess knowledge base 2. Provide teaching at level of understanding 3. Provide teaching via preferred learning method(s) Outcome: Not Progressing Note: Evaluation of progress towards goal: poor understanding noted, no visitors present Problem: Potential for Compromised Skin Integrity Goal: Skin integrity is maintained or improved Description: Patient's goal is: INTERVENTIONS 1. Perform initial skin assessment on admission and as needed 2. Turn patient every 2 hours and PRN 3. Relieve pressure to bony prominences 4. Avoid shearing 5. Keep skin clean and dry 6. Alternate a full bath with partial baths for elderly 7. Apply lotion/moisturizer on skin 8. Monitor patient's hygiene practices 9. Float heels 10. Collaborate with interdisciplinary team and initiate plans and interventions as needed Outcome: Not Progressing Note: Evaluation of progress towards goal: tear on coccyx, buttocks reddened Problem: Urinary Incontinence Goal: Perineal skin integrity is maintained or improved Description: INTERVENTIONS 1. Assess genitourinary system, perineal skin, labs (urinalysis), and history of incontinence to include past management, aggravating, and alleviating factors 2. Keep skin clean and dry 3. Apply skin protectant 4. Develop skin care regimen 5. Provide privacy when changing patients incontinence device to maintain their dignity 6. Consider placing an indwelling catheter 7. Collaborate with interdisciplinary team and initiate plans and interventions as needed Outcome: Not Progressing Note: Evaluation of progress towards goal: occasional incontinent Problem: Knowledge Deficit Goal: Patient/patient retail sales representative demonstrates understanding of disease process, treatment plan,medications, and discharge instructions Description: INTERVENTIONS 1. Complete learning assessment and assess knowledge base 2. Provide teaching at level of understanding 3. Provide teaching via preferred learning method(s) Outcome: Not Progressing Note: Evaluation of progress towards goal: poor understanding noted, no visitors present Problem: Potential for Compromised Skin Integrity Goal: Skin integrity is maintained or improved Description: Patient's goal is: INTERVENTIONS 1. Perform initial skin assessment on admission and as needed 2. Turn patient every 2 hours and PRN 3. Relieve pressure to bony prominences 4. Avoid shearing 5. Keep skin clean and dry 6. Alternate a full bath with partial baths for elderly 7. Apply lotion/moisturizer on skin 8. Monitor patient's hygiene practices 9. Float heels 10. Collaborate with interdisciplinary team and initiate plans and interventions as needed Outcome: Not Progressing Note: Evaluation of progress towards goal: tear on coccyx, buttocks reddened Problem: Urinary Incontinence Goal: Perineal skin integrity is maintained or improved Description: INTERVENTIONS 1. Assess genitourinary system, perineal skin, labs (urinalysis), and history of incontinence to include past management, aggravating, and alleviating factors 2. Keep skin clean and dry 3. Apply skin protectant 4. Develop skin care regimen 5. Provide privacy when changing patients incontinence device to maintain their dignity 6. Consider placing an indwelling catheter 7. Collaborate with interdisciplinary team and initiate plans and interventions as needed Outcome: Not Progressing Note: Evaluation of progress towards goal: occasional incontinent Problem: Pain Goal: Patient goal is pain score less than 4, able to rest, and participant in treatment plan as appropriate Description: INTERVENTIONS: 1. Encourage patient or legal retail sales representative to report early pain and ask for pain medicine when needed 2. Assess pain using appropriate pain scale and include the scale used when documenting 3. Administer analgesics based on type and severity of pain and evaluate response within appropriate time frame 4. Implement non-pharmacological measures as appropriate and evaluate response 5. Consider cultural and social influences on pain and pain management 6. Notify LIP if interventions ineffective or patient reports new pain 7. Monitor vital signs including pulse ox, end-tidal CO2 based on pain intervention 8. Reassess pain per policy 9. Teach patient or legal retail sales representative interventions for comforting Outcome: Progressing Note: Evaluation of progress towards goal: denies pain, comfort measures maintained Problem: Safety Goal: Patient will be injury free during hospitalization Description: INTERVENTIONS: 1. Assess patient's risk for falls and implement fall prevention plan of care per policy 2. Provide and maintain a safe environment 3. Proper use of double Identifiers 4. Medication administration using the 5 rights 5. Hand hygiene 6. Specimens are labeled at the bedside 7. Instruct patient/ patient retail sales representative about use of safety devices 8. Include patient/ patient retail sales representative in decisions related to safety Outcome: Progressing Note: Evaluation of progress towards goal: injury free at this time, safety measures maintained Problem: Infection Goal: Absence of infection during hospitalization Description: INTERVENTIONS 1. Assess and monitor for signs and symptoms of infection. 2. Monitor lab/diagnostic results. 3. Monitor all insertion sites i.e., indwelling lines, tubes and drains. 4. Monitor endotracheal (as able) and nasal secretions for changes in amount and color. 5. Administer medications as ordered. 6. Instruct and encourage patient and family to use good hand hygiene technique. 7. Identify and instruct patient/patient retail sales representative in use of appropriate isolation precautionsfor identified infection/symptoms. 8. Provide and discuss with patient/patient retail sales representative on educational MDRO sheet. 9. Encourage and monitor nutritional status daily and consult sheet metal pattern cutter if indicated. 10. Implement neutropenic guidelines as needed. Outcome: Progressing Note: Evaluation of progress towards goal: continue to monitor Problem: Discharge Planning Goal: Discharge to post-acute care, other facility, or home with appropriate resources Description: Patient's goal is: INTERVENTIONS 1. Conduct assessment to determine patient/family and health care team treatment goals, and need for post-acute services based on payer coverage, community resources, and patient preferences, and barriers to discharge 2. Coordinate with Social work, Care Navigation, and Utilization Review to arrange appropriate level of services according to patient's needs based on patient preference and payer coverage in collaboration with the physician and health care team 3. Address psychosocial, clinical, and financial barriers to discharge as identified in assessment in conjunction with the patient/family and health care team 4. Consult appropriate ancillary services (i.e.. PT/OT/ST, etc) as needed 5. Communicate with and update the patient/family, physician, and health care team regarding progress on the discharge plan 6. Identify discharge learning needs (meds, wound care, etc). 7. Arrange for needed discharge transportation as appropriate Outcome: Progressing Note: Evaluation of progress towards goal: in progress Problem: Glucose Imbalance Goal: Patient's discharge needs are met Description: Patient's goal is: INTERVENTIONS 1. Assess patient for self-management skills 2. Encourage participation in diabetes management 3. Identify potential discharge barriers on admission and throughout hospital stay 4. Involve patient/S.O. in discharge planning process 5. Communicate referral to paraeducator as appropriate 6. Communicate referral to sheet metal pattern cutter as appropriate 7. Collaborate with case management/social service agency director for discharge needs Outcome: Progressing Note: Evaluation of progress towards goal: in progress for snf Problem: Multi-Drug Resistant Organism / Rule-Out Infection Prevention Goal: Prevent transmission of infection Description: INTERVENTIONS 1. Place patient in private room or in room with patient with same disease 2. Discard single-use items 3. Clean reusable equipment between patients 4. Wear gloves for direct and indirect contact with patient or contaminants 5. Change gloves between tasks and procedures 6. Wash hands before and after caring for each patient 7. Wear appropriate personal protective equipment in relation to the indicated isolation type 8. Place appropriate isolation signage on patient's door 9. Provide patient/ patient retail sales representative with isolation education. Outcome: Progressing Note: Evaluation of progress towards goal: continue to monitor Problem: Moderate - High Risk Fall Score Description: Pepe Anna Score of =/> 25 or indicated by [facility] Assessment Goal: Patient should be free from fall Description: Interventions: 1. [place] to environment 2. Hourly rounds addressing the 4 P's (Pain, Positioning, Possessions, Potty) 3. Clear area of hazards (spills, clutter, electrical cords, unnecessary equipment) 4. Place equipment (bed & TV controls, call light, phone, urinal) within reach 5. Encourage patient to wear glasses and hearing aides as appropriate 6. Maintain bed in lowest position 7. Lock wheels on bed/wheelchair 8. Provide adequate lighting, including night light 9. Assess need for additional bedding, food/fluids, pain med's prior to sleep/routinely 10. Provide gripper slippers or personal non-skid footwear 11. Teach patient and patient retail sales representative to maintain environment for safety and engage in all aspects of fall prevention program 12. Remind patient to call for help before getting out of bed 13. Initiate bed/chair/exit alarms supportive devices as appropriate, (chair wedge, no-skid floor mat, raised edge mattress, hip protectors) 14. Locate patient bed assignment for optimal visualization 15. Evaluate and identify Safe Patient Handling Equipment needs 16. Provide supervision when out of bed or chair 17. Utilize gait belt as needed to assist with ambulation 18. Place adaptive equipment (cane, walker) within reach 19. Request patient retail sales representative bring adaptive equipment/mobility aids from home or obtain and provide as needed 20. Consult pharmacy regarding effects of med's affecting mobility, cognition, and alternatives 21. Obtain physician order for PT if risk factors associated with mobility are present 22. Obtain physician order for OT as appropriate 23. Utilize diversional activities 24. Educate patient and patient retail sales representative how to maintain a safe environment during visitationtimes (notify nurse prior to leaving bedside) 25. Consider appropriateness of medical or non-medical record librarians teacher 26. Set up voiding schedule as appropriate (every 2 hours) Outcome: Progressing Note: Evaluation of progress towards goal: free of fall at this time Problem: Potential for Compromised Skin Integrity Goal: Patient's nutritional intake is adequate Description: Patient's goal is: INTERVENTIONS 1. Assess and monitor food intake and supplements, patient food preferences, nausea, vomiting, labs, oral cavity (gums, teeth, tongue, mucosa), proper denture fit, and cultural beliefs 2. Monitor for signs of hypoglycemia and hyperglycemia 3. Collaborate with interdisciplinary team and initiate plan and interventions as ordered 4. Monitor patient's weight 5. Assist patient with meals/food selection 6. Assist patient with eating 7. Allow adequate time for meals 8. Provide pleasant environment during mealtime 9. Increase social contact during mealtimes 10. Plan activities to conserve energy 11. Encourage/perform oral hygiene as appropriate 12. Encourage patient to take dietary supplement as ordered 13. Collaborate with clinical sheet metal pattern cutter 14. Include patient/ patient's retail sales representative in decisions related to nutrition Outcome: Progressing Note: Evaluation of progress towards goal: good intake of level 4, no liquids Problem: Inadequate Gas Exchange Goal: Patient is adequately oxygenated and ventilation is improved Description: Patient's goal is: INTERVENTIONS 1. Monitor vital signs, oxygen saturation, respiratory status to include rate, depth, effort, lung sounds, mental status, cyanosis, and labs (ABGs) 2. Administer oxygen as indicated 3. Position patient to optimize gas exchange 4. Instruct patient to turn, cough, and deep breathe; encourage incentive spirometer if indicated 5. Collaborate with Respiratory Therapy for inhaled medication and therapeutic adjuncts 6. Assess skin when indicated 7. Coordinate care and interventions to conserve energy 8. Educate and offer resources for tobacco cessation, if indicated Outcome: Progressing Flowsheets (Taken 03/20/2025 1140) Chest Assessment: Chest expansion symmetrical Note: Evaluation of progress towards goal: on room air Problem: Pain Goal: Patient goal is pain score less than 4, able to rest, and participant in treatment plan as appropriate Description: INTERVENTIONS: 1. Encourage patient or legal retail sales representative to report early pain and ask for pain medicine when needed 2. Assess pain using appropriate pain scale and include the scale used when documenting 3. Administer analgesics based on type and severity of pain and evaluate response within appropriate time frame 4. Implement non-pharmacological measures as appropriate and evaluate response 5. Consider cultural and social influences on pain and pain management 6. Notify LIP if interventions ineffective or patient reports new pain 7. Monitor vital signs including pulse ox, end-tidal CO2 based on pain intervention 8. Reassess pain per policy 9. Teach patient or legal retail sales representative interventions for comforting Outcome: Progressing Note: Evaluation of progress towards goal: denies pain, comfort measures maintained Problem: Safety Goal: Patient will be injury free during hospitalization Description: INTERVENTIONS: 1. Assess patient's risk for falls and implement fall prevention plan of care per policy 2. Provide and maintain a safe environment 3. Proper use of double Identifiers 4. Medication administration using the 5 rights 5. Hand hygiene 6. Specimens are labeled at the bedside 7. Instruct patient/ patient retail sales representative about use of safety devices 8. Include patient/ patient retail sales representative in decisions related to safety Outcome: Progressing Note: Evaluation of progress towards goal: injury free at this time, safety measures maintained Problem: Infection Goal: Absence of infection during hospitalization Description: INTERVENTIONS 1. Assess and monitor for signs and symptoms of infection. 2. Monitor lab/diagnostic results. 3. Monitor all insertion sites i.e., indwelling lines, tubes and drains. 4. Monitor endotracheal (as able) and nasal secretions for changes in amount and color. 5. Administer medications as ordered. 6. Instruct and encourage patient and family to use good hand hygiene technique. 7. Identify and instruct patient/patient retail sales representative in use of appropriate isolation precautionsfor identified infection/symptoms. 8. Provide and discuss with patient/patient retail sales representative on educational MDRO sheet. 9. Encourage and monitor nutritional status daily and consult sheet metal pattern cutter if indicated. 10. Implement neutropenic guidelines as needed. Outcome: Progressing Note: Evaluation of progress towards goal: continue to monitor Problem: Discharge Planning Goal: Discharge to post-acute care, other facility, or home with appropriate resources Description: Patient's goal is: INTERVENTIONS 1. Conduct assessment to determine patient/family and health care team treatment goals, and need for post-acute services based on payer coverage, community resources, and patient preferences, and barriers to discharge 2. Coordinate with Social work, Care Navigation, and Utilization Review to arrange appropriate level of services according to patient's needs based on patient preference and payer coverage in collaboration with the physician and health care team 3. Address psychosocial, clinical, and financial barriers to discharge as identified in assessment in conjunction with the patient/family and health care team 4. Consult appropriate ancillary services (i.e.. PT/OT/ST, etc) as needed 5. Communicate with and update the patient/family, physician, and health care team regarding progress on the discharge plan 6. Identify discharge learning needs (meds, wound care, etc). 7. Arrange for needed discharge transportation as appropriate Outcome: Progressing Note: Evaluation of progress towards goal: in progress Problem: Glucose Imbalance Goal: Patient's discharge needs are met Description: Patient's goal is: INTERVENTIONS 1. Assess patient for self-management skills 2. Encourage participation in diabetes management 3. Identify potential discharge barriers on admission and throughout hospital stay 4. Involve patient/S.O. in discharge planning process 5. Communicate referral to paraeducator as appropriate 6. Communicate referral to sheet metal pattern cutter as appropriate 7. Collaborate with case management/social service agency director for discharge needs Outcome: Progressing Note: Evaluation of progress towards goal: in progress for snf Problem: Multi-Drug Resistant Organism / Rule-Out Infection Prevention Goal: Prevent transmission of infection Description: INTERVENTIONS 1. Place patient in private room or in room with patient with same disease 2. Discard single-use items 3. Clean reusable equipment between patients 4. Wear gloves for direct and indirect contact with patient or contaminants 5. Change gloves between tasks and procedures 6. Wash hands before and after caring for each patient 7. Wear appropriate personal protective equipment in relation to the indicated isolation type 8. Place appropriate isolation signage on patient's door 9. Provide patient/ patient retail sales representative with isolation education. Outcome: Progressing Note: Evaluation of progress towards goal: continue to monitor Problem: Moderate - High Risk Fall Score Description: Pepe Anna Score of =/> 25 or indicated by [facility] Assessment Goal: Patient should be free from fall Description: Interventions: 1. [place] to environment 2. Hourly rounds addressing the 4 P's (Pain, Positioning, Possessions, Potty) 3. Clear area of hazards (spills, clutter, electrical cords, unnecessary equipment) 4. Place equipment (bed & TV controls, call light, phone, urinal) within reach 5. Encourage patient to wear glasses and hearing aides as appropriate 6. Maintain bed in lowest position 7. Lock wheels on bed/wheelchair 8. Provide adequate lighting, including night light 9. Assess need for additional bedding, food/fluids, pain med's prior to sleep/routinely 10. Provide gripper slippers or personal non-skid footwear 11. Teach patient and patient retail sales representative to maintain environment for safety and engage in all aspects of fall prevention program 12. Remind patient to call for help before getting out of bed 13. Initiate bed/chair/exit alarms supportive devices as appropriate, (chair wedge, no-skid floor mat, raised edge mattress, hip protectors) 14. Locate patient bed assignment for optimal visualization 15. Evaluate and identify Safe Patient Handling Equipment needs 16. Provide supervision when out of bed or chair 17. Utilize gait belt as needed to assist with ambulation 18. Place adaptive equipment (cane, walker) within reach 19. Request patient retail sales representative bring adaptive equipment/mobility aids from home or obtain and provide as needed 20. Consult pharmacy regarding effects of med's affecting mobility, cognition, and alternatives 21. Obtain physician order for PT if risk factors associated with mobility are present 22. Obtain physician order for OT as appropriate 23. Utilize diversional activities 24. Educate patient and patient retail sales representative how to maintain a safe environment during visitationtimes (notify nurse prior to leaving bedside) 25. Consider appropriateness of medical or non-medical record librarians teacher 26. Set up voiding schedule as appropriate (every 2 hours) Outcome: Progressing Note: Evaluation of progress towards goal: free of fall at this time Problem: Potential for Compromised Skin Integrity Goal: Patient's nutritional intake is adequate Description: Patient's goal is: INTERVENTIONS 1. Assess and monitor food intake and supplements, patient food preferences, nausea, vomiting, labs, oral cavity (gums, teeth, tongue, mucosa), proper denture fit, and cultural beliefs 2. Monitor for signs of hypoglycemia and hyperglycemia 3. Collaborate with interdisciplinary team and initiate plan and interventions as ordered 4. Monitor patient's weight 5. Assist patient with meals/food selection 6. Assist patient with eating 7. Allow adequate time for meals 8. Provide pleasant environment during mealtime 9. Increase social contact during mealtimes 10. Plan activities to conserve energy 11. Encourage/perform oral hygiene as appropriate 12. Encourage patient to take dietary supplement as ordered 13. Collaborate with clinical sheet metal pattern cutter 14. Include patient/ patient's retail sales representative in decisions related to nutrition Outcome: Progressing Note: Evaluation of progress towards goal: good intake of level 4, no liquids Problem: Inadequate Gas Exchange Goal: Patient is adequately oxygenated and ventilation is improved Description: Patient's goal is: INTERVENTIONS 1. Monitor vital signs, oxygen saturation, respiratory status to include rate, depth, effort, lung sounds, mental status, cyanosis, and labs (ABGs) 2. Administer oxygen as indicated 3. Position patient to optimize gas exchange 4. Instruct patient to turn, cough, and deep breathe; encourage incentive spirometer if indicated 5. Collaborate with Respiratory Therapy for inhaled medication and therapeutic adjuncts 6. Assess skin when indicated 7. Coordinate care and interventions to conserve energy 8. Educate and offer resources for tobacco cessation, if indicated Outcome: Progressing Flowsheets (Taken 03/20/2025 1140) Chest Assessment: Chest expansion symmetrical Note: Evaluation of progress towards goal: on room air Problem: Glucose Imbalance Goal: Clinical indication of glucose balance is achieved Description: Patient's goal is: INTERVENTIONS 1. Monitor blood glucose levels as ordered 2. Administer medications as ordered 3. Notify physician of ineffective treatment plan Outcome: Completed Note: Evaluation of progress towards goal: no order Problem: Safety - Medical Restraint Goal: Free from restraint(s) (Restraint for Interference with Rehabilitation Services Manager) Description: INTERVENTIONS: 1. ONCE/SHIFT or MINIMUM Q12H: Assess and document the continuing need for restraints 2. Order is valid for the duration of the episode of care 3. Discontinue at the earliest possible time once the reason for restraints no longer exists 4. Identify and implement measures to help patient regain control 5. Food, fluids, and toilet offered at a minimum of every 2 hours 6. RN modifies the patient's plan of care by entering a problem statement related to safety; individualizes the safety outcome Outcome: Completed Note: Evaluation of progress towards goal: not in restraints Problem: Glucose Imbalance Goal: Clinical indication of glucose balance is achieved Description: Patient's goal is: INTERVENTIONS 1. Monitor blood glucose levels as ordered 2. Administer medications as ordered 3. Notify physician of ineffective treatment plan Outcome: Completed Note: Evaluation of progress towards goal: no order Problem: Safety - Medical Restraint Goal: Free from restraint(s) (Restraint for Interference with Rehabilitation Services Manager) Description: INTERVENTIONS: 1. ONCE/SHIFT or MINIMUM Q12H: Assess and document the continuing need for restraints 2. Order is valid for the duration of the episode of care 3. Discontinue at the earliest possible time once the reason for restraints no longer exists 4. Identify and implement measures to help patient regain control 5. Food, fluids, and toilet offered at a minimum of every 2 hours 6. RN modifies the patient's plan of care by entering a problem statement related to safety; individualizes the safety outcome Outcome: Completed Note: Evaluation of progress towards goal: not in restraints * Plan of Care - Britni Bernard RN - 03/19/2025 9:31 PM EST Problem: Pain Goal: Patient goal is pain score less than 4, able to rest, and participant in treatment plan as appropriate Description: INTERVENTIONS: 1. Encourage patient or legal retail sales representative to report early pain and ask for pain medicine when needed 2. Assess pain using appropriate pain scale and include the scale used when documenting 3. Administer analgesics based on type and severity of pain and evaluate response within appropriate time frame 4. Implement non-pharmacological measures as appropriate and evaluate response 5. Consider cultural and social influences on pain and pain management 6. Notify LIP if interventions ineffective or patient reports new pain 7. Monitor vital signs including pulse ox, end-tidal CO2 based on pain intervention 8. Reassess pain per policy 9. Teach patient or legal retail sales representative interventions for comforting Outcome: Progressing Note: Evaluation of progress towards goal: patient states no pain at this shamir. Interventions in place if pain occurs Problem: Safety Goal: Patient will be injury free during hospitalization Description: INTERVENTIONS: 1. Assess patient's risk for falls and implement fall prevention plan of care per policy 2. Provide and maintain a safe environment 3. Proper use of double Identifiers 4. Medication administration using the 5 rights 5. Hand hygiene 6. Specimens are labeled at the bedside 7. Instruct patient/ patient retail sales representative about use of safety devices 8. Include patient/ patient retail sales representative in decisions related to safety Outcome: Progressing Note: Evaluation of progress towards goal: patient identify using two identifiers. Patient educatedon importance on calling out for any needs Problem: Infection Goal: Absence of infection during hospitalization Description: INTERVENTIONS 1. Assess and monitor for signs and symptoms of infection. 2. Monitor lab/diagnostic results. 3. Monitor all insertion sites i.e., indwelling lines, tubes and drains. 4. Monitor endotracheal (as able) and nasal secretions for changes in amount and color. 5. Administer medications as ordered. 6. Instruct and encourage patient and family to use good hand hygiene technique. 7. Identify and instruct patient/patient retail sales representative in use of appropriate isolation precautionsfor identified infection/symptoms. 8. Provide and discuss with patient/patient retail sales representative on educational MDRO sheet. 9. Encourage and monitor nutritional status daily and consult sheet metal pattern cutter if indicated. 10. Implement neutropenic guidelines as needed. Outcome: Progressing Note: Evaluation of progress towards goal: Patient currently on ATB. Monitored for signs or symptoms of worsening infection Problem: Knowledge Deficit Goal: Patient/patient retail sales representative demonstrates understanding of disease process, treatment plan,medications, and discharge instructions Description: INTERVENTIONS 1. Complete learning assessment and assess knowledge base 2. Provide teaching at level of understanding 3. Provide teaching via preferred learning method(s) Outcome: Progressing Note: Evaluation of progress towards goal: patient understands all education provided regarding care plan Problem: Discharge Planning Goal: Discharge to post-acute care, other facility, or home with appropriate resources Description: Patient's goal is: INTERVENTIONS 1. Conduct assessment to determine patient/family and health care team treatment goals, and need for post-acute services based on payer coverage, community resources, and patient preferences, and barriers to discharge 2. Coordinate with Social work, Care Navigation, and Utilization Review to arrange appropriate level of services according to patient's needs based on patient preference and payer coverage in collaboration with the physician and health care team 3. Address psychosocial, clinical, and financial barriers to discharge as identified in assessment in conjunction with the patient/family and health care team 4. Consult appropriate ancillary services (i.e.. PT/OT/ST, etc) as needed 5. Communicate with and update the patient/family, physician, and health care team regarding progress on the discharge plan 6. Identify discharge learning needs (meds, wound care, etc). 7. Arrange for needed discharge transportation as appropriate Outcome: Progressing Note: Evaluation of progress towards goal: care navigation on board. Discharge plan in continuation Problem: Glucose Imbalance Goal: Clinical indication of glucose balance is achieved Description: Patient's goal is: INTERVENTIONS 1. Monitor blood glucose levels as ordered 2. Administer medications as ordered 3. Notify physician of ineffective treatment plan Outcome: Progressing Note: Evaluation of progress towards goal: patient monitored for signs of hyperglycemia and hypoglycemia. Insulin coverage administered per sliding scale. Goal: Patient's discharge needs are met Description: Patient's goal is: INTERVENTIONS 1. Assess patient for self-management skills 2. Encourage participation in diabetes management 3. Identify potential discharge barriers on admission and throughout hospital stay 4. Involve patient/S.O. in discharge planning process 5. Communicate referral to paraeducator as appropriate 6. Communicate referral to sheet metal pattern cutter as appropriate 7. Collaborate with case management/social service agency director for discharge needs Outcome: Progressing Note: Evaluation of progress towards goal: care navigation on board. Discharge plan in continuation Problem: Multi-Drug Resistant Organism / Rule-Out Infection Prevention Goal: Prevent transmission of infection Description: INTERVENTIONS 1. Place patient in private room or in room with patient with same disease 2. Discard single-use items 3. Clean reusable equipment between patients 4. Wear gloves for direct and indirect contact with patient or contaminants 5. Change gloves between tasks and procedures 6. Wash hands before and after caring for each patient 7. Wear appropriate personal protective equipment in relation to the indicated isolation type 8. Place appropriate isolation signage on patient's door 9. Provide patient/ patient retail sales representative with isolation education. Outcome: Progressing Note: Evaluation of progress towards goal: patient monitored for any signs of worsening infection Problem: Safety - Medical Restraint Goal: Free from restraint(s) (Restraint for Interference with Rehabilitation Services Manager) Description: INTERVENTIONS: 1. ONCE/SHIFT or MINIMUM Q12H: Assess and document the continuing need for restraints 2. Order is valid for the duration of the episode of care 3. Discontinue at the earliest possible time once the reason for restraints no longer exists 4. Identify and implement measures to help patient regain control 5. Food, fluids, and toilet offered at a minimum of every 2 hours 6. RN modifies the patient's plan of care by entering a problem statement related to safety; individualizes the safety outcome Outcome: Progressing Note: Evaluation of progress towards goal: patient free from restraints at this time Problem: Moderate - High Risk Fall Score Description: Pepe Anna Score of =/> 25 or indicated by [facility] Assessment Goal: Patient should be free from fall Description: Interventions: 1. [place] to environment 2. Hourly rounds addressing the 4 P's (Pain, Positioning, Possessions, Potty) 3. Clear area of hazards (spills, clutter, electrical cords, unnecessary equipment) 4. Place equipment (bed & TV controls, call light, phone, urinal) within reach 5. Encourage patient to wear glasses and hearing aides as appropriate 6. Maintain bed in lowest position 7. Lock wheels on bed/wheelchair 8. Provide adequate lighting, including night light 9. Assess need for additional bedding, food/fluids, pain med's prior to sleep/routinely 10. Provide gripper slippers or personal non-skid footwear 11. Teach patient and patient retail sales representative to maintain environment for safety and engage in all aspects of fall prevention program 12. Remind patient to call for help before getting out of bed 13. Initiate bed/chair/exit alarms supportive devices as appropriate, (chair wedge, no-skid floor mat, raised edge mattress, hip protectors) 14. Locate patient bed assignment for optimal visualization 15. Evaluate and identify Safe Patient Handling Equipment needs 16. Provide supervision when out of bed or chair 17. Utilize gait belt as needed to assist with ambulation 18. Place adaptive equipment (cane, walker) within reach 19. Request patient retail sales representative bring adaptive equipment/mobility aids from home or obtain and provide as needed 20. Consult pharmacy regarding effects of med's affecting mobility, cognition, and alternatives 21. Obtain physician order for PT if risk factors associated with mobility are present 22. Obtain physician order for OT as appropriate 23. Utilize diversional activities 24. Educate patient and patient retail sales representative how to maintain a safe environment during visitationtimes (notify nurse prior to leaving bedside) 25. Consider appropriateness of medical or non-medical record librarians teacher 26. Set up voiding schedule as appropriate (every 2 hours) Outcome: Progressing Note: Evaluation of progress towards goal: patient free from fall at this time. Bed alarm and chairalarm in place Problem: Potential for Compromised Skin Integrity Goal: Skin integrity is maintained or improved Description: Patient's goal is: INTERVENTIONS 1. Perform initial skin assessment on admission and as needed 2. Turn patient every 2 hours and PRN 3. Relieve pressure to bony prominences 4. Avoid shearing 5. Keep skin clean and dry 6. Alternate a full bath with partial baths for elderly 7. Apply lotion/moisturizer on skin 8. Monitor patient's hygiene practices 9. Float heels 10. Collaborate with interdisciplinary team and initiate plans and interventions as needed Outcome: Progressing Note: Evaluation of progress towards goal: patient is q2 turning. Monitored for moisture Goal: Patient's nutritional intake is adequate Description: Patient's goal is: INTERVENTIONS 1. Assess and monitor food intake and supplements, patient food preferences, nausea, vomiting, labs, oral cavity (gums, teeth, tongue, mucosa), proper denture fit, and cultural beliefs 2. Monitor for signs of hypoglycemia and hyperglycemia 3. Collaborate with interdisciplinary team and initiate plan and interventions as ordered 4. Monitor patient's weight 5. Assist patient with meals/food selection 6. Assist patient with eating 7. Allow adequate time for meals 8. Provide pleasant environment during mealtime 9. Increase social contact during mealtimes 10. Plan activities to conserve energy 11. Encourage/perform oral hygiene as appropriate 12. Encourage patient to take dietary supplement as ordered 13. Collaborate with clinical sheet metal pattern cutter 14. Include patient/ patient's retail sales representative in decisions related to nutrition Outcome: Progressing Note: Evaluation of progress towards goal: lvl 4 diet no liquids able to self feed wit set up Problem: Urinary Incontinence Goal: Perineal skin integrity is maintained or improved Description: INTERVENTIONS 1. Assess genitourinary system, perineal skin, labs (urinalysis), and history of incontinence to include past management, aggravating, and alleviating factors 2. Keep skin clean and dry 3. Apply skin protectant 4. Develop skin care regimen 5. Provide privacy when changing patients incontinence device to maintain their dignity 6. Consider placing an indwelling catheter 7. Collaborate with interdisciplinary team and initiate plans and interventions as needed Outcome: Progressing Note: Evaluation of progress towards goal: patient checked for moisture and kept dry * Discharge Planning Note - Luh Mcghee RN - 03/19/2025 3:51 PM EST Images from the original note were not included. DISCHARGE PLANNING NOTE Journal Clerk met with patient brother, introduced self, and explained role. Patient brother educated on safe discharge plan. Pt admitted 03/16/2025 with ESRD (end stage renal disease) ([facility]) [N18.6] Pneumonia of right lower lobe due to infectious organism [J18.9] Sepsis with encephalopathy and septic shock, due to unspecified organism ([facility]) [A41.9, R65.21, G93.41] per chart review. Spoke with pt brother, Bennett who said pt lives at [place] and the plan is for him to return there at the time of dc. Past Medical History: Diagnosis Date Acute myocardial infarction ([facility] [place]) Cardiac pacemaker in situ Chronic systolic heart failure ([facility] [place] Dependence on renal dialysis Diabetes mellitus without complication ([facility] [place] End stage renal disease ([facility] [place]) Has a tremor 02/25/2025 admission Hypomagnesemia Hyposmolality syndrome PNA (pneumonia) Sepsis with encephalopathy and septic shock, due to unspecified organism ([facility]) 03/16/2025 Syncope and collapse Prior to admission patient was prestidigitator care facility and partial assistance. Medical equipment patient used prior to admission includes: lives at snf. Patient denies need for transportation/ food/ prescription medication assistance resources. PCP: GATO CHA MD Pharmacy:[facility] PCP and pharmacy confirmed with patient. CN offered to assist with follow up appointment arrangements; patient declines - states will self-schedule follow up appointments. GATO CHA MD added to Follow Up Providers for Summary of Care communication. Current discharge plan is: SNF Services Requested: Services Requested Patient expects to be discharged to:: [facility] Does the patient wish to have family/friend/caregiver involved in their discharge planning?: Yes Does the patient plan to return home to a community setting?: No, patient to discharge to facility-based provider. See Discharge Disposition Discharge Disposition: Skilled Return Skilled Return Name: [place] Skilled Return Skilled Return Does the patient need discharge transportation arranged?: Yes Transportation Arranged: Ambulance Patient choice offered: Other (comment) List Provided: Other (comment) Goals: Goals SNF (pt-stated) Evaluation of progress towards goal: Patient plans to return to SNF Will continue to follow as plan of care develops. CN discussed benefits and importance of medication compliance and follow ups. Please feel free to reach out for any discharge planning questions. - LUH MCGHEE RN 03/19/25 3:51 PM * Plan of Care - Mahsa Estrada RN - 03/19/2025 11:30 AM EST Problem: Pain Goal: Patient goal is pain score less than 4, able to rest, and participant in treatment plan as appropriate Description: INTERVENTIONS: 1. Encourage patient or legal retail sales representative to report early pain and ask for pain medicine when needed 2. Assess pain using appropriate pain scale and include the scale used when documenting 3. Administer analgesics based on type and severity of pain and evaluate response within appropriate time frame 4. Implement non-pharmacological measures as appropriate and evaluate response 5. Consider cultural and social influences on pain and pain management 6. Notify LIP if interventions ineffective or patient reports new pain 7. Monitor vital signs including pulse ox, end-tidal CO2 based on pain intervention 8. Reassess pain per policy 9. Teach patient or legal retail sales representative interventions for comforting Outcome: Progressing Note: Evaluation of progress towards goal: will be controlled to allow for rest and adl's Problem: Safety Goal: Patient will be injury free during hospitalization Description: INTERVENTIONS: 1. Assess patient's risk for falls and implement fall prevention plan of care per policy 2. Provide and maintain a safe environment 3. Proper use of double Identifiers 4. Medication administration using the 5 rights 5. Hand hygiene 6. Specimens are labeled at the bedside 7. Instruct patient/ patient retail sales representative about use of safety devices 8. Include patient/ patient retail sales representative in decisions related to safety Outcome: Progressing Note: Evaluation of progress towards goal: fall bundle Problem: Infection Goal: Absence of infection during hospitalization Description: INTERVENTIONS 1. Assess and monitor for signs and symptoms of infection. 2. Monitor lab/diagnostic results. 3. Monitor all insertion sites i.e., indwelling lines, tubes and drains. 4. Monitor endotracheal (as able) and nasal secretions for changes in amount and color. 5. Administer medications as ordered. 6. Instruct and encourage patient and family to use good hand hygiene technique. 7. Identify and instruct patient/patient retail sales representative in use of appropriate isolation precautionsfor identified infection/symptoms. 8. Provide and discuss with patient/patient retail sales representative on educational MDRO sheet. 9. Encourage and monitor nutritional status daily and consult sheet metal pattern cutter if indicated. 10. Implement neutropenic guidelines as needed. Outcome: Progressing Note: Evaluation of progress towards goal: standard precaution Problem: Knowledge Deficit Goal: Patient/patient retail sales representative demonstrates understanding of disease process, treatment plan,medications, and discharge instructions Description: INTERVENTIONS 1. Complete learning assessment and assess knowledge base 2. Provide teaching at level of understanding 3. Provide teaching via preferred learning method(s) Outcome: Progressing Note: Evaluation of progress towards goal: will have knowledge of disease process and treatment by discharge Problem: Discharge Planning Goal: Discharge to post-acute care, other facility, or home with appropriate resources Description: Patient's goal is: INTERVENTIONS 1. Conduct assessment to determine patient/family and health care team treatment goals, and need for post-acute services based on payer coverage, community resources, and patient preferences, and barriers to discharge 2. Coordinate with Social work, Care Navigation, and Utilization Review to arrange appropriate level of services according to patient's needs based on patient preference and payer coverage in collaboration with the physician and health care team 3. Address psychosocial, clinical, and financial barriers to discharge as identified in assessment in conjunction with the patient/family and health care team 4. Consult appropriate ancillary services (i.e.. PT/OT/ST, etc) as needed 5. Communicate with and update the patient/family, physician, and health care team regarding progress on the discharge plan 6. Identify discharge learning needs (meds, wound care, etc). 7. Arrange for needed discharge transportation as appropriate Outcome: Progressing Note: Evaluation of progress towards goal: snf Problem: Glucose Imbalance Goal: Clinical indication of glucose balance is achieved Description: Patient's goal is: INTERVENTIONS 1. Monitor blood glucose levels as ordered 2. Administer medications as ordered 3. Notify physician of ineffective treatment plan Outcome: Progressing Note: Evaluation of progress towards goal: per orders and protocol Goal: Patient's discharge needs are met Description: Patient's goal is: INTERVENTIONS 1. Assess patient for self-management skills 2. Encourage participation in diabetes management 3. Identify potential discharge barriers on admission and throughout hospital stay 4. Involve patient/S.O. in discharge planning process 5. Communicate referral to paraeducator as appropriate 6. Communicate referral to sheet metal pattern cutter as appropriate 7. Collaborate with case management/social service agency director for discharge needs Outcome: Progressing Note: Evaluation of progress towards goal: cn to asssist Problem: Multi-Drug Resistant Organism / Rule-Out Infection Prevention Goal: Prevent transmission of infection Description: INTERVENTIONS 1. Place patient in private room or in room with patient with same disease 2. Discard single-use items 3. Clean reusable equipment between patients 4. Wear gloves for direct and indirect contact with patient or contaminants 5. Change gloves between tasks and procedures 6. Wash hands before and after caring for each patient 7. Wear appropriate personal protective equipment in relation to the indicated isolation type 8. Place appropriate isolation signage on patient's door 9. Provide patient/ patient retail sales representative with isolation education. Outcome: Progressing Note: Evaluation of progress towards goal: standard precautions Problem: Safety - Medical Restraint Goal: Free from restraint(s) (Restraint for Interference with Rehabilitation Services Manager) Description: INTERVENTIONS: 1. ONCE/SHIFT or MINIMUM Q12H: Assess and document the continuing need for restraints 2. Order is valid for the duration of the episode of care 3. Discontinue at the earliest possible time once the reason for restraints no longer exists 4. Identify and implement measures to help patient regain control 5. Food, fluids, and toilet offered at a minimum of every 2 hours 6. RN modifies the patient's plan of care by entering a problem statement related to safety; individualizes the safety outcome Outcome: Progressing Note: Evaluation of progress towards goal: not in use Problem: Moderate - High Risk Fall Score Description: Pepe Anna Score of =/> 25 or indicated by [facility] Assessment Goal: Patient should be free from fall Description: Interventions: 1. [place] to environment 2. Hourly rounds addressing the 4 P's (Pain, Positioning, Possessions, Potty) 3. Clear area of hazards (spills, clutter, electrical cords, unnecessary equipment) 4. Place equipment (bed & TV controls, call light, phone, urinal) within reach 5. Encourage patient to wear glasses and hearing aides as appropriate 6. Maintain bed in lowest position 7. Lock wheels on bed/wheelchair 8. Provide adequate lighting, including night light 9. Assess need for additional bedding, food/fluids, pain med's prior to sleep/routinely 10. Provide gripper slippers or personal non-skid footwear 11. Teach patient and patient retail sales representative to maintain environment for safety and engage in all aspects of fall prevention program 12. Remind patient to call for help before getting out of bed 13. Initiate bed/chair/exit alarms supportive devices as appropriate, (chair wedge, no-skid floor mat, raised edge mattress, hip protectors) 14. Locate patient bed assignment for optimal visualization 15. Evaluate and identify Safe Patient Handling Equipment needs 16. Provide supervision when out of bed or chair 17. Utilize gait belt as needed to assist with ambulation 18. Place adaptive equipment (cane, walker) within reach 19. Request patient retail sales representative bring adaptive equipment/mobility aids from home or obtain and provide as needed 20. Consult pharmacy regarding effects of med's affecting mobility, cognition, and alternatives 21. Obtain physician order for PT if risk factors associated with mobility are present 22. Obtain physician order for OT as appropriate 23. Utilize diversional activities 24. Educate patient and patient retail sales representative how to maintain a safe environment during visitationtimes (notify nurse prior to leaving bedside) 25. Consider appropriateness of medical or non-medical record librarians teacher 26. Set up voiding schedule as appropriate (every 2 hours) Outcome: Progressing Note: Evaluation of progress towards goal: fall bundle Problem: Potential for Compromised Skin Integrity Goal: Skin integrity is maintained or improved Description: Patient's goal is: INTERVENTIONS 1. Perform initial skin assessment on admission and as needed 2. Turn patient every 2 hours and PRN 3. Relieve pressure to bony prominences 4. Avoid shearing 5. Keep skin clean and dry 6. Alternate a full bath with partial baths for elderly 7. Apply lotion/moisturizer on skin 8. Monitor patient's hygiene practices 9. Float heels 10. Collaborate with interdisciplinary team and initiate plans and interventions as needed Outcome: Progressing Note: Evaluation of progress towards goal: q2h turns Goal: Patient's nutritional intake is adequate Description: Patient's goal is: INTERVENTIONS 1. Assess and monitor food intake and supplements, patient food preferences, nausea, vomiting, labs, oral cavity (gums, teeth, tongue, mucosa), proper denture fit, and cultural beliefs 2. Monitor for signs of hypoglycemia and hyperglycemia 3. Collaborate with interdisciplinary team and initiate plan and interventions as ordered 4. Monitor patient's weight 5. Assist patient with meals/food selection 6. Assist patient with eating 7. Allow adequate time for meals 8. Provide pleasant environment during mealtime 9. Increase social contact during mealtimes 10. Plan activities to conserve energy 11. Encourage/perform oral hygiene as appropriate 12. Encourage patient to take dietary supplement as ordered 13. Collaborate with clinical sheet metal pattern cutter 14. Include patient/ patient's retail sales representative in decisions related to nutrition Outcome: Progressing Note: Evaluation of progress towards goal: I&O's Problem: Urinary Incontinence Goal: Perineal skin integrity is maintained or improved Description: INTERVENTIONS 1. Assess genitourinary system, perineal skin, labs (urinalysis), and history of incontinence to include past management, aggravating, and alleviating factors 2. Keep skin clean and dry 3. Apply skin protectant 4. Develop skin care regimen 5. Provide privacy when changing patients incontinence device to maintain their dignity 6. Consider placing an indwelling catheter 7. Collaborate with interdisciplinary team and initiate plans and interventions as needed Outcome: Progressing Note: Evaluation of progress towards goal: scheduled toileting Problem: Inadequate Gas Exchange Goal: Patient is adequately oxygenated and ventilation is improved Description: Patient's goal is: INTERVENTIONS 1. Monitor vital signs, oxygen saturation, respiratory status to include rate, depth, effort, lung sounds, mental status, cyanosis, and labs (ABGs) 2. Administer oxygen as indicated 3. Position patient to optimize gas exchange 4. Instruct patient to turn, cough, and deep breathe; encourage incentive spirometer if indicated 5. Collaborate with Respiratory Therapy for inhaled medication and therapeutic adjuncts 6. Assess skin when indicated 7. Coordinate care and interventions to conserve energy 8. Educate and offer resources for tobacco cessation, if indicated Outcome: Progressing Note: Evaluation of progress towards goal: wdl * PROPRIETARY TRADER Procedure Note - Tatiana Perry CCC-PROPRIETARY TRADER - 03/19/2025 10:12 AM EST Speech Therapy Videofluoroscopic Swallow Study Evaluation and Treatment Note Discharge Recommendations for Safe Patient Transition PROPRIETARY TRADER Therapy Recommendations: Continue ST services Current Impairments Informing Therapy Recommendation: Swallowing Recommendations Diet Level: Level 4 Pureed Liquid Level: No liquids Alternate Means Of:: Nutrition, Hydration Compensatory Strategies: Follow aspiration precautions, One sip/bite at a time, Small sips/bites Supervision/Positioning: Patient at 90 degrees for all PO intake (including medication), Supervise all PO intake, Patient to remain upright 15 minutes after meals Medications: In applesauce/puree, Crushed Referrals: Dysphagia therapy, Ticket Scheduler Cassandra for Level 4 Pureed Diet (PU4) with NO LIQUIDS. Large amount of aspiration with all liquid consistencies. Recommend meds crushed in puree. Impressions Oral Phase: Moderate Pharyngeal Phase: Severe Functional Oral Intake Scale: Total oral intake of a single consistency Plan Frequency: 2-3days/week Duration: Until discharge Treatments/Modalities: Safety strategies, Oral motor treatment plan, Pharyngeal strengthening Need for skilled Speech Language Pathology Services to address deficits in feeding/swallowing due to a status decline resulting from sepsis. Pt educated on purpose of exam, contrast administration, and procedural techniques prior to initiation of exam. Pt educated on diet recommendations, plan of care, and encouraged to use safety strategies in order to maintain safe PO intake following exam. Prognosis Services: Skilled PROPRIETARY TRADER services to address above deficits Prognosis/Potential: Good Considerations: Age, Cognition Assessment Baseline Assessment Allergies Marked As Reviewed: Complete Consistencies Tested Views: Lateral position Level 0 Thin: Spoon, Cup, Straw Level 2 Mildly Thick: Cup, Straw Level 3 Moderately Thick: Cup, Straw Level 4 Pureed: Spoon Level 6 Soft & Bite-Sized: Spoon Modified Barium Swallow Impairment Profile (MBSImP) Oral Impairment: Yes Component 1: Lip Closure: escape from interlabial space or lateral junction, no extension beyond saadia border Component 2: Tongue Control During Bolus Hold: posterior escape of less than half of bolus Component 3: Bolus Preparation/Mastication: minimal chewing/mashing with majority of bolus unchewed Component 4: Bolus Transport/Lingual Motion: repetitive/disorganized tongue motion Component 5: Oral Residue: residue collection on oral structures Component 6: Initiation of Pharyngeal Swallow: bolus head in pyriforms Pharyngeal Impairment: Yes Component 7: Soft Palate Elevation: no bolus between soft palate/posterior pharyngeal wall Component 8: Laryngeal Elevation: partial superior movement of thyroid cartilage/partial approximation of arytenoids to epiglottic petiole Component 9: Anterior Hyoid Excursion: partial anterior movement Component 10: Epiglottic Movement: partial inversion Component 11: Laryngeal Vestibular Closure - Height of the Swallow: none, wide column of contrast/air in laryngeal vestibule Component 12: Pharyngeal Stripping Wave: present - diminished Component 13: Pharyngeal Contraction (A/P view only): bilateral bulging Component 14: Pharyngoesophageal Segment Opening: minimal distension/minimal duration, marked obstruction of flow Component 15: Tongue Base Retraction: wide column of contrast/air between tongue base and posteriorpharyngeal wall Component 16: Pharyngeal Residue: majority of contrast within or on pharyngeal structures MBSImP Overall Impression Scores Oral Impairment Total: 15 Pharyngeal Impairment Total: 17 Penetration/Aspiration Scale Penetration/Aspiration Scale Performed: Yes Level 0 Thin: Contrast entered the airway, passed below the vocal folds, and no effort was made to eject Level 2 Mildly Thick: Contrast entered the airway, passed below the vocal folds, and no effort was made to eject Level 3 Moderately Thick: Contrast entered the airway, passed below the vocal folds, and no effort was made to eject Level 4 Pureed: Contrast did not enter the airway Level 6 Soft & Bite-Sized: Contrast did not enter the airway Trialed Compensatory Strategies Strategies Utilized: Small sips/bites, Double swallow, Controlled bolus Effective: No Pain Assessment Pain Assessment: No/denies pain Plan Diagnosis Code Swallowing: R13.12 Dysphagia, oropharyngeal phase Speech Therapy Care Plan Speech Therapy Care Plan (Active) Template: ST - Dysphagia Problem: Swallowing Dates: Start: 03/17/25 Disciplines: PROPRIETARY TRADER Goal: LTG: Patient will maintain adequate nutrition/ hydration with optimum safety and efficiency of swallowing function of oral intake without overt signs/symptoms of aspiration for the highest appropriate diet level Dates: Start: 03/17/25 Expected End: 04/17/25 Disciplines: PROPRIETARY TRADER Outcomes Date/Time User Outcome 03/19/25 1027 CHARLES Bhatti Progressing Goal: STG: Patient will complete safety strategies with minimal assistance during PO intake 90% of the time Dates: Start: 03/17/25 Expected End: 04/17/25 Disciplines: PROPRIETARY TRADER Outcomes Date/Time User Outcome 03/19/25 1027 CHARLES Bhatti Progressing Speech Therapy Care Plan (Resolved) There are no resolved problems. Principal Problem: Sepsis with encephalopathy and septic shock, due to unspecified organism ([facility] * Situational Awareness - Landy Ness MD - 03/19/2025 10:08 AM EST [facility] Transfer Accept Note I have received a request for transfer of primary service for this patient from the ICU team .. Clinical handoff report was given. [facility] will assume care as primary team of this patient today. LANDY NESS MD 03/19/2025 * Discharge Planning Note - Luh Mcghee RN - 03/19/2025 9:47 AM EST DISCHARGE PLANNING NOTE Attempted to reach pt brother Reilly left a VM to call care navigation back * Plan of Care - Ole Best MD - 03/19/2025 7:52 AM EST ICU TRANSFER NOTE Date of Admission: 03/16/2025 ICU Length of Stay: 6h Primary Diagnosis: Acute on chronic hypoxic respiratory failure secondary to pneumonia Metabolic encephalopathy secondary to above Symptomatic hypotension requiring pressor Heart failure with reduced EF Recent ESBL E coli UTI Tremor ESRD on hemodialysis (T/T/S) Chronic Problems: Paroxysmal Afib Hyperglycemia with type 2 diabetes mellitus Mildly elevated troponin-type 2 demand ischemia COPD not on exacerbation-baseline 2 L oxygen at home History of CAD status post stent History of CABG Anemia of chronic disease Consults: Nephrology Brief ICU Course Timmy Muñoz is a 70 y.o. male with a past medical history of COPD on 2 L oxygen at baseline, history of CAD status post stent, history of CABG, ischemic cardiomyopathy, HFrEF (last echo showed EFof 35%), paroxysmal Afib on Eliquis, hypertension, ESRD on hemodialysis (T/T/S), type 2 diabetes mellitus he has been admitted to ICU for septic shock. [facility] ED course: Patient initially presented yesterday at [facility] via EMS with history of altered mental status. Patient was found to have left-sided deficit, facial droop and slurring of speech. Stroke alert was called at [facility]. Of note, patient was recently discharged on 03/01/2025 where he was admitted for ESBL E coli UTI and new onset tremors. Patient was treated with IV Invanz. Pertinent labs: WBC 9.4, hemoglobin 9.4, creatinine 3.13, lactate 1.3, urinalysis negative for leukocyte and nitrate, troponin 29 Imaging: CT brain was negative for acute pathology. Chest x-ray showed right lower lobe infiltrate. After negative imaging, stroke signed off with altered mental status most likely secondary to infectious etiology. Patient was given 500 mL normal saline, cefepime and vancomycin Patient was planned to be transferred to [facility]. In route, patient was hypotensive, unresponsive and febrile. Patient was taken back to [facility], femoral central line was placed and was started on Levophed and transferred toT. Upon arrival in the ICU, heart rate 96, blood pressure 150/72, respiratory rate 18, saturation 91% on room air. Patient is alert but confused and does not follow commands. 1. Acute on chronic hypoxic respiratory failure - secondary to pneumonia CXR: Right lower lobe infiltrate (stable on 03/16). Infectious workup: Urine Legionella & Strep pneumo antigens: negative Respiratory pathogen panel: negative MRSA PCR: negative Blood cultures: no growth at 36 hours Sputum culture: pending/not collected Oxygen: SpO? 100% on 2 L NC. Antibiotics: Meropenem 500 mg IV q24h (Day 3). Plan: Continue antibiotics; repeat CXR. 2. Metabolic encephalopathy - improving Secondary to pneumonia and hypotension. Mental status improved. 3. Symptomatic hypotension - likely medication related Likely due to morphine received en route. No evidence of end-organ damage; lactate normal. Previously required vasopressor support; Levophed discontinued on 03/16 at 22:25. Midodrine 10 mg TID resumed. Plan: Monitor BP; no current vasopressor requirement. 4. Heart failure with reduced EF (35% with grade 3 diastolic dysfunction, 01/2025) Stable. Continue guideline-directed therapy as tolerated. 5. Paroxysmal atrial fibrillation Resume Aspirin and Eliquis. 6. ESRD on hemodialysis (/) - Nephrology consulted for dialysis management. 7. Hyperglycemia with type 2 diabetes mellitus 8. Mildly elevated troponin - type 2 demand ischemia No chest pain. No EKG changes. 9. Recent ESBL E. coli UTI 03/15 urine culture: Enterococcus species. On Meropenem. 10. COPD (not in exacerbation) Baseline 2 L home O?. 11. CAD status post stent 12. History of CABG Continue CAD secondary prevention as tolerated. 13. Anemia of chronic disease Stable. Things to Follow: Continue supplemental oxygen to maintain SpO? >90%. Continue Meropenem 500 mg IV q24h. Resume Aspirin, Eliquis, and home cardiac medications as tolerated. Resume midodrine 10 mg TID. No vasopressors needed; monitor BP. Nephrology to continue hemodialysis management (//). Medium-dose insulin sliding scale. Resume home psychiatric medications. Swallow evaluation completed ? Level 4 pureed diet, no liquids. Video swallow study pending Repeat CXR today morning. Routine monitoring on the medical floor. Ole Best, PGY1 Internal Medicine Resident [facility] * Plan of Care - Kimberly Johnson RCP - 03/18/2025 10:20 PM EST Problem: Inadequate Gas Exchange Goal: Patient is adequately oxygenated and ventilation is improved Description: Patient's goal is: INTERVENTIONS 1. Monitor vital signs, oxygen saturation, respiratory status to include rate, depth, effort, lung sounds, mental status, cyanosis, and labs (ABGs) 2. Administer oxygen as indicated 3. Position patient to optimize gas exchange 4. Instruct patient to turn, cough, and deep breathe; encourage incentive spirometer if indicated 5. Collaborate with Respiratory Therapy for inhaled medication and therapeutic adjuncts 6. Assess skin when indicated 7. Coordinate care and interventions to conserve energy 8. Educate and offer resources for tobacco cessation, if indicated Outcome: Progressing Flowsheets (Taken 03/18/20252219) Chest Assessment: Chest expansion symmetrical Note: Evaluation of progress towards goal: reviewed and continued Respiratory Therapy Clinical Practice Guidelines Consult Clinical Practice Guidelines Ordered Consult Assessment: Oxygen, Bronchodilator Oxygen Indications: Home oxygen use Bronchodilator Indications: Home regimen Bronchodilator Total: 2 Vital Signs Pulse: 82 Heart Rate Source: Monitor Resp: 23 SpO2: 90 % O2 Device: Nasal cannula O2 Flow Rate (L/min): 2 L/min FiO2 (%): 28 % Respiratory Assessment Assessment Type: Post-treatment Level of Consciousness: Responds to Voice Respiratory Pattern: Regular Chest Assessment: Chest expansion symmetrical Bilateral Breath Sounds: Clear, Diminished Patient Active Problem List Diagnosis Has a tremor Atrial fibrillation, chronic ([facility]) Type 2 diabetes mellitus with hyperglycemia ([facility]) Chronic obstructive pulmonary disease ([facility]) Acute systolic (congestive) heart failure ([facility]) End stage renal disease ([facility]) Sepsis with encephalopathy and septic shock, due to unspecified organism ([facility]) Last Chest XRAY: Reviewed Pulmonary History: reviewed RT Reassessment Due In: 12 hours Bronchodilator Respiratory Rate Level 1: Less than 20 Dyspnea Level 1: No SOB Breath Sounds Level 2: Diminished and/or faint wheezes Respiratory History Level 2: Positive risk factors including but not limited to: History of smoking; History of pulmonary complications ; Smoke inhalation, physical/chemical trauma to the lung or upper airway Oxygen to Keep SpO2 Greater Than Or Equal To 92% Level 2: 1-3 LPM 25%-35% or NIV 41 - 50% Peak Flow ([employer] Only) Level 1: Greater than 80% predicted or personal best Patients Current Level & Intervention: 2 Three times daily and Q4 PRN for wheezing * Plan of Care - [place] العراقي RN - 03/18/2025 7:49 PM EST Problem: Pain Goal: Patient goal is pain score less than 4, able to rest, and participant in treatment plan as appropriate Description: INTERVENTIONS: 1. Encourage patient or legal retail sales representative to report early pain and ask for pain medicine when needed 2. Assess pain using appropriate pain scale and include the scale used when documenting 3. Administer analgesics based on type and severity of pain and evaluate response within appropriate time frame 4. Implement non-pharmacological measures as appropriate and evaluate response 5. Consider cultural and social influences on pain and pain management 6. Notify LIP if interventions ineffective or patient reports new pain 7. Monitor vital signs including pulse ox, end-tidal CO2 based on pain intervention 8. Reassess pain per policy 9. Teach patient or legal retail sales representative interventions for comforting Outcome: Progressing Note: Evaluation of progress towards goal: Patient will be monitored and assessed for pain this shift Problem: Safety Goal: Patient will be injury free during hospitalization Description: INTERVENTIONS: 1. Assess patient's risk for falls and implement fall prevention plan of care per policy 2. Provide and maintain a safe environment 3. Proper use of double Identifiers 4. Medication administration using the 5 rights 5. Hand hygiene 6. Specimens are labeled at the bedside 7. Instruct patient/ patient retail sales representative about use of safety devices 8. Include patient/ patient retail sales representative in decisions related to safety Outcome: Progressing Note: Evaluation of progress towards goal: Patient will remain free from falls and injuries this shift. Problem: Infection Goal: Absence of infection during hospitalization Description: INTERVENTIONS 1. Assess and monitor for signs and symptoms of infection. 2. Monitor lab/diagnostic results. 3. Monitor all insertion sites i.e., indwelling lines, tubes and drains. 4. Monitor endotracheal (as able) and nasal secretions for changes in amount and color. 5. Administer medications as ordered. 6. Instruct and encourage patient and family to use good hand hygiene technique. 7. Identify and instruct patient/patient retail sales representative in use of appropriate isolation precautionsfor identified infection/symptoms. 8. Provide and discuss with patient/patient retail sales representative on educational MDRO sheet. 9. Encourage and monitor nutritional status daily and consult sheet metal pattern cutter if indicated. 10. Implement neutropenic guidelines as needed. Outcome: Progressing Note: Evaluation of progress towards goal: Patient will be monitored and assessed for new signs of infections this shift. Problem: Knowledge Deficit Goal: Patient/patient retail sales representative demonstrates understanding of disease process, treatment plan,medications, and discharge instructions Description: INTERVENTIONS 1. Complete learning assessment and assess knowledge base 2. Provide teaching at level of understanding 3. Provide teaching via preferred learning method(s) Outcome: Progressing Note: Evaluation of progress towards goal: Patient will be assessed and educated for knowledge of disease process this shift. Problem: Discharge Planning Goal: Discharge to post-acute care, other facility, or home with appropriate resources Description: Patient's goal is: INTERVENTIONS 1. Conduct assessment to determine patient/family and health care team treatment goals, and need for post-acute services based on payer coverage, community resources, and patient preferences, and barriers to discharge 2. Coordinate with Social work, Care Navigation, and Utilization Review to arrange appropriate level of services according to patient's needs based on patient preference and payer coverage in collaboration with the physician and health care team 3. Address psychosocial, clinical, and financial barriers to discharge as identified in assessment in conjunction with the patient/family and health care team 4. Consult appropriate ancillary services (i.e.. PT/OT/ST, etc) as needed 5. Communicate with and update the patient/family, physician, and health care team regarding progress on the discharge plan 6. Identify discharge learning needs (meds, wound care, etc). 7. Arrange for needed discharge transportation as appropriate Outcome: Progressing Note: Evaluation of progress towards goal: Patient will be discharged with proper resources. Problem: Glucose Imbalance Goal: Patient's discharge needs are met Description: Patient's goal is: INTERVENTIONS 1. Assess patient for self-management skills 2. Encourage participation in diabetes management 3. Identify potential discharge barriers on admission and throughout hospital stay 4. Involve patient/S.O. in discharge planning process 5. Communicate referral to paraeducator as appropriate 6. Communicate referral to sheet metal pattern cutter as appropriate 7. Collaborate with case management/social service agency director for discharge needs Outcome: Progressing Note: Evaluation of progress towards goal: Patient will be discharged with proper resources. Problem: Multi-Drug Resistant Organism / Rule-Out Infection Prevention Goal: Prevent transmission of infection Description: INTERVENTIONS 1. Place patient in private room or in room with patient with same disease 2. Discard single-use items 3. Clean reusable equipment between patients 4. Wear gloves for direct and indirect contact with patient or contaminants 5. Change gloves between tasks and procedures 6. Wash hands before and after caring for each patient 7. Wear appropriate personal protective equipment in relation to the indicated isolation type 8. Place appropriate isolation signage on patient's door 9. Provide patient/ patient retail sales representative with isolation education. Outcome: Progressing Note: Evaluation of progress towards goal: Patient will be monitored and assessed for new signs of infections this shift. Problem: Safety - Medical Restraint Goal: Remains free of injury from restraints (Restraint for Interference with Rehabilitation Services Manager) Description: INTERVENTIONS: 1. Determine that other, less restrictive measures have been tried or would not be effective beforeapplying the restraint 2. Evaluate the patient's condition at the time of restraint application 3. Inform patient/family regarding the reason for restraint 4. Q2H: Monitor safety, Vital signs, psychosocial status, signs of injury, skin integrity, circulation, neurovascular status in affected extremities, respiratory status, comfort, nutrition and hydration, hygiene, ROM, elimination needs 5. Doctor will be notified of restraint 6. RN properly applies restraints per physician order Outcome: Progressing Note: Evaluation of progress towards goal: Patient not in restraints Problem: Moderate - High Risk Fall Score Description: Pepe Anna Score of =/> 25 or indicated by [facility] Assessment Goal: Patient should be free from fall Description: Interventions: 1. [place] to environment 2. Hourly rounds addressing the 4 P's (Pain, Positioning, Possessions, Potty) 3. Clear area of hazards (spills, clutter, electrical cords, unnecessary equipment) 4. Place equipment (bed & TV controls, call light, phone, urinal) within reach 5. Encourage patient to wear glasses and hearing aides as appropriate 6. Maintain bed in lowest position 7. Lock wheels on bed/wheelchair 8. Provide adequate lighting, including night light 9. Assess need for additional bedding, food/fluids, pain med's prior to sleep/routinely 10. Provide gripper slippers or personal non-skid footwear 11. Teach patient and patient retail sales representative to maintain environment for safety and engage in all aspects of fall prevention program 12. Remind patient to call for help before getting out of bed 13. Initiate bed/chair/exit alarms supportive devices as appropriate, (chair wedge, no-skid floor mat, raised edge mattress, hip protectors) 14. Locate patient bed assignment for optimal visualization 15. Evaluate and identify Safe Patient Handling Equipment needs 16. Provide supervision when out of bed or chair 17. Utilize gait belt as needed to assist with ambulation 18. Place adaptive equipment (cane, walker) within reach 19. Request patient retail sales representative bring adaptive equipment/mobility aids from home or obtain and provide as needed 20. Consult pharmacy regarding effects of med's affecting mobility, cognition, and alternatives 21. Obtain physician order for PT if risk factors associated with mobility are present 22. Obtain physician order for OT as appropriate 23. Utilize diversional activities 24. Educate patient and patient retail sales representative how to maintain a safe environment during visitationtimes (notify nurse prior to leaving bedside) 25. Consider appropriateness of medical or non-medical record librarians teacher 26. Set up voiding schedule as appropriate (every 2 hours) Outcome: Progressing Note: Evaluation of progress towards goal: Patient will remain free from falls this shift. Problem: Potential for Compromised Skin Integrity Goal: Skin integrity is maintained or improved Description: Patient's goal is: INTERVENTIONS 1. Perform initial skin assessment on admission and as needed 2. Turn patient every 2 hours and PRN 3. Relieve pressure to bony prominences 4. Avoid shearing 5. Keep skin clean and dry 6. Alternate a full bath with partial baths for elderly 7. Apply lotion/moisturizer on skin 8. Monitor patient's hygiene practices 9. Float heels 10. Collaborate with interdisciplinary team and initiate plans and interventions as needed Outcome: Progressing Note: Evaluation of progress towards goal: Patient will be repositioned every 2 hours this shift. Problem: Potential for Compromised Skin Integrity Goal: Patient's nutritional intake is adequate Description: Patient's goal is: INTERVENTIONS 1. Assess and monitor food intake and supplements, patient food preferences, nausea, vomiting, labs, oral cavity (gums, teeth, tongue, mucosa), proper denture fit, and cultural beliefs 2. Monitor for signs of hypoglycemia and hyperglycemia 3. Collaborate with interdisciplinary team and initiate plan and interventions as ordered 4. Monitor patient's weight 5. Assist patient with meals/food selection 6. Assist patient with eating 7. Allow adequate time for meals 8. Provide pleasant environment during mealtime 9. Increase social contact during mealtimes 10. Plan activities to conserve energy 11. Encourage/perform oral hygiene as appropriate 12. Encourage patient to take dietary supplement as ordered 13. Collaborate with clinical sheet metal pattern cutter 14. Include patient/ patient's retail sales representative in decisions related to nutrition Outcome: Progressing Note: Evaluation of progress towards goal: Patient will be assessed and given adequate nutrition this shift * Discharge Planning Note - Carolin Isidro - 03/18/2025 3:53 PM EST DISCHARGE PLANNING NOTE Clinical updates sent to [facility], [facility] in [place] (P# ; F# ) * Discharge Planning Note - Jozef Barahona RN - 03/18/2025 11:10 AM EST DISCHARGE PLANNING NOTE Hand Spring Repairer Helper attempted to reach patient brother by call for discharge planning assessment. Call was not answered and a voicemail was left explaining reason for call and requesting a return call. Care navigation will continue to follow for opportunity to speak with patient family. - Jozef Barahona RN 03/18/25 11:12 AM Hand Spring Repairer Helper has not received a return call from patient brother. Another attempt to reach brother by call was made and call was not answered. - Jozef Barahona RN 03/18/25 3:44 PM * Plan of Care - Trena Priest RN - 03/18/2025 9:59 AM EST Problem: Pain Goal: Patient goal is pain score less than 4, able to rest, and participant in treatment plan as appropriate Description: INTERVENTIONS: 1. Encourage patient or legal retail sales representative to report early pain and ask for pain medicine when needed 2. Assess pain using appropriate pain scale and include the scale used when documenting 3. Administer analgesics based on type and severity of pain and evaluate response within appropriate time frame 4. Implement non-pharmacological measures as appropriate and evaluate response 5. Consider cultural and social influences on pain and pain management 6. Notify LIP if interventions ineffective or patient reports new pain 7. Monitor vital signs including pulse ox, end-tidal CO2 based on pain intervention 8. Reassess pain per policy 9. Teach patient or legal retail sales representative interventions for comforting Outcome: Progressing Note: Evaluation of progress towards goal: Patient pain assessed and reassessed using verbal pain score per policy. Problem: Safety Goal: Patient will be injury free during hospitalization Description: INTERVENTIONS: 1. Assess patient's risk for falls and implement fall prevention plan of care per policy 2. Provide and maintain a safe environment 3. Proper use of double Identifiers 4. Medication administration using the 5 rights 5. Hand hygiene 6. Specimens are labeled at the bedside 7. Instruct patient/ patient retail sales representative about use of safety devices 8. Include patient/ patient retail sales representative in decisions related to safety Outcome: Progressing Note: Evaluation of progress towards goal: patient remains free of injury during hospitalization Problem: Infection Goal: Absence of infection during hospitalization Description: INTERVENTIONS 1. Assess and monitor for signs and symptoms of infection. 2. Monitor lab/diagnostic results. 3. Monitor all insertion sites i.e., indwelling lines, tubes and drains. 4. Monitor endotracheal (as able) and nasal secretions for changes in amount and color. 5. Administer medications as ordered. 6. Instruct and encourage patient and family to use good hand hygiene technique. 7. Identify and instruct patient/patient retail sales representative in use of appropriate isolation precautionsfor identified infection/symptoms. 8. Provide and discuss with patient/patient retail sales representative on educational MDRO sheet. 9. Encourage and monitor nutritional status daily and consult sheet metal pattern cutter if indicated. 10. Implement neutropenic guidelines as needed. Outcome: Progressing Note: Evaluation of progress towards goal: Patient labs drawn and monitored, sites assessed and reassessed for signs and symptoms of infection. Problem: Knowledge Deficit Goal: Patient/patient retail sales representative demonstrates understanding of disease process, treatment plan,medications, and discharge instructions Description: INTERVENTIONS 1. Complete learning assessment and assess knowledge base 2. Provide teaching at level of understanding 3. Provide teaching via preferred learning method(s) Outcome: Progressing Note: Evaluation of progress towards goal: Patient does demonstrate some understanding of information provided. Will continue to reassess and reinforce as needed. Problem: Discharge Planning Goal: Discharge to post-acute care, other facility, or home with appropriate resources Description: Patient's goal is: INTERVENTIONS 1. Conduct assessment to determine patient/family and health care team treatment goals, and need for post-acute services based on payer coverage, community resources, and patient preferences, and barriers to discharge 2. Coordinate with Social work, Care Navigation, and Utilization Review to arrange appropriate level of services according to patient's needs based on patient preference and payer coverage in collaboration with the physician and health care team 3. Address psychosocial, clinical, and financial barriers to discharge as identified in assessment in conjunction with the patient/family and health care team 4. Consult appropriate ancillary services (i.e.. PT/OT/ST, etc) as needed 5. Communicate with and update the patient/family, physician, and health care team regarding progress on the discharge plan 6. Identify discharge learning needs (meds, wound care, etc). 7. Arrange for needed discharge transportation as appropriate Outcome: Progressing Note: Evaluation of progress towards goal: Patient not appropriate for discharge at this time. Problem: Glucose Imbalance Goal: Clinical indication of glucose balance is achieved Description: Patient's goal is: INTERVENTIONS 1. Monitor blood glucose levels as ordered 2. Administer medications as ordered 3. Notify physician of ineffective treatment plan Outcome: Progressing Note: Evaluation of progress towards goal: Glucose balance is achieved. BS checked PRN and per policy. Insulin given as needed. Problem: Glucose Imbalance Goal: Patient's discharge needs are met Description: Patient's goal is: INTERVENTIONS 1. Assess patient for self-management skills 2. Encourage participation in diabetes management 3. Identify potential discharge barriers on admission and throughout hospital stay 4. Involve patient/S.O. in discharge planning process 5. Communicate referral to paraeducator as appropriate 6. Communicate referral to sheet metal pattern cutter as appropriate 7. Collaborate with case management/social service agency director for discharge needs Outcome: Progressing Note: Evaluation of progress towards goal: Patient not appropriate for discharge at this time. Problem: Multi-Drug Resistant Organism / Rule-Out Infection Prevention Goal: Prevent transmission of infection Description: INTERVENTIONS 1. Place patient in private room or in room with patient with same disease 2. Discard single-use items 3. Clean reusable equipment between patients 4. Wear gloves for direct and indirect contact with patient or contaminants 5. Change gloves between tasks and procedures 6. Wash hands before and after caring for each patient 7. Wear appropriate personal protective equipment in relation to the indicated isolation type 8. Place appropriate isolation signage on patient's door 9. Provide patient/ patient retail sales representative with isolation education. Outcome: Progressing Note: Evaluation of progress towards goal: Patient labs drawn and monitored, sites assessed and reassessed for signs and symptoms of infection. Problem: Safety - Medical Restraint Goal: Remains free of injury from restraints (Restraint for Interference with Rehabilitation Services Manager) Description: INTERVENTIONS: 1. Determine that other, less restrictive measures have been tried or would not be effective beforeapplying the restraint 2. Evaluate the patient's condition at the time of restraint application 3. Inform patient/family regarding the reason for restraint 4. Q2H: Monitor safety, Vital signs, psychosocial status, signs of injury, skin integrity, circulation, neurovascular status in affected extremities, respiratory status, comfort, nutrition and hydration, hygiene, ROM, elimination needs 5. Doctor will be notified of restraint 6. RN properly applies restraints per physician order Outcome: Progressing Note: Evaluation of progress towards goal: Patient assessed and reassessed for s/s of restraint injury at least Q2 hours. Patient remains free from injury. Problem: Safety - Medical Restraint Goal: Free from restraint(s) (Restraint for Interference with Rehabilitation Services Manager) Description: INTERVENTIONS: 1. ONCE/SHIFT or MINIMUM Q12H: Assess and document the continuing need for restraints 2. Order is valid for the duration of the episode of care 3. Discontinue at the earliest possible time once the reason for restraints no longer exists 4. Identify and implement measures to help patient regain control 5. Food, fluids, and toilet offered at a minimum of every 2 hours 6. RN modifies the patient's plan of care by entering a problem statement related to safety; individualizes the safety outcome Outcome: Progressing Note: Evaluation of progress towards goal: Patient assessed and reassessed for s/s of restraint injury at least Q2 hours. Patient remains free from injury. Problem: Moderate - High Risk Fall Score Description: Pepe Anna Score of =/> 25 or indicated by [facility] Assessment Goal: Patient should be free from fall Description: Interventions: 1. [place] to environment 2. Hourly rounds addressing the 4 P's (Pain, Positioning, Possessions, Potty) 3. Clear area of hazards (spills, clutter, electrical cords, unnecessary equipment) 4. Place equipment (bed & TV controls, call light, phone, urinal) within reach 5. Encourage patient to wear glasses and hearing aides as appropriate 6. Maintain bed in lowest position 7. Lock wheels on bed/wheelchair 8. Provide adequate lighting, including night light 9. Assess need for additional bedding, food/fluids, pain med's prior to sleep/routinely 10. Provide gripper slippers or personal non-skid footwear 11. Teach patient and patient retail sales representative to maintain environment for safety and engage in all aspects of fall prevention program 12. Remind patient to call for help before getting out of bed 13. Initiate bed/chair/exit alarms supportive devices as appropriate, (chair wedge, no-skid floor mat, raised edge mattress, hip protectors) 14. Locate patient bed assignment for optimal visualization 15. Evaluate and identify Safe Patient Handling Equipment needs 16. Provide supervision when out of bed or chair 17. Utilize gait belt as needed to assist with ambulation 18. Place adaptive equipment (cane, walker) within reach 19. Request patient retail sales representative bring adaptive equipment/mobility aids from home or obtain and provide as needed 20. Consult pharmacy regarding effects of med's affecting mobility, cognition, and alternatives 21. Obtain physician order for PT if risk factors associated with mobility are present 22. Obtain physician order for OT as appropriate 23. Utilize diversional activities 24. Educate patient and patient retail sales representative how to maintain a safe environment during visitationtimes (notify nurse prior to leaving bedside) 25. Consider appropriateness of medical or non-medical record librarians teacher 26. Set up voiding schedule as appropriate (every 2 hours) Outcome: Progressing Note: Evaluation of progress towards goal: Bed locked and low, hourly rounding performed, patient SPH needs assessed and reassessed PRN and per policy. Problem: Potential for Compromised Skin Integrity Goal: Patient's nutritional intake is adequate Description: Patient's goal is: INTERVENTIONS 1. Assess and monitor food intake and supplements, patient food preferences, nausea, vomiting, labs, oral cavity (gums, teeth, tongue, mucosa), proper denture fit, and cultural beliefs 2. Monitor for signs of hypoglycemia and hyperglycemia 3. Collaborate with interdisciplinary team and initiate plan and interventions as ordered 4. Monitor patient's weight 5. Assist patient with meals/food selection 6. Assist patient with eating 7. Allow adequate time for meals 8. Provide pleasant environment during mealtime 9. Increase social contact during mealtimes 10. Plan activities to conserve energy 11. Encourage/perform oral hygiene as appropriate 12. Encourage patient to take dietary supplement as ordered 13. Collaborate with clinical sheet metal pattern cutter 14. Include patient/ patient's retail sales representative in decisions related to nutrition Outcome: Progressing Note: Evaluation of progress towards goal: Patient appropriate for room service and eats independently. Nutritional status assessed and reassessed per policy. Problem: Urinary Incontinence Goal: Perineal skin integrity is maintained or improved Description: INTERVENTIONS 1. Assess genitourinary system, perineal skin, labs (urinalysis), and history of incontinence to include past management, aggravating, and alleviating factors 2. Keep skin clean and dry 3. Apply skin protectant 4. Develop skin care regimen 5. Provide privacy when changing patients incontinence device to maintain their dignity 6. Consider placing an indwelling catheter 7. Collaborate with interdisciplinary team and initiate plans and interventions as needed Outcome: Progressing Note: Evaluation of progress towards goal: Marla/ self care done PRN and per policy. * PT/OT/PROPRIETARY TRADER - CHARLES Smith - 03/18/2025 8:32 AM EST Speech Therapy PROPRIETARY TRADER Type of Visit: Medical deferral Reasons for Medical Deferral: ST services deferred by medical team Attempted to schedule VFSS; however, per RN pt not clinically appropriate at this time. * Plan of Care - Steffi Bledsoe RN - 03/17/2025 11:08 PM EST Problem: Pain Goal: Patient goal is pain score less than 4, able to rest, and participant in treatment plan as appropriate Description: INTERVENTIONS: 1. Encourage patient or legal retail sales representative to report early pain and ask for pain medicine when needed 2. Assess pain using appropriate pain scale and include the scale used when documenting 3. Administer analgesics based on type and severity of pain and evaluate response within appropriate time frame 4. Implement non-pharmacological measures as appropriate and evaluate response 5. Consider cultural and social influences on pain and pain management 6. Notify LIP if interventions ineffective or patient reports new pain 7. Monitor vital signs including pulse ox, end-tidal CO2 based on pain intervention 8. Reassess pain per policy 9. Teach patient or legal retail sales representative interventions for comforting Outcome: Progressing Note: Evaluation of progress towards goal: Numeric pain scale utilized * PT/OT/PROPRIETARY TRADER - CHARLES Le - 03/17/2025 11:05 AM EST Speech Therapy Bedside Swallow/ Feeding Evaluation Discharge Recommendations for Safe Patient Transition PROPRIETARY TRADER Therapy Recommendations: Continue ST services Recommendations Diet Level: Level 4 Pureed Liquid Level: No liquids Compensatory Strategies: Small sips/bites, One sip/bite at a time, Follow aspiration precautions Supervision/Positioning: Patient at 90 degrees for all PO intake (including medication), Patient toremain upright 15 minutes after meals Medications: Crushed, In applesauce/puree Referrals: VFSS Impressions Oral Dysphagia: Mild-moderate Pharyngeal Dysphagia Suspected: Yes Plan Frequency: 1-2days/week Duration: Until discharge Need for skilled Speech Language Pathology Services to address deficits in feeding/swallowing due to a status decline resulting from septic shock. Pt scheduled for VFSS; however, adamantly refusing and RN asked ST to see pt at bedside. OK for level 4 pureed diet with no liquids until VFSS can be completed. Prognosis Services: Skilled PROPRIETARY TRADER services to address above deficits Prognosis/Potential: Good Considerations: Previous level of function Assessment Baseline Assessment Additional Testing Results: Chest X-Ray, Computed Tomography Temperature Spikes Noted: No Behavior/Cognition: Alert, Agitated Patient Positioning: Upright in bed Baseline Vocal Quality: Wet/gurgly Volitional Cough: Weak Volitional Swallow: Delayed Laryngectomy: No Ability to Control Secretions: Yes Allergies Marked As Reviewed: Complete Oral/Motor Overall Oral/Motor Status: Exceptions to Within Functional Limits Labial ROM: Reduced Labial Strength: Reduced Labial Coordination: Reduced Lingual ROM: Reduced Lingual Strength: Reduced Lingual Coordination: Reduced Vocal Quality: Exceptions to WFL Wet: Mild Weak: Mild Vocal Intensity: Within Functional Limits Consistencies Assessed: Yes Level 0 Thin Presentation: Straw Oral: Suspect premature spillage Pharyngeal: Delayed swallow initiation, Decreased laryngeal elevation, Wet/gurgly vocal quality Level 4 Pureed Presentation: Spoon Oral: Decreased bolus formation, Decreased A-P propulsion Pharyngeal: Delayed swallow initiation Pain Assessment Pain Assessment: No/denies pain Plan Diagnosis Code Swallowing: R13.12 Dysphagia, oropharyngeal phase Speech Therapy Care Plan Speech Therapy Care Plan (Active) Template: ST - Dysphagia Problem: Swallowing Dates: Start: 03/17/25 Disciplines: PROPRIETARY TRADER Goal: LTG: Patient will maintain adequate nutrition/ hydration with optimum safety and efficiency of swallowing function of oral intake without overt signs/symptoms of aspiration for the highest appropriate diet level Dates: Start: 03/17/25 Expected End: 04/17/25 Disciplines: PROPRIETARY TRADER Goal: STG: Patient will complete safety strategies with minimal assistance during PO intake 90% of the time Dates: Start: 03/17/25 Expected End: 04/17/25 Disciplines: PROPRIETARY TRADER Speech Therapy Care Plan (Resolved) There are no resolved problems. Principal Problem: Sepsis with encephalopathy and septic shock, due to unspecified organism ([facility]) * Discharge Planning Note - Samy Schaefer - 03/17/2025 7:52 AM EST DISCHARGE PLANNING NOTE Referral for return sent to. [facility] formerly, [facility], [facility] in [place] (P#[phone] ; F# ) * Plan of Care - Georgia العراقي RN - 03/16/2025 9:19 PM EST Problem: Pain Goal: Patient goal is pain score less than 4, able to rest, and participant in treatment plan as appropriate Description: INTERVENTIONS: 1. Encourage patient or legal retail sales representative to report early pain and ask for pain medicine when needed 2. Assess pain using appropriate pain scale and include the scale used when documenting 3. Administer analgesics based on type and severity of pain and evaluate response within appropriate time frame 4. Implement non-pharmacological measures as appropriate and evaluate response 5. Consider cultural and social influences on pain and pain management 6. Notify LIP if interventions ineffective or patient reports new pain 7. Monitor vital signs including pulse ox, end-tidal CO2 based on pain intervention 8. Reassess pain per policy 9. Teach patient or legal retail sales representative interventions for comforting Outcome: Progressing Note: Evaluation of progress towards goal: Patient will be monitored and assessed for pain this shift Problem: Safety Goal: Patient will be injury free during hospitalization Description: INTERVENTIONS: 1. Assess patient's risk for falls and implement fall prevention plan of care per policy 2. Provide and maintain a safe environment 3. Proper use of double Identifiers 4. Medication administration using the 5 rights 5. Hand hygiene 6. Specimens are labeled at the bedside 7. Instruct patient/ patient retail sales representative about use of safety devices 8. Include patient/ patient retail sales representative in decisions related to safety Outcome: Progressing Note: Evaluation of progress towards goal: Patient will remain free from falls and injuries this shift. Problem: Infection Goal: Absence of infection during hospitalization Description: INTERVENTIONS 1. Assess and monitor for signs and symptoms of infection. 2. Monitor lab/diagnostic results. 3. Monitor all insertion sites i.e., indwelling lines, tubes and drains. 4. Monitor endotracheal (as able) and nasal secretions for changes in amount and color. 5. Administer medications as ordered. 6. Instruct and encourage patient and family to use good hand hygiene technique. 7. Identify and instruct patient/patient retail sales representative in use of appropriate isolation precautionsfor identified infection/symptoms. 8. Provide and discuss with patient/patient retail sales representative on educational MDRO sheet. 9. Encourage and monitor nutritional status daily and consult sheet metal pattern cutter if indicated. 10. Implement neutropenic guidelines as needed. Outcome: Progressing Note: Evaluation of progress towards goal: Patient will be monitored and assessed for new signs of infections this shift. Problem: Knowledge Deficit Goal: Patient/patient retail sales representative demonstrates understanding of disease process, treatment plan,medications, and discharge instructions Description: INTERVENTIONS 1. Complete learning assessment and assess knowledge base 2. Provide teaching at level of understanding 3. Provide teaching via preferred learning method(s) Outcome: Progressing Note: Evaluation of progress towards goal: Patient will be assessed and educated for knowledge of disease process this shift. Problem: Discharge Planning Goal: Discharge to post-acute care, other facility, or home with appropriate resources Description: Patient's goal is: INTERVENTIONS 1. Conduct assessment to determine patient/family and health care team treatment goals, and need for post-acute services based on payer coverage, community resources, and patient preferences, and barriers to discharge 2. Coordinate with Social work, Care Navigation, and Utilization Review to arrange appropriate level of services according to patient's needs based on patient preference and payer coverage in collaboration with the physician and health care team 3. Address psychosocial, clinical, and financial barriers to discharge as identified in assessment in conjunction with the patient/family and health care team 4. Consult appropriate ancillary services (i.e.. PT/OT/ST, etc) as needed 5. Communicate with and update the patient/family, physician, and health care team regarding progress on the discharge plan 6. Identify discharge learning needs (meds, wound care, etc). 7. Arrange for needed discharge transportation as appropriate Outcome: Progressing Note: Evaluation of progress towards goal: Patient will be discharged with proper resources. Problem: Glucose Imbalance Goal: Clinical indication of glucose balance is achieved Description: Patient's goal is: INTERVENTIONS 1. Monitor blood glucose levels as ordered 2. Administer medications as ordered 3. Notify physician of ineffective treatment plan Outcome: Progressing Note: Evaluation of progress towards goal: Goal: Patient's discharge needs are met Description: Patient's goal is: INTERVENTIONS 1. Assess patient for self-management skills 2. Encourage participation in diabetes management 3. Identify potential discharge barriers on admission and throughout hospital stay 4. Involve patient/S.O. in discharge planning process 5. Communicate referral to paraeducator as appropriate 6. Communicate referral to sheet metal pattern cutter as appropriate 7. Collaborate with case management/social service agency director for discharge needs Outcome: Progressing Note: Evaluation of progress towards goal: Patient will be discharged with proper resources. Problem: Multi-Drug Resistant Organism / Rule-Out Infection Prevention Goal: Prevent transmission of infection Description: INTERVENTIONS 1. Place patient in private room or in room with patient with same disease 2. Discard single-use items 3. Clean reusable equipment between patients 4. Wear gloves for direct and indirect contact with patient or contaminants 5. Change gloves between tasks and procedures 6. Wash hands before and after caring for each patient 7. Wear appropriate personal protective equipment in relation to the indicated isolation type 8. Place appropriate isolation signage on patient's door 9. Provide patient/ patient retail sales representative with isolation education. Outcome: Progressing Note: Evaluation of progress towards goal: Patient will be monitored and assessed for new signs of infections this shift. Problem: Safety - Medical Restraint Goal: Remains free of injury from restraints (Restraint for Interference with Rehabilitation Services Manager) Description: INTERVENTIONS: 1. Determine that other, less restrictive measures have been tried or would not be effective beforeapplying the restraint 2. Evaluate the patient's condition at the time of restraint application 3. Inform patient/family regarding the reason for restraint 4. Q2H: Monitor safety, Vital signs, psychosocial status, signs of injury, skin integrity, circulation, neurovascular status in affected extremities, respiratory status, comfort, nutrition and hydration, hygiene, ROM, elimination needs 5. Doctor will be notified of restraint 6. RN properly applies restraints per physician order Outcome: Progressing Note: Evaluation of progress towards goal: Pt remains appropriate for restraints due to continued risk of removal of lines and discontinuation of such. Goal: Free from restraint(s) (Restraint for Interference with Rehabilitation Services Manager) Description: INTERVENTIONS: 1. ONCE/SHIFT or MINIMUM Q12H: Assess and document the continuing need for restraints 2. Order is valid for the duration of the episode of care 3. Discontinue at the earliest possible time once the reason for restraints no longer exists 4. Identify and implement measures to help patient regain control 5. Food, fluids, and toilet offered at a minimum of every 2 hours 6. RN modifies the patient's plan of care by entering a problem statement related to safety; individualizes the safety outcome Outcome: Progressing Note: Evaluation of progress towards goal: Pt remains appropriate for restraints due to continued risk of removal of lines and discontinuation of such. Problem: Moderate - High Risk Fall Score Description: Pepe Anna Score of =/> 25 or indicated by [facility] Assessment Goal: Patient should be free from fall Description: Interventions: 1. [place] to environment 2. Hourly rounds addressing the 4 P's (Pain, Positioning, Possessions, Potty) 3. Clear area of hazards (spills, clutter, electrical cords, unnecessary equipment) 4. Place equipment (bed & TV controls, call light, phone, urinal) within reach 5. Encourage patient to wear glasses and hearing aides as appropriate 6. Maintain bed in lowest position 7. Lock wheels on bed/wheelchair 8. Provide adequate lighting, including night light 9. Assess need for additional bedding, food/fluids, pain med's prior to sleep/routinely 10. Provide gripper slippers or personal non-skid footwear 11. Teach patient and patient retail sales representative to maintain environment for safety and engage in all aspects of fall prevention program 12. Remind patient to call for help before getting out of bed 13. Initiate bed/chair/exit alarms supportive devices as appropriate, (chair wedge, no-skid floor mat, raised edge mattress, hip protectors) 14. Locate patient bed assignment for optimal visualization 15. Evaluate and identify Safe Patient Handling Equipment needs 16. Provide supervision when out of bed or chair 17. Utilize gait belt as needed to assist with ambulation 18. Place adaptive equipment (cane, walker) within reach 19. Request patient retail sales representative bring adaptive equipment/mobility aids from home or obtain and provide as needed 20. Consult pharmacy regarding effects of med's affecting mobility, cognition, and alternatives 21. Obtain physician order for PT if risk factors associated with mobility are present 22. Obtain physician order for OT as appropriate 23. Utilize diversional activities 24. Educate patient and patient retail sales representative how to maintain a safe environment during visitationtimes (notify nurse prior to leaving bedside) 25. Consider appropriateness of medical or non-medical record librarians teacher 26. Set up voiding schedule as appropriate (every 2 hours) Outcome: Progressing Note: Evaluation of progress towards goal: Patient will remain free from falls this shift. Problem: Potential for Compromised Skin Integrity Goal: Skin integrity is maintained or improved Description: Patient's goal is: INTERVENTIONS 1. Perform initial skin assessment on admission and as needed 2. Turn patient every 2 hours and PRN 3. Relieve pressure to bony prominences 4. Avoid shearing 5. Keep skin clean and dry 6. Alternate a full bath with partial baths for elderly 7. Apply lotion/moisturizer on skin 8. Monitor patient's hygiene practices 9. Float heels 10. Collaborate with interdisciplinary team and initiate plans and interventions as needed Outcome: Progressing Note: Evaluation of progress towards goal: Patient will be repositioned every 2 hours this shift. Goal: Patient's nutritional intake is adequate Description: Patient's goal is: INTERVENTIONS 1. Assess and monitor food intake and supplements, patient food preferences, nausea, vomiting, labs, oral cavity (gums, teeth, tongue, mucosa), proper denture fit, and cultural beliefs 2. Monitor for signs of hypoglycemia and hyperglycemia 3. Collaborate with interdisciplinary team and initiate plan and interventions as ordered 4. Monitor patient's weight 5. Assist patient with meals/food selection 6. Assist patient with eating 7. Allow adequate time for meals 8. Provide pleasant environment during mealtime 9. Increase social contact during mealtimes 10. Plan activities to conserve energy 11. Encourage/perform oral hygiene as appropriate 12. Encourage patient to take dietary supplement as ordered 13. Collaborate with clinical sheet metal pattern cutter 14. Include patient/ patient's retail sales representative in decisions related to nutrition Outcome: Progressing Note: Evaluation of progress towards goal: Patient will be assessed and given adequate nutrition this shift Problem: Urinary Incontinence Goal: Perineal skin integrity is maintained or improved Description: INTERVENTIONS 1. Assess genitourinary system, perineal skin, labs (urinalysis), and history of incontinence to include past management, aggravating, and alleviating factors 2. Keep skin clean and dry 3. Apply skin protectant 4. Develop skin care regimen 5. Provide privacy when changing patients incontinence device to maintain their dignity 6. Consider placing an indwelling catheter 7. Collaborate with interdisciplinary team and initiate plans and interventions as needed Outcome: Progressing Note: Evaluation of progress towards goal: Patient will be monitored and assessed every 2 hours forskin breakdown. * Discharge Planning Note - Jozef Barahona RN - 03/16/2025 3:46 PM EST DISCHARGE PLANNING NOTE Hand Spring Repairer Helper attempted to reach patient's brother by call to gain information for discharge planning assessment and did not receive an answer. A voicemail explaining purpose of call and requesting a call back was left. Care navigation will continue to follow for patient needs. Per [facility] documentation, the patient is a care home resident at [facility]. [facility] was tasked for a return referral. - Jozef Barahona RN 12/03/25 3:47 PM * Plan of Care - En Mitchell RN - 03/16/2025 7:28 AM EST Problem: Pain Goal: Patient goal is pain score less than 4, able to rest, and participant in treatment plan as appropriate Description: INTERVENTIONS: 1. Encourage patient or legal retail sales representative to report early pain and ask for pain medicine when needed 2. Assess pain using appropriate pain scale and include the scale used when documenting 3. Administer analgesics based on type and severity of pain and evaluate response within appropriate time frame 4. Implement non-pharmacological measures as appropriate and evaluate response 5. Consider cultural and social influences on pain and pain management 6. Notify LIP if interventions ineffective or patient reports new pain 7. Monitor vital signs including pulse ox, end-tidal CO2 based on pain intervention 8. Reassess pain per policy 9. Teach patient or legal retail sales representative interventions for comforting Outcome: Progressing Note: Evaluation of progress towards goal: Vital signs stable. Adult verbal pain score of 0. Will continue to monitor and assess. Problem: Safety Goal: Patient will be injury free during hospitalization Description: INTERVENTIONS: 1. Assess patient's risk for falls and implement fall prevention plan of care per policy 2. Provide and maintain a safe environment 3. Proper use of double Identifiers 4. Medication administration using the 5 rights 5. Hand hygiene 6. Specimens are labeled at the bedside 7. Instruct patient/ patient retail sales representative about use of safety devices 8. Include patient/ patient retail sales representative in decisions related to safety Outcome: Progressing Note: Evaluation of progress towards goal: Pt shows no signs of injury at this time. Will continue to monitor. Problem: Infection Goal: Absence of infection during hospitalization Description: INTERVENTIONS 1. Assess and monitor for signs and symptoms of infection. 2. Monitor lab/diagnostic results. 3. Monitor all insertion sites i.e., indwelling lines, tubes and drains. 4. Monitor endotracheal (as able) and nasal secretions for changes in amount and color. 5. Administer medications as ordered. 6. Instruct and encourage patient and family to use good hand hygiene technique. 7. Identify and instruct patient/patient retail sales representative in use of appropriate isolation precautionsfor identified infection/symptoms. 8. Provide and discuss with patient/patient retail sales representative on educational MDRO sheet. 9. Encourage and monitor nutritional status daily and consult sheet metal pattern cutter if indicated. 10. Implement neutropenic guidelines as needed. Outcome: Progressing Note: Evaluation of progress towards goal: Pt is slightly febrile at this time. CBC being monitored Problem: Knowledge Deficit Goal: Patient/patient retail sales representative demonstrates understanding of disease process, treatment plan,medications, and discharge instructions Description: INTERVENTIONS 1. Complete learning assessment and assess knowledge base 2. Provide teaching at level of understanding 3. Provide teaching via preferred learning method(s) Outcome: Progressing Note: Evaluation of progress towards goal: Pt. Unable to verbalize understanding of treatment and current medications. Will continue to reinforce in preparation for discharge. Problem: Discharge Planning Goal: Discharge to post-acute care, other facility, or home with appropriate resources Description: Patient's goal is: INTERVENTIONS 1. Conduct assessment to determine patient/family and health care team treatment goals, and need for post-acute services based on payer coverage, community resources, and patient preferences, and barriers to discharge 2. Coordinate with Social work, Care Navigation, and Utilization Review to arrange appropriate level of services according to patient's needs based on patient preference and payer coverage in collaboration with the physician and health care team 3. Address psychosocial, clinical, and financial barriers to discharge as identified in assessment in conjunction with the patient/family and health care team 4. Consult appropriate ancillary services (i.e.. PT/OT/ST, etc) as needed 5. Communicate with and update the patient/family, physician, and health care team regarding progress on the discharge plan 6. Identify discharge learning needs (meds, wound care, etc). 7. Arrange for needed discharge transportation as appropriate Outcome: Progressing Note: Evaluation of progress towards goal: Discharge plan is continuing to be discussed. Problem: Glucose Imbalance Goal: Clinical indication of glucose balance is achieved Description: Patient's goal is: INTERVENTIONS 1. Monitor blood glucose levels as ordered 2. Administer medications as ordered 3. Notify physician of ineffective treatment plan Outcome: Progressing Note: Evaluation of progress towards goal: Pt. maintaining blood glucose within parameters and receiving insulin PRN for elevations. Goal: Patient's discharge needs are met Description: Patient's goal is: INTERVENTIONS 1. Assess patient for self-management skills 2. Encourage participation in diabetes management 3. Identify potential discharge barriers on admission and throughout hospital stay 4. Involve patient/S.O. in discharge planning process 5. Communicate referral to paraeducator as appropriate 6. Communicate referral to sheet metal pattern cutter as appropriate 7. Collaborate with case management/social service agency director for discharge needs Outcome: Progressing Note: Evaluation of progress towards goal: Discharge plan is continuing to be discussed. Problem: Multi-Drug Resistant Organism / Rule-Out Infection Prevention Goal: Prevent transmission of infection Description: INTERVENTIONS 1. Place patient in private room or in room with patient with same disease 2. Discard single-use items 3. Clean reusable equipment between patients 4. Wear gloves for direct and indirect contact with patient or contaminants 5. Change gloves between tasks and procedures 6. Wash hands before and after caring for each patient 7. Wear appropriate personal protective equipment in relation to the indicated isolation type 8. Place appropriate isolation signage on patient's door 9. Provide patient/ patient retail sales representative with isolation education. Outcome: Progressing Note: Evaluation of progress towards goal: WBC being monitored. ABX given as ordered. Problem: Safety - Medical Restraint Goal: Remains free of injury from restraints (Restraint for Interference with Rehabilitation Services Manager) Description: INTERVENTIONS: 1. Determine that other, less restrictive measures have been tried or would not be effective beforeapplying the restraint 2. Evaluate the patient's condition at the time of restraint application 3. Inform patient/family regarding the reason for restraint 4. Q2H: Monitor safety, Vital signs, psychosocial status, signs of injury, skin integrity, circulation, neurovascular status in affected extremities, respiratory status, comfort, nutrition and hydration, hygiene, ROM, elimination needs 5. Doctor will be notified of restraint 6. RN properly applies restraints per physician order Outcome: Progressing Note: Evaluation of progress towards goal: Pt has no signs of injury at this time. Vitals, safety, skin integrity, and circulation monitored every two hours. Goal: Free from restraint(s) (Restraint for Interference with Rehabilitation Services Manager) Description: INTERVENTIONS: 1. ONCE/SHIFT or MINIMUM Q12H: Assess and document the continuing need for restraints 2. Order is valid for the duration of the episode of care 3. Discontinue at the earliest possible time once the reason for restraints no longer exists 4. Identify and implement measures to help patient regain control 5. Food, fluids, and toilet offered at a minimum of every 2 hours 6. RN modifies the patient's plan of care by entering a problem statement related to safety; individualizes the safety outcome Outcome: Progressing Note: Evaluation of progress towards goal: Pt requires restraints at this time to prevent pulling of lines and tubes. IV fluids and tube feed being provided. Will continue to re-evaluate. Problem: Moderate - High Risk Fall Score Description: Pepe Anna Score of =/> 25 or indicated by [facility] Assessment Goal: Patient should be free from fall Description: Interventions: 1. [place] to environment 2. Hourly rounds addressing the 4 P's (Pain, Positioning, Possessions, Potty) 3. Clear area of hazards (spills, clutter, electrical cords, unnecessary equipment) 4. Place equipment (bed & TV controls, call light, phone, urinal) within reach 5. Encourage patient to wear glasses and hearing aides as appropriate 6. Maintain bed in lowest position 7. Lock wheels on bed/wheelchair 8. Provide adequate lighting, including night light 9. Assess need for additional bedding, food/fluids, pain med's prior to sleep/routinely 10. Provide gripper slippers or personal non-skid footwear 11. Teach patient and patient retail sales representative to maintain environment for safety and engage in all aspects of fall prevention program 12. Remind patient to call for help before getting out of bed 13. Initiate bed/chair/exit alarms supportive devices as appropriate, (chair wedge, no-skid floor mat, raised edge mattress, hip protectors) 14. Locate patient bed assignment for optimal visualization 15. Evaluate and identify Safe Patient Handling Equipment needs 16. Provide supervision when out of bed or chair 17. Utilize gait belt as needed to assist with ambulation 18. Place adaptive equipment (cane, walker) within reach 19. Request patient retail sales representative bring adaptive equipment/mobility aids from home or obtain and provide as needed 20. Consult pharmacy regarding effects of med's affecting mobility, cognition, and alternatives 21. Obtain physician order for PT if risk factors associated with mobility are present 22. Obtain physician order for OT as appropriate 23. Utilize diversional activities 24. Educate patient and patient retail sales representative how to maintain a safe environment during visitationtimes (notify nurse prior to leaving bedside) 25. Consider appropriateness of medical or non-medical record librarians teacher 26. Set up voiding schedule as appropriate (every 2 hours) Outcome: Progressing Note: Evaluation of progress towards goal: Will continue to educated pt of process, plan, and medications. Bed is in the lowest position, wheels are locked, 3/4 side rails are up. Hourly rounding performed. documented in this encounter Plan of Treatment DateTypeDepartmentCare Team (Latest Contact Info)Kkzzaajfpfh48/14/2026 11:00 AM ESTOffice Visit [facility] [address] [facility] [address] [place] [phone] Rosana Black, MATERIAL REQUISITIONER-AQUATIC FACILITY MANAGER [address] [facility] [address] documented as of this encounter Goals GoalPatient Goal TypeAssociated ProblemsRecent ProgressPatient-Stated?Author Arianna Louise RN Note: Evaluation of progress towards goal: Patient plans to return to [facility] documented as of this encounter Procedures Procedure NamePriorityDate/TimeAssociated DiagnosisCommentsSARS COV 2 BY NAAT/NPVULNEURXemcqng01/11/2025 4:53 PM EST HEMOGLOBIN AND HEMATOCRIT, YEPPKFouahvp66/11/2025 4:37 PM EST HEMODIALYSIS VDVAIMSOQZrqydrg06/11/2025 3:23 PM EST BEDSIDE LWQFNOIKcbiqmp25/11/2025 2:32 PM EST FL SWALLOW MOTILITY FMHVABUAIrndpzp91/11/2025 10:41 AM EST CBC WITH AUTO OBDUPYXSYWYGNrcwhbn13/11/2025 5:47 AM EST CK FLLQFVfpuvuv19/11/2025 5:47 AM EST COMPREHENSIVE METABOLIC LQXISZezhwlc62/11/2025 5:47 AM EST HEMOGLOBIN AND HEMATOCRIT, OVWQIWypxnrs53/10/2025 3:15 PM EST HEMODIALYSIS AQUCOOCGQCxccsyp45/10/2025 12:34 PM EST CBC WITH AUTO ZVNXCUGJWIDUEpjxtxq98/10/2025 6:04 AM EST AODFBUDPJIjjlmca81/10/2025 6:04 AM EST COMPREHENSIVE METABOLIC OCJRHBqwtlyi61/10/2025 6:04 AM EST HEMOGLOBIN AND HEMATOCRIT, QPCPXTycbarr01/09/2025 4:[address] ABDOMEN AND PELVIS WO RLOCNbuneqw96/09/2025 3:00 PM EST HEMOGLOBIN AND HEMATOCRIT, ENDDVUyrtqrn13/09/2025 1:24 PM EST OCCULT BLOOD X 1, CXLGAGdxeifn45/09/2025 11:59 AM EST TRANSFUSE RED BLOOD LNHZNLtgjelc22/09/2025 10:11 AM ESTREPEATED ABORHRoutine 03/22/2025 7:52 AM ESTCROSSMATCH JLMBovfhuh22/09/2025 7:00 AM EST EXTRA TUBES LAVENDER QEYIntetyk22/09/2025 7:00 AM EST EXTRA DNUKZUaizuti80/09/2025 7:00 AM EST IRON AND TIBCAdd-On03/22/2025 7:00 AM EST TYPE AND GSTVNJCvkctqf91/09/2025 7:00 AM EST FOLATEAdd-On03/22/2025 7:00 AM EST FERRITINAdd-On03/22/2025 7:00 AM EST VITAMIN B44Tax-Yq86/09/2025 7:00 AM EST CBC WITH AUTO AGVTYIUSHSMXMfcgmmp89/09/2025 5:29 AM EST OTHGKSYEDYdhxgmg92/09/2025 5:29 AM EST COMPREHENSIVE METABOLIC PGTBTVokdbbb18/09/2025 5:29 AM EST TROP I, HIGH SENSITIVITY 1 YNTGVWIE74/08/2025 5:08 PM EST ECG 12-UIHOXbbkpqi61/08/2025 3:44 PM EST TROPONIN I, HIGH SENSITIVITY 0 XLHCKOUI15/08/2025 3:18 PM EST TROPONIN I, HIGH SENSITIVITY 0 UIFYCRWT45/08/2025 3:18 PM EST HEMODIALYSIS GNXRBXSCPVgpywld28/08/2025 2:30 PM EST REPEATED JCUWKIqzavla77/08/2025 6:42 AM EST CBC WITH AUTO CRAOINHRPURVQnysjgu10/08/2025 6:42 AM EST BGXJCUUJCFoyjfnw63/08/2025 6:42 AM EST CK TOTALAdd-On03/21/2025 6:42 AM EST COMPREHENSIVE METABOLIC WGWALVrlxdpe14/08/2025 6:42 AM EST FL SWALLOW MOTILITY MWLQBLBJMsuggqq01/06/2025 10:17 AM EST CBC WITH AUTO JXODZSEMUXQJOdpyeqs14/06/2025 6:49 AM EST BLOOD IOXNCQKRYIE65/06/2025 6:49 AM EST BLOOD XASUBEZQNLL09/06/2025 6:49 AM EST COMPREHENSIVE METABOLIC KJEJPKaszjsp02/06/2025 6:49 AM EST XR CHEST 1 OGWnbijcb12/06/2025 4:52 AM EST CSTMAETSFzbwgpi79/05/2025 2:24 PM EST HEMODIALYSIS CDPEAOJHGIfchcjp67/05/2025 11:02 AM EST BVDWNCLKZOPyniqrk88/05/2025 5:03 AM EST PROCALCITONINAdd-On03/18/2025 2:03 AM EST CBC WITH AUTO TUCTEFTRYBGHVdyhphj91/05/2025 2:03 AM EST COMPREHENSIVE METABOLIC ADUJWInhbyeq06/05/2025 2:03 AM EST IONIZED JWLJEXAMGDhkbmux34/04/2025 11:36 AM EST HEMOGLOBIN AND HEMATOCRIT, PMIEBKNAP39/04/2025 7:40 AM EST NDKBJBYKTAodgeth95/04/2025 6:27 AM EST CBC WITH AUTO DEAXQSUBPTJCLpaiiwa49/04/2025 2:23 AM EST BEDSIDE PDWCZOEBkbdyfy85/04/2025 2:23 AM EST MAGNESIUMAdd-On03/17/2025 2:23 AM EST COMPREHENSIVE METABOLIC BOOBVRmzzfnq14/04/2025 2:23 AM EST BEDSIDE XDJPLKSWxbripv91/03/2025 7:17 PM EST CK RUURQOWHU84/03/2025 6:01 PM EST HEMODIALYSIS LGAOKIUMHYpzrimg47/03/2025 5:32 PM EST CBC WITH AUTO YHGQRSNQGTUPSyxqlfg33/03/2025 11:32 AM EST COMPREHENSIVE METABOLIC UBIITNyterwd36/03/2025 11:32 AM EST BLOOD OTHOKHJDEZB82/03/2025 10:35 AM EST BLOOD UJKYYUXUFBX38/03/2025 10:35 AM EST MRSA PCR NASAL SODTZiaziec28/03/2025 7:48 AM EST S PNEUMONIAE AG FLfefrax18/03/2025 7:48 AM EST RESP PATHOGENS PANEL/EDDU-XQR-4Cdkwywv40/03/2025 7:48 AM EST LEGIONELLA ANTIGEN, WUREFOaerbyq20/03/2025 7:48 AM EST BEDSIDE RUIHOJUTtjrgkk54/03/2025 6:48 AM EST TAYLOR TOP ON CVBZMGG0303/16/2025 5:38 AM EST LAVENDER ULJDROM3903/16/2025 5:38 AM EST PST HLMEKCF7603/16/2025 5:38 AM EST BLUE VNNFDYI8303/16/2025 5:38 AM EST RAINBOW FGRDRMDS67/03/2025 5:38 AM EST B-TYPE NATRIURETIC PEPTIDEAdd-On03/16/2025 5:38 AM EST PM ED CRITICAL MUDAEfqrugu86/03/2025 5:20 AM EST documented in this encounter Results * SARS CoV 2 by NAAT/Molecular (03/24/2025 4:53 PM EST)ComponentValueRef Range Test MethodAnalysis TimePerformed AtPathologist SignatureSARS COV 2Not DetectedNot Lruvcsyh68/11/2025 6:11 PM [facility] Specimen (Source)Anatomical Location / LateralityCollection Method / Volume Collection TimeReceived TimeSwabNasopharyngeal structure / Aylokka6703/24/2025 4:53 PM EST12/02/2025 5:15 PM EST Narrative [facility] - 03/24/2025 6:11 PM EST The Xpert Xpress SARS-CoV-2 Plus test is a real-time RT-PCR test intended for the qualitative detection of nucleic acid from the SARS-CoV-2 from individuals suspected of COVID-19 by their healthcare provider. This test has not been validated in asymptomatic patients. The Xpert Xpress SARS-CoV-2 Plus test is intended for use by qualified and trained operators who are performing tests using either [employer] or [employer] systems and is limited to laboratories that meet the CLIA requirements to perform high and moderate complexity tests.Results are for the detection and identification of SARS-CoV-2 RNA, which is generally detectable in upper respiratory samples during the acute phase of infection. Positive results are indicative of active infection with SARS-CoV-2; clinical correlation with patient history and other diagnostic information is necessary to determine patient infection status. Positive results do not rule out bacterial infection or co-infection with other viruses. The agent detected may not be the definite cause of disease. Negative results do not preclude SARS-CoV-2 infection and should not be used as the sole basis for treatment or other patient management decisions. Negative results must be combined with clinical observations, patient history, and epidemiological information. An Invalid Result may occur with specimen-associated inhibition unable to be resolved with specimen repeat. Authorizing ProviderResult TypeResult StatusTaylor Trey Albert [facility] HOSPITALICROBIOLOGY - GENERAL ORDERABLESFinal ResultPerforming OrganizationAddressCity/State/ZIP Code Phone Number [facility] [address] [place] [address], * (ABNORMAL) Hemoglobin and hematocrit, blood (03/24/2025 4:37 PM EST)Component ValueRef RangeTest MethodAnalysis TimePerformed AtPathologist Signature Hemoglobin8.7(L)13 - 17 g/dL03/24/2025 5:02 PM [facility] KBNPUTRHTZXhdabdoyyd59.6(L)39 - 50 %03/24/2025 5:02 PM [facility] LABORATORYSpecimen (Source)Anatomical Location / LateralityCollection Method / VolumeCollection TimeReceived TimeBloodVenous blood / Unknown Venipuncture / Uzxrqii2303/24/2025 4:37 PM EST03/24/2025 4:48 PM EST Narrative Authorizing ProviderResult TypeResult France Albert [facility] BLOOD ORDERABLESFinal ResultPerforming OrganizationAddressCity/State/ZIP CodePhone Number [facility] [address] [place] [address], [place] [phone] * Hemodialysis inpatient (03/24/2025 3:23 PM EST) Narrative Summer Rosenbaum RN - 03/24/2025 3:23 PM EST Summer Rosenbaum RN 03/24/2025 5:04 PM Patient completed 2 hours dialysis treatment. One hour into dialysis treatment, the patient reported feeling unwell and experiencing chest pain.Vitals signs remained stable. BS checked and was 133. O2 applied via NC at 2L, patient BP 130/70. Patient placed in minimum. Patient continued to c/o chest pain. Rapid called and a bedside EKG performed. Per rapid response EKG was normal. The patient later reported that he was beginning to feel better. Vitals remained stable throughout. Dr. Sharma notified and ordered 500 ml saline bolus x1 and to shorten patient treatment to 2 hours. See flowsheet for additional information. CVC functioned well at BFR 350. Post BP- 146/86, 80. Post Weight-79.9kg Bed scale shows removal of 0.2 kg Report given to primary RN. Authorizing ProviderResult TypeResult StatusMaritza Sharma MDDIALYSIS ORDERABLES Edited Result - Final * (ABNORMAL) Bedside Glucose *Place/Obtain serum glucose if >500 per glucometer. (03/24/2025 2:32 PM EST)ComponentValueRef RangeTest MethodAnalysis Time Performed AtPathologist SignatureBedside Glucose (POC)133(H)65 - 99 mg/dL 03/24/2025 2:37 PM [facility] LABORATORYSpecimen (Source)Anatomical Location / LateralityCollection Method / VolumeCollection TimeReceived Time arterial/lrthxgvco63/11/2025 2:32 PM EST03/24/2025 2:37 PM EST Narrative Authorizing ProviderResult TypeResult France Albert MDPOINT OF CARE TEST ORDERABLESFinal ResultPerforming OrganizationAddressCity/State/ZIP Code Phone Number [facility] [address] [place] [address], [place] * Fluoroscopy swallow motility function (03/24/2025 10:41 AM EST)Anatomical RegionLateralityModalityChest, Abdomen, BodyRadio FluoroscopySpecimen (Source) Anatomical Location / LateralityCollection Method / VolumeCollection Time Received Time03/24/2025 2:14 PM EST Narrative 03/24/2025 2:15 PM EST STUDY: Video fluoroscopic swallow study CLINICAL HISTORY: Oral pharyngeal dysphagia, difficulty swallowing COMPARISON: None. FINDINGS: Video fluoroscopic swallow study was performed in conjunction with members of speech pathology. Barium contrast materials of multiple consistencies were administered. Fluoroscopic reference air kermawas mGy. Multiple video fluoroscopic images. Zero fluoroscopic spot films. The reference air kerma was 5.9 mGy. Laryngeal penetration and aspiration with thin and mildly thick liquid. This was seen both with cupand straw ingestion. Ingestion of moderately thick barium unremarkable using a cup. Throughout the exam is significant oral pharyngeal delay. Delayed cough reflex. Applesauce and cracker mixed with barium unremarkable Correlate with dedicated speech pathology report for additional details and recommendations. IMPRESSION: 1. Abnormal video speech swallow Finalized by Gordon Wall MD on 03/24/2025 2:15 PM Procedure Note Gordon Wall MD - 03/24/2025 STUDY: Video fluoroscopic swallow study CLINICAL HISTORY: Oral pharyngeal dysphagia, difficulty swallowing COMPARISON: None. FINDINGS: Video fluoroscopic swallow study was performed in conjunction with membersof speech pathology. Barium contrast materials of multiple consistencieswere administered. Fluoroscopic reference air kerma was mGy. Multiplevideo fluoroscopic images. Zero fluoroscopic spot films. The reference air kerma was 5.9 mGy. Laryngeal penetration and aspiration with thin and mildly thick liquid.This was seen both with cup and straw ingestion. Ingestion of moderatelythick barium unremarkable using a cup. Throughout the exam is significantoral pharyngeal delay. Delayed cough reflex. Applesauce and cracker mixed with barium unremarkable Correlate with dedicated speech pathology report for additional detailsand recommendations. IMPRESSION: 1. Abnormal video speech swallow Finalized by Gordon Wall MD on 03/24/2025 2:15 PM Authorizing ProviderResult TypeResult StatusTaylor Trey Albert MDIMG FLUOROSCOPY ORDERABLESFinal Result * (ABNORMAL) CBC auto differential (03/24/2025 5:47 AM EST)ComponentValueRef RangeTest MethodAnalysis TimePerformed AtPathologist SignatureWBC4.54 - 11 10^9L105/25/2024 6:46 AM [facility] LABORATORYRBC Count2.33 (L)4.1 - 5.7 10^12/L105/25/2024 6:46 AM [facility] Hemoglobin7.4(L)13 - 17 g/dL03/24/2025 6:46 AM [facility] TGJGDWJYPHZmacmjcwyu32.9(L)39 - 50 %03/24/2025 6:46 AM [facility] HKMXQCPFFOJJF1921 - 100 fL03/24/2025 6:46 AM [facility] VTPGJHVEYUQPN61.927 - 34 pg03/24/2025 6:46 AM [facility] KCGRXJCTOEUGCS82.832 - 36 g/dL03/24/2025 6:46 AM [facility] WBIEMZRPZQLUM92.5(H)11.5 - 15 %03/24/2025 6:46 AM [facility] LABORATORYPlatelet Dzqyw642843 - 450 10^L105/25/2024 6:46 AM [facility]ORATORYMPV6.9(L)7 - 12 fL03/24/2025 6:46 AM [facility]OR[facility]ORYNeutrophils %64.1%03/24/2025 6:46 AM [facility]OR[facility]ORYLymphocytes %18.4%03/24/2025 6:46 AM [facility]ORYMonocytes %8.0%03/24/2025 6:46 AM [facility]ORYEosinophils %8.3%03/24/2025 6:46 AM [facility]OR[facility]ORYBasophils %1.2%03/24/2025 6:46 AM [facility] LABORATORYNeutrophils Absolute (A)2.91.5 - 6.6 10^9/L 03/24/2025 6:46 AM [facility] LABORATORYLymphocytes Absolute 0.8(L)1.0 - 3.5 10^9/L105/25/2024 6:46 AM [facility]ORYMonocytes Absolute0.40.0 - 0.9 10^9/L105/25/2024 6:46 AM [facility]ORYEosinophils Absolute0.40.0 - 0.4 10^9/L105/25/2024 6:46 AM [facility]ORATORYBasophils Absolute0.10.0 - 0.2 10^9/L105/25/2024 6:46 AM [facility] LABORATORYDifferential TypeAUTOMATED BKSFGTPFYMTX71/11/2025 6:46 AM [facility] LABORATORYSpecimen (Source)Anatomical Location / LateralityCollection Method / VolumeCollection TimeReceived TimeBloodVenous blood / UnknownVenipuncture / Qypqohk2203/24/2025 5:47 AM EST03/24/2025 6:32 AM EST Narrative Authorizing ProviderResult TypeResult StatusRujanie ARCHIBALD BLOOD ORDERABLES Final ResultPerforming OrganizationAddressCity/State/ZIP CodePhone Number [facility] [address] [place] [address], * (ABNORMAL) Comprehensive metabolic panel (03/24/2025 5:47 AM EST)Component ValueRef RangeTest MethodAnalysis TimePerformed AtPathologist SignatureSODIUM 147(H)134 - 146 mmol/L105/25/2024 7:06 AM [facility]ORATORYPOTASSIUM4.63.5 - 5.0 mmol/L105/25/2024 7:06 AM [facility] JIGVCADIDZGIQXYPZN462(H)98 - 109 mmol/L105/25/2024 7:06 AM [facility] LABORATORYCARBON NMHKPHU1208 - 32 mmol/L105/25/2024 7:06 AM [facility] LABORATORYANION GAP75 - 15 mmol/L105/25/2024 7:06 AM [facility] LABORATORYBLOOD UREA JZQHAURC79(H)5 - 27 mg/dL 03/24/2025 7:06 AM [facility]ORATORYCREATININE2.22(H)0.60 - 1.30 mg/dL03/24/2025 7:06 AM [facility] LABORATORYComment: METHOD TRACEABLE TO IDAL VRJWKPIQXDVJYAI518(H)65 - 99 mg/dL03/24/2025 7:06 AM [facility]ORATORYCALCIUM9.38.5 - 10.5 mg/dL03/24/2025 7:06 AM [facility] LABORATORYTOTAL PROTEIN6.36.0 - 8.0 g/dL 03/24/2025 7:06 AM [facility] LABORATORYALBUMIN3.43.2 - 5.3 g/dL03/24/2025 7:06 AM [facility] LABORATORYALKALINE LDSBRNMPQPQ116(H)39 - 130 U/L105/25/2024 7:06 AM [facility] OKSFOHTRWTUWS18<=41 U/L105/25/2024 7:06 AM [facility] LABORATORYALT8<=40 U/L105/25/2024 7:06 AM [facility] LABORATORYBILIRUBIN,TOTAL0.60.3 - 1.2 mg/dL03/24/2025 7:06 AM [facility]ORYEGFR Non-Race Zemnhiekr82(L)>=60 ml/min/1.73sq.m 03/24/2025 7:06 AM [facility] LABORATORYComment: Reported eGFR is based on the CKD-EPI 2020 equation that does not use a race coefficient. Specimen (Source)Anatomical Location / LateralityCollection Method / Volume Collection TimeReceived TimeBloodVenous blood / UnknownVenipuncture / Unknown 03/24/2025 5:47 AM EST03/24/2025 6:32 AM EST Narrative Authorizing ProviderResult TypeResult StatusRujanie ARCHIBALD BLOOD ORDERABLES Final ResultPerforming OrganizationAddressCity/State/ZIP CodePhone Number [facility] [address] [place] [address], [place] [phone] * CK Total (03/24/2025 5:47 AM EST)ComponentValueRef RangeTest MethodAnalysis TimePerformed AtPathologist GllcqsemsAPH5544 - 195 U/L105/25/2024 7:06 AM EST [facility] LABORATORYSpecimen (Source)Anatomical Location / LateralityCollection Method / VolumeCollection TimeReceived TimeBloodVenous blood / UnknownVenipuncture / Jpvbhoi6703/24/2025 5:47 AM EST03/24/2025 6:32 AM EST Narrative Authorizing ProviderResult TypeResult StatusLamich [facility]ODATCH[facility] BLOOD ORDERABLESFinal ResultPerforming OrganizationAddressCity/State/ZIP CodePhone Number [facility] [address] [place] [address], * (ABNORMAL) Hemoglobin and hematocrit, blood (03/23/2025 3:15 PM EST)Component ValueRef RangeTest MethodAnalysis TimePerformed AtPathologist Signature Hemoglobin7.4(L)13 - 17 g/dL03/23/2025 3:38 PM [facility] IFYLWGGGPNYedenekvov31.9(L)39 - 50 %03/23/2025 3:38 PM [facility] LABORATORYSpecimen (Source)Anatomical Location / LateralityCollection Method / VolumeCollection TimeReceived TimeBloodVenous blood / Unknown Venipuncture / Sjnoshl0303/23/2025 3:15 PM EST03/23/2025 3:24 PM EST Narrative Authorizing ProviderResult TypeResult StatusTaylmaritza Albert MDLAB BLOOD ORDERABLESFinal ResultPerforming OrganizationAddressCity/State/ZIP CodePhone Number [facility] [address] [place] [address], [place] [phone] * Hemodialysis inpatient (03/23/2025 12:34 PM EST) Narrative Summer Rosenbaum RN - 03/23/2025 12:34 PM EST Summer Rosenbaum RN 03/23/2025 12:38 PM Dialysis held today per nephrology Dr. Sharma Authorizing ProviderResult TypeResult StatusDanial Joaquin MDDIALYSIS ORDERABLES Final Result * (ABNORMAL) CBC auto differential (03/23/2025 6:04 AM EST)ComponentValueRef RangeTest MethodAnalysis TimePerformed AtPathologist SignatureWBC4.94 - 11 10^L105/24/2024 6:42 AM [facility] LABORATORYRBC Count2.31 (L)4.1 - 5.7 10^12L105/24/2024 6:42 AM [facility] Hemoglobin7.4(L)13 - 17 g/dL03/23/2025 6:42 AM [facility] MAJDWDUHWTPbuxowdtgu71.7(L)39 - 50 %03/23/2025 6:42 AM [facility] GUTRJOCVVFERF1819 - 100 fL03/23/2025 6:42 AM [facility] YZEDYODCDJRMW32.127 - 34 pg03/23/2025 6:42 AM [facility] ORIXQQXZVATRYJ99.132 - 36 g/dL03/23/2025 6:42 AM [facility] MLXNKUGZFPDQP88.6(H)11.5 - 15 %03/23/2025 6:42 AM [facility] LABORATORYPlatelet Daqly038868 - 450 10^03/23/2025 6:42 AM [facility] LABORATORYMPV7.37 - 12 fL03/23/2025 6:42 AM [facility] LABORATORYNeutrophils %66.3%03/23/2025 6:42 AM [facility] LABORATORYLymphocytes %15.9%03/23/2025 6:42 AM [facility] LABORATORYMonocytes %9.1%03/23/2025 6:42 AM [facility] LABORATORYEosinophils %7.5%03/23/2025 6:42 AM [facility] LABORATORYBasophils %1.2%03/23/2025 6:42 AM [facility] LABORATORYNeutrophils Absolute (A)3.31.5 - 6.6 10^9/L 03/23/2025 6:42 AM [facility] LABORATORYLymphocytes Absolute 0.8(L)1.0 - 3.5 10^9/L105/24/2024 6:42 AM [facility] LABORATORYMonocytes Absolute0.40.0 - 0.9 10^9/L105/24/2024 6:42 AM [facility] LABORATORYEosinophils Absolute0.40.0 - 0.4 10^9/L105/24/2024 6:42 AM [facility] LABORATORYBasophils Absolute0.10.0 - 0.2 10^9/L105/24/2024 6:42 AM [facility] LABORATORYDifferential TypeAUTOMATED SIKBOECQYXLA49/10/2025 6:42 AM [facility] LABORATORYSpecimen (Source)Anatomical Location / LateralityCollection Method / VolumeCollection TimeReceived TimeBloodVenous blood / UnknownVenipuncture / Duvqhyz4803/23/2025 6:04 AM EST03/23/2025 6:28 AM EST Narrative Authorizing ProviderResult TypeResult StatusRupesjulian ARCHIBALD BLOOD ORDERABLES Final ResultPerforming OrganizationAddressCity/State/ZIP CodePhone Number [facility] [address] [place] [address], * (ABNORMAL) Comprehensive metabolic panel (03/23/2025 6:04 AM EST)Component ValueRef RangeTest MethodAnalysis TimePerformed AtPathologist SignatureSODIUM 532191 - 146 mmol/L105/24/2024 7:01 AM [facility] POTASSIUM4.63.5 - 5.0 mmol/L105/24/2024 7:01 AM [facility] CSVQBDZKNGUUXSQOJJ268(H)98 - 109 mmol/L105/24/2024 7:01 AM [facility] LABORATORYCARBON KQDJDFJ1682 - 32 mmol/L105/24/2024 7:01 AM [facility] LABORATORYANION GAP95 - 15 mmol/L105/24/2024 7:01 AM [facility] LABORATORYBLOOD UREA TTVAAKVP09(H)5 - 27 mg/dL 03/23/2025 7:01 AM [facility] LABORATORYCREATININE2.33(H)0.60 - 1.30 mg/dL03/23/2025 7:01 AM [facility] LABORATORYComment: METHOD TRACEABLE TO IDAL NIQACYBUDFHOWEW718(H)65 - 99 mg/dL03/23/2025 7:01 AM [facility] LABORATORYCALCIUM9.18.5 - 10.5 mg/dL03/23/2025 7:01 AM [facility] LABORATORYTOTAL PROTEIN6.16.0 - 8.0 g/dL 03/23/2025 7:01 AM [facility] LABORATORYALBUMIN3.23.2 - 5.3 g/dL03/23/2025 7:01 AM [facility] LABORATORYALKALINE ISODVFURYAN402(H)39 - 130 U/L105/24/2024 7:01 AM [facility] LABORATORYAST8<=41 U/L105/24/2024 7:01 AM [facility] LABORATORYALT5<=40 U/L105/24/2024 7:01 AM [facility] LABORATORYBILIRUBIN,TOTAL0.60.3 - 1.2 mg/dL03/23/2025 7:01 AM [facility] LABORATORYEGFR Non-Race Hyrsdhahj29(L)>=60 ml/min/1.73sq.m 03/23/2025 7:01 AM [facility] LABORATORYComment: Reported eGFR is based on the CKD-EPI 2020 equation that does not use a race coefficient. Specimen (Source)Anatomical Location / LateralityCollection Method / Volume Collection TimeReceived TimeBloodVenous blood / UnknownVenipuncture / Unknown 03/23/2025 6:04 AM EST03/23/2025 6:29 AM EST Narrative Authorizing ProviderResult TypeResult StatusRujanie ARCHIBALD BLOOD ORDERABLES Final ResultPerforming OrganizationAddressCity/State/ZIP CodePhone Number [facility] [address] [place] [address], * Magnesium (03/23/2025 6:04 AM EST)ComponentValueRef RangeTest MethodAnalysis TimePerformed AtPathologist SignatureMAGNESIUM2.01.8 - 2.6 mg/dL03/23/2025 7:01 AM [facility] LABORATORYSpecimen (Source)Anatomical Location / LateralityCollection Method / VolumeCollection TimeReceived Time BloodVenous blood / UnknownVenipuncture / Cpkappr8103/23/2025 6:04 AM EST 03/23/2025 6:29 AM EST Narrative Authorizing ProviderResult TypeResult StatusRicarda ARCHIBALD BLOOD ORDERABLES Final ResultPerforming OrganizationAddressCity/State/ZIP CodePhone Number [facility] [address] [place] [address], * (ABNORMAL) Hemoglobin and hematocrit, blood (03/22/2025 4:52 PM EST)Component ValueRef RangeTest MethodAnalysis TimePerformed AtPathologist Signature Hemoglobin7.6(L)13 - 17 g/dL03/22/2025 5:15 PM [facility] WGLEOUFYSDMpnqtwbklz92.5(L)39 - 50 %03/22/2025 5:15 PM [facility] LABORATORYSpecimen (Source)Anatomical Location / LateralityCollection Method / VolumeCollection TimeReceived TimeBloodVenous blood / Unknown Venipuncture / Duuepsf6803/22/2025 4:52 PM EST03/22/2025 5:01 PM EST Narrative Authorizing ProviderResult TypeResult StatusRenardylmaritza ARCHIBALD BLOOD ORDERABLESFinal ResultPerforming OrganizationAddressCity/State/ZIP CodePhone Number [facility] [address] [place] [address], * CT abdomen and pelvis without contrast (03/22/2025 3:00 PM EST)Anatomical RegionLateralityModalityBody, Abdomen, Body CoveraN/AComputed Tomography Specimen (Source)Anatomical Location / LateralityCollection Method / Volume Collection TimeReceived Time03/22/2025 3:03 PM EST Narrative 03/22/2025 3:06 PM EST Clinical History: Fever. CT abdomen and pelvis without contrast: 03/22/2025 Procedure: Axial images were obtained through the abdomen and pelvis without intravenous contrast. Coronal and sagittal reconstructions were performed. ??All CT scans at this facility use dose modulation, iterative reconstruction, and/or weight based dosing when appropriate to reduce radiation dose to as low as reasonably achievable. Findings: There is confluent opacity in the right basilar region with a right pleural effusion. Minimal strandy density is present in the left lung base centrally. Noncontrast evaluation of abdominal and retroperitoneal organs is not optimal. No focal hepatic or splenic abnormality is present. There is no pancreatic, adrenal, or biliary abnormality grossly. Thepatient is postcholecystectomy. . Punctate nonobstructing right superior pole renal calculus is present. There is no hydronephrosis. Renal contours are within normal limits. The ureters and urinary bladder are within normal limits. A moderate of stool is present within the left colon extending to the rectosigmoid region. Enlargedleft inguinal hernia contains a large portion of the colon. There is no free intracranial gas or fluid. No mass or mass effect is evident. Moderate calcifications are present within the aorta and iliac vessels. There are degenerative changes through the lower lumbar spine and within the hips. Geographic sclerosis within the superior femoral heads are compatible with avascular necrosis. IMPRESSION: Large left inguinal hernia extending into the scrotum containing a large and small bowel without definite obstruction or findings of acute ischemia. Close follow-up recommended. Right basilar infiltrate suggestive of pneumonia but not completely imaged on this study. An underlying lesion is not excluded and follow-up is recommended. Moderate right pleural effusion. Other chronic appearing findings as described above. Finalized by Lester Morgan MD on 03/22/2025 3:06 PM Procedure Note Lester Morgan MD - 03/22/2025 Clinical History: Fever. CT abdomen and pelvis without contrast: 03/22/2025 Procedure: Axial images were obtained through the abdomen and pelviswithout intravenous contrast. Coronal and sagittal reconstructions wereperformed. All CT scans at this facility use dose modulation, iterativereconstruction, and/or weight based dosing when appropriate to reduceradiation dose to as low as reasonably achievable. Findings: There is confluent opacity in the right basilar region with a rightpleural effusion. Minimal strandy density is present in the left lung basecentrally. Noncontrast evaluation of abdominal and retroperitoneal organs is notoptimal. No focal hepatic or splenic abnormality is present. There is nopancreatic, adrenal, or biliary abnormality grossly. The patient ispostcholecystectomy. . Punctate nonobstructing right superior pole renal calculus is present.There is no hydronephrosis. Renal contours are within normal limits. Theureters and urinary bladder are within normal limits. A moderate of stool is present within the left colon extending to the rectosigmoid region. Enlarged left inguinal hernia contains a largeportion of the colon. There is no free intracranial gas or fluid. No massor mass effect is evident. Moderate calcifications are present within the aorta and iliac vessels. There are degenerative changes through the lower lumbar spine and withinthe hips. Geographic sclerosis within the superior femoral heads arecompatible with avascular necrosis. IMPRESSION: Large left inguinal hernia extending into the scrotum containing a largeand small bowel without definite obstruction or findings of acuteischemia. Close follow-up recommended. Right basilar infiltrate suggestive of pneumonia but not completely imagedon this study. An underlying lesion is not excluded and follow-up isrecommended. Moderate right pleural effusion. Other chronic appearing findings as described above. Finalized by Lester Morgan MD on 03/22/2025 3:06 PM Authorizing ProviderResult TypeResult StatusRazi U Joselo MDCHOCTAW NATION [facility] [place] [facility] ORDERABLESFinal Result * (ABNORMAL) Hemoglobin and hematocrit, blood (03/22/2025 1:24 PM EST)Component ValueRef RangeTest MethodAnalysis TimePerformed AtPathologist Signature Hemoglobin8.0(L)13 - 17 g/dL03/22/2025 2:32 PM [facility] BFUCCTASTFVvigpqkssd56.2(L)39 - 50 %03/22/2025 2:32 PM [facility] LABORATORYSpecimen (Source)Anatomical Location / LateralityCollection Method / VolumeCollection TimeReceived TimeBloodVenous blood / Unknown Venipuncture / Xkbbeda0203/22/2025 1:24 PM EST03/22/2025 2:13 PM EST Narrative Authorizing ProviderResult TypeResult StatusTaylor Trey Albert MDLAB BLOOD ORDERABLESFinal ResultPerforming OrganizationAddressCity/State/ZIP CodePhone Number [facility] [address] [place] [address], [place] [phone] * Transfuse RBC:1 Unit (03/22/2025 12:07 PM EST) Narrative Authorizing ProviderResult TypeResult StatusDustin Albaro MATERIAL REQUISITIONER-CNPBLOOD TRANSFUSION ORDERABLESFinal Result * Transfuse RBC:1 Unit (03/22/2025 12:07 PM EST) Narrative Authorizing ProviderResult TypeResult StatusDustin Albaro MATERIAL REQUISITIONER-CNPBLOOD TRANSFUSION ORDERABLESFinal Result * (ABNORMAL) Occult blood x 1, stool (03/22/2025 11:59 AM EST)ComponentValueRef RangeTest MethodAnalysis TimePerformed AtPathologist SignatureFECAL OCCULT BLOODPositive(A)Dxpgidxc03/09/2025 1:13 PM [facility] LABORATORYSpecimen (Source)Anatomical Location / LateralityCollection Method / VolumeCollection TimeReceived TimeStoolFeces / Byafirh6903/22/2025 11:59 AM EST 03/22/2025 12:10 PM EST Narrative Authorizing ProviderResult TypeResult StatusDustin Albaro MATERIAL REQUISITIONER-CNPBODY FLUIDS AND STOOLS ORDERABLESFinal ResultPerforming OrganizationAddressCity/State/ZIP CodePhone Number [facility] [address] [place] [address], [place] [phone] * ABO Rh Repeat (03/22/2025 7:52 AM EST)Specimen (Source)Anatomical Location / LateralityCollection Method / VolumeCollection TimeReceived Time03/22/2025 7:52 AM EST Narrative Authorizing ProviderResult TypeResult StatusJessica Lansing Gombash DOBLOOD BANK TEST ORDERABLESFinal ResultPerforming OrganizationAddressCity/State/ZIP Code Phone Number [facility] * Crossmatch RBC:Number of Units: 1 (03/22/2025 7:00 AM EST)ComponentValueRef RangeTest MethodAnalysis TimePerformed AtPathologist SignatureBlood component [id number] BANK - [place]LL[place]YUnit [id number] BANK - [place] Unit ABOOBLOOD BANK - [place]LL[place]YUnit RHPOSBLOOD BANK - WELL[place]YCrossmatch CompatibleBLOOD BANK - [place]LL[place]YStatus of unitTRANSFUSEDBLOOD BANK - [place] Expiration [id number] BANK - WELLSKYBB Type Piyxnpl6258JKOZH BANK - WELLSKYSpecimen (Source)Anatomical Location / LateralityCollection Method / VolumeCollection TimeReceived TimeBloodVenous blood / Oijhvet1003/22/2025 7:00 AM EST03/22/2025 7:24 AM EST Narrative Authorizing ProviderResult TypeResult StatusDustin Albaro MATERIAL REQUISITIONER-CNPBLOOD BANK PRODUCT ORDERABLESEdited Result - FinalPerforming OrganizationAddress City/State/ZIP CodePhone Number [facility] - [place] * Folate (03/22/2025 7:00 AM EST)ComponentValueRef RangeTest MethodAnalysis Time Performed AtPathologist SignatureFOLIC ACID17.6>5.8 ng/mL03/22/2025 8:34 AM [facility] LABORATORYSpecimen (Source)Anatomical Location / LateralityCollection Method / VolumeCollection TimeReceived TimeBloodVenous blood / UnknownVenipuncture / Hqxgvvt3403/22/2025 7:00 AM EST03/22/2025 7:13 AM EST Narrative Authorizing ProviderResult TypeResult StatusTaylor Trey Albert MDATCH[facility] BLOOD ORDERABLESFinal ResultPerforming OrganizationAddressCity/State/ZIP CodePhone Number [facility] [address] [place] [address], * Vitamin B12 (03/22/2025 7:00 AM EST)ComponentValueRef RangeTest MethodAnalysis TimePerformed AtPathologist SignatureVITAMIN [id number] - 914 pg/mL03/22/2025 8:35 AM [facility] LABORATORYSpecimen (Source)Anatomical Location / LateralityCollection Method / VolumeCollection TimeReceived Time BloodVenous blood / UnknownVenipuncture / Ljkpqxd36/12/2024 7:00 AM EST 03/22/2025 7:13 AM EST Narrative Authorizing ProviderResult TypeResult StatusTaylor Trey ARCHIBALD BLOOD ORDERABLESFinal ResultPerforming OrganizationAddressty/State/ZIP CodePhone Number [facility] [address] [place] [address], [place] [phone] * (ABNORMAL) Ferritin (03/22/2025 7:00 AM EST)ComponentValueRef RangeTest Method Analysis TimePerformed AtPathologist PubeekxxdATRUXLID351(H)24 - 336 ng/mL 03/22/2025 8:30 AM [facility] LABORATORYSpecimen (Source) Anatomical Location / LateralityCollection Method / VolumeCollection Time Received TimeBloodVenous blood / UnknownVenipuncture / Cpcxudt3003/22/2025 7:00 AM EST03/22/2025 7:13 AM EST Narrative Authorizing ProviderResult TypeResult StatusTaylor Trey ARCHIBALD BLOOD ORDERABLESFinal ResultPerforming OrganizationAddressCity/State/ZIP CodePhone Number [facility] [address] [place] [address], [place] [phone] * Lavender Top (03/22/2025 7:00 AM EST)ComponentValueRef RangeTest Method Analysis TimePerformed AtPathologist SignatureExtra TubeAuto Resulted 03/22/2025 8:01 AM [facility] LABORATORYSpecimen (Source) Anatomical Location / LateralityCollection Method / VolumeCollection Time Received TimeBloodVenous blood / Zptbygt7203/22/2025 7:00 AM EST03/22/2025 7:13 AM EST Narrative Authorizing ProviderResult TypeResult StatusTaylor Trey ARCHIBALD BLOOD ORDERABLESFinal ResultPerforming OrganizationAddressCity/State/ZIP CodePhone Number [facility] [address] [place] [address], [place] [phone] * (ABNORMAL) Iron and TIBC (03/22/2025 7:00 AM EST)ComponentValueRef RangeTest MethodAnalysis TimePerformed AtPathologist OtmltnhrxKYXG58(L)50 - 212 ug/dL 03/22/2025 7:52 AM [facility] LABORATORYIRON LLTQTKI028(L)250 - 425 ug/dL03/22/2025 7:52 AM [facility] LABORATORYIRON HXTULSJIGP1778 - 50 % RZIDGBMOZF97/09/2025 7:52 AM [facility] LABORATORYSpecimen (Source)Anatomical Location / LateralityCollection Method / VolumeCollection TimeReceived TimeBloodVenous blood / UnknownVenipuncture / Rhjhdiu3303/22/2025 7:00 AM EST03/22/2025 7:13 AM EST Narrative Authorizing ProviderResult TypeResult StatusDustin Albaro MATERIAL REQUISITIONER-CNPLAB BLOOD ORDERABLESFinal ResultPerforming OrganizationAddressCity/State/ZIP CodePhone Number [facility] [address] [place] [address], [place] [phone] * Type and screen(includes indirect bryce) (03/22/2025 7:00 AM EST)Component ValueRef RangeTest MethodAnalysis TimePerformed AtPathologist SignatureABOO 03/22/2025 7:59 AM ESTTTH BB - QSQCQDGRDCzuigdtf66/09/2025 7:59 AM ESTTTH BB - WELLSKYAntibody BqxxgfQylqvcmx00/09/2025 7:59 AM ESTTT BB - WELLSKYSpecimen (Source)Anatomical Location / LateralityCollection Method / VolumeCollection TimeReceived TimeBloodVenous blood / UnknownVenipuncture / Ivcrbqm6803/22/2025 7:00 AM EST03/22/2025 7:02 AM EST Narrative Authorizing ProviderResult TypeResult StatusDustin Albaro MATERIAL REQUISITIONER-CNPBLOOD BANK TEST ORDERABLESEdited Result - FinalPerforming OrganizationAddressCity/State/ZIP CodePhone Number [facility] BB - [place] [address] [place] [address], [place] * (ABNORMAL) CBC auto differential (03/22/2025 5:29 AM EST)ComponentValueRef RangeTest MethodAnalysis TimePerformed AtPathologist SignatureWBC4.34 - 11 10^9/L105/23/2024 6:07 AM [facility] LABORATORYRBC Count2.15 (L)4.1 - 5.7 10^12/L105/23/2024 6:07 AM [facility] Hemoglobin6.8(LL)13 - 17 g/dL03/22/2025 6:07 AM [facility] POGBGXMYSJApmiufiqrb95.1(L)39 - 50 %03/22/2025 6:07 AM [facility] VWOSHCBCXIVEQ4206 - 100 fL03/22/2025 6:07 AM [facility] WFIOXHXGEABFF80.527 - 34 pg03/22/2025 6:07 AM [facility] KTQZNULLFZTXWO16.732 - 36 g/dL03/22/2025 6:07 AM [facility] FCGIZDLPLJJJJ99.8(H)11.5 - 15 %03/22/2025 6:07 AM [facility] LABORATORYPlatelet Hbdzz434330 - 450 10^L105/23/2024 6:07 AM [facility] LABORATORYMPV7.37 - 12 fL03/22/2025 6:07 AM [facility] LABORATORYNeutrophils %61.5%03/22/2025 6:07 AM [facility] LABORATORYLymphocytes %19.0%03/22/2025 6:07 AM [facility] LABORATORYMonocytes %10.7%03/22/2025 6:07 AM [facility] LABORATORYEosinophils %7.7%03/22/2025 6:07 AM [facility] LABORATORYBasophils %1.1%03/22/2025 6:07 AM [facility] LABORATORYNeutrophils Absolute (A)2.71.5 - 6.6 10^9/L 03/22/2025 6:07 AM [facility] LABORATORYLymphocytes Absolute 0.8(L)1.0 - 3.5 10^9/L105/23/2024 6:07 AM [facility] LABORATORYMonocytes Absolute0.50.0 - 0.9 10^9/L105/23/2024 6:07 AM [facility] LABORATORYEosinophils Absolute0.30.0 - 0.4 10^9/L105/23/2024 6:07 AM [facility] LABORATORYBasophils Absolute0.00.0 - 0.2 10^9/L105/23/2024 6:07 AM [facility] LABORATORYDifferential TypeAUTOMATED EODLYEXNZAYT15/09/2025 6:07 AM [facility] LABORATORYSpecimen (Source)Anatomical Location / LateralityCollection Method / VolumeCollection TimeReceived TimeBloodVenous blood / UnknownVenipuncture / Frgieza0803/22/2025 5:29 AM EST03/22/2025 5:50 AM EST Narrative Authorizing ProviderResult TypeResult StatusRujanie ARCHIBALD BLOOD ORDERABLES Final ResultPerforming OrganizationAddressCity/State/ZIP CodePhone Number [facility] [address] [place] [id number], * (ABNORMAL) Comprehensive metabolic panel (03/22/2025 5:29 AM EST)Component ValueRef RangeTest MethodAnalysis TimePerformed AtPathologist SignatureSODIUM 598329 - 146 mmol/L105/23/2024 6:24 AM [facility] POTASSIUM4.13.5 - 5.0 mmol/L105/23/2024 6:24 AM [facility] SVLNIFYNVTWPOOFWXN031(H)98 - 109 mmol/L105/23/2024 6:24 AM [facility] LABORATORYCARBON MYFLNGR3372 - 32 mmol/L105/23/2024 6:24 AM [facility] LABORATORYANION GAP85 - 15 mmol/L105/23/2024 6:24 AM EST [facility] LABORATORYBLOOD UREA VYWDYVEA62(H)5 - 27 mg/dL 03/22/2025 6:24 AM [facility] LABORATORYCREATININE2.03(H)0.60 - 1.30 mg/dL03/22/2025 6:24 AM [facility] LABORATORYComment: METHOD TRACEABLE TO IDMS ABWWFNSYUDJDOXK650(H)65 - 99 mg/dL03/22/2025 6:24 AM [facility] LABORATORYCALCIUM8.88.5 - 10.5 mg/dL03/22/2025 6:24 AM [facility] LABORATORYTOTAL PROTEIN5.9(L)6.0 - 8.0 g/dL03/22/2025 6:24 AM [facility] LABORATORYALBUMIN3.1(L)3.2 - 5.3 g/dL03/22/2025 6:24 AM [facility] LABORATORYALKALINE LOELXNDZWJZ866(H)39 - 130 U/L105/23/2024 6:24 AM [facility] JSAJUQFZCDIKF74<=41 U/L105/23/2024 6:24 AM [facility] LABORATORYALT7<=40 U/L105/23/2024 6:24 AM [facility] LABORATORYBILIRUBIN,TOTAL0.70.3 - 1.2 mg/dL03/22/2025 6:24 AM [facility] LABORATORYEGFR Non-Race Zennmlwek32(L)>=60 ml/min/1.73sq.m 03/22/2025 6:24 AM [facility] LABORATORYComment: Reported eGFR is based on the CKD-EPI 2020 equation that does not use a race coefficient. Specimen (Source)Anatomical Location / LateralityCollection Method / Volume Collection TimeReceived TimeBloodVenous blood / UnknownVenipuncture / Unknown 03/22/2025 5:29 AM EST03/22/2025 5:50 AM EST Narrative Authorizing ProviderResult TypeResult StatusRujanie ARCHIBALD BLOOD ORDERABLES Final ResultPerforming OrganizationAddressCity/State/ZIP CodePhone Number [facility] [address] [place] [address], * Magnesium (03/22/2025 5:29 AM EST)ComponentValueRef RangeTest MethodAnalysis TimePerformed AtPathologist SignatureMAGNESIUM2.01.8 - 2.6 mg/dL03/22/2025 6:24 AM [facility] LABORATORYSpecimen (Source)Anatomical Location / LateralityCollection Method / VolumeCollection TimeReceived Time BloodVenous blood / UnknownVenipuncture / Cblqieg4403/22/2025 5:29 AM EST 03/22/2025 5:50 AM EST Narrative Authorizing ProviderResult TypeResult StatusRicarda Reece MDLAB BLOOD ORDERABLES Final ResultPerforming OrganizationAddressCity/State/ZIP CodePhone Number [facility] [address] [place] [address], * Troponin I, High Sensitivity 1 Hour (03/21/2025 5:08 PM EST)ComponentValueRef RangeTest MethodAnalysis TimePerformed AtPathologist SignatureTROPONIN I, HIGH ICNLVSWETWG98<21 ng/L105/22/2024 6:38 PM [facility] Specimen (Source)Anatomical Location / LateralityCollection Method / Volume Collection TimeReceived TimeBloodVenous blood / UnknownVenipuncture / Unknown 03/21/2025 5:08 PM EST03/21/2025 5:59 PM EST Narrative Authorizing ProviderResult TypeResult StatusTaylmaritza ARCHIBALD BLOOD ORDERABLESFinal ResultPerforming OrganizationAddressCity/State/ZIP CodePhone Number [facility] [address] [place] [address], * ECG 12 Lead (03/21/2025 3:44 PM EST)Specimen (Source)Anatomical Location / LateralityCollection Method / VolumeCollection TimeReceived Time03/21/2025 3:44 PM EST Narrative TRACEMASTERVUE - 03/22/2025 8:33 AM EST Authorizing ProviderResult TypeResult StatusTaylmaritza ROJO ORDERABLES Final ResultPerforming OrganizationAddressCity/State/ZIP CodePhone Number [facility] * Troponin I, High Sensitivity 0 Hour (03/21/2025 3:18 PM EST)ComponentValueRef RangeTest MethodAnalysis TimePerformed AtPathologist SignatureTROPONIN I, HIGH CDZAMUGVOVF84<21 ng/L105/22/2024 4:00 PM [facility] Specimen (Source)Anatomical Location / LateralityCollection Method / Volume Collection TimeReceived TimeBloodVenous blood / UnknownVenipuncture / Unknown 03/21/2025 3:18 PM EST03/21/2025 3:26 PM EST Narrative Authorizing ProviderResult TypeResult StatusTaylor Trey Albert MDLAB BLOOD ORDERABLESFinal ResultPerforming OrganizationAddressCity/State/ZIP CodePhone Number [facility] [address] [place] [address], * Hemodialysis inpatient (03/21/2025 2:30 PM EST) Narrative Adelaide Garza LPN - 03/21/2025 2:30 PM EST Adelaide Garza LPN 03/21/2025 3:20 PM Patient completed 82 minutes of HD, ending treatment 1 hour and 38 minutes early, MD aware. Patient became increasingly agitated and needed frequent reminders to stay in bed. PVCs were noted on monitor and fluid removal was stopped. Patient would occasionally stare and not respond to his name for a few seconds. Patient began moaning and called out it hurts to breathe and was rinsed back, 2L O2 applied via nasal cannula. Rapid response called. Patient continued to have intermittent PVCs, triggering pacemaker. Blood pressure remained stable. Patient taken back to room. Report given to charge nurse. Post BP 142/87 Unable to obtain post weight Authorizing ProviderResult TypeResult StatusDanial Sharma MDDIALYSIS ORDERABLES Final Result * ABO Rh Repeat (03/21/2025 6:42 AM EST)ComponentValueRef RangeTest Method Analysis TimePerformed AtPathologist KhrmayybbMWOS91/09/2025 7:49 AM ESTTTH LALA - IMKIYKYFNGogochzi71/09/2025 7:49 AM ESTTT LALA - NORASpecimen (Source) Anatomical Location / LateralityCollection Method / VolumeCollection Time Received TimeBloodVenous blood / UnknownVenipuncture / Ebbodco4503/21/2025 6:42 AM EST03/21/2025 7:22 AM EST Narrative Authorizing ProviderResult TypeResult StatusEzio Mccabe MDBLOOD BANK TEST ORDERABLESFinal ResultPerforming OrganizationAddressCity/State/ZIP CodePhone Number [facility] [place] [address] [place] [address], [place] * CK Total (03/21/2025 6:42 AM EST)ComponentValueRef RangeTest MethodAnalysis TimePerformed AtPathologist VyskrodsdTRP9369 - 195 U/L105/22/2024 9:20 AM EST [facility] LABORATORYSpecimen (Source)Anatomical Location / LateralityCollection Method / VolumeCollection TimeReceived TimeBloodVenous blood / UnknownVenipuncture / Snpxmms3003/21/2025 6:42 AM EST03/21/2025 7:22 AM EST Narrative Authorizing ProviderResult TypeResult StatusLamich Maria Juvenal MATERIAL REQUISITIONER-CNPLAB BLOOD ORDERABLESFinal ResultPerforming OrganizationAddressCity/State/ZIP CodePhone Number [facility] [address] [place] [address], [place] [phone] * (ABNORMAL) CBC auto differential (03/21/2025 6:42 AM EST)ComponentValueRef RangeTest MethodAnalysis TimePerformed AtPathologist SignatureWBC4.74 - 11 10^903/21/2025 7:39 AM [facility] LABORATORYRBC Count2.31 (L)4.1 - 5.7 10^12L105/22/2024 7:39 AM [facility] Hemoglobin7.4(L)13 - 17 g/dL03/21/2025 7:39 AM [facility] XNCTLJUXWDCxmagqummc99.8(L)39 - 50 %03/21/2025 7:39 AM [facility] WVHORKDLBDORP4589 - 100 fL03/21/2025 7:39 AM [facility] RRVUBNLAODXHR50.927 - 34 pg03/21/2025 7:39 AM [facility] JHAMPYMWMNANJK14.932 - 36 g/dL03/21/2025 7:39 AM [facility] JLWYTKZCNJBNW28.2(H)11.5 - 15 %03/21/2025 7:39 AM [facility] LABORATORYPlatelet Pncqz301268 - 450 10^9L105/22/2024 7:39 AM [facility] LABORATORYMPV7.47 - 12 fL03/21/2025 7:39 AM [facility] LABORATORYNeutrophils %70.8%03/21/2025 7:39 AM [facility] LABORATORYLymphocytes %12.1%03/21/2025 7:39 AM [facility] LABORATORYMonocytes %8.6%03/21/2025 7:39 AM [facility] LABORATORYEosinophils %7.5%03/21/2025 7:39 AM [facility] LABORATORYBasophils %1.0%03/21/2025 7:39 AM [facility] LABORATORYNeutrophils Absolute (A)3.31.5 - 6.6 10^9/L 03/21/2025 7:39 AM [facility] LABORATORYLymphocytes Absolute 0.6(L)1.0 - 3.5 10^9/L105/22/2024 7:39 AM [facility] LABORATORYMonocytes Absolute0.40.0 - 0.9 10^9/L105/22/2024 7:39 AM [facility] LABORATORYEosinophils Absolute0.40.0 - 0.4 10^9/L105/22/2024 7:39 AM [facility] LABORATORYBasophils Absolute0.00.0 - 0.2 10^9/L105/22/2024 7:39 AM [facility] LABORATORYDifferential TypeAUTOMATED ZWNBPYCFAJUF83/08/2025 7:39 AM [facility] LABORATORYSpecimen (Source)Anatomical Location / LateralityCollection Method / VolumeCollection TimeReceived TimeBloodVenous blood / UnknownVenipuncture / Xxfbawk5203/21/2025 6:42 AM EST03/21/2025 7:22 AM EST Narrative Authorizing ProviderResult TypeResult StatusRujanie ARCHIBALD BLOOD ORDERABLES Final ResultPerforming OrganizationAddressCity/State/ZIP CodePhone Number [facility] [address] [place] [id number], * (ABNORMAL) Comprehensive metabolic panel (03/21/2025 6:42 AM EST)Component ValueRef RangeTest MethodAnalysis TimePerformed AtPathologist SignatureSODIUM 134253 - 146 mmol/L105/22/2024 7:53 AM [facility] POTASSIUM4.23.5 - 5.0 mmol/L105/22/2024 7:53 AM [facility] PIGGNHEAOUOBVMPNBA110(H)98 - 109 mmol/L105/22/2024 7:53 AM [facility] LABORATORYCARBON FNBEKAP9137 - 32 mmol/L105/22/2024 7:53 AM [facility] LABORATORYANION XYI543 - 15 mmol/L105/22/2024 7:53 AM EST [facility] LABORATORYBLOOD UREA YUAGVZBU06(H)5 - 27 mg/dL 03/21/2025 7:53 AM [facility] LABORATORYCREATININE2.39(H)0.60 - 1.30 mg/dL03/21/2025 7:53 AM [facility] LABORATORYComment: METHOD TRACEABLE TO IDMS WOMFBVPRFBAFRXQ815(H)65 - 99 mg/dL03/21/2025 7:53 AM [facility] LABORATORYCALCIUM9.38.5 - 10.5 mg/dL03/21/2025 7:53 AM [facility] LABORATORYTOTAL PROTEIN6.46.0 - 8.0 g/dL 03/21/2025 7:53 AM [facility] LABORATORYALBUMIN3.33.2 - 5.3 g/dL03/21/2025 7:53 AM [facility] LABORATORYALKALINE NCULXYWOXVC152(H)39 - 130 U/L105/22/2024 7:53 AM [facility] LABORATORYAST8<=41 U/L105/22/2024 7:53 AM [facility] LABORATORYALT8<=40 U/L105/22/2024 7:53 AM [facility] LABORATORYBILIRUBIN,TOTAL0.70.3 - 1.2 mg/dL03/21/2025 7:53 AM [facility] LABOR[facility]ORYEGFR Non-Race Qxkkntnun72(L)>=60 ml/min/1.73sq.m 03/21/2025 7:53 AM [facility] LABORATORYComment: Reported eGFR is based on the CKD-EPI 2020 equation that does not use a race coefficient. Specimen (Source)Anatomical Location / LateralityCollection Method / Volume Collection TimeReceived TimeBloodVenous blood / UnknownVenipuncture / Unknown 03/21/2025 6:42 AM EST03/21/2025 7:22 AM EST Narrative Authorizing ProviderResult TypeResult StatusEzio Mccabe MDLAB BLOOD ORDERABLES Final ResultPerforming OrganizationAddressCity/State/ZIP CodePhone Number [facility] [address] [place] [address], * Magnesium (03/21/2025 6:42 AM EST)ComponentValueRef RangeTest MethodAnalysis TimePerformed AtPathologist SignatureMAGNESIUM2.11.8 - 2.6 mg/dL03/21/2025 7:53 AM [facility] LABORATORYSpecimen (Source)Anatomical Location / LateralityCollection Method / VolumeCollection TimeReceived Time BloodVenous blood / UnknownVenipuncture / Lovwter9003/21/2025 6:42 AM EST 03/21/2025 7:22 AM EST Narrative Authorizing ProviderResult TypeResult StatusRicarda Reece MDLAB BLOOD ORDERABLES Final ResultPerforming OrganizationAddressCity/State/ZIP CodePhone Number [facility] [address] [place] [address], * Fluoroscopy swallow motility function (03/19/2025 10:17 AM EST)Anatomical RegionLateralityModalityChest, Abdomen, BodyRadio FluoroscopySpecimen (Source) Anatomical Location / LateralityCollection Method / VolumeCollection Time Received Time03/19/2025 10:31 AM EST Narrative 03/19/2025 10:39 AM EST FL SWALLOW MOTILITY FUNCTION HISTORY: Oropharyngeal dysphagia COMPARISON: None TECHNIQUE: Video fluoroscopic swallow study was performed in conjunction with speech pathologist. Barium contrast materials of varying consistencies administered. FINDINGS: Fluoroscopy time: 2.6 Reference air kerma: 5.4 mGy Runs: 13 Thin: Aspiration Mildly thick: Aspiration Moderately thick: Aspiration Applesauce: No penetration or aspiration. Fruit: No penetration or aspiration. IMPRESSION: 1. ??Abnormal swallow study as described above 2. ??Please correlate with dedicated speech pathology report for additional details and recommendations. Approved by Edward Teran MD ??on 03/19/2025 10:31 AM Kwesi Zamorano have personally reviewed the image(s) and agree with and/or edited the report Finalized by Kwesi Cleary on 03/19/2025 10:39 AM Procedure Note Kwesi Cleary MD - 03/19/2025 FL SWALLOW MOTILITY FUNCTION HISTORY: Oropharyngeal dysphagia COMPARISON: None TECHNIQUE: Video fluoroscopic swallow study was performed in conjunctionwith speech pathologist. Barium contrast materials of varyingconsistencies administered. FINDINGS: Fluoroscopy time: 2.6 Reference air kerma: 5.4 mGy Runs: 13 Thin: Aspiration Mildly thick: Aspiration Moderately thick: Aspiration Applesauce: No penetration or aspiration. Fruit: No penetration or aspiration. IMPRESSION: 1. Abnormal swallow study as described above 2. Please correlate with dedicated speech pathology report for additionaldetails and recommendations. Approved by Edward Teran MD on 03/19/2025 10:31 AM Kwesi Zamorano have personally reviewed the image(s) and agreewith and/or edited the report Finalized by Kwesi Cleary on 03/19/2025 10:39 AM Authorizing ProviderResult TypeResult StatusPrvelma Abel MDIMG FLUOROSCOPY ORDERABLESFinal Result * (ABNORMAL) CBC auto differential (03/19/2025 6:49 AM EST)ComponentValueRef RangeTest MethodAnalysis TimePerformed AtPathologist SignatureWBC4.34 - 11 10^9L105/20/2024 7:17 AM [facility] LABORATORYRBC Count2.53 (L)4.1 - 5.7 10^12/L105/20/2024 7:17 AM [facility] Hemoglobin7.9(L)13 - 17 g/dL03/19/2025 7:17 AM [facility] RBOOXLFNXMPfapwvzvyw36.8(L)39 - 50 %03/19/2025 7:17 AM [facility] UEVDVPBJMEWLB9156 - 100 fL03/19/2025 7:17 AM [facility] QRPAAQMETTDQS48.327 - 34 pg03/19/2025 7:17 AM [facility] CENBIUBPYPOGIZ58.232 - 36 g/dL03/19/2025 7:17 AM [facility] GWLWBKUJJQLEX65.4(H)11.5 - 15 %03/19/2025 7:17 AM [facility] LABORATORYPlatelet Exndi801(L)150 - 450 10^9/L105/20/2024 7:17 AM [facility] LABORATORYMPV8.07 - 12 fL03/19/2025 7:17 AM [facility] LABORATORYNeutrophils %70.1%03/19/2025 7:17 AM [facility] LABORATORYLymphocytes %10.2%03/19/2025 7:17 AM [facility] LABORATORYMonocytes %11.4%03/19/2025 7:17 AM [facility] LABORATORYEosinophils %7.7%03/19/2025 7:17 AM [facility] LABORATORYBasophils %0.6%03/19/2025 7:17 AM [facility] LABORATORYNeutrophils Absolute (A)3.01.5 - 6.6 10^9/L 03/19/2025 7:17 AM [facility] LABORATORYLymphocytes Absolute 0.4(L)1.0 - 3.5 10^9/L105/20/2024 7:17 AM [facility] LABORATORYMonocytes Absolute0.50.0 - 0.9 10^9/L105/20/2024 7:17 AM [facility] LABORATORYEosinophils Absolute0.30.0 - 0.4 10^9/L1/09/2024 7:17 AM [facility] LABORATORYBasophils Absolute0.00.0 - 0.2 10^9/L105/20/2024 7:17 AM [facility] LABORATORYDifferential TypeAUTOMATED NYTCHMLCTUHJ06/06/2025 7:17 AM [facility] LABORATORYSpecimen (Source)Anatomical Location / LateralityCollection Method / VolumeCollection TimeReceived TimeBloodVenous blood / UnknownVenipuncture / Vhhbvio0703/19/2025 6:49 AM EST03/19/2025 7:05 AM EST Narrative Authorizing ProviderResult TypeResult StatusRujanie ARCHIBALD BLOOD ORDERABLES Final ResultPerforming OrganizationAddressCity/State/ZIP CodePhone Number [facility] [address] [place] [address], * (ABNORMAL) Comprehensive metabolic panel (03/19/2025 6:49 AM EST)Component ValueRef RangeTest MethodAnalysis TimePerformed AtPathologist SignatureSODIUM [id number] - 146 mmol/L105/20/2024 7:41 AM [facility] POTASSIUM3.93.5 - 5.0 mmol/L105/20/2024 7:41 AM [facility] GKJSUCJNSUUMBIPQIR51179 - 109 mmol/L105/20/2024 7:41 AM [facility] LABORATORYCARBON MWCMJYM3088 - 32 mmol/L105/20/2024 7:41 AM [facility] LABORATORYANION GAP95 - 15 mmol/L105/20/2024 7:41 AM EST [facility] LABORATORYBLOOD UREA RXKJUILH50(H)5 - 27 mg/dL 03/19/2025 7:41 AM [facility] LABORATORYCREATININE2.23(H)0.60 - 1.30 mg/dL03/19/2025 7:41 AM [facility] LABORATORYComment: METHOD TRACEABLE TO IDMS KCPQFTIKZRFQGPI723(H)65 - 99 mg/dL03/19/2025 7:41 AM [facility] LABORATORYCALCIUM9.08.5 - 10.5 mg/dL03/19/2025 7:41 AM [facility] LABORATORYTOTAL PROTEIN6.46.0 - 8.0 g/dL 03/19/2025 7:41 AM [facility] LABORATORYALBUMIN3.33.2 - 5.3 g/dL03/19/2025 7:41 AM [facility] LABORATORYALKALINE MMLIHMUUXKZ520(H)39 - 130 U/L105/20/2024 7:41 AM [facility] JSGQJCIMDHYRB70<=41 U/L105/20/2024 7:41 AM [facility] LABORATORYALT6<=40 U/L105/20/2024 7:41 AM [facility] LABORATORYBILIRUBIN,TOTAL0.70.3 - 1.2 mg/dL03/19/2025 7:41 AM [facility] LABORATORYEGFR Non-Race Zsjkeasvh02(L)>=60 ml/min/1.73sq.m 03/19/2025 7:41 AM [facility] LABORATORYComment: Reported eGFR is based on the CKD-EPI 2020 equation that does not use a race coefficient. Specimen (Source)Anatomical Location / LateralityCollection Method / Volume Collection TimeReceived TimeBloodVenous blood / UnknownVenipuncture / Unknown 03/19/2025 6:49 AM EST03/19/2025 7:03 AM EST Narrative Authorizing ProviderResult TypeResult StatusRujanie ARCHIBALD BLOOD ORDERABLES Final ResultPerforming OrganizationAddressCity/State/ZIP CodePhone Number [facility] [address] [place] [address], * Blood culture #2 (03/19/2025 6:49 AM EST)ComponentValueRef RangeTest Method Analysis TimePerformed AtPathologist SignatureCULTURE RESULTSNO GROWTH 5 DAYS 03/24/2025 8:02 AM [facility] LABORATORYSpecimen (Source) Anatomical Location / LateralityCollection Method / VolumeCollection Time Received TimeBloodVenous blood / UnknownVenipuncture / Edtditx6903/19/2025 6:49 AM EST03/19/2025 7:01 AM EST Narrative [facility] - 03/24/2025 8:02 AM EST Suboptimal volume of blood collected, Results may be affected. Authorizing ProviderResult TypeResult StatusJasper Tracy [facility] H[facility]PITALICROBIOLOGY - GENERAL ORDERABLESFinal ResultPerforming OrganizationAddressCity/State/ZIP CodePhone Number [facility] [address] [place] [address], * Blood culture #1 (03/19/2025 6:49 AM EST)ComponentValueRef RangeTest Method Analysis TimePerformed AtPathologist SignatureCULTURE RESULTSNO GROWTH 5 DAYS 03/24/2025 8:02 AM [facility] LABORATORYSpecimen (Source) Anatomical Location / LateralityCollection Method / VolumeCollection Time Received TimeBloodVenous blood / UnknownVenipuncture / Gbzubmq4703/19/2025 6:49 AM EST03/19/2025 7:01 AM EST Narrative [facility] - 03/24/2025 8:02 AM EST Suboptimal volume of blood collected, Results may be affected. Authorizing ProviderResult TypeResult StatusJasper Tracy [facility]PITALROBIOLOGY - GENERAL ORDERABLESFinal ResultPerforming OrganizationAddressCity/State/ZIP CodePhone Number [facility] [address] [place] [address], * X-ray chest 1 view (03/19/2025 4:52 AM EST)Anatomical RegionLateralityModality Body, ChestN/AComputed RadiographySpecimen (Source)Anatomical Location / LateralityCollection Method / VolumeCollection TimeReceived Time03/19/2025 5:00 AM EST Narrative 03/19/2025 5:03 AM EST History: ??Follow-up for infiltrate right lung. Exam/Technique: ??Portable ??upright AP chest Comparison: ??03/16/2025 Findings: ??Right-sided tunneled dialysis catheter, transvenous pacemaker, and changes from previous open heart surgery all unaltered. ?? Infiltrate at the right lung base appears more extensive than on the previous study.. Cardiomegaly appears unchanged with interval increase in vascular congestion IMPRESSION: Airspace infiltrate at the right lung base appears more extensive than on the previous study suggestive of pneumonia. Pulmonary vascular congestion has also increased. Finalized by Erwin Rivero MD on 03/19/2025 5:03 AM Procedure Note Erwin Rivero MD - 03/19/2025 History: Follow-up for infiltrate right lung. Exam/Technique: Portableupright AP chest Comparison: 03/16/2025 Findings: Right-sided tunneled dialysis catheter, transvenous pacemaker,and changes from previous open heart surgery all unaltered. Infiltrate at the right lung base appears more extensive than on theprevious study.. Cardiomegaly appears unchanged with interval increase in vascularcongestion IMPRESSION: Airspace infiltrate at the right lung base appears moreextensive than on the previous study suggestive of pneumonia. Pulmonary vascular congestion has also increased. Finalized by Erwin Rivero MD on 03/19/2025 5:03 AM Authorizing ProviderResult TypeResult StatusSean GRAMAJO DIAGNOSTIC IMAGING ORDERABLESFinal Result * Cortisol (03/18/2025 2:24 PM EST)ComponentValueRef RangeTest MethodAnalysis TimePerformed AtPathologist SignatureCORTISOL, TOTAL17.2ug/dL03/18/2025 3:25 PM [facility] LABORATORYSpecimen (Source)Anatomical Location / LateralityCollection Method / VolumeCollection TimeReceived TimeBloodVenous blood / Owvmvfv6603/18/2025 2:24 PM EST03/18/2025 2:42 PM EST Narrative [facility] - 03/18/2025 3:25 PM EST Due to the diurnal variation of cortisol levels in normal subjects, all cortisol measurments should be referenced to the time of day of sample collection. AM Cortisol Age>=6 6.7-22.4 ug/dL PM Cortisol Age>=6 <10 ug/dL Authorizing ProviderResult TypeResult Dominick Mckeon [facility] BLOOD ORDERABLESFinal ResultPerforming OrganizationAddressCity/State/ZIP CodePhone Number [facility] [address] [place] [address], [place] [phone] * Hemodialysis inpatient (03/18/2025 11:02 AM EST) Narrative Jelena Arboleda RN - 03/18/2025 11:02 AM EST Jelena Arboleda RN 03/18/2025 11:50 AM Pt completed 3 hour HD treatment. Pt tolerated well. VSS. Pt was given scheduled dose of midodrine beginning of treatment. Pt's catheter functioned well at 350 bfr. Post BP 100/52 Post weight. 83.1kg Orders for no fluid removal Authorizing ProviderResult TypeResult StatusDanial Sharma MDDIALYSIS ORDERABLES Final Result * (ABNORMAL) Hemoglobin (03/18/2025 5:03 AM EST)ComponentValueRef RangeTest MethodAnalysis TimePerformed AtPathologist SignatureHemoglobin7.4(L)13 - 17 g/dL03/18/2025 5:28 AM [facility] LABORATORYSpecimen (Source) Anatomical Location / LateralityCollection Method / VolumeCollection Time Received TimeBloodVenous blood / Czifvyl9403/18/2025 5:03 AM EST03/18/2025 5:11 AM EST Narrative Authorizing ProviderResult TypeResult Ludin ARCHIBALD BLOOD ORDERABLES Final ResultPerforming OrganizationAddressCity/State/ZIP CodePhone Number [facility] [address] [place] [address], [place] [phone] * (ABNORMAL) Procalcitonin (03/18/2025 2:03 AM EST)ComponentValueRef RangeTest MethodAnalysis TimePerformed AtPathologist MsenowqlqHWMTBNTBMMZSZ83.33(H)<0.05 ng/mL03/18/2025 7:56 AM [facility] LABORATORYSpecimen (Source)Anatomical Location / LateralityCollection Method / VolumeCollection TimeReceived TimeBloodVenous blood / Sgwwiur1103/18/2025 2:03 AM EST03/18/2025 2:16 AM EST Narrative [facility] - 03/18/2025 7:56 AM EST <0.50 ng/mL - Low risk of severe sepsis and/or septic shock. <2.00 ng/mL - Recommend retesting within 6-24 hours. >2.00 ng/mL - High risk of sepsis and/or septic shock. Authorizing ProviderResult TypeResult StatusMaram Fany ARCHIBALD BLOOD ORDERABLESFinal ResultPerforming OrganizationAddressCity/State/ZIP CodePhone Number [facility] [address] [place] [address], * (ABNORMAL) CBC auto differential (03/18/2025 2:03 AM EST)ComponentValueRef RangeTest MethodAnalysis TimePerformed AtPathologist SignatureWBC4.64 - 11 10^9/L105/19/2024 2:30 AM [facility] LABORATORYRBC Count2.29 (L)4.1 - 5.7 10^12/L105/19/2024 2:30 AM [facility] Hemoglobin7.2(L)13 - 17 g/dL03/18/2025 2:30 AM [facility] PSIOBOCNKWNwtercdnkz99.6(L)39 - 50 %03/18/2025 2:30 AM [facility] JHGONGOFKQMCL0687 - 100 fL03/18/2025 2:30 AM [facility] CVXPPKARVKKPK37.627 - 34 pg03/18/2025 2:30 AM [facility] NDCILDUJCREGME33.532 - 36 g/dL03/18/2025 2:30 AM [facility] FOFWPCCVOYYJX90.7(H)11.5 - 15 %03/18/2025 2:30 AM [facility] LABORATORYPlatelet Tkzmd129(L)150 - 450 10^9/L105/19/2024 2:30 AM EST [facility] LABORATORYMPV8.07 - 12 fL03/18/2025 2:30 AM [facility] LABORATORYNeutrophils %77.6%03/18/2025 2:30 AM [facility] LABORATORYLymphocytes %7.9%03/18/2025 2:30 AM [facility] LABORATORYMonocytes %10.1%03/18/2025 2:30 AM [facility] LABORATORYEosinophils %3.7%03/18/2025 2:30 AM [facility] LABORATORYBasophils %0.7%03/18/2025 2:30 AM [facility] LABORATORYNeutrophils Absolute (A)3.61.5 - 6.6 10^9/L 03/18/2025 2:30 AM [facility] LABORATORYLymphocytes Absolute 0.4(L)1.0 - 3.5 10^9/L105/19/2024 2:30 AM [facility] LABORATORYMonocytes Absolute0.50.0 - 0.9 10^9/L105/19/2024 2:30 AM [facility] LABORATORYEosinophils Absolute0.20.0 - 0.4 10^9/L105/19/2024 2:30 AM [facility] LABORATORYBasophils Absolute0.00.0 - 0.2 10^9/L105/19/2024 2:30 AM [facility] LABORATORYDifferential TypeAUTOMATED MRFVEVAYKLLD10/05/2025 2:30 AM [facility] LABORATORYSpecimen (Source)Anatomical Location / LateralityCollection Method / VolumeCollection TimeReceived TimeBloodVenous blood / Bzswbcz9803/18/2025 2:03 AM EST03/18/2025 2:16 AM EST Narrative Authorizing ProviderResult TypeResult StatusRujanie ARCHIBALD BLOOD ORDERABLES Final ResultPerforming OrganizationAddressCity/State/ZIP CodePhone Number [facility] [address] [place] [address], * (ABNORMAL) Comprehensive metabolic panel (03/18/2025 2:03 AM EST)Component ValueRef RangeTest MethodAnalysis TimePerformed AtPathologist SignatureSODIUM 461862 - 146 mmol/L105/19/2024 2:46 AM [facility] POTASSIUM3.93.5 - 5.0 mmol/L105/19/2024 2:46 AM [facility] DYTEUYDRBSOXSMUFBO95978 - 109 mmol/L105/19/2024 2:46 AM [facility] LABORATORYCARBON MSSATNK6161 - 32 mmol/L105/19/2024 2:46 AM [facility] LABORATORYANION QOD630 - 15 mmol/L105/19/2024 2:46 AM [facility] LABORATORYBLOOD UREA SUGZSOBZ77(H)5 - 27 mg/dL 03/18/2025 2:46 AM [facility] LABORATORYCREATININE3.33(H)0.60 - 1.30 mg/dL03/18/2025 2:46 AM [facility] LABORATORYComment: METHOD TRACEABLE TO IDAL BOSXGODSYFSEVKD963(H)65 - 99 mg/dL03/18/2025 2:46 AM [facility] LABORATORYCALCIUM8.88.5 - 10.5 mg/dL03/18/2025 2:46 AM [facility] LABORATORYTOTAL PROTEIN5.9(L)6.0 - 8.0 g/dL03/18/2025 2:46 AM [facility] LABORATORYALBUMIN3.0(L)3.2 - 5.3 g/dL03/18/2025 2:46 AM [facility] LABORATORYALKALINE ZXTPVQELTEY43635 - 130 U/L105/19/2024 2:46 AM [facility] YFHOLYYDDKNRZ57<=41 U/L105/19/2024 2:46 AM [facility] LABORATORYALT8<=40 U/L105/19/2024 2:46 AM [facility] LABORATORYBILIRUBIN,TOTAL0.70.3 - 1.2 mg/dL03/18/2025 2:46 AM [facility] LABORATORYEGFR Non-Race Efjqiudug62(L)>=60 ml/min/1.73sq.m 03/18/2025 2:46 AM [facility] LABORATORYComment: Reported eGFR is based on the CKD-EPI 2020 equation that does not use a race coefficient. Specimen (Source)Anatomical Location / LateralityCollection Method / Volume Collection TimeReceived TimeBloodVenous blood / Hslfwnu0303/18/2025 2:03 AM EST 03/18/2025 2:16 AM EST Narrative Authorizing ProviderResult TypeResult StatusEzio ARCHIBALD BLOOD ORDERABLES Final ResultPerforming OrganizationAddressCity/State/ZIP CodePhone Number [facility] [address] [place] [address], [place] [phone] * Ionized magnesium (03/17/2025 11:36 AM EST)ComponentValueRef RangeTest Method Analysis TimePerformed AtPathologist SignatureIONIZED MAGNESIUM0.650.45 - 0.74 mmol/L105/18/2024 12:07 PM [facility] LABORATORYSpecimen (Source)Anatomical Location / LateralityCollection Method / VolumeCollection TimeReceived TimeBloodVenous blood / Wwmusuj2303/17/2025 11:36 AM EST03/17/2025 11:46 AM EST Narrative Authorizing ProviderResult TypeResult StatusSumit Osborne MDLAB BLOOD ORDERABLESFinal ResultPerforming OrganizationAddressCity/State/ZIP CodePhone Number [facility] [address] [place] [address], [place] [phone] * (ABNORMAL) Hemoglobin and hematocrit, blood (03/17/2025 7:40 AM EST)Component ValueRef RangeTest MethodAnalysis TimePerformed AtPathologist Signature Hemoglobin8.0(L)13 - 17 g/dL03/17/2025 8:16 AM [facility] QZPCRGUBGPAfsgouvvjg48.0(L)39 - 50 %03/17/2025 8:16 AM [facility] LABORATORYSpecimen (Source)Anatomical Location / LateralityCollection Method / VolumeCollection TimeReceived TimeBloodVenous blood / Unknown 03/17/2025 7:40 AM EST03/17/2025 7:52 AM EST Narrative Authorizing ProviderResult TypeResult StatusJasper Tracy MDLAB BLOOD ORDERABLESFinal ResultPerforming OrganizationAddressCity/State/ZIP CodePhone Number [facility] [address] [place] [address], [place] [phone] * Potassium (03/17/2025 6:27 AM EST)ComponentValueRef RangeTest MethodAnalysis TimePerformed AtPathologist SignaturePOTASSIUM4.33.5 - 5.0 mmol/L105/18/2024 7:05 AM [facility] LABORATORYSpecimen (Source)Anatomical Location / LateralityCollection Method / VolumeCollection TimeReceived Time BloodVenous blood / Jdtawyy8503/17/2025 6:27 AM EST03/17/2025 6:38 AM EST Narrative Authorizing ProviderResult TypeResult StatusSumit Osborne MILAB BLOOD ORDERABLESFinal ResultPerforming OrganizationAddressCity/State/ZIP CodePhone Number [facility] [address] [place] [address], * (ABNORMAL) Magnesium (03/17/2025 2:23 AM EST)ComponentValueRef RangeTest MethodAnalysis TimePerformed AtPathologist SignatureMAGNESIUM1.7(L)1.8 - 2.6 mg/dL03/17/2025 4:48 AM [facility] LABORATORYSpecimen (Source)Anatomical Location / LateralityCollection Method / VolumeCollection TimeReceived TimeBloodVenous blood / Xtazlut9303/17/2025 2:23 AM EST03/17/2025 2:33 AM EST Narrative Authorizing ProviderResult TypeResult Ludin Atkins [facility] BLOOD ORDERABLES Final ResultPerforming OrganizationAddressCity/State/ZIP CodePhone Number [facility] [address] [place] [address], * (ABNORMAL) Bedside Glucose *Place/Obtain serum glucose if >500 per glucometer. (03/17/2025 2:23 AM EST)ComponentValueRef RangeTest MethodAnalysis Time Performed AtPathologist SignatureBedside Glucose (POC)180(H)65 - 99 mg/dL 03/17/2025 2:28 AM [facility] LABORATORYSpecimen (Source)Anatomical Location / LateralityCollection Method / VolumeCollection TimeReceived Time arterial//04/2025 2:23 AM EST03/17/2025 2:28 AM EST Narrative Authorizing ProviderResult TypeResult StatusAhmad Alratroot MDPOINT OF CARE TEST ORDERABLESFinal ResultPerforming OrganizationAddressCity/State/ZIP CodePhone Number [facility] [address] [place] [address], [place] * (ABNORMAL) CBC auto differential (03/17/2025 2:23 AM EST)ComponentValueRef RangeTest MethodAnalysis TimePerformed AtPathologist SignatureWBC5.04 - 11 10^9/L105/18/2024 2:49 AM [facility] LABORATORYRBC Count2.18 (L)4.1 - 5.7 10^12/L105/18/2024 2:49 AM [facility] Hemoglobin7.0(L)13 - 17 g/dL03/17/2025 2:49 AM [facility] EEWEFPSPLASadaignahm43.5(L)39 - 50 %03/17/2025 2:49 AM [facility] EDITTOMNADYFI7049 - 100 fL03/17/2025 2:49 AM [facility] RFYKJPTCJBEJI62.027 - 34 pg03/17/2025 2:49 AM [facility] CDBWYDEPOPXJEF96.032 - 36 g/dL03/17/2025 2:49 AM [facility] BXCJZHZEXMQJV64.5(H)11.5 - 15 %03/17/2025 2:49 AM [facility] LABORATORYPlatelet Count77(L)150 - 450 10^9/L105/18/2024 2:49 AM [facility] LABORATORYMPV8.07 - 12 fL03/17/2025 2:49 AM [facility] LABORATORYNeutrophils %80.9%03/17/2025 2:49 AM [facility] LABORATORYLymphocytes %8.2%03/17/2025 2:49 AM [facility] LABORATORYMonocytes %8.5%03/17/2025 2:49 AM [facility] LABORATORYEosinophils %1.8%03/17/2025 2:49 AM [facility] LABORATORYBasophils %0.6%03/17/2025 2:49 AM [facility] LABORATORYNeutrophils Absolute (A)4.01.5 - 6.6 10^9/L 03/17/2025 2:49 AM [facility] LABORATORYLymphocytes Absolute 0.4(L)1.0 - 3.5 10^9/L105/18/2024 2:49 AM [facility] LABORATORYMonocytes Absolute0.40.0 - 0.9 10^9/L105/18/2024 2:49 AM [facility] LABORATORYEosinophils Absolute0.10.0 - 0.4 10^9/L105/18/2024 2:49 AM [facility] LABORATORYBasophils Absolute0.00.0 - 0.2 10^9/L105/18/2024 2:49 AM [facility] LABORATORYDifferential TypeAUTOMATED FMYEKAOWNNRN99/04/2025 2:49 AM [facility] LABORATORYSpecimen (Source)Anatomical Location / LateralityCollection Method / VolumeCollection TimeReceived TimeBloodVenous blood / Pgmeqnn1603/17/2025 2:23 AM EST03/17/2025 2:33 AM EST Narrative Authorizing ProviderResult TypeResult StatusRupes Estelle ARCHIBALD BLOOD ORDERABLES Final ResultPerforming OrganizationAddressCity/State/ZIP CodePhone Number [facility] [address] [place] [address], * (ABNORMAL) Comprehensive metabolic panel (03/17/2025 2:23 AM EST)Component ValueRef RangeTest MethodAnalysis TimePerformed AtPathologist SignatureSODIUM 554705 - 146 mmol/L105/18/2024 3:21 AM [facility] POTASSIUM3.53.5 - 5.0 mmol/L105/18/2024 3:21 AM [facility] OGJMCGWKTUQDODSZVT63028 - 109 mmol/L105/18/2024 3:21 AM [facility] LABORATORYCARBON PGGEUXU4547 - 32 mmol/L105/18/2024 3:21 AM [facility] LABORATORYANION WGA067 - 15 mmol/L105/18/2024 3:21 AM [facility] LABORATORYBLOOD UREA DNVHJECF84(H)5 - 27 mg/dL 03/17/2025 3:21 AM [facility] LABORATORYCREATININE2.28(H)0.60 - 1.30 mg/dL03/17/2025 3:21 AM [facility] LABORATORYComment: METHOD TRACEABLE TO IDAL AAXYIBYNJIZUWIN641(H)65 - 99 mg/dL03/17/2025 3:21 AM [facility] LABORATORYCALCIUM8.3(L)8.5 - 10.5 mg/dL03/17/2025 3:21 AM [facility] LABORATORYTOTAL PROTEIN5.4(L)6.0 - 8.0 g/dL03/17/2025 3:21 AM [facility] LABORATORYALBUMIN2.8(L)3.2 - 5.3 g/dL03/17/2025 3:21 AM [facility] LABORATORYALKALINE BVTVYSDUXBM28652 - 130 U/L105/18/2024 3:21 AM [facility] DVXCXCYCGFQNE17<=41 U/L105/18/2024 3:21 AM [facility] LABORATORYALT6<=40 U/L105/18/2024 3:21 AM [facility] LABORATORYBILIRUBIN,TOTAL0.80.3 - 1.2 mg/dL03/17/2025 3:21 AM [facility] LABORATORYEGFR Non-Race Yyuwfxhrj29(L)>=60 ml/min/1.73sq.m 03/17/2025 3:21 AM [facility] LABORATORYComment: Reported eGFR is based on the CKD-EPI 2020 equation that does not use a race coefficient. Specimen (Source)Anatomical Location / LateralityCollection Method / Volume Collection TimeReceived TimeBloodVenous blood / Ziujbzt5803/17/2025 2:23 AM EST 03/17/2025 2:33 AM EST Narrative Authorizing ProviderResult TypeResult StatusEzio ARCHIBALD BLOOD ORDERABLES Final ResultPerforming OrganizationAddressCity/State/ZIP CodePhone Number [facility] [address] [place] [address], [place] [phone] * (ABNORMAL) Bedside Glucose *Place/Obtain serum glucose if >500 per glucometer. (03/16/2025 7:17 PM EST)ComponentValueRef RangeTest MethodAnalysis Time Performed AtPathologist SignatureBedside Glucose (POC)118(H)65 - 99 mg/dL 03/16/2025 7:22 PM [facility] LABORATORYSpecimen (Source)Anatomical Location / LateralityCollection Method / VolumeCollection TimeReceived Time arterial/vvixdwknw31/03/2025 7:17 PM EST03/16/2025 7:22 PM EST Narrative Authorizing ProviderResult TypeResult StatusAhmad Alratroot MDPOINT OF CARE TEST ORDERABLESFinal ResultPerforming OrganizationAddressCity/State/ZIP CodePhone Number [facility] [address] [place] [address], [place] * CK Total (03/16/2025 6:01 PM EST)ComponentValueRef RangeTest MethodAnalysis TimePerformed AtPathologist MycholajuFPP34005 - 195 U/L105/17/2024 6:41 PM EST [facility] LABORATORYSpecimen (Source)Anatomical Location / LateralityCollection Method / VolumeCollection TimeReceived TimeBloodVenous blood / Apaljpy4703/16/2025 6:01 PM EST03/16/2025 6:10 PM EST Narrative Authorizing ProviderResult TypeResult StatusSean ARCHIBALD BLOOD ORDERABLESFinal ResultPerforming OrganizationAddressCity/State/ZIP CodePhone Number [facility] [address] [place] [address], * Hemodialysis inpatient (03/16/2025 5:32 PM EST) Narrative Adriane Shen RN - 03/16/2025 5:32 PM EST Adriane Shen RN 03/16/2025 5:34 PM Pt dialyzed for 3 hours with a net gain of 0.1kg Pre wt 83.6kg Poist wt 83.7kg Access functioned well at ordered pump speed. Vancomycin was given at last hour. ??Primary nurse, En, will give arenesp. Authorizing ProviderResult TypeResult StatusDanial Sharma MDDIALYSIS ORDERABLES Final Result * (ABNORMAL) CBC auto differential (03/16/2025 11:32 AM EST)ComponentValueRef RangeTest MethodAnalysis TimePerformed AtPathologist SignatureWBC8.14 - 11 10^9/L105/17/2024 12:15 PM [facility] LABORATORYRBC Count2.53 (L)4.1 - 5.7 10^12/L105/17/2024 12:15 PM [facility] Hemoglobin8.1(L)13 - 17 g/dL03/16/2025 12:15 PM [facility] NQSIJXFMEZInyydavlwm09.9(L)39 - 50 %03/16/2025 12:15 PM [facility] MCUKSLNBEYQAM9808 - 100 fL03/16/2025 12:15 PM [facility] DYLMSHNHVHZEQ47.927 - 34 pg03/16/2025 12:15 PM [facility] OCKTEYEHRTOCYV77.832 - 36 g/dL03/16/2025 12:15 PM [facility] LDZSZUANTTQOE30.4(H)11.5 - 15 %03/16/2025 12:15 PM [facility] LABORATORYPlatelet Count84(L)150 - 450 10^9/L105/17/2024 12:15 PM [facility] LABORATORYMPV8.17 - 12 fL03/16/2025 12:15 PM [facility] LABORATORYNeutrophils %86.6%03/16/2025 12:15 PM [facility] LABORATORYLymphocytes %5.7%03/16/2025 12:15 PM [facility] LABORATORYMonocytes %6.8%03/16/2025 12:15 PM [facility] LABORATORYEosinophils %0.4%03/16/2025 12:15 PM EST [facility] LABORATORYBasophils %0.5%03/16/2025 12:15 PM [facility] LABORATORYNeutrophils Absolute (A)7.0(H)1.5 - 6.6 10^9/L105/17/2024 12:15 PM [facility] LABORATORYLymphocytes Absolute0.5(L)1.0 - 3.5 10^03/16/2025 12:15 PM [facility] LABORATORYMonocytes Absolute0.50.0 - 0.9 10^03/16/2025 12:15 PM [facility] LABORATORYEosinophils Absolute0.00.0 - 0.4 10^03/16/2025 12:15 PM [facility] LABORATORYBasophils Absolute0.00.0 - 0.2 10^03/16/2025 12:15 PM [facility] LABORATORYDifferential TypeAUTOMATED GMSJFILPQORP66/03/2025 12:15 PM [facility] LABORATORYSpecimen (Source)Anatomical Location / LateralityCollection Method / VolumeCollection TimeReceived TimeBloodVenous blood / Xgacwpu8403/16/2025 11:32 AM EST03/16/2025 11:48 AM EST Narrative Authorizing ProviderResult TypeResult StatusRupes Estelle ARCHIBALD BLOOD ORDERABLES Final ResultPerforming OrganizationAddressCity/State/ZIP CodePhone Number [facility] [address] [place] [address], * (ABNORMAL) Comprehensive metabolic panel (03/16/2025 11:32 AM EST)Component ValueRef RangeTest MethodAnalysis TimePerformed AtPathologist SignatureSODIUM 296699 - 146 mmol/L105/17/2024 12:34 PM [facility] POTASSIUM4.13.5 - 5.0 mmol/L105/17/2024 12:34 PM [facility] UXFKKWULXEDFLMFWJB37399 - 109 mmol/L105/17/2024 12:34 PM [facility] LABORATORYCARBON AEZPFIY1294 - 32 mmol/L105/17/2024 12:34 PM [facility] LABORATORYANION NRG680 - 15 mmol/L105/17/2024 12:34 PM [facility] LABORATORYBLOOD UREA SKHWDCZP86(H)5 - 27 mg/dL 03/16/2025 12:34 PM [facility] LABORATORYCREATININE3.86(H) 0.60 - 1.30 mg/dL03/16/2025 12:34 PM [facility] Comment:METHOD TRACEABLE TO IDAL KFDVTABBYUNUJMY371(H)65 - 99 mg/dL03/16/2025 12:34 PM [facility] LABORATORYCALCIUM9.18.5 - 10.5 mg/dL 03/16/2025 12:34 PM [facility] LABORATORYTOTAL PROTEIN6.76.0 - 8.0 g/dL03/16/2025 12:34 PM [facility] LABORATORYALBUMIN3.4 3.2 - 5.3 g/dL03/16/2025 12:34 PM [facility] ALKALINE UKHXZSTGCCD93297 - 130 U/L105/17/2024 12:34 PM [facility] IMTMDHPWHXZPF78<=41 U/L105/17/2024 12:34 PM [facility] LABORATORYALT6<=40 U/L105/17/2024 12:34 PM [facility] LABORATORYBILIRUBIN,TOTAL1.20.3 - 1.2 mg/dL03/16/2025 12:34 PM [facility] LABORATORYEGFR Non-Race Uxjzioqwc63(L)>=60 ml/min/1.73sq.m 03/16/2025 12:34 PM [facility] LABORATORYComment: Reported eGFR is based on the CKD-EPI 2020 equation that does not use a race coefficient. Specimen (Source)Anatomical Location / LateralityCollection Method / Volume Collection TimeReceived TimeBloodVenous blood / Pjujbhp7103/16/2025 11:32 AM EST 03/16/2025 11:48 AM EST Narrative Authorizing ProviderResult TypeResult StatusRupesh Ramtel MIWILLOW BLOOD ORDERABLES Final ResultPerforming OrganizationAddressCity/State/ZIP CodePhone Number [facility] [address] [place] [address], * Blood culture #2 (03/16/2025 10:35 AM EST)ComponentValueRef RangeTest Method Analysis TimePerformed AtPathologist SignatureCULTURE RESULTSNO GROWTH 5 DAYS 03/21/2025 11:01 AM [facility] LABORATORYSpecimen (Source) Anatomical Location / LateralityCollection Method / VolumeCollection Time Received TimeBloodVenous blood / UnknownVenipuncture / Jrbdjzw7403/16/2025 10:35 AM EST03/16/2025 10:44 AM EST Narrative [facility] - 03/21/2025 11:01 AM EST Suboptimal volume of blood collected, Results may be affected. Authorizing ProviderResult TypeResult StatusEzio Mccabe [facility]ITALROBIOLOGY - GENERAL ORDERABLESFinal ResultPerforming OrganizationAddressCity/State/ZIP Code Phone Number [facility] [address] [place] [address], * Blood culture #1 (03/16/2025 10:35 AM EST)ComponentValueRef RangeTest Method Analysis TimePerformed AtPathologist SignatureCULTURE RESULTSNO GROWTH 5 DAYS 03/21/2025 11:01 AM [facility] LABORATORYSpecimen (Source) Anatomical Location / LateralityCollection Method / VolumeCollection Time Received TimeBloodVenous blood / UnknownVenipuncture / Enhuzqv7103/16/2025 10:35 AM EST03/16/2025 10:44 AM EST Narrative [facility] - 03/21/2025 11:01 AM EST Suboptimal volume of blood collected, Results may be affected. Authorizing ProviderResult TypeResult StatusEzio Mccabe [facility] HOSPITALICROBIOLOGY - GENERAL ORDERABLESFinal ResultPerforming OrganizationAddressCity/State/ZIP Code Phone Number [facility] [address] [place] [address], * S Pneumoniae AG, urine (03/16/2025 7:48 AM EST)ComponentValueRef RangeTest MethodAnalysis TimePerformed AtPathologist SignatureS PNEUMONIAE AG UNegative Frbnyojw93/03/2025 10:25 AM [facility] LABORATORYSpecimen (Source)Anatomical Location / LateralityCollection Method / VolumeCollection TimeReceived TimeUrineUrine / Inowfvz8403/16/2025 7:48 AM EST03/16/2025 9:20 AM EST Narrative Authorizing ProviderResult TypeResult Anjelica BEJARANO ORDERABLES Final ResultPerforming OrganizationAddressCity/State/ZIP CodePhone Number [facility] [address] [place] [address], * Legionella antigen, urine (03/16/2025 7:48 AM EST)ComponentValueRef RangeTest MethodAnalysis TimePerformed AtPathologist SignatureLEGIONELLA URINE AG Negative, No L. pneumophila serogroup 1 AntigenNegative, No L. pneumophila serogroup 1 Rxwmldk5903/16/2025 10:25 AM [facility] Specimen (Source)Anatomical Location / LateralityCollection Method / Volume Collection TimeReceived TimeUrineUrine / Irrrssm2003/16/2025 7:48 AM EST 03/16/2025 9:20 AM EST Narrative Authorizing ProviderResult TypeResult Anjelica BEJARANO ORDERABLES Final ResultPerforming OrganizationAddressty/State/ZIP CodePhone Number [facility] [address] [place] [address], * Resp Pathogens Panel/SARS CoV-2 (03/16/2025 7:48 AM EST)ComponentValueRef RangeTest MethodAnalysis TimePerformed AtPathologist SignatureSARS COV 2 BY PCRNot DetectedNot Cskvsaew75/03/2025 9:49 AM [facility] LABORATORYADENOVIRUSNot DetectedNot Gcmjzkby25/03/2025 9:49 AM [facility] LABORATORYCORONAVIRUS 229ENot DetectedNot Dgrutuwf83/03/2025 9:49 AM [facility] LABORATORYCORONAVIRUS AJP5Zuc DetectedNot Nqvjmqqg13/03/2025 9:49 AM [facility] LABORATORYCORONAVIRUS WR22Icg DetectedNot Ldhxbktv16/03/2025 9:49 AM [facility] LABORATORYCORONAVIRUS TJ19Rse DetectedNot Zhttswgf45/03/2025 9:49 AM [facility] LABORATORYHUMAN METAPNEUVIRUSNot DetectedNot Detected 03/16/2025 9:49 AM [facility] LABORATORYRHINO/ENTEROVIRUSNot DetectedNot Nfrdtmik31/03/2025 9:49 AM [facility] INFLUENZA ANot DetectedNot Fogzwxct04/03/2025 9:49 AM [facility] LABORATORYINFLUENZA BNot DetectedNot Qvxbmfkt37/03/2025 9:49 AM [facility] LABORATORYPARAINFLUENZA 1Not DetectedNot Detected 03/16/2025 9:49 AM [facility] LABORATORYPARAINFLUENZA 2Not DetectedNot Viokhzta48/03/2025 9:49 AM [facility] PARAINFLUENZA 3Not DetectedNot Liaeasho21/03/2025 9:49 AM [facility] LABORATORYPARAINFLUENZA 4Not DetectedNot Azfhnblr56/03/2025 9:49 AM [facility] LABORATORYRESP SYNCYTIAL VIRUSNot DetectedNot Ccxyrohw15/03/2025 9:49 AM [facility] LABORATORYBORD PARAPERTUSSISNot DetectedNot Knnvvxna00/03/2025 9:49 AM [facility] LABORATORYBORDETELLA PERTUSSISNot DetectedNot Nlwxlulj28/03/2025 9:49 AM [facility] LABORATORYCHLAM.PNEUMONIAENot DetectedNot Eignbxvu70/03/2025 9:49 AM [facility] LABORATORYMYCOPLASMA PNEUMONIAENot DetectedNot Akfgqviz54/03/2025 9:49 AM [facility] LABORATORYSpecimen (Source)Anatomical Location / LateralityCollection Method / VolumeCollection TimeReceived TimeSwabNasopharyngeal structure / Xpsjjwi1303/16/2025 7:48 AM EST03/16/2025 8:46 AM [facility] LABORATORY - 03/16/2025 9:49 AM [facility] The [employer] Respiratory Panel 2.1 (RP2.1) is a multiplexed nucleic acid test intended for the simultaneous qualitative detection and differentiation of nucleic acid from multiple viral and bacterial respiratory organisms, including nucleic acid from Severe Acute Respiratory Syndrome Coronavirus 2 (SARS-CoV-2), in nasopharyngeal swabs obtained from individuals suspected of COVID-19 by their healthcare provider. Testing is limited to laboratories certified under the Clinical Laboratory Improvement Amendments of 1988 (CLIA), to perform high complexity or moderate complexity tests. SARS-CoV-2 RNA and nucleic acids from the other respiratory viral and bacterial organisms identified by this test are generally detectable in nasopharyngeal swabs during the acute phase of infection.The detection and identification of specific viral and bacterial nucleic acids from individuals exhibiting signs and/or symptoms of respiratory infection is indicative of the presence of the identified microorganism and aids in the diagnosis of respiratory infection if used in conjunction with other clinical and epidemiological information. Positive results are indicative of the presence of the identified organism, but do not rule out co-infection with other pathogens. The agent(s) detected by the [employer] RP2.1 may not be the definite cause of disease and clinical correlation with patient history and other diagnostic information is necessary to determine patient infection status. Negative results in the setting of a respiratory illness may be due to infection with pathogens notdetected by this test, or lower respiratory tract infection that may not be detected by a nasopharyngeal specimen. Negative results do not preclude SARS-CoV-2 infection and should not be used as the sole basis for patient management decisions. Negative HORACIO-CoV-2 results must be combined with clinical observations, patient history and epidemiological information. Negative results for other organisms identified by the test may require additional laboratory testing when evaluating a patient with possible respiratory tract infection. Authorizing ProviderResult TypeResult StatusRupesh [facility] Hospitalte MDMICROBIOLOGY - GENERAL ORDERABLESFinal ResultPerforming OrganizationAddressCity/State/ZIP Code Phone Number [facility] [address] [place] [address], * Mrsa Pcr nasal swab (03/16/2025 7:48 AM EST)ComponentValueRef RangeTest Method Analysis TimePerformed AtPathologist SignatureMRSA PCR NASALNegativeNegative 03/16/2025 9:59 AM [facility]TOD[facility] LAB[facility]ATORYSpecimen (Source) Anatomical Location / LateralityCollection Method / VolumeCollection Time Received TimeSwabStructure of anterior naris / Jxmtvtm8103/16/2025 7:48 AM EST 03/16/2025 8:46 AM EST Narrative Authorizing ProviderResult TypeResult StatusEzio Mccabe MDMICROBIOLOGY - GENERAL ORDERABLESFinal ResultPerforming OrganizationAddressCity/State/ZIP Code Phone Number [facility] [address] [place] [address], [place] [phone] * (ABNORMAL) Bedside Glucose *Place/Obtain serum glucose if >500 per glucometer. (03/16/2025 6:48 AM EST)ComponentValueRef RangeTest MethodAnalysis Time Performed AtPathologist SignatureBedside Glucose (POC)143(H)65 - 99 mg/dL 03/16/2025 6:52 AM [facility] (Source)Anatomical Location / LateralityCollection Method / VolumeCollection TimeReceived Time arterial/sduxlntui09/03/2025 6:48 AM EST03/16/2025 6:52 AM EST Narrative Authorizing ProviderResult TypeResult StatusAhbrandon Alratrmateot MDPOINT OF CARE TEST ORDERABLESFinal ResultPerforming OrganizationAddressCity/State/ZIP CodePhone Number [facility] [address] [place] [address], [place] * (ABNORMAL) B-type natriuretic peptide (03/16/2025 5:38 AM EST)ComponentValue Ref RangeTest MethodAnalysis TimePerformed AtPathologist EbavlfkizZYW901(H) <=100 pg/mL03/16/2025 8:11 AM [facility]YSpecimen (Source)Anatomical Location / LateralityCollection Method / VolumeCollection TimeReceived TimeBloodVenous blood / Uqdjxnl2503/16/2025 5:38 AM EST03/16/2025 5:48 AM EST Narrative Authorizing ProviderResult TypeResult Anjelica Mccabe MDLAB BLOOD ORDERABLES Final ResultPerforming OrganizationAddressCity/State/ZIP CodePhone Number [facility] [address] [place] [address], [place] [phone] * Taylor Top On Ice (03/16/2025 5:38 AM EST)ComponentValueRef RangeTest Method Analysis TimePerformed AtPathologist SignatureExtra TubeAuto Resulted 03/16/2025 7:01 AM [facility]imen (Source) Anatomical Location / LateralityCollection Method / VolumeCollection Time Received TimeBloodVenous blood / Noymxhq5303/16/2025 5:38 AM EST03/16/2025 5:48 AM EST Narrative Authorizing ProviderResult TypeResult StatusDavid Frtiz DOLAB BLOOD ORDERABLES Final ResultPerforming OrganizationAddressCity/State/ZIP CodePhone Number [facility] [address] [place] [address], [place] [phone] * Lavender Top (03/16/2025 5:38 AM EST)ComponentValueRef RangeTest Method Analysis TimePerformed AtPathologist SignatureExtra TubeAuto Resulted 03/16/2025 7:01 AM [facility] (Source) Anatomical Location / LateralityCollection Method / VolumeCollection Time Received TimeBloodVenous blood / Ilwftts6003/16/2025 5:38 AM EST03/16/2025 5:48 AM EST Narrative Authorizing ProviderResult TypeResult StatusDavid Fritz DOLAB BLOOD ORDERABLES Final ResultPerforming OrganizationAddressCity/State/ZIP CodePhone Number [facility] [address] [place] [address], [place] [phone] * PST TOP (03/16/2025 5:38 AM EST)ComponentValueRef RangeTest MethodAnalysis TimePerformed AtPathologist SignatureExtra TubeAuto Rycipaft46/03/2025 7:01 AM [facility]YSpecimen (Source)Anatomical Location / LateralityCollection Method / VolumeCollection TimeReceived TimeBloodVenous blood / Wlffjju1003/16/2025 5:38 AM EST03/16/2025 5:48 AM EST Narrative Authorizing ProviderResult TypeResult StatusDavid Fritz DOLAB BLOOD ORDERABLES Final ResultPerforming OrganizationAddressCity/State/ZIP CodePhone Number [facility] [address] [place] [address], [place] [phone] * Light Blue Top (03/16/2025 5:38 AM EST)ComponentValueRef RangeTest Method Analysis TimePerformed AtPathologist SignatureExtra TubeAuto Resulted 03/16/2025 7:01 AM [facility]pecimen (Source) Anatomical Location / LateralityCollection Method / VolumeCollection Time Received TimeBloodVenous blood / Qolwkqs2103/16/2025 5:38 AM EST03/16/2025 5:48 AM EST Narrative Authorizing ProviderResult TypeResult StatusDavid Fritz DOLAB BLOOD ORDERABLES Final ResultPerforming OrganizationAddressCity/State/ZIP CodePhone Number [facility] [address] [place] [address], * Critical Care (03/16/2025 5:20 AM EST) Aurelio Wong DO - 03/16/2025 5:20 AM EST Aurelio Fritz DO 03/18/2025 12:26 AM Critical Care Performed by: Aurelio Fritz DO Authorized by: Aurelio Fritz DO ?? Critical care provider statement: ??Critical care time (minutes): ??33 ??Critical care time was exclusive of: ??Separately billable procedures and treating other patients and teaching time ??Critical care was necessary to treat or prevent imminent or life-threatening deterioration of the following conditions: ??Sepsis ??Critical care was time spent personally by me on the following activities: ??Ordering and performing treatments and interventions, ordering and review of radiographic studies, ordering and review of laboratory studies, re-evaluation of patient's condition, review of old charts, obtaining history from patient or surrogate, examination of patient, evaluation of patient's response to treatment, discussions with consultants and development of treatment plan with patient or surrogate ??I assumed direction of critical care for this patient from another provider in my specialty: yes ?Care discussed with: admitting provider ?? Authorizing ProviderResult TypeResult StatusDavid Fritz DOPROCEDURE/MINOR SURGICAL ORDERABLESFinal Result documented in this encounter Visit Diagnoses Diagnosis Sepsis with encephalopathy and septic shock, due to unspecified organism ([facility] Primary Sepsis with encephalopathy and septic shock, due to unspecified organism ([facility]) Pneumonia of right lower lobe due to infectious organism ESRD (end stage renal disease) ([facility]) End stage renal disease documented in this encounter Admitting Diagnoses Diagnosis Sepsis with encephalopathy and septic shock, due to unspecified organism ([facility]) documented in this encounter Administered Medications Medication OrderMAR ActionAction DateDoseRateSite acetaminophen (OFIRMEV) IVPB Premix 1,000 mg 1,000 mg, intravenous, at 400 mL/hr, Administer over 15 Minutes, Every 6 hours, First dose on Fri03/16/25 at 1930, For 24 hours New Bag03/17/2025 2:39 PM EST1,000 mg400 mL/hrNew Bag03/17/2025 7:18 AM EST1,000 mg400 mL/hrRate/Dose Ksmkyh0403/17/2025 1:51 AM QDU317 mL/hr acetaminophen (TYLENOL) tablet 650 mg 650 mg, oral, Every 6 hours PRN, mild pain - pain scale 1-3, headaches, temperature greater than 38C, Starting on Ayanna 03/17/25 at 2115 Given03/24/2025 5:16 AM HMR027 ukVrigi8703/23/2025 3:42 PM QNL563 mgGiven 03/23/2025 2:44 AM HMY575 mg amiodarone (PACERONE) tablet 200 mg 200 mg, oral, Daily, First dose on Fri03/19/25 at 1045, Look-alike/sound-alike medication - verify indication for use. Given03/24/2025 8:53 AM CWX837 tlTbjkh4803/23/2025 9:59 AM AAV411 mgGiven 03/22/2025 8:34 AM QWJ052 mg apixaban (ELIQUIS) tablet 5 mg 5 mg, oral, 2 times daily, First dose on Ayanna 03/17/25 at 0900, Indication: Nonvalvular Atrial Fibrillation (NVAF) Given03/21/2025 9:08 PM EST5 tzRimnr3003/21/2025 8:23 AM EST5 cwQzbuy4703/20/2025 8:44 PM EST5 mg apixaban (ELIQUIS) tablet 5 mg 5 mg, oral, 2 times daily, First dose on Fri03/23/25 at 2100, Indication: Nonvalvular Atrial Fibrillation (NVAF) Given03/24/2025 10:07 PM EST5 yhXyizm7703/24/2025 8:51 AM EST5 rfKaiac9603/23/2025 9:31 PM EST5 mg ARIPiprazole (ABILIFY) tablet 10 mg 10 mg, oral, Daily, First dose on Fri03/16/25 at 0900, Look-alike/sound-alike medication - verify indication for use. Given03/24/2025 9:00 AM EST10 kxYnpiu7103/23/2025 10:00 AM EST10 xnJuhih1503/22/2025 8:34 AM EST10 mg aspirin chewable tablet 81 mg 81 mg, nasogastric, Daily, First dose on Fri03/16/25 at 1000 Given03/24/2025 8:53 AM EST81 mrGvdtf8603/23/2025 9:59 AM EST81 ayNzehw5303/21/2025 8:22 AM EST81 mg atorvastatin (LIPITOR) tablet 40 mg 40 mg, nasogastric, Daily, First dose on Fri03/16/25 at 1000, Look-alike/sound-alike medication - verify indication for use. Given03/19/2025 8:31 AM EST40 wvBpfac5703/18/2025 9:36 AM EST40 acXmive9403/17/2025 11:26 AM EST40 mg barium sulfate (VARIBAR NECTAR) 40 % (w/v) suspension 10 mL 10 mL, oral, Once in imaging, contrast, barium sulfate (VARIBAR NECTAR) 40 % (w/v) suspension, Starting on 03/19/25 at 1017, For 1 dose Given03/19/2025 10:24 AM EST30 mL barium sulfate (VARIBAR NECTAR) 40 % (w/v) suspension 10 mL 10 mL, oral, Once in imaging, contrast, barium sulfate (VARIBAR NECTAR) 40 % (w/v) suspension, Starting on Ayanna 03/24/25 at 1043, For 1 dose Given03/24/2025 10:48 AM EST20 mL barium sulfate (VARIBAR PUDDING) 40 % (w/v), 30% (w/w) oral paste 60 mL 60 mL, oral, Once in imaging, contrast, barium sulfate (VARIBAR PUDDING) 40 % (w/v), 30% (w/w) oralpaste, Starting on 03/19/25 at 1017, For 1 dose Given03/19/2025 10:24 AM EST30 mL barium sulfate (VARIBAR PUDDING) 40 % (w/v), 30% (w/w) oral paste 60 mL 60 mL, oral, Once in imaging, contrast, barium sulfate (VARIBAR PUDDING) 40 % (w/v), 30% (w/w) oralpaste, Starting on Ayanna 03/24/25 at 1042, For 1 dose Given03/24/2025 10:48 AM EST30 mL barium sulfate (VARIBAR THIN HONEY) 40 %(w/v), 29% (w/w)(1500 CPS) suspension 20 mL 20 mL, oral, Once in imaging, contrast, Radiology, Starting on 03/19/25 at 1020, For 1 dose Given03/19/2025 10:24 AM EST30 mL barium sulfate (VARIBAR THIN HONEY) 40 %(w/v), 29% (w/w)(1500 CPS) suspension 20 mL 20 mL, oral, Once in imaging, contrast, Radiology, Starting on Ayanna 03/24/25 at 1043, For 1 dose Given03/24/2025 10:48 AM EST30 mL barium sulfate (VARIBAR THIN) 81 % (w/w) powder 148 g 148 g, oral, Once in imaging, contrast, barium sulfate (VARIBAR THIN) 40 % (w/v) powder, Starting on 03/19/25 at 1017, For 1 dose Given03/19/2025 10:24 AM EST10 g barium sulfate (VARIBAR THIN) 81 % (w/w) powder 148 g 148 g, oral, Once in imaging, contrast, barium sulfate (VARIBAR THIN) 40 % (w/v) powder, Starting on Ayanna 03/24/25 at 1043, For 1 dose Given03/24/2025 10:48 AM EST20 g budesonide (PULMICORT) nebulizer solution 0.5 mg 0.5 mg, nebulization, Every 12 hours, First dose on Fri03/18/25 at 0900, Rinse mouth after use. Given03/24/2025 9:02 PM EST0.5 usXhvbx6703/24/2025 9:52 AM EST0.5 mgGiven 03/23/2025 8:08 PM EST0.5 mg busPIRone (BUSPAR) tablet 15 mg 15 mg, nasogastric, 3 times daily, First dose on Fri03/16/25 at 1400, Look-alike/sound-alike medication - verify indication for use. Avoid grapefruit juice. Given03/24/2025 10:05 PM EST15 ulIbtai6403/24/2025 4:48 PM EST15 zyJjnia9303/24/2025 5:16 AM EST15 mg calcium gluconate IVPB 1000 mg/50 mL (20 mg/mL premix) 1,000 mg, intravenous, at 50 mL/hr, Administer over 60 Minutes, As needed, for ionized calcium level 3.5 to 4.4 mg/dL, Starting on Fri03/16/25 at 0646, Recheck ionized calcium 6 hours after infusion.Hold calcium replacement for phosphorus greater than 5.5 mg/dL. VESICANT (RED) calcium gluconate IVPB 2000 mg/100 mL (20 mg/mL premix) 2,000 mg, intravenous, at 100 mL/hr, Administer over 60 Minutes, As needed, for ionized calcium level 3 to 3.4 mg/dL, Starting on Fri03/16/25 at 0646, Recheck ionized calcium 6 hours after infusion. Hold calcium replacement for phosphorus greater than 5.5 mg/dL. VESICANT (RED) cholecalciferol (vitamin D3) tablet 1,000 Units 1,000 Units, nasogastric, Daily, First dose on Fri03/16/25 at 1000 Given03/24/2025 8:52 AM EST1,000 GoyjbLznfn59/10/2025 9:59 AM EST1,000 Units Given03/22/2025 8:34 AM EST1,000 Units cyanocobalamin tablet 1,000 mcg 1,000 mcg, nasogastric, Daily, First dose on Fri03/16/25 at 1000 Given03/24/2025 8:51 AM EST1,000 skkJvhmx61/10/2025 10:00 AM EST1,000 mcgGiven 03/22/2025 8:33 AM EST1,000 mcg DAPTOmycin (CUBICIN) 500 mg in sodium chloride 0.9 % 50 mL IVPB 500 mg, intravenous, at 120 mL/hr, Administer over 30 Minutes, Every 48 hours, First dose on 03/19/25 at 1230, Administer after HD on HD days. , Approved Indications: Enterococcus infection other than pneumonia, Authorizing Service: ID consult has been placed, I acknowledge that an appropriate consult is REQUIRED to use this drug at [facility] and [facility] per [facility]-approved policy # MM 1.15: Yes New Bag03/21/2025 3:53 PM [id number] mg120 mL/hrNew Bag03/19/2025 1:26 PM OFP494 mg 120 mL/hr darbepoetin sylwia-polysorbate (ARANESP) injection 60 mcg 60 mcg, subcutaneous, Weekly, First dose on 03/16/25 at 1330, Hemodialysis, Do not administer ifthe patient's hemoglobin is greater than 12 g/dl., Indications: ESRD on Dialysis Indications:ESRD on NzttwldhUknkr11/03/2025 5:48 PM EST60 mcgAbdominal Tissue dexmedeTOMIDine (PRECEDEX) infusion 400 mcg/100 mL in sodium chloride 0.9% (4 mcg/mL premix) 0.1-0.7 mcg/kg/hr ?? 86.5 kg (2.1625-15.1375 mL/hr, rounded to 2.2-15.1 mL/hr), intravenous, Continuous, Starting on 03/16/25 at 1330, Notify prescriber if rate exceeds 1 mcg/kg/hr Look-alike/sound-alike medication - verify indication for use., Monitoring Goals: RASS, Starting Dose (range 0.2-1.4 mcg/kg/hr): 0.2 mcg/kg/hr, Titration Dose Range (range 0.1-0.2 mcg/kg/hr): 0.1 to 0.2 mcg/kg/hr, Titration Frequency - As Frequent As: 15 minutes, Indication: Analgesia Rate/Dose Smqjle2903/16/2025 6:46 PM EST0.4 mcg/kg/hr8.7 mL/hrRate/Dose Verify 03/16/2025 1:50 PM EST0.4 mcg/kg/hr8.7 mL/hrRate/Dose Vnwteu1003/16/2025 1:50 PM EST0.4 mcg/kg/hr8.7 mL/hr dexmedeTOMIDine (PRECEDEX) infusion 400 mcg/100 mL in sodium chloride 0.9% (4 mcg/mL premix) 0.1-0.7 mcg/kg/hr ?? 86.5 kg (2.1625-15.1375 mL/hr, rounded to 2.2-15.1 mL/hr), intravenous, Continuous, Starting on Fri03/16/25 at 1930, Notify prescriber if rate exceeds 1 mcg/kg/hr Look-alike/sound-alike medication - verify indication for use., Monitoring Goals: RASS, Starting Dose (range 0.2-1.4 mcg/kg/hr): 0.2 mcg/kg/hr, Titration Dose Range (range 0.1-0.2 mcg/kg/hr): 0.1 to 0.2 mcg/kg/hr, Titration Frequency - As Frequent As: 15 minutes, Indication: Sedation Rate/Dose Sbrmbb4503/17/2025 9:50 AM EST0.3 mcg/kg/hr6.5 mL/hrRate/Dose Change 03/17/2025 9:21 AM EST0.5 mcg/kg/hr10.8 mL/hrRate/Dose Uicdze9703/17/2025 8:42 AM EST0.3 mcg/kg/hr6.5 mL/hr DULoxetine (CYMBALTA) DR capsule 20 mg 20 mg, oral, Daily, First dose on Fri03/16/25 at 0900, Look-alike/sound-alike medication - verify indication for use. Swallow whole-do not crush or chew. Although the door technician does not recommend opening the capsule, the contents of capsule may be sprinkled on applesauce or in apple juice and swallowed (without chewing) immediately; do not sprinkle contents on chocolate pudding. Given03/24/2025 8:59 AM EST20 joIutlr2403/23/2025 9:59 AM EST20 zjImmbb9403/22/2025 8:33 AM EST20 mg ferrous sulfate tablet 325 mg 325 mg, nasogastric, Daily with breakfast, First dose on Fri03/16/25 at 1000, Give ferrous sulfate 2 hours before or 4 hours after antacids. Given03/24/2025 8:53 AM LFD623 rmYzbrg7603/23/2025 9:59 AM CSL300 mgGiven 03/22/2025 8:34 AM QHL168 mg gabapentin (NEURONTIN) capsule 100 mg 100 mg, oral, 3 times daily, First dose on Fri03/16/25 at 0700, Look-alike/sound-alike medication -verify indication for use. Given03/24/2025 10:08 PM OZX386 dePifzp5603/24/2025 4:48 PM JSO911 mgGiven 03/24/2025 5:16 AM DKI178 mg ipratropium-albuteroL (DUONEB) 0.5 mg-3 mg(2.5 mg base)/3 mL nebulizer solution 3 mL 3 mL, nebulization, Every 6 hours PRN, wheezing, shortness of breath, Starting on Fri03/16/25 at 0721, Implement INPATIENT/ED Bronchodilator Clinical Practice Guidelines? Yes ipratropium-albuteroL (DUONEB) 0.5 mg-3 mg(2.5 mg base)/3 mL nebulizer solution 3 mL 3 mL, nebulization, Every 6 hours, First dose on Fri03/18/25 at 0830, Implement INPATIENT/ED Bronchodilator Clinical Practice Guidelines? Yes Given03/24/2025 9:51 AM EST3 bSRcsur0803/24/2025 2:27 AM EST3 vXMbwdz8303/23/2025 8:08 PM EST3 mL ipratropium-albuteroL (DUONEB) 0.5 mg-3 mg(2.5 mg base)/3 mL nebulizer solution 3 mL 3 mL, nebulization, Every 6 hours while awake, First dose (after last modification) on Ayanna 03/24/25at 1400, Implement INPATIENT/ED Bronchodilator Clinical Practice Guidelines? Yes Given03/24/2025 9:02 PM EST3 mL LORazepam (ATIVAN) tablet 0.5 mg 0.5 mg, oral, Once, On 03/20/25 at 2030, For 1 dose, Look-alike/sound-alike medication - verify indication for use. Given03/20/2025 8:44 PM EST0.5 mg magnesium sulfate IVPB 2000 mg/50 mL in iso-osmotic water (40 mg/mL premix) 2,000 mg, intravenous, at 25 mL/hr, Administer over 120 Minutes, As needed, for magnesium level 1.7to 1.9 mg/dL or ionized magnesium level 0.45 to 0.5 mmol/L, Starting on Fri03/16/25 at 0646, Use premix solution. Default to ionized magnesium level in cases where patient has both magnesium and ionized magnesium results. If administered, check ionized magnesium (or total magnesium if ionized magnesium unavailable) level 4 hours after infusion. Rate/Dose Yocrif8803/17/2025 6:44 AM EST25 mL/hrRate/Dose Llqcld1503/17/2025 6:39 AM EST25 mL/hrRate/Dose Shcmdt6603/17/2025 5:46 AM EST25 mL/hr melatonin (CIRCADIN) tablet 5 mg 5 mg, oral, Nightly PRN, insomina, Starting on Fri03/23/25 at 1257 Given03/24/2025 10:02 PM EST5 okFgfak6603/23/2025 9:32 PM EST5 mg meropenem (MERREM) 500 mg in sodium chloride 0.9 % 50 mL IVPB W/ADAPTER 500 mg, intravenous, at 100 mL/hr, Administer over 0.5 Hours, Once, On Fri03/16/25 at 1615, For 1 dose, For Vial-2-Bag: Attach bag and vial to adapter - Use immediately after activating; dissolve drug prior to administration., Approved Indication: ESBL organism, Authorizing Service: Critical Care consult has been placed, I acknowledge that an appropriate consult is REQUIRED to use this drug at [facility], [facility] and [facility] per [facility]-approved policy # MM 1.15: Yes New Bag03/16/2025 5:57 PM IQH091 mg100 mL/hr meropenem (MERREM) 500 mg in sodium chloride 0.9 % 50 mL IVPB W/ADAPTER 500 mg, intravenous, at 16.7 mL/hr, Administer over 3 Hours, Every 24 hours, First dose on Aaynna 03/17/25 at 1615, For Vial-2-Bag: Attach bag and vial to adapter - Use immediately after activating; dissolve drug prior to administration., Approved Indication: ESBL organism, Authorizing Service: Critical Care consult has been placed, I acknowledge that an appropriate consult is REQUIRED to use this drug at [facility], [facility] and [facility] per [facility]-approved policy # MM 1.15: Yes Rate/Dose Ntbumo7103/17/2025 7:03 PM EST16.7 mL/hrNew Bag03/17/2025 4:33 PM YPY571 mg16.7 mL/hr meropenem (MERREM) 500 mg in sodium chloride 0.9 % 50 mL IVPB W/ADAPTER 500 mg, intravenous, at 16.7 mL/hr, Administer over 3 Hours, Every 24 hours, First dose on Fri03/18/25 at 1900, For Vial-2-Bag: Attach bag and vial to adapter - Use immediately after activating; dissolve drug prior to administration., Approved Indication: ESBL organism, Authorizing Service: Critical Care consult has been placed, I acknowledge that an appropriate consult is REQUIRED to use this drug at [facility], [facility] and [facility] per [facility]-approved policy # MM 1.15: Yes Klvbxefsp90/05/2025 8:43 PM EST16.7 mL/hrRate/Dose Bixgnt2403/18/2025 8:11 PM EST 16.7 mL/hrNew Bag03/18/2025 6:26 PM WFV989 mg16.7 mL/hr meropenem (MERREM) 500 mg in sodium chloride 0.9 % 50 mL IVPB W/ADAPTER 500 mg, intravenous, at 100 mL/hr, Administer over 0.5 Hours, Once, On Fri03/19/25 at 1400, For 1 dose, For Vial-2-Bag: Attach bag and vial to adapter - Use immediately after activating; dissolve drug prior to administration., Approved Indication: ESBL organism, Authorizing Service: ID consult has been placed, I acknowledge that an appropriate consult is REQUIRED to use this drug at [facility], [facility] and [facility] per [facility]-approved policy # MM 1.15: Yes New Bag03/19/2025 2:25 PM [id number] mg100 mL/hr meropenem (MERREM) 500 mg in sodium chloride 0.9 % 50 mL IVPB W/ADAPTER 500 mg, intravenous, at 16.7 mL/hr, Administer over 3 Hours, Every 24 hours, First dose on Fri03/20/25 at 1600, To be given after hemodialysis on dialysis days. For Vial-2-Bag: Attach bag and vial toadapter - Use immediately after activating; dissolve drug prior to administration., Approved Indication: ESBL organism, Authorizing Service: ID consult has been placed, I acknowledge that an appropriate consult is REQUIRED to use this drug at [facility], [facility] and [facility] per [facility]-approved policy # MM 1.15: Yes New Bag03/23/2025 3:40 PM [id number] mg16.7 mL/hrNew Bag03/22/2025 4:55 PM QXU342 mg 16.7 mL/hrNew Bag03/21/2025 3:59 PM EXK863 mg16.7 mL/hr metoprolol succinate XL (TOPROL XL) 24 hr tablet 12.5 mg 12.5 mg, oral, Daily, First dose on Fri03/21/25 at 1745, Look-alike/sound-alike medication - verifyindication for use. Do not crush or chew. Given03/22/2025 8:34 AM EST12.5 xyUyemm2203/21/2025 5:57 PM EST12.5 mg metoprolol succinate XL (TOPROL XL) 24 hr tablet 12.5 mg 12.5 mg, oral, 2 times daily, First dose (after last modification) on Fri03/22/25 at 2100, Hold if HR is less than 55 Look-alike/sound-alike medication - verify indication for use. Do not crush or chew. Given03/24/2025 10:06 PM EST12.5 izMytgw3003/24/2025 8:51 AM EST12.5 mgGiven 03/23/2025 9:30 PM EST12.5 mg midodrine (PROAMATINE) tablet 10 mg 10 mg, oral, 3 times daily, First dose on Fri03/18/25 at 0815, Look-alike/sound-alike medication - verify indication for use. Given03/21/2025 6:06 AM EST10 rgHtagd3803/20/2025 8:44 PM EST10 hzUrdfv2603/20/2025 2:35 PM EST10 mg midodrine (PROAMATINE) tablet 5 mg 5 mg, oral, 3 times daily, First dose (after last modification) on Fri03/21/25 at 2200, Look-alike/sound-alike medication - verify indication for use. Given03/22/2025 5:52 AM EST5 mg midodrine (PROAMATINE) tablet 5 mg 5 mg, oral, As needed, For dialysis, Starting on Fri03/22/25 at 1245, Look-alike/sound-alike medication - verify indication for use. norepinephrine (LEVOPHED) infusion 8 mg/250 mL in sod chlor 0.9% (0.032 mg/mL PMX) 0.01-0.4 mcg/kg/min ?? 83 kg (1.5563-62.25 mL/hr, rounded to 1.6-62.3 mL/hr), intravenous, Continuous, Starting on Fri03/16/25 at 0541, Preferred central line administration. Doses greater than 0.4 mcg/kg/min are rarely useful. Max 1 mcg/kg/min with provider order. Notify prescriber if rate exceeds0.2 mcg/kg/min. VESICANT (RED) Requires Smart Pump., Monitoring Goals: MAP, Monitoring Goal Direction: Greater than or Equal to, Please specify: 65, Starting Dose (range 0.01 to 0.1 mcg/kg/min): 0.04 mcg/kg/min, Titration Dose Range (range 0.01 to 0.05 mcg/kg/min): 0.01 to 0.05 mcg/kg/min, Titration Frequency - As Frequent As (range 1 to 3 minutes): 3 minutes, Indication: Hypotension, Sequence of Pressors - Use this medication: First, Wean Sequence: Wean Second Rate/Dose Tgfubq3603/16/2025 9:07 PM EST0.02 mcg/kg/min3.1 mL/hrRate/Dose Change 03/16/2025 8:28 PM EST0.02 mcg/kg/min3.1 mL/hrRate/Dose Suxiaf7603/16/2025 8:03 PM EST0.04 mcg/kg/min6.2 mL/hr norepinephrine (LEVOPHED) infusion 8 mg/250 mL in sod chlor 0.9% (0.032 mg/mL PMX) 0.01-0.2 mcg/kg/min ?? 83.6 kg (1.5675-31.35 mL/hr, rounded to 1.6-31.4 mL/hr), intravenous, Continuous, Starting on Fri03/18/25 at 0000, Preferred central line administration. Doses greater than 0.4mcg/kg/min are rarely useful. Max 1 mcg/kg/min with provider order. Notify prescriber if rate exceeds 0.2 mcg/kg/min. VESICANT (RED) Requires Smart Pump., Monitoring Goals: MAP, Monitoring Goal Direction: Greater than or Equal to, Please specify: MAP> 65, Starting Dose (range 0.01 to 0.1 mcg/kg/min): 0.01 mcg/kg/min, Titration Dose Range (range 0.01 to 0.05 mcg/kg/min): 0.01 to 0.05 mcg/kg/min, Titration Frequency - As Frequent As (range 1 to 3 minutes): 2 minutes, Indication: Hypotension, Sequence of Pressors - Use this medication: First, Wean Sequence: Wean First Rate/Dose Itsumd9703/18/2025 7:00 AM EST0.04 mcg/kg/min6.3 mL/hrRate/Dose Verify 03/18/2025 6:37 AM EST0.04 mcg/kg/min6.3 mL/hrRate/Dose Zdpwfc6003/18/2025 6:24 AM EST0.04 mcg/kg/min6.3 mL/hr OLANZapine (ZyPREXA) injection 2.5 mg 2.5 mg, intramuscular, Once, On Fri03/17/25 at 1345, For 1 dose, Reconstitute vial with 2.1 mL of SWFI. Resulting solution is 5 mg/mL. Look-alike/sound-alike medication - verify indication for use. Given03/17/2025 2:30 PM EST2.5 mgLeft Deltoid oxyCODONE (ROXICODONE) immediate release tablet 10 mg 10 mg, oral, Every 4 hours PRN, severe pain - pain scale 7-10, Starting on Fri03/23/25 at 0312, Look-alike/sound-alike medication - verify indication for use. Immediate release. oxyCODONE (ROXICODONE) immediate release tablet 5 mg 5 mg, oral, Every 4 hours PRN, moderate pain - pain scale 4-6, Starting on Fri03/23/25 at 0312, Look-alike/sound-alike medication - verify indication for use. Immediate release. Given03/24/2025 10:25 PM EST5 xqXztyi7703/23/2025 9:33 PM EST5 jgOvorx2503/23/2025 3:31 AM EST5 mg pantoprazole (PROTONIX) EC tablet 40 mg 40 mg, oral, Every morning before breakfast, First dose on Fri03/16/25 at 0700, Look-alike/sound-alike medication - verify indication for use. If patient is receiving enteral feeding, consider alternative PPI or continue IV pantoprazole until the delayed-release tablet can be taken orally, Indication: GERD Given03/22/2025 5:51 AM EST40 smBsafo4903/21/2025 6:06 AM EST40 lxOamyv3303/20/2025 5:59 AM EST40 mg pantoprazole (PROTONIX) injection 40 mg 40 mg, intravenous, Every 12 hours, First dose on Fri03/22/25 at 2100, Look-alike/sound-alike medication - verify indication for use., Indication: Upper GI bleed Given03/24/2025 9:00 AM EST40 ukAgznj2003/23/2025 9:34 PM EST40 fjPhbca7603/23/2025 10:00 AM EST40 mg potassium chloride IVPB 10 mEq/50 mL in water (0.2 mEq/mL premix) 10 mEq, intravenous, at 50 mL/hr, Administer over 1 Hours, As needed, for potassium replacement, Starting on Fri03/16/25 at 0646, Administer Potassium Chloride IVPB in 10 mEq increments. Maximum infusion rates: Central Line = 20 mEq/hour. Administer via Central Line Only. If dose administered, recheck potassium level 1 hour after infusion complete. For potassium level 3.4 to 3.8 mmol/L and Serum Creatinine 1.2 or less = 30 mEq For potassium level 3.1 to 3.3 mmol/L and Serum Creatinine 1.2 or less = 40 mEq For potassium level 3 mmol/L or less and Serum Creatinine 1.2 or less = 50 mEq For potassium level 3.4 to 3.8 mmol/L and Serum Creatinine greater than 1.2 = 20 mEq For potassium level 3.1 to 3.3 mmol/L and Serum Creatinine greater than 1.2 = 30 mEq For potassium level 3 mmol/L or less and Serum Creatinine greater than 1.2 = 40 mEq VESICANT (YELLOW) Rate/Dose Czvnom3103/17/2025 4:17 AM GMS909 mL/hrNew Bag03/17/2025 4:12 AM EST10 oJr607 mL/hrNew Bag03/17/2025 3:28 AM EST10 kBr645 mL/hr risperiDONE (RisperDAL) tablet 3 mg 3 mg, oral, Nightly, First dose on Ayanna 03/17/25 at 2200, Look-alike/sound-alike medication - verify indication for use. Given03/24/2025 10:08 PM EST3 fuIgpme6803/23/2025 9:29 PM EST3 ikMpdcl5203/22/2025 9:39 PM EST3 mg rivastigmine (EXELON) 4.6 mg/24 hour 1 patch 1 patch, transdermal, Administer over 24 Hours, Daily, First dose on Fri03/16/25 at 1000, Remove previous patch, if present, before applying new. Medication Zsylvfa4303/24/2025 9:00 AM EST1 patchRight ArmMedication Applied 03/23/2025 9:00 AM EST1 patchLeft ArmMedication Yftlzit5103/22/2025 8:34 AM EST1 patchRight Arm sodium chloride 0.9 % bolus 500 mL, intravenous, at 2,000 mL/hr, Administer over 15 Minutes, Once in dialysis, On Ayanna 03/24/25 at 1515, For 1 dose, Notify distribution analyst if ineffective after total of 1000mL administered. New Bag03/24/2025 3:16 PM [id number] mL/hr sodium chloride 0.9 % flush 10 mL 10 mL, intravenous, As needed, line care, Starting on Fri03/16/25 at 0652, Short-term Central Line.IVP to lumens before and after each use. sodium chloride 0.9 % flush 10 mL 10 mL, intravenous, Every 96 hours, First dose on Fri03/16/25 at 1415, Hemodialysis, Arterial Lumen. Aspirate lumen and discard volume THEN 0.9% Sodium Chloride 10 mL IVP THEN 4% sodium citrate (0.2 grams/5 mL) IVP equal to lumen volume every 96 hours. (Direct Care RN: flush and change caps every 96 hours) sodium chloride 0.9 % flush 10 mL 10 mL, intravenous, Every 96 hours, First dose on Fri03/16/25 at 1415, Hemodialysis, Venous Lumen. Aspirate lumen and discard volume THEN 0.9% Sodium Chloride 10 mL IVP THEN 4% sodium citrate (0.2 grams/5 mL) IVP equal to lumen volume every 96 hours. (Direct Care RN: Flush and change caps every 96 hours) Given03/24/2025 4:49 PM EST10 pAJzjkk0503/20/2025 2:36 PM EST10 mL sodium chloride 0.9 % flush 10 mL 10 mL, intravenous, As needed, line care, Starting on Fri03/16/25 at 1427, Arterial Lumen. Before use aspirate lumen and discard lumen volume THEN 0.9% Sodium Chloride 10 mL IVP. (promotion officer: flush at beginning of each hemodialysis treatment). Given03/24/2025 1:30 PM EST10 mSFdrfv3203/21/2025 12:38 PM EST10 zYZolnq1203/18/2025 8:47 AM EST10 mL sodium chloride 0.9 % flush 10 mL 10 mL, intravenous, As needed, line care, Starting on Fri03/16/25 at 1427, Arterial Lumen. 0.9% Sodium Chloride 10 mL IVP THEN 4% sodium citrate (0.2 grams/5 mL) IVP equal to lumen volume after use. (promotion officer: flush and change caps after each hemodialysis treatment) Given03/24/2025 3:16 PM EST10 rKHdryq0003/18/2025 10:57 AM EST10 qEYwkhz7103/16/2025 4:56 PM EST10 mL sodium chloride 0.9 % flush 10 mL 10 mL, intravenous, As needed, line care, Starting on Fri03/16/25 at 1427, Venous Lumen. Before useaspirate lumen and discard lumen volume THEN 0.9% Sodium Chloride 10 mL IVP. (promotion officer: flush at beginning of each hemodialysis treatment) Given03/24/2025 1:30 PM EST10 qXKpbsj1603/21/2025 12:38 PM EST10 zTRoshk7303/18/2025 8:47 AM EST10 mL sodium chloride 0.9 % flush 10 mL 10 mL, intravenous, As needed, line care, Starting on Fri03/16/25 at 1427, Venous Lumen. 0.9% Sodium Chloride 10 mL IVP THEN 4% sodium citrate (0.2 grams/5 mL) IVP equal to lumen volume after use. (promotion officer: flush and change caps after each hemodialysis treatment) Given03/24/2025 3:15 PM EST10 uXSazft5903/18/2025 10:57 AM EST10 gYPemuz9703/16/2025 4:55 PM EST10 mL sodium chloride 0.9 % flush 20 mL 20 mL, intravenous, As needed, line care, Starting on Fri03/16/25 at 0652, Short-term Central Line.IVP to lumens after lab draws, blood infusion, and meds known to precipitate. sodium chloride 0.9 % flush 30 mL 30 mL, intravenous, Every 8 hours, First dose on Fri03/16/25 at 0700, Short-term Central Line. IVP to lumens. Given03/24/2025 9:01 AM EST30 oCOgocj7903/23/2025 11:05 PM EST30 nOEmodk5803/23/2025 3:35 PM EST30 mL sodium citrate 4 % (3 mL) flush 1.6 mL 1.6 mL, intravenous, Every 96 hours, First dose (after last modification) on Fri03/20/25 at 1415, Hemodialysis, Arterial Lumen. IVP equal to lumen volume, up to a maximum of 2 mL, every 96 hours. (Direct Care RN: flush and change caps every 96 hours) sodium citrate 4 % (3 mL) flush 1.6 mL 1.6 mL, intravenous, Every 96 hours, First dose (after last modification) on Fri03/20/25 at 1415, Hemodialysis, Venous Lumen. IVP equal to lumen volume, up to a maximum of 2 mL, every 96 hours. (Direct Care RN: flush and change caps every 96 hours) sodium citrate 4 % (3 mL) flush 1.6 mL 1.6 mL, intravenous, As needed, line care, Starting on Fri03/16/25 at 1427, Hemodialysis, Arterial Lumen. IVP equal to lumen volume, up to a maximum of 2 mL, after use. (promotion officer: flush and change caps after each hemodialysis treatment) Given03/24/2025 3:18 PM EST1.6 iUXabpv2003/21/2025 2:00 PM EST1.6 mLGiven 03/18/2025 10:57 AM EST1.6 mL sodium citrate 4 % (3 mL) flush 1.6 mL 1.6 mL, intravenous, As needed, line care, Starting on Fri03/16/25 at 1427, Hemodialysis, Venous Lumen. IVP equal to lumen volume, up to a maximum of 2 mL, after use. (promotion officer: flush and change caps after each hemodialysis treatment) Given03/24/2025 3:17 PM EST1.6 yXNklie1003/21/2025 2:00 PM EST1.6 mLGiven 03/18/2025 10:57 AM EST1.6 mL sodium phosphate 20 mmol in sodium chloride 0.9 % 100 mL IVPB 20 mmol, intravenous, at 26.7 mL/hr, Administer over 4 Hours, As needed, for phosphorous level 2.3 mg/dL or less, Starting on Fri03/16/25 at 0646, Administer over 4 hours via dedicated line(central line). If administered, recheck phosphorus level 4 hours after infusion complete. Infuse using central line access. sodium phosphate 20 mmol in sodium chloride 0.9 % 250 mL IVPB 20 mmol, intravenous, at 42.8 mL/hr, Administer over 6 Hours, As needed, for phosphorous level 2.3 mg/dL or less, Starting on Fri03/16/25 at 0646, Administer over 6 hours via dedicated line (peripheral line). If administered, recheck phosphorus level 4 hours after infusion complete. tamsulosin (FLOMAX) 24 hr capsule 0.4 mg 0.4 mg, oral, Daily, First dose on 03/19/25 at 1030, Do not crush or chew. Given03/24/2025 8:51 AM EST0.4 mnGvews7803/23/2025 9:59 AM EST0.4 mgGiven 03/22/2025 8:33 AM EST0.4 mg topiramate (TOPAMAX) tablet 200 mg 200 mg, nasogastric, 2 times daily, First dose on Fri03/16/25 at 1000, Look-alike/sound-alike medication - verify indication for use. Given03/24/2025 10:06 PM QVE507 yyGukkv9203/24/2025 8:53 AM RXW958 mgGiven 03/23/2025 9:29 PM NHS934 mg vancomycin (VANCOCIN) 750 mg in sodium chloride 0.9 % 250 mL IVPB W/ADAPTER 750 mg, intravenous, at 250 mL/hr, Administer over 60 Minutes, As needed, Give after hemodialysis, Starting on Fri03/16/25 at 1148, Hemodialysis, For Vial-2-Bag: Attach bag and vial to adapter - Use immediately after activating; dissolve drug prior to administration., Indication: Hospital-acquired pneumonia New Bag03/16/2025 3:58 PM [id number] mg250 mL/hrdocumented in this encounter Active and Recently Administered Medications Times are shown in EST.Medication Order/ amiodarone (PACERONE) tablet 200 mg 200 mg, oral, Daily, First dose on Fri03/19/25 at 1045, Look-alike/sound-alike medication - verify indication for use. * 0959 (Given - Provider: Mahsa Estrada RN) * 0853 (Given - Provider: Rosana Lemus, MISTY) apixaban (ELIQUIS) tablet 5 mg 5 mg, oral, 2 times daily, First dose on Fri03/23/25 at 2100, Indication: Nonvalvular Atrial Fibrillation (NVAF) * 2131 (Given - Provider: Rylee Baez RN) * 0851 (Given - Provider: Rosana Lemus, MISTY) * 2207 (Given - Provider: Rylee Baez, MISTY) ARIPiprazole (ABILIFY) tablet 10 mg 10 mg, oral, Daily, First dose on Fri03/16/25 at 0900, Look-alike/sound-alike medication - verify indication for use. * 1000 (Given - Provider: Mahsa Estrada RN) * 0900 (Given - Provider: Rosana Lemus, MISTY) aspirin chewable tablet 81 mg 81 mg, nasogastric, Daily, First dose on Fri03/16/25 at 1000 * 0959 (Given - Provider: Mahsa Estrada RN) * 0853 (Given - Provider: Rosana Lmeus, RN) budesonide (PULMICORT) nebulizer solution 0.5 mg 0.5 mg, nebulization, Every 12 hours, First dose on Fri03/18/25 at 0900, Rinse mouth after use. * 0844 (Given - Provider: Jonathon Benedict RCP) * 2007 (Given - Provider: Patricia Brizuela LCPC) * 0952 (Given - Provider: Trang Salvador RCP) * 210 (Given - Provider: Jozef Mcnair RCP) busPIRone (BUSPAR) tablet 15 mg 15 mg, nasogastric, 3 times daily, First dose on Fri03/16/25 at 1400, Look-alike/sound-alike medication - verify indication for use. Avoid grapefruit juice. * 0529 (Given - Provider: Sally Bruce RN) * 1235 (Given - Provider: Parrish Fallon RN - Comment: patient have cognitive issues refusing earlier - medication mix with his food) * 2132 (Given - Provider: Rylee Baez RN) * 0516 (Given - Provider: Rylee Baez RN) * 1648 (Given - Provider: Rosana Lemus, MISTY) * 2205 (Given - Provider: Rylee Baez RN) cholecalciferol (vitamin D3) tablet 1,000 Units 1,000 Units, nasogastric, Daily, First dose on Fri03/16/25 at 1000 * 0959 (Given - Provider: Mahsa Estrada RN) * 0852 (Given - Provider: Rosana Lemus, MISTY) cyanocobalamin tablet 1,000 mcg 1,000 mcg, nasogastric, Daily, First dose on Fri03/16/25 at 1000 * 1000 (Given - Provider: Mahsa Estrada RN) * 0851 (Given - Provider: Rosana Lemus, MISTY) darbepoetin sylwia-polysorbate (ARANESP) injection 60 mcg 60 mcg, subcutaneous, Weekly, First dose on Fri03/16/25 at 1330, Hemodialysis, Do not administer ifthe patient's hemoglobin is greater than 12 g/dl., Indications: ESRD on Dialysis * 0900 (Due) DULoxetine (CYMBALTA) DR capsule 20 mg 20 mg, oral, Daily, First dose on Fri03/16/25 at 0900, Look-alike/sound-alike medication - verify indication for use. Swallow whole-do not crush or chew. Although the door technician does not recommend opening the capsule, the contents of capsule may be sprinkled on applesauce or in apple juice and swallowed (without chewing) immediately; do not sprinkle contents on chocolate pudding. * 0959 (Given - Provider: Mahsa Estrada RN) * 0859 (Given - Provider: Rosana Lemus, MISTY) ferrous sulfate tablet 325 mg 325 mg, nasogastric, Daily with breakfast, First dose on Fri03/16/25 at 1000, Give ferrous sulfate 2 hours before or 4 hours after antacids. * 0959 (Given - Provider: Mahsa Estrada RN) * 0853 (Given - Provider: Rosana Lemus, MISTY) gabapentin (NEURONTIN) capsule 100 mg 100 mg, oral, 3 times daily, First dose on Fri03/16/25 at 0700, Look-alike/sound-alike medication -verify indication for use. * 0529 (Given - Provider: Sally Bruce RN) * 1236 (Given - Provider: Parrish Fallon RN - Comment: patient have cognitive issues refusing earlier - medication mix with his food) * 2129 (Given - Provider: Rylee Baez RN) * 0516 (Given - Provider: Rylee Baez RN) * 1648 (Given - Provider: Rosana Lemus, MISTY) * 2208 (Given - Provider: Rylee Baez RN) ipratropium-albuteroL (DUONEB) 0.5 mg-3 mg(2.5 mg base)/3 mL nebulizer solution 3 mL (CANCELED) 3 mL, nebulization, Every 6 hours, First dose on Fri03/18/25 at 0830, Implement INPATIENT/ED Bronchodilator Clinical Practice Guidelines? Yes * 0306 (Given - Provider: Magaly Sanders RCP) * 0844 (Given - Provider: Jonathon Benedict RCP) * 1309 (Given - Provider: Jonathon Benedict RCP) * 2007 (Given - Provider: Patricia Brizuela RCP) * 0227 (Given - Provider: Patricia Brizuela RCP) * 0951 (Given - Provider: Trang Salvador RCP) ipratropium-albuteroL (DUONEB) 0.5 mg-3 mg(2.5 mg base)/3 mL nebulizer solution 3 mL 3 mL, nebulization, Every 6 hours while awake, First dose (after last modification) on Ayanna 03/24/25at 1400, Implement INPATIENT/ED Bronchodilator Clinical Practice Guidelines? Yes * 1400 (Not Given - Provider: Trang Salvador RCP - Reason: Patient not available) * 2101 (Given - Provider: Jozef Mcnair RCP) meropenem (MERREM) 500 mg in sodium chloride 0.9 % 50 mL IVPB W/ADAPTER (CANCELED)(Linked Group 1) 500 mg, intravenous, at 16.7 mL/hr, Administer over 3 Hours, Every 24 hours, First dose on Fri03/20/25 at 1600, To be given after hemodialysis on dialysis days. For Vial-2-Bag: Attach bag and vial toadapter - Use immediately after activating; dissolve drug prior to administration., Approved Indication: ESBL organism, Authorizing Service: ID consult has been placed, I acknowledge that an appropriate consult is REQUIRED to use this drug at [facility], [facility] and [facility] per [facility]-approved policy # MM 1.15: Yes * 1540 (New Bag - Provider: Parrish Fallon RN) * 1840 (Stop Bag - Provider: Parrish Fallon RN) metoprolol succinate XL (TOPROL XL) 24 hr tablet 12.5 mg 12.5 mg, oral, 2 times daily, First dose (after last modification) on Fri03/22/25 at 2100, Hold if HR is less than 55 Look-alike/sound-alike medication - verify indication for use. Do not crush or chew. * 0959 (Given - Provider: Mahsa Estrada RN) * 2129 (Given - Provider: Rylee Baez RN) * 0851 (Given - Provider: Rosana Lemus RN) * 2205 (Given - Provider: Rylee Baez RN) pantoprazole (PROTONIX) injection 40 mg 40 mg, intravenous, Every 12 hours, First dose on Fri03/22/25 at 2100, Look-alike/sound-alike medication - verify indication for use., Indication: Upper GI bleed * 1000 (Given - Provider: Mahsa Estrada RN) * 2134 (Given - Provider: Rylee Baez RN) * 0900 (Given - Provider: Rosana Lemus, RN) * 2100 (Not Given - Provider: Rylee Baez RN - Reason: Loss of IV access - Comment: PATIENT SUPPOSED TO BE DISCHARGED IV REMOVED Prior to shift) risperiDONE (RisperDAL) tablet 3 mg 3 mg, oral, Nightly, First dose on Fri03/17/25 at 2200, Look-alike/sound-alike medication - verify indication for use. * 9 (Given - Provider: Rylee Baez RN) * 2208 (Given - Provider: Rylee Baez RN) rivastigmine (EXELON) 4.6 mg/24 hour 1 patch 1 patch, transdermal, Administer over 24 Hours, Daily, First dose on Fri03/16/25 at 1000, Remove previous patch, if present, before applying new. * 0834 (Medication Removed - Provider: Mahsa Estrada RN) * 0900 (Medication Applied - Provider: Mahsa Estrada RN) * 0859 (Medication Removed - Provider: Rosana Lemus, RN) * 0900 (Medication Applied - Provider: Rosana Lemus, MISTY) * 0120 (Due: Medication Removed - Provider: Automatic Discharge Provider - Comment: Time automatically adjusted from order being discontinued) sodium chloride 0.9 % bolus (COMPLETED) 500 mL, intravenous, at 2,000 mL/hr, Administer over 15 Minutes, Once in dialysis, On Fri03/24/25 at 1515, For 1 dose, Notify distribution analyst if ineffective after total of 1000mL administered. * 1516 (New Bag - Provider: Summer Rosenbaum, MISTY) * 1531 (Stop Bag - Provider: Summer Rosenbaum, MISTY) sodium chloride 0.9 % flush 10 mL 10 mL, intravenous, Every 96 hours, First dose on Fri03/16/25 at 1415, Hemodialysis, Arterial Lumen. Aspirate lumen and discard volume THEN 0.9% Sodium Chloride 10 mL IVP THEN 4% sodium citrate (0.2 grams/5 mL) IVP equal to lumen volume every 96 hours. (Direct Care RN: flush and change caps every 96 hours) * 1415 (Canceled Entry - Provider: Rosana Lemus RN - Comment: HD order) sodium chloride 0.9 % flush 10 mL 10 mL, intravenous, Every 96 hours, First dose on Fri03/16/25 at 1415, Hemodialysis, Venous Lumen. Aspirate lumen and discard volume THEN 0.9% Sodium Chloride 10 mL IVP THEN 4% sodium citrate (0.2 grams/5 mL) IVP equal to lumen volume every 96 hours. (Direct Care RN: Flush and change caps every 96 hours) * 1649 (Given - Provider: Rosana Lemus RN) sodium chloride 0.9 % flush 30 mL(Linked Group 2) 30 mL, intravenous, Every 8 hours, First dose on Fri03/16/25 at 0700, Short-term Central Line. IVP to lumens. * 0245 (Given - Provider: Sally Bruce RN) * 0700 (Not Given - Provider: Parrish Fallon RN - Reason: Patient/family refused) * 1535 (Given - Provider: Parrish Fallon, RN) * 2305 (Given - Provider: Rylee Baez RN) * 0901 (Given - Provider: Rosana Lemus RN) * 1500 (Canceled Entry - Provider: Rosana Lemus RN - Comment: duplicate) * 2300 (Not Given - Provider: Rylee Baez RN - Reason: Loss of IV access) sodium citrate 4 % (3 mL) flush 1.6 mL 1.6 mL, intravenous, Every 96 hours, First dose (after last modification) on Fri03/20/25 at 1415, Hemodialysis, Arterial Lumen. IVP equal to lumen volume, up to a maximum of 2 mL, every 96 hours. (Direct Care RN: flush and change caps every 96 hours) * 1415 (Due) sodium citrate 4 % (3 mL) flush 1.6 mL 1.6 mL, intravenous, Every 96 hours, First dose (after last modification) on Fri03/20/25 at 1415, Hemodialysis, Venous Lumen. IVP equal to lumen volume, up to a maximum of 2 mL, every 96 hours. (Direct Care RN: flush and change caps every 96 hours) * 1415 (Due) tamsulosin (FLOMAX) 24 hr capsule 0.4 mg 0.4 mg, oral, Daily, First dose on Fri03/19/25 at 1030, Do not crush or chew. * 0959 (Given - Provider: Mahsa Estrada, RN) * 0851 (Given - Provider: Rosana Lemus, RN) topiramate (TOPAMAX) tablet 200 mg 200 mg, nasogastric, 2 times daily, First dose on Fri03/16/25 at 1000, Look-alike/sound-alike medication - verify indication for use. * 0959 (Given - Provider: Mahsa Estrada, RN) * 2129 (Given - Provider: Rylee Baez, RN) * 0853 (Given - Provider: Rosana Lemus, RN) * 2206 (Given - Provider: Rylee Baez, MISTY) Medication Order/03/2025 acetaminophen (TYLENOL) tablet 650 mg 650 mg, oral, Every 6 hours PRN, mild pain - pain scale 1-3, headaches, temperature greater than 38C, Starting on Fri03/17/25 at 2115 * 0244 (Given - Provider: Sally Bruce, MISTY) * 1542 (Given - Provider: Parrish Fallon, MISTY) * 0516 (Given - Provider: Rylee Baez RN) barium sulfate (VARIBAR NECTAR) 40 % (w/v) suspension 10 mL (COMPLETED) 10 mL, oral, Once in imaging, contrast, barium sulfate (VARIBAR NECTAR) 40 % (w/v) suspension, Starting on Fri03/24/25 at 1043, For 1 dose * 1048 (Given - Provider: NEV[facility]SA[facility]) barium sulfate (VARIBAR PUDDING) 40 % (w/v), 30% (w/w) oral paste 60 mL (COMPLETED) 60 mL, oral, Once in imaging, contrast, barium sulfate (VARIBAR PUDDING) 40 % (w/v), 30% (w/w) oralpaste, Starting on Fri03/24/25 at 1042, For 1 dose * 1048 (Given - Provider: CHARLES Alcocer) barium sulfate (VARIBAR THIN HONEY) 40 %(w/v), 29% (w/w)(1500 CPS) suspension 20 mL (COMPLETED) 20 mL, oral, Once in imaging, contrast, Radiology, Starting on Fri03/24/25 at 1043, For 1 dose * 1048 (Given - Provider: Magaly Lemus [facility]) barium sulfate (VARIBAR THIN) 81 % (w/w) powder 148 g (COMPLETED) 148 g, oral, Once in imaging, contrast, barium sulfate (VARIBAR THIN) 40 % (w/v) powder, Starting on Fri03/24/25 at 1043, For 1 dose * 1048 (Given - Provider: Magaly Lemus [facility] CENTERShashiPROPRIETARY TRADER) calcium gluconate IVPB 1000 mg/50 mL (20 mg/mL premix)(Linked Group 3) 1,000 mg, intravenous, at 50 mL/hr, Administer over 60 Minutes, As needed, for ionized calcium level 3.5 to 4.4 mg/dL, Starting on Fri03/16/25 at 0646, Recheck ionized calcium 6 hours after infusion.Hold calcium replacement for phosphorus greater than 5.5 mg/dL. VESICANT (RED) calcium gluconate IVPB 2000 mg/100 mL (20 mg/mL premix)(Linked Group 3) 2,000 mg, intravenous, at 100 mL/hr, Administer over 60 Minutes, As needed, for ionized calcium level 3 to 3.4 mg/dL, Starting on Fri03/16/25 at 0646, Recheck ionized calcium 6 hours after infusion. Hold calcium replacement for phosphorus greater than 5.5 mg/dL. VESICANT (RED) ipratropium-albuteroL (DUONEB) 0.5 mg-3 mg(2.5 mg base)/3 mL nebulizer solution 3 mL 3 mL, nebulization, Every 6 hours PRN, wheezing, shortness of breath, Starting on Fri03/16/25 at 0721, Implement INPATIENT/ED Bronchodilator Clinical Practice Guidelines? Yes * 1228 (Not Given - Provider: Trang Salvador RCP - Reason: Contraindicated) magnesium sulfate IVPB 2000 mg/50 mL in iso-osmotic water (40 mg/mL premix) (Linked Group 4) 2,000 mg, intravenous, at 25 mL/hr, Administer over 120 Minutes, As needed, for magnesium level 1.7to 1.9 mg/dL or ionized magnesium level 0.45 to 0.5 mmol/L, Starting on Fri03/16/25 at 0646, Use premix solution. Default to ionized magnesium level in cases where patient has both magnesium and ionized magnesium results. If administered, check ionized magnesium (or total magnesium if ionized magnesium unavailable) level 4 hours after infusion. melatonin (CIRCADIN) tablet 5 mg 5 mg, oral, Nightly PRN, insomina, Starting on Fri03/23/25 at 1257 * 2131 (Given - Provider: Rylee Baez RN) * 2201 (Given - Provider: Rylee Baez RN) midodrine (PROAMATINE) tablet 5 mg 5 mg, oral, As needed, For dialysis, Starting on Fri03/22/25 at 1245, Look-alike/sound-alike medication - verify indication for use. oxyCODONE (ROXICODONE) immediate release tablet 10 mg(Linked Group 5) 10 mg, oral, Every 4 hours PRN, severe pain - pain scale 7-10, Starting on Fri03/23/25 at 0312, Look-alike/sound-alike medication - verify indication for use. Immediate release. * 0331 (See Alternative - Provider: Sally Bruce RN) * 2132 (See Alternative - Provider: Rylee Baez RN) * 2224 (See Alternative - Provider: Rylee Baez RN) oxyCODONE (ROXICODONE) immediate release tablet 5 mg(Linked Group 5) 5 mg, oral, Every 4 hours PRN, moderate pain - pain scale 4-6, Starting on Fri03/23/25 at 0312, Look-alike/sound-alike medication - verify indication for use. Immediate release. * 0331 (Given - Provider: Sally Bruce RN) * 2132 (Given - Provider: Rylee Baez RN) * 2224 (Given - Provider: Rylee Baez RN) sodium chloride 0.9 % flush 10 mL(Linked Group 2) 10 mL, intravenous, As needed, line care, Starting on Fri03/16/25 at 0652, Short-term Central Line.IVP to lumens before and after each use. sodium chloride 0.9 % flush 10 mL 10 mL, intravenous, As needed, line care, Starting on Fri03/16/25 at 1427, Arterial Lumen. Before use aspirate lumen and discard lumen volume THEN 0.9% Sodium Chloride 10 mL IVP. (promotion officer: flush at beginning of each hemodialysis treatment). * 1330 (Given - Provider: Summer Rosenbaum RN) sodium chloride 0.9 % flush 10 mL 10 mL, intravenous, As needed, line care, Starting on Fri03/16/25 at 1427, Arterial Lumen. 0.9% Sodium Chloride 10 mL IVP THEN 4% sodium citrate (0.2 grams/5 mL) IVP equal to lumen volume after use. (promotion officer: flush and change caps after each hemodialysis treatment) * 1516 (Given - Provider: Summer Rosenbaum RN) sodium chloride 0.9 % flush 10 mL 10 mL, intravenous, As needed, line care, Starting on Fri03/16/25 at 1427, Venous Lumen. Before useaspirate lumen and discard lumen volume THEN 0.9% Sodium Chloride 10 mL IVP. (promotion officer: flush at beginning of each hemodialysis treatment) * 1330 (Given - Provider: Summer Rosenbaum RN) sodium chloride 0.9 % flush 10 mL 10 mL, intravenous, As needed, line care, Starting on Fri03/16/25 at 1427, Venous Lumen. 0.9% Sodium Chloride 10 mL IVP THEN 4% sodium citrate (0.2 grams/5 mL) IVP equal to lumen volume after use. (promotion officer: flush and change caps after each hemodialysis treatment) * 1515 (Given - Provider: Summer Rosenbaum RN) sodium chloride 0.9 % flush 20 mL(Linked Group 2) 20 mL, intravenous, As needed, line care, Starting on Fri03/16/25 at 0652, Short-term Central Line.IVP to lumens after lab draws, blood infusion, and meds known to precipitate. sodium citrate 4 % (3 mL) flush 1.6 mL 1.6 mL, intravenous, As needed, line care, Starting on Fri03/16/25 at 1427, Hemodialysis, Arterial Lumen. IVP equal to lumen volume, up to a maximum of 2 mL, after use. (promotion officer: flush and change caps after each hemodialysis treatment) * 1518 (Given - Provider: Summer Rosenbaum, MISTY) sodium citrate 4 % (3 mL) flush 1.6 mL 1.6 mL, intravenous, As needed, line care, Starting on Fri03/16/25 at 1427, Hemodialysis, Venous Lumen. IVP equal to lumen volume, up to a maximum of 2 mL, after use. (promotion officer: flush and change caps after each hemodialysis treatment) * 1517 (Given - Provider: Summer Rosenbaum RN) sodium phosphate 20 mmol in sodium chloride 0.9 % 100 mL IVPB(Linked Group 6) 20 mmol, intravenous, at 26.7 mL/hr, Administer over 4 Hours, As needed, for phosphorous level 2.3 mg/dL or less, Starting on Fri03/16/25 at 0646, Administer over 4 hours via dedicated line(central line). If administered, recheck phosphorus level 4 hours after infusion complete. Infuse using central line access. sodium phosphate 20 mmol in sodium chloride 0.9 % 250 mL IVPB(Linked Group 6) 20 mmol, intravenous, at 42.8 mL/hr, Administer over 6 Hours, As needed, for phosphorous level 2.3 mg/dL or less, Starting on Fri03/16/25 at 0646, Administer over 6 hours via dedicated line (peripheral line). If administered, recheck phosphorus level 4 hours after infusion complete. Order Group 1: meropenem (MERREM) 500 mg in sodium chloride 0.9 % 50 mL IVPB W/ADAPTER (COMPLETED) 500 mg, intravenous, at 100 mL/hr, Administer over 0.5 Hours, Once, On 03/19/25 at 1400, For 1 dose, For Vial-2-Bag: Attach bag and vial to adapter - Use immediately after activating; dissolve drug prior to administration., Approved Indication: ESBL organism, Authorizing Service: ID consult has been placed, I acknowledge that an appropriate consult is REQUIRED to use this drug at [facility], [facility] and [facility] per [facility]-approved policy # MM 1.15: Yes Followed by meropenem (MERREM) 500 mg in sodium chloride 0.9 % 50 mL IVPB W/ADAPTER (CANCELED)Jump to med 500 mg, intravenous, at 16.7 mL/hr, Administer over 3 Hours, Every 24 hours, First dose on Fri03/20/25 at 1600, To be given after hemodialysis on dialysis days. For Vial-2-Bag: Attach bag and vial toadapter - Use immediately after activating; dissolve drug prior to administration., Approved Indication: ESBL organism, Authorizing Service: ID consult has been placed, I acknowledge that an appropriate consult is REQUIRED to use this drug at [facility], [facility] and [facility] per [facility]-approved policy # MM 1.15: Yes Group 2: sodium chloride 0.9 % flush 30 mLJump to med 30 mL, intravenous, Every 8 hours, First dose on Fri03/16/25 at 0700, Short-term Central Line. IVP to lumens. And sodium chloride 0.9 % flush 10 mLJump to med 10 mL, intravenous, As needed, line care, Starting on Fri03/16/25 at 0652, Short-term Central Line.IVP to lumens before and after each use. And sodium chloride 0.9 % flush 20 mLJump to med 20 mL, intravenous, As needed, line care, Starting on Fri03/16/25 at 0652, Short-term Central Line.IVP to lumens after lab draws, blood infusion, and meds known to precipitate. Group 3: calcium gluconate IVPB 1000 mg/50 mL (20 mg/mL premix)Jump to med 1,000 mg, intravenous, at 50 mL/hr, Administer over 60 Minutes, As needed, for ionized calcium level 3.5 to 4.4 mg/dL, Starting on Fri03/16/25 at 0646, Recheck ionized calcium 6 hours after infusion.Hold calcium replacement for phosphorus greater than 5.5 mg/dL. VESICANT (RED) Or calcium gluconate IVPB 2000 mg/100 mL (20 mg/mL premix)Jump to med 2,000 mg, intravenous, at 100 mL/hr, Administer over 60 Minutes, As needed, for ionized calcium level 3 to 3.4 mg/dL, Starting on Fri03/16/25 at 0646, Recheck ionized calcium 6 hours after infusion. Hold calcium replacement for phosphorus greater than 5.5 mg/dL. VESICANT (RED) Or calcium gluconate 3,000 mg in sodium chloride 0.9 % 100 mL IVPB (CANCELED) 3,000 mg, intravenous, at 130 mL/hr, Administer over 60 Minutes, As needed, for ionized calcium level less than 3 mg/dL, Starting on Fri03/16/25 at 0646, CALL PHYSICIAN if this dose is administered. Recheck ionized calcium 6 hours after infusion. Hold calcium replacement for phosphorus greater than5.5 mg/dL. VESICANT (RED) Group 4: magnesium sulfate IVPB 2000 mg/50 mL in iso-osmotic water (40 mg/mL premix)Jump to med 2,000 mg, intravenous, at 25 mL/hr, Administer over 120 Minutes, As needed, for magnesium level 1.7to 1.9 mg/dL or ionized magnesium level 0.45 to 0.5 mmol/L, Starting on Fri03/16/25 at 0646, Use premix solution. Default to ionized magnesium level in cases where patient has both magnesium and ionized magnesium results. If administered, check ionized magnesium (or total magnesium if ionized magnesium unavailable) level 4 hours after infusion. Or magnesium sulfate IVPB 4000 mg/100 mL in iso-osmotic water (40 mg/mL premix) (CANCELED) 4,000 mg, intravenous, at 25 mL/hr, Administer over 240 Minutes, As needed, for magnesium level 1.6mg/mL or less, or ionized magnesium level 0.44 mmol/L or less, Starting on Fri03/16/25 at 0646, Usepremix solution. Default to ionized magnesium level in cases where patient has both magnesium and ionized magnesium results. If administered, check ionized magnesium (or total magnesium if ionized magnesium unavailable) level 4 hours after infusion. Group 5: oxyCODONE (ROXICODONE) immediate release tablet 5 mgJump to med 5 mg, oral, Every 4 hours PRN, moderate pain - pain scale 4-6, Starting on Fri03/23/25 at 0312, Look-alike/sound-alike medication - verify indication for use. Immediate release. Or oxyCODONE (ROXICODONE) immediate release tablet 10 mgJump to med 10 mg, oral, Every 4 hours PRN, severe pain - pain scale 7-10, Starting on Fri03/23/25 at 0312, Look-alike/sound-alike medication - verify indication for use. Immediate release. Group 6: sodium phosphate 20 mmol in sodium chloride 0.9 % 250 mL IVPBJump to med 20 mmol, intravenous, at 42.8 mL/hr, Administer over 6 Hours, As needed, for phosphorous level 2.3 mg/dL or less, Starting on Fri03/16/25 at 0646, Administer over 6 hours via dedicated line (peripheral line). If administered, recheck phosphorus level 4 hours after infusion complete. Or sodium phosphate 20 mmol in sodium chloride 0.9 % 100 mL IVPBJump to med 20 mmol, intravenous, at 26.7 mL/hr, Administer over 4 Hours, As needed, for phosphorous level 2.3 mg/dL or less, Starting on Fri03/16/25 at 0646, Administer over 4 hours via dedicated line(central line). If administered, recheck phosphorus level 4 hours after infusion complete. Infuse using central line access. Or sod phos di, mono-K phos mono (K-PHOS NEUTRAL) 250 mg tablet 2 tablet (CANCELED) 2 tablet, oral, As needed, for phosphorous level 2.3 mg/dL or less, Starting on Fri03/16/25 at 0646, If dose administered, recheck phosphorus level 4 hours after last dose. Look-alike/sound-alike medication - verify indication for use. Give with a full glass of water. documented in this encounter Additional Health Concerns InfectionOnset DateLast IndicatedResolved TimeRespiratory Rule-Out03/16/2025 9:49 AM ESTCOVID-19 Rule-Out 6:11 PM ESTdocumented as of this encounter Care Teams Team MemberRelationshipSpecialtyStart DateEnd Date Gato Cha MD [address] [place] [address] PCP - GeneralFamily Zfsjisyw64/13/25documented as of this encounter
--- OUTSIDE RECORDS SUMMARY | 2025-04-01 12:36 | XMS_ITS | Encounter Summary ---
Author Organization [employer] s tem Address [facility] [id number] [address] [place] [address] Care Team Providers Care Contact Worker Lithography Name Role Phone Rico Thakkar MD Primary Care Provider [phone] Encounter Details DateTypeDepartmentCare Team (Latest Contact Info)Eldiuitqdog54/18/2025Travel Social History Tobacco UseTypesPacks/DayYears UsedDateSmoking Tobacco: NeverSmokeless Tobacco: Never Comments:02/25 [facility] - AMS, un able to reach family. Per [place] pt does not have history of smoking on file with them Alcohol UseStandard Drinks/WeekCommentsDefer0 (1 standard drink = 0.6 oz pure alcohol)02/25 [facility] - AMS, unable to reach family.AUDIT-CAnswerDate RecordedQ1: How often do you have a drink containing alcohol?Patient unable to answer 02/25/2025Q2: How many drinks containing alcohol do you have on a typical day when you are drinking?Patient unable to ywjpqv6102/25/2025Q3: How often do you have six or more drinks on one occasion?Patient unable to tceoov6702/25/2025 PRAPARE - TransportationAnswerDate RecordedIn the past 12 [...] stay in as a part of a household?No5ChildcareAnswerDate RecordedChildcareUnknown 09/21/2018EmploymentAnswerDate ZhkhakuoPelqphmmhoWbgupzn15/10/2019Hunger ScreeningAnswerDate RecordedWithin the past 12 months we worried whether our food would run out before we got money to buy more.Never True03/19/2025Within the past 12 months the food we bought just didn't last and we didn't have money to get more.Never True03/19/2025Sex and Gender InformationValueDate RecordedSex Assigned at BirthNot on fileLegal FfgEely1111/15/2014 1:57 PM EDTGender Identity Not on fileSexual OrientationNot on filedocumented as of this encounter Plan of Treatment DateTypeDepartmentCare Team (Latest Contact Info)Yrzufgerbrp52/14/2026 11:00 AM ESTOffice Visit [facility] [address] [facility] [address] [place] [address] Rosana Black APRN-ADOBE ARCHITECT [address] [facility] [address] [address] documented as of this encounter Goals GoalPatient Goal TypeAssociated ProblemsRecent ProgressPatient-Stated?Author [facility] Arianna Raymond RN Note: Evaluation of progress towards goal: Patient plans to return to [facility] documented as of this encounter Visit Diagnoses Not on filedocumented in this encounter Care Teams Team MemberRelationshipSpecialtyStart DateEnd Date Rico Thakkar MD [address] [place] [address] PCP - GeneralFamily Sgbxvzve88/13/25documented as of this encounter
--- OUTSIDE RECORDS SUMMARY | 2025-04-01 12:36 | XMS_ITS | Encounter Summary ---
Author Organization [employer] Address [facility] [id number] [address] [place] [address] Care Team Providers Care Cereal Popper Name Role Phone Rico Thakkar MD Primary Care Provider [phone] Encounter Details DateTypeDepartmentCare Team (Latest Contact Info)Pgxefentfin17/18/2025Orders Only Annalise Gomez [facility] - Medical On[facility] [address] [place] [address] Jacqueline Witt RN Anemia, unspecified type (Primary Dx) Social History Tobacco UseTypesPacks/DayYears UsedDateSmoking Tobacco: NeverSmokeless Tobacco: Never Comments:02/25 [facility] - AMS, un able to reach family. Per [place] pt does not have history of smoking on file with them Alcohol UseStandard Drinks/WeekCommentsDefer0 (1 standard drink = 0.6 oz pure alcohol)02/25 TE[facility] - AMS, unable to reach family.AUDIT-CAnswerDate RecordedQ1: How often do you have a drink containing alcohol?Patient unable to answer 02/25/2025Q2: How many drinks containing alcohol do you have on a typical day when you are drinking?Patient unable to ojiomu3102/25/2025Q3: How often do you have six or more drinks on one occasion?Patient unable to vibekf2402/25/2025 PRAPARE - TransportationAnswerDate RecordedIn the past 12 [...] a part of a household?No02/25/2025hildcareAnswerDate RecordedChildcareUnknown 09/21/2018EmploymentAnswerDate IikcsjinGptuevjjnkCqaxyeu22/10/2019Hunger ScreeningAnswerDate RecordedWithin the past 12 months we worried whether our food would run out before we got money to buy more.Never True03/19/2025Within the past 12 months the food we bought just didn't last and we didn't have money to get more.Never True03/19/2025Sex and Gender InformationValueDate RecordedSex Assigned at BirthNot on fileLegal BdnKcya7211/15/2014 1:57 PM EDTGender Identity Not on fileSexual OrientationNot on filedocumented as of this encounter Plan of Treatment DateTypeDepartmentCare Team (Latest Contact Info)Gahpuinjjwb13/14/2026 11:00 AM ESTOffice Visit [facility] [address] [facility] [address] [place] [address] Rosana Black, FERN-ESTIMATING ENGINEER [address] [facility] [address] [address] NameTypePriorityAssociated DiagnosesOrder ScheduleCrossmatch RBCBlood Bank Routine Anemia, unspecified type Expected: 03/31/2025 (Approximate), Expires: 03/31/2026documented as of this encounter Goals GoalPatient Goal TypeAssociated ProblemsRecent ProgressPatient-Stated?Author Arianna Louise, RN Note: Evaluation of progress towards goal: Patient plans to return to [facility] documented as of this encounter Visit Diagnoses Diagnosis Anemia, unspecified type- Primary documented in this encounter Care Teams Team MemberRelationshipSpecialtyStart DateEnd Date Ariane, Rugen M, MD [address] [place] [address] PCP - GeneralFamily Lsslrcmc54/13/25documented as of this encounter
--- OUTSIDE RECORDS SUMMARY | 2025-04-01 12:36 | XMS_ITS | Encounter Summary ---
Author Organization [employer] s tem Address [facility] [place]-[id number] [address] [place] [address] Care Team Providers Care Associate Material Handler Name Role Phone Rico Thakkar MD Primary Care Provider [phone] Encounter Details DateTypeDepartmentCare Team (Latest Contact Info)Pcwsxzwbumn10/08/2025Travel Social History Tobacco UseTypesPacks/DayYears UsedDateSmoking Tobacco: NeverSmokeless Tobacco: Never Comments:02/25 [facility] - AMS, un able to reach family. Per [place] pt does not have history of smoking on file with them Alcohol UseStandard Drinks/WeekCommentsDefer0 (1 standard drink = 0.6 oz pure alcohol)02/25 TE[facility] - AMS, unable to reach family.AUDIT-CAnswerDate RecordedQ1: How often do you have a drink containing alcohol?Patient unable to answer 02/25/2025Q2: How many drinks containing alcohol do you have on a typical day when you are drinking?Patient unable to lvowzp5602/25/2025Q3: How often do you have six or more drinks on one occasion?Patient unable to dsmhto8202/25/2025 PRAPARE - TransportationAnswerDate RecordedIn the past 12 [...] a part of a household?No5ChildcareAnswerDate RecordedChildcareUnknown 09/21/2018EmploymentAnswerDate HqblhhuyWbmdsuvgjzWpabcjm01/10/2019Hunger ScreeningAnswerDate RecordedWithin the past 12 months we worried whether our food would run out before we got money to buy more.Never True03/19/2025Within the past 12 months the food we bought just didn't last and we didn't have money to get more.Never True03/19/2025Sex and Gender InformationValueDate RecordedSex Assigned at BirthNot on fileLegal UkmMywr5011/15/2014 1:57 PM EDTGender Identity Not on fileSexual OrientationNot on filedocumented as of this encounter Plan of Treatment DateTypeDepartmentCare Team (Latest Contact Info)Hkbidofkvra97/14/2026 11:00 AM ESTOffice Visit [facility] [address] [facility] [address] [place] [address] Rosana Black APRN-[employer] BLASTING [address] [facility] [address] [address] documented as of this encounter Goals GoalPatient Goal TypeAssociated ProblemsRecent ProgressPatient-Stated?Author [facility] Arianna Raymond RN Note: Evaluation of progress towards goal: Patient plans to return to [facility] documented as of this encounter Visit Diagnoses Not on filedocumented in this encounter Care Teams Team MemberRelationshipSpecialtyStart DateEnd Date Rico Thakkar MD [address] [place] [address] PCP - GeneralFamily Waxtbhbb36/13/25documented as of this encounter
--- OUTSIDE RECORDS SUMMARY | 2025-04-01 12:36 | XMS_ITS ---
Author Organization [employer] s tem Address [id number] [address] [place] [address] Care Team Providers Care Director Learning Name Role Phone Rico Thakkar MD Primary Care Provider [phone] Dialysis Plan of Treatment As-Of DatePrescribed Dry WeightPrimary Zvfzjez03/11/2025Acute Dialysis SCA ModalityPrescribed Duration (hours)FrequencyBlood Flow RateConventional Hemodialysis2:06942 mL/minTypeLocationSodium LevelPotassium LevelCalcium Level Bicarbonate Jnifk942 mEq/L3 mEq/L2.5 mEq/L35 mEq/L from Last 30 Days Dialysis Access Sites TypeStatusLocationPlacement DateRemoval DateHemodialysis Catheter Double Cuffed Right Internal JugularActiveRight Neck (side) - Anterior Procedures Procedure NamePriorityDate/TimeAssociated DiagnosisCommentsSARS COV 2 BY NAAT/QMKNZTPYPYfttxum80/11/2025 4:53 PM EST HEMOGLOBIN AND HEMATOCRIT, IGKUECovneof55/11/2025 4:37 PM EST HEMODIALYSIS AZOGNUTJGTuehwus93/11/2025 3:23 PM EST BEDSIDE XOSPMHFFzfkzsf01/11/2025 2:32 PM EST FL SWALLOW MOTILITY NKZUHIONYxhzhkp89/11/2025 10:41 AM EST CK ITTHQMcaltks38/11/2025 5:47 AM EST CBC WITH AUTO PEPOHQJPXGZVOgkrokb60/11/2025 5:47 AM EST COMPREHENSIVE METABOLIC KNCNFMzcznan62/11/2025 5:47 AM EST HEMOGLOBIN AND HEMATOCRIT, XKXAVTsmargr98/10/2025 3:15 PM EST HEMODIALYSIS TVQXILUBPGstjfli12/10/2025 12:34 PM EST WRBJRWUODOzluuuk53/10/2025 6:04 AM EST CBC WITH AUTO AUZSHWKRMFGBWhriqrd94/10/2025 6:04 AM EST COMPREHENSIVE METABOLIC RWNPYWsuxnak28/10/2025 6:04 AM EST HEMOGLOBIN AND HEMATOCRIT, FBKUPLqhrhkq60/09/2025 4:[address] ABDOMEN AND PELVIS WO MOATAietkls46/09/2025 3:00 PM EST HEMOGLOBIN AND HEMATOCRIT, FCCWAWbdrgok52/09/2025 1:24 PM EST OCCULT BLOOD X 1, VZVFLDuczqvq25/09/2025 11:59 AM EST TRANSFUSE RED BLOOD ZCXMILdknzmj45/09/2025 10:11 AM ESTREPEATED ABORHRoutine 03/22/2025 7:52 AM ESTCROSSMATCH YIXDtdgnir00/09/2025 7:00 AM EST EXTRA TUBES LAVENDER RGZGyystqq60/09/2025 7:00 AM EST TYPE AND PYAFFWAwcrvln54/09/2025 7:00 AM EST FOLATEAdd-On03/22/2025 7:00 AM EST VITAMIN O65Foq-Zb42/09/2025 7:00 AM EST FERRITINAdd-On03/22/2025 7:00 AM EST EXTRA GYLUBTymnnoj39/09/2025 7:00 AM EST IRON AND TIBCAdd-On03/22/2025 7:00 AM EST JXOVHJTZCXnowvhc04/09/2025 5:29 AM EST CBC WITH AUTO XDZZPMQDMDGLCadwduh79/09/2025 5:29 AM EST COMPREHENSIVE METABOLIC DTNUTFpxtlnl35/09/2025 5:29 AM EST TROP I, HIGH SENSITIVITY 1 NDYRLHUA31/08/2025 5:08 PM EST ECG 12-CDWIZyoicjz33/08/2025 3:44 PM EST TROPONIN I, HIGH SENSITIVITY 0 HANHBQBE49/08/2025 3:18 PM EST TROPONIN I, HIGH SENSITIVITY 0 BWESZYNC14/08/2025 3:18 PM EST HEMODIALYSIS MPWRRQFGZXqgtqow25/08/2025 2:30 PM EST REPEATED YJTECDktqseb17/08/2025 6:42 AM EST CK TOTALAdd-On03/21/2025 6:42 AM EST RZODOUSXQSpizxmj52/08/2025 6:42 AM EST CBC WITH AUTO XCMPYCATGJPSAhxummq03/08/2025 6:42 AM EST COMPREHENSIVE METABOLIC BBYKSHkqgqno60/08/2025 6:42 AM EST FL SWALLOW MOTILITY WTYJLKBYDucpdft49/06/2025 10:17 AM EST CBC WITH AUTO EDKZXCMABRXAQcejbdo13/06/2025 6:49 AM EST COMPREHENSIVE METABOLIC TBQBDVlvvcvr15/06/2025 6:49 AM EST BLOOD GRLZMQQMBSU25/06/2025 6:49 AM EST BLOOD XHZWXCPNCJG53/06/2025 6:49 AM EST XR CHEST 1 WSIlykxye80/06/2025 4:52 AM EST NVOIEWKODzhcxzz96/05/2025 2:24 PM EST HEMODIALYSIS GYNVSPZDSCmfcxro13/05/2025 11:02 AM EST ONCEONONYEQywdfpl28/05/2025 5:03 AM EST PROCALCITONINAdd-On03/18/2025 2:03 AM EST CBC WITH AUTO OMMLZRQGXRJOGedlhoj70/05/2025 2:03 AM EST COMPREHENSIVE METABOLIC ZOOGJMqsiebk29/05/2025 2:03 AM EST IONIZED WLQSKZOWRQoyifjb23/04/2025 11:36 AM EST HEMOGLOBIN AND HEMATOCRIT, VMBVKVXFI18/04/2025 7:40 AM EST FNBODILKTJzwpjqm99/04/2025 6:27 AM EST BEDSIDE CJXEWIGIzkdfud86/04/2025 2:23 AM EST MAGNESIUMAdd-On03/17/2025 2:23 AM EST CBC WITH AUTO MUJOCEKZYEWQQmhaxfc04/04/2025 2:23 AM EST COMPREHENSIVE METABOLIC ERGJVEiwqvko37/04/2025 2:23 AM EST BEDSIDE KQFDYAAAlbeivv10/03/2025 7:17 PM EST CK LKVSSOVTL19/03/2025 6:01 PM EST HEMODIALYSIS XODQXJTVMRkaxycl48/03/2025 5:32 PM EST CBC WITH AUTO PCFEVDSJGOMTUxtwqei57/03/2025 11:32 AM EST COMPREHENSIVE METABOLIC TCGYMVfebkjc43/03/2025 11:32 AM EST BLOOD EMJKLBAICJC90/03/2025 10:35 AM EST BLOOD HZKMAMSXHBE59/03/2025 10:35 AM EST S PNEUMONIAE AG KKgqgjst67/03/2025 7:48 AM EST LEGIONELLA ANTIGEN, EHQAGMuozmet62/03/2025 7:48 AM EST RESP PATHOGENS PANEL/ZIJX-TJO-0Eygeqmr26/03/2025 7:48 AM EST MRSA PCR NASAL UCRBNwmujmf76/03/2025 7:48 AM EST BEDSIDE IETOIZNZtrvjkl83/03/2025 6:48 AM EST SALAS TOP ON LJBZWGJ5303/16/2025 5:38 AM EST LAVENDER JEHGBLT1303/16/2025 5:38 AM EST PST JSQTGPV4503/16/2025 5:38 AM EST BLUE NCIVAZX0103/16/2025 5:38 AM EST B-TYPE NATRIURETIC PEPTIDEAdd-On03/16/2025 5:38 AM EST RAINBOW LOZFTNGF18/03/2025 5:38 AM EST PM ED CRITICAL QUGJBhypbky64/03/2025 5:20 AM EST LACTATE W/ STGFTRKHMW87/03/2025 2:40 AM EST TROP I, HIGH SENSITIVITY 1 QINIFQEG86/03/2025 2:40 AM EST XR CHEST 1 QCRQVD2703/16/2025 1:52 AM EST BEDSIDE BVQCIQWIfktrfx10/03/2025 1:50 AM EST EXTRA TUBES SST VYJQoyklla34/03/2025 1:35 AM EST EXTRA TUBES LAVENDER OLHWatheof86/03/2025 1:35 AM EST EXTRA TUBES BLUE ZVCJrztcbv82/03/2025 1:35 AM EST EXTRA VPUFJCzrnkxs33/03/2025 1:35 AM EST TROPONIN I, HIGH SENSITIVITY 0 ZVDVRZTO44/03/2025 1:35 AM EST EMELTWNFZYUYT89/03/2025 1:35 AM EST TROPONIN I, HIGH SENSITIVITY 0 XQNCENPT33/03/2025 1:35 AM EST ECG 12-HIPAKVLN49/03/2025 1:03 AM EST PM ED CENTRAL UQDYKabyzil90/03/2025 12:57 AM EST PM ED CRITICAL WPVVUgrkfif56/03/2025 12:57 AM EST TROP I, HIGH SENSITIVITY 1 OABHRBAD86/02/2025 6:53 PM EST UOEDDXCDDRSDVX37/02/2025 5:51 PM EST URINE FZVZAOTERJV59/02/2025 5:51 PM EST ECG 12-YYHLHVYP66/02/2025 5:50 PM EST XR CHEST 1 ZRJMOD9603/15/2025 5:48 PM EST BPUINKRXJK66/02/2025 5:39 PM EST LIVER SIHLMPQRH98/02/2025 5:39 PM EST THYROID PROFILE INCLUDES TSH BO5LHSK4303/15/2025 5:39 PM EST XOQJYKNAHSNZI44/02/2025 5:39 PM EST LACTATE W/ RTSFJXMHCA09/02/2025 5:39 PM EST TROPONIN I, HIGH SENSITIVITY 0 DSNJUORC81/02/2025 5:39 PM EST CBC WITH AUTO BGRVNWEHBMYNDJCM11/02/2025 5:39 PM EST BTEPGUZC28/02/2025 5:39 PM EST PROTIME & QLGHPUB7303/15/2025 5:39 PM EST BASIC METABOLIC OYGICQSUD13/02/2025 5:39 PM EST TROPONIN I, HIGH SENSITIVITY 0 NRWEADXO47/02/2025 5:39 PM EST BLOOD ZSMEUTCOAOK61/02/2025 5:39 PM EST BLOOD OFNUIBBMLDU69/02/2025 5:39 PM EST ED PHYSICIAN NIHSS AND THROMBOLYTIC BCXUIIRTZcfkrlp84/02/2025 5:28 PM EST BEDSIDE OZXWGFRLskqbce95/02/2025 5:[address] BRAIN WO CONT STROKE KKTTYSOHL58/02/2025 5:15 PM EST BMEJQPZROYuvcqwq08/18/2025 4:52 AM EST COMPREHENSIVE METABOLIC COKNSDhucyuc58/18/2025 4:52 AM EST CBC WITH AUTO UXOVPAFVFYJFAsezafu96/18/2025 4:52 AM EST HEMODIALYSIS / ULTRAFILTRATION - LACAYOnrnwpz45/17/2025 1:48 PM EST MYFNPOTBLTdqqqkf15/17/2025 7:19 AM EST COMPREHENSIVE METABOLIC WXWBYGreshun40/17/2025 7:19 AM EST CBC WITH AUTO RMHBWPWGVDCKEczgucv94/17/2025 7:19 AM EST BEDSIDE DZIMAZRHbvaaod71/16/2025 8:31 AM EST DZDTAAYHTLtbjsml18/16/2025 3:18 AM EST COMPREHENSIVE METABOLIC XUERSLqoxkky53/16/2025 3:18 AM EST CBC WITH AUTO LTDIVKXTYASRBmvrxzg31/16/2025 3:18 AM EST BEDSIDE JBTPOUAAhdidyd93/15/2025 8:56 PM EST BEDSIDE LNFREVTNeqkyeo00/15/2025 4:45 PM EST BEDSIDE HUWQZAGFzvmwii91/15/2025 8:43 AM EST UOALMLBWMOfrqxkn45/15/2025 4:57 AM EST COMPREHENSIVE METABOLIC GBXUAKdfsyyf88/15/2025 4:57 AM EST CBC WITH AUTO OMAHHJWLFRSJOvxzzgt20/15/2025 4:57 AM EST BEDSIDE CVCMDMRSofrqkz61/14/2025 8:51 PM EST BEDSIDE KDXVALADhvujpa38/14/2025 5:10 PM EST HEMODIALYSIS / ULTRAFILTRATION - HWDMPQymddqn84/14/2025 12:27 PM EST HEPATITIS C(HCV) ANTIBODY W/REFLEX TO DPPAedojxw90/14/2025 10:23 AM EST HEPATITIS B SURFACE ANTIBODY FWRDMKUFZFOKExqizbr34/14/2025 10:23 AM EST HEPATITIS B SURFACE MGMIPJHSjemoto96/14/2025 10:23 AM EST C-REACTIVE TKBBXMZUrzgmdt51/14/2025 6:29 AM EST THIAMIN (VITAMIN B1), RGDnbjhar27/14/2025 6:29 AM EST VITAMIN D 25 HLWEWCVCabheky27/14/2025 6:29 AM EST IRON AND QPYUJldhtun02/14/2025 6:29 AM EST VITAMIN P53Yartqex45/14/2025 6:29 AM EST GAYZEDAgdfxce68/14/2025 6:29 AM EST EFYQOPPZEdxpgcn43/14/2025 6:29 AM EST THYROID PROFILE INCLUDES TSH EW0Hobgrmr22/14/2025 6:29 AM EST CUXASYNGENujcnda13/14/2025 6:29 AM EST COMPREHENSIVE METABOLIC PDLNABjkbcjm86/14/2025 6:29 AM EST CBC WITH AUTO ALJHKKGIXKISOktakeq95/14/2025 6:[address] BRAIN WO DAWSPARP96/13/2025 7:25 PM EST LACTATE W/ SVGSMTDQSV77/13/2025 5:20 PM EST TROP I, HIGH SENSITIVITY 1 HFUNKNVU69/13/2025 5:20 PM EST BLOOD PEVZHINWNPL73/13/2025 5:20 PM EST BLOOD QPXMMWPDSVG87/13/2025 5:20 PM EST XR CHEST 1 LLGBEI4502/24/2025 4:50 PM EST POCT NURSING URINE MACROSCOPIC OYMqcsqyp05/13/2025 4:23 PM EST ER EXTRA URINE XWQCIRMNFZU08/13/2025 4:22 PM EST ER EXTRA URINE NWCSBOYZZG92/13/2025 4:21 PM EST ER EXTRA FDTZABKWA27/13/2025 4:21 PM EST URINE DFPKUGXJPKX58/13/2025 4:21 PM EST ECG 12-BPPYVALJ31/13/2025 4:18 PM EST TROPONIN I, HIGH SENSITIVITY 0 ZZBUKJOO70/13/2025 4:13 PM EST YNCIGORBOASZQ62/13/2025 4:13 PM EST TROPONIN I, HIGH SENSITIVITY 0 UAKEFHPS70/13/2025 4:13 PM EST COMPREHENSIVE METABOLIC UZAKBBHAP30/13/2025 4:13 PM EST CBC WITH AUTO GNOKKINYOUGFTLLC60/13/2025 4:13 PM EST from Last 3 Months Allergies Active AllergyReactionsCriticalityNoted GpaqOtflkguyVevbtsesjv57/13/2025 Yospkjmlkf12/13/2025DiphenhydramineAnxiety,Hallucinations,Other (See Comments) Bhlsev5301/03/2025 Confusion Zkrkijqtzf14/13/0958Qydnujupj12/13/8130HqnpluepgrnoxRznom69/10/2025 Patient states I get hives , breakout in rashes Wetweefhaj93/13/2025Sulfa (Sulfonamide Antibiotics)02/24/2025 Medications MedicationSigDispense QuantityRefillsLast FilledStart DateEnd DateStatus acetaminophen (TYLENOL EXTRA STRENGTH) 500 mg tablet Take 2 tablets (1,000 mg total) by mouth every 12 (twelve) hours as needed for pain.Active albuterol (PROVENTIL HFA;VENTOLIN HFA) 90 mcg/actuation inhaler Inhale 2 puffs every 6 (six) hours as needed for wheezing or shortness of breath.Active albuterol (PROVENTIL,VENTOLIN) 2.5 mg /3 mL (0.083 %) nebulizer solution Inhale 3 mL (2.5 mg total) every 6 (six) hours as needed for wheezing or shortness of breath.Active albuterol-budesonide 90-80 mcg/actuation HFA aerosol inhaler Inhale 2 puffs every 6 (six) hours as needed (wheezing, SOB).Active allopurinoL 200 mg tablet Take 200 mg by mouth in the morning.Active amiodarone (PACERONE) 200 mg tablet Take 1 tablet (200 mg total) by mouth in the morning.5Active ARIPiprazole (ABILIFY) 10 mg tablet Indications:bipolar disorderTake 1 tablet (10 mg total) by mouth in the morning. Indications: manic-depression.Active atorvastatin (LIPITOR) 40 mg tablet Indications:hyperlipidemiaTake 1 tablet (40 mg total) by mouth in the morning. Indications: excessive fat in the blood.Active budesonide (PULMICORT) 0.5 mg/2 mL nebulizer solution Inhale 2 mL (0.5 mg total) in the morning and 2 mL (0.5 mg total) before bedtime.Active busPIRone (BUSPAR) 15 mg tablet Take 1 tablet (15 mg total) by mouth 3 (three) times a day.Active apixaban (ELIQUIS) 5 mg tablet Take 1 tablet (5 mg total) by mouth in the morning and 1 tablet (5 mg total) before bedtime.04/08/2024ctive DULoxetine (CYMBALTA) 20 mg capsule Take 1 capsule (20 mg total) by mouth in the morning.Active ammonium lactate (AMLACTIN) 12 % cream Apply 1 Application topically in the morning and 1 Application before bedtime. Active gabapentin (NEURONTIN) 100 mg capsule Take 1 capsule (100 mg total) by mouth 3 (three) times a day.Active ipratropium-albuteroL (DUONEB) 0.5 mg-3 mg(2.5 mg base)/3 mL nebulizer Inhale 3 mL in the morning and 3 mL before bedtime./ctive isosorbide mononitrate (IMDUR) 120 mg 24 hr tablet Take 1 tablet (120 mg total) by mouth daily.02/19/2025tive midodrine (PROAMATINE) 10 mg tablet Take 1 tablet (10 mg total) by mouth every 3 (three) hours as needed (for hypotension give pre and mid dialysis).02/22/2025tive nitroglycerin (NITROSTAT) 0.[address] 1 tablet (0.4 mg total) under the tongue every 5 (five) minutes as needed for chest pain.02/20/2025tive pantoprazole (PROTONIX) 40 mg EC tablet Take 1 tablet (40 mg total) by mouth every morning before breakfast.12/29/2024 Active polyethylene glycol (GLYCOLAX) 17 gram packet Take 17 g by mouth in the morning.Active ranolazine (RANEXA) 1,000 mg 12 hr tablet Take 1 tablet (1,000 mg total) by mouth in the morning and 1 tablet (1,000 mg total) before bedtime.5Active risperiDONE (RisperDAL) 3 mg tablet Take 1 tablet (3 mg total) by mouth nightly.01/03/2025tive rivastigmine (EXELON) 4.6 mg/[address] 1 patch on the skin in the morning.02/19/2025tive sacubitriL-valsartan (ENTRESTO) 24-26 mg tablet Take 0.5 tablets by mouth in the morning and 0.5 tablets before bedtime. 6Active tamsulosin (FLOMAX) 0.4 mg capsule Take 1 capsule (0.4 mg total) by mouth in the morning.Active ticagrelor (BRILINTA) 90 mg tablet Take 1 tablet (90 mg total) by mouth in the morning and 1 tablet (90 mg total) before bedtime.Active topiramate (TOPAMAX) 200 MG tablet Take 1 tablet (200 mg total) by mouth in the morning and 1 tablet (200 mg total) before bedtime.Active cholecalciferol (VITAMIN D3) 1,000 units tablet Take 2 tablets (2,000 Units total) by mouth in the morning.Active ferrous sulfate 325 (65 FE) MG tablet Take 1 tablet (325 mg total) by mouth daily with breakfast.Active spironolactone (ALDACTONE) 25 mg tablet Take 0.5 tablets (12.5 mg total) by mouth in the morning.5Active cyanocobalamin 1000 MCG tablet Take 1 tablet (1,000 mcg total) by mouth in the morning.5Active darbepoetin sylwia-polysorbate (ARANESP) 60 mcg/0.3 mL syringe Indications:anemia due to renal failureInject 0.3 mL (60 mcg total) under the skin once a week Indications: anemia due to kidney failure.5Active Additional Information Patient taking differently:60 mcg subcutaneous Weekly,Mondays, Indications: anemia due to renal failure, Reported on 03/16/2025 melatonin (CIRCADIN) 5 mg tablet Take 1 tablet (5 mg total) by mouth nightly as needed (insomina).03/01/2025 Active sodium chloride 0.9 % injection Infuse 10 mL into a venous catheter as needed for line care.5Active Additional Information Patient taking differently:10 mL intravenousEvery 12 hours, Line care, Reported on 03/16/2025 sodium chloride 0.9 % injection Infuse 20 mL into a venous catheter as needed for line care.5Active Additional Information Patient not taking.Reported on 03/16/2025 sodium chloride 0.9 % injection Infuse 10 mL into a venous catheter every 12 (twelve) hours.5Active Additional Information Patient not taking.Reported on 03/16/2025 sevelamer (RENVELA) 800 mg tablet Take 1 tablet (800 mg total) by mouth 3 (three) times a day.Active aspirin 81 mg chewable tablet Chew 1 tablet (81 mg total) and swallow in the morning.5Active metoprolol succinate XL (TOPROL XL) 25 mg 24 hr tablet Take 0.5 tablets (12.5 mg total) by mouth in the morning and 0.5 tablets (12.5 mg total) before bedtime.5Active carvediloL (COREG) 3.125 mg tablet Take 1 tablet (3.125 mg total) by mouth in the morning and 1 tablet (3.125 mg total) before bedtime./03/2025Discontinued(Stop Taking at Discharge) furosemide (LASIX) 80 mg tablet Take 1 tablet (80 mg total) by mouth daily.Discontinued(Stop Taking at Discharge) ertapenem in sodium chloride 0.9 % 50 mL IVPB ertapenem (INVanz) 500 mg in sodium chloride 0.9 % 50 mL IVPB 500 mg, intravenous, at 110 mL/hr, Administer over 30 Minutes, Every 24 hour for 4 more daysExpired Active Problems ProblemNoted DateDiagnosed DateSepsis with encephalopathy and septic shock, due to unspecified jibpxazw55/03/2025Has a kalewg4302/25/2025End stage renal disease 02/25/2025ute systolic (congestive) heart wxxiwwg6901/09/2025hronic obstructive pulmonary rtmupuk1101/20/2023trial fibrillation, vjwuzmt2008/20/2019 Overview (02/25/2025): History: POA Assessment: a-fib s/p MAZE Plan: On BB not on AC (reported bleeding per H&P). No AC per Dr. Abdalla Type 2 diabetes mellitus with fencfurwbzned59/01/2011 Immunizations ImmunizationAdministration DatesNext DueCovid-19, Mrna, Lnp-s, Pf, 30 Mcg/0.3 Ml Dose, Gurdeep-dpzebaz8501/29/2022,01/08/2022Influenza, Injectable, quadrivalent (PF) 01/16/2024Influenza, Trivalent, Jdbnzjrekf79/02/2025,03/02/2019PPD Test 12/08/2023,11/28/2023,03/29/2023,03/19/2023,3Pneumococcal Conjugate 13-Fgvdyh0803/22/2019Pneumococcal Ctpjfhyfybvown96/25/2020,10/01/2017Pneumococcal, Dybclvkldhf80/19/2012,01/15/2007Tdap10/01/2017,06/17/2013Tuberculin Skin Test; Unspecified Wirupecpcyc58/25/2024,02/26/2024Zoster Vaccine Awjkypbhsgm97/06/2019 ,01/28/2018,10/01/2017 Social History Tobacco UseTypesPacks/DayYears UsedDateSmoking Tobacco: NeverSmokeless Tobacco: Never Tobacco Cessation:Counseling Given: No Comments:02/25 [facility] - AMS, unable to reach family. Per [facility] pt does not have history of smoking on file with them Alcohol UseStandard Drinks/WeekCommentsDefer0 (1 standard drink = 0.6 oz pure alcohol)02/25 [facility] - AMS, unable to reach family.AUDIT-CAnswerDate RecordedQ1: How often do you have a drink containing alcohol?Patient unable to answer 02/25/2025Q2: How many drinks containing alcohol do you have on a typical day when you are drinking?Patient unable to wkryhv4902/25/2025Q3: How often do you have six or more drinks on one occasion?Patient unable to azcfsx8802/25/2025 PRAPARE - TransportationAnswerDate RecordedIn the past 12 months, has lack of transportation kept you from medical appointments or from getting medications?No 02/25/2025In the past 12 months, has lack of transportation kept you from meetings, work, or from getting things needed for daily living?No02/25/2025HC UtilitiesAnswerDate RecordedIn the past 12 months has the [employer], gas, oil, or water company threatened to shut off services in your home?No02/25/2025Housing InstabilityAnswerDate RecordedAre you worried or concerned that in the next two months you may not have stable housing that you own, rent or stay in as a part of a household?No11/14/2025ChildcareAnswerDate RecordedChildcareUnknown 09/21/2018EmploymentAnswerDate KstdzmodDhkvbkjouaIjmcsjg88/10/2019Hunger ScreeningAnswerDate RecordedWithin the past 12 months we worried whether our food would run out before we got money to buy more.Never True03/19/2025Within the past 12 months the food we bought just didn't last and we didn't have money to get more.Never True03/19/2025Sex and Gender InformationValueDate RecordedSex Assigned at BirthNot on fileLegal BhfLpax7011/15/2014 1:57 PM EDTGender Identity Not on fileSexual OrientationNot on file Last Filed Vital Signs Vital SignReadingTime TakenCommentsBlood Lnrwgwgl209/8203/24/2025 10:06 PM EST Gosqk055503/24/2025 10:06 PM LGHXrijpdvtdlb20.9 ??C (98.5 ??F)03/24/2025 7:34 PM ESTRespiratory Hpns952205/25/2024 9:09 PM ESTOxygen Bdljdwkdcp736%03/24/2025 9:09 PM ESTInhaled Oxygen Concentration--Rwsmih71.9 kg (176 lb 2.4 oz)03/24/2025 3:23 PM FPTCigumg173.2 cm (5' 7 )03/22/2025 10:11 AM ESTBody Mass Index27.59 03/22/2025 10:11 AM EST Results * SARS CoV 2 by NAAT/Molecular (03/24/2025 4:53 PM EST)ComponentValueRef Range Test MethodAnalysis TimePerformed AtPathologist SignatureSARS COV 2Not DetectedNot Nztydrrd62/11/2025 6:11 PM [facility] Specimen (Source)Anatomical Location / LateralityCollection Method / Volume Collection TimeReceived TimeSwabNasopharyngeal structure / Bizlval0703/24/2025 4:53 PM EST03/24/2025 5:15 PM EST Narrative [facility] - 03/24/2025 6:11 PM EST The [...] operators who are performing tests using either GeneXCampus Shift DX or GeneXpert PacketFront systems and is limited to laboratories that [...] resolved with specimen repeat. Authorizing ProviderResult TypeResult StatusTaylmaritza Albert [facility]PITALICROBIOLOGY - GENERAL ORDERABLESFinal ResultPerforming OrganizationAddressCity/State/ZIP Code Phone Number [facility] [address] [place] [address], * (ABNORMAL) Hemoglobin and hematocrit, blood (03/24/2025 4:37 PM EST) Only the most recent of5 resultswithin the time period is included. ComponentValueRef RangeTest MethodAnalysis TimePerformed AtPathologist Signature Hemoglobin8.7(L)13 - 17 g/dL03/24/2025 5:02 PM [facility] AMBGWOVOEQFriwhzqqon76.6(L)39 - 50 %03/24/2025 5:02 PM [facility] LABORATORYSpecimen (Source)Anatomical Location / LateralityCollection Method / VolumeCollection TimeReceived TimeBloodVenous blood / Unknown Venipuncture / Ufmrlsf6203/24/2025 4:37 PM EST03/24/2025 4:48 PM EST Narrative Authorizing ProviderResult TypeResult StatusTaylmaritza Albert [facility] BLOOD ORDERABLESFinal ResultPerforming OrganizationAddressCity/State/ZIP CodePhone Number [facility] [address] [place] [address], [place] [phone] * Hemodialysis inpatient (03/24/2025 3:23 PM EST) [...] feel better. Vitals remained stable throughout. Dr. Nuñez notified and ordered 500 ml saline bolus x1 and to shorten patient treatment to 2 hours. See flowsheet for additional information. CVC functioned well at BFR 350. Post BP- 146/86, 80. Post Weight-79.9kg Bed scale shows removal of 0.2 kg Report given to primary RN. Authorizing ProviderResult TypeResult StatusDariver Nuñez MDDIALYSIS ORDERABLES Edited Result - Final * (ABNORMAL) Bedside Glucose *Place/Obtain serum glucose if >500 per glucometer. (03/24/2025 2:32 PM EST) Only the most recent of12 resultswithin the time period is included. ComponentValueRef RangeTest MethodAnalysis TimePerformed AtPathologist Signature Bedside Glucose (POC)133(H)65 - 99 mg/dL03/24/2025 2:37 PM [facility] LABORATORYSpecimen (Source)Anatomical Location / LateralityCollection Method / VolumeCollection TimeReceived Timearterial/dtywbusvt26/11/2025 2:32 PM EST 03/24/2025 2:37 PM EST Narrative Authorizing ProviderResult TypeResult StatusTaylmaritza Albert MDPOINT OF CARE TEST ORDERABLESFinal ResultPerforming OrganizationAddressCity/State/ZIP Code Phone Number [facility] [id number] [place] [address], [place] * Fluoroscopy swallow motility function (03/24/2025 10:41 AM EST) Only the most recent of2 resultswithin the time period is included. Anatomical RegionLateralityModalityChest, Abdomen, BodyRadio FluoroscopySpecimen (Source)Anatomical Location / LateralityCollection Method / VolumeCollection TimeReceived Time03/24/2025 2:14 PM EST Narrative 03/24/2025 2:15 [...] 2:15 PM Authorizing ProviderResult TypeResult StatusTaylor Trey GRAMAJO FLUOROSCOPY ORDERABLESFinal Result * (ABNORMAL) CBC auto differential (03/24/2025 5:47 AM EST) Only the most recent of15 resultswithin the time period is included. ComponentValueRef RangeTest MethodAnalysis TimePerformed AtPathologist Signature WBC4.54 - 11 10^9/L1/02/2025 6:46 AM [facility] LABORATORYRBC Count2.33(L)4.1 - 5.7 10^12/L105/25/2024 6:46 AM [facility] LABORATORYHemoglobin7.4(L)13 - 17 g/dL03/24/2025 6:46 AM [facility] JOYREZFZAHQwcoolqaog22.9(L)39 - 50 %03/24/2025 6:46 AM [facility] [id number] - 100 fL03/24/2025 6:46 AM [facility] QTNKHFKFECANY42.927 - 34 pg03/24/2025 6:46 AM [facility] INFKGJKYPKLIZC94.832 - 36 g/dL03/24/2025 6:46 AM [facility] SJMBISFMKNQXX70.5(H)11.5 - 15 %03/24/2025 6:46 AM [facility] LABORATORYPlatelet [id number] - 450 10^9L105/25/2024 6:46 AM [facility] LABORATORYMPV6.9(L)7 - 12 fL03/24/2025 6:46 AM [facility] LABORATORYNeutrophils %64.1%03/24/2025 6:46 AM [facility] LABORATORYLymphocytes %18.4%03/24/2025 6:46 AM [facility] LABORATORYMonocytes %8.0%03/24/2025 6:46 AM [facility] LABORATORYEosinophils %8.3%03/24/2025 6:46 AM [facility] LABORATORYBasophils %1.2%03/24/2025 6:46 AM [facility] LABORATORYNeutrophils Absolute (A)2.91.5 - 6.6 10^9/L105/25/2024 6:46 AM EST [facility] LABORATORYLymphocytes Absolute0.8(L)1.0 - 3.5 10^9/L 03/24/2025 6:46 AM [facility] LABORATORYMonocytes Absolute0.4 0.0 - 0.9 10^9/L105/25/2024 6:46 AM [facility] Eosinophils Absolute0.40.0 - 0.4 10^9/L105/25/2024 6:46 AM [facility] LABORATORYBasophils Absolute0.10.0 - 0.2 10^9/L105/25/2024 6:46 AM EST [facility] LABORATORYDifferential TypeAUTOMATED DIFFERENTIAL 03/24/2025 6:46 AM [facility] LABORATORYSpecimen (Source) Anatomical Location / LateralityCollection Method / VolumeCollection Time Received TimeBloodVenous blood / UnknownVenipuncture / Jeeyfrc2403/24/2025 5:47 AM EST03/24/2025 6:32 AM EST Narrative Authorizing ProviderResult TypeResult StatusRujanie Mccabe MDLAB BLOOD ORDERABLES Final ResultPerforming OrganizationAddressCity/State/ZIP CodePhone Number [facility] [address] [place] [address], * CK Total (03/24/2025 5:47 AM EST) Only the most recent of3 resultswithin the time period is included. ComponentValueRef RangeTest MethodAnalysis TimePerformed AtPathologist Signature GWX6792 - 195 U/L105/25/2024 7:06 AM [facility] Specimen (Source)Anatomical Location / LateralityCollection Method / Volume Collection TimeReceived TimeBloodVenous blood / UnknownVenipuncture / Unknown 03/24/2025 5:47 AM EST03/24/2025 6:32 AM EST Narrative Authorizing ProviderResult TypeResult StatusTrena Sanford APRN-CNPLAB BLOOD ORDERABLESFinal ResultPerforming OrganizationAddressCity/State/ZIP CodePhone Number [facility] [address] [place] [address], * (ABNORMAL) Comprehensive metabolic panel (03/24/2025 5:47 AM EST) Only the most recent of14 resultswithin the time period is included. ComponentValueRef RangeTest MethodAnalysis TimePerformed AtPathologist Signature BAOITP550(H)134 - 146 mmol/L105/25/2024 7:06 AM [facility] LABORATORYPOTASSIUM4.63.5 - 5.0 mmol/L105/25/2024 7:06 AM [facility] ESEYAQBZOMOOLOGTYE532(H)98 - 109 mmol/L105/25/2024 7:06 AM [facility] LABORATORYCARBON TPVLIIA5425 - 32 mmol/L105/25/2024 7:06 AM EST [facility] LABORATORYANION GAP75 - 15 mmol/L105/25/2024 7:06 AM EST [facility] LABORATORYBLOOD UREA EYPSDZAF87(H)5 - 27 mg/dL 03/24/2025 7:06 AM [facility] LABORATORYCREATININE2.22(H)0.60 - 1.30 mg/dL03/24/2025 7:06 AM [facility] LABORATORYComment: METHOD TRACEABLE TO IDMS SCBTCYAADFMYJGS596(H)65 - 99 mg/dL03/24/2025 7:06 AM [facility] LABORATORYCALCIUM9.38.5 - 10.5 mg/dL03/24/2025 7:06 AM [facility] LABORATORYTOTAL PROTEIN6.36.0 - 8.0 g/dL 03/24/2025 7:06 AM [facility] LABORATORYALBUMIN3.43.2 - 5.3 g/dL03/24/2025 7:06 AM [facility] LABORATORYALKALINE UDQIYZOGPHK194(H)39 - 130 U/L105/25/2024 7:06 AM [facility] IEXIMDUBAMLEP90<=41 U/L105/25/2024 7:06 AM [facility] ALT8<=40 U/L105/25/2024 7:06 AM [facility] BILIRUBIN,TOTAL0.60.3 - 1.2 mg/dL03/24/2025 7:06 AM [facility] LABORATORYEGFR Non-Race Ztcccfgfc26(L)>=60 ml/min/1.73sq.m105/25/2024 7:06 AM EST [facility] LABORATORYComment: Reported eGFR is based on the CKD-EPI 2020 equation that does not use a race coefficient. Specimen (Source)Anatomical Location / LateralityCollection Method / Volume Collection TimeReceived TimeBloodVenous blood / UnknownVenipuncture / Unknown 03/24/2025 5:47 AM EST03/24/2025 6:32 AM EST Narrative Authorizing ProviderResult TypeResult StatusEzio ARCHIBALD BLOOD ORDERABLES Final ResultPerforming OrganizationAddressCity/State/ZIP CodePhone Number [facility] [address] [place] [address], * Hemodialysis inpatient (03/23/2025 12:34 PM EST) Narrative Summer Rosenbaum RN - 03/23/2025 12:34 PM EST Summer Rosenbaum RN 03/23/2025 12:38 PM Dialysis held today per nephrology Dr. Nuñez Authorizing ProviderResult TypeResult StatusBrijesh Nuñez MDDIALYSIS ORDERABLES Final Result * Magnesium (03/23/2025 6:04 AM EST) Only the most recent of12 resultswithin the time period is included. ComponentValueRef RangeTest MethodAnalysis TimePerformed AtPathologist Signature MAGNESIUM2.01.8 - 2.6 mg/dL03/23/2025 7:01 AM [facility] LABORATORYSpecimen (Source)Anatomical Location / LateralityCollection Method / VolumeCollection TimeReceived TimeBloodVenous blood / UnknownVenipuncture / Rmtkrpq4003/23/2025 6:04 AM EST03/23/2025 6:29 AM EST Narrative Authorizing ProviderResult TypeResult StatusRicarda ARCHIBALD BLOOD ORDERABLES Final ResultPerforming OrganizationAddressCity/State/ZIP CodePhone Number [facility] [address] [place] [address], * CT abdomen and pelvis without contrast [...] PM Authorizing ProviderResult TypeResult StatusRazi U Joselo SUTTONG CT ORDERABLESFinal Result * Transfuse RBC:1 Unit (03/22/2025 12:07 PM EST) Narrative Authorizing ProviderResult TypeResult StatusDustin Albaro HELMET HAT BRIM CUTTER-CNPBLOOD TRANSFUSION ORDERABLESFinal Result * (ABNORMAL) Occult blood x 1, stool (03/22/2025 11:59 AM EST)ComponentValueRef RangeTest MethodAnalysis TimePerformed AtPathologist SignatureFECAL OCCULT BLOODPositive(A)Ehlootwq32/09/2025 1:13 PM [facility] LABORATORYSpecimen (Source)Anatomical Location / LateralityCollection Method / VolumeCollection TimeReceived TimeStoolFeces / Dexsqys3603/22/2025 11:59 AM EST 03/22/2025 12:10 PM EST Narrative Authorizing ProviderResult TypeResult StatusDustin Albaro HELMET HAT BRIM CUTTER-CNPBODY FLUIDS AND STOOLS ORDERABLESFinal ResultPerforming OrganizationAddressCity/State/ZIP CodePhone Number [facility] [address] [place] [address], * ABO Rh Repeat (03/22/2025 7:52 AM EST) Only the most recent of2 resultswithin the time period is included. Specimen (Source)Anatomical Location / LateralityCollection Method / Volume Collection TimeReceived Time03/22/2025 7:52 AM EST Narrative Authorizing ProviderResult TypeResult StatusJessica [place] [facility] DOBLOOD BANK TEST ORDERABLESFinal ResultPerforming OrganizationAddressCity/State/ZIP Code Phone Number [facility] * Crossmatch RBC:Number of Units: 1 (03/22/2025 7:00 AM EST)ComponentValueRef RangeTest MethodAnalysis TimePerformed AtPathologist SignatureBlood component [id number] BANK - WELLSKYUnit [id number] BANK - WELLSKY Unit ABOOBLOOD BANK - WELLSKYUnit RHPOSBLOOD BANK - WELLSKYCrossmatch CompatibleBLOOD BANK - WELLSKYStatus of unitTRANSFUSEDBLOOD BANK - WELLSKY Expiration [id number] BANK - WELLSKYBB Type Zpdyndy2746MKGPA BANK - WELLSKYSpecimen (Source)Anatomical Location / LateralityCollection Method / VolumeCollection TimeReceived TimeBloodVenous blood / Wbewcrv1403/22/2025 7:00 AM EST03/22/2025 7:24 AM EST Narrative Authorizing ProviderResult TypeResult StatusDustin Albaro HELMET HAT BRIM CUTTER-CNPBLOOD BANK PRODUCT ORDERABLESEdited Result - FinalPerforming OrganizationAddress City/State/ZIP CodePhone Number [facility] - [place] * Lavender Top (03/22/2025 7:00 AM EST) Only the most recent of2 resultswithin the time period is included. ComponentValueRef RangeTest MethodAnalysis TimePerformed AtPathologist Signature Extra TubeAuto Vpalwqiq51/09/2025 8:01 AM [facility] Specimen (Source)Anatomical Location / LateralityCollection Method / Volume Collection TimeReceived TimeBloodVenous blood / Tofyrcx1703/22/2025 7:00 AM EST 03/22/2025 7:13 AM EST Narrative Authorizing ProviderResult TypeResult StatusTaylor Trey Albert [facility] BLOOD ORDERABLESFinal ResultPerforming OrganizationAddressty/State/ZIP CodePhone Number [facility] [address] [place] [address], * (ABNORMAL) Iron and TIBC (03/22/2025 7:00 AM EST) Only the most recent of2 resultswithin the time period is included. ComponentValueRef RangeTest MethodAnalysis TimePerformed AtPathologist Signature IRON40(L)50 - 212 ug/dL03/22/2025 7:52 AM [facility] IRON HCGYTWC483(L)250 - 425 ug/dL03/22/2025 7:52 AM [facility] LABORATORYIRON VYEENEBODW6872 - 50 % QWSAITZXDV72/09/2025 7:52 AM [facility] LABORATORYSpecimen (Source)Anatomical Location / Laterality Collection Method / VolumeCollection TimeReceived TimeBloodVenous blood / UnknownVenipuncture / Cfbhkih1603/22/2025 7:00 AM EST03/22/2025 7:13 AM EST Narrative Authorizing ProviderResult TypeResult StatusDustbrodie Irvin APRN-CNPLAB BLOOD ORDERABLESFinal ResultPerforming OrganizationAddress[facility]/State/ZIP CodePhone Number [facility] [address] [place] [address], * Type and screen(includes indirect bryce) (03/22/2025 7:00 AM EST)Component ValueRef RangeTest MethodAnalysis TimePerformed AtPathologist SignatureABOO 03/22/2025 7:59 AM ESTTTH BB - CMSJNCJBPQtjfecda54/09/2025 7:59 AM ESTTTH BB - WELLSKYAntibody BczkqnSllcbwxm79/09/2025 7:59 AM ESTTTH BB - WELLSKYSpecimen (Source)Anatomical Location / LateralityCollection Method / VolumeCollection TimeReceived TimeBloodVenous blood / UnknownVenipuncture / Wyuunoe9003/22/2025 7:00 AM EST03/22/2025 7:02 AM EST Narrative Authorizing ProviderResult TypeResult StatusDustin Albaro HELMET HAT BRIM CUTTER-CNPBLOOD BANK TEST ORDERABLESEdited Result - FinalPerforming OrganizationAddressCity/State/ZIP CodePhone Number [facility] [address] [place] [address], [place] * Folate (03/22/2025 7:00 AM EST) Only the most recent of2 resultswithin the time period is included. ComponentValueRef RangeTest MethodAnalysis TimePerformed AtPathologist Signature FOLIC ACID17.6>5.8 ng/mL03/22/2025 8:34 AM [facility] LABORATORYSpecimen (Source)Anatomical Location / LateralityCollection Method / VolumeCollection TimeReceived TimeBloodVenous blood / UnknownVenipuncture / Xtaawqu2103/22/2025 7:00 AM EST03/22/2025 7:13 AM EST Narrative Authorizing ProviderResult TypeResult StatusTaylor Trey ARCHIBALD BLOOD ORDERABLESFinal ResultPerforming OrganizationAddressCity/State/ZIP CodePhone Number [facility] [address] [place] [address], [place] [phone] * (ABNORMAL) Ferritin (03/22/2025 7:00 AM EST) Only the most recent of2 resultswithin the time period is included. ComponentValueRef RangeTest MethodAnalysis TimePerformed AtPathologist Signature VBAXHCKG576(H)24 - 336 ng/mL03/22/2025 8:30 AM [facility] LABORATORYSpecimen (Source)Anatomical Location / LateralityCollection Method / VolumeCollection TimeReceived TimeBloodVenous blood / UnknownVenipuncture / Kyobepp7603/22/2025 7:00 AM EST03/22/2025 7:13 AM EST Narrative Authorizing ProviderResult TypeResult StatusTaylor Trey ARCHIBALD BLOOD ORDERABLESFinal ResultPerforming OrganizationAddressCity/State/ZIP CodePhone Number [facility] [address] [place] [address], * Vitamin B12 (03/22/2025 7:00 AM EST) Only the most recent of2 resultswithin the time period is included. ComponentValueRef RangeTest MethodAnalysis TimePerformed AtPathologist Signature VITAMIN [id number] - 914 pg/mL03/22/2025 8:35 AM [facility] LABORATORYSpecimen (Source)Anatomical Location / LateralityCollection Method / VolumeCollection TimeReceived TimeBloodVenous blood / UnknownVenipuncture / Ydrizvl5403/22/2025 7:00 AM EST03/22/2025 7:13 AM EST Narrative Authorizing ProviderResult TypeResult StatusTaylor Trey ARCHIBALD BLOOD ORDERABLESFinal ResultPerforming OrganizationAddressCity/State/ZIP CodePhone Number [facility] [address] [place] [address], * Troponin I, High Sensitivity 1 Hour (03/21/2025 5:08 PM EST) Only the most recent of4 resultswithin the time period is included. ComponentValueRef RangeTest MethodAnalysis TimePerformed AtPathologist Signature TROPONIN I, HIGH YIARNSLOKET95<21 ng/L105/22/2024 6:38 PM [facility] LABORATORYSpecimen (Source)Anatomical Location / LateralityCollection Method / VolumeCollection TimeReceived TimeBloodVenous blood / Unknown Venipuncture / Sneogjy9003/21/2025 5:08 PM EST03/21/2025 5:59 PM EST Narrative Authorizing ProviderResult TypeResult StatusTaylor Trey ARCHIBALD BLOOD ORDERABLESFinal ResultPerforming OrganizationAddressCity/State/ZIP CodePhone Number [facility] [address] [place] [address], * ECG 12 Lead (03/21/2025 3:44 PM EST) Only the most recent of4 resultswithin the time period is included. Specimen (Source)Anatomical Location / LateralityCollection Method / Volume Collection TimeReceived Time03/21/2025 3:44 PM EST Narrative TRACEMASTERVUE - 03/22/2025 8:33 AM EST Authorizing ProviderResult TypeResult StatusTaylor Trey Albert MDECG ORDERABLES Final ResultPerforming OrganizationAddressCity/State/ZIP CodePhone Number TRACEMASTERVUE * Troponin I, High Sensitivity 0 Hour (03/21/2025 3:18 PM EST) Only the most recent of4 resultswithin the time period is included. ComponentValueRef RangeTest MethodAnalysis TimePerformed AtPathologist Signature TROPONIN I, HIGH UJVVBFRLCBB19<21 ng/L105/22/2024 4:00 PM [facility] LABORATORYSpecimen (Source)Anatomical Location / LateralityCollection Method / VolumeCollection TimeReceived TimeBloodVenous blood / Unknown Venipuncture / Ydahldz1103/21/2025 3:18 PM EST03/21/2025 3:26 PM EST Narrative Authorizing ProviderResult TypeResult StatusTaylmaritza Albert [facility]CPH[facility] BLOOD ORDERABLESFinal ResultPerforming OrganizationAddressCity/State/ZIP CodePhone Number [facility] [address] [place] [address], * Hemodialysis inpatient (03/21/2025 2:30 PM EST) [...] obtain post weight Authorizing ProviderResult TypeResult StatusDanial Nuñez MDDIALYSIS ORDERABLES Final Result * Blood culture #2 (03/19/2025 6:49 AM EST) Only the most recent of8 resultswithin the time period is included. ComponentValueRef RangeTest MethodAnalysis TimePerformed AtPathologist Signature CULTURE RESULTSNO GROWTH 5 DAYS03/24/2025 8:02 AM [facility] LABORATORYSpecimen (Source)Anatomical Location / LateralityCollection Method / VolumeCollection TimeReceived TimeBloodVenous blood / UnknownVenipuncture / Ahavbcz4703/19/2025 6:49 AM EST03/19/2025 7:01 AM EST Narrative [facility] - 03/24/2025 8:02 AM EST Suboptimal volume of blood collected, Results may be affected. Authorizing ProviderResult TypeResult StatusMaram Fany Tracy MDMICROBIOLOGY - GENERAL ORDERABLESFinal ResultPerforming OrganizationAddressCity/State/ZIP CodePhone Number [facility] [address] [place] [address], * X-ray chest 1 view (03/19/2025 4:52 AM EST) Only the most recent of4 resultswithin the time period is included. Anatomical RegionLateralityModalityBody, ChestN/AComputed RadiographySpecimen (Source)Anatomical Location / LateralityCollection Method [...] on 03/19/2025 5:03 AM Authorizing ProviderResult TypeResult Nicolás GRAMAJO DIAGNOSTIC IMAGING ORDERABLESFinal Result * Cortisol (03/18/2025 2:24 PM EST)ComponentValueRef RangeTest MethodAnalysis TimePerformed AtPathologist SignatureCORTISOL, TOTAL17.2ug/dL03/18/2025 3:25 PM [facility] LABORATORYSpecimen (Source)Anatomical Location / LateralityCollection Method / VolumeCollection TimeReceived TimeBloodVenous blood / Iynrzbi5803/18/2025 2:24 PM EST03/18/2025 2:42 PM EST Narrative [facility] - 03/18/2025 3:25 PM EST Due to the diurnal variation of cortisol levels in normal subjects, all cortisol measurments should be referenced to the time of day of sample collection. AM Cortisol Age>=6 6.7-22.4 ug/dL PM Cortisol Age>=6 <10 ug/dL Authorizing ProviderResult TypeResult Dominick OLMEDO BLOOD ORDERABLESFinal ResultPerforming OrganizationAddressCity/State/ZIP CodePhone Number [facility] [address] [place] [address], [place] [phone] * Hemodialysis inpatient (03/18/2025 11:02 AM EST) [...] no fluid removal Authorizing ProviderResult TypeResult StatusDanial Nuñez MDDIALYSIS ORDERABLES Final Result * (ABNORMAL) Hemoglobin (03/18/2025 5:03 AM EST)ComponentValueRef RangeTest MethodAnalysis TimePerformed AtPathologist SignatureHemoglobin7.4(L)13 - 17 g/dL03/18/2025 5:28 AM [facility] LABORATORYSpecimen (Source) Anatomical Location / LateralityCollection Method / VolumeCollection Time Received TimeBloodVenous blood / Amwmsoh9403/18/2025 5:03 AM EST03/18/2025 5:11 AM EST Narrative Authorizing ProviderResult TypeResult StatusElvira ARCHIBALD BLOOD ORDERABLES Final ResultPerforming OrganizationAddressCity/State/ZIP CodePhone Number [facility] [address] [place] [address], * (ABNORMAL) Procalcitonin (03/18/2025 2:03 AM EST)ComponentValueRef RangeTest MethodAnalysis TimePerformed AtPathologist VebpglqyyFJGYCTPULKITF98.33(H)<0.05 ng/mL03/18/2025 7:56 AM [facility] LABORATORYSpecimen (Source)Anatomical Location / LateralityCollection Method / VolumeCollection TimeReceived TimeBloodVenous blood / Qlxsell8103/18/2025 2:03 AM EST03/18/2025 2:16 AM EST Narrative [facility] - 03/18/2025 7:56 AM EST <0.50 ng/mL - Low risk of severe sepsis and/or septic shock. <2.00 ng/mL - Recommend retesting within 6-24 hours. >2.00 ng/mL - High risk of sepsis and/or septic shock. Authorizing ProviderResult TypeResult StatusJasper ARCHIBALD BLOOD ORDERABLESFinal ResultPerforming OrganizationAddressCity/State/ZIP CodePhone Number [facility] [address] [place] [address], * Ionized magnesium (03/17/2025 11:36 AM EST)ComponentValueRef RangeTest Method Analysis TimePerformed AtPathologist SignatureIONIZED MAGNESIUM0.650.45 - 0.74 mmol/L105/18/2024 12:07 PM [facility] LABORATORYSpecimen (Source)Anatomical Location / LateralityCollection Method / VolumeCollection TimeReceived TimeBloodVenous blood / Ogusboc8803/17/2025 11:36 AM EST03/17/2025 11:46 AM EST Narrative Authorizing ProviderResult TypeResult StatusSumti ARCHIBALD BLOOD ORDERABLESFinal ResultPerforming OrganizationAddressCity/State/ZIP CodePhone Number [facility] [address] [place] [address], * Potassium (03/17/2025 6:27 AM EST)ComponentValueRef RangeTest MethodAnalysis TimePerformed AtPathologist SignaturePOTASSIUM4.33.5 - 5.0 mmol/L105/18/2024 7:05 AM [facility] LABORATORYSpecimen (Source)Anatomical Location / LateralityCollection Method / VolumeCollection TimeReceived Time BloodVenous blood / Brxouqo6003/17/2025 6:27 AM EST03/17/2025 6:38 AM EST Narrative Authorizing ProviderResult TypeResult StatusSumit ARCHIBALD BLOOD ORDERABLESFinal ResultPerforming OrganizationAddressCity/State/ZIP CodePhone Number [facility] [address] [place] [address], * Hemodialysis inpatient (03/16/2025 5:32 PM EST) Narrative Adriane Shen RN - 03/16/2025 5:32 PM EST Adriane Shen RN 03/16/2025 5:34 PM Pt dialyzed for 3 hours with a net gain of 0.1kg Pre wt 83.6kg Poist wt 83.7kg Access functioned well at ordered pump speed. Vancomycin was given at last hour. ??Primary nurse, En, will give arenesp. Authorizing ProviderResult TypeResult StatusBrijesh Nuñez MDDIALYSIS ORDERABLES Final Result * Mrsa Pcr nasal swab (03/16/2025 7:48 AM EST)ComponentValueRef RangeTest Method Analysis TimePerformed AtPathologist SignatureMRSA PCR NASALNegativeNegative 03/16/2025 9:59 AM [facility] LABORATORYSpecimen (Source) Anatomical Location / LateralityCollection Method / VolumeCollection Time Received TimeSwabStructure of anterior naris / Facbqqj4203/16/2025 7:48 AM EST 03/16/2025 8:46 AM EST Narrative Authorizing ProviderResult TypeResult Anjelica Mccabe MDMICROBIOLOGY - GENERAL ORDERABLESFinal ResultPerforming OrganizationAddressCity/State/ZIP Code Phone Number [facility] [address] [place] [address], [place] [phone] * S Pneumoniae AG, urine (03/16/2025 7:48 AM EST)ComponentValueRef RangeTest MethodAnalysis TimePerformed AtPathologist SignatureS PNEUMONIAE AG UNegative Goefinoa22/03/2025 10:25 AM [facility] LABORATORYSpecimen (Source)Anatomical Location / LateralityCollection Method / VolumeCollection TimeReceived TimeUrineUrine / Gksmdvj7003/16/2025 7:48 AM EST03/16/2025 9:20 AM EST Narrative Authorizing ProviderResult TypeResult Anjelica Mccabe MDURINE ORDERABLES Final ResultPerforming OrganizationAddressCity/State/ZIP CodePhone Number [facility] [address] [place] [address], [place] [phone] * Resp Pathogens Panel/SARS CoV-2 (03/16/2025 7:48 AM EST)ComponentValueRef RangeTest MethodAnalysis TimePerformed AtPathologist SignatureSARS COV 2 BY PCRNot DetectedNot Znrydyao31/03/2025 9:49 AM [facility] LABORATORYADENOVIRUSNot DetectedNot Xwtmwpej66/03/2025 9:49 AM [facility] LABORATORYCORONAVIRUS 229ENot DetectedNot Ikvjvalj04/03/2025 9:49 AM [facility] LABORATORYCORONAVIRUS IHS8Skk DetectedNot Nsikkvbk60/03/2025 9:49 AM [facility] LABORATORYCORONAVIRUS ZC47Biw DetectedNot Kytgmkpo72/03/2025 9:49 AM [facility] LABORATORYCORONAVIRUS II48Xhg DetectedNot Mwcdfhgp06/03/2025 9:49 AM [facility] LABORATORYHUMAN METAPNEUVIRUSNot DetectedNot Detected 03/16/2025 9:49 AM [facility] LABORATORYRHINO/ENTEROVIRUSNot DetectedNot Btwyolrn08/03/2025 9:49 AM [facility] INFLUENZA ANot DetectedNot Dcmlhlim48/03/2025 9:49 AM [facility] LABORATORYINFLUENZA BNot DetectedNot Fyatwixr04/03/2025 9:[address] [facility] LABORATORYPARAINFLUENZA 1Not DetectedNot Detected 03/16/2025 9:49 AM [facility] LABORATORYPARAINFLUENZA 2Not DetectedNot Mxsbqwfm39/03/2025 9:49 AM [facility] PARAINFLUENZA 3Not DetectedNot Qlgwyycd63/03/2025 9:49 AM [facility] LABORATORYPARAINFLUENZA 4Not DetectedNot Rfaesenn95/03/2025 9:[address] [facility] LABORATORYRESP SYNCYTIAL VIRUSNot DetectedNot Ppqclpwd81/03/2025 9:49 AM [facility] LABORATORYBORD PARAPERTUSSISNot DetectedNot Nwbkulpp30/03/2025 9:49 AM [facility] LABORATORYBORDETELLA PERTUSSISNot DetectedNot Xwswrfqu49/03/2025 9:49 AM [facility] LABORATORYCHLAM.PNEUMONIAENot DetectedNot Gkiyohej19/03/2025 9:49 AM [facility] LABORATORYMYCOPLASMA PNEUMONIAENot DetectedNot Anbxukbj10/03/2025 9:49 AM [facility] LABORATORYSpecimen (Source)Anatomical Location / LateralityCollection Method / VolumeCollection TimeReceived TimeSwabNasopharyngeal structure / Fvzhrzh9803/16/2025 7:48 AM EST03/16/2025 8:46 AM EST Narrative [facility] - 03/16/2025 9:49 AM EST The [employer] Respiratory Panel 2.1 (RP2.1) is [...] respiratory tract infection. Authorizing ProviderResult TypeResult StatusRupesh Ramtel MDMICROBIOLOGY - GENERAL ORDERABLESFinal ResultPerforming OrganizationAddressCity/State/ZIP Code Phone Number [facility] [address] [place] [address], * Legionella antigen, urine (03/16/2025 7:48 AM EST)ComponentValueRef RangeTest MethodAnalysis TimePerformed AtPathologist SignatureLEGIONELLA URINE AG Negative, No L. pneumophila serogroup 1 AntigenNegative, No L. pneumophila serogroup 1 Ietgvqe8603/16/2025 10:25 AM [facility] Specimen (Source)Anatomical Location / LateralityCollection Method / Volume Collection TimeReceived TimeUrineUrine / Tmnfeij8103/16/2025 7:48 AM EST 03/16/2025 9:20 AM EST Narrative Authorizing ProviderResult TypeResult StatusRujanie Mccabe MDURINE ORDERABLES Final ResultPerforming OrganizationAddressCity/State/ZIP CodePhone Number [facility] [address] [place] [address], * Salas Top On Ice (03/16/2025 5:38 AM EST)ComponentValueRef RangeTest Method Analysis TimePerformed AtPathologist SignatureExtra TubeAuto Resulted 03/16/2025 7:01 AM [facility] LABORATORYSpecimen (Source) Anatomical Location / LateralityCollection Method / VolumeCollection Time Received TimeBloodVenous blood / Vwugpwo3803/16/2025 5:38 AM EST03/16/2025 5:48 AM EST Narrative Authorizing ProviderResult TypeResult StatusDavid Fritz DOLAB BLOOD ORDERABLES Final ResultPerforming OrganizationAddressCity/State/ZIP CodePhone Number [facility] [address] [place] [address], * Lavender Top (03/16/2025 5:38 AM EST)ComponentValueRef RangeTest Method Analysis TimePerformed AtPathologist SignatureExtra TubeAuto Resulted 03/16/2025 7:01 AM [facility]YSpecimen (Source) Anatomical Location / LateralityCollection Method / VolumeCollection Time Received TimeBloodVenous blood / Jiykuoe9103/16/2025 5:38 AM EST03/16/2025 5:48 AM EST Narrative Authorizing ProviderResult TypeResult StatusDavid Fritz DOLAB BLOOD ORDERABLES Final ResultPerforming OrganizationAddressCity/State/ZIP CodePhone Number [facility] [address] [place] [address], * PST TOP (03/16/2025 5:38 AM EST)ComponentValueRef RangeTest MethodAnalysis TimePerformed AtPathologist SignatureExtra TubeAuto Prrsymor54/03/2025 7:01 AM [facility]YSpecimen (Source)Anatomical Location / LateralityCollection Method / VolumeCollection TimeReceived TimeBloodVenous blood / Vmfgwtg3003/16/2025 5:38 AM EST03/16/2025 5:48 AM EST Narrative Authorizing ProviderResult TypeResult StatusDavid Fritz DOLAB BLOOD ORDERABLES Final ResultPerforming OrganizationAddressCity/State/ZIP CodePhone Number [facility] [address] [place] [address], * Light Blue Top (03/16/2025 5:38 AM EST)ComponentValueRef RangeTest Method Analysis TimePerformed AtPathologist SignatureExtra TubeAuto Resulted 03/16/2025 7:01 AM [facility]pecimen (Source) Anatomical Location / LateralityCollection Method / VolumeCollection Time Received TimeBloodVenous blood / Byivbsd9503/16/2025 5:38 AM EST03/16/2025 5:48 AM EST Narrative Authorizing ProviderResult TypeResult StatusDavid Fritz DOLAB BLOOD ORDERABLES Final ResultPerforming OrganizationAddressCity/State/ZIP CodePhone Number [facility] [address] [place] [address], * (ABNORMAL) B-type natriuretic peptide (03/16/2025 5:38 AM EST)ComponentValue Ref RangeTest MethodAnalysis TimePerformed AtPathologist TlqehzdcrENO279(H) <=100 pg/mL03/16/2025 8:11 AM [facility]YSpecimen (Source)Anatomical Location / LateralityCollection Method / VolumeCollection TimeReceived TimeBloodVenous blood / Hnxyrih9103/16/2025 5:38 AM EST03/16/2025 5:48 AM EST Narrative Authorizing ProviderResult TypeResult StatusRupesh Ramtel MDLAB BLOOD ORDERABLES Final ResultPerforming OrganizationAddressCity/State/ZIP CodePhone Number [facility] [address] [place] [address], [place] [phone] * Critical Care (03/16/2025 5:20 AM EST) Narrative Aurelio Fritz DO - 03/16/2025 5:20 AM EST Aurelio [...] TypeResult StatusDavid Fritz DOPROCEDURE/MINOR SURGICAL ORDERABLESFinal Result * Lactate w/ Reflex (03/16/2025 2:40 AM EST) Only the most recent of3 resultswithin the time period is included. ComponentValueRef RangeTest MethodAnalysis TimePerformed AtPathologist Signature LACTATE W/REFLEX1.10.4 - 2.0 mmol/L105/17/2024 3:00 AM ESTPROM[facility]ITALpecimen (Source)Anatomical Location / LateralityCollection Method / VolumeCollection TimeReceived TimeBloodVenous blood / Unknown Venipuncture / Zbfpziu3103/16/2025 2:40 AM EST03/16/2025 2:40 AM EST Narrative [facility] - 03/16/2025 3:00 AM EST Result did not trigger repeat Lactate, re-order if needed. Authorizing ProviderResult TypeResult StatusJohn ARCHIBALD BLOOD ORDERABLES Final ResultPerforming OrganizationAddressCity/State/ZIP CodePhone Number [address] [address], [place] * SST TOP (03/16/2025 1:35 AM EST)ComponentValueRef RangeTest MethodAnalysis TimePerformed AtPathologist SignatureExtra TubeAuto Cbpcosoh07/03/2025 3:02 AM EST[facility] (Source)Anatomical Location / LateralityCollection Method / VolumeCollection TimeReceived TimeBloodVenous blood / Morbtas3403/16/2025 1:35 AM EST03/16/2025 1:39 AM EST Narrative Authorizing ProviderResult TypeResult StatusJohn ARCHIBALD BLOOD ORDERABLES Final ResultPerforming OrganizationAddressCity/State/ZIP CodePhone Number [address] [address], [place] * Light Blue Top (03/16/2025 1:35 AM EST)ComponentValueRef RangeTest Method Analysis TimePerformed AtPathologist SignatureExtra TubeAuto Resulted 03/16/2025 3:02 AM ESTPark[facility] (Source) Anatomical Location / LateralityCollection Method / VolumeCollection Time Received TimeBloodVenous blood / Jwyzfwy5503/16/2025 1:35 AM EST03/16/2025 1:39 AM EST Narrative Authorizing ProviderResult TypeResult Virgil ARCHIBALD BLOOD ORDERABLES Final ResultPerforming OrganizationAddressCity/State/ZIP CodePhone Number [address] [address], [place] * Critical Care (03/16/2025 12:57 AM EST) Narrative John Cantrell MD - 03/16/2025 12:57 AM EST John Cantrell MD 03/16/2025 5:59 AM Critical Care Performed by: John Cantrell MD Authorized by: John Cantrell MD ?? Critical care provider statement: ??Critical care time (minutes): ??35 ??Critical care start time: ??03/16/2025 12:57 AM ??Critical care time was exclusive of: ??Separately billable procedures and treating other patients ??Critical care was necessary to treat or prevent imminent or life-threatening deterioration of the following conditions: ??Cardiac failure, circulatory failure, WALL AND FLOOR TILER failure or compromise, dehydration, metabolic crisis, renal failure and sepsis ??Critical care was time spent personally by me on the following activities: ??Blood draw for specimens, development of treatment plan with patient or surrogate, evaluation of patient's response to treatment, examination of patient, interpretation of cardiac output measurements, obtaining history from patient or surrogate, ordering and review of laboratory studies, pulse oximetry, ordering and performing treatments and interventions, re-evaluation of patient's condition, review of old charts and vascular access procedures ??I assumed direction of critical care for this patient from another provider in my specialty: no ?Care discussed with: accepting provider at another facility ?? Authorizing ProviderResult TypeResult StatusRydomingo Cantrell MDPROCEDURE/MINOR SURGICAL ORDERABLESFinal Result * Central Line: R femoral (03/16/2025 12:57 AM EST) John Kim MD - 03/16/2025 12:57 AM EST John Cantrell MD 03/16/2025 5:59 AM Central Line: R femoral Performed by: John Cantrell MD Authorized by: John Cantrell MD ?? Consent: ??Consent obtained: ??Verbal ??Consent given by: ??Patient ??Risks, benefits, and alternatives were discussed: yes ?Risks discussed: ??Arterial puncture, bleeding, incorrect placement, infection, nerve damage and pneumothorax ??Alternatives discussed: ??No treatment and delayed treatment [place] protocol: ??Procedure explained and questions answered to patient or proxy's satisfaction: yes ?Relevant documents present and verified: yes ?Test results available: yes ?Imaging studies available: yes ?Required blood products, implants, devices, and special equipment available: yes ?Patient identity confirmed: ??Verbally with patient and arm band Pre-procedure details: ??Indication(s): central venous access and insufficient peripheral access ?Hand hygiene: Hand hygiene performed prior to insertion ?Sterile barrier technique: All elements of maximal sterile technique followed ?Skin preparation: ??Chlorhexidine ??Skin preparation agent: Skin preparation agent completely dried prior to procedure ?? Sedation: ??Sedation type: ??None Anesthesia: ??Anesthesia method: ??Local infiltration ??Local anesthetic: ??Lidocaine 1% w/o epi Procedure details: ??Location: ??R femoral ??Site selection rationale: ??No vascular surgery or Cardiothoracic surgery available for potential complications at alternative sites selection ??Patient position: ??Supine ??Procedural supplies: ??Triple lumen ??Catheter size: ??7 Fr ??Landmarks identified: yes ?Ultrasound guidance: yes ?Ultrasound guidance timing: real time ?Sterile ultrasound techniques: Sterile gel and sterile probe covers were used ?Number of attempts: ??1 ??Successful placement: yes ?? Post-procedure details: ??Post-procedure: ??Dressing applied and line sutured ??Assessment: ??Blood return through all ports and free fluid flow ??Procedure completion: ??Tolerated Authorizing ProviderResult TypeResult StatusRydomingo Cantrell MDPROCEDURE/MINOR SURGICAL ORDERABLESFinal Result * (ABNORMAL) Urinalysis (03/15/2025 5:51 PM EST)ComponentValueRef RangeTest MethodAnalysis TimePerformed AtPathologist SignatureCOLORYellowYellow 03/15/2025 7:[address] [facility]ITALTURBIDITYClearClear 03/15/2025 7:20 PM [facility]PECIFIC GRAVITY1.015 1.003 - 1.5183703/15/2025 7:[address] [facility]ITALNITRITE WuqygwbtEabfgqcf11/02/2025 7:[address] [facility] PH,URINE7.05.0 - 8.512 7:[address] [facility] LEUKOCYTE AKTUWAUKCzepdjmcGqmpfnhv07/02/2025 7:[address] [facility]ITALPROTEIN100 mg/dL(A)Eezmchjo29/02/2025 7:[address] [facility]OSPITALKETONES (URINE)LvvvlosiQozhyiaw16/02/2025 7:20 PM EST [facility]PITALUROBILINOGEN1.0 eu/dL0.2 eu/dL, 1.0 eu/dL 03/15/2025 7:20 PM ESTPROKAISER PERMANENTE MEDICAL CENTER SANTA ROSABILIRUBIN (URINE) MgobfdyhEasvnhqt10/02/2025 7:[address] [facility] BLOOD/HGBModerate(A)Jifrwlcz44/02/2025 7:[address] [facility]OSPITALR.B.CELLS19(H)0 - 7:20 PM ESTADENA HEALTH SYSTEMQUAMOUS QQEAZEOMCS69 - 7:[address] [facility]OSPITALW.B.CELLS30 - 7:[address] [facility] HOSPITALGLUCOSE (URINE)NegativeNegative, 250 mg/dL03/15/2025 7:20 PM [facility]ITALpecimen (Source)Anatomical Location / LateralityCollection Method / VolumeCollection TimeReceived TimeUrineUrine / Vpttxog3903/15/2025 5:51 PM EST03/15/2025 6:59 PM EST Narrative Authorizing ProviderResult TypeResult StatusGeovany Joseph MDURINE ORDERABLES Final ResultPerforming OrganizationAddressCity/State/ZIP CodePhone Number [facility] [address] [place] [address], * (ABNORMAL) Urine Culture Urine, Indwelling Catheter (03/15/2025 5:51 PM EST) Only the most recent of2 resultswithin the time period is included. ComponentValueRef RangeTest MethodAnalysis TimePerformed AtPathologist Signature CULTURE ALKNOSZ32,000-100,000 CFU/mL Enterococcus species(A)03/18/2025 8:20 AM [facility] LABORATORYComment: Ampicillin or Amoxicillin is the drug of choice for uncomplicated cystitis caused by enterococci. Cephalosporins are inappropriate. Specimen (Source)Anatomical Location / LateralityCollection Method / Volume Collection TimeReceived TimeUrine (Urine, Indwelling Catheter)03/15/2025 5:51 PM EST03/15/2025 6:59 PM EST Narrative OrganismAntibioticMethodSusceptibilityEnterococcus speciesAmpicillin >=32.0: Resistant Enterococcus speciesLevofloxacin >=8.0: Resistant Enterococcus speciesNitrofurantoin 32: Susceptible Enterococcus speciesVancomycin <=0.5: Susceptible Enterococcus speciesSusceptibility CommentAuthorizing ProviderResult TypeResult StatusTuckercortney Gomez Opal MDMICROBIOLOGY - GENERAL ORDERABLESFinal ResultPerforming OrganizationAddressCity/State/ZIP CodePhone Number [facility] [address] [place] [address], [place] [phone] * Thyroid profile includes TSH FT4 (03/15/2025 5:39 PM EST) Only the most recent of2 resultswithin the time period is included. ComponentValueRef RangeTest MethodAnalysis TimePerformed AtPathologist Signature FREE T41.040.61 - 1.60 ng/dL03/15/2025 6:28 PM ESTPROMEDICA FOSTORIA COMMUNITY HOSPITALTSH2.610.49 - 4.67 uIU/mL03/15/2025 6:28 PM ESTPROBellwood General Hospital (Source)Anatomical Location / LateralityCollection Method / VolumeCollection TimeReceived TimeBloodVenous blood / Unknown Venipuncture / Uphjypl1103/15/2025 5:39 PM EST03/15/2025 5:43 PM EST Narrative Authorizing ProviderResult TypeResult StatusGeovany Gomez Opal MDLAB BLOOD ORDERABLESFinal ResultPerforming OrganizationAddressCity/State/ZIP CodePhone Number [facility] [address] [place] [address], * (ABNORMAL) APTT (03/15/2025 5:39 PM EST)ComponentValueRef RangeTest Method Analysis TimePerformed AtPathologist TtvwogxwyDCDQ91(H)26 - 37 sec03/15/2025 5:56 PM ESTPROBellwood General Hospital (Source)Anatomical Location / LateralityCollection Method / VolumeCollection TimeReceived Time BloodVenous blood / UnknownVenipuncture / Irnovsm8803/15/2025 5:39 PM EST 03/15/2025 5:43 PM EST Narrative Authorizing ProviderResult TypeResult StatusGeovany Gomez Opal ARCHIBALD BLOOD ORDERABLESFinal ResultPerforming OrganizationAddressCity/State/ZIP CodePhone Number [address] [place] [address], [place] * (ABNORMAL) Protime & INR (03/15/2025 5:39 PM EST)ComponentValueRef RangeTest MethodAnalysis TimePerformed AtPathologist FuktpawwpLEUEROX98.3(H)9.8 - 13.2 sec03/15/2025 5:56 PM ESTPROKAISER PERMANENTE MEDICAL CENTER SANTA ROSAINR2.1(H)0.9 - 1.2 03/15/2025 5:56 PM ESTParkview Health (Source) Anatomical Location / LateralityCollection Method / VolumeCollection Time Received TimeBloodVenous blood / UnknownVenipuncture / Mnvnxgt4203/15/2025 5:39 PM EST03/15/2025 5:43 PM EST Narrative Authorizing ProviderResult TypeResult StatusGeovany Gomez Opal ARCHIBALD BLOOD ORDERABLESFinal ResultPerforming OrganizationAddressCity/State/ZIP CodePhone Number [address] [place] [address], [place] * Lipase (03/15/2025 5:39 PM EST)ComponentValueRef RangeTest MethodAnalysis Time Performed AtPathologist ExyypigfuYELYRI4234 - 40 U/L105/16/2024 6:04 PM EST [facility] (Source)Anatomical Location / LateralityCollection Method / VolumeCollection TimeReceived TimeBloodVenous blood / UnknownVenipuncture / Ayhgaol0403/15/2025 5:39 PM EST03/15/2025 5:43 PM EST Narrative Authorizing ProviderResult TypeResult StatusGeovany Gomez Opal ARCHIBALD BLOOD ORDERABLESFinal ResultPerforming OrganizationAddressCity/State/ZIP CodePhone Number [address] [place] [address], [place] * (ABNORMAL) Liver panel (03/15/2025 5:39 PM EST)ComponentValueRef RangeTest MethodAnalysis TimePerformed AtPathologist SignatureTOTAL PROTEIN7.66.0 - 8.0 g/dL03/15/2025 6:10 PM ESTPROMEDICA FOSTORIA COMMUNITY HOSPITALALBUMIN3.63.2 - 5.3 g/dL03/15/2025 6:10 PM ESTPROMEDICA FOST[facility]IA [facility] BILIRUBIN,TOTAL1.20.3 - 1.2 mg/dL03/15/2025 6:10 PM ESTPROMEDICA FOSTORIA COMMUNITY HOSPITALALKALINE OULUBKVMSPG624(H)39 - 130 U/L105/16/2024 6:10 PM EST [facility]OSPITALAST13<=41 U/L105/16/2024 6:10 PM EST [facility]ALT9<=40 U/L105/16/2024 6:10 PM ESTPROMEDICA FOSTORIA COMMUNITY HOSPITALBILIRUBIN,DIRECT0.4<=0.4 mg/dL03/15/2025 6:10 PM EST [facility] SYSTEMpecimen (Source)Anatomical Location / LateralityCollection Method / VolumeCollection TimeReceived TimeBloodVenous blood / UnknownVenipuncture / Klsogyj6203/15/2025 5:39 PM EST03/15/2025 5:43 PM EST Narrative Authorizing ProviderResult TypeResult StatusGeovany Joseph MDLAB BLOOD ORDERABLESFinal ResultPerforming OrganizationAddressCity/State/ZIP CodePhone Number [facility] [address] [place] [address], * (ABNORMAL) Basic Metabolic Panel (03/15/2025 5:39 PM EST)ComponentValueRef RangeTest MethodAnalysis TimePerformed AtPathologist OqsvbzcxfDYQMJZ113995 - 146 mmol/L105/16/2024 6:10 PM ESTPROKAISER PERMANENTE MEDICAL CENTER SANTA ROSAPOTASSIUM 4.03.5 - 5.0 mmol/L105/16/2024 6:10 PM ESTPROMEDICA [facility]IA [facility] HHVDQCHT72950 - 109 mmol/L105/16/2024 6:10 PM ESTPROMEDICA FOSTORIA COMMUNITY HOSPITALCARBON RZXVUTM6959 - 32 mmol/L105/16/2024 6:10 PM ESTPROKAISER PERMANENTE MEDICAL CENTER SANTA ROSAANION KCM726 - 15 mmol/L105/16/2024 6:10 PM ESTPROMEDICA FOSTORIA COMMUNITY HOSPITALBLOOD UREA TABMOTZM69(H)5 - 27 mg/dL03/15/2025 6:10 PM ESTPROMEDICA FOSTORIA COMMUNITY HOSPITALCREATININE3.13(H)0.70 - 1.20 mg/dL 03/15/2025 6:[address] [facility]OSPITALComment:METHOD TRACEABLE TO IDMS NWTWXIMUVPEKRHU287(H)65 - 99 mg/dL03/15/2025 6:10 PM EST [facility] HOSPITALCALCIUM9.28.5 - 10.5 mg/dL03/15/2025 6:10 PM ESTPROMEDICA FOSTORIA COMMUNITY HOSPITALEGFR Non-Race Dbcxeahom84(L)>=60 ml/min/1.73sq.m105/16/2024 6:[address] [facility] Comment: eGFR not reported due to non-numeric value for Creatinine. Reported eGFR is based on the CKD-EPI 2020 equation that does not use a race coefficient. Specimen (Source)Anatomical Location / LateralityCollection Method / Volume Collection TimeReceived TimeBloodVenous blood / UnknownVenipuncture / Unknown 03/15/2025 5:39 PM EST03/15/2025 5:43 PM EST Narrative Authorizing ProviderResult TypeResult StatusGeovany Joseph MDLAB BLOOD ORDERABLESFinal ResultPerforming OrganizationAddressCity/State/ZIP CodePhone Number [facility] [address] [place] [address], * ED NIHSS And Thrombolytic MD Screening (03/15/2025 5:28 PM EST) Narrative Geovany Joseph MD - 03/15/2025 5:28 PM EST Geovany Joseph MD 03/16/2025 1:38 AM ED NIHSS And Thrombolytic MD Screening Performed by: Geovany Joseph MD Authorized by: Geovany Joseph MD ?? Time NIHSS was performed: ??03/15/2025 5:05 PM LOC: 0 - Alert ?? LOC Questions: 0 - Answers both correctly ?? LOC Commands: 0 - Performs both tasks correctly ?? Best Gaze: 0 - Normal horizontal movements ?? Visual Ambrose: 0 - No visual field defect ?? Facial Movements: 1 - Minor facial weakness ?? Motor Function Right Arm: 0 - No drift right arm holds for 10 seconds ?? Motor Function Left Arm: 0 - No drift left arm holds for 10 seconds ?? Motor Function Right Le - No drift right leg holds for full 5 seconds ?? Motor Function Left Le - No drift left leg, holds for full 5 seconds ?? Limb Ataxia: 0 - No limb ataxia ?? Sensory: 0 - No sensory loss ?? Language: 0 - Language normal ?? Articulation: 0 - Articulation normal ?? Extinction or Inattention: 0 - Extinction or inattention absent ?? TOTAL NIHSS SCORE: ??1 Do presenting disabilities interfere with lifestyle(i.e. work, hobbies, entertainment etc.?: No ?? Other Contraindications: ??Low NIHSS with s/s that do not interfere with quality of life Decision for Thrombolytics: ??Thrombolytics will not be given based on the history and assessment of the patient. Authorizing ProviderResult TypeResult StatusGeovany Joseph MDPROCEDURE/MINOR SURGICAL ORDERABLESFinal Result * CT brain without contrast stroke alert (03/15/2025 5:15 PM EST)Anatomical RegionLateralityModalityNeuro, Head, Head and Neck, Neuro CoveraN/AComputed TomographySpecimen (Source)Anatomical Location / LateralityCollection Method / VolumeCollection TimeReceived Time03/15/2025 5:17 PM EST Narrative 03/15/2025 5:19 PM EST HISTORY: A 70-year-old male with a history of the altered mental status and new hallucination. There is history of dementia and patient is on dialysis. EXAM/TECHNIQUE: ??Multidetector spiral CT scan of brain is performed. ??Multiplanar reconstruction images are reformatted. All CT scans at this facility use dose modulation, iterative reconstruction, and/or weight based dosing when appropriate to reduce radiation dose to as low as reasonably achievable. COMPARISON: ??Comparison is made with CT scan of brain of 02/24/2025. FINDINGS: ??The ventricular system is normal in size and [...] and mastoid air cells are clear. IMPRESSION: ?? * ??No evidence of intracranial hemorrhage or acute pathology. Finalized by Rakesh Zhu MD on 03/15/2025 5:19 PM Procedure Note Rakesh Zhu MD - 03/15/2025 HISTORY: A 70-year-old male with a history of the altered mental statusand new hallucination. There is history of dementia and patient is ondialysis. EXAM/TECHNIQUE: Multidetector spiral CT scan of brain is performed.Multiplanar reconstruction images are reformatted. All CT scans at this facility use dose modulation, iterativereconstruction, and/or weight based dosing when appropriate to reduceradiation dose to as low as reasonably achievable. COMPARISON: Comparison is made with CT scan of brain of 02/24/2025. FINDINGS: The ventricular system is normal in size and configuration.There is mild degree of cortical atrophy. There is normal differentiationof zelaya and white matters. There is no evidence of intracranial hemorrhage or acute pathology. The cerebellum and brainstem are unremarkable. No mass effect, midline shift of the structures or extra-axial fluidcollections are noted. The calvarium is intact. The visualized paranasal sinuses and mastoid air cells are clear. IMPRESSION: * No evidence of intracranial hemorrhage or acute pathology. Finalized by Rakesh Zhu MD on 03/15/2025 5:19 PM Authorizing ProviderResult TypeResult StatusGeovany Joseph MDChhaya CT ORDERABLES Final Result * Hemodialysis / Ultrafiltation - TABLO (02/28/2025 1:48 PM EST) Alexandra Nunez RN - 02/28/2025 1:48 PM EST Alexandra Devi RN 02/28/2025 1:48 PM Dialysis completed with 0.7 liters removed, post weight 80 kg. ?? Goal changed from 2 liters to 0.7 liters off. ?? NS 150 ml X2 given for bp support. ??CARMEN functioned well at a 400 blood flow rate. ??Aranesp given per primary care RN. Authorizing ProviderResult TypeResult StatusGrzegorz Pacheco MDDIALYSIS ORDERABLES Final Result * Hemodialysis / Ultrafiltation - TABLO (02/25/2025 12:27 PM EST) Narrative Mary Ladd RN - 02/25/2025 12:27 PM EST Mary Ladd RN 02/25/2025 1:12 PM Tolerated 3.5 hours of HD well. CARMEN functioned well at BFR 400 as ordered. No meds given Pt confused at times which is his BL. Dry wt 82.5kg Pre wt ??82.7kg Post wt 81.6kg Fluid removal 1.6L Authorizing ProviderResult TypeResult Angel Parker MDDIALYSIS ORDERABLES Edited Result - Final * Hepatitis C(HCV) Ab w/ Reflex to PCR (02/25/2025 10:23 AM EST)ComponentValue Ref RangeTest MethodAnalysis TimePerformed AtPathologist SignatureANTI HCV W/PCR WQZHDVwq-JzexusnnYzk-Dbuwaimh48/14/2025 2:12 PM [facility] LABORATORYComment: If recent infection suspected, recommend repeat testing (>2 months). Cgvlso-rc-hgrzvw ratio is <1.0. Specimen (Source)Anatomical Location / LateralityCollection Method / Volume Collection TimeReceived TimeBloodVenous blood / UnknownVenipuncture / Unknown 02/25/2025 10:23 AM EST02/25/2025 10:39 AM EST Narrative Authorizing ProviderResult TypeResult Angel Parker MDLAB BLOOD ORDERABLES Final ResultPerforming OrganizationAddressCity/State/ZIP CodePhone Number [facility] [address] [place] [address], * Hepatitis B Surface Antibody Quantitation (02/25/2025 10:23 AM EST)Component ValueRef RangeTest MethodAnalysis TimePerformed AtPathologist SignatureANTI HBS QUANT.6.2mIU/mL02/25/2025 2:15 PM [facility] Specimen (Source)Anatomical Location / LateralityCollection Method / Volume Collection TimeReceived TimeBloodVenous blood / UnknownVenipuncture / Unknown 02/25/2025 10:23 AM EST02/25/2025 10:39 AM EST Narrative [facility] - 02/25/2025 2:15 PM EST Vaccinated: >=10 mIU/mL, Positive (Immune) Unvaccinated: <10 mIU/mL, Negative (Not Immune) Authorizing ProviderResult TypeResult StatusLayton ARCHIBALD BLOOD ORDERABLES Final ResultPerforming OrganizationAddressCity/State/ZIP CodePhone Number [facility] [address] [place] [address] [address] [place] [address], * Hepatitis B surface antigen (02/25/2025 10:23 AM EST)ComponentValueRef Range Test MethodAnalysis TimePerformed AtPathologist SignatureHEPATITIS B SURF AG Nmd-ToykqnimVso-Pohnfhgk56/14/2025 2:07 PM [facility] LABORATORYSpecimen (Source)Anatomical Location / LateralityCollection Method / VolumeCollection TimeReceived TimeBloodVenous blood / UnknownVenipuncture / Jopcpmo6802/25/2025 10:23 AM EST02/25/2025 10:39 AM EST Narrative Authorizing ProviderResult TypeResult StatusLayton ARCHIBALD BLOOD ORDERABLES Final ResultPerforming OrganizationAddressCity/State/ZIP CodePhone Number [facility] [address] [place] [address] [address] [place] [address], * Thiamin (Vitamin B1), WB (02/25/2025 6:29 AM EST)ComponentValueRef RangeTest MethodAnalysis TimePerformed AtPathologist SignatureTHIAMIN (VITAMIN B1), WB92 70 - 180 nmol/L105/01/2024 10:35 AM [facility]IESComment: ADDITIONAL INFORMATION This test was developed and its performance characteristics determined by [facility] in a manner consistent with CLIA requirements. This test has not been cleared or approved by the U.S. Food and Drug Administration. Test Performed by: [facility] - [address] [address] Field Party Manager: Haseeb El Ph.D.; CLIA# [id number] Specimen (Source)Anatomical Location / LateralityCollection Method / Volume Collection TimeReceived TimeBloodVenous blood / UnknownVenipuncture / Unknown 02/25/2025 6:29 AM EST02/25/2025 6:45 AM EST Narrative Authorizing ProviderResult TypeResult StatusAudra E Phlipot HELMET HAT BRIM CUTTER-CNPLAB BLOOD ORDERABLESFinal ResultPerforming OrganizationAddressCity/State/ZIP CodePhone Number [facility] [address] [place] [address], [place] * (ABNORMAL) Vitamin D 25 hydroxy (02/25/2025 6:29 AM EST)ComponentValueRef RangeTest MethodAnalysis TimePerformed AtPathologist SignatureVITAMIN D 25 HYD TOT14.6(L)30.0 - 100.0 ng/mL02/25/2025 12:08 PM [facility] (Source)Anatomical Location / LateralityCollection Method / VolumeCollection TimeReceived TimeBloodVenous blood / UnknownVenipuncture / Roztnsv9602/25/2025 6:29 AM EST02/25/2025 6:41 AM EST Narrative [facility] - 02/25/2025 12:08 PM EST Vitamin D status 25 [place] Vitamin D Deficiency <20 ng/mL Insufficiency ? 20-29 ng/mL Sufficiency ? 30-100 ng/mL Toxicity >100 ng/mL NOTE: A pediatric reference range has not been established by the machine inspector of this kit. The [place] [employer] recommends a Vitamin D level of = or >20ng/mL in infants and children. Authorizing ProviderResult TypeResult StatusAudra E Phlipot HEL[employer] HAT BRIM CUTTER-CNPLAB BLOOD ORDERABLESFinal ResultPerforming OrganizationAddressCity/State/ZIP CodePhone Number [facility] [address] [place] [address], [place] [phone] * (ABNORMAL) C-reactive protein (02/25/2025 6:29 AM EST)ComponentValueRef Range Test MethodAnalysis TimePerformed AtPathologist SignatureC REACTIVE PROTEIN1.6 (H)<=0.7 mg/dL02/25/2025 7:21 AM [facility])Anatomical Location / LateralityCollection Method / VolumeCollection TimeReceived TimeBloodVenous blood / UnknownVenipuncture / Qrkyxvt1002/25/2025 6:29 AM EST02/25/2025 6:41 AM EST Narrative Authorizing ProviderResult TypeResult StatusAudra E Phlipot HEL[employer] HAT BRIM CUTTER-CNPLAB BLOOD ORDERABLESFinal ResultPerforming OrganizationAddressCity/State/ZIP CodePhone Number [facility] [address] [place] [address], * CT brain without contrast (02/24/2025 7:25 PM EST)Anatomical RegionLaterality ModalityNeuro, Head, Head and Neck, Neuro CoveraN/AComputed TomographySpecimen (Source)Anatomical Location / LateralityCollection Method / VolumeCollection TimeReceived Time02/24/2025 7:39 PM EST Narrative 02/24/2025 7:43 PM EST Clinical information: Tremors. Comparison: Limited comparison with outside report of CT head dated 01/31/2025 Technique: Routine unenhanced brain CT. All CT scans at this facility use dose modulation, iterative reconstruction, and/or weight based dosing when appropriate to reduce radiation dose to as low as reasonably achievable. ?? Findings: Suboptimal evaluation due to motion and beam hardening artifact. No acute intracranial hemorrhage, extracerebral fluid collection, midline shift or mass effect. No fracture of the calvarium, skull base and visualized maxillofacial bones. No acute transcortical infarction. Probable chronic ischemic changes of the white matter. Intracranial atherosclerosis. Cerebral volume loss with enlargement of the ventricles. Bilateral lens replacements. Visualized paranasal sinuses are essentially clear. Impression: Suboptimal evaluation due to motion and beam hardening artifact. No gross acute intracranial abnormality. Finalized by Fe Parrish MD on 02/24/2025 7:43 PM Procedure Note Fe Parrish MD - 02/24/2025 Clinical information: Tremors. Comparison: Limited comparison with outside report of CT head date01/31/2025 Technique: Routine unenhanced brain CT. All CT scans at this facility use dose modulation, iterativereconstruction, and/or weight based dosing when appropriate to reduceradiation dose to as low as reasonably achievable. Findings: Suboptimal evaluation due to motion and beam hardening artifact. No acute intracranial hemorrhage, extracerebral fluid collection, midlineshift or mass effect. No fracture of the calvarium, skull base and visualized maxillofacialbones. No acute transcortical infarction. Probable chronic ischemic changes ofthe white matter. Intracranial atherosclerosis. Cerebral volume loss with enlargement of the ventricles. Bilateral lens replacements. Visualized paranasal sinuses are essentially clear. Impression: Suboptimal evaluation due to motion and beam hardening artifact. No grossacute intracranial abnormality. Finalized by Fe Parrish MD on 02/24/2025 7:43 PM Authorizing ProviderResult TypeResult StatusRachel Melvi Villalobos [facility] ORDERABLESFinal Result * (ABNORMAL) POCT Nursing Urine Macroscopic UA (02/24/2025 4:23 PM EST)Component ValueRef RangeTest MethodAnalysis TimePerformed AtPathologist Psychiatric Urine Specific Gravity1.0151.010, 1.015, 1.020, 1.8817302/24/2025 4:26 PM EST [facility] Urine Leukocyte EsteraseLarge(A) Nvuclfmj95/13/2025 4:26 PM [facility] Urine NitritePositive(A)Duevalat37/13/2025 4:26 PM [facility] Urine pH6.55.0, 6.0, 6.5, 7.0, 7.5, 8.0, 8.5, 5.511 4:26 PM ESTPROM[facility] Urine Protein>=300 mg/dL(A) Jvifkchz91/13/2025 4:26 PM [facility] Urine Xrhglcy991 mg/dL(A)Xkbdzdut85/13/2025 4:26 PM [facility] Urine Tizbkut28 mg/dL(A)Drieewcv30/13/2025 4:26 PM [facility] Urine Urobilinogen4.0 E.U./dL02/24/2025 4:26 PM [facility] Urine BilirubinLarge(A)Negative 02/24/2025 4:26 PM [facility] Urine Blood/HGB Large(A)Cjctdmfa98/13/2025 4:[address] [facility] Specimen (Source)Anatomical Location / LateralityCollection Method / Volume Collection TimeReceived PrhmRljla06/13/2025 4:23 PM EST02/24/2025 4:26 PM EST Narrative Authorizing ProviderResult TypeResult StatusJohn Cantrell MDPOINT OF CARE TEST ORDERABLESFinal ResultPerforming OrganizationAddressCity/State/ZIP CodePhone Number [address] [place] [address], [place] * Extra Urine Culture (02/24/2025 4:22 PM EST)ComponentValueRef RangeTest Method Analysis TimePerformed AtPathologist SignatureExtra TubeAuto Resulted 02/24/2025 6:02 PM [facility] Anatomical Location / LateralityCollection Method / VolumeCollection Time Received TimeUrineUrine specimen collection, clean catch / Qsprwrq2402/24/2025 4:22 PM EST02/24/2025 5:25 PM EST Narrative Authorizing ProviderResult TypeResult StatusRachehubert Villalobos HEL[employer] HAT BRIM CUTTER-CNPURINE ORDERABLESFinal ResultPerforming OrganizationAddressty/State/[facility] CodePhone Number [address] [place] [address], [place] * Extra Urine Okay (02/24/2025 4:21 PM EST)ComponentValueRef RangeTest Method Analysis TimePerformed AtPathologist SignatureExtra TubeAuto Resulted 02/24/2025 6:02 PM [facility] (Source) Anatomical Location / LateralityCollection Method / VolumeCollection Time Received TimeUrineUrine specimen collection, clean catch / Ejegiqa9502/24/2025 4:21 PM EST02/24/2025 5:25 PM EST Narrative Authorizing ProviderResult TypeResult StatusRachel Melvi Villalobos HEL[employer] HAT BRIM CUTTER-CNPURINE ORDERABLESFinal ResultPerforming OrganizationAddressCity/State/ZIP CodePhone Number [facility] [address] [place] [address], [place] * Extra Urine (02/24/2025 4:21 PM EST)ComponentValueRef RangeTest MethodAnalysis TimePerformed AtPathologist SignatureExtra TubeAuto Qfkscgav18/13/2025 6:02 PM ESTPROM[facility]ITALpecimen (Source)Anatomical Location / LateralityCollection Method / VolumeCollection TimeReceived TimeUrineUrine specimen collection, clean catch / Kpxzolh2102/24/2025 4:21 PM EST02/24/2025 5:25 PM EST Narrative Authorizing ProviderResult TypeResult StatusRachel Melvi Villalobos HELMET HAT BRIM CUTTER-CNPURINE ORDERABLESFinal ResultPerforming OrganizationAddressCity/State/ZIP CodePhone Number [address] [place] [address], [place] from Last 3 Months
--- OUTSIDE RECORDS SUMMARY | 2025-04-01 12:36 | XMS_ITS | Patient Health Record ---
Author Organization [facility] Address [address] [place] [address] Care Team Providers Care Multiple Pressure Riveter Operator Name Role Phone DEVON EAST Unavailable [phone] DELLA THOMAS Unavailable [phone] Reason For Referral No Information Problems Problem Type SNOMED Code ICD Code Onset Dates Problem Status W/U Status Risk Notes Problem Chronic obstructive pulmonary disease (74133538) Chronic obstructive pulmonary disease, unspecified (J44.9) ActiveconfirmedProblemChronic respiratory failure (05486546)Chronic respiratory failure with hypoxia (J96.11)Activeconfirmed Encounters Encounter Location Date Provider Diagnosis [address] [id number] 02/22/2025 DELLA THOMAS Chronic respiratory failure with hypoxia J96.11 and Chronic obstructive pulmonary disease, unspecified J44.[address] [id number] 03/06/2025 DEVON EAST Chronic respiratory failure with hypoxia J96.11 and Chronic obstructive pulmonary disease, unspecified J44.9 Assessments Encounter Date Diagnosis (ICD Code) Assessment Notes Treatment Notes Treatment Clinical Notes Section Notes 02/22/2025 Chronic obstructive pulmonary di sease, unspecified (ICD-10 - J44.9) 5Chronic respiratory failure with hypoxia (ICD-10 - J96.11)03/06/2025 Chronic respiratory failure with hypoxia (ICD-10 - J96.11)5Chronic obstructive pulmonary disease, unspecified (ICD-10 - J44.9)02/22/2025OtherSeen in collaboration and discussed plan of care with Dr. Devon East Plan Of Treatment No Information Insurance Providers Payer Name Payer Address Payer Phone Subscriber Number Group Number Insured Name Patient Relationship to Insured Coverage Start Date Coverage End Date [employer] [place] [address] [place] [address] [id number] Edin Jose - patient is the insuredMedicaid of [address] [id number], JamesSelf - patient is the insured
--- OUTSIDE RECORDS SUMMARY | 2025-04-01 12:37 | XMS_ITS | Patient Health Record ---
Author Organization [facility] [place] Address [address] [place] [address] Care Team Providers Care Globe Mounter Name Role Phone Rico Thakkar MD Primary Care Provider Regan Bunch Unavailable [phone] Results Component Value Reference Range Notes B-TYPE NATRIURETIC PEPTIDE Reviewed date:05/09/2024 03:49:47 PM Interpretation: Performing Lab: Notes/Report: [facility] ([facility]) [address] [place] [address] NATRIURETIC PEPTIDE B (PG/ML) IN SER/PLAS 728 0-100 pg/mL Performing Lab:see [facility] ([place]) - Child Care Assistant Id information not found for OBX-specific studio producer legendCOMPREHENSIVE METABOLIC PANEL Reviewed date:05/09/2024 03:49:47 PM Interpretation: Performing Lab: Notes/Report: [facility] ([facility]) [address] [place], [place] [address]MQCFMT (MMOL/L) IN SER/URJP969151-092 mmol/LPOTASSIUM (MMOL/L) IN SER/PLAS4.33.5-5.1 mmol/LCHLORIDE (MMOL/L) IN SER/BJTR13820-283 mmol/LCARBON DIOXIDE, TOTAL (MMOL/L) IN SER/KKCJ8282-00 mmol/LANION GAP IN SER/VKTT869-63 mmol/LUREA NITROGEN (MG/DL) IN SER/MLDJ890-99 mg/dLCREATININE (MG/DL) IN SER/PLAS1.090.70-1.30 mg/dLUREA NITROGEN/CREATININE (MASS RATIO) IN SER/PLAS31.2 GLUCOSE (MG/DL) IN SER/TEVG84916-942 mg/dLCALCIUM (MG/DL) IN SER/PLAS8.78.6-10.3 mg/dLASPARTATE AMINOTRANSFERASE (SGOT) (U/L) IN SER/DHQA3706-87 U/LALANINE AMINOTRANSFERASE (SGPT) (U/L) IN SER/CAXP309-48 U/LALKALINE PHOSPHATASE (U/L) IN SER/TXBM44227-822 U/LPROTEIN (G/DL) IN SER/PLAS6.16.0-8.3 g/dLALBUMIN (G/DL) IN SER/PLAS3.83.5-5.7 g/dLBILIRUBIN TOTAL (MG/DL) IN SER/PLAS0.40.3-1.0 mg/dL GLOMERULAR FILTRATION RATE ML/MIN/1.73 SQ M.FGFTHBTMC92.0>60.0 mL/min/1.73m*2The [facility]???s estimated glomerular filtration rate (eGFR) will no longer include consideration of race in its calculation. The National Kidney Foundation???s eGFR Task Force developed new recommendations for the estimation of the glomerular filtration rate in the [place] They recommend immediate implementation of the new equation refit without the race variable in all laboratories because the calculation does not include race. In addition to not including race in the calculation and reporting, it included diversity in its development, and has acceptable performance characteristics and potential consequences that do not disproportionately affect any one group of individuals. Performing Lab:see [facility] ([facility]) - Child Care Assistant Id information not found for OBX-specific studio producer legendHSV (Not yet reviewed by provider) Interpretation: Performing Lab: Notes/Report: rdd/12/27/2024 INTERPRETATION Interpretation performed at [place] [address] [place] [address] Electronically Signed Out Yossi Corrigan M.D. Path Number: [id number] Patient Name: TIMMY MUÑOZ Rec: [id number] Processing Lab: [place] [address] Non Pricing Lead Thin Prep x 1, Diff Quik Slide x 1, Cell Block w/ H&E x 1 No information given. [address] [facility]. [place], [place] [address] Gross Description ANATOMIC PATHOLOGY NEGATIVE FOR MALIGNANCY. NONGYNECOLOGICAL CYTOPATHOLOGY CONSULTATION THORACENTESIS FLUID;R 1000 ml orange cloudy fluid with clots. Microscopic examination [place] [address] A: R THORACENTESIS FLUID People and Pages R THORACENTESIS FLUID: MICROSCOPIC DESCRIPTION Source of Specimen: B-TYPE NATRIURETIC PEPTIDE Reviewed date:01/25/2025 06:54:39 PM Interpretation: Performing Lab: Notes/Report: [facility] ([facility]) [address] [place], [place] [address]OEWFWNPRIZF PEPTIDE B (PG/ML) IN SER/QXCT93714-911 pg/mL Performing Lab:see [facility] ([facility]) - Child Care Assistant Id information not found for OBX-specific studio producer legendCBC WITH AUTO DIFFERENTIAL Reviewed date:01/25/2025 06:54:39 PM Interpretation: Performing Lab: Notes/Report: [facility] ([facility]) [address] [place], [place] [address]EMNJFHMTTC(10*3/UL) IN BLOOD BY AUTOMATED COUNT7.804.00-10.60 10*3/uLERYTHROCYTES (10*6/UL) IN BLOOD BY AUTOMATED COUNT2.184.20-5.70 10*6/uL HEMOGLOBIN (G/DL) IN BLOOD6.513.0-17.0 g/dLHEMATOCRIT (%) IN BLOOD BY AUTOMATED COUNT20.539.0-50.0 %ERYTHROCYTE MEAN CORPUSCULAR VOLUME (FL) BY AUTOMATED COUNT 94.082.0-98.0 fLERYTHROCYTE MEAN CORPUSCULAR HEMOGLOBIN (PG) BY AUTOMATED COUNT 29.827.0-33.0 pgERYTHROCYTE MEAN CORPUSCULAR HEMOGLOBIN CONCENTRATION (G/DL) BY KYRBZJERD93.732.0-35.0 g/dLERYTHROCYTE DISTRIBUTION WIDTH (RATIO) BY AUTOMATED COUNT15.511.5-15.0 %NEUTROPHILS/100 LEUKOCYTES IN BLOOD BY AUTOMATED COUNT77.8 40.0-72.0 %LYMPHOCYTES/100 LEUKOCYTES IN BLOOD BY AUTOMATED COUNT9.520.0-45.0 % MONOCYTES/100 LEUKOCYTES IN BLOOD BY AUTOMATED COUNT7.15.0-12.0 %EOSINOPHILS/100 LEUKOCYTES IN BLOOD BY AUTOMATED COUNT4.70.0-6.0 %BASOPHILS/100 LEUKOCYTES IN BLOOD BY AUTOMATED COUNT0.50.0-1.0 %NEUTROPHILS (10*3/UL) IN BLOOD BY AUTOMATED COUNT6.071.60-7.60 10*3/uLLYMPHOCYTES (10*3/UL) IN BLOOD BY AUTOMATED COUNT0.74 1.20-4.00 10*3/uLMONOCYTES (10*3/UL) IN BLOOD BY AUTOMATED COUNT0.550.10-1.00 10*3/uLEOSINOPHILS (10*3/UL) IN BLOOD BY AUTOMATED COUNT0.370.00-0.50 10*3/uL BASOPHILS (10*3/UL) IN BLOOD BY AUTOMATED COUNT0.040.00-0.20 10*3/uLPLATELETS (10*3/UL) IN BLOOD AUTOMATED SAIWH523098-130 10*3/uLNRBC (PER 100 WBCS) BY AUTOMATED COUNT0.00 %IMMATURE GRANULOCYTES/100 LEUKOCYTES IN BLOOD BY AUTOMATED COUNT0.40.0-1.0 %IMMATURE GRANULOCYTES (10*3/UL) IN BLOOD BY AUTOMATED COUNT0.03 0.00-0.20 10*3/uLPerforming Lab:see note[facility] ([facility]) - Child Care Assistant Id information not found for OBX-specific studio producer legendCOMPREHENSIVE METABOLIC PANEL Reviewed date:01/25/2025 06:54:39 PM Interpretation: Performing Lab: Notes/Report: [facility] ([facility]) [address] [place], [place] [address]OGPBQC (MMOL/L) IN SER/XZWQ259356-879 mmol/LPOTASSIUM (MMOL/L) IN SER/PLAS2.63.5-5.1 mmol/LCHLORIDE (MMOL/L) IN SER/RZGU0571-910 mmol/LCARBON DIOXIDE, TOTAL (MMOL/L) IN SER/CBGQ5371-04 mmol/LANION GAP IN SER/XARF748-16 mmol/LUREA NITROGEN (MG/DL) IN SER/ZNNV271-32 mg/dLCREATININE (MG/DL) IN SER/PLAS3.250.70-1.30 mg/dLUREA NITROGEN/CREATININE (MASS RATIO) IN SER/PLAS10.2 GLUCOSE (MG/DL) IN SER/HPKB78655-047 mg/dLCALCIUM (MG/DL) IN SER/PLAS8.48.6-10.3 mg/dLASPARTATE AMINOTRANSFERASE (SGOT) (U/L) IN SER/EGSQ2285-77 U/LALANINE AMINOTRANSFERASE (SGPT) (U/L) IN SER/INIU06-90 U/LALKALINE PHOSPHATASE (U/L) IN SER/AOKB59476-869 U/LPROTEIN (G/DL) IN SER/PLAS6.36.0-8.3 g/dLALBUMIN (G/DL) IN SER/PLAS3.73.5-5.7 g/dLBILIRUBIN TOTAL (MG/DL) IN SER/PLAS1.30.3-1.0 mg/dL GLOMERULAR FILTRATION RATE ML/MIN/1.73 SQ M.BCEHKEYMC67.7>60.0 mL/min/1.73m*2The [facility]???s estimated glomerular filtration rate (eGFR) will no longer include consideration of race in its calculation. The National Kidney Foundation???s eGFR Task Force developed new recommendations for the estimation of the glomerular filtration rate in the [place] They recommend immediate implementation of the new equation refit without the race variable in all laboratories because the calculation does not include race. In addition to not including race in the calculation and reporting, it included diversity in its development, and has acceptable performance characteristics and potential consequences that do not disproportionately affect any one group of individuals. Performing Lab:see [facility] ([facility]) - Child Care Assistant Id information not found for OBX-specific studio producer legendHIGH SENSITIVITY TROPONIN I Reviewed date:01/25/2025 06:54:39 PM Interpretation: Performing Lab: Notes/Report: [facility] ([facility]) [address] [place], [place] [address]BC TROPONIN I (NG/L)42<20 ng/LPerforming Lab:see [facility] ([place]) - Child Care Assistant Id information not found for OBX-specific studio producer legendXR CHEST (SINGLE VIEW FRONTAL) Reviewed date:01/27/2025 04:50:14 PM Interpretation: Performing Lab: Notes/Report: EXAM: Performed at: [facility] [address] [place], [place] [address] [place] [address] URINALYSIS MICROSCOPIC Reviewed date:04/29/2024 06:23:54 AM Interpretation: Performing Lab: Notes/Report: [facility] ([facility]) [address] [place], [place] [address]WJF (#/HPF) IN URINE SEDIMENT3-5None Seen, 0-2 /HPFWBC (LEUKOCYTE) (#/HPF) IN URINE SEDIMENT0-2None Seen, 0-2 /HPFSQUAMOUS EPITHELIAL CELLS (#/LPF) IN URINE SEDIMENTNone SeenNone Seen, Occasional, Few /LPF Performing Lab:see [facility] ([facility]) - Child Care Assistant Id information not found for OBX-specific studio producer legendURINALYSIS Reviewed date:04/29/2024 06:23:54 AM Interpretation: Performing Lab: Notes/Report: [facility] ([facility]) [address] [place], [place] [address]GZVGE OF URINELight-YellowColorless, Yellow, Light-YellowCLARITY OF URINEClearClearPH OF URINE5.55.0-8.0 pHLEUKOCYTE ESTERASE PRESENCE IN URINE BY TEST STRIPNegativeNegativeNITRITE PRESENCE IN URINENegativeNegativePROTEIN (MG/DL) IN URINE BY TEST FRZQI85Gxtcnwrx mg/dLGLUCOSE (MG/DL) IN URINE>=1000 Normal mg/dLBILIRUBIN, TOTAL PRESENCE IN URINENegativeNegativeSPECIFIC GRAVITY OF URINE1.0181.010-1.030 NAKETONES (MG/DL) IN URINENegativeNegative mg/dL HEMOGLOBIN PRESENCE IN URINESmallNegativeUROBILINOGEN (MG/DL) IN URINENormal Normal mg/dLPerforming Lab:see [facility] ([facility]) - Child Care Assistant Id information not found for OBX-specific studio producer legendSurgical Pathology ([facility]) Reviewed date:01/31/2025 02:55:29 PM Interpretation: Performing Lab: Notes/Report: Note: The electronic health record is reviewed. LYMPHOPENIA MAY BE ASSOCIATED WITH STRESS AND MEDICATION EFFECT. RESULTS-COMMENTS PERIPHERAL BLOOD STUDY PLATELETS: Platelets show normal morphology. NEGATIVE. SERUM HAPTOGLOBIN IS ADEQUATE. THE YUE TEST IS NEGATIVE. Patient Name: TIMMY MUÑOZ PERIPHERAL BLOOD REPORT Date Ordered: 01/30/2025 Status: 3. NORMAL WBC COUNT WITH ABSOLUTE LYMPHOPENIA AND MILD EOSINOPHILIA. [facility] Signed Out 4. NORMAL RETICULOCYTE COUNT. [employer] Pages Procedures/Addenda ([id number], 01/28/2025, 04:56). ILLNESS. IS ADEQUATE. IRON STUDIES ARE CONSISTENT WITH ANEMIA OF CHRONIC INTERPRETATION PERIPHERAL BLOOD: [id number] SURGICAL PATHOLOGY CONSULTATION THIS MAY BE RELATED TO PERIPHERAL CONSUMPTION OR DECREASED PRODUCTION. Specimen #[id number] MR#: [id number] 2. NORMOCYTIC, NORMOCHROMIC ANEMIA WITH ANISOCYTOSIS. SERUM FERRITIN [address] [place], [place] [address] ERYTHROCYTES: Red blood cells show anisocytosis. Erwin Bauman M.D. 1. THROMBOCYTOPENIA. HEPARIN ASSOCIATED PLATELET ANTIBODY TEST IS A: Peripheral Blood ANATOMIC PATHOLOGY Source: Date Reported: 01/31/2025 REACTION TO MEDICATIONS. EOSINOPHILIA CAN BE OBSERVED WITH ALLERGIC REACTIONS, INFECTIONS, AND CBC: Please see the electronic health record for CBC parameters Date Complete: 01/31/2025 By: Erwin Bauman M.D. blasts. LEUKOCYTES: White blood cells show normal morphology. There are no LACTATE DEHYDROGENASE Reviewed date:01/25/2025 06:54:39 PM Interpretation: Performing Lab: Notes/Report: [facility] ([facility]) [address] [place], [place] [address]BEPZBKW DEHYDROGENASE (U/L) IN SER/PLAS BY LAC->PYR THS094711- 271 U/LPerforming Lab:see [facility] ([facility]) - Child Care Assistant Id information not found for OBX-specific studio producer legend Reason For Referral No Information Problems Problem Type SNOMED Code ICD Code Onset Dates Problem Status W/U Status Risk Notes Problem Essential hypertension (03301406 ) Essential (primary) hypertension (I10) ActiveconfirmedProblemType II diabetes mellitus without complication (927439162) Type 2 diabetes mellitus without complications (E11.9)ActiveconfirmedProblem Gastro-esophageal reflux disease without esophagitis (476285481)Gastro- esophageal reflux disease without esophagitis (K21.9)ActiveconfirmedProblem Chronic obstructive pulmonary disease (64739326)Chronic obstructive pulmonary disease, unspecified (J44.9)ActiveconfirmedProblemAnemia (423981039)Anemia, unspecified (D64.9)ActiveconfirmedProblemHyperlipidemia (58243725) Hyperlipidemia, unspecified (E78.5)ActiveconfirmedProblemAtherosclerotic heart disease of [place] coronary artery without angina pectoris (399382832882679) Atherosclerotic heart disease of [place] coronary artery without angina pectoris (I25.10)ActiveconfirmedProblemHeart failure (70979606)Heart failure, unspecified (I50.9)ActiveconfirmedProblemChronic respiratory failure (19798565)Chronic respiratory failure with hypoxia (J96.11)ActiveconfirmedProblemGout (78726892) Gout, unspecified (M10.9)ActiveconfirmedProblemEnd stage renal disease (40083405)End stage renal disease (N18.6)ActiveconfirmedProblemCongestive heart failure (92547642)CHF (congestive heart failure) (I50.9)ActiveconfirmedProblem COPD - Chronic obstructive pulmonary disease (10347012)COPD (chronic obstructive pulmonary disease) (J44.9)ActiveconfirmedProblemGastroesophageal reflux disease (485678770)GERD (gastroesophageal reflux disease) (K21.9)ActiveconfirmedProblem Coronary artery disease (90608065)CAD (coronary artery disease) (I25.10)Active confirmedProblemHypertension (62758948)HTN (hypertension) (I10)Activeconfirmed ProblemNeuropathy (257709354)Neuropathy (G62.9)ActiveconfirmedProblemDiabetes mellitus type 2 (disorder) (05773339)DM2 (diabetes mellitus, type 2) (E11.9) ActiveconfirmedProblemAcute non-ST segment elevation myocardial infarction (435974877)NSTEMI (non-ST elevated myocardial infarction) (I21.4)Activeconfirmed ProblemLower urinary tract symptoms due to benign prostatic hypertrophy (95548601123128)Benign localized hyperplasia of prostate with urinary retention (N40.1)ActiveconfirmedProblemChronic kidney disease stage 3A (disorder) (453884065)Chronic kidney disease, stage 3a (N18.31)ActiveconfirmedProblem Dementia (02911986)Unspecified dementia, unspecified severity, without behavioral disturbance, psychotic disturbance, mood disturbance, and anxiety (F03.90)ActiveconfirmedProblemParkinson's disease (disorder) (02253895) Parkinson's disease without dyskinesia, without mention of fluctuations (G20.A1) Activeconfirmed Encounters Encounter Location Date Provider Diagnosis [facility] [address] [place] [address] 12/22/2024 [facility] [place] [address]/02/2025[facility] [place] [address]/03/2025[facility] [place] [address]/[facility] [place] [address]/[facility] [place] [address]/[facility] [place] [address]/[place] [address] [place] [address]/[place] [address] [place] [address]/[place] [address] [place] [address]/[facility] Plan Of Treatment Pending Test Test Name Order Date HSV 12/23/2024 Insurance Providers Payer Name Payer Address Payer Phone Subscriber Number Group Number Insured Name Patient Relationship to Insured Coverage Start Date Coverage End Date [facility] [address] [place] [address] [id number] Timmy Muñoz Self - patient is the insured 5 5 MEDIC[place] [place] [address] [id number] Edin Muñoz - patient is the [id number] [place] [id number] Edin Muñoz - patient is the [id number] 2025
--- OUTSIDE RECORDS SUMMARY | 2025-04-01 12:37 | XMS_ITS | Clinical Summary ---
Author Organization [employer] s tem Address [id number] [address] [place] [address] Care Team Providers Care Carbide Grinder Name Role Phone Rico Thakkar MD Primary Care Provider [phone] Allergies Active AllergyReactionsCriticalityNoted NnrvSmwxjfsqNqkedtvape11/13/2025 Qpbzipdttk48/13/2025DiphenhydramineAnxiety,Hallucinations,Other (See Comments) Pzbdaf4901/03/2025 Confusion Gbeupdvpmg90/13/4706Pacfdmovz09/13/2124AgrchorebzechSkywn56/10/2025 Patient states I get hives , breakout in rashes Akfivvdanw94/13/2025Sulfa (Sulfonamide Antibiotics)02/24/2025 Medications MedicationSigDispense QuantityRefillsLast FilledStart DateEnd [...] and 1 tablet (5 mg total) before bedtime.4Active DULoxetine (CYMBALTA) 20 mg capsule Take 1 [...] in the morning and 3 mL before bedtime.6Active isosorbide mononitrate (IMDUR) 120 mg 24 hr tablet Take 1 tablet (120 mg total) by mouth daily.5Active midodrine (PROAMATINE) 10 mg tablet Take 1 tablet (10 mg total) by mouth every 3 (three) hours as needed (for hypotension give pre and mid dialysis).5Active nitroglycerin (NITROSTAT) 0.[address] 1 tablet (0.4 mg total) under the tongue every 5 (five) minutes as needed for chest pain.5Active pantoprazole (PROTONIX) 40 mg EC tablet Take [...] 1 tablet (3 mg total) by mouth nightly.5Active rivastigmine (EXELON) 4.6 mg/[address] 1 [...] into a venous catheter every 12 (twelve) hours.03/01/2025tive Additional Information Patient not taking.Reported on 03/16/2025 sevelamer (RENVELA) 800 mg tablet Take 1 tablet (800 mg total) by mouth 3 (three) times a day.Active aspirin 81 mg chewable tablet Chew 1 tablet (81 mg total) and swallow in the morning.03/25/2025tive metoprolol succinate XL (TOPROL XL) 25 mg 24 hr tablet Take 0.5 tablets (12.5 mg total) by mouth in the morning and 0.5 tablets (12.5 mg total) before bedtime.03/24/2025tive carvediloL (COREG) 3.125 mg tablet Take 1 tablet (3.125 mg total) by mouth in the morning and 1 tablet (3.125 mg total) before bedtime./03/2025Discontinued(Stop Taking at Discharge) furosemide (LASIX) 80 mg tablet Take 1 tablet (80 mg total) by mouth daily./03/2025Discontinued(Stop Taking at Discharge) ertapenem in sodium chloride 0.9 % 50 mL IVPB ertapenem (INVanz) 500 mg in sodium chloride 0.9 % 50 mL IVPB 500 mg, intravenous, at 110 mL/hr, Administer over 30 Minutes, Every 24 hour for 4 more daysExpired Active Problems ProblemNoted DateDiagnosed DateSepsis with encephalopathy and septic shock, due to unspecified jzkxpujd38/03/2025Has a xjnlfu8602/25/2025End stage renal disease 5Acute systolic (congestive) heart ddeezeg7601/09/2025hronic obstructive pulmonary totimbt5801/20/2023trial fibrillation, ttelmwq6508/20/2019 Overview (02/25/2025): History: POA Assessment: a-fib s/p MAZE Plan: On BB not on AC (reported bleeding per H&P). No AC per Dr. Abdalla Type 2 diabetes mellitus with clzohqyoohurq79/01/2011 Encounters DateTypeDepartmentCare PnatCuqjvbakkiv71/18/9056Hstiyn19/18/2025Orders Only Annalise Gomez [facility] - Medical Oncology [address] [place] [address] Jacqueline Witt RN Anemia, unspecified type (Primary Dx)03/21/20253360Tefuqy34/04/2025Results Follow-Up [facility] - Emergency [address] [place] [phone] Martha Muller RN Blood culture, Blood culture, Urine Culture Urine, Indwelling Crbzqety12/03/2025 5:16 AM EST - 03/25/2025 1:20 AM ESTHospital Encounter [facility] - GEN 8 Acute [address] [place] [phone] Aurelio Fritz DO Alratroot, Ahmad, MD Miller, Nichole M, MD Elston, Shanna M, DO Noumi, Andre, MD Suri, Pooja, MD Dimmerling, Taylor J, MD Sepsis with encephalopathy and septic shock, due to unspecified organism ([facility]) (Primary Dx); Pneumonia of right lower lobe due to infectious organism; ESRD (end stage renal disease) ([facility]) Discharge Disposition: Half-Way Facility-Medicare Cert03/16/2025 12:48 AM EST - 03/16/2025 4:24 AM ESTEmergency [facility] - Emergency [address] [place] [address] John Cantrell MD Hypotensive episode (Primary Dx); Altered mental status, unspecified altered mental status type; Dependence on renal dialysis; Sepsis, due to unspecified organism, unspecified whether acute organ dysfunction present ([facility]); Pneumonia of right lower lobe due to infectious organism Discharge Disposition: [facility]03/16/20255333Gvgobs77/02/2025 5:04 PM EST - 03/16/2025 12:13 AM [facility] Emergency [address] [place] [address] Geovany Joseph MD Pneumonia of right lower lobe due to infectious organism (Primary Dx); Altered mental status, unspecified altered mental status type; ESRD on hemodialysis ([facility]) Discharge Disposition: [facility]03/15/20255405Fuzope09/14/2025 2:46 AM EST - 03/01/2025 2:15 AM ESTHospital Encounter [facility] - Acute Care Unit [address] [place] [address] Korina Chaudhary MD Gill, Kaleem U, MD End stage renal disease ([facility]) (Primary Dx); UTI due to extended-spectrum beta lactamase (ESBL) producing Escherichia coli Discharge Disposition: Half-Way Facility-Medicare Cert02/25/2025Results Follow-Up [facility] [address] [place] [address] Ivania Mejia RN Blood culture, Blood culture, Urine Culture Urine, Clean Catch Midstream 02/24/2025 3:20 PM EST - 02/25/2025 2:05 AM [facility] Emergency [address] [place] [address] John Cantrell MD Urinary tract infection associated with indwelling urethral catheter, initial encounter (Primary Dx); Tremor Discharge Disposition: [facility]02/24/2025Travelfrom Last 3 Months Immunizations ImmunizationAdministration DatesNext DueCovid-19, Mrna, Lnp-s, Pf, 30 Mcg/0.3 Ml Dose, Gurdeep-dqtospu1501/29/2022,01/08/2022Influenza, Injectable, quadrivalent (PF) 01/16/2024Influenza, Trivalent, Snvfwxfkcc62/02/2025,03/02/2019PPD Test 12/08/2023,11/28/2023,03/29/2023,03/19/2023,01/21/2023neumococcal Conjugate 13-Wmtveu9303/22/2019Pneumococcal Anqytxalabckxq52/25/2020,10/01/2017Pneumococcal, Ckpefmrfdjs89/19/2012,01/15/2007Tdap10/01/2017,06/17/2013Tuberculin Skin Test; Unspecified Cgejvxtpcrs96/25/2024,02/26/2024Zoster Vaccine Ccjnmtuswtt75/06/2019 ,01/28/2018,10/01/2017 Social History Tobacco UseTypesPacks/DayYears UsedDateSmoking Tobacco: NeverSmokeless Tobacco: Never Tobacco Cessation:Counseling Given: No Comments:02/25 [facility] - AMS, unable to reach family. Per [place] pt does not have history of smoking on file with them Alcohol UseStandard Drinks/WeekCommentsDefer0 (1 standard drink = 0.6 oz pure alcohol)02/25 [facility] - AMS, unable to reach family.AUDIT-CAnswerDate RecordedQ1: How often do you have a drink containing alcohol?Patient unable to answer 02/25/2025Q2: How many drinks containing alcohol do you have on a typical day when you are drinking?Patient unable to wwkgio7302/25/2025Q3: How often do you have six or more drinks on one occasion?Patient unable to zbazzt5802/25/2025 PRAPARE - TransportationAnswerDate RecordedIn the past 12 months, has lack of transportation kept you from medical appointments or from getting medications?No 02/25/2025In the past 12 months, has lack of transportation kept you from meetings, work, or from getting things needed for daily living?No02/25/2025HC UtilitiesAnswerDate RecordedIn the past 12 months has the [employer], gas, oil, or water company threatened to shut off services in your home?No02/25/2025Housing InstabilityAnswerDate RecordedAre you worried or concerned that in the next two months you may not have stable housing that you own, rent or stay in as a part of a household?No02/25/2025hildcareAnswerDate RecordedChildcareUnknown 09/21/2018EmploymentAnswerDate DzpmafgfOrnlkkpstwGsqtguv44/10/2019Hunger ScreeningAnswerDate RecordedWithin the past 12 months we worried whether our food would run out before we got money to buy more.Never True03/19/2025Within the past 12 months the food we bought just didn't last and we didn't have money to get more.Never True03/19/2025Sex and Gender InformationValueDate RecordedSex Assigned at BirthNot on fileLegal UxoEbor1011/15/2014 1:57 PM EDTGender Identity Not on fileSexual OrientationNot on file Last Filed Vital Signs Vital SignReadingTime TakenCommentsBlood Ikdiaggl093/8203/24/2025 10:06 PM EST Vipza407203/24/2025 10:06 PM WUFYyzvhqznlwu76.9 ??C (98.5 ??F)03/24/2025 7:34 PM ESTRespiratory Ppcw071205/25/2024 9:09 PM ESTOxygen Nljxdkdoys158%03/24/2025 9:09 PM ESTInhaled Oxygen Concentration--Xldjef85.9 kg (176 lb 2.4 oz)03/24/2025 3:23 PM WWLRpozhi148.2 cm (5' 7 )03/22/2025 10:11 AM ESTBody Mass Index27.59 03/22/2025 10:11 AM EST Plan of Treatment DateTypeDepartmentCare Team (Latest Contact Info)Jvxwsbiegvj23/14/2026 11:00 AM ESTOffice Visit [facility] [address] [facility] [address] [place] [phone] Rosana Black, FERN-REAL PROPERTY EVALUATOR [address] [facility] [address] [address] Health MaintenanceDue DateLast DoneCommentsDiabetic Ophthalmology Exam1954 Depression Qfhyhtorn55/31/1966Adult BMI Follow Up Plan02/12/1972Diabetic Foot Exam02/12/1972RSV ( or age 60+ yrs) (1 - Risk 50-74 years 1-dose series) 02/12/2004Fall Risk Ziadupxlp06/31/2019COVID-19 Vaccine (3 - season) , 01/08/2022Tobacco Pjscnwctj47dult BMI Ouaxmlwjo04DTaP,Tdap and Td Vaccines (3 - Td or Tdap) 8010/01/2017, 06/17/2013Zoster (Shingles) LuiwphuJqddyauep70/06/2019, 01/28/2018, 10/01/2017Influenza DfofayyXapfczdfh04/02/2025, 01/16/2024, 03/02/2019 Goals GoalPatient Goal TypeAssociated ProblemsRecent ProgressPatient-Stated?Author [facility] Arianna Raymond, MISTY Note: Evaluation of progress towards goal: Patient plans to return to [facility] Medical Devices Not on file Procedures Procedure NamePriorityDate/TimeAssociated DiagnosisCommentsSARS COV 2 BY NAAT/BQCOSMMMZVgvreef14/11/2025 4:53 PM EST HEMOGLOBIN AND HEMATOCRIT, BPLHJRgmvzqu77/11/2025 4:37 PM EST HEMODIALYSIS NTXWCONTJUgylmrq84/11/2025 3:23 PM EST BEDSIDE ZOUZFJUOwlpizg33/11/2025 2:32 PM EST FL SWALLOW MOTILITY ZCNRZSHJGcsjpze83/11/2025 10:41 AM EST CK MPODUEqfsqyu61/11/2025 5:47 AM EST CBC WITH AUTO XUCSJDHNJLQGHvwfqqx38/11/2025 5:47 AM EST COMPREHENSIVE METABOLIC RNDKKEzbsakd60/11/2025 5:47 AM EST HEMOGLOBIN AND HEMATOCRIT, JQBJFQkjfmig31/10/2025 3:15 PM EST HEMODIALYSIS PJTNVBYJBCdirzbu38/10/2025 12:34 PM EST DYIUGDFDVSfyxijv03/10/2025 6:04 AM EST CBC WITH AUTO PAMYGIPBNMAEPgqgbci56/10/2025 6:04 AM EST COMPREHENSIVE METABOLIC ZSZZFWtkrfft52/10/2025 6:04 AM EST HEMOGLOBIN AND HEMATOCRIT, ZRZTKAzwgmip27/09/2025 4:[address] ABDOMEN AND PELVIS WO SIYQQazylgn05/09/2025 3:00 PM EST HEMOGLOBIN AND HEMATOCRIT, YEABNOpwngio11/09/2025 1:24 PM EST OCCULT BLOOD X 1, FNGRDHztdkmx10/09/2025 11:59 AM EST TRANSFUSE RED BLOOD RWYUYIqhizhi69/09/2025 10:11 AM ESTREPEATED ABORHRoutine 03/22/2025 7:52 AM ESTCROSSMATCH TXYEovbuwk94/09/2025 7:00 AM EST EXTRA TUBES LAVENDER REEAwwmset60/09/2025 7:00 AM EST TYPE AND JKPDCRKfhxwiw98/09/2025 7:00 AM EST FOLATEAdd-On03/22/2025 7:00 AM EST VITAMIN Y23Jeu-Vm72/09/2025 7:00 AM EST FERRITINAdd-On03/22/2025 7:00 AM EST EXTRA IRHXDRukcyur81/09/2025 7:00 AM EST IRON AND TIBCAdd-On03/22/2025 7:00 AM EST NNNHKESQXJdtqkmx58/09/2025 5:29 AM EST CBC WITH AUTO ZTPNKSAIXFHLCwwatjl15/09/2025 5:29 AM EST COMPREHENSIVE METABOLIC MDUDJQtkfwhm63/09/2025 5:29 AM EST TROP I, HIGH SENSITIVITY 1 RJHJIESF30/08/2025 5:08 PM EST ECG 12-MVPQZbtzqut34/08/2025 3:44 PM EST TROPONIN I, HIGH SENSITIVITY 0 NGKXCUWD59/08/2025 3:18 PM EST TROPONIN I, HIGH SENSITIVITY 0 XSJPSGJG51/08/2025 3:18 PM EST HEMODIALYSIS PSUMCEJZMBqycamp62/08/2025 2:30 PM EST REPEATED USJPZNhbgbtf40/08/2025 6:42 AM EST CK TOTALAdd-On03/21/2025 6:42 AM EST FGLBLSJYZCplfwhe11/08/2025 6:42 AM EST CBC WITH AUTO IXUCRRVZUKQCMlzhgcr77/08/2025 6:42 AM EST COMPREHENSIVE METABOLIC QHQMFMlvorak96/08/2025 6:42 AM EST FL SWALLOW MOTILITY ZQGCMAWFJhodinw62/06/2025 10:17 AM EST CBC WITH AUTO DHDLJKHYFHRVStzjikq34/06/2025 6:49 AM EST COMPREHENSIVE METABOLIC DZONTVstqlif64/06/2025 6:49 AM EST BLOOD PYKMJVJPLNM84/06/2025 6:49 AM EST BLOOD ALAGHVFKOWZ63/06/2025 6:49 AM EST XR CHEST 1 BVPnnmsem31/06/2025 4:52 AM EST CHWCPAOBFfnjchh39/05/2025 2:24 PM EST HEMODIALYSIS WLKOCNASTUdqndtj44/05/2025 11:02 AM EST AABSICAOUUXhxlyio18/05/2025 5:03 AM EST PROCALCITONINAdd-On03/18/2025 2:03 AM EST CBC WITH AUTO RAFJGNNAKDTOTtmpxhb76/05/2025 2:03 AM EST COMPREHENSIVE METABOLIC DGAYYCgbkxzx25/05/2025 2:03 AM EST IONIZED KEGWXYPOVTflujaz56/04/2025 11:36 AM EST HEMOGLOBIN AND HEMATOCRIT, YXEIGRIDH92/04/2025 7:40 AM EST MPRKUHCPHIkyjvkz39/04/2025 6:27 AM EST BEDSIDE DGXKKFUVikdmas29/04/2025 2:23 AM EST MAGNESIUMAdd-On03/17/2025 2:23 AM EST CBC WITH AUTO UJJGIXBCNKPHBgnnilk43/04/2025 2:23 AM EST COMPREHENSIVE METABOLIC EQZSDNlkkmkw44/04/2025 2:23 AM EST BEDSIDE SGLBTTTMfzpjhz01/03/2025 7:17 PM EST CK MVHWAFOTF10/06/2024 6:01 PM EST HEMODIALYSIS QZUHCIJAWVglaqga79/03/2025 5:32 PM EST CBC WITH AUTO RABEZMSMUGUMIawpupx55/03/2025 11:32 AM EST COMPREHENSIVE METABOLIC ODUNMFkearsu34/03/2025 11:32 AM EST BLOOD JQZQGXAVCKF32/03/2025 10:35 AM EST BLOOD ETUKMETIBQQ99/03/2025 10:35 AM EST S PNEUMONIAE AG SYmyprde81/03/2025 7:48 AM EST LEGIONELLA ANTIGEN, IMUXONidrsif39/03/2025 7:48 AM EST RESP PATHOGENS PANEL/CMGA-PRU-7Phljvyt05/03/2025 7:48 AM EST MRSA PCR NASAL FXNXBdwqtlz33/03/2025 7:48 AM EST BEDSIDE KGZGRNPRuiouoe82/03/2025 6:48 AM EST SALAS TOP ON WXSYWVO5103/16/2025 5:38 AM EST LAVENDER ANTFWDK8703/16/2025 5:38 AM EST PST ETEDDMK2403/16/2025 5:38 AM EST BLUE HYKWUTD6803/16/2025 5:38 AM EST B-TYPE NATRIURETIC PEPTIDEAdd-On03/16/2025 5:38 AM EST RAINBOW BOHNNVDM14/03/2025 5:38 AM EST PM ED CRITICAL KEUFQgpewxp44/03/2025 5:20 AM EST LACTATE W/ VLNWOZWBHT95/03/2025 2:40 AM EST TROP I, HIGH SENSITIVITY 1 HYNMRFBF96/03/2025 2:40 AM EST XR CHEST 1 UIGLHK9503/16/2025 1:52 AM EST BEDSIDE FLHMDKNRwdkasl36/03/2025 1:50 AM EST EXTRA TUBES SST GARIjujlpl35/03/2025 1:35 AM EST EXTRA TUBES LAVENDER DRJInkkopa88/03/2025 1:35 AM EST EXTRA TUBES BLUE DTPObmhnkg59/03/2025 1:35 AM EST EXTRA SWKNMElgqlma58/03/2025 1:35 AM EST TROPONIN I, HIGH SENSITIVITY 0 NAUCAWAB99/03/2025 1:35 AM EST NQAIPQICHATDZ48/03/2025 1:35 AM EST TROPONIN I, HIGH SENSITIVITY 0 JSHNHQAE05/03/2025 1:35 AM EST ECG 12-NWMLDWCV23/03/2025 1:03 AM EST PM ED CENTRAL EKVEKqbifxj01/03/2025 12:57 AM EST PM ED CRITICAL RYSMKtyzvcs41/03/2025 12:57 AM EST TROP I, HIGH SENSITIVITY 1 XKVGKATS69/02/2025 6:53 PM EST SFXOWAWVZGKALY71/02/2025 5:51 PM EST URINE QIDADNGBAKQ19/02/2025 5:51 PM EST ECG 12-TFVEMKIU96/02/2025 5:50 PM EST XR CHEST 1 GUDHIN6403/15/2025 5:48 PM EST PHFUUDBWUW03/02/2025 5:39 PM EST LIVER CUEGEVWHS56/02/2025 5:39 PM EST THYROID PROFILE INCLUDES TSH DU1HQEJ4603/15/2025 5:39 PM EST ULFNNXKZVKKVI52/02/2025 5:39 PM EST LACTATE W/ HTEANMCBYK89/02/2025 5:39 PM EST TROPONIN I, HIGH SENSITIVITY 0 VDZILQJM33/02/2025 5:39 PM EST CBC WITH AUTO OQOBZXQXMHWOCKCH76/02/2025 5:39 PM EST RCZEWHZV59/02/2025 5:39 PM EST PROTIME & TKAOMKX3103/15/2025 5:39 PM EST BASIC METABOLIC EXQAHRDHT42/02/2025 5:39 PM EST TROPONIN I, HIGH SENSITIVITY 0 FMBEVUSS60/02/2025 5:39 PM EST BLOOD OTJDDYVLQHA86/02/2025 5:39 PM EST BLOOD GMYUKBTRATJ26/02/2025 5:39 PM EST ED PHYSICIAN NIHSS AND THROMBOLYTIC GKDTEKMWBrksdmj21/02/2025 5:28 PM EST BEDSIDE KTFEZLSHgqyfyh75/02/2025 5:[address] BRAIN WO CONT STROKE QRIROPFVP68/02/2025 5:15 PM EST ZZFNVWOFJSiccgnf20/18/2025 4:52 AM EST COMPREHENSIVE METABOLIC UGFNXHwfxdaj12/18/2025 4:52 AM EST CBC WITH AUTO RDLTRYUUMBFVCahydsp77/18/2025 4:52 AM EST HEMODIALYSIS / ULTRAFILTRATION - WKZJQYuzncsj03/17/2025 1:48 PM EST GLFZSSSSWJlrikan59/17/2025 7:19 AM EST COMPREHENSIVE METABOLIC MYVEXBdgscsj32/17/2025 7:19 AM EST CBC WITH AUTO BLXPAXZTFXLVUhsyahh65/17/2025 7:19 AM EST BEDSIDE PBFRHVSGydzovk96/16/2025 8:31 AM EST LYYAUUYXTXlnhfnt61/16/2025 3:18 AM EST COMPREHENSIVE METABOLIC NSOKKRayxthx29/16/2025 3:18 AM EST CBC WITH AUTO QWLGBASQRKBHWgfhdnq86/16/2025 3:18 AM EST BEDSIDE VEAEJQWJeprvhq88/15/2025 8:56 PM EST BEDSIDE VEAKAHQFmojlbn92/15/2025 4:45 PM EST BEDSIDE YYYYSGQKqfudbx64/15/2025 8:43 AM EST NGGQVSMESVtrxogf35/15/2025 4:57 AM EST COMPREHENSIVE METABOLIC KAJFOJvhbecw49/15/2025 4:57 AM EST CBC WITH AUTO YRBSDKBBSBPHCnfldww25/15/2025 4:57 AM EST BEDSIDE XFDLFXALpozrrz27/14/2025 8:51 PM EST BEDSIDE YNMOYEDFgqgnuh60/14/2025 5:10 PM EST HEMODIALYSIS / ULTRAFILTRATION - FMHIOGkurxak85/14/2025 12:27 PM EST HEPATITIS C(HCV) ANTIBODY W/REFLEX TO SOXZvqoltb22/14/2025 10:23 AM EST HEPATITIS B SURFACE ANTIBODY LKXMRDYVTLCCPuubwuk00/14/2025 10:23 AM EST HEPATITIS B SURFACE OHHYRZUVorieqp63/14/2025 10:23 AM EST C-REACTIVE IZQYQUWUbejugi15/14/2025 6:29 AM EST THIAMIN (VITAMIN B1), DZBwrpzql75/14/2025 6:29 AM EST VITAMIN D 25 HXLRUPWOsldqmy88/14/2025 6:29 AM EST IRON AND UMDWRolqcup72/14/2025 6:29 AM EST VITAMIN X95Pdcqbbd86/14/2025 6:29 AM EST ENQXSZCoyzfxf98/14/2025 6:29 AM EST OTNPORNUKuqvdqk59/14/2025 6:29 AM EST THYROID PROFILE INCLUDES TSH YD8Aejoibu30/14/2025 6:29 AM EST DTKPGTVYXSuuqlqr58/14/2025 6:29 AM EST COMPREHENSIVE METABOLIC GBEUNYsmktpf66/14/2025 6:29 AM EST CBC WITH AUTO JGXUBOETXIIIIvjnqzg54/14/2025 6:[address] BRAIN WO ZBNMZJIV05/13/2025 7:25 PM EST LACTATE W/ PNOBTGMDVF52/13/2025 5:20 PM EST TROP I, HIGH SENSITIVITY 1 YBBFEPVD40/13/2025 5:20 PM EST BLOOD SQJGURTXQSU79/13/2025 5:20 PM EST BLOOD HLWNQOJXZJS97/13/2025 5:20 PM EST XR CHEST 1 DFSOJH0302/24/2025 4:50 PM EST POCT NURSING URINE MACROSCOPIC NHSiqdlzd36/13/2025 4:23 PM EST ER EXTRA URINE GQZEGNVTHVG96/13/2025 4:22 PM EST ER EXTRA URINE QFLFEMOIXM95/13/2025 4:21 PM EST ER EXTRA EYGTPLKDD10/13/2025 4:21 PM EST URINE NYSTWGLXEBE14/13/2025 4:21 PM EST ECG 12-JLPGOIEQ35/13/2025 4:18 PM EST TROPONIN I, HIGH SENSITIVITY 0 PAREQDGX15/13/2025 4:13 PM EST HLJMYEIQIUKOP62/13/2025 4:13 PM EST TROPONIN I, HIGH SENSITIVITY 0 TCSUMFDF55/13/2025 4:13 PM EST COMPREHENSIVE METABOLIC WWWJDQEEL30/13/2025 4:13 PM EST CBC WITH AUTO DIEMABUJMEEHYVME62/13/2025 4:13 PM EST from Last 3 Months Results * SARS CoV 2 by NAAT/Molecular (03/24/2025 4:53 PM EST)ComponentValueRef Range Test MethodAnalysis TimePerformed AtPathologist SignatureSARS COV 2Not DetectedNot Taqptvcu20/11/2025 6:11 PM [facility] Specimen (Source)Anatomical Location / LateralityCollection Method / Volume Collection TimeReceived TimeSwabNasopharyngeal structure / Jlsznvt4803/24/2025 4:53 PM EST03/24/2025 5:15 PM EST Narrative [facility] - 03/24/2025 6:11 PM EST The [...] operators who are performing tests using either GeneFormatta DX or Vidit systems and is limited to laboratories that [...] repeat. Authorizing ProviderResult TypeResult StatusTaylor Trey Albert MDMICROBIOLOGY - GENERAL ORDERABLESFinal ResultPerforming OrganizationAddressCity/State/ZIP Code Phone Number [facility] [address] [place] [address], * (ABNORMAL) Hemoglobin and hematocrit, blood (03/24/2025 4:37 PM EST) Only the most recent of5 resultswithin the time period is included. ComponentValueRef RangeTest MethodAnalysis TimePerformed AtPathologist Signature Hemoglobin8.7(L)13 - 17 g/dL03/24/2025 5:02 PM [facility] UCSPUOOJQIBmbbpmdths64.6(L)39 - 50 %03/24/2025 5:02 PM [facility] LABORATORYSpecimen (Source)Anatomical Location / LateralityCollection Method / VolumeCollection TimeReceived TimeBloodVenous blood / Unknown Venipuncture / Tbhoxuj5103/24/2025 4:37 PM EST03/24/2025 4:48 PM EST Narrative Authorizing ProviderResult TypeResult StatusTaylor Trey Albert MDCUSHING [facility] BLOOD ORDERABLESFinal ResultPerforming OrganizationAddressCity/State/ZIP CodePhone Number [facility] [address] [place] [address], * Hemodialysis inpatient (03/24/2025 3:23 PM EST) [...] Glucose (POC)133(H)65 - 99 mg/dL03/24/2025 2:37 PM [facility] LAB[facility]ATORYSpecimen (Source)Anatomical Location / LateralityCollection Method / VolumeCollection TimeReceived Timearterial/xagvylhkv38/11/2025 2:32 PM EST 03/24/2025 2:37 PM EST Narrative Authorizing ProviderResult TypeResult StatusTaylor J Roosevelt MDPOINT OF CARE TEST ORDERABLESFinal ResultPerforming OrganizationAddressCity/State/ZIP Code Phone Number [facility] [address] [place] [address], * Fluoroscopy swallow motility function (03/24/2025 10:41 [...] PM Authorizing ProviderResult TypeResult StatusTaylor Trey Albert MDIMChhaya FLUOROSCOPY ORDERABLESFinal Result * (ABNORMAL) CBC auto differential (03/24/2025 5:47 AM EST) Only the most recent of15 resultswithin the time period is included. ComponentValueRef RangeTest MethodAnalysis TimePerformed AtPathologist Signature WBC4.54 - 11 10^9/03/24/2025 6:46 AM [facility] LABORATORYRBC Count2.33(L)4.1 - 5.7 10^12/L105/25/2024 6:46 AM [facility] LABORATORYHemoglobin7.4(L)13 - 17 g/dL03/24/2025 6:46 AM [facility] FHBDNEXLRJXddocfurdf42.9(L)39 - 50 %03/24/2025 6:46 AM [facility] DNAFFCXFBXYMF1858 - 100 fL03/24/2025 6:46 AM [facility] LVQVGCHZGBTIL00.927 - 34 pg03/24/2025 6:46 AM [facility] QSYDAFEMDSHNIW75.832 - 36 g/dL03/24/2025 6:46 AM [facility] GMLIMGFCVECGI47.5(H)11.5 - 15 %03/24/2025 6:46 AM [facility] LABORATORYPlatelet [id number] - 450 10^9/L105/25/2024 6:46 AM [facility] LABORATORYMPV6.9(L)7 - 12 fL03/24/2025 6:46 AM [facility] LABORATORYNeutrophils %64.1%03/24/2025 6:46 AM [facility] LABORATORYLymphocytes %18.4%03/24/2025 6:46 AM [facility]ORATORYMonocytes %8.0%03/24/2025 6:46 AM [facility] LABORATORYEosinophils %8.3%03/24/2025 6:46 AM [facility]ORATORYBasophils %1.2%03/24/2025 6:46 AM [facility] LABORATORYNeutrophils Absolute (A)2.91.5 - 6.6 10^9/L105/25/2024 6:46 AM [facility] LABORATORYLymphocytes Absolute0.8(L)1.0 - 3.5 10^9/L 03/24/2025 6:46 AM [facility] LABORATORYMonocytes Absolute0.4 0.0 - 0.9 10^9/L105/25/2024 6:46 AM [facility] Eosinophils Absolute0.40.0 - 0.4 10^9/L105/25/2024 6:46 AM [facility] LABORATORYBasophils Absolute0.10.0 - 0.2 10^9/L105/25/2024 6:46 AM [facility] LABORATORYDifferential TypeAUTOMATED DIFFERENTIAL 03/24/2025 6:46 AM [facility] LABORATORYSpecimen (Source) Anatomical Location / LateralityCollection Method / VolumeCollection Time Received TimeBloodVenous blood / UnknownVenipuncture / Xbytxby9803/24/2025 5:47 AM EST03/24/2025 6:32 AM EST Narrative Authorizing ProviderResult TypeResult StatusRujanie ARCHIBALD BLOOD ORDERABLES Final ResultPerforming OrganizationAddressCity/State/ZIP CodePhone Number [facility] [address] [place] [address], * CK Total (03/24/2025 5:47 AM EST) Only the most recent of3 resultswithin the time period is included. ComponentValueRef RangeTest MethodAnalysis TimePerformed AtPathologist Signature [id number] - 195 U/L105/25/2024 7:06 AM [facility] Specimen (Source)Anatomical Location / LateralityCollection Method / Volume Collection TimeReceived TimeBloodVenous blood / UnknownVenipuncture / Unknown 03/24/2025 5:47 AM EST03/24/2025 6:32 AM EST Narrative Authorizing ProviderResult TypeResult StatusLamich Sanford GLOBAL ENGINEERING MANAGER-CNPLAB BLOOD ORDERABLESFinal ResultPerforming OrganizationAddressCity/State/ZIP CodePhone Number [facility] [address] [place] [phone], * (ABNORMAL) Comprehensive metabolic panel (03/24/2025 5:47 AM EST) Only the most recent of14 resultswithin the time period is included. ComponentValueRef RangeTest MethodAnalysis TimePerformed AtPathologist Signature QERMJB252(H)134 - 146 mmol/L105/25/2024 7:06 AM [facility] LABORATORYPOTASSIUM4.63.5 - 5.0 mmol/L105/25/2024 7:06 AM [facility] NMKLILPRMXHJHPORHG556(H)98 - 109 mmol/L105/25/2024 7:06 AM [facility] LABORATORYCARBON OMZLSSA7582 - 32 mmol/L105/25/2024 7:06 AM [facility] LABORATORYANION GAP75 - 15 mmol/L105/25/2024 7:06 AM [facility] LABORATORYBLOOD UREA VRQORTFS24(H)5 - 27 mg/dL 03/24/2025 7:06 AM [facility] LABORATORYCREATININE2.22(H)0.60 - 1.30 mg/dL03/24/2025 7:06 AM [facility] LABORATORYComment: METHOD TRACEABLE TO IDMS RBJFMYEHMIRYQBX685(H)65 - 99 mg/dL03/24/2025 7:06 AM [facility] LABORATORYCALCIUM9.38.5 - 10.5 mg/dL03/24/2025 7:06 AM [facility] LABORATORYTOTAL PROTEIN6.36.0 - 8.0 g/dL 03/24/2025 7:06 AM [facility] LABORATORYALBUMIN3.43.2 - 5.3 g/dL03/24/2025 7:06 AM [facility] LABORATORYALKALINE FOZQSNLAEJY494(H)39 - 130 U/L105/25/2024 7:06 AM [facility] YHGNXFNJSSNBJ07<=41 U/L105/25/2024 7:06 AM [facility] ALT8<=40 U/L105/25/2024 7:06 AM [facility] BILIRUBIN,TOTAL0.60.3 - 1.2 mg/dL03/24/2025 7:06 AM [facility] LABORATORYEGFR Non-Race Tmkvuvgvg43(L)>=60 ml/min/1.73sq.m105/25/2024 7:06 AM [facility] LABORATORYComment: Reported eGFR is based on the CKD-EPI 2020 equation that does not use a race coefficient. Specimen (Source)Anatomical Location / LateralityCollection Method / Volume Collection TimeReceived TimeBloodVenous blood / UnknownVenipuncture / Unknown 03/24/2025 5:47 AM EST03/24/2025 6:32 AM EST Narrative Authorizing ProviderResult TypeResult StatusRujanie ARCHIBALD BLOOD ORDERABLES Final ResultPerforming OrganizationAddressCity/State/ZIP CodePhone Number [facility] [address] [place] [address], * Hemodialysis inpatient (03/23/2025 12:34 PM EST) Narrative Summer Rosenbaum RN - 03/23/2025 12:34 PM EST Summer Rosenbaum RN 03/23/2025 12:38 PM Dialysis held today per nephrology Dr. Nuñez Authorizing ProviderResult TypeResult StatusDariver Nuñez MDDIALYSIS ORDERABLES Final Result * Magnesium (03/23/2025 6:04 AM EST) Only the most recent of12 resultswithin the time period is included. ComponentValueRef RangeTest MethodAnalysis TimePerformed AtPathologist Signature MAGNESIUM2.01.8 - 2.6 mg/dL03/23/2025 7:01 AM [facility] LABORATORYSpecimen (Source)Anatomical Location / LateralityCollection Method / VolumeCollection TimeReceived TimeBloodVenous blood / UnknownVenipuncture / Filgphn6903/23/2025 6:04 AM EST03/23/2025 6:29 AM EST Narrative Authorizing ProviderResult TypeResult StatusPodirk Carlisle MDLAB BLOOD ORDERABLES Final ResultPerforming OrganizationAddressCity/State/ZIP CodePhone Number [facility] [address] [place] [address], * CT abdomen and pelvis without contrast [...] PM Authorizing ProviderResult TypeResult StatusRazi U Joselo MDIMG CT ORDERABLESFinal Result * Transfuse RBC:1 Unit (03/22/2025 12:07 PM EST) Narrative Authorizing ProviderResult TypeResult StatusDustin Albaro GLOBAL ENGINEERING MANAGER-CNPBLOOD TRANSFUSION ORDERABLESFinal Result * (ABNORMAL) Occult blood x 1, stool (03/22/2025 11:59 AM EST)ComponentValueRef RangeTest MethodAnalysis TimePerformed AtPathologist SignatureFECAL OCCULT BLOODPositive(A)Gikfavjm15/09/2025 1:13 PM [facility] LABORATORYSpecimen (Source)Anatomical Location / LateralityCollection Method / VolumeCollection TimeReceived TimeStoolFeces / Kvyhdnw0403/22/2025 11:59 AM EST 03/22/2025 12:10 PM EST Narrative Authorizing ProviderResult TypeResult StatusDustin Albaro GLOBAL ENGINEERING MANAGER-CNPBODY FLUIDS AND STOOLS ORDERABLESFinal ResultPerforming OrganizationAddressCity/State/ZIP CodePhone Number [facility] [address] [place] [address], * ABO Rh Repeat (03/22/2025 7:52 AM EST) Only the most recent of2 resultswithin the time period is included. Specimen (Source)Anatomical Location / LateralityCollection Method / Volume Collection TimeReceived Time03/22/2025 7:52 AM EST Narrative Authorizing ProviderResult TypeResult StatusJessica Anniston Gombash DOBLOOD BANK TEST ORDERABLESFinal ResultPerforming OrganizationAddressCity/State/ZIP Code Phone Number [facility] * Crossmatch RBC:Number of Units: 1 (03/22/2025 7:00 AM EST)ComponentValueRef RangeTest MethodAnalysis TimePerformed AtPathologist SignatureBlood component [id number] BANK - WELLSKYUnit [id number] BANK - WELLSKY Unit ABOOBLOOD BANK - WELLSKYUnit RHPOSBLOOD BANK - WELLSKYCrossmatch CompatibleBLOOD BANK - WELLSKYStatus of unitTRANSFUSEDBLOOD BANK - WELLSKY Expiration [id number] BANK - WELLSKYBB Type Kusgriu0646JAOYP BANK - WELLSKYSpecimen (Source)Anatomical Location / LateralityCollection Method / VolumeCollection TimeReceived TimeBloodVenous blood / Bevxajn7503/22/2025 7:00 AM EST03/22/2025 7:24 AM EST Narrative Authorizing ProviderResult TypeResult StatusDustin Albaro GLOBAL ENGINEERING MANAGER-CNPBLOOD BANK PRODUCT ORDERABLESEdited Result - FinalPerforming OrganizationAddress City/State/ZIP CodePhone Number BLOOD BANK - [place] * Lavender Top (03/22/2025 7:00 AM EST) Only the most recent of2 resultswithin the time period is included. ComponentValueRef RangeTest MethodAnalysis TimePerformed AtPathologist Signature Extra TubeAuto Hzkjunbv02/09/2025 8:01 AM [facility] Specimen (Source)Anatomical Location / LateralityCollection Method / Volume Collection TimeReceived TimeBloodVenous blood / Roaaohc4103/22/2025 7:00 AM EST 03/22/2025 7:13 AM EST Narrative Authorizing ProviderResult TypeResult StatusTaylor Trey Albert [facility] BLOOD ORDERABLESFinal ResultPerforming OrganizationAddressCity/State/ZIP CodePhone Number [facility] [address] [place] [address], * (ABNORMAL) Iron and TIBC (03/22/2025 7:00 AM EST) Only the most recent of2 resultswithin the time period is included. ComponentValueRef RangeTest MethodAnalysis TimePerformed AtPathologist Signature IRON40(L)50 - 212 ug/dL03/22/2025 7:52 AM [facility] IRON XEOGQKV029(L)250 - 425 ug/dL03/22/2025 7:52 AM [facility] LABORATORYIRON GCGOTPOXGK6849 - 50 % NCXLCJQSGE50/09/2025 7:52 AM [facility] LABORATORYSpecimen (Source)Anatomical Location / Laterality Collection Method / VolumeCollection TimeReceived TimeBloodVenous blood / UnknownVenipuncture / Uaiyqju8603/22/2025 7:00 AM EST03/22/2025 7:13 AM EST Narrative Authorizing ProviderResult TypeResult StatusDustin Albaro GLOBAL ENGINEERING MANAGER-CNPLAB BLOOD ORDERABLESFinal ResultPerforming OrganizationAddressCity/State/ZIP CodePhone Number [facility] [address] [place] [address], [place] [phone] * Type and screen(includes indirect bryce) (03/22/2025 7:00 AM EST)Component ValueRef RangeTest MethodAnalysis TimePerformed AtPathologist SignatureABOO 03/22/2025 7:59 AM ESTTTH BB - HNTSCAYXOGxwucfjx16/09/2025 7:59 AM ESTTTH BB - WELLSKYAntibody NuoqxnZawubigo25/09/2025 7:59 AM ESTTT BB - WELLSKYSpecimen (Source)Anatomical Location / LateralityCollection Method / VolumeCollection TimeReceived TimeBloodVenous blood / UnknownVenipuncture / Xoikjfz6003/22/2025 7:00 AM EST03/22/2025 7:02 AM EST Narrative Authorizing ProviderResult TypeResult StatusDustin Albaro GLOBAL ENGINEERING MANAGER-CNPBLOOD BANK TEST ORDERABLESEdited Result - FinalPerforming OrganizationAddressCity/State/ZIP CodePhone Number [facility] BB - [facility] [address] [place] [address], * Folate (03/22/2025 7:00 AM EST) Only the most recent of2 resultswithin the time period is included. ComponentValueRef RangeTest MethodAnalysis TimePerformed AtPathologist Signature FOLIC ACID17.6>5.8 ng/mL03/22/2025 8:34 AM [facility] LABORATORYSpecimen (Source)Anatomical Location / LateralityCollection Method / VolumeCollection TimeReceived TimeBloodVenous blood / UnknownVenipuncture / Uxoivzn4603/22/2025 7:00 AM EST03/22/2025 7:13 AM EST Narrative Authorizing ProviderResult TypeResult StatusTaylor Trey Albert MDLAB BLOOD ORDERABLESFinal ResultPerforming OrganizationAddressCity/State/ZIP CodePhone Number [facility] [address] [place] [address], * (ABNORMAL) Ferritin (03/22/2025 7:00 AM EST) Only the most recent of2 resultswithin the time period is included. ComponentValueRef RangeTest MethodAnalysis TimePerformed AtPathologist Signature YASBBSTG821(H)24 - 336 ng/mL03/22/2025 8:30 AM [facility] LABORATORYSpecimen (Source)Anatomical Location / LateralityCollection Method / VolumeCollection TimeReceived TimeBloodVenous blood / UnknownVenipuncture / Gnjqmnr8203/22/2025 7:00 AM EST03/22/2025 7:13 AM EST Narrative Authorizing ProviderResult TypeResult StatusTaylor Trey ARCHIBALD BLOOD ORDERABLESFinal ResultPerforming OrganizationAddressCity/State/ZIP CodePhone Number [facility] [address] [place] [address], * Vitamin B12 (03/22/2025 7:00 AM EST) Only the most recent of2 resultswithin the time period is included. ComponentValueRef RangeTest MethodAnalysis TimePerformed AtPathologist Signature VITAMIN [id number] - 914 pg/mL03/22/2025 8:35 AM [facility] LABORATORYSpecimen (Source)Anatomical Location / LateralityCollection Method / VolumeCollection TimeReceived TimeBloodVenous blood / UnknownVenipuncture / Kmxohmi0303/22/2025 7:00 AM EST03/22/2025 7:13 AM EST Narrative Authorizing ProviderResult TypeResult StatusTaylor Trey ARCHIBALD BLOOD ORDERABLESFinal ResultPerforming OrganizationAddressCity/State/ZIP CodePhone Number [facility] [address] [place] [address], * Troponin I, High Sensitivity 1 Hour (03/21/2025 5:08 PM EST) Only the most recent of4 resultswithin the time period is included. ComponentValueRef RangeTest MethodAnalysis TimePerformed AtPathologist Signature TROPONIN I, HIGH ECWGOXDBHIV47<21 ng/L105/22/2024 6:38 PM [facility] LABORATORYSpecimen (Source)Anatomical Location / LateralityCollection Method / VolumeCollection TimeReceived TimeBloodVenous blood / Unknown Venipuncture / Dzjpxsv7603/21/2025 5:08 PM EST03/21/2025 5:59 PM EST Narrative Authorizing ProviderResult TypeResult StatusTaylor Trey ARCHIBALD BLOOD ORDERABLESFinal ResultPerforming OrganizationAddressCity/State/ZIP CodePhone Number [facility] [address] [place] [address], * ECG 12 Lead (03/21/2025 3:44 PM EST) Only the most recent of4 resultswithin the time period is included. Specimen (Source)Anatomical Location / LateralityCollection Method / Volume Collection TimeReceived Time03/21/2025 3:44 PM EST Narrative [facility] - 03/22/2025 8:33 AM EST Authorizing ProviderResult TypeResult StatusTaylmaritza ROJOG ORDERABLES Final ResultPerforming OrganizationAddressty/State/ZIP CodePhone Number [facility] * Troponin I, High Sensitivity 0 Hour (03/21/2025 3:18 PM EST) Only the most recent of4 resultswithin the time period is included. ComponentValueRef RangeTest MethodAnalysis TimePerformed AtPathologist Signature TROPONIN I, HIGH AACTNNTEUUG11<21 ng/L105/22/2024 4:00 PM [facility] LABORATORYSpecimen (Source)Anatomical Location / LateralityCollection Method / VolumeCollection TimeReceived TimeBloodVenous blood / Unknown Venipuncture / Agkauju1103/21/2025 3:18 PM EST03/21/2025 3:26 PM EST Narrative Authorizing ProviderResult TypeResult StatusTaylmaritza ARCHIBALD BLOOD ORDERABLESFinal ResultPerforming OrganizationAddressCity/State/ZIP CodePhone Number [facility] [address] [place] [address], * Hemodialysis inpatient (03/21/2025 2:30 PM EST) Narrative Huyendwayne AdelaideMICHAEL - 03/21/2025 2:30 PM EST Adelaide MICHAEL Garza 03/21/2025 3:20 PM Patient completed 82 minutes [...] CULTURE RESULTSNO GROWTH 5 DAYS03/24/2025 8:02 AM [facility] LABORATORYSpecimen (Source)Anatomical Location / LateralityCollection Method / VolumeCollection TimeReceived TimeBloodVenous blood / UnknownVenipuncture / Gfsguac4703/19/2025 6:49 AM EST03/19/2025 7:01 AM EST Narrative [facility] - 03/24/2025 8:02 AM EST Suboptimal volume of blood collected, Results may be affected. Authorizing ProviderResult TypeResult StatusMaram Fany rTacy MDMICROBIOLOGY - GENERAL ORDERABLESFinal ResultPerforming OrganizationAddressCity/State/ZIP CodePhone Number [facility] [address] [place] [address], [place] [phone] * X-ray chest 1 view (03/19/2025 4:52 [...] MethodAnalysis TimePerformed AtPathologist SignatureCORTISOL, TOTAL17.2ug/dL03/18/2025 3:25 PM [facility] LABORATORYSpecimen (Source)Anatomical Location / LateralityCollection Method / VolumeCollection TimeReceived TimeBloodVenous blood / Lgrgfpy2403/18/2025 2:24 PM EST03/18/2025 2:42 PM EST Narrative [facility] - 03/18/2025 3:25 PM EST Due to the diurnal variation of cortisol levels in normal subjects, all cortisol measurments should be referenced to the time of day of sample collection. AM Cortisol Age>=6 6.7-22.4 ug/dL PM Cortisol Age>=6 <10 ug/dL Authorizing ProviderResult TypeResult StatusCelina OLMEDO BLOOD ORDERABLESFinal ResultPerforming OrganizationAddressCity/State/ZIP CodePhone Number [facility] [address] [place] [address], * Hemodialysis inpatient (03/18/2025 11:02 AM EST) [...] AtPathologist SignatureHemoglobin7.4(L)13 - 17 g/dL03/18/2025 5:28 AM [facility] LABORATORYSpecimen (Source) Anatomical Location / LateralityCollection Method / VolumeCollection Time Received TimeBloodVenous blood / Ylzgrzo8803/18/2025 5:03 AM EST03/18/2025 5:11 AM EST Narrative Authorizing ProviderResult TypeResult StatusElvira ARCHIBALD BLOOD ORDERABLES Final ResultPerforming OrganizationAddressCity/State/ZIP CodePhone Number [facility] [address] [place] [address], [place] [phone] * (ABNORMAL) Procalcitonin (03/18/2025 2:03 AM EST)ComponentValueRef RangeTest MethodAnalysis TimePerformed AtPathologist AtwxtwyleUYXIHJLCNONXW03.33(H)<0.05 ng/mL03/18/2025 7:56 AM [facility] LABORATORYSpecimen (Source)Anatomical Location / LateralityCollection Method / VolumeCollection TimeReceived TimeBloodVenous blood / Plyolyz2803/18/2025 2:03 AM EST03/18/2025 2:16 AM EST Narrative [facility] - 03/18/2025 7:56 AM EST <0.50 ng/mL - Low risk of severe sepsis and/or septic shock. <2.00 ng/mL - Recommend retesting within 6-24 hours. >2.00 ng/mL - High risk of sepsis and/or septic shock. Authorizing ProviderResult TypeResult StatusJasper Tracy DELAB BLOOD ORDERABLESFinal ResultPerforming OrganizationAddressCity/State/ZIP CodePhone Number [facility] [address] [place] [address], * Ionized magnesium (03/17/2025 11:36 AM EST)ComponentValueRef RangeTest Method Analysis TimePerformed AtPathologist SignatureIONIZED MAGNESIUM0.650.45 - 0.74 mmol/L105/18/2024 12:07 PM [facility] LABORATORYSpecimen (Source)Anatomical Location / LateralityCollection Method / VolumeCollection TimeReceived TimeBloodVenous blood / Vvylafb1603/17/2025 11:36 AM EST03/17/2025 11:46 AM EST Narrative Authorizing ProviderResult TypeResult StatusSumit Osborne [facility] BLOOD ORDERABLESFinal ResultPerforming OrganizationAddressCity/State/ZIP CodePhone Number [facility] [address] [place] [address], * Potassium (03/17/2025 6:27 AM EST)ComponentValueRef RangeTest MethodAnalysis TimePerformed AtPathologist SignaturePOTASSIUM4.33.5 - 5.0 mmol/L105/18/2024 7:05 AM [facility] LABORATORYSpecimen (Source)Anatomical Location / LateralityCollection Method / VolumeCollection TimeReceived Time BloodVenous blood / Jhuvjxl1103/17/2025 6:27 AM EST03/17/2025 6:38 AM EST Narrative Authorizing ProviderResult TypeResult StatusSumit Osborne MDLAB BLOOD ORDERABLESFinal ResultPerforming OrganizationAddressCity/State/ZIP CodePhone Number [facility] [address] [place] [address], * Hemodialysis inpatient (03/16/2025 5:32 PM EST) Narrative Adriane Shen RN - 03/16/2025 5:32 PM EST Adriane Shen RN 03/16/2025 5:34 PM Pt dialyzed for 3 hours with a net gain of 0.1kg Pre wt 83.6kg Poist wt 83.7kg Access functioned well at ordered pump speed. Vancomycin was given at last hour. ??Primary nurse, En, will give arenesp. Authorizing ProviderResult TypeResult StatusDanial Nuñez MDDIALYSIS ORDERABLES Final Result * Mrsa Pcr nasal swab (03/16/2025 7:48 AM EST)ComponentValueRef RangeTest Method Analysis TimePerformed AtPathologist SignatureMRSA PCR NASALNegativeNegative 03/16/2025 9:59 AM [facility] LABORATORYSpecimen (Source) Anatomical Location / LateralityCollection Method / VolumeCollection Time Received TimeSwabStructure of anterior naris / Msfokwr9703/16/2025 7:48 AM EST 03/16/2025 8:46 AM EST Narrative Authorizing ProviderResult TypeResult StatusRupesh Ramtel MDMICROBIOLOGY - GENERAL ORDERABLESFinal ResultPerforming OrganizationAddressCity/State/ZIP Code Phone Number [facility] [address] [place] [address], [place] [phone] * S Pneumoniae AG, urine (03/16/2025 7:48 AM EST)ComponentValueRef RangeTest MethodAnalysis TimePerformed AtPathologist SignatureS PNEUMONIAE AG UNegative Lovncmuj56/03/2025 10:25 AM [facility] LABORATORYSpecimen (Source)Anatomical Location / LateralityCollection Method / VolumeCollection TimeReceived TimeUrineUrine / Clsmvvn4503/16/2025 7:48 AM EST03/16/2025 9:20 AM EST Narrative Authorizing ProviderResult TypeResult StatusRupesjulian BEJARANO ORDERABLES Final ResultPerforming OrganizationAddressCity/State/ZIP CodePhone Number [facility] [address] [place] [address], [place] [phone] * Resp Pathogens Panel/SARS CoV-2 (03/16/2025 7:48 AM EST)ComponentValueRef RangeTest MethodAnalysis TimePerformed AtPathologist SignatureSARS COV 2 BY PCRNot DetectedNot Lttjtrli87/03/2025 9:49 AM [facility] LABORATORYADENOVIRUSNot DetectedNot Yukzyioy52/03/2025 9:49 AM [facility] LABORATORYCORONAVIRUS 229ENot DetectedNot Jcmddjev03/03/2025 9:49 AM [facility] LABORATORYCORONAVIRUS ZIY7Voq DetectedNot Jnbjmaft66/03/2025 9:49 AM [facility] LABORATORYCORONAVIRUS RK80Vwo DetectedNot Gtcsmztc81/03/2025 9:49 AM [facility] LABORATORYCORONAVIRUS IP15Aym DetectedNot Ctxosite82/03/2025 9:49 AM [facility] LABORATORYHUMAN METAPNEUVIRUSNot DetectedNot Detected 03/16/2025 9:49 AM [facility] LABORATORYRHINO/ENTEROVIRUSNot DetectedNot Fbufoedg27/03/2025 9:49 AM [facility] INFLUENZA ANot DetectedNot Hyxihcys85/03/2025 9:49 AM [facility] LABORATORYINFLUENZA BNot DetectedNot Yffwoiph59/03/2025 9:49 AM [facility] LABORATORYPARAINFLUENZA 1Not DetectedNot Detected 03/16/2025 9:49 AM [facility] LABORATORYPARAINFLUENZA 2Not DetectedNot Vmxibrco89/03/2025 9:49 AM [facility] PARAINFLUENZA 3Not DetectedNot Mikqszpr92/03/2025 9:49 AM [facility] LABORATORYPARAINFLUENZA 4Not DetectedNot Rokevmwz65/03/2025 9:49 AM [facility] LABORATORYRESP SYNCYTIAL VIRUSNot DetectedNot Isyenurk10/03/2025 9:49 AM [facility] LABORATORYBORD PARAPERTUSSISNot DetectedNot Iepbezix16/03/2025 9:49 AM [facility] LABORATORYBORDETELLA PERTUSSISNot DetectedNot Ezzukeib11/03/2025 9:49 AM [facility] LABORATORYCHLAM.PNEUMONIAENot DetectedNot Vhpqqfvr26/03/2025 9:49 AM [facility] LABORATORYMYCOPLASMA PNEUMONIAENot DetectedNot Dennvack67/03/2025 9:49 AM [facility] LABORATORYSpecimen (Source)Anatomical Location / LateralityCollection Method / VolumeCollection TimeReceived TimeSwabNasopharyngeal structure / Jkgaznv7603/16/2025 7:48 AM EST03/16/2025 8:46 AM EST [facility] LABORATORY - 03/16/2025 9:49 AM EST [email or web address] Respiratory Panel 2.1 (RP2.1) is a multiplexed [...] possible respiratory tract infection. Authorizing ProviderResult TypeResult Anjelica CONTRERASICROBIOLOGY - GENERAL ORDERABLESFinal ResultPerforming OrganizationAddressCity/State/ZIP Code Phone Number [facility] [address] [place] [address], * Legionella antigen, urine (03/16/2025 7:48 AM EST)ComponentValueRef RangeTest MethodAnalysis TimePerformed AtPathologist SignatureLEGIONELLA URINE AG Negative, No L. pneumophila serogroup 1 AntigenNegative, No L. pneumophila serogroup 1 Vwmaxhv5603/16/2025 10:25 AM [facility] Specimen (Source)Anatomical Location / LateralityCollection Method / Volume Collection TimeReceived TimeUrineUrine / Ioolpct0503/16/2025 7:48 AM EST 03/16/2025 9:20 AM EST Narrative Authorizing ProviderResult TypeResult Anjelica Mccabe MDURINE ORDERABLES Final ResultPerforming OrganizationAddressCity/State/ZIP CodePhone Number [facility] [address] [place] [address], * Salas Top On Ice (03/16/2025 5:38 AM EST)ComponentValueRef RangeTest Method Analysis TimePerformed AtPathologist SignatureExtra TubeAuto Resulted 03/16/2025 7:01 AM [facility] LABORATORYSpecimen (Source) Anatomical Location / LateralityCollection Method / VolumeCollection Time Received TimeBloodVenous blood / Dwsubzg4103/16/2025 5:38 AM EST03/16/2025 5:48 AM EST Narrative Authorizing ProviderResult TypeResult StatusDavid Fritz DOLAB BLOOD ORDERABLES Final ResultPerforming OrganizationAddressCity/State/ZIP CodePhone Number [facility] [address] [place] [address], * Lavender Top (03/16/2025 5:38 AM EST)ComponentValueRef RangeTest Method Analysis TimePerformed AtPathologist SignatureExtra TubeAuto Resulted 03/16/2025 7:01 AM [facility] LABORATORYSpecimen (Source) Anatomical Location / LateralityCollection Method / VolumeCollection Time Received TimeBloodVenous blood / Zowhivd6203/16/2025 5:38 AM EST03/16/2025 5:48 AM EST Narrative Authorizing ProviderResult TypeResult StatusDavid Fritz DOLAB BLOOD ORDERABLES Final ResultPerforming OrganizationAddressCity/State/ZIP CodePhone Number [facility] [address] [place] [address], * PST TOP (03/16/2025 5:38 AM EST)ComponentValueRef RangeTest MethodAnalysis TimePerformed AtPathologist SignatureExtra TubeAuto Yyzvtllz96/03/2025 7:01 AM [facility] LABORATORYSpecimen (Source)Anatomical Location / LateralityCollection Method / VolumeCollection TimeReceived TimeBloodVenous blood / Vcbdbjn0703/16/2025 5:38 AM EST03/16/2025 5:48 AM EST Narrative Authorizing ProviderResult TypeResult StatusDavid Fritz DOLAB BLOOD ORDERABLES Final ResultPerforming OrganizationAddressCity/State/ZIP CodePhone Number [facility] [address] [place] [address], * Light Blue Top (03/16/2025 5:38 AM EST)ComponentValueRef RangeTest Method Analysis TimePerformed AtPathologist SignatureExtra TubeAuto Resulted 03/16/2025 7:01 AM [facility] LABORATORYSpecimen (Source) Anatomical Location / LateralityCollection Method / VolumeCollection Time Received TimeBloodVenous blood / Ejffvnn7003/16/2025 5:38 AM EST03/16/2025 5:48 AM EST Narrative Authorizing ProviderResult TypeResult StatusDavid Fritz DOLAB BLOOD ORDERABLES Final ResultPerforming OrganizationAddressCity/State/ZIP CodePhone Number [facility] [address] [place] [address], [place] [phone] * (ABNORMAL) B-type natriuretic peptide (03/16/2025 5:38 AM EST)ComponentValue Ref RangeTest MethodAnalysis TimePerformed AtPathologist LocpcquzfPSE259(H) <=100 pg/mL03/16/2025 8:11 AM [facility] LABORATORYSpecimen (Source)Anatomical Location / LateralityCollection Method / VolumeCollection TimeReceived TimeBloodVenous blood / Oofwqsg8103/16/2025 5:38 AM EST03/16/2025 5:48 AM EST Narrative Authorizing ProviderResult TypeResult StatusRujanie ARCHIBALD BLOOD ORDERABLES Final ResultPerforming OrganizationAddressCity/State/ZIP CodePhone Number [facility] [address] [place] [address], * Critical Care (03/16/2025 5:20 AM EST) Aurelio Wong DO - 03/16/2025 5:20 AM EST Aurelio Fritz DO 03/18/2025 12:26 AM Critical Care Performed by: Aurelio Fritz DO Authorized by: Aureloi Fritz DO ?? Critical care provider statement: [...] LACTATE W/REFLEX1.10.4 - 2.0 mmol/L105/17/2024 3:00 AM [facility] (Source)Anatomical Location / LateralityCollection Method / VolumeCollection TimeReceived TimeBloodVenous blood / Unknown Venipuncture / Vmfkvyp7303/16/2025 2:40 AM EST03/16/2025 2:40 AM EST Narrative [facility] - 03/16/2025 3:00 AM EST Result did not trigger repeat Lactate, re-order if needed. Authorizing ProviderResult TypeResult StatusJohn ARCHIBALD BLOOD ORDERABLES Final ResultPerforming OrganizationAddressCity/State/ZIP CodePhone Number [address] [place] [address], [place] * SST TOP (03/16/2025 1:35 AM EST)ComponentValueRef RangeTest MethodAnalysis TimePerformed AtPathologist SignatureExtra TubeAuto Vqyztmjo99/03/2025 3:02 AM [facility] (Source)Anatomical Location / LateralityCollection Method / VolumeCollection TimeReceived TimeBloodVenous blood / Nhkublk4903/16/2025 1:35 AM EST03/16/2025 1:39 AM EST Narrative Authorizing ProviderResult TypeResult StatusJohn ARCHIBALD BLOOD ORDERABLES Final ResultPerforming OrganizationAddressCity/State/ZIP CodePhone Number [address] [place] [address], [place] * Light Blue Top (03/16/2025 1:35 AM EST)ComponentValueRef RangeTest Method Analysis TimePerformed AtPathologist SignatureExtra TubeAuto Resulted 03/16/2025 3:02 AM [facility]Cl[facility] (Source) Anatomical Location / LateralityCollection Method / VolumeCollection Time Received TimeBloodVenous blood / Tjuxgnj9203/16/2025 1:35 AM EST03/16/2025 1:39 AM EST Narrative Authorizing ProviderResult TypeResult StatusJohn ARCHIBALD BLOOD ORDERABLES Final ResultPerforming OrganizationAddressCity/State/ZIP CodePhone Number [facility] [address] [place] [address], * Critical Care (03/16/2025 12:57 AM EST) [...] the following conditions: ??Cardiac failure, circulatory failure, 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 Authorizing ProviderResult TypeResult Virgil Cantrell MDPROCEDURE/MINOR SURGICAL ORDERABLESFinal Result * Central Line: R femoral (03/16/2025 12:57 AM EST) Narrative John Cantrell [...] ??Alternatives discussed: ??No treatment and delayed treatment [place] protocol: ??Procedure explained and questions answered to [...] flow ??Procedure completion: ??Tolerated Authorizing ProviderResult TypeResult StatusRyan H Óscar MDPROCEDURE/MINOR SURGICAL ORDERABLESFinal Result * (ABNORMAL) Urinalysis (03/15/2025 5:51 PM EST)ComponentValueRef RangeTest MethodAnalysis TimePerformed AtPathologist SignatureCOLORYellowYellow 03/15/2025 7:20 PM ESTCLERMONT COUNTY HOSPITALTURBIDITYClearClear 03/15/2025 7:20 PM [facility]PECIFIC GRAVITY1.015 1.003 - 1.79159/05/2024 7:20 PM ESTCLERMONT COUNTY HOSPITALNITRITE UfexofwtZroochig47/02/2025 7:20 PM [facility] PH,URINE7.05.0 - 8. 7:20 PM [facility] LEUKOCYTE TEIKMRPSIrzkmxmgXrkltjxd02/02/2025 7:20 PM ESTCLERMONT COUNTY HOSPITALPROTEIN100 mg/dL(A)Ghhyrnps38/02/2025 7:20 PM ESTCLERMONT COUNTY HOSPITALKETONES (URINE)EixyxiptPgobofqs30/02/2025 7:20 PM EST [facility]ITALUROBILINOGEN1.0 eu/dL0.2 eu/dL, 1.0 eu/dL 03/15/2025 7:20 PM ESTCLERMONT COUNTY HOSPITALBILIRUBIN (URINE) UocpudjjRyzsshot94/02/2025 7:20 PM [facility] BLOOD/HGBModerate(A)Ugvswpda35/02/2025 7:20 PM [facility]PITALR.B.CELLS19(H)0 - 7:20 PM [facility]ITALQUAMOUS TKNRQMUQCR01 - 7:20 PM [facility]ITALW.B.CELLS30 - 7:20 PM [facility]PITALGLUCOSE (URINE)NegativeNegative, 250 mg/dL03/15/2025 7:20 PM ESTGENESIS HOSPITALpecimen (Source)Anatomical Location / LateralityCollection Method / VolumeCollection TimeReceived TimeUrineUrine / Vgdimkz0003/15/2025 5:51 PM EST03/15/2025 6:59 PM EST Narrative Authorizing ProviderResult TypeResult StatusGeovany Joseph MDURINE ORDERABLES Final ResultPerforming OrganizationAddressCity/State/ZIP CodePhone Number [facility] [address] [place] [address], [place] * (ABNORMAL) Urine Culture Urine, Indwelling Catheter (03/15/2025 5:51 PM EST) Only the most recent of2 resultswithin the time period is included. ComponentValueRef RangeTest MethodAnalysis TimePerformed AtPathologist Signature CULTURE HVDWRRW42,000-100,000 CFU/mL Enterococcus species(A)03/18/2025 8:20 AM [facility] LABORATORYComment: Ampicillin or Amoxicillin is the drug of choice for uncomplicated cystitis caused by enterococci. Cephalosporins are inappropriate. Specimen (Source)Anatomical Location / LateralityCollection Method / Volume Collection TimeReceived TimeUrine (Urine, Indwelling Catheter)03/15/2025 5:51 PM EST03/15/2025 6:59 PM EST Narrative OrganismAntibioticMethodSusceptibilityEnterococcus speciesAmpicillin >=32.0: Resistant Enterococcus speciesLevofloxacin >=8.0: Resistant Enterococcus speciesNitrofurantoin 32: Susceptible Enterococcus speciesVancomycin <=0.5: Susceptible Enterococcus speciesSusceptibility CommentAuthorizing ProviderResult TypeResult StatusGeovany Joseph [facility]ING HEALTHICROBIOLOGY - GENERAL ORDERABLESFinal ResultPerforming OrganizationAddressCity/State/ZIP CodePhone Number [facility] [address] [place] [address], * Thyroid profile includes TSH FT4 (03/15/2025 5:39 PM EST) Only the most recent of2 resultswithin the time period is included. ComponentValueRef RangeTest MethodAnalysis TimePerformed AtPathologist Signature FREE T41.040.61 - 1.60 ng/dL03/15/2025 6:28 PM ESTCLERMONT COUNTY HOSPITALTSH2.610.49 - 4.67 uIU/mL03/15/2025 6:28 PM [facility]ITALpecimen (Source)Anatomical Location / LateralityCollection Method / VolumeCollection TimeReceived TimeBloodVenous blood / Unknown Venipuncture / Xvuhjnn6103/15/2025 5:39 PM EST03/15/2025 5:43 PM EST Narrative Authorizing ProviderResult TypeResult StatusGeovany Joseph DELAB BLOOD ORDERABLESFinal ResultPerforming OrganizationAddressCity/State/ZIP CodePhone Number [facility] [place] [address], [place] * (ABNORMAL) APTT (03/15/2025 5:39 PM EST)ComponentValueRef RangeTest Method Analysis TimePerformed AtPathologist FtgzvhfboWBXY57(H)26 - 37 sec03/15/2025 5:56 PM ESTPROLos [facility]les [facility] (Source)Anatomical Location / LateralityCollection Method / VolumeCollection TimeReceived Time BloodVenous blood / UnknownVenipuncture / Pxgbzzk6203/15/2025 5:39 PM EST 03/15/2025 5:43 PM EST Narrative Authorizing ProviderResult TypeResult StatusGeovany ARCHIBALD BLOOD ORDERABLESFinal ResultPerforming OrganizationAddressCity/State/ZIP CodePhone Number [address] [place] [address], [place] * (ABNORMAL) Protime & INR (03/15/2025 5:39 PM EST)ComponentValueRef RangeTest MethodAnalysis TimePerformed AtPathologist LdzqszgwcJFWAYLO99.3(H)9.8 - 13.2 sec03/15/2025 5:56 PM ESTCLERMONT COUNTY HOSPITALINR2.1(H)0.9 - 1.2 03/15/2025 5:56 PM ESTCl[facility] Hospital (Source) Anatomical Location / LateralityCollection Method / VolumeCollection Time Received TimeBloodVenous blood / UnknownVenipuncture / Achaogl4903/15/2025 5:39 PM EST03/15/2025 5:43 PM EST Narrative Authorizing ProviderResult TypeResult StatusGeovany ARCHIBALD BLOOD ORDERABLESFinal ResultPerforming OrganizationAddressCity/State/ZIP CodePhone Number [address] [place] [address], [place] * Lipase (03/15/2025 5:39 PM EST)ComponentValueRef RangeTest MethodAnalysis Time Performed AtPathologist UbniecuvvHZDXKC5220 - 40 U/L105/16/2024 6:04 PM EST [facility] (Source)Anatomical Location / LateralityCollection Method / VolumeCollection TimeReceived TimeBloodVenous blood / UnknownVenipuncture / Hgqkkqf1303/15/2025 5:39 PM EST03/15/2025 5:43 PM EST Narrative Authorizing ProviderResult TypeResult StatusGeovany ARCHIBALD BLOOD ORDERABLESFinal ResultPerforming OrganizationAddressCity/State/ZIP CodePhone Number [facility] [address] [place] [address], [place] * (ABNORMAL) Liver panel (03/15/2025 5:39 PM EST)ComponentValueRef RangeTest MethodAnalysis TimePerformed AtPathologist SignatureTOTAL PROTEIN7.66.0 - 8.0 g/dL03/15/2025 6:10 PM ESTCLERMONT COUNTY HOSPITALALBUMIN3.63.2 - 5.3 g/dL03/15/2025 6:10 PM ESTCLERM[facility] BILIRUBIN,TOTAL1.20.3 - 1.2 mg/dL03/15/2025 6:10 PM ESTCLERMONT COUNTY HOSPITALALKALINE HJCEAOARJLH476(H)39 - 130 U/L105/16/2024 6:10 PM EST [facility]ITALAST13<=41 U/L105/16/2024 6:10 PM EST [facility]ITALALT9<=40 U/L105/16/2024 6:10 PM ESTCLERMONT COUNTY HOSPITALBILIRUBIN,DIRECT0.4<=0.4 mg/dL03/15/2025 6:10 PM EST [facility]pec[facility] (Source)Anatomical Location / LateralityCollection Method / VolumeCollection TimeReceived TimeBloodVenous blood / UnknownVenipuncture / Ncfhtjr8003/15/2025 5:39 PM EST03/15/2025 5:43 PM EST Narrative Authorizing ProviderResult TypeResult StatusGeovany ARCHIBALD BLOOD ORDERABLESFinal ResultPerforming OrganizationAddressCity/State/ZIP CodePhone Number [address] [place] [address], [place] * (ABNORMAL) Basic Metabolic Panel (03/15/2025 5:39 PM EST)ComponentValueRef RangeTest MethodAnalysis TimePerformed AtPathologist KogmupxflRAGDOU436851 - 146 mmol/L105/16/2024 6:10 PM ESTCLERMONT COUNTY HOSPITALPOTASSIUM 4.03.5 - 5.0 mmol/L105/16/2024 6:10 PM ESTCLERM[facility] TABBQASB14461 - 109 mmol/L105/16/2024 6:10 PM ESTCLERMONT COUNTY HOSPITALCARBON XKBPXKU2853 - 32 mmol/L105/16/2024 6:10 PM ESTCLERMONT COUNTY HOSPITALANION SVZ524 - 15 mmol/L105/16/2024 6:10 PM [facility]ITALBLOOD UREA PVRWHLOZ78(H)5 - 27 mg/dL03/15/2025 6:10 PM [facility]ITALCREATININE3.13(H)0.70 - 1.20 mg/dL 03/15/2025 6:10 PM [facility]PITALComment:METHOD TRACEABLE TO IDMS XTMYZSGAYCXEUUS165(H)65 - 99 mg/dL03/15/2025 6:10 PM EST [facility]PITALCALCIUM9.28.5 - 10.5 mg/dL03/15/2025 6:10 PM [facility]OSPITALEGFR Non-Race Uuolhowwt55(L)>=60 ml/min/1.73sq.m105/16/2024 6:10 PM [facility] Comment: eGFR not reported due to non-numeric value for Creatinine. Reported eGFR is based on the CKD-EPI 2020 equation that does not use a race coefficient. Specimen (Source)Anatomical Location / LateralityCollection Method / Volume Collection TimeReceived TimeBloodVenous blood / UnknownVenipuncture / Unknown 03/15/2025 5:39 PM EST03/15/2025 5:43 PM EST Narrative Authorizing ProviderResult TypeResult StatusGeovany ARCHIBALD BLOOD ORDERABLESFinal ResultPerforming OrganizationAddressCity/State/ZIP CodePhone Number [facility] [address] [place] [address], * ED NIHSS And Thrombolytic MD Screening (03/15/2025 5:28 PM EST) Narrative Geovany Joseph MD - 03/15/2025 5:28 PM EST Geovany Joseph MD 03/16/2025 1:38 AM ED NIHSS And Thrombolytic Screening Performed by: Geovany Joseph MD Authorized [...] 03/15/2025 5:19 PM Authorizing ProviderResult TypeResult StatusGeovany GRAMAJO CT ORDERABLES Final Result * Hemodialysis / Ultrafiltation - TAB[place] (02/28/2025 1:48 PM EST) Narrative Alexandra Devi RN - 02/28/2025 1:48 PM EST Alexandra [...] RangeTest MethodAnalysis TimePerformed AtPathologist SignatureANTI HCV W/PCR AHYJFNbh-UojugpijQqd-Efxkbngk98/14/2025 2:12 PM [facility] LABORATORYComment: If recent infection suspected, recommend repeat testing (>2 months). Ereuue-ng-ylibyp ratio is <1.0. Specimen (Source)Anatomical Location / LateralityCollection Method / Volume Collection TimeReceived TimeBloodVenous blood / UnknownVenipuncture / Unknown 02/25/2025 10:23 AM EST02/25/2025 10:39 AM EST Narrative Authorizing ProviderResult TypeResult Angel Parker MDLAB BLOOD ORDERABLES Final ResultPerforming OrganizationAddressCity/State/ZIP CodePhone Number [facility] [address] [place] [address], * Hepatitis B Surface Antibody Quantitation (02/25/2025 10:23 AM EST)Component ValueRef RangeTest MethodAnalysis TimePerformed AtPathologist SignatureANTI HBS QUANT.6.2mIU/mL02/25/2025 2:15 PM [facility] Specimen (Source)Anatomical Location / LateralityCollection Method / Volume Collection TimeReceived TimeBloodVenous blood / UnknownVenipuncture / Unknown 02/25/2025 10:23 AM EST02/25/2025 10:39 AM EST Narrative [facility] - 02/25/2025 2:15 PM EST Vaccinated: >=10 mIU/mL, Positive (Immune) Unvaccinated: <10 mIU/mL, Negative (Not Immune) Authorizing ProviderResult TypeResult StatusLayton ARCHIBALD BLOOD ORDERABLES Final ResultPerforming OrganizationAddressCity/State/ZIP CodePhone Number [facility] [address] [place] [address], * Hepatitis B surface antigen (02/25/2025 10:23 AM EST)ComponentValueRef Range Test MethodAnalysis TimePerformed AtPathologist SignatureHEPATITIS B SURF AG Cvl-JeptyduuQvl-Ezvbmplb06/14/2025 2:07 PM [facility] LABORATORYSpecimen (Source)Anatomical Location / LateralityCollection Method / VolumeCollection TimeReceived TimeBloodVenous blood / UnknownVenipuncture / Hofpfeq6402/25/2025 10:23 AM EST02/25/2025 10:39 AM EST Narrative Authorizing ProviderResult TypeResult StatusLayton ARCHIBALD BLOOD ORDERABLES Final ResultPerforming OrganizationAddressty/State/ZIP CodePhone Number [facility] [address] [place] [address], * Thiamin (Vitamin B1), WB (02/25/2025 6:29 AM EST)ComponentValueRef RangeTest MethodAnalysis TimePerformed AtPathologist SignatureTHIAMIN (VITAMIN B1), WB92 70 - 180 nmol/L11/ 10:35 AM [facility] LABORATORIESComment: ADDITIONAL INFORMATION This test was developed and its performance characteristics determined by [facility] in a manner consistent with CLIA requirements. This test has not been cleared or approved by the U.S. Food and Drug Administration. Test Performed by: [facility] [address] [place] [address] Product Development Ecologist: Haseeb El Ph.D.; CLIA# [id number] Specimen (Source)Anatomical Location / LateralityCollection Method / Volume Collection TimeReceived TimeBloodVenous blood / UnknownVenipuncture / Unknown 02/25/2025 6:29 AM EST02/25/2025 6:45 AM EST Narrative Authorizing ProviderResult TypeResult StatusAudra E Phlipot GLOBAL ENGINEERING MANAGER-CNPLAB BLOOD ORDERABLESFinal ResultPerforming OrganizationAddressCity/State/[facility] CodePhone Number [facility] [address] [place] [address], * (ABNORMAL) Vitamin D 25 hydroxy (02/25/2025 6:29 AM EST)ComponentValueRef RangeTest MethodAnalysis TimePerformed AtPathologist SignatureVITAMIN D 25 HYD TOT14.6(L)30.0 - 100.0 ng/mL02/25/2025 12:08 PM ESTCENTERVILLE LABORATORYSpecimen (Source)Anatomical Location / LateralityCollection Method / VolumeCollection TimeReceived TimeBloodVenous blood / UnknownVenipuncture / Eqiahna4702/25/2025 6:29 AM EST02/25/2025 6:41 AM EST Narrative [facility] - 02/25/2025 12:08 PM EST Vitamin D status 25 [place] Vitamin D Deficiency <20 ng/mL Insufficiency ? 20-29 ng/mL Sufficiency ? 30-100 ng/mL Toxicity >100 ng/mL NOTE: A pediatric reference range has not been established by the internal specialist of this kit. The [place] [employer] recommends a Vitamin D level of = or >20ng/mL in infants and children. Authorizing ProviderResult TypeResult StatusAudra E Phlipot GLOBAL ENGINEERING MANAGER-CNPLAB BLOOD ORDERABLESFinal ResultPerforming OrganizationAddressCity/State/ZIP CodePhone Number [facility] [address] [place] [address], [place] [phone] * (ABNORMAL) C-reactive protein (02/25/2025 6:29 AM EST)ComponentValueRef Range Test MethodAnalysis TimePerformed AtPathologist SignatureC REACTIVE PROTEIN1.6 (H)<=0.7 mg/dL02/25/2025 7:21 AM ESTWEISMAN CHILDREN'S REHABILITATION HOSPITALpecimen (Source)Anatomical Location / LateralityCollection Method / VolumeCollection TimeReceived TimeBloodVenous blood / UnknownVenipuncture / Orsjxqe6902/25/2025 6:29 AM EST02/25/2025 6:41 AM EST Narrative Authorizing ProviderResult TypeResult StatusAudra E Phlipot GLOBAL ENGINEERING MANAGER-CNPLAB BLOOD ORDERABLESFinal ResultPerforming OrganizationAddressCity/State/ZIP CodePhone Number [facility] [address] [place] [address], [place] * CT brain without contrast (02/24/2025 7:25 [...] PM Authorizing ProviderResult TypeResult StatusRachel Melvi Villalobos GLOBAL ENGINEERING MANAGER-[facility] CT ORDERABLESFinal Result * (ABNORMAL) POCT Nursing Urine Macroscopic UA (02/24/2025 4:23 PM EST)Component ValueRef RangeTest MethodAnalysis TimePerformed AtPathologist SignatureBR[facility] Urine Specific Gravity1.0151.010, 1.015, 1.020, 1.6049402/24/2025 4:26 PM EST [facility] Urine Leukocyte EsteraseLarge(A) Fwxjnmab82/13/2025 4:26 PM [facility] Urine NitritePositive(A)Sggjuesa64/13/2025 4:26 PM [facility] Urine pH6.55.0, 6.0, 6.5, 7.0, 7.5, 8.0, 8.5, 5. 4:26 PM [facility] U[facility] Protein>=300 mg/dL(A) Dpzriyzt26/13/2025 4:26 PM [facility] Urine Rbasmfe354 mg/dL(A)Glbymkuj83/13/2025 4:26 PM [facility]PRO[facility] Urine Eecffel83 mg/dL(A)Klcamzbf16/13/2025 4:26 PM [facility] Urine Urobilinogen4.0 E.U./dL02/24/2025 4:26 PM [facility] Urine BilirubinLarge(A)Negative 02/24/2025 4:26 PM [facility] Urine Blood/HGB Large(A)Egwxgkji39/13/2025 4:26 PM [facility] Specimen (Source)Anatomical Location / LateralityCollection Method / Volume Collection TimeReceived VjkrNutrs70/13/2025 4:23 PM EST02/24/2025 4:26 PM EST Narrative Authorizing ProviderResult TypeResult StatusRyan Julian Cantrell MDPOINT OF CARE TEST ORDERABLESFinal ResultPerforming OrganizationAddressCity/State/ZIP CodePhone Number [facility] [address] [place] [address], * Extra Urine Culture (02/24/2025 4:22 PM EST)ComponentValueRef RangeTest Method Analysis TimePerformed AtPathologist SignatureExtra TubeAuto Resulted 02/24/2025 6:02 PM [facility] ([facility]) Anatomical Location / LateralityCollection Method / VolumeCollection Time Received TimeUrineUrine specimen collection, clean catch / Dgqzkau6702/24/2025 4:22 PM EST02/24/2025 5:25 PM EST Narrative Authorizing ProviderResult TypeResult StatusRachel D Karchner GLOBAL ENGINEERING MANAGER-CNPURINE ORDERABLESFinal ResultPerforming OrganizationAddressty/State/ZIP CodePhone Number [address] [address], * Extra Urine Forman (02/24/2025 4:21 PM EST)ComponentValueRef RangeTest Method Analysis TimePerformed AtPathologist SignatureExtra TubeAuto Resulted 02/24/2025 6:02 PM [facility] (Source) Anatomical Location / LateralityCollection Method / VolumeCollection Time Received TimeUrineUrine specimen collection, clean catch / Qiwepmg4902/24/2025 4:21 PM EST02/24/2025 5:25 PM EST Narrative Authorizing ProviderResult TypeResult StatusRachel D Wilfredo GLOBAL ENGINEERING MANAGER-CNPURINE ORDERABLESFinal ResultPerforming OrganizationAddressCity/State/ZIP CodePhone Number [address] [address], * Extra Urine (02/24/2025 4:21 PM EST)ComponentValueRef RangeTest MethodAnalysis TimePerformed AtPathologist SignatureExtra TubeAuto Hpborlrq37/13/2025 6:02 PM ESTCl[facility] Hospital (Source)Anatomical Location / LateralityCollection Method / VolumeCollection TimeReceived TimeUrineUrine specimen collection, clean catch / Gpwwshp2402/24/2025 4:21 PM EST02/24/2025 5:25 PM EST Narrative Authorizing ProviderResult TypeResult StatusRachel D Billiener GLOBAL ENGINEERING MANAGER-CNPURINE ORDERABLESFinal ResultPerforming OrganizationAddSaint John Vianney Hospitalty/State/ZIP CodePhone Number [address] [address], from Last 3 Months Insurance Advance Directives * Full Code (Latest Code Status on File) Date ActivatedDate QgqypytkxxfFpirtkgo16/3/2025 6:49 AM03/25/2025 3:29 AM * Full Code Date ActivatedDate GerblwlbjqiAqkgsvfv17/14/2025 4:11 AM03/01/2025 11:04 PM Care Teams Team MemberRelationshipSpecialtyStart DateEnd Date Rico Thakkar MD [address] [address] PCP - GeneralFamily Asfwmjfz70/13/25
[2025-04-01 12:52] LABS: Hemoglobin 7.2 g/dL (14.0-18.0); Immature Granulocytes Abs Auto 0.04 10^3/uL (0.00-0.03); Immature Granulocytes Pct Auto 0.7 % (0.0-0.5); Lymphocytes Absolute Auto 0.8 10^3/uL (1.2-3.8); Mean Corpuscular HGB Conc 31.6 g/dL (29.9-35.2); Mean Corpuscular Hemoglobin 32.0 pg (25.9-34.0); Mean Corpuscular Volume 101.3 fL (80.0-94.0); Red Blood Count 2.25 10^6/uL (4.70-6.10); White Blood Count 5.4 10^3/uL (4.0-11.0)
[2025-04-01 13:01] LABS: Platelet Count 14 10^3/uL (150-450)
[2025-04-01 13:02] LABS: Hematocrit 22.8 % (42.0-54.0)
== END 2025-04-01 12:29 | disposition home or self-care (01) ==
LOC: LAB 12:28
PROVIDERS: PCP Family Medicine; Visit Provider Nurse Practitioner Family
DX: D64.9 Anemia, unspecified (principal)
CPT/HCPCS: 36415; 85025